=== PATIENT | female | born 1970 | race Caucasian/White ===

== ENCOUNTER → 2018-10-29 14:58 | Outpatient (CLI) | payer OTHER, SELFPAY ==
[2016-08-24 21:06] VITALS: BMI 31.6
[2018-11-04 07:36] LABS: HPV APTIMA, High Risk Negative (Negative)
== END ==
PROVIDERS: Visit Provider Obstetrics & Gynecology
DX: Z12.4 Encounter for screening for malignant neoplasm of cervix (principal)
CPT/HCPCS: 88175; G0145

== ENCOUNTER → 2018-12-22 13:17 | Outpatient (CLI) | payer OTHER, SELFPAY ==
--- NOTE | 2018-12-22 13:23 | BI_ITS ---
MAMMOGRAPHY - BILATERAL SCREENING REASON FOR EXAM: Female, 48 years old. Routine annual screening examination. PERTINENT HISTORY: Grandmother with breast cancer. TECHNIQUE: Digital bilateral breast kristen (3D mammographic acquisition) in the CC and MLO projections. 2-D mediolateral oblique (MLO) and craniocaudad (CC) views of both breasts were obtained. CAD: Full Field Digital Mammography with Computer Added Detection was performed. COMPARISON: Comparison is made with prior abdomen examination dated February 26, 2013. FINDINGS: Breast Composition: There are scattered areas of fibroglandular density. There is a 7.3 mm x 6.2 mm well-defined nodular density in the superior retroareolar region of the left breast. Correlation with ultrasound is recommended. Stable small bilateral axillary lymph nodes. No other significant abnormalities are identified. BI/SCREENING MAMM (CAD), BILAT IMPRESSION: 7.3 mm x 6.2 mm well-defined nodule in the superior retroareolar region of the left breast as described. Correlation with ultrasound is recommended. ASSESSMENT CATEGORY: BIRADS Category 0: Incomplete. Need additional imaging evaluation. A letter regarding these results will be sent to the patient by the facility within 30 days. Approximately 10% of breast cancers are not detected by mammography. A normal mammogram should not delay biopsy of a clinically suspicious abnormality. [id number] Electronically Signed: Wilberto Sommer MD at 12:26 EST , Service support ,
== END ==
PROVIDERS: Referring Provider Obstetrics & Gynecology; Visit Provider Obstetrics & Gynecology
DX: Z12.31 Encounter for screening mammogram for malignant neoplasm of breast (principal)
CPT/HCPCS: 77063; 77067

== ENCOUNTER → 2019-01-04 15:17 | Outpatient (CLI) | payer OTHER, SELFPAY ==
--- NOTE | 2019-01-04 15:19 | US_ITS ---
STUDY: ULTRASOUND BREAST - LEFT REASON FOR EXAM: Female, 48 years old. Abnormal screening mammogram. TECHNIQUE: Axial and longitudinal images of the LEFT breast were performed with a high resolution ultrasound transducer. COMPARISON: Comparison is made with prior mammogram dated December 22, 2018. FINDINGS: LEFT Breast: There is a 7 mm x 6 mm x 3 mm cyst at the 12:00 position breast at 1 cm from nipple. This corresponds to the mammographic abnormality. US/Breast Limited Unilateral IMPRESSION: The mammographic abnormality corresponds to a 7 mm x 6 mm x 3 mm cyst. Routine mammographic follow-up is recommended. ASSESSMENT CATEGORY: BIRADS Category 2: Benign. A letter regarding these results will be sent to the patient by the facility within 30 days. Electronically Signed: Wilberto Sommer MD at 8:40 EST , Service support ,
== END ==
PROVIDERS: Family Provider Internal Medicine; PCP Internal Medicine; Referring Provider Obstetrics & Gynecology; Visit Provider Obstetrics & Gynecology
DX: R92.8 Other abnormal and inconclusive findings on diagnostic imaging of breast (principal)
CPT/HCPCS: 76642

== ENCOUNTER → 2019-04-28 15:30 | Outpatient (CLI) | payer OTHER, SELFPAY ==
[2016-08-24 21:06] VITALS: BMI 31.6
--- NOTE | 2019-04-28 16:01 | EKG12_ITS ---
Test Reason : PRE-OP Blood Pressure : / mmHG Vent. Rate : 074 BPM Atrial Rate : 074 BPM P-R Int : 152 ms QRS Dur : 080 ms QT Int : 372 ms P-R-T Axes : 048 069 021 degrees QTc Int : 412 ms Normal sinus rhythm Normal ECG Confirmed by SUMIT ANGELO, SELVIN ([id number]), editorial writer MAL PINK ([id number]) on 04/29/2019 6:45:18 AM Referred By: Law Hoffman Confirmed By:SELVIN ARANA MD
[2019-04-28 16:45] LABS: Hematocrit 35.1 % (37-47); Hemoglobin 11.3 g/dl (12.0-15.0); Mean Corp Hgb Conc 32.2 g/gl (32-36); Mean Corpuscular Hgb 26.7 pg (27.0-32.0); Mean Corpuscular Volume 82.8 fL (81-99); Mean Platelet Vol. 12.1 fl (6.2-12.0); Platelet Count 235 K/mm3 (150-450); RBC Distribution Width CV 15.2 % (11.6-14.6); RBC Distribution Width SD 45.8 fl (35.1-43.9); Red Blood Count 4.24 M/mm3 (4.2-5.4); White Blood Count 8.4 K/mm3 (4.4-11.0)
[2019-04-28 16:55] LABS: Scan Indicated on CBC? Y/N NO
[2019-04-28 16:58] LABS: Anion Gap 6 (5-15); BUN 17 mg/dL (7-18); BUN/Creat Ratio 29.3 RATIO (10-20); Calcium,Total 8.7 mg/dL (8.5-10.1); Chloride 108 mmol/L (98-107); Creatinine, Serum 0.58 mg/dL (0.55-1.02); EST Glomerular Filtration Rate 117 mL/min (>60); Est Glom Filt Rate - Afr Amer 142 mL/min (>60); Glucose 101 mg/dL (74-106); Sodium Level 141 mmol/L (136-145)
== END ==
PROVIDERS: Family Provider Internal Medicine; PCP Internal Medicine; Referring Provider Physician Assistant; Visit Provider Physician Assistant
DX: Z01.818 Encounter for other preprocedural examination (principal); Z01.810 Encounter for preprocedural cardiovascular examination; E11.9 Type 2 diabetes mellitus without complications
CPT/HCPCS: 36415; 80048; 85027; 93005

== ENCOUNTER → 2019-11-24 | Outpatient (CLI) | payer OTHER, SELFPAY ==
[2019-06-17 08:36] VITALS: BMI 31.6
[2019-12-01 17:49] LABS: HPV APTIMA, High Risk Negative (Negative); HPV Reflexed? YES, CHARGE PATIENT
== END | disposition home or self-care (01) ==
LOC: LABSPEC 15:19
PROVIDERS: Visit Provider Obstetrics & Gynecology
DX: Z12.4 Encounter for screening for malignant neoplasm of cervix (principal)
CPT/HCPCS: 87624; 88175; G0145

== ENCOUNTER → 2019-12-23 15:25 | Outpatient (CLI) | payer OTHER, SELFPAY ==
[2019-06-17 08:36] VITALS: BMI 31.6
[2019-12-01 16:15] VITALS: BMI 31.6
--- NOTE | 2019-12-23 15:42 | BI_ITS ---
MAMMOGRAPHY - BILATERAL SCREENING REASON FOR EXAM: Female, 49 years old. Routine annual screening examination. PERTINENT HISTORY: Grandmother with breast cancer. TECHNIQUE: Digital bilateral breast jocy (3D mammographic acquisition) in the CC and MLO projections. 2-D mediolateral oblique (MLO) and craniocaudad (CC) views of both breasts were obtained. CAD: Full Field Digital Mammography with Computer Added Detection was performed. COMPARISON: Comparison is made with prior study dated December 22, 2018. FINDINGS: Breast Composition: There are scattered areas of fibroglandular density. There are no dominant masses or suspicious calcifications. Stable 7.3 mm by 8mm well-defined nodule density in the superior retroareolar region of the left breast. Prior ultrasound demonstrated this to be a small cyst. Stable small bilateral benign-appearing axillary lymph nodes. No other significant abnormalities are identified. There has been no significant change since the prior study. BI/SCREEN MAMM (CAD) W/JOCY BILAT IMPRESSION: Stable bilateral screening mammogram. Yearly follow-up mammogram recommended. (A) ASSESSMENT CATEGORY: BIRADS Category 2: Benign. A letter regarding these results will be sent to the patient by the facility within 30 days. Approximately 10% of breast cancers are not detected by mammography. A normal mammogram should not delay biopsy of a clinically suspicious abnormality. [id number] Electronically Signed: Wilberto Sommer, at 8:23 EST , Service support ,
== END ==
PROVIDERS: PCP Internal Medicine; Referring Provider Obstetrics & Gynecology; Visit Provider Obstetrics & Gynecology
DX: Z12.31 Encounter for screening mammogram for malignant neoplasm of breast (principal)
CPT/HCPCS: 77063; 77067

== ENCOUNTER → 2020-05-10 13:17 | Outpatient (CLI) | payer OTHER, SELFPAY ==
[2020-05-10 12:55] VITALS: BMI 31.6
[2020-05-10 15:27] LABS: Absolute Lymphocyte Count 1.92 X10^3/uL (0.83-4.51); Absolute Neutrophil Count 2.7 X10^3/uL (2.0-7.7); Basophil# 0.04 X10^3/uL; Basophil% 0.8 % (0-1); Eosinophil# 0.11 X10^3/uL; Eosinophils% 2.1 % (0-5); Hematocrit 41.2 % (37-47); Hemoglobin 13.4 g/dL (12.0-15.0); Lymphocyte # 1.92 X10^3/ul (4.0); Lymphocyte % 37.1 % (19-41); Mean Corp Hgb Conc 32.5 g/dL (32-36); Mean Corpuscular Hgb 27.3 pg (27.0-32.0); Mean Corpuscular Volume 83.9 fL (81-99); Monocyte# 0.44 X10^3/uL; Monocyte% 8.5 % (0-10); NRBC Flagged by Analyzer 0 % (0-5); Neutrophil # 2.66 X10^3/uL (2.7-7.7); Neutrophil % 51.3 % (47-70); Platelet Count 181 K/mm3 (150-450); RBC Distribution Width CV 15.3 % (11.6-14.6); RBC Distribution Width SD 46.4 fl (35.1-43.9); Red Blood Count 4.91 M/mm3 (4.2-5.4); White Blood Count 5.2 K/mm3 (4.4-11.0)
[2020-05-10 16:02] LABS: AST(SGOT) 11 U/L (15-37); Alanine Aminotransfer ALT/SGPT 16 U/L (13-56); Alkaline Phosphatase 51 U/L (45-117); Anion Gap 7 (5-15); BUN 10 mg/dL (7-18); BUN/Creat Ratio 15.9 RATIO (10-20); Calcium,Total 9.1 mg/dL (8.5-10.1); Chloride 102 mmol/L (98-107); Creatinine, Serum 0.63 mg/dL (0.55-1.02); EST Glomerular Filtration Rate 107 mL/min (>60); Est Glom Filt Rate - Afr Amer 129 mL/min (>60); Glucose 91 mg/dL (74-106); Potassium 4.1 mmol/L (3.5-5.1); Sodium Level 138 mmol/L (136-145)
== END ==
PROVIDERS: PCP Internal Medicine; Referring Provider Internal Medicine; Visit Provider Internal Medicine
DX: R06.02 Shortness of breath (principal)
CPT/HCPCS: 36415; 80053; 85025

== ENCOUNTER → 2020-05-10 13:40 | Outpatient (CLI) | payer OTHER, SELFPAY ==
[2020-05-10 12:55] VITALS: BMI 31.6
--- NOTE | 2020-05-10 13:40 | RAD_ITS ---
STUDY: X-RAY CHEST REASON FOR EXAM: Female, 49 years old. CHEST PRESSURE. DR ONLY ORDER PA VIEW TECHNIQUE: Single frontal view of the chest. COMPARISON: August 24, 2016 FINDINGS: The lungs are clear and expanded. There is no demonstrated pleural abnormality. Normal size heart. Normal mediastinum and binh. Normal visualized pulmonary arteries. Normal visualized aortic arch and descending thoracic aorta. Normal visualized thoracic spine. Normal visualized ribs, clavicles, and shoulders. There is no demonstrated abnormality of the visualized soft tissue structures of the upper abdomen. RAD/Chest 1 View IMPRESSION: Normal x-ray examination of the chest. Electronically Signed: Olegario Quinteros MD at 19:34 EDT Tel , Service support ,
== END ==
PROVIDERS: PCP Internal Medicine; Referring Provider Internal Medicine; Visit Provider Internal Medicine
DX: R06.02 Shortness of breath (principal)
CPT/HCPCS: 71045

== ENCOUNTER → 2020-06-07 07:41 | Outpatient (CLI) | payer OTHER, SELFPAY ==
[2020-05-10 12:55] VITALS: BMI 31.6
--- NOTE | 2020-06-07 07:47 | US_ITS ---
STUDY: THYROID ULTRASOUND REASON FOR EXAM: Female, 50 years old. Goiter TECHNIQUE: Ultrasound evaluation of the thyroid was performed with real-time and static myers-scale imaging. COMPARISON: None. FINDINGS: RIGHT LOBE: The right lobe of the thyroid gland is enlarged and measures 5.5 cm x 1.7 cm x 2.0 cm. There is a heterogeneous echotexture. There is a 9 mm x 10 mm x 4 mm solid hypoechoic nodule in the midpole of the right lobe. LEFT LOBE: The left lobe of the thyroid gland is enlarged and measures 5.2 cm x 1.8 cm x 1.6 cm. There is a heterogeneous echotexture. There is a 7 mm x 3 mm x 3 mm solid hypoechoic nodule in the midportion of the lobe. ISTHMUS: The isthmus measures 2.0 mm. The regional lymph nodes are normal. US/Thyroid IMPRESSION: Mild thyromegaly with heterogeneous echotexture. Small solid nodules in both lobes as described Electronically Signed: Wilberto Sommer, at 12:36 EDT , Service support ,
[2020-06-08 07:09] LABS: SARS-COV-2 TOTAL ABS Nonreactive (Nonreactive)
[2020-06-08 20:27] LABS: Anti-Thyroglobulin AB < 1.0 IU/mL (0.0-0.9); Thyroid Peroxidase AB < 9 IU/mL (0-34)
== END ==
PROVIDERS: PCP Internal Medicine; Referring Provider Otolaryngology; Visit Provider Otolaryngology
DX: Z03.818 Encounter for observation for suspected exposure to other biological agents ruled out (principal); E04.9 Nontoxic goiter, unspecified; R06.02 Shortness of breath
CPT/HCPCS: 36415; 76536; 84432; 84443; 86376; 86769; 86800; G2023

== ENCOUNTER 2020-09-14 07:24 | Day surgery (SDC) | payer OTHER, SELFPAY ==
[2020-06-13 16:22] VITALS: BMI 31.6
[2020-09-14 08:11] VITALS: BP 118/61; PULSE 62; RESP 16; TEMP 36.9; O2SAT 100; BMI 28.3
[2020-09-14] MEDS: Lactated Ringers 1,000 ML 100 ML IV (08:15)
--- NOTE | 2020-09-14 08:26 | H&P.OPEN ---
History of Present Illness Date of Admission: 09/14/20 The patient is a 50 year old F here for screening colonoscopy. The patient reports she has never had a colonoscopy in the past. She is not on any blood thinners. She has no abdominal pain or blood in her stool. No family history of colon cancer. Past Medical/Surgical History - Planned Operation Planned Operative Procedure/s: COLONOSCOPY Date of Operative Procedure: 09/14/20 Permit Signed: Yes S.O.S: No Is This Patient Having a Total Joint: No - Previous Hospitalizations/Surgeries HX Hospitalizations: No HX of Surgeries: T&A, BMT. TUBAL 2000. LEEP 2012. PILONIDAL CYST. L SHOULDER SURGERY Any Problems With Anesthesia: No You/Your Family Experience Fever (Hyperthermia) With Anes: No Cholinesterase deficiency: No - Cardiovascular Hx Chest Pain within Last 2 months: No Hx of Irregular Heartbeat and/or Afib: No Hx Heart Attack: No Hx Congestive Heart Failure: No Hx Rheumatic Fever: No Hx Hypertension: Yes - OFF MEDS FOR 5 YRS Hx Internal Defibrillator: No Hx Pacemaker: No Hx Cardiac Catheterization: No Hx Cardiac Surgery/Stents/Etc.: No Hx Stress Test: No HX Edema: No Hx Pain in Legs when Walking/Leg Cramps: No - Respiratory Chronic Cough: No HX of Shortness of Breath: No Hoarseness: No Hx Chronic Obstructive Pulmonary Disease (COPD): No Hx Asthma: No Hx Emphysema: No Hx Sleep Apnea: No Hx Oxygen Use at Home: No Hx Respiratory Tract Infection/Cold (presently): No Do You Snore Loudly (louder than talking or can be heard): No Do You Often Feel Tired/ Fatigued/ Sleepy Dring Daytime?: No Has Anyone Observed You Stop Breathing During Sleep?: No Result (for STOP score): Negative Hx Smoking: No Smoking Status: Never smoker - Gastrointestinal Hx Gastroesophageal Reflux: No Hx Gastrointestinal Disorders: Yes - IBS 25+ YRS AGO Hx Gastrointestinal Bleed: No Hx Ulcer: No Hx Hiatal Hernia: No Difficulty Chewing/Swallowing: No Recent Onset of Swallowing Problems: No Special diet followed at home: No Hx Unplanned Weight Loss of 20#: No HX Unplanned Weight Gain of 20#: No - Neurological Hx Seizures: No HX Syncope/Blackout Spells/Unconsciousness: No Hx CVA/Stroke: No Hx Transient Ischemic Attacks (TIA): No Hx Multiple Sclerosis: No Hx Parkinson's Disease: No Hx Head/Neck Injury: No Hx Headaches: Yes - HX OF MIGRAINES Hx Back Injury/Pain: No Recent Onset of Speech Difficulty: No Restless Legs: No Does patient have nerve stimulator: No - Blood Disorder Hx Leukemia: No Bleeding Tendencies: No Hx Deep Vein Thrombosis: No Hx High Cholesterol: Yes - NO MEDS Blood Transmitted Disease: No Hx Hepatitis: No Hx Cirrhosis: No Hx Anemia: No Hx Blood Disorders: No - Reproduction : No Is Patient Lactating: No Hx Hysterectomy: No Hx Tubal Ligation: Yes Are You Post Menopause: No - Genitourinary Hx Renal Disease: No - Musculoskeletal Hx Arthritis: No Hx Rheumatoid Arthritis: No Hx Gout: No Recent Onset of an Orthopedic Problem: No - Endocrine Hx Diabetes: No Thyroid Disease: No Hx Steroid Therapy: Yes - 03/2020 - Psycho/Social Hx Substance Use: No Hx Alcohol Use: No Hx Anxiety: No Hx Depression: No Mental Illness: No Hx Dementia: No - Miscellaneous Hx Cancer: No Recent Exposure to Contagious Disease: No Active MRSA: No Hx of C-Diff: No Any Loose Teeth: Yes - TEMPORARY CROWN LOWER BACK LEFT Allergies No Known Allergies Allergy (Verified 09/06/20 14:41) - Discharge Is Pt Admitted From a [facility], or a Fdc: No Who Could Help: SON After D/C, Where Do you Plan to Go: Return Home - Physical Exam Vitals/I&O's: Vital Signs Temp Pulse Resp BP Pulse Ox 98.4 F 62 16 118/61 100 09/14/20 08:11 09/14/20 08:11 09/14/20 08:11 09/14/20 08:11 09/14/20 08:11 Oxygen Delivery Method Room Air Weight: 186 lb 8.177 oz Body Mass Index (BMI) 28.3 General: Alert, Oriented x3 Neck: No JVD Lungs: Normal air movement Cardiovascular: Regular rate, Regular Rhythm Abdomen: Soft, Non Tender, Non-Distended Current Medications Lactated Ringer's () 1,000 mls @ 100 mls/hr IV .Q10H ULICES Last Admin: 09/14/20 08:15 Dose: 100 mls/hr Documented by: Assessment/Plan All Active Problems (Last Reviewed 06/13/20 @ 16:19 by Abena N Cogar) Frequent headaches (Resolved) Anemia (Resolved) 50-year-old here for screening colonoscopy I explained endoscopy in detail to the patient. I explained the risks including but not limited to stroke or heart attack with anesthesia, perforation of the GI tract, bleeding, infection. I explained that any of these could necessitate further emergency surgery. The patient understands and all questions were answered sufficiently. The patient wishes to proceed with procedure. Omar Guardado MD Pager: [facility] [address] [place] [address] [address] [place] [address] Office: Surgery Risks - Colonoscopy Risks Include but are not Limited To: Risks include but are not limited to: Bleeding, perforation requiring further surgery, inability to complete colonoscopy requiring barium enema.
--- NOTE | 2020-09-14 09:00 | OP.COLON_ITS ---
Patient Name: Carla Galindo Procedure Date: 09/14/2020 8:32 AM Date of : 1970 Age: 50 Procedure: Colonoscopy Indications: Screening for colorectal malignant neoplasm Providers: Omar Guardado MD Referring MD: Landry Bro MD Medicines: Monitored Anesthesia Care Patient Profile: This is a 50 year old female. Refer to note in patient chart for documentation of history and physical. Last Colonoscopy: none. The patient's first colonoscopy is today. Complications: No immediate complications. Procedure: Pre-Anesthesia Assessment: - Prior to the procedure, a History and Physical was performed, and patient medications and allergies were reviewed. The patient's tolerance of previous anesthesia was also reviewed. The risks and benefits of the procedure and the sedation options and risks were discussed with the patient. All questions were answered, and informed consent was obtained. Prior Anticoagulants: The patient has taken no previous anticoagulant or antiplatelet agents. After reviewing the risks and benefits, the patient was deemed in satisfactory condition to undergo the procedure. After I obtained informed consent, the scope was passed under direct vision. Throughout the procedure, the patient's blood pressure, pulse, and oxygen saturations were monitored continuously. The pediatric colonoscope was introduced through the anus and advanced to the cecum, identified by appendiceal orifice and ileocecal valve. The colonoscopy was performed without difficulty. The patient tolerated the procedure well. The quality of the bowel preparation was good. Scope In: 8:42:24 AM Scope Withdrawal Time 0 hours 6 minutes 8 seconds Scope Out: 8:56:19 AM Total Procedure Duration Time 0 hours 13 minutes 55 seconds Findings: The entire examined colon appeared normal on direct and retroflexion views. Impression: - The entire examined colon is normal on direct and retroflexion views. - No specimens collected. Recommendation: - Discharge patient to home. - Resume previous diet. - Continue present medications. - Repeat colonoscopy in 10 years for screening purposes. Procedure Code(s): --- Professional --- 27766, Colonoscopy, flexible; diagnostic, including collection of specimen(s) by brushing or washing, when performed (separate procedure) Diagnosis Code(s): --- Professional --- Z12.11, Encounter for screening for malignant neoplasm of colon CPT copyright 2017 [employer]. All rights reserved. The codes documented in this report are preliminary and upon alarm field technician review may be revised to meet current compliance requirements. Omar Guardado MD 09/14/2020 9:00:32 AM This report has been signed electronically. Number of Addenda: 0 Note Initiated On: 09/14/2020 8:32 AM
--- NOTE | 2020-09-14 09:01 | OP.CCLET_ITS ---
09/14/2020 Landry Bro MD [address] [place] [address] [place] [address] Re : Colonoscopy procedure for [facility] Dear Dr. Bro This procedure was performed on Monday, September 14, 2020. My impressions and recommendations are as follows: Impressions : - The entire examined colon is normal on direct and retroflexion views. - No specimens collected. Recommendations : - Discharge patient to home. - Resume previous diet. - Continue present medications. - Repeat colonoscopy in 10 years for screening purposes. My findings are described in the full procedure note, which is enclosed. If I can be of further assistance, please feel free to contact me at Doctor phone number(s): , Work: . Sincerely, Omar Guardado MD 09/14/2020 9:00:32 AM This report has been signed electronically.
[2020-09-14 09:02] VITALS: BP 118/61; BP 120/74; PULSE 72; RESP 18; TEMP 36.3; O2SAT 98
[2020-09-14 09:05] VITALS: BP 118/61; BP 118/79; PULSE 59; RESP 16; O2SAT 100
[2020-09-14 09:10] VITALS: BP 118/61; BP 119/74; PULSE 59; RESP 16; O2SAT 100
[2020-09-14 09:14] VITALS: BP 116/74; BP 118/61; PULSE 62; RESP 16; TEMP 36.3; O2SAT 100
[2020-09-14 09:22] VITALS: BP 118/61
== END 2020-09-14 09:30 | disposition home or self-care (01) ==
LOC: EN 07:24 → AC 07:25
PROVIDERS: Anesthesiology; PCP Internal Medicine; Referring Provider Internal Medicine; Visit Provider Surgery
PROC: 0DJD8ZZ Inspection of Lower Intestinal Tract, Via Natural or Artificial Opening Endoscopic (ICD-10-PCS; CPT 45378; principal; 2020-09-14 08:40)
DX: Z12.11 Encounter for screening for malignant neoplasm of colon (principal); Z20.828 Contact with and (suspected) exposure to other viral communicable diseases; I10 Essential (primary) hypertension
CPT/HCPCS: 45378; 87635; C9803; J7120; J2405; U0003

== ENCOUNTER → 2021-03-14 15:43 | Outpatient (CLI) | payer OTHER, SELFPAY ==
[2020-12-12 15:53] VITALS: BMI 31.3
--- NOTE | 2021-03-14 15:45 | BI_ITS ---
MAMMOGRAPHY - BILATERAL SCREENING REASON FOR EXAM: Female, 50 years old. Routine annual screening examination. PERTINENT HISTORY: Grandmother with breast cancer. TECHNIQUE: Digital bilateral breast jocy (3D mammographic acquisition) in the CC and MLO projections. 2-D mediolateral oblique (MLO) and craniocaudad (CC) views of both breasts were obtained. CAD: Full Field Digital Mammography with Computer Added Detection was performed. COMPARISON: Comparison is made with prior study dated 12/23/2019 and 12/22/2018. FINDINGS: Breast Composition: The breasts are heterogeneously dense, which may obscure small masses. There are no dominant masses or suspicious calcifications. The previously seen 7.3 mm x 8 mm well-defined nodule in the superior retroareolar region of the left breast is not seen at this time. Stable benign-appearing bilateral axillary lymph nodes. No other significant abnormalities are identified. BI/SCRN MAMM (CAD)W/JOCY BILAT IMPRESSION: Stable bilateral screening mammogram. Yearly follow-up mammogram recommended. (A) ASSESSMENT CATEGORY: BIRADS Category 2: Benign. A letter regarding these results will be sent to the patient by the facility within 30 days. Approximately 10% of breast cancers are not detected by mammography. A normal mammogram should not delay biopsy of a clinically suspicious abnormality. [id number] Electronically Signed: Wilberto Sommer MD at 8:11 EDT , Service support ,
== END ==
PROVIDERS: PCP Internal Medicine; Referring Provider Obstetrics & Gynecology; Visit Provider Obstetrics & Gynecology
DX: Z12.31 Encounter for screening mammogram for malignant neoplasm of breast (principal)
CPT/HCPCS: 77063; 77067

== ENCOUNTER 2021-04-01 12:54 | Outpatient (RCR) | payer OTHER, SELFPAY ==
[2020-12-12 15:53] VITALS: BMI 31.3
== END 2021-04-22 23:59 ==
LOC: NS 12:54
PROVIDERS: PCP Internal Medicine; Visit Provider Internal Medicine
DX: Z71.3 Dietary counseling and surveillance (principal); E66.9 Obesity, unspecified; Z68.31 Body mass index [BMI] 31.0-31.9, adult
CPT/HCPCS: 97802

== ENCOUNTER → 2021-05-03 12:42 | Outpatient (CLI) | payer OTHER, SELFPAY ==
[2021-04-24 13:09] VITALS: BMI 30.9
[2021-05-01 08:07] VITALS: BMI 30.9
--- NOTE | 2021-05-03 13:32 | ST.MBS ---
Modified Barium Swallow - Patient Information Study Date: 05/03/21 Study Time: 13:00 Direct Billable Minutes: 120 Total Minutes procedure & reportin Diagnosis: dysphagia, unspecified (R13.12) Referring Physician: Landry Bro Reason for Referral: To objectively assess swallow function under fluoroscopy and determine presence of aspiration. Medical History: The patient is a 50/F with past medical history including anemia, anxiety and depression, difficulty swallowing, frequent headaches, heart murmur, high blood pressure, hyperlipidemia, IBS (irritable bowel syndrome), sleep apnea, and throat tightness. Dentition: Natural Teeth Mental Status: WNL Respiratory Status: Oxygenating on Room Air - Study Findings Consistencies: Thin Liquid, [place] Thick Liquid, Honey Thick Liquid, Pudding, Cookie - Penetration-Aspiration Scale Penetration-Aspiration Scale: OBJECTIVE ASSESSMENT OF SWALLOW FUNCTION (QUANTITATIVE ? PER TRIAL): PENETRATION / ASPIRATION SCALE (PICHARDO): 1 = does not enter airway 2 = enters airway/above vocal folds/ejected 3 = enters airway/above vocal folds/not ejected 4 = enters airway/contacts vocal folds/ejected 5 = enters airway/contacts vocal folds/not ejected 6 = enters airway/below vocal folds/ejected 7 = enters airway/below vocal folds/not ejected despite effort 8 = enters airway/below vocal folds/no effort - Penetration-Aspiration Scale Score Thin Liquid via teaspoon Result: 1= does not enter airway Thin Liquid via small single sip from cup Result: 1= does not enter airway Thin Liquid via large single sip from cup Result: 1= does not enter airway Thin Liquid via sequential sips from cup Result: 1= does not enter airway [place] Thick Liquid via large single sip from cup Result: 1= does not enter airway Honey Thick Liquid via large single sip from cup Result: 1= does not enter airway Pudding via teaspoon Result: 1= does not enter airway Thin Liquid via sequential sips from straw Result: 1= does not enter airway - Oral Phase Labial Seal: No Labial Escape Tongue Control During Bolus Hold: Cohesive bolus between tongue to palatal seal Bolus Preparation/Mastication: Timely and efficient chewing and mashing Bolus Transport/Lingual Motion: Brisk tongue motion Oral Residue: Complete oral clearance - Pharyngeal Phase Initiation of Pharyngeal Swallow: Bolus head at posterior angle of ramus at first hyoid excursion Soft Palate Elevation: No bolus between soft palate and pharyngeal wall Laryngeal Elevation: Comp. Superior move thyroid cart w/comp. apprx arytenoid cart-epig pet Anterior Hyoid Excursion: Complete anterior movement Epiglottic Movement: Complete inversion Laryngeal Vestibule Closure at Height of Swallow: Complete; no air/contrast in laryngeal vestibule Pharyngeal Stripping Wave: Present - complete Pharyngoesophageal Segment Opening: Complete distension and complete duration; no obstruction of flow Tongue Base Retraction: No contrast between tongue base and posterior pharyngeal wall Pharyngeal Residue: Complete pharyngeal clearance - Esophageal Phase Esophageal Clearance: Complete clearance - Diagnosis/Impression Diagnosis: Swallow Function WNL Impression: Oral phase primarily marked by timely mastication of solid Vilma Doone shortbread cookie with effective oral clearance. Pharyngeal phase primarily marked by timely swallow onset with no aspiration of any consistencies trialed. No significant pharyngeal residue present. Swallow function within normal limits at this time. - Recommendations Diet: Regular Textures, Thin Liquids Compensatory Strategies: Small Bites, Small Sips, Sitting upright Recommend Repeat Modified Barium Swallow: No Need for Skilled Speech Therapy Services: No Education Completed: 1. Described result of evaluation. - Status Active ST Patient: Active - Contact Information [facility] Speech Therapy:: Radha Bernal MA, CCC-MACHINE OR MACHINERY MECHANIC [address] [place], [place] [id number] [email or web address]
== END ==
PROVIDERS: PCP Internal Medicine; Referring Provider Internal Medicine; Visit Provider Internal Medicine
DX: R13.10 Dysphagia, unspecified (principal); R68.89 Other general symptoms and signs
CPT/HCPCS: 74230; 92611

== ENCOUNTER 2021-05-10 06:45 | Day surgery (SDC) | payer OTHER, SELFPAY ==
[2021-05-01 08:07] VITALS: BMI 30.9
[2021-05-10 07:09] VITALS: BP 136/76; PULSE 65; RESP 16; TEMP 36.4; O2SAT 98; BMI 29.5
[2021-05-10] MEDS: Lactated Ringers 1,000 ML 100 ML IV (07:12)
--- NOTE | 2021-05-10 07:22 | PCM.HP.BLA ---
History and Physical Date of Admission: 05/10/21 Intake Vital Signs 05/01/21 08:03 05/01/21 08:07 Height 5 ft 8 in Weight: 205 lb BMI 31.1 30.9 BP 136/86 H Blood Pressure Location Rt brachial Position Sitting Respiration 16 Pulse 71 Pulse Source Monitor Temp 98.1 F Temp Source Temporal Pulse Oximetry (%) 97 Oxygen Delivery Method room air Intake Visit Reasons: DYSPHAGIA, EGD Chief Complaint: SOB/ Dysphagia Director Business Systems Required: No Accompanied by: Self Is patient in pain?: Yes (neck pain) Allergies No Known Allergies Allergy (Verified 05/01/21 08:04) Medications tizanidine 2 mg tablet 2 mg PO BID PRN #30 tab 04/24/21 [Rx Confirmed 05/01/21] aluminum chloride 20 % topical solution 1 applic TOPICAL ml 05/01/21 [History Confirmed 05/01/21] glycopyrrolate 1 mg tablet 1 mg PO ONCE tab 05/01/21 [History Confirmed 05/01/21] PFSH Medical History (Updated 05/01/21 @ 08:[address] Omar Guardado MD) Anemia Anxiety and depression Difficulty swallowing Fatigue Frequent headaches Heart murmur High blood pressure Hyperlipidemia IBS (irritable bowel syndrome) Sleep apnea Throat tightness Surgical History (Updated 05/01/21 @ 08:06 by Marisol Solitario) History of colonoscopy History of excision of pilonidal cyst History of loop electrosurgical excision procedure (LEEP) History of shoulder surgery History of tonsillectomy and adenoidectomy Family History (Updated 05/01/21 @ 08:02 by Marisol Solitario) Mother Anxiety Depression Father Cancer Melanoma Brother Cancer Hodgkin lymphoma Grandmother Breast cancer Social History (Updated 05/01/21 @ 08:02 by Marisol Solitario) Smoking Status: Never smoker second hand exposure: No alcohol intake: current alcohol intake frequency: a few times a month substance use type: does not use caffeine: Yes what type of physical activity do you participate in: none frequency: does not exercise HPI HPI HPI: COSTA ANDERSON, is a 50 F who presents to the office today for difficulty swallowing. The patient reports she has been short of breath and feeling like she cannot catch her breath and having tightness in her chest. This is been worked up and she was sent here for dysphagia. She also reports that when she swallows she feels lesions with a lot of effort and to not choking. ROS General General: Yes weight change and fatigue; No appetite, colon cancer, breast cancer or weakness HEENT HEENT: Yes difficulty swallowing; No eye injury, eye surgery, swollen glands or hoarseness Endo Endocrine: No thyroid disease, diabetes mellitus, thyroid cancer, Hair loss, heat intolerance or cold intolerance Skin Skin: No rash or changing moles Musc Musculoskeletal: No back problems, arthritis, rheumatoid arthritis, gout or joint pain Cardio Cardiovascular: Yes murmur; No pacemaker, heart disease, atrial fibrillation, high blood pressure, heart attack, heart stent, palpitations, shortness of breat with exertion or chest pain Psych Psychiatric: Yes depression and anxiety; No hearing voices Resp Respiratory: Yes shortness of breath, Yes sleep apnea, No cough, No COPD, No asthma, No emphysema and No wheezing Gastro Gastrointestinal: No abdominal pain, No nausea or vomiting, No diarrhea, No constipation, No blood in stool, No acid reflux, No hemorrhoids, No ulcers, No gallbladder problem and No black,tarry stools Flash Hematologic: No blood thinners, No blood disorders, No bleeding, No anemia and No blood clots Neuro Neurologic: No weakness Exam Const General: cooperative Orientation: alert and oriented x3 HENNY Head: normal to inspection Neck Neck: normal visual inspection and full ROM Chest Chest palpation & inspection: normal inspection of the chest Resp Effort & Inspection: normal respiratory effort Auscultation: clear to auscultation bilaterally Cardio Rate: regular rate Rhythm: regular rhythm GI Inspection: non-distended Palpation: soft and nontender Skin General: no rashes or lesions noted Neuro General: patient alert and patient oriented x3 Extrem General: full ROM Psych Appearance: grossly normal Mental Status: mental status grossly normal Assessment and Plan Assessment and Plan (1) Difficulty swallowing: Status: Acute Qualifiers: Dysphagia type: unspecified Qualified Code(s): R13.10 - Dysphagia, unspecified Orders: Orders: EGD Today Plan - Dr. Omar Guardado MD: The patient is having difficulty swallowing and was sent here for EGD. She is having a swallowing evaluation on Thursday. If this is normal I recommend proceeding with EGD. If this is abnormal she can likely stop her work-up. If EGD is normal she would then move to seeing a testing machine operator for her difficulty swallowing. I explained endoscopy in detail to the patient. I explained the risks including but not limited to stroke or heart attack with anesthesia, perforation of the GI tract, bleeding, infection. I explained that any of these could necessitate further emergency surgery. The patient understands and all questions were answered sufficiently. The patient wishes to proceed with procedure. Omar Guardado MD Pager: [facility] [address] [place] [address] [address] [place] [address] Office: I have re-examined the patient. There are no clinical changes since date of exam.
[2021-05-10 08:05] VITALS: BP 113/73; BP 136/76; PULSE 61; RESP 16; TEMP 36.2; O2SAT 98
[2021-05-10 08:10] VITALS: BP 114/86; BP 136/76; PULSE 59; RESP 16; O2SAT 98
[2021-05-10 08:15] VITALS: BP 129/93; BP 136/76; PULSE 65; RESP 16; O2SAT 99
[2021-05-10 08:20] VITALS: BP 129/69; BP 136/76; PULSE 62; RESP 16; TEMP 36.2; O2SAT 99
[2021-05-10 08:50] VITALS: BP 136/76
--- NOTE | 2021-05-10 12:12 | OP.CCLET_ITS ---
05/10/2021 Landry Bro MD [address] [place] [address] Re : Upper GI endoscopy procedure for Carla Galindo Dear Dr. Bro This procedure was performed on Monday, May 10, 2021. My impressions and recommendations are as follows: Impressions : - Normal esophagus. - Normal stomach. - Normal examined duodenum. - No specimens collected. Recommendations : - Discharge patient to home. - Resume previous diet. - Continue present medications. - Perform ambulatory esophageal manometry at appointment to be scheduled. My findings are described in the full procedure note, which is enclosed. If I can be of further assistance, please feel free to contact me at Doctor phone number(s): , Work: . Sincerely, Omar Guardado MD 05/10/2021 8:05:59 AM This report has been signed electronically.
--- NOTE | 2021-05-10 12:12 | OP.EGD_ITS ---
Patient Name: Carla Galindo Procedure Date: 05/10/2021 7:28 AM Date of : 1970 Age: 50 Procedure: Upper GI endoscopy Indications: Dysphagia Providers: Omar Guardado MD Referring MD: Omar Guardado MD Medicines: Monitored Anesthesia Care Patient Profile: This is a 50 year old female. Refer to note in patient chart for documentation of history and physical. Complications: No immediate complications. Procedure: Pre-Anesthesia Assessment: - Prior to the procedure, a History and Physical was performed, and patient medications and allergies were reviewed. The patient's tolerance of previous anesthesia was also reviewed. The risks and benefits of the procedure and the sedation options and risks were discussed with the patient. All questions were answered, and informed consent was obtained. Prior Anticoagulants: The patient has taken no previous anticoagulant or antiplatelet agents. After reviewing the risks and benefits, the patient was deemed in satisfactory condition to undergo the procedure. After obtaining informed consent, the endoscope was passed under direct vision. Throughout the procedure, the patient's blood pressure, pulse, and oxygen saturations were monitored continuously. The gastroscope was introduced through the mouth, and advanced to the second part of duodenum. The upper GI endoscopy was accomplished without difficulty. The patient tolerated the procedure well. Scope In: 7:57:46 AM Scope Out: 7:59:43 AM Total Procedure Duration Time 0 hours 1 minute 57 seconds Findings: The esophagus was normal. The stomach was normal. The examined duodenum was normal. Impression: - Normal esophagus. - Normal stomach. - Normal examined duodenum. - No specimens collected. Recommendation: - Discharge patient to home. - Resume previous diet. - Continue present medications. - Perform ambulatory esophageal manometry at appointment to be scheduled. Procedure Code(s): --- Professional --- 30878, Esophagogastroduodenoscopy, flexible, transoral; diagnostic, including collection of specimen(s) by brushing or washing, when performed (separate procedure) Diagnosis Code(s): --- Professional --- R13.10, Dysphagia, unspecified CPT copyright 2017 [employer]. All rights reserved. The codes documented in this report are preliminary and upon rfid specialist review may be revised to meet current compliance requirements. Omar Guardado MD 05/10/2021 8:05:59 AM This report has been signed electronically. Number of Addenda: 0 Note Initiated On: 05/10/2021 7:28 AM
== END 2021-05-10 08:55 ==
LOC: EN 06:46 → AC 06:46
PROVIDERS: PCP Internal Medicine; Referring Provider Surgery; Visit Provider Surgery
PROC: 0DJ08ZZ Inspection of Upper Intestinal Tract, Via Natural or Artificial Opening Endoscopic (ICD-10-PCS; CPT 43235; principal; 2021-05-10 07:55)
DX: R13.10 Dysphagia, unspecified (principal); I10 Essential (primary) hypertension; E78.5 Hyperlipidemia, unspecified; F41.9 Anxiety disorder, unspecified; F32.9 Major depressive disorder, single episode, unspecified; G47.30 Sleep apnea, unspecified; Z87.19 Personal history of other diseases of the digestive system; Z79.899 Other long term (current) drug therapy
CPT/HCPCS: 43235; J7120; J2405

== ENCOUNTER → 2021-06-06 06:54 | Outpatient (CLI) | payer OTHER, SELFPAY ==
[2021-06-04 12:25] VITALS: BMI 29.5
[2021-06-06 07:12] LABS: Absolute Lymphocyte Count 2.28 X10^3/uL (0.83-4.51); Absolute Neutrophil Count 3.2 X10^3/uL (2.0-7.7); Basophil# 0.06 X10^3/uL; Eosinophil# 0.18 X10^3/uL; Eosinophils% 2.9 % (0-5); Hematocrit 40.7 % (37-47); Hemoglobin 13.1 g/dL (12.0-15.0); Lymphocyte # 2.28 X10^3/ul (0.83-4.51); Lymphocyte % 36.1 % (19-41); Mean Corp Hgb Conc 32.2 g/dL (32-36); Mean Corpuscular Hgb 27.6 pg (27.0-32.0); Mean Corpuscular Volume 85.7 fL (81-99); Mean Platelet Vol. 11.5 fl (6.2-12.0); Monocyte# 0.61 X10^3/uL; Monocyte% 9.7 % (0-10); NRBC Flagged by Analyzer 0 % (0-5); Neutrophil # 3.15 X10^3/uL (2.7-7.7); Neutrophil % 49.8 % (47-70); Platelet Count 249 K/mm3 (150-450); RBC Distribution Width CV 14.3 % (11.6-14.6); Red Blood Count 4.75 M/mm3 (4.2-5.4); White Blood Count 6.3 K/mm3 (4.4-11.0)
[2021-06-06 08:11] LABS: ALB/GLOB Ratio 0.9 RATIO (0.9-2.4); AST(SGOT) 9 U/L (15-37); Alanine Aminotransfer ALT/SGPT 17 U/L (13-56); Albumin, Serum 3.7 g/dL (3.2-5.0); Alkaline Phosphatase 68 U/L (45-117); Anion Gap 6 (5-15); BUN 13 mg/dL (7-18); BUN/Creat Ratio 17.7 RATIO (10-20); Calcium,Total 9.1 mg/dL (8.5-10.1); Chloride 105 mmol/L (98-107); Cholesterol 294 mg/dL (200); Creatinine, Serum 0.73 mg/dL (0.55-1.02); EST Glomerular Filtration Rate 89 mL/min (>60); Est Glom Filt Rate - Afr Amer 107 mL/min (>60); Globulin 4.2 g/dL (2.2-4.2); Glucose 111 mg/dL (74-106); High Density Lipoprotein 61 mg/dL; Protein, Total 7.9 g/dL (6.4-8.2); Sodium Level 139 mmol/L (136-145); T4 Free Direct 0.96 ng/dL (0.76-1.46); Thyroid Stim Hormone (TSH) 2.07 uIU/mL (0.358-3.74); Triglycerides 169 mg/dL; Very Low Density Lipoprotein 34 mg/dL (5-40)
[2021-06-06 08:45] LABS: Vitamin D,25 Hydroxy 24.9 ng/mL
== END ==
PROVIDERS: PCP Internal Medicine; Referring Provider Physician Assistant; Visit Provider Physician Assistant
DX: Z00.00 Encounter for general adult medical examination without abnormal findings (principal); R49.0 Dysphonia; R53.83 Other fatigue
CPT/HCPCS: 36415; 80053; 80061; 82306; 84439; 84443; 85025

== ENCOUNTER → 2021-06-25 15:58 | Outpatient (CLI) | payer OTHER, SELFPAY ==
[2021-06-04 12:25] VITALS: BMI 29.5
--- NOTE | 2021-06-25 16:00 | US_ITS ---
STUDY: THYROID ULTRASOUND REASON FOR EXAM: Female, 51 years old. NODULE F/U TECHNIQUE: Ultrasound evaluation of the thyroid was performed with real-time and static myers-scale imaging. COMPARISON: 06/07/2020 FINDINGS: RIGHT LOBE: The right lobe of the thyroid gland is enlarged and measures 5.5 x 1.8 x 1.8 cm. There is a heterogeneous echotexture. There are multiple small nodules, increase in conspicuity possibly due to difference in ultrasound machines. There is a 10 x 10 x 5 mm solid hypoechoic nodule in the midpole of the right lobe, not substantially changed. LEFT LOBE: The left lobe of the thyroid gland is enlarged and measures 5.8 x 1.7 x 1.7 cm. There is a heterogeneous echotexture. There are multiple small nodules, increase in conspicuity possibly due to difference in ultrasound machines. Dominant solid and cystic nodule of the inferior left thyroid lobe measures 14 x 9 x 6 mm (previously measured 7 x 3 x 3 mm). ISTHMUS: The isthmus measures 4 mm. The regional lymph nodes are normal. US/Thyroid IMPRESSION: 1. Increased size of inferior left thyroid lobe nodule currently measuring 14 mm. 2. Overall, nodules and gland heterogeneity are increased in conspicuity, possibly due to variation across ultrasound machines. Electronically Signed: Moy Villeda MD (Brooks) at 13:45 EDT , Service support ,
== END ==
PROVIDERS: PCP Internal Medicine; Referring Provider Otolaryngology; Visit Provider Otolaryngology
DX: E04.2 Nontoxic multinodular goiter (principal)
CPT/HCPCS: 76536

== ENCOUNTER → 2021-07-01 15:46 | Outpatient (CLI) | payer OTHER, SELFPAY ==
[2021-06-04 12:25] VITALS: BMI 29.5
[2021-07-01 16:47] LABS: Absolute Lymphocyte Count 2.91 X10^3/uL (0.83-4.51); Absolute Neutrophil Count 5.2 X10^3/uL (2.0-7.7); Basophil# 0.07 X10^3/uL; Basophil% 0.8 % (0-1); Eosinophil# 0.13 X10^3/uL; Eosinophils% 1.4 % (0-5); Hematocrit 39.1 % (37-47); Hemoglobin 12.7 g/dL (12.0-15.0); Lymphocyte # 2.91 X10^3/ul (0.83-4.51); Lymphocyte % 32.4 % (19-41); Mean Corp Hgb Conc 32.5 g/dL (32-36); Mean Corpuscular Hgb 27.8 pg (27.0-32.0); Mean Corpuscular Volume 85.6 fL (81-99); Mean Platelet Vol. 12.3 fl (6.2-12.0); Monocyte# 0.65 X10^3/uL; Monocyte% 7.2 % (0-10); NRBC Flagged by Analyzer 0 % (0-5); Neutrophil # 5.18 X10^3/uL (2.7-7.7); Neutrophil % 57.6 % (47-70); Platelet Count 250 K/mm3 (150-450); RBC Distribution Width SD 43.6 fl (35.1-43.9); Red Blood Count 4.57 M/mm3 (4.2-5.4)
[2021-07-01 17:02] LABS: Erythrocyte Sedimentation Rate 26 mm/hr (0-30)
[2021-07-01 17:13] LABS: Rheumatoid Factor < 10.0 IU/mL (<15)
[2021-07-03 20:08] LABS: Cytoplasmic Ab (C-ANCA) <1:20 titer (Neg:<1:20); SJOGREN'S Anti-SS-A test < 0.2 AI (0.0-0.9); SJOGREN'S Anti-SS-B test < 0.2 AI (0.0-0.9)
[2021-07-04 13:25] LABS: Anti-Nuclear Antibody Test Negative (.)
[2021-07-04 13:26] LABS: Angiotensin Convert Enzyme 57 U/L (14-82); EBV Acute VCA IgM < 36.0 U/mL (0.0-35.9); EBV Early Antigen IgG <9.0 U/mL (0.0-8.9); EBV Nuclear Antigen IgG > 600.0 U/mL (0.0-17.9); EBV-VCA IgG > 600.0 U/mL (0.0-17.9); Perinuclear Ab (P-ANCA) <1:20 titer (Neg:<1:20)
== END ==
PROVIDERS: PCP Internal Medicine; Referring Provider Otolaryngology; Visit Provider Otolaryngology
DX: R53.81 Other malaise (principal)
CPT/HCPCS: 36415; 82164; 85025; 85652; 86038; 86235; 86256; 86431; 86663; 86664; 86665

== ENCOUNTER → 2021-10-11 10:32 | Outpatient (CLI) | payer OTHER, SELFPAY ==
--- NOTE | 2021-10-12 07:02 | PFT ---
INTRODUCTION: The patient is a 51-year-old female that presents for pulmonary function studies secondary to a diagnosis of shortness of breath. Respiratory therapy reported good patient effort. Bronchodilators were used during testing. INTERPRETATION: Forced expiration spirometry demonstrates no evidence of a large airways obstructive ventilatory defect. There was a robust response to aerosolized bronchodilators. Spirograms are of good quality and plateau normally. Body plus tomography was performed and revealed a decreased TLC to 4.79 L, 83% of predicted, indicative of a mild restrictive ventilatory impairment. Diffusing capacity by single breath CO is within normal limits. IMPRESSION: Mild restrictive ventilatory impairment, likely secondary to body habitus. Stigmata of small airways disease noted with significant bronchodilator response.
== END ==
PROVIDERS: PCP Internal Medicine; Referring Provider Internal Medicine Critical Care Medicine; Visit Provider Internal Medicine Critical Care Medicine
DX: R06.02 Shortness of breath (principal)
CPT/HCPCS: 94060; 94726; 94729

== ENCOUNTER → 2021-10-22 11:27 | Outpatient (CLI) | payer OTHER, SELFPAY ==
[2021-10-22 12:03] VITALS: PULSE 71; PULSE 89; PULSE 91; PULSE 92; PULSE 93; PULSE 95; O2SAT 97; O2SAT 98
--- NOTE | 2021-10-22 17:28 | PCM.PSN.6M ---
PSN 6 Minute Walk Test 6 Minute Walk Test 6 Minute Walk Test: 6 Minute Walk Test PSN:6-Minute Walk Test Start: 10/22/21 12:02 Freq: Status: Active Protocol: [id number].6MINW Document 10/22/21 12:03 TIBURCIO (Rec: 10/22/21 12:05 TIBURCIO [id number]) 6 Minute Walk Test Date Performed 10/22/21 Time Performed 11:30 Height 5 ft 8 in Weight: 97.522 kg Weight in Pounds 215.[address]: Nick Staples Assistive device used: None Pre-test Oxygen Delivery Method Room Air Pulse Ox (%) 97 Pulse Rate (60-100 beats/min) 71 Dyspnea Yamilka Scale (0-10) 0 Exertion Yamilka Scale (6-20) 6 1st minute Oxygen Delivery Method Room Air Pulse Ox (%) 97 Pulse Rate (60-100 beats/min) 89 2nd minute Oxygen Delivery Method Room Air Pulse Ox (%) 98 Pulse Rate (60-100 beats/min) 95 3rd minute Oxygen Delivery Method Room Air Pulse Ox (%) 97 Pulse Rate (60-100 beats/min) 91 4th minute Oxygen Delivery Method Room Air Pulse Ox (%) 97 Pulse Rate (60-100 beats/min) 92 5th minute Oxygen Delivery Method Room Air Pulse Ox (%) 97 Pulse Rate (60-100 beats/min) 92 6th minute Oxygen Delivery Method Room Air Pulse Ox (%) 98 Pulse Rate (60-100 beats/min) 93 Dyspnea Yamilka Scale (0-10) 3 Exertion Yamilka Scale (6-20) 13 Post-test Oxygen Delivery Method Room Air Pulse Ox (%) 97 Pulse Rate (60-100 beats/min) 71 Full Laps Walked 25 Partial Lap, Number of Tiles Walked 27 Total Distance Walked (ft) 1502 Interpretation Interpretation: The patient was able to ambulate 1502 feet over the course of 6 minutes on room air with no assistive device or break. The patient experienced no significant desaturation, but did have a peak heart rate of 95 beats per minute. These findings are consistent with deconditioning. Recommendations Recommendations: No supplemental oxygen is indicated at this time.
== END ==
PROVIDERS: PCP Internal Medicine; Referring Provider Internal Medicine Critical Care Medicine; Visit Provider Internal Medicine Critical Care Medicine
DX: R06.02 Shortness of breath (principal)
CPT/HCPCS: 94618

== ENCOUNTER 2021-12-09 11:11 | Outpatient (CLI) | payer OTHER, SELFPAY ==
--- NOTE | 2021-12-09 11:14 | US_ITS ---
STUDY: THYROID ULTRASOUND REASON FOR EXAM: Female, 51 years old. Thyroid nodules follow-up. TECHNIQUE: Ultrasound evaluation of the thyroid was performed with real-time and static myers-scale imaging. COMPARISON: None. FINDINGS: RIGHT LOBE: The right lobe of the thyroid gland is mildly enlarged and measures 5.2 cm x 1.8 cm x 1.4 cm. There is a heterogeneous echotexture. Several small hypoechoic solid nodules seen throughout the right lobe. The largest measures 10 mm x 10 mm x 5 mm. This is unchanged. LEFT LOBE: The left lobe of the thyroid gland is slightly enlarged and measures 5.1 cm x 1.7 cm x 1.2 cm. There is a heterogeneous echotexture. Stable appearance of the scattered solid and cystic nodules of the left lobe. The largest is 12 mm x 6 mm x 4 mm. This is essentially unchanged as compared to prior study. This is in the lower pole. ISTHMUS: The isthmus measures 3 mm. The regional lymph nodes are normal. US/Thyroid IMPRESSION: Mild enlargement of the thyroid gland. Stable appearance of the bilateral thyroid nodules. Electronically Signed: Wilberto Sommer MD at 12:43 EST , Service support ,
== END 2021-12-09 23:59 | disposition short-term general hospital (02) ==
LOC: US 11:12
PROVIDERS: PCP Internal Medicine; Referring Provider Otolaryngology; Visit Provider Otolaryngology
DX: E04.2 Nontoxic multinodular goiter (principal)
CPT/HCPCS: 76536

== ENCOUNTER → 2022-04-01 | Outpatient (CLI) | payer OTHER, SELFPAY ==
[2022-04-07 16:41] LABS: HPV Reflexed? NOT INDICATED
== END | disposition home or self-care (01) ==
PROVIDERS: PCP Internal Medicine; Visit Provider Obstetrics & Gynecology
DX: Z12.4 Encounter for screening for malignant neoplasm of cervix (principal)
CPT/HCPCS: 88175; G0145

== ENCOUNTER → 2022-04-08 | Outpatient (CLI) | payer OTHER, SELFPAY ==
--- NOTE | 2022-04-08 15:34 | BI_ITS ---
MAMMOGRAPHY - BILATERAL SCREENING REASON FOR EXAM: Female, 51 years old. Routine annual screening examination. PERTINENT HISTORY: Mother with breast cancer. Grandmother with breast cancer. TECHNIQUE: Digital bilateral breast jocy (3D mammographic acquisition) in the CC and MLO projections. 2-D mediolateral oblique (MLO) and craniocaudad (CC) views of both breasts were obtained. CAD: Full Field Digital Mammography with Computer Added Detection was performed. COMPARISON: Comparison is made with prior study dated 03/14/2021 and 12/23/2019. FINDINGS: Breast Composition: The breasts are heterogeneously dense, which may obscure small masses. There are no dominant masses or suspicious calcifications. Stable small benign-appearing bilateral axillary lymph nodes. No other significant abnormalities are identified. There has been no significant change since the prior study. BI/SCRN MAMM (CAD)W/JOCY BILAT IMPRESSION: Stable bilateral screening mammogram. Yearly follow-up mammogram recommended. (A) ASSESSMENT CATEGORY: BIRADS Category 2: Benign. A letter regarding these results will be sent to the patient by the facility within 30 days. Approximately 10% of breast cancers are not detected by mammography. A normal mammogram should not delay biopsy of a clinically suspicious abnormality. [id number] Electronically Signed: Wilberto Sommer MD at 8:17 EDT ,
== END | disposition home or self-care (01) ==
LOC: OPBI 15:33
PROVIDERS: PCP Internal Medicine; Visit Provider Obstetrics & Gynecology
DX: Z12.31 Encounter for screening mammogram for malignant neoplasm of breast (principal); Z80.3 Family history of malignant neoplasm of breast
CPT/HCPCS: 77063; 77067

== ENCOUNTER → 2022-09-01 | Outpatient (CLI) | payer OTHER, SELFPAY ==
[2022-09-01 12:12] LABS: Absolute Lymphocyte Count 2.26 X10^3/uL (0.83-4.51); Absolute Neutrophil Count 3.3 X10^3/uL (2.0-7.7); Basophil# 0.06 X10^3/uL; Basophil% 0.9 % (0-1); Eosinophil# 0.17 X10^3/uL; Eosinophils% 2.6 % (0-5); Hematocrit 39.4 % (37-47); Hemoglobin 12.6 g/dL (12.0-15.0); Lymphocyte # 2.26 X10^3/ul (0.83-4.51); Lymphocyte % 35.2 % (19-41); Mean Corpuscular Hgb 28.1 pg (27.0-32.0); Mean Corpuscular Volume 87.8 fL (81-99); Mean Platelet Vol. 13.4 fl (6.2-12.0); Monocyte# 0.59 X10^3/uL; Monocyte% 9.2 % (0-10); NRBC Flagged by Analyzer 0 % (0-5); Neutrophil # 3.32 X10^3/uL (2.7-7.7); Neutrophil % 51.8 % (47-70); Platelet Count 219 K/mm3 (150-450); RBC Distribution Width CV 15.4 % (11.6-14.6); Red Blood Count 4.49 M/mm3 (4.2-5.4); White Blood Count 6.4 K/mm3 (4.4-11.0)
[2022-09-01 12:22] LABS: ALB/GLOB Ratio 0.8 RATIO (0.9-2.4); AST(SGOT) 15 U/L (15-37); Alanine Aminotransfer ALT/SGPT 22 U/L (13-56); Albumin, Serum 3.4 g/dL (3.2-5.0); Alkaline Phosphatase 62 U/L (45-117); Anion Gap 6 (5-15); BUN 8 mg/dL (7-18); BUN/Creat Ratio 11.9 RATIO (10-20); Calcium,Total 9.1 mg/dL (8.5-10.1); Chloride 105 mmol/L (98-107); Cholesterol 194 mg/dL (200); Creatinine, Serum 0.68 mg/dL (0.55-1.02); EST Glomerular Filtration Rate 97 mL/min (>60); Est Glom Filt Rate - Afr Amer 118 mL/min (>60); Globulin 4.2 g/dL (2.2-4.2); Glucose 95 mg/dL (74-106); High Density Lipoprotein 49 mg/dL; Potassium 4.4 mmol/L (3.5-5.1); Protein, Total 7.6 g/dL (6.4-8.2); Sodium Level 139 mmol/L (136-145); Triglycerides 189 mg/dL; Very Low Density Lipoprotein 38 mg/dL (5-40)
[2022-09-01 12:27] LABS: Vitamin D,25 Hydroxy 21.4 ng/mL
--- NOTE | 2022-09-01 14:46 | ECHOD_ITS ---
Version 2 Reason For Study: MURMUR Procedure This was a 2D Doppler, Color Flow transthoracic echocardiogram. Exam performed in department. Left Ventricle Normal LV size. Left ventricular systolic function is normal. The estimated ejection fraction is 65 %. Normal diastology for age. No regional wall motion abnormalities noted. Right Ventricle Normal RV size. Normal systolic function. Atria The left atrium is mildly enlarged. Normal right atrium. Mitral Valve Normal mitral valve. Tricuspid Valve Normal tricuspid valve. Mild tricuspid valve insufficiency. Pulmonary artery systolic pressure is 25 mmHg. Aortic Valve Normal aortic valve. Trisinus/trileaflet aortic valve. Pulmonic Valve Normal pulmonic valve. Great Vessels Normal aortic root. The pulmonary artery is normal size. Normal inferior vena cava. Pericardium/Pleural No pericardial effusion. MMode/2D Measurements & Calculations LVIDd: 5.2 cm IVSd: 0.80 cm Ao root diam: 3.3 cm LVIDs: 3.0 cm LVPWd: 0.84 cm RVDd: 2.9 cm FS: 43.0 % LAV(MOD-sp4): 73.8 ml LVAd ap4: 33.5 cm2 SV(MOD-sp4): 66.6 ml LVLd ap4: 8.6 cm EDV(MOD-sp4): 109.1 ml EDV(sp4-el): 110.9 ml LVAs ap4: 18.2 cm2 LVLs ap4: 6.4 cm ESV(MOD-sp4): 42.5 ml ESV(sp4-el): 44.0 ml EF(MOD-sp4): 61.0 % EF(sp4-el): 60.3 % SV(sp4-el): 66.9 ml LA A4 area: 23.7 cm2 LA dimension(2D): 3.7 cm RA A4 area: 18.7 cm2 Time Measurements MV dec time: 0.23 sec Doppler Measurements & Calculations MV E max shimon: 106.7 cm/sec Lat Peak E' Shimon: 11.4 cm/sec Med Peak E' Shimon: 12.0 cm/sec MV A max shimon: 77.0 cm/sec E/E' lat: 9.4 E/E' med: 8.9 MV E/A: 1.4 MV V2 max: 106.8 cm/sec Ao V2 max: 181.9 cm/sec MV max P.6 mmHg MV dec slope: 470.4 cm/sec2 Ao max P.3 mmHg MV V2 mean: 65.9 cm/sec Ao V2 mean: 127.3 cm/sec MV mean P.0 mmHg Ao mean P.3 mmHg MV V2 VTI: 39.0 cm Ao V2 VTI: 39.2 cm LV V1 max: 140.7 cm/sec PA V2 max: 122.8 cm/sec TR max shimon: 239.3 cm/sec LV V1 max P.9 mmHg PA V2 mean: 90.3 cm/sec TR max P.9 mmHg LV V1 mean P.3 mmHg LV V1 mean: 98.1 cm/sec LV V1 VTI: 31.5 cm ECHO/Echo Complete Interpretation Summary Normal LV size. Left ventricular systolic function is normal. The estimated ejection fraction is 65 %. Pulmonary artery systolic pressure is 25 mmHg. The left atrium is mildly enlarged. The global longitudinal strain is normal. The global longitudinal strain = -22. 2 % (normal). Ordering Physician: Leah Salvador Referring Physician: Leah Salvador Performed By: Rafia Garza RCS
== END | disposition home or self-care (01) ==
LOC: CVS 08:05
PROVIDERS: PCP Internal Medicine; Referring Provider Internal Medicine; Visit Provider Internal Medicine
DX: R01.1 Cardiac murmur, unspecified (principal); E78.2 Mixed hyperlipidemia; E55.9 Vitamin D deficiency, unspecified
CPT/HCPCS: 36415; 80053; 80061; 82306; 85025; 93306

== ENCOUNTER → 2022-10-14 | Outpatient (CLI) | payer OTHER, SELFPAY ==
[2022-10-14 17:06] LABS: Anion Gap 5 (5-15); BUN 13 mg/dL (7-18); BUN/Creat Ratio 20.3 RATIO (10-20); Calcium,Total 9.2 mg/dL (8.5-10.1); Chloride 104 mmol/L (98-107); Creatinine, Serum 0.64 mg/dL (0.55-1.02); EST Glomerular Filtration Rate 103 mL/min (>60); Est Glom Filt Rate - Afr Amer 125 mL/min (>60); Glucose 103 mg/dL (74-106); Potassium 3.9 mmol/L (3.5-5.1); Sodium Level 140 mmol/L (136-145); Troponin-I HS 6 pg/mL (3.0-54.0)
== END | disposition home or self-care (01) ==
LOC: BIMLAB 16:06
PROVIDERS: PCP Internal Medicine; Referring Provider Internal Medicine; Visit Provider Internal Medicine
DX: I10 Essential (primary) hypertension (principal)
CPT/HCPCS: 36415; 80048; 84484

== ENCOUNTER 2022-11-04 16:00 | Outpatient (RCR) | payer OTHER, SELFPAY ==
--- NOTE | 2022-10-15 16:31 | HP.PTEVAL ---
Patient's Visit Information COSTA ANDERSON is a 52 year old F referred to Physical Therapy by NELSON Adams with a diagnosis of B PFS and OA knees. Date of Evaluation: 10/15/22 Physical Therapist: Javier Sims DPT, OCS, CSCS - Visit Plan Frequency: 2x /Week Duration: 4-6 Weeks Plan: 2x/week for 4-6 weeks for. 1. ensure full ROM flexion without pain, may PROM and stretch quad until full. 2. strengthen hips and knees without increased pain. 3. When painfree, progress back to crossfit esque workout for weight loss slowly as tolerated. ice as needed. - Subjective B knee pain, started with crossfit 5x/week early July and that is when pain started. Saw ortho pedic when she could not muscle through it. Diagnosed with PFS. She put her on meloxicam 09/24 and feels much better but still cannot squat or get down on floor. Knees hurt anteriorly R>L to 10/10 prior to meloxicam, now is 2-3/10 intermittently. Worse with lifting knee and bending it full. Descending steps and excessive walking also bother it. Sleep is not interrupted now. Has stopped exercising for last two weeks. Basic ADLs are getting done now but were difficult at first. H/o intermittent knee arthritic pain, saw [facility] years ago and did not get treated. 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 - Pain B anterior knees. Pain Intensity (Out of 10): 2 Pain Intensity Range: 0, 9 - Objective Walks normal today without antalgia. Trasnfers I bed and chair. Steps are reciprocal with slight pain R anterior knee ascending and descending with knee bent. Tender to touch lateral patella B minimally today. Tightness obvious in B HS and quads minimally causing pain with stretch R>L. AROM R knee 0-105 and L knee 0-130, R knee improved quickly with ROM but still some wincing pain. strength knee felxiona dn ext 4+ B without pain, ankles 4+ all directions without pain. hips abd and extension 4- no pain, flexion 4 no pain. - valgus and varus B. - bounce home B. - ant drawer. - patellar grind today. - Balance/Special Test Scores Lower Extremity Functional Score: 24 - Goals Goal 1:: Full AROM B knees without pain. Goal Time Frame: 4-6 Weeks Goal 2:: Patient feel knee pain is 99% better and daily work and home function normal Goal Time Frame: 6-8 Weeks Goal 3:: I ex to strengthen LE and wean back to general workout for weight loss Goal Time Frame: 4-6 Weeks Goal 4:: LEFS 64 Goal Time Frame: 4-6 Weeks - Rehabilitation Potential Physical Therapy Diagnosis: Inflammation in B knees form overuse and caused weakness and dysfunction Rehabilitation Potential: Good - Anticipated Interventions Patient/Client Instruction: Educate patient on: Condition, Plan of Care For the Purpose of:: To decrease pain, To increase ROM, To improve muscle performance and motor function, To increase tolerance to activity/condition/position Therapeutic Exercise to Include: Strength training, Flexibilty training, Passive ROM, Active ROM For the Purpose of:: To decrease pain, To increase ROM, To increase tolerance to activity/condition/position, To improve gait and locomotor functions Manual Therapy Techniques to Include: Passive ROM For the Purpose of:: To increase ROM Cryotherapy (ice pack, ice massage): Yes For the Purpose of:: To decrease pain, To decrease swelling/inflammation Thank you for the opportunity to evaluate your patient. For Medicare and Medicare HMO plans, please review the plan of care and approve it. It will need to be FAXED BACK to us at [phone] for Medicare purposes. For Medicare only, by signing this I certify the plan of care. Please let me know if there are questions or concerns regarding this plan of care. Physician Signature: Date:
--- NOTE | 2022-12-29 08:13 | HP.PT.NRP ---
COSTA ANDERSON was seen in my office for initial evaluation on 10/15/22. The following Plan of Care was established for this patient: Initial Frequency: 2x /Week Initial Duration: 4-6 Weeks Patient/Client Instruction: Educate patient on: Condition, Plan of Care For the Purpose of:: To decrease pain, To increase ROM, To improve muscle performance and motor function, To increase tolerance to activity/condition/position Therapeutic Exercise to Include: Strength training, Flexibilty training, Passive ROM, Active ROM For the Purpose of:: To decrease pain, To increase ROM, To increase tolerance to activity/condition/position, To improve gait and locomotor functions Manual Therapy Techniques to Include: Passive ROM For the Purpose of:: To increase ROM Cryotherapy (ice pack, ice massage): Yes For the Purpose of:: To decrease pain, To decrease swelling/inflammation This patient was last seen in our office 11/04/22. Pertinent comments regarding their Physical therapy will appear below: Pt seen 5 visits of POC and cancelled the last two due to illness. She was to call and get back on the schedule and did not. at this point, it has been over 6 weeks and I will discontinue due to nonattendance. At this point I will be discontinuing this patient from physical therapy. I would be happy to see this patient again in the future if found appropriate by the physician. Thank you! Javier Sims, DPT, OCS, CSCS Balance/Gait/Functional tests - Balance/Special Test Scores Lower Extremity Functional Score: 24
== END 2022-11-04 19:00 | disposition home or self-care (01) ==
LOC: PT 16:00
PROVIDERS: PCP Internal Medicine
DX: M22.2X1 Patellofemoral disorders, right knee (principal); M22.2X2 Patellofemoral disorders, left knee; M17.0 Bilateral primary osteoarthritis of knee
CPT/HCPCS: 97110; 97140; 97161

== ENCOUNTER → 2023-08-03 | Outpatient (CLI) | payer BC, SELFPAY ==
[2023-08-03 11:07] LABS: Bacteria 0 SEEN /hpf (None Seen); Mucous, Urine 0 SEEN /hpf (<or=2+); Red Blood Cells-Urine 0 SEEN /hpf (0-5)
[2023-08-03 12:11] LABS: Absolute Lymphocyte Count 2.69 X10^3/uL (0.83-4.51); Absolute Neutrophil Count 3.9 X10^3/uL (2.0-7.7); Basophil# 0.06 X10^3/uL; Basophil% 0.8 % (0-1); Eosinophil# 0.16 X10^3/uL; Eosinophils% 2.2 % (0-5); Hematocrit 41.1 % (37-47); Hemoglobin 13.4 g/dL (12.0-15.0); Lymphocyte # 2.69 X10^3/ul (0.83-4.51); Lymphocyte % 36.7 % (19-41); Mean Corp Hgb Conc 32.6 g/dL (32-36); Mean Corpuscular Hgb 28.4 pg (27.0-32.0); Mean Corpuscular Volume 87.1 fL (81-99); Mean Platelet Vol. 12.1 fl (6.2-12.0); Monocyte# 0.53 X10^3/uL; Monocyte% 7.2 % (0-10); NRBC Flagged by Analyzer 0 % (0-5); Neutrophil # 3.85 X10^3/uL (2.7-7.7); Neutrophil % 52.6 % (47-70); Platelet Count 263 K/mm3 (150-450); RBC Distribution Width SD 41.4 fl (35.1-43.9); Red Blood Count 4.72 M/mm3 (4.2-5.4); White Blood Count 7.3 K/mm3 (4.4-11.0)
[2023-08-03 12:23] LABS: Color, Urine Yellow (Yellow); Glucose, Dipstick Normal (Normal); Ketone-Dipstick Negative (Negative); Leukocyte Esterase-Dipstick 100 /ul (Negative); Nitrite-Dipstick Negative (Negative); Occult Blood-Urine Negative /ul (Negative); Protein-Dipstick Negative (Negative); Urine Bilirubin Dipstick Negative (Negative); Urine Clarity Clear (Clear); Urine Urobilinogen Normal (Normal)
[2023-08-03 12:47] LABS: Vitamin D,25 Hydroxy 20.6 ng/mL
[2023-08-03 13:05] LABS: Squamous Epithelial Cells - UA 0-5 SEEN /hpf (5-10); White Blood Cells 10-25 SEEN /hpf (0-5)
[2023-08-03 13:08] LABS: ALB/GLOB Ratio 0.8 RATIO (0.9-2.4); AST(SGOT) 13 U/L (15-37); Alanine Aminotransfer ALT/SGPT 22 U/L (13-56); Albumin, Serum 3.7 g/dL (3.2-5.0); Alkaline Phosphatase 88 U/L (45-117); Anion Gap 7 (5-15); BUN 10 mg/dL (7-18); BUN/Creat Ratio 13.1 RATIO (10-20); Calcium,Total 9.3 mg/dL (8.5-10.1); Chloride 104 mmol/L (98-107); Cholesterol 263 mg/dL (200); Creatinine, Serum 0.76 mg/dL (0.55-1.02); EST Glomerular Filtration Rate 84 mL/min (>60); Est Glom Filt Rate - Afr Amer 102 mL/min (>60); Globulin 4.6 g/dL (2.2-4.2); Glucose 93 mg/dL (74-106); High Density Lipoprotein 46 mg/dL; Potassium 3.9 mmol/L (3.5-5.1); Protein, Total 8.3 g/dL (6.4-8.2); Sodium Level 137 mmol/L (136-145); Thyroid Stim Hormone (TSH) 1.78 uIU/mL (0.358-3.74); Triglycerides 283 mg/dL; Very Low Density Lipoprotein 57 mg/dL (5-40)
== END | disposition home or self-care (01) ==
LOC: BIMLAB 11:05
PROVIDERS: PCP Internal Medicine; Referring Provider Internal Medicine; Visit Provider Internal Medicine
DX: I10 Essential (primary) hypertension (principal); E55.9 Vitamin D deficiency, unspecified; E66.9 Obesity, unspecified; R35.0 Frequency of micturition
CPT/HCPCS: 36415; 80053; 80061; 81001; 82306; 84443; 85025

== ENCOUNTER → 2023-08-07 | Outpatient (CLI) | payer BC, SELFPAY | END | disposition home or self-care (01) | LOC: BIMLAB 07:58 → LABSPEC 07:59 | PROVIDERS: PCP Internal Medicine; Referring Provider Internal Medicine; Visit Provider Internal Medicine | DX: R35.0 Frequency of micturition (principal) | CPT/HCPCS: 87086; 87088 ==

== ENCOUNTER → 2023-09-21 | Outpatient (CLI) | payer BC, SELFPAY ==
[2023-09-21 16:47] LABS: Hemoglobin A1c 6.2 % (3.8-5.6)
== END | disposition home or self-care (01) ==
LOC: BIMLAB 12:02
PROVIDERS: PCP Internal Medicine; Visit Provider Internal Medicine
DX: R73.09 Other abnormal glucose (principal)
CPT/HCPCS: 36415; 83036

== ENCOUNTER → 2024-02-24 | Outpatient (CLI) | payer BC, SELFPAY ==
[2024-02-24 15:20] LABS: Absolute Lymphocyte Count 1.09 X10^3/uL (0.83-4.51); Absolute Neutrophil Count 4.7 X10^3/uL (2.0-7.7); Basophil# 0.05 X10^3/uL; Basophil% 0.7 % (0-1); Eosinophil# 0.11 X10^3/uL; Eosinophils% 1.6 % (0-5); Hematocrit 40.9 % (37-47); Hemoglobin 13.5 g/dL (12.0-15.0); Lymphocyte # 1.09 X10^3/ul (0.83-4.51); Lymphocyte % 16.1 % (19-41); Mean Corpuscular Volume 84.9 fL (81-99); Mean Platelet Vol. 12.7 fl (6.2-12.0); Monocyte# 0.82 X10^3/uL; Monocyte% 12.1 % (0-10); NRBC Flagged by Analyzer 0 % (0-5); Neutrophil # 4.69 X10^3/uL (2.7-7.7); Neutrophil % 69.2 % (47-70); Platelet Count 219 K/mm3 (150-450); RBC Distribution Width CV 13.2 % (11.6-14.6); RBC Distribution Width SD 41.3 fl (35.1-43.9); Red Blood Count 4.82 M/mm3 (4.2-5.4); White Blood Count 6.8 K/mm3 (4.4-11.0)
[2024-02-24 15:33] LABS: ALB/GLOB Ratio 0.8 RATIO (0.9-2.4); AST(SGOT) 45 U/L (15-37); Alanine Aminotransfer ALT/SGPT 52 U/L (13-56); Albumin, Serum 3.5 g/dL (3.2-5.0); Alkaline Phosphatase 93 U/L (45-117); Anion Gap 6 (5-15); BUN 7 mg/dL (7-18); BUN/Creat Ratio 11.5 RATIO (10-20); Calcium,Total 8.8 mg/dL (8.5-10.1); Chloride 103 mmol/L (98-107); Creatinine, Serum 0.61 mg/dL (0.55-1.02); EST Glomerular Filtration Rate 109 mL/min (>60); Est Glom Filt Rate - Afr Amer 132 mL/min (>60); Globulin 4.3 g/dL (2.2-4.2); Glucose 146 mg/dL (74-106); Protein, Total 7.8 g/dL (6.4-8.2); Sodium Level 137 mmol/L (136-145)
[2024-02-24 16:40] LABS: Thyroid Stim Hormone (TSH) 1.15 uIU/mL (0.358-3.74); Troponin-I HS 4 pg/mL (3.0-54.0)
== END | disposition home or self-care (01) ==
LOC: BIMLAB 14:30
PROVIDERS: PCP Internal Medicine; Referring Provider Physician Assistant; Visit Provider Physician Assistant
DX: R53.83 Other fatigue (principal); R00.2 Palpitations
CPT/HCPCS: 36415; 80053; 84443; 84484; 85025

== ENCOUNTER → 2024-04-27 | Outpatient (CLI) | payer BC, SELFPAY ==
--- NOTE | 2024-04-26 16:41 | BI_ITS ---
MAMMOGRAPHY - BILATERAL SCREENING REASON FOR EXAM: Female, 53 years old. Routine annual screening examination. PERTINENT HISTORY: Mother with breast cancer. Grandmother with breast cancer. TECHNIQUE: Digital bilateral breast jocy (3D mammographic acquisition) in the CC and MLO projections. 2-D mediolateral oblique (MLO) and craniocaudad (CC) views of both breasts were obtained. CAD: Full Field Digital Mammography with Computer Added Detection was performed. COMPARISON: Comparison is made with prior study April 08, 2022 and March 14, 2021. FINDINGS: Breast Composition: There are scattered areas of fibroglandular density. There are no dominant masses or suspicious calcifications. Stable 7 mm x 6 mm well-defined nodule in the superior retroareolar region of the left breast. This was demonstrated to be a cyst on prior sonogram. Stable small benign-appearing bilateral axillary lymph nodes. No other significant abnormalities are identified. There has been no significant change since the prior study. BI/SCRN MAMM (CAD)W/JOCY BILAT IMPRESSION: Stable bilateral screening mammogram. Yearly follow-up mammogram recommended. (A) ASSESSMENT CATEGORY: BIRADS Category 2: Benign. A letter regarding these results will be sent to the patient by the facility within 30 days. Approximately 10% of breast cancers are not detected by mammography. A normal mammogram should not delay biopsy of a clinically suspicious abnormality. [id number] Electronically Signed: Wilberto Sommer MD at 8:39 EDT ,
== END | disposition home or self-care (01) ==
PROVIDERS: PCP Internal Medicine; Referring Provider Internal Medicine; Visit Provider Internal Medicine
DX: Z12.31 Encounter for screening mammogram for malignant neoplasm of breast (principal); Z80.3 Family history of malignant neoplasm of breast
CPT/HCPCS: 77063; 77067

== ENCOUNTER → 2024-04-28 | Outpatient (CLI) | payer BC, SELFPAY ==
[2024-04-28 12:51] LABS: Hemoglobin A1c 6.6 % (3.8-5.6)
[2024-04-28 12:56] LABS: Vitamin D,25 Hydroxy 14.8 ng/mL
== END | disposition home or self-care (01) ==
LOC: BIMLAB 08:01
PROVIDERS: PCP Internal Medicine; Referring Provider Internal Medicine; Visit Provider Internal Medicine
DX: E55.9 Vitamin D deficiency, unspecified (principal); R73.03 Prediabetes
CPT/HCPCS: 36415; 82306; 83036

== ENCOUNTER → 2024-05-02 | Outpatient (CLI) | payer BC, SELFPAY | END | disposition home or self-care (01) | PROVIDERS: PCP Internal Medicine; Referring Provider Internal Medicine; Visit Provider Internal Medicine | DX: G47.10 Hypersomnia, unspecified (principal); R29.818 Other symptoms and signs involving the nervous system | CPT/HCPCS: 95806 ==

== ENCOUNTER → 2024-06-13 | Outpatient (CLI) | payer BC, SELFPAY ==
--- NOTE | 2024-06-13 12:55 | US_ITS ---
STUDY: THYROID ULTRASOUND REASON FOR EXAM: Female, 54 years old. Thyroid nodules TECHNIQUE: Ultrasound evaluation of the thyroid was performed with real-time and static myers-scale imaging. COMPARISON: Comparison is made with prior study dated December 09, 2021. FINDINGS: RIGHT LOBE: The right lobe of the thyroid gland measures 4.9 cm x 1.8 cm x 2.5 cm. There is a heterogeneous echotexture. Multiple small hypoechoic nodules are seen scattered throughout the right lobe. The largest nodule measures 1 cm x 0.9 cm x 0.6 cm. This is unchanged. LEFT LOBE: The left lobe of the thyroid gland measures 4.9 cm x 1.8 cm x 1.8 cm. There is a heterogeneous echotexture. Multiple hypoechoic solid nodules are seen. The largest measures 8 mm x 8 mm x 6 mm. This has decreased in size as compared to prior study. ISTHMUS: The isthmus measures 3 mm. The regional lymph nodes are normal. US/Thyroid IMPRESSION: Heterogeneous appearance of both lobes of the thyroid gland. Multiple small hypoechoic solid nodule seen throughout both lobes. Essentially unchanged. Electronically Signed: Wilberto Sommer MD at 12:39 EDT ,
== END | disposition home or self-care (01) ==
PROVIDERS: PCP Internal Medicine; Referring Provider Internal Medicine; Visit Provider Internal Medicine
DX: E04.1 Nontoxic single thyroid nodule (principal)
CPT/HCPCS: 76536

== ENCOUNTER → 2024-06-29 | Outpatient (CLI) | payer BC, SELFPAY ==
[2024-06-29 12:21] LABS: Absolute Lymphocyte Count 2.97 X10^3/uL (0.83-4.51); Basophil# 0.05 X10^3/uL; Basophil% 0.8 % (0-1); Eosinophil# 0.11 X10^3/uL; Eosinophils% 1.7 % (0-5); Hematocrit 44.9 % (37-47); Hemoglobin 14.6 g/dL (12.0-15.0); Lymphocyte # 2.97 X10^3/ul (0.83-4.51); Lymphocyte % 44.7 % (19-41); Mean Corp Hgb Conc 32.5 g/dL (32-36); Mean Corpuscular Hgb 27.6 pg (27.0-32.0); Mean Corpuscular Volume 84.9 fL (81-99); Mean Platelet Vol. 13.1 fl (6.2-12.0); Monocyte# 0.48 X10^3/uL; Monocyte% 7.2 % (0-10); NRBC Flagged by Analyzer 0 % (0-5); Neutrophil # 3.02 X10^3/uL (2.7-7.7); Neutrophil % 45.3 % (47-70); Platelet Count 246 K/mm3 (150-450); RBC Distribution Width CV 13.2 % (11.6-14.6); Red Blood Count 5.29 M/mm3 (4.2-5.4); White Blood Count 6.7 K/mm3 (4.4-11.0)
[2024-06-29 12:39] LABS: ALB/GLOB Ratio 0.9 RATIO (0.9-2.4); AST(SGOT) 15 U/L (15-37); Alanine Aminotransfer ALT/SGPT 21 U/L (13-56); Albumin, Serum 3.9 g/dL (3.2-5.0); Alkaline Phosphatase 97 U/L (45-117); Anion Gap 6 (5-15); BUN 11 mg/dL (7-18); BUN/Creat Ratio 15.5 RATIO (10-20); Calcium,Total 9.5 mg/dL (8.5-10.1); Chloride 105 mmol/L (98-107); Cholesterol 240 mg/dL (200); Creatinine, Serum 0.71 mg/dL (0.55-1.02); EST Glomerular Filtration Rate 91 mL/min (>60); Est Glom Filt Rate - Afr Amer 111 mL/min (>60); Globulin 4.4 g/dL (2.2-4.2); Glucose 91 mg/dL (74-106); High Density Lipoprotein 45 mg/dL; Potassium 4.2 mmol/L (3.5-5.1); Protein, Total 8.3 g/dL (6.4-8.2); Sodium Level 139 mmol/L (136-145); Triglycerides 209 mg/dL; Very Low Density Lipoprotein 42 mg/dL (5-40)
[2024-06-29 12:40] LABS: Vitamin D,25 Hydroxy 62.7 ng/mL
[2024-06-30 14:09] LABS: ANTINUCLEAR ANTIBODIES DIRECT Negative (Negative)
== END | disposition home or self-care (01) ==
LOC: BIMLAB 11:05
PROVIDERS: PCP Internal Medicine; Referring Provider Physician Assistant; Visit Provider Physician Assistant
DX: R53.83 Other fatigue (principal); E78.5 Hyperlipidemia, unspecified; E55.9 Vitamin D deficiency, unspecified
CPT/HCPCS: 36415; 80053; 80061; 82306; 85025; 86038; 86225; 86235

== ENCOUNTER → 2024-08-10 | Outpatient (CLI) | payer BC, SELFPAY ==
--- NOTE | 2024-08-10 14:10 | STRESSREP ---
Stress Test Report Date: 08/10/2024 Procedure: Exercise tolerance test/imaging study Indications: Chest pain Consent: Per the patient Procedure: The patient exercised on a Isaiah protocol for 6 minutes and 30 seconds achieving a peak heart rate of 144 bpm (86% predicted maximal heart rate) with a peak blood pressure 168/80 mmHg and a peak MET capacity of 8.5 METs. The baseline ECG demonstrated sinus rhythm. The peak exercise ECG demonstrated no ischemic changes. Frequent PVCs noted with exercise and in recovery. The functional capacity was considered average. There was complaint of chest tightness with exercise. The examination was discontinued secondary to target heart rate being achieved and chest tightness. The patient was injected with 13.5 mCi of technetium 99m Cardiolite and subsequently rest SPECT Cardiolite nuclear imaging was obtained in the horizontal long, vertical long, and short axis views. Post-exercise, the patient was injected with 43.1 mCi of technetium 99m Cardiolite and subsequently stress SPECT Cardiolite nuclear imaging was obtained in the horizontal long, vertical long, and short axis views. A gated Cardiolite study at peak stress was obtained. Rest and stress SPECT Cardiolite nuclear imaging status post realignment, normalization, and attenuation correction, demonstrates mild reversible perfusion defect of the apex and septum. There is end systolic thickening and brightening. The gated Cardiolite study demonstrates myocardial thickening and inward wall motion. The reported LVEF is 77%. Impression: 1. Technically adequate (percent predicted maximal heart rate greater than 85%) exercise tolerance test 2. Peak exercise ECG with no ischemic changes 3. Frequent PVCs noted with exercise and in recovery 4. Rest and stress SPECT Cardiolite nuclear imaging demonstrate mildly reversible perfusion defect of the apex and septum, suggestive of ischemia. 5. The gated Cardiolite study reports an LVEF of 77%. This note was generated with [employer] software. It may contain incorrect words, spelling, and punctuation that were not noted in checking the note before signing.
== END | disposition home or self-care (01) ==
LOC: CVS 06:09
PROVIDERS: PCP Internal Medicine; Referring Provider Physician Assistant; Visit Provider Physician Assistant
DX: R07.89 Other chest pain (principal)
CPT/HCPCS: 78452; 93017; A9500; A4216

== ENCOUNTER 2024-08-29 19:22 | Emergency (ER) | payer BC, SELFPAY ==
[2024-08-29 19:22] VITALS: BP 129/80; PULSE 77; RESP 16; TEMP 36.4; O2SAT 98; BMI 33.3
[2024-08-29 20:46] LABS: Mucous, Urine 0 SEEN /hpf (<or=2+); Red Blood Cells-Urine 0 SEEN /hpf (0-5)
[2024-08-29 20:48] LABS: Absolute Lymphocyte Count 4.33 X10^3/uL (0.83-4.51); Absolute Neutrophil Count 5.5 X10^3/uL (2.0-7.7); Basophil# 0.07 X10^3/uL; Basophil% 0.6 % (0-1); Eosinophils% 1.8 % (0-5); Hematocrit 39.7 % (37-47); Hemoglobin 13.1 g/dL (12.0-15.0); Lymphocyte # 4.33 X10^3/ul (0.83-4.51); Lymphocyte % 38.9 % (19-41); Mean Corpuscular Hgb 28.4 pg (27.0-32.0); Mean Corpuscular Volume 86.1 fL (81-99); Mean Platelet Vol. 12.2 fl (6.2-12.0); Monocyte# 0.98 X10^3/uL; Monocyte% 8.8 % (0-10); NRBC Flagged by Analyzer 0 % (0-5); Neutrophil # 5.52 X10^3/uL (2.7-7.7); Neutrophil % 49.5 % (47-70); Platelet Count 238 K/mm3 (150-450); RBC Distribution Width CV 13.4 % (11.6-14.6); Red Blood Count 4.61 M/mm3 (4.2-5.4); White Blood Count 11.1 K/mm3 (4.4-11.0)
[2024-08-29 20:54] LABS: Color, Urine Yellow (Yellow); Glucose, Dipstick Normal (Normal); Ketone-Dipstick Negative (Negative); Leukocyte Esterase-Dipstick 100 /ul (Negative); Nitrite-Dipstick Negative (Negative); Occult Blood-Urine Negative /ul (Negative); Protein-Dipstick 15 mg/dl (Negative); Specific Gravity, Urine 1.025 (1.002-1.030); Urine Bilirubin Dipstick Negative (Negative); Urine Clarity Clear (Clear); Urine Urobilinogen 1 mg/dl (Normal)
[2024-08-29 21:02] LABS: Bacteria RARE /hpf (None Seen); Squamous Epithelial Cells - UA 0-5 SEEN /hpf (5-10); White Blood Cells 5-10 SEEN /hpf (0-5)
[2024-08-29 21:03] LABS: Amorphous Sediment R
[2024-08-29 21:07] LABS: ALB/GLOB Ratio 0.9 RATIO (0.9-2.4); AST(SGOT) 11 U/L (15-37); Alanine Aminotransfer ALT/SGPT 15 U/L (13-56); Albumin, Serum 3.7 g/dL (3.2-5.0); Alkaline Phosphatase 83 U/L (45-117); Anion Gap 7 (5-15); BUN 8 mg/dL (7-18); BUN/Creat Ratio 10.7 RATIO (10-20); Bilirubin, Direct < 0.05 mg/dL (0.00-0.30); Calcium,Total 9.7 mg/dL (8.5-10.1); Chloride 104 mmol/L (98-107); Creatinine, Serum 0.75 mg/dL (0.55-1.02); EST Glomerular Filtration Rate 86 mL/min (>60); Est Glom Filt Rate - Afr Amer 104 mL/min (>60); Estimated Creatinine Clearance 105.67 ml/min; Globulin 4.1 g/dL (2.2-4.2); Glucose 119 mg/dL (74-106); Lipase 27 U/L (13-75); Potassium 3.8 mmol/L (3.5-5.1); Protein, Total 7.8 g/dL (6.4-8.2); Sodium Level 140 mmol/L (136-145)
[2024-08-29 21:22] VITALS: BP 132/82; PULSE 86; RESP 18; O2SAT 100
--- NOTE | 2024-08-29 21:30 | EX.ED.DYSGE1 ---
HPI History of Present Illness Chief Complaint: Abd Pain Detail of Chief Complaint: Patient has pain in the right flank area that wraps around anteriorly. Informant: patient Onset/Context/Timing Onset: Month(s) (Off-and-on for approximately 1 month) Context: Sudden Onset Timing: Intermittent Quality: Pain Location: Right flank radiating anteriorly Current Severity: Mild Maximum Severity: Moderate Worsened by: Possibly fried/greasy food Relieved by: Nothing Associated Symptoms Associated Symptoms: Nausea Narrative Narrative: Patient is a 54-year-old woman who presents with flank pain that radiates anteriorly. She is concerned this is her gallbladder. At approximately 1930 patient had serial and fried eggs for dinner. There is no known history of biliary disease. There is no family's. She denies history of renal or ureterolithiasis. She denies dysuria, frequency, urgency or hematuria. She denies cough, shortness of breath or sputum production. She denies history of VTE or any risk factors. There is no history of direct or indirect trauma. She has not noted a rash. Prior similar symptoms: No Recent Illness/Hospitalization: No [facility] Medical History Wears contact lenses Wears glasses History of IBS Non-smoker Shortness of breath on exertion Hypertension Sleep apnea Fatigue Throat tightness Difficulty swallowing Anxiety and depression Heart murmur Hyperlipidemia High blood pressure Frequent headaches Anemia Home Medications ?Medication ?Instructions ?Recorded ?Last Taken ?Type levalbuterol tartrate 45 2 inh inhalation Q6H #15 grams 01/06/22 Unknown Rx mcg/actuation aerosol inhaler cholecalciferol (vitamin D3) 25 25 mcg PO DAILY 09/01/22 Unknown History mcg (1,000 unit) capsule SEMAGLUTIDE subcut 05/25/24 Unknown History lisinopril 20 mg tablet See Rx Instructions .Route 05/25/24 Unknown Rx .COMPLEX #30 tabs semaglutide 0.25 mg or 0.5 mg (2 0.5 mg (0.736 mL) subcut QWEEK #3 06/22/24 Unknown Rx mg/3 mL) subcutaneous pen injector mL (Ozempic) rosuvastatin 5 mg tablet 5 mg PO DAILY #30 tabs 06/29/24 Unknown Rx cholecalciferol (vitamin D3) 1,250 1,250 mcg PO QWEEK #12 caps 07/14/24 Unknown Rx mcg (50,000 unit) capsule escitalopram oxalate 5 mg tablet 5 mg PO DAILY #90 tabs 08/08/24 Unknown Rx Allergy/AdvReac Type Severity Reaction Status Date / Time No Known Allergies Allergy Verified 08/29/24 19:23 Family History Mother Anxiety Depression Breast cancer Father Cancer Melanoma Brother Cancer Hodgkin lymphoma Grandmother Breast cancer Surgical History Hx of tubal ligation History of colonoscopy History of shoulder surgery History of excision of pilonidal cyst History of tonsillectomy and adenoidectomy History of loop electrosurgical excision procedure (LEEP) Social History household members: spouse current occupational status: employed 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 Smoking Status: Never smoker Electronic Cigarette Use: not used second hand exposure: No alcohol intake: current alcohol intake frequency: a few times a month substance use type: does not use caffeine: Yes (1 cup daily) Type: coffee what type of physical activity do you participate in: weight training frequency: 3-4 times per week do you feel safe at home: Yes ROS ROS ED Constitutional Constitutional ED: Denies chills, fever(s), subjective, sweats or weight loss Eyes Eyes: Denies blurry vision or change in vision ENT ENT ED: Denies ear pain, rhinorrhea or sore throat Cardiovascular Cardiovascular: Denies chest pain, palpitations or racing heartbeat Respiratory/Chest Respiratory/Chest: Denies cough, dyspnea or dyspnea on exertion Gastrointestinal Gastrointestinal: Reports abdominal pain; Denies constipation, diarrhea, melena or vomiting Genitourinary Genitourinary ED: Denies dysuria, hematuria or urinary frequency Musculoskeletal Musculoskeletal: Reports back pain; Denies arthralgias, myalgias or neck pain Hematologic/Lymphatic Hematologic/Lymphatic: Reports systems reviewed and no addt'l complaints, except as documented EXAM Physical Exam Const Vital Signs: 08/29/24 19:22 Temperature 97.6 F L Temperature Source Temporal Pulse Rate 77 Respiratory Rate 16 Blood Pressure 129/80 H Blood Pressure Mean 96 Pulse Ox 98 Positive well nourished and well developed Constitutional Narrative: Patient grimaces with movement. Certain positions increase her pain as well. General Appearance ED: well developed and NAD; Negative for pallor HEENT Reports moist mucous membranes HEENT Narrative: Atraumatic and normocephalic. Ears normal. Nares patent. Mucosas moist. Eyes PERRL and EOMs intact bilaterally General Eye ED: Negative for pale conjunctiva or scleral icterus Neck no lymphadenopathy, supple and no JVD Chest Wall palpation of chest normal Resp normal respiratory effort and clear to auscultation bilaterally Cardio regular rate, regular rhythm, S1 normal heart sound, S2 normal heart sound and no murmurs GI normal to inspection, nondistended, normoactive bowel sounds, non-distended and no masses; Negative for non-tender or hepatosplenomegaly GI Narrative: There is tenderness in the epigastric area and she has a clinical Uribe sign. Auscultation: hypoactive bowel sounds Palpation: soft and tender epigastric and Uribe's sign; Negative for guarding, splenomegaly, mass or rebound tenderness present Back/Spine no CVA tenderness Cervical Spine: Negative for cervical spine tenderness Thoracic Spine / Upper Back: Negative for thoracic spinal tenderness Lumbar Spine / Lower Back: Negative for lumbar spinal tenderness Extremity normal to inspection General Extremety ED: Negative for edema or tenderness General Extremity: Negative for edema Neuro oriented x3 and CN's II-XII intact bilaterally Sensorium / Orientation: alert Motor Exam: strength 5/5 throughout Psych mental status grossly normal Skin no rashes or lesions noted, no wounds and skin turgor normal General Skin Exam: elasticity normal; Negative for jaundice or pallor MDM MDM MDM Narrative Medical decision making narrative: Differential diagnosis would be musculoskeletal pain, ureterolithiasis, doubt pyelonephritis is since she does not have CVA tenderness or urinary symptoms. There is disease, pain of unknown etiology most likely musculoskeletal extensors a positional component however with her clinical Uribe sign and intolerance to greasy food this may represent biliary disease. Patient was told the soonest a ultrasound could be obtained would be 1:30 AM/2:30 AM. If needed she could be kept overnight if enzymes were elevated otherwise outpatient ultrasound would be appropriate. Lab Data Attestation: I reviewed the patient's lab results. Lab results narrative: White count is slightly elevated 11.1 thousand with no shift. Comprehensive metabolic panel is normal. Urinalysis is unremarkable. She has 5-10 WBCs. More importantly she has no urinary symptoms. There is also rare bacteria. Labs: Laboratory Results - last 24 hr 08/29/24 08/29/24 20:40 20:42 WBC 11.1 H RBC 4.61 Hgb 13.1 Hct 39.7 MCV 86.1 MCH 28.4 MCHC 33.0 RDW Std Deviation 42.0 RDW Coeff of Ana 13.4 Plt Count 238 MPV 12.2 H Immature Gran % (Auto) 0.400 Neut % (Auto) 49.5 Lymph % (Auto) 38.9 [place] % (Auto) 8.8 Eos % (Auto) 1.8 Baso % (Auto) 0.6 Absolute Neuts (auto) 5.5 Absolute Lymphs (auto) 4.33 Nucleated RBC % 0 Sodium 140 Potassium 3.8 Chloride 104 Carbon Dioxide 29.0 Anion Gap 7 BUN 8 Creatinine 0.75 Estim Creat Clear Calc 105.67 Est GFR (MDRD) Af Amer 104 Est GFR (MDRD) Non-Af 86 BUN/Creatinine Ratio 10.7 Glucose 119 H Calcium 9.7 Total Bilirubin 0.20 Direct Bilirubin < 0.05 AST 11 L ALT 15 Alkaline Phosphatase 83 Total Protein 7.8 Albumin 3.7 Globulin 4.1 Albumin/Globulin Ratio 0.9 Lipase 27 Urine Color Yellow Urine Clarity Clear Urine pH 6.0 Ur Specific [place] 1.025 Urine Protein 15 H Urine Glucose (UA) Normal Urine Ketones Negative Urine Occult Blood Negative Urine Nitrite Negative Urine Bilirubin Negative Urine Urobilinogen 1 H Ur Leukocyte Esterase 100 H Urine RBC 0 SEEN Urine WBC 5-10 SEEN Ur Squamous Epith Cells 0-5 SEEN Amorphous Sediment R Urine Bacteria RARE Urine Mucus 0 SEEN Treatment and Re-Evaluation :: Patient was reexamined at 2136. She still has right upper quadrant pain. Will order gallbladder ultrasound as an outpatient since patient ate at 1930. Discharge Plan Triage Chief Complaint: Abd Pain Other Complaint: Back ED Provider: Syed,Cosmo Dx/Rx/DC Orders Clinical Impression: Intermittent right upper quadrant abdominal pain, Essential hypertension, Hyperlipidemia, Acute right flank pain, Adult BMI 33.0-33.9 kg/sq m Instructions: ED Abdominal Pain Gallstone Poss Prescriptions: No Action cholecalciferol (vitamin D3) 25 mcg (1,000 unit) capsule 25 mcg PO DAILY SEMAGLUTIDE subcut lisinopril 20 mg tablet See Rx Instructions .ROUTE .COMPLEX Qty: 30 0RF Dose Instruction: TAKE 1 TABLET BY MOUTH EVERY DAY Rx Instructions: TAKE 1 TABLET BY MOUTH EVERY DAY levalbuterol tartrate 45 mcg/actuation HFA aerosol inhaler 2 inh inhalation Q6H Qty: 15 6RF Ozempic 0.25 mg or 0.5 mg (2 mg/3 mL) pen injector 0.5 mg subcut QWEEK Qty: 3 0RF Rx Instructions: for 4 weeks rosuvastatin 5 mg tablet 5 mg PO DAILY Qty: 30 2RF cholecalciferol (vitamin D3) 1,250 mcg (50,000 unit) capsule 1,250 mcg PO QWEEK Qty: 12 1RF escitalopram oxalate 5 mg tablet 5 mg PO DAILY Qty: 90 0RF Other Ambulatory Orders: Gallbladder (Routine) Facility: [facility] - Location: [facility] Ordered By: Dr. Cosmo Syed Primary Care Provider: Leah Salvador Referrals: Leah Salvador MD [Primary Care Provider] - 3-5 Days if not improving Buddy Christiansen MD [Med Staff - Active Staff] - As Needed Activity Restrictions/Additional Instructions: If your gallbladder ultrasound reveals that you have gallbladder disease you should contact Dr. Christiansen Print Language: Kittitian Disposition Disposition: Home, Self Care
== END 2024-08-29 21:52 | disposition home or self-care (01) ==
PROVIDERS: Emergency Provider Emergency Medicine; PCP Internal Medicine; Visit Provider Emergency Medicine
DX: R10.11 Right upper quadrant pain (principal); I10 Essential (primary) hypertension; E78.5 Hyperlipidemia, unspecified; Z79.899 Other long term (current) drug therapy
CPT/HCPCS: 80048; 80053; 80076; 81001; 83690; 85025; 99285; A4216

== ENCOUNTER → 2024-08-30 | Outpatient (CLI) | payer BC, SELFPAY ==
--- NOTE | 2024-08-30 09:54 | US_ITS ---
STUDY: ABDOMINAL ULTRASOUND - RIGHT UPPER QUADRANT REASON FOR VISIT: Female, 54 years old Right upper quadrant pain, intolerance to greasy f -- Clinical Uribe sign TECHNIQUE: Ultrasound evaluation of the right upper quadrant was performed with real-time and static myers-scale imaging. TECHNICAL QUALITY: Adequate. COMPARISON: None. FINDINGS: Liver: The liver is mildly enlarged and measures 18.3 cm. There is increased echogenicity consistent with fatty infiltration. The bile ducts are within normal limits. There is hepatic color flow. The direction of portal flow is hepatopetal. There is no demonstrated mass lesion. Gallbladder: Normal distended gallbladder. The gallbladder wall measures 2.1 mm. There is a negative sonographic Uribe''s sign. There is no pericholecystic fluid. There are no gallstones. Common Bile Duct (C.B.D.): The common bile duct measures 3.5 mm. Pancreas: Normal size of the head, body and tail of the pancreas. There is increased echogenicity of the pancreas. There is no demonstrated pancreatic mass or cyst. Right Kidney: Normal size of the right kidney. The right kidney measures 11.8 cm x 5.3 cm x 4.3 cm. Normal renal cortex. The right cortex measures 1.1 cm. There is no demonstrated renal mass or cyst. There is no right hydronephrosis. US/Gallbladder IMPRESSION: Mild hepatomegaly and fatty infiltration of the liver. Electronically Signed: Wilberto Sommer MD at 12:56 EDT ,
== END | disposition home or self-care (01) ==
LOC: US 09:51
PROVIDERS: PCP Internal Medicine; Referring Provider Emergency Medicine; Visit Provider Emergency Medicine
DX: R10.11 Right upper quadrant pain (principal)
CPT/HCPCS: 76705

== ENCOUNTER → 2024-11-01 | Outpatient (CLI) | payer BC, SELFPAY ==
[2024-11-01 17:23] LABS: Hemoglobin A1c 5.6 % (3.8-5.6)
== END | disposition home or self-care (01) ==
LOC: BIMLAB 13:57
PROVIDERS: PCP Internal Medicine; Referring Provider Internal Medicine; Visit Provider Internal Medicine
DX: E11.9 Type 2 diabetes mellitus without complications (principal)
CPT/HCPCS: 36415; 83036

== ENCOUNTER → 2024-11-28 | Outpatient (CLI) | payer BC, SELFPAY ==
--- NOTE | 2024-11-28 14:33 | RAD_ITS ---
HISTORY: Cath pre op. TECHNIQUE: XR Chest 2 Views. COMPARISON: 05/10/2020. FINDINGS: CARDIOMEDIASTINAL BORDERS: Cardiac silhouette within normal limits in size. Mediastinal contour unremarkable. LUNGS: Radiographically clear. PLEURA: No pleural effusion or pneumothorax seen. OSSEOUS STRUCTURES: Unremarkable. RAD/Chest PA and Lateral IMPRESSION: No acute cardiopulmonary process identified. Electronically Signed: Ellen Garrido MD at 9:23 EST ,
[2024-11-28 15:04] LABS: Absolute Lymphocyte Count 2.29 X10^3/uL (0.83-4.51); Absolute Neutrophil Count 5.3 X10^3/uL (2.0-7.7); Basophil# 0.06 X10^3/uL; Basophil% 0.7 % (0-1); Eosinophil# 0.14 X10^3/uL; Eosinophils% 1.6 % (0-5); Hematocrit 40.3 % (37-47); Hemoglobin 13.5 g/dL (12.0-15.0); Lymphocyte # 2.29 X10^3/ul (0.83-4.51); Lymphocyte % 26.8 % (19-41); Mean Corp Hgb Conc 33.5 g/dL (32-36); Mean Corpuscular Hgb 28.5 pg (27.0-32.0); Mean Platelet Vol. 12.8 fl (6.2-12.0); Monocyte# 0.67 X10^3/uL; Monocyte% 7.8 % (0-10); NRBC Flagged by Analyzer 0 % (0-5); Neutrophil # 5.34 X10^3/uL (2.7-7.7); Neutrophil % 62.6 % (47-70); Platelet Count 226 K/mm3 (150-450); RBC Distribution Width CV 12.8 % (11.6-14.6); RBC Distribution Width SD 39.4 fl (35.1-43.9); Red Blood Count 4.74 M/mm3 (4.2-5.4); White Blood Count 8.5 K/mm3 (4.4-11.0)
[2024-11-28 16:15] LABS: Anion Gap 5 (5-15); BUN 10 mg/dL (7-18); BUN/Creat Ratio 11.8 RATIO (10-20); Calcium,Total 9.3 mg/dL (8.5-10.1); Chloride 105 mmol/L (98-107); Creatinine, Serum 0.85 mg/dL (0.55-1.02); EST Glomerular Filtration Rate 74 mL/min (>60); Est Glom Filt Rate - Afr Amer 90 mL/min (>60); Glucose 123 mg/dL (74-106); Potassium 3.9 mmol/L (3.5-5.1); Sodium Level 140 mmol/L (136-145)
== END | disposition home or self-care (01) ==
LOC: LAB 13:58
PROVIDERS: PCP Internal Medicine; Referring Provider Internal Medicine Cardiovascular Disease; Visit Provider Internal Medicine Cardiovascular Disease
DX: R07.9 Chest pain, unspecified (principal); R94.39 Abnormal result of other cardiovascular function study
CPT/HCPCS: 36415; 71046; 80048; 85025; 85610

== ENCOUNTER 2024-12-06 06:47 | Day surgery (SDC) | payer BC, SELFPAY ==
[2024-12-05 08:35] VITALS: BMI 33.7
--- NOTE | 2024-12-06 08:25 | CL.D_ITS ---
Patient Name: COSTA ANDERSON Study Date: 12/06/2024 Performing: Carlos Muniz MD Ht: 68 inches 172.72 cm : 1970 Wt: 222.01 lbs 100.7 kg Age: 54 Gender: female BSA: 2.14 PROCEDURE(S) PERFORMED [id number])LHC/COR/LV CLINICAL PROFILE AND INDICATIONS Indications: Suspected CAD Heart Failure: None Stress/Imaging Date: 08/10/24Stress Test with SPECT MPI: Positive Low Risk CAD Presentations: Symptom unlikely to be ischemic. CONCLUSIONS Normal coronary arteries Normal LV size, wall motion,and systolic function RECOMMENDATIONS Medical therapy DESCRIPTION OF PROCEDURE The patient arrived to the procedure lab. The risks and benefits of the procedure as well as a full description of our services here and current unavailability of surgical backup were fully explained to the patient and/or their significant other prior to the catheterization. The Timeout was completed, verifying the correct patient and procedure. The patient's procedural site was prepped and draped in the usual fashion. Local anesthetic was given subcutaneously to right radial region with Lidocaine 2%. Using a modified Seldinger technique, arterial access was obtained via the right radial artery, a 6Fr sheath was inserted. Left Coronary Artery selective angiography was performed in multiple views using a 5 Fr. 4.0 [place] catheter. Right Coronary Artery selective angiography was then performed in multiple views using a 5 Fr. 4.0 [place] catheter. Left Ventriculography was performed in MAYES projection using a 5 Fr. [place] catheter. LV to AO pullback pressures were then recorded.The arterial sheath was pulled and a TR Band was applied for hemostasis w/ 12ml air CORONARY ANGIOGRAPHY DOMINANCE: Right Dominant LEFT HEART ASSESSMENT Left Ventricular Ejection Fraction: by LV Gram 60 % Normal LV wall motion Normal Left Ventricular systolic function LEFT MAIN: Angiographically normal LEFT ANTERIOR DESCENDING ARTERY: Angiographically normal CIRCUMFLEX ARTERY: Angiographically normal RAMUS: Angiographically normal RIGHT CORONARY ARTERY: Angiographically normal COMPLICATIONS No Complications PROCEDURE MEDICATIONS Versed 1 mg IV Fentanyl 50 mcg IV Versed 1 mg IV Oxygen: 2 L/min via nasal cannula Aspirin (325mg) 1 Tabs PO @ 12/06/2024 07:15:16 Heparin given IA 12/06/2024 08:05:25 Verapamil 2.5mg, Ntg 100mcgs, 3000 units of Heparin given IA 12/06/2024 08:05:25 SUMMARY OF HEMODYNAMIC DATA Time AIR REST ECG 07:06:44 AO 135/89 (110) SA 08:07:12 LV 131/1, 7 08:13:12 LV 133/2, 12 08:13:20 LV 131/3, 11 08:13:44 LV 135/4, 15 08:13:52 LVp 132/3, 14 08:13:55 AOp 147/83 (110) 08:14:03 Signed By Carlos Muniz MD On 12/06/2024 08:24:16 Carlos Muniz MD
== END 2024-12-06 10:35 | disposition home or self-care (01) ==
PROVIDERS: PCP Internal Medicine; Referring Provider Internal Medicine Cardiovascular Disease; Visit Provider Internal Medicine Cardiovascular Disease
DX: R07.9 Chest pain, unspecified (principal); R94.39 Abnormal result of other cardiovascular function study
CPT/HCPCS: 93458; 99152; Q9967; C1769; C1894

== ENCOUNTER → 2025-04-06 | Outpatient (CLI) | payer BC, SELFPAY ==
[2025-04-06 12:32] LABS: Absolute Lymphocyte Count 2.81 X10^3/uL (0.83-4.51); Absolute Neutrophil Count 3.7 X10^3/uL (2.0-7.7); Basophil# 0.05 X10^3/uL; Basophil% 0.7 % (0-1); Eosinophil# 0.11 X10^3/uL; Eosinophils% 1.5 % (0-5); Hematocrit 42.7 % (37-47); Hemoglobin 14.2 g/dL (12.0-15.0); Lymphocyte # 2.81 X10^3/ul (0.83-4.51); Lymphocyte % 39.2 % (19-41); Mean Corp Hgb Conc 33.3 g/dL (32-36); Mean Corpuscular Hgb 28.6 pg (27.0-32.0); Mean Corpuscular Volume 85.9 fL (81-99); Mean Platelet Vol. 12.6 fl (6.2-12.0); Monocyte# 0.49 X10^3/uL; Monocyte% 6.8 % (0-10); NRBC Flagged by Analyzer 0 % (0-5); Neutrophil # 3.68 X10^3/uL (2.7-7.7); Neutrophil % 51.5 % (47-70); Platelet Count 266 K/mm3 (150-450); RBC Distribution Width CV 12.9 % (11.6-14.6); RBC Distribution Width SD 40.2 fl (35.1-43.9); Red Blood Count 4.97 M/mm3 (4.2-5.4); White Blood Count 7.2 K/mm3 (4.4-11.0)
[2025-04-06 13:08] LABS: ALB/GLOB Ratio 1.2 RATIO (0.9-2.4); AST(SGOT) 17 U/L (<=31); Alanine Aminotransfer ALT/SGPT 12 U/L (<=34); Albumin, Serum 4.3 g/dL (3.5-5.0); Alkaline Phosphatase 85 U/L (35-104); Amylase 68 U/L (28-100); Anion Gap 11 (5-15); BUN 8 mg/dL (4-19); BUN/Creat Ratio 14.3 RATIO (10-20); Calcium,Total 9.8 mg/dL (7.6-11.0); Carbon Dioxide 25.4 mmol/L (21.0-32.0); Chloride 101 mmol/L (98-108); Creatinine, Serum 0.58 mg/dL (0.70-1.20); EST Glomerular Filtration Rate 107 (>60); Globulin 3.7 g/dL (2.2-4.2); Glucose 88 mg/dL (70-99); Lipase 23 U/L (13-75); Potassium 4.7 mmol/L (3.3-5.1); Sodium Level 137 mmol/L (133-145); Total Bilirubin 0.34 mg/dL (0.00-1.30)
== END | disposition home or self-care (01) ==
LOC: BIMLAB 11:04
PROVIDERS: PCP Internal Medicine; Referring Provider Physician Assistant; Visit Provider Physician Assistant
DX: R10.11 Right upper quadrant pain (principal)
CPT/HCPCS: 36415; 80053; 82150; 83690; 85025

== ENCOUNTER → 2025-05-11 | Outpatient (CLI) | payer BC, SELFPAY ==
--- NOTE | 2025-05-11 09:35 | NM_ITS ---
PROCEDURE: HEPATOBILLIARY IMG W/PHARM INT 05/11/2025 REASON FOR EXAM: RUQ PAIN TECHNIQUE: Intravenous Choletec with planar imaging of the abdomen. 2 mcg Kinevac intravenously approximately 60 minutes after the radiopharmaceutical with additional anterior imaging and a region of interest drawn around the gallbladder to calculate a time-activity curve. RADIOPHARMACEUTICAL: Mebrofenin DOSE 5.6mCi COMPARISON: Prior ultrasound dated August 30, 2024. FINDINGS: There is good uptake of the radiopharmaceutical by the liver. Normal gallbladder visualization with the gallbladder identified by 30 minutes. Gallbladder Ejection Fraction: 15 % (Normal is >35%) NM/Hepatobilliary Img w/Pharm Int IMPRESSION: Abnormal gallbladder ejection fraction. Reading Location: [place] [id number]
--- OUTSIDE RECORDS SUMMARY | 2025-05-11 10:12 | XMS RPT_ITS | CCD ---
Author Organization [facility] CliniSyut Care Team Providers Care Rn Observation Name Role Phone Dr. Landry Bro Primary Care Provider [phone] Dr. Landry Bro Referring Provider [phone] Dr. Nick Staples Attending Provider Calli ENVIRONMENTAL TECH, CÉSAR Roldan Attending Provider [phone] Dr. Landry Bro Primary Care Provider [phone] Dr. Landry Bro Referring Provider [phone] Dr. Leah Salvador Attending Provider [phone] Dr. Leah Salvador Primary Care Provider Talib Wetzel Attending Provider Unavailable Dr. Carlos Muniz Attending Provider [phone] Dr. Leah Salvador Referring Provider [phone] NELSON Louis Attending Provider Unavail NELSON Suarez Attending Provider [phone] Dr. Leah Salvador Primary Care Provider Dr. Leah Salvador Attending Provider [phone] Dr. Leah Salvador Referring Provider [phone] Dr. Leah Salvador Primary Care Provider Dr. Leah Salvador Referring Provider [phone] NELSON Morales Attending Provider [phone] Dr. Leah Salvador MD Primary Care Provider [phone] Friendship MD, Dr. Leah Attending Provider Madeleine ANGELO Dr. Leah Referring Provider Dony Morales Attending Provider [phone] Dony Morales Referring Provider [phone] Madeleine, Leah Referring Unavailable Friendship, Leah Primary Care Unavailable Madeleine, Leah Attending Unavailable Friendship, Leah Primary Care Unavailable Madeleine, Leah Referring Unavailable Madeleine, Leah Attending Unavailable Friendship, Leah Primary Care Unavailable Wayt, Dony Referring Unavailable Wayt, Dony Attending Unavailable Madeleine, Leah Referring Unavailable Madeleine, Leah Primary Care Unavailable Madeleine, Leah Attending Unavailable Friendship, Leah Referring Unavailable Friendship, Leah Primary Care Unavailable Madeleine, Leah Attending Unavailable Madeleine, Leah Primary Care Unavailable Shyam Valencia Referring Unavailable Shyam Valencia Attending Unavailable Madeleine, Leah Primary Care Unavailable Wayt, Dony Referring Unavailable Wayt, Dony Attending Unavailable Friendship, Leah Primary Care Unavailable Wayt, Dony Referring Unavailable Wayt, Dony Attending Unavailable Friendship, Leah Referring Unavailable Madeleine, Leah Primary Care Unavailable Madeleine, Leah Attending Unavailable Madeleine, Leah Primary Care Unavailable Friendship, Leah Referring Unavailable Wayt, Dony Attending Unavailable Madeleine, Leah Primary Care Unavailable Cristy, Coleman Referring Unavailable Cristy, Coleman Attending Unavailable Madeleine, Leah Primary Care Unavailable Wayt, Dony Referring Unavailable WaytJoaquinew Attending Unavailable Friendship, Leah Primary Care Unavailable Friendship, Leah Referring Unavailable Shyam Valencia Attending Unavailable Madeleine, Leah Referring Unavailable Madeleine, Leah Attending Unavailable Friendship, Leah Primary Care Unavailable Friendship, Leah Referring Unavailable Wayt, Dony Attending Unavailable Madeleine, Leah Primary Care Unavailable Madeleine, Leah Primary Care Unavailable Friendship, Leah Referring Unavailable Friendship, Leah Attending Unavailable Kathy Carter Attending Unavailable Friendship, Leah Primary Care Unavailable Wayt, Dony Referring Unavailable Wayt, Dony Consulting Unavailable Cosmo Syed Attending Unavailable Leah Salvador Primary Care Unavailable Jesus Syedo Referring Unavailable Jesus Syedo Attending Unavailable Leah Salvador Primary Care Unavailable Leah Salvador Primary Care Unavailable Leah Salvador Referring Unavailable Leah Salvador Attending Unavailable Medications Current Medications Medication Drug Class(es) Dates Sig (Normalized) Sig (Original) famotidine 20 mg oral tablet (11 sources) Histamine-2 Receptor Antagonist Start: 04-06-2025 take 1 tablet by mouth twice daily Famotidine 20 mg tablet Active 20 mg PO TWICE A DAY 30 April 06, 2025 12:00am Start: 04-04-2020 End: 05-10-2020 take 1 tablet by mouth twice daily Famotidine 20 mg tablet Discontinued 20 mg PO TWICE A DAY 60 April 04, 2020 12:00am May 10, 2020 1:15pm Semaglutide (10 sources) Start: 06-22-2024 Semaglutide (O zempic) 0.25 mg or 0.5 mg (2 mg/3 mL) pen injector Active 0.5 mg SC EVERY WEEK 3 June 22, 2024 4:10pm for 4 weeks Start: 2024 End: 06-22-2024 Semaglutide (Ozempic) 0.25 m g or 0.5 mg (2 mg/3 mL) pen injector Discontinued 0.25 mg SC EVERY WEEK 3 2024 10:02am June 22, 2024 4:11pm for 4 weeks Start: 08-04-2023 End: 04-20-2024 Semaglutide (Ozempic) 0.25 m g or 0.5 mg (2 mg/3 mL) pen injector Discontinued 0.25 mg SC EVERY WEEK 3 August 04, 2023 12:00am April 20, 2024 7:28am for 4 weeks Start: 08-04-2023 Semaglutide (O zempic) 0.25 mg or 0.5 mg (2 mg/3 mL) pen injector Active 0.25 MG SC EVERY WEEK 3 August 04, 2023 12:00am for 4 weeks Completed/Discontinued Medications Medication Drug Class(es) Dates Sig (Normalized) Sig (Original) 200 actuat albuterol 0.09 mg/actuat dry powder inhaler (18 sources) beta2-Adrenergic Agonist Start: 01-01-2022 End: 01-06-2022 take 90 ug by inhalation every four hours as needed Albuterol Sulfate (Proair Respiclick) 90 mcg/actuation aerosol powdr breath activated Discontinued 2 NMA INHALATION Q4H as needed for shortness of breath or wheezing January 01, 2022 1:00am January 06, 2022 10:09am administer with spacer Start: 11-05-2021 End: 01-01-2022 take 1 puff(s) by inhalation every four hours Albuterol Sulfate (Ventolin Hfa) 90 mcg/actuation HFA aerosol inhaler Discontinued 2 PUFF INHALATION Q4H November 05, 2021 5:29pm January 01, 2022 1:49pm Start: 11-05-2021 End: 01-01-2022 Albuterol Sulfate (Ventolin Hfa) 90 mcg/actuation HFA aerosol inhaler Discontinued 2 NMA INHALATION Q4H as needed for shortness of breath or wheezing November 05, 2021 1:00am January 01, 2022 1:49pm Start: 11-05-2021 End: 01-01-2022 take 1 puff(s) by inhalation every four hours Albuterol Sulfate (Ventolin Hfa) 90 mcg/actuation HFA aerosol inhaler Discontinued 2 PUFF INHALATION Q4H November 05, 2021 1:00am January 01, 2022 1:49pm aluminum chloride 200 mg/ml topical solution (9 sources) Start: 05-01-2021 End: 10-14-2022 Aluminum Chloride 20 % solut ion Discontinued 1 NMA TOPICAL AT BEDTIME May 01, 2021 12:00am October 14, 2022 4:02pm Start: 05-01-2021 End: 10-14-2022 Aluminum Chloride Discontinu ed 1 APPLIC TOPICAL AT BEDTIME May 01, 2021 12:00am October 14, 2022 4:02pm atorvastatin 10 mg oral tablet (7 sources) HMG-CoA Reductase Inhibitor Start: 08-31-2023 End: 04-20-2024 take 1 tablet by mouth at bedtime Atorvastatin (Lipitor) 10 mg tablet Discontinued 10 mg PO AT BEDTIME November 02, 2023 4:15pm April 20, 2024 7:27am Budesonide-Formoter ol (20 sources) Corticosteroid, beta2-Adrenergic Agonist Start: 09-12-2022 End: 2024 Budesonide-Formoter ol (Symbicort) 160-4.5 mcg/actuation HFA aerosol inhaler Discontinued 2 NMA INHALATION TWICE A DAY September 12, 2022 2:21pm 2024 9:29am administer with spacer, rinse mouth after each use Start: 09-12-2022 take 1 puff(s) by [facility] twice daily Budesonide-Formoterol (Symbicort) 160-4.5 mcg/actuation HFA aerosol inhaler Active 2 PUFF INHALATION TWICE A DAY September 12, 2022 2:21pm administer with spacer, rinse mouth after each use Start: 09-12-2022 take 1 puff(s) by [facility] twice daily Budesonide-Formoterol (Symbicort) 160-4.5 mcg/actuation HFA aerosol inhaler Active 2 PUFF INHALATION TWICE A DAY September 12, 2022 1:21pm administer with spacer, rinse mouth after each use Start: 01-09-2022 End: 09-12-2022 Budesonide-Formoterol (Symbi joni) 160-4.5 mcg/actuation HFA aerosol inhaler Discontinued 2 NMA INHALATION TWICE A DAY 1 January 09, 2022 7:55am September 12, 2022 2:22pm administer with spacer, rinse mouth after each use Start: 01-09-2022 End: 09-12-2022 take 1 puff(s) by mouth twice daily Budesonide-Formoterol (Symbicort) 160-4.5 mcg/actuation HFA aerosol inhaler Discontinued 2 PUFF INHALATION TWICE A DAY 1 January 09, 2022 7:55am September 12, 2022 2:22pm administer with spacer, rinse mouth after each use Start: 01-09-2022 End: 09-12-2022 take 1 puff(s) by mouth twice daily Budesonide-Formoterol (Symbicort) 160-4.5 mcg/actuation HFA aerosol inhaler Discontinued 2 PUFF INHALATION TWICE A DAY 1 January 09, 2022 6:55am September 12, 2022 1:22pm administer with spacer, rinse mouth after each use Start: 01-09-2022 take 1 puff(s) by mo ut twice daily Budesonide-Formoterol (Symbicort) 160-4.5 mcg/actuation HFA aerosol inhaler Active 2 PUFF INHALATION TWICE A DAY January 09, 2022 7:55am administer with spacer, rinse mouth after each use Start: 12-18-2021 End: 01-09-2022 take 1 puff(s) by mouth twice daily Budesonide-Formoterol (Symbicort) 160-4.5 mcg/actuation HFA aerosol inhaler Discontinued 2 PUFF INHALATION TWICE A DAY 1 December 18, 2021 2:55pm January 09, 2022 7:56am administer with spacer, rinse mouth after each use Start: 12-18-2021 End: 01-09-2022 Budesonide-Formoterol (Symbi joni) 160-4.5 mcg/actuation HFA aerosol inhaler Discontinued 2 NMA INHALATION TWICE A DAY December 18, 2021 1:00am January 09, 2022 7:56am administer with spacer, rinse mouth after each use Start: 12-18-2021 End: 01-09-2022 take 1 puff(s) by mouth twice daily Budesonide-Formoterol (Symbicort) 160-4.5 mcg/actuation HFA aerosol inhaler Discontinued 2 PUFF INHALATION TWICE A DAY December 18, 2021 1:00am January 09, 2022 7:56am administer with spacer, rinse mouth after each use Start: 12-18-2021 End: 01-09-2022 take 1 puff(s) by mouth twice daily Budesonide-Formoterol (Symbicort) 160-4.5 mcg/actuation HFA aerosol inhaler Discontinued 2 PUFF INHALATION TWICE A DAY December 18, 2021 12:00am January 09, 2022 6:56am administer with spacer, rinse mouth after each use 12 hr buPROPion hydrochloride 150 mg extended release oral tablet (7 sources) Aminoketone Start: 08-31-2023 End: 04-20-2024 take 1 tablet by mouth once daily Bupropion Hcl (Wellbutrin Sr) 150 mg tablet sustained-release 12 hr Discontinued 150 mg PO DAILY October 06, 2023 9:24am April 20, 2024 7:59am cholecalciferol 1.25 mg oral capsule (13 sources) Vitamin D Start: 04-28-2024 End: 11-28-2024 take 1 capsule by mouth every week Cholecalciferol (Vitamin D3) 1,250 mcg (50,000 unit) capsule Discontinued 1250 ug PO EVERY WEEK July 14, 2024 11:56am November 28, 2024 2:05pm Start: 09-01-2022 End: 11-28-2024 take 1 capsule by mouth once daily Cholecalciferol (Vitamin D3) 25 mcg (1,000 unit) capsule Discontinued 25 ug PO DAILY September 01, 2022 12:00am November 28, 2024 2:05pm codeine phosphate 2 mg/ml / guaiFENesin 20 mg/ml oral solution (6 sources) Opioid Agonist Start: 12-17-2023 End: 02-24-2024 take 1 mL by mouth every six hours as needed for cough Codeine-Guaifenesin 10-100 mg/5 mL liquid Discontinued 5 mL PO EVERY 6 HOURS as needed for cough December 17, 2023 2:04pm February 24, 2024 12:54pm Start: 12-17-2023 End: 02-24-2024 take 1 mL by mouth every six hours Codeine-Guaifenesin Discontinued 5 ML PO EVERY 6 HOURS December 17, 2023 2:04pm February 24, 2024 12:54pm escitalopram 5 mg oral tablet (20 sources) Serotonin Reuptake Inhibitor Start: 12-23-2023 End: 04-12-2025 take 1 tablet by mouth once daily Escitalopram Oxalate 5 mg tablet Discontinued 5 mg PO DAILY August 08, 2024 10:54am January 11, 2025 10:40am Start: 08-31-2023 End: 12-23-2023 take 5 mg by mouth once daily Escitalopram Oxalate 10 mg tablet Discontinued 5 mg PO DAILY August 31, 2023 7:50am December 23, 2023 10:02am Start: 08-31-2023 End: 12-23-2023 take 5 mg by mouth once daily Escitalopram Oxalate Dis continued 5 MG PO DAILY August 31, 2023 7:50am December 23, 2023 10:02am Start: 08-03-2023 End: 08-31-2023 take 1 tablet by mouth once daily Escitalopram Oxalate 10 mg tablet Discontinued 10 mg PO DAILY August 03, 2023 10:27am August 31, 2023 7:50am Start: 08-26-2022 End: 08-03-2023 take 1 tablet by mouth once daily Escitalopram Oxalate 5 mg tablet Discontinued 0 .ROUTE .COMPLEX June 21, 2023 9:53am August 03, 2023 10:58am TAKE 1 TABLET BY MOUTH EVERY DAY Start: 06-17-2019 End: 12-01-2019 take 1 tablet by mouth once daily Escitalopram Oxalate 5 mg tablet Discontinued 5 mg PO DAILY June 17, 2019 12:00am December 01, 2019 5:14pm fluticasone propionate 0.05 mg/actuat metered dose nasal spray (18 sources) Corticosteroid Start: 11-13-2021 End: 08-26-2022 Fluticasone Propionate 50 mcg/actuation spray,suspension Discontinued 2 NMA INTRANASAL DAILY December 19, 2021 9:48am August 26, 2022 3:01pm Start: 11-13-2021 End: 08-26-2022 Fluticasone Propionate Disco ntinued 2 SPRAY INTRANASAL DAILY December 19, 2021 9:48am August 26, 2022 3:01pm glycopyrrolate 1 mg oral tablet (9 sources) Start: 05-01-2021 End: 10-14-2022 take 1 tablet by mouth twice daily Glycopyrrolate 1 mg tablet Discontinued 1 mg PO TWICE A DAY May 01, 2021 12:00am October 14, 2022 4:03pm ibuprofen 200 mg oral capsule (20 sources) Nonsteroidal Anti-inflammatory Drug Start: 08-26-2022 End: 10-14-2022 take 1 tablet by mouth once daily Ibuprofen 800 mg tablet Discontinued 800 mg PO DAILY August 26, 2022 12:00am October 14, 2022 4:46pm On Hold: Duplicate Order Start: 08-26-2022 End: 10-14-2022 take 4 capsules by mouth every six hours as needed Ibuprofen 200 mg capsule Discontinued 800 mg PO EVERY 6 HOURS as needed August 26, 2022 12:00am November 22nd, 2022 4:45pm On Hold: Order Changed Start: 08-26-2022 End: 10-14-2022 take 800 mg by mouth every six hours Ibuprofen Discontinued 800 MG PO EVERY 6 HOURS August 26, 2022 12:00am October 14, 2022 4:45pm On Hold: Order Changed Start: 06-17-2019 End: 06-13-2020 take 1 tablet by mouth every six hours as needed Ibuprofen 200 mg tablet Discontinued 200 mg PO EVERY 6 HOURS as needed June 17, 2019 12:00am June 13, 2020 4:19pm Leg Brace (Kane Knee Brace) misc (14 sources) Start: 09-01-2022 End: 2024 Leg Brace (Kane Knee Brace) m isc Discontinued 0 .Route September 01, 2022 8:14am 2024 9:30am As directed Start: 09-01-2022 Leg Brace (Kane Knee Brace) misc Active 0 .Route September 01, 2022 8:14am As directed Start: 09-01-2022 Leg Brace (Kane Knee Brace) misc Active 0 .Route September 01, 2022 7:14am As directed Start: 08-26-2022 End: 09-01-2022 Leg Brace (Kane Knee Brace) m isc Discontinued 0 .Route August 26, 2022 12:00am September 01, 2022 8:14am As directed Start: 08-26-2022 End: 09-01-2022 Leg Brace (Kane Knee Brace) m isc Discontinued 0 .Route August 25, 2022 11:00pm September 01, 2022 7:14am As directed 200 actuat levalbuterol 0.045 mg/actuat metered dose inhaler (9 sources) beta2-Adrenergic Agonist Start: 01-06-2022 End: 11-28-2024 Levalbuterol Tartrate 45 mcg/actuation HFA aerosol inhaler Discontinued 2 NMA INHALATION EVERY 6 HOURS January 06, 2022 1:00am November 28, 2024 2:06pm Start: 01-06-2022 Levalbuterol T artrate Active 2 INH INHALATION EVERY 6 HOURS January 06, 2022 1:00am lisinopril 20 mg oral tablet (20 sources) Angiotensin Converting Enzyme Inhibitor Start: 10-14-2022 End: 10-26-2024 take 1 tablet by mouth once daily Lisinopril 20 mg tablet Discontinued 0 .ROUTE .COMPLEX January 28, 2024 9:47am April 20, 2024 7:59am TAKE 1 TABLET BY MOUTH EVERY DAY meloxicam 15 mg oral tablet (7 sources) Nonsteroidal Anti-inflammatory Drug Start: 09-24-2022 End: 12-29-2022 take 1 tablet by mouth once daily Meloxicam 15 mg tablet Discontinued 15 mg PO DAILY September 24, 2022 12:00am December 29, 2022 2:35pm Do not take in conjunction with other NSAIDs. Tylenol is okay. Multivitamin With Minerals (Hair,Skin And Nails) tablet (2 sources) Start: 11-28-2024 End: 04-06-2025 Multivitamin With Minerals (Hair,Skin And Nails) tablet Discontinued 1 {tbl} PO daily November 28, 2024 1:00am April 06, 2025 10:04am omeprazole 40 mg delayed release oral capsule (9 sources) Proton Pump Inhibitor Start: 05-10-2020 End: 06-13-2020 take 1 capsule by mouth once daily Omeprazole 40 mg capsule,delayed release(DR/EC) Discontinued 40 mg PO DAILY May 10, 2020 12:00am June 13, 2020 4:19pm rosuvastatin calcium 5 mg oral tablet (6 sources) HMG-CoA Reductase Inhibitor Start: 06-29-2024 End: 03-27-2025 take 1 tablet by mouth once daily Rosuvastatin 5 mg tablet Discontinued 5 mg PO DAILY October 02, 2024 6:32pm March 27, 2025 7:40am SEMAGLUTIDE (2 sources) Start: 2024 End: 11-28-2024 SEMAGLUTIDE Discontinued SC 2024 12:00am November 28, 2024 2:06pm Semaglutide (Weight Loss) (6 sources) Start: 08-03-2023 End: 08-04-2023 Semaglutide (Weight Loss) (Wegovy) 0.25 mg/0.5 mL pen injector Discontinued 0.25 mg SC EVERY WEEK August 03, 2023 12:00am August 04, 2023 11:09am administer weeks 1 through 4 of therapy Start: 08-03-2023 End: 08-04-2023 Semaglutide (Weight Loss) (W egovy) 0.25 mg/0.5 mL pen injector Discontinued 0.25 MG SC EVERY WEEK August 03, 2023 12:00am August 04, 2023 11:09am administer weeks 1 through 4 of therapy tiZANidine 2 mg oral tablet (9 sources) Central alpha-2 Adrenergic Agonist Start: 04-24-2021 End: 08-26-2022 take 1 tablet by mouth twice daily as needed Tizanidine 2 mg tablet Discontinued 2 mg PO TWICE A DAY as needed for muscle spasticity April 24, 2021 12:00am August 26, 2022 3:01pm ubrogepant 50 mg oral tablet (7 sources) Start: 09-17-2022 End: 2024 take 1 tablet by mouth once Ubrogepant (Ubrelvy) 50 mg tablet Discontinued 50 mg PO ONCE September 17, 2022 12:00am 2024 9:30am as a single dose; may repeat once in >=2 hours after first dose if needed verapamil hydrochloride 40 mg oral tablet (20 sources) Calcium Channel Min Start: 10-06-2022 End: 10-14-2022 take 1 tablet by mouth three times daily Verapamil 40 mg tablet Discontinued 40 mg PO THREE TIMES A DAY 90 October 06, 2022 5:02pm October 14, 2022 4:48pm Start: 09-17-2022 End: 10-06-2022 take 1 tablet by mouth twice daily Verapamil 40 mg tablet Discontinued 40 mg PO TWICE A DAY 60 October 06, 2022 3:16pm October 06, 2022 5:03pm Problems Active Problems Problem Classification Problem Date Documented Da te Episodic/Chronic Abdominal pain (13 sources) Right upper quadrant pain; Translations: [Right upper quadrant pain] Onset: 09-20-2024 04-06-2025 Episodic Administrative/social admission (1 source) Persons encountering health services in other specified circumstances; Translations: [Other reasons for seeking consultation] Episodic Anxiety disorders (10 sources) Mixed anxiety and depressive disorder; Translations: [Anxiety disorder, unspecified] 05-07-2021 Chronic Asthma (20 sources) Asthma; Translations: [Unspecified asthma, uncomplicated] Chronic Deficiency and other anemia (9 sources) Anemia; Translations: [Anemia, unspecified] 08-26-2022 Episodic Comment on above: When teenager Diabetes mellitus without complication (5 sources) Diabetes mellitus; Translations: [Type 2 diabetes mellitus without complications] Onset: 11-30-2024 11-28-2024 Chronic Disorders of lipid metabolism (13 sources) Hyperlipidemia; Translations: [Hyperlipidemia, unspecified] Onset: 06-29-2024 Chronic Essential hypertension (20 sources) Hypertensive disorder; Translations: [Essential (primary) hypertension] Chronic Genitourinary symptoms and ill-defined conditions (3 sources) Frequency of micturition; Translations: [Urinary frequency] 08-03-2023 Episodic Headache; including migraine (1 source) Migraine, unspecified, not intractable, without status migrainosus; Translations: [Migraine, unspecified, without mention of intractable migraine without mention of status migrainosus] Chronic Headache; including migraine (10 sources) Frequent headache; Translations: [Frequent headaches] Episodic Comment on above: When teenager Heart valve disorders (10 sources) Heart murmur; Translations: [Cardiac murmur, unspecified] Episodic Joint disorders and dislocations; trauma-related (1 source) Patellofemoral disorders, right knee; Translations: [Pain in joint, lower leg] Chronic Mood disorders (8 sources) Major depressive disorder, single episode, moderate; Translations: [Major depressive affective disorder, single episode, moderate] Chronic Nutritional deficiencies (8 sources) Vitamin D deficiency, unspecified; Translations: [Unspecified vitamin D deficiency] Onset: 06-29-2024 Chronic Osteoarthritis (1 source) Bilateral primary osteoarthritis of knee; Translations: [Osteoarthrosis, localized, primary, lower leg] Chronic Other circulatory disease (9 sources) Tightness in throat; Translations: [Other specified symptoms and signs involving the circulatory and respiratory systems] 08-26-2022 Episodic Other gastrointestinal disorders (9 sources) Irritable bowel syndrome; Translations: [Irritable bowel syndrome without diarrhea] 08-26-2022 Chronic Other gastrointestinal disorders (9 sources) Dysphagia; Translations: [Dysphagia, unspecified] 08-26-2022 Episodic Other lower respiratory disease (9 sources) Dyspnea; Translations: [Shortness of breath] 08-26-2022 Episodic Other non-traumatic joint disorders (2 sources) Pain in left knee; Translations: [Pain in joint, lower leg] Episodic Other nutritional; endocrine; and metabolic disorders (11 sources) Obesity; Translations: [Obesity, unspecified] 01-09-2022 Chronic Other nutritional; endocrine; and metabolic disorders (7 sources) Obesity, unspecified; Translations: [Obesity, unspecified] Onset: 04-06-2025 Chronic Other nutritional; endocrine; and metabolic disorders (4 sources) Body mass index 30+ - obesity; Translations: [Body mass index (BMI) 33.0-33.9, adult] 09-06-2024 Chronic Other nutritional; endocrine; and metabolic disorders (1 source) Body mass index (BMI) 33.0-33.9, adult; Translations: [Body mass index [BMI] 33.0-33.9, adult] Onset: 04-06-2025 Chronic Other upper respiratory infections (9 sources) Posterior rhinorrhea; Translations: [Postnasal drip] 08-26-2022 Episodic Residual codes; unclassified (9 sources) Sleep apnea; Translations: [Sleep apnea, unspecified] 05-01-2021 Chronic Residual codes; unclassified (1 source) Hypersomnia, unspecified; Translations: [Hypersomnia, unspecified] Onset: 05-11-2024 Chronic Residual codes; unclassified (9 sources) History of colonoscopy; Translations: [Other specified postprocedural states] 08-26-2022 Episodic Comment on above: 09/14/2020 Spondylosis; intervertebral disc disorders; other back problems (2 sources) Disorder of right sciatic nerve; Translations: [Sciatica, right side] 01-24-2025 Episodic Thyroid disorders (1 source) Nontoxic single thyroid nodule; Translations: [Nontoxic single thyroid nodule] Onset: 07-06-2024 Chronic Past or Other Problems Problem Classification Problem Date Documented Date Episodic/Chronic Cardiac dysrhythmias (5 sources) Palpitations; Translations: [Palpitations] Onset: 11-28-2024 02-24-2024 Episodic Malaise and fatigue (11 sources) Fatigue; Translations: [Other fatigue] Onset: 07-24-2024 08-26-2022 Episodic Nonspecific chest pain (9 sources) Tight chest; Translations: [Other chest pain] Onset: 09-01-2024 06-29-2024 Episodic Other screening for suspected conditions (not mental disorders or infectious disease) (4 sources) Thallium stress test abnormal; Translations: [Abnormal result of other cardiovascular function study] Onset: 05-06-2024 11-28-2024 Episodic Results Test Name Value Interpretation Reference Range Facility Absolute lymphocyte countOrd ered By: Dony Blank on 04-06-2025 Lymphocytes Auto (Unsp spec) [#/Vol] 2.81 10*3/uL 0.83-4.51 [facility] Absolute neutrophil countOrd ered By: Dony Blank on 04-06-2025 Neutrophils (Bld) [#/Vol] 3.7 10*3/uL 2.0-7.7 [facility] Amylaseon 04-06-2025 JONE 68 U/L Normal 28-100 [facility] Comment on above: Performed By: #### L 100.0100, L500.4050, L501.2400, L501.2450 ####[facility] [id number] [place], [place], [id number] Anion gap in Serum or Plasma Ordered By: Dony Blank on 04-06-2025 Anion gap [Moles/Vol] 11 mmol/L 04-06 [facility] Automated lymphocyte count a s percentage of total leukocytesOrdered By: Dony Blank on 04-06-2025 Lymphocytes/100 WBC Auto (Unsp spec) 39.2 % - [facility] BUN/creatinine ratioOrdered By: Dony Blank on 04-06-2025 Urea nitrogen/Creatinine [Mass ratio] 14.3 mg/mg 10- [facility] Basophil percentageOrdered B y: Dony Blank on 04-06-2025 Basophils/100 WBC (Bld) 0.7 % 0-1 [facility] [facility] Bilirubin, totalOrdered By: Dony Blank on 04-06-2025 Bilirubin [Mass/Vol] 0.34 mg/dL 0.00-1.30 [facility] CBC W/Diff, Automatedon 03-23 Absolute Lymph 2.81 X10 3/uL Normal 0.83-4.51 [facility] Comment on above: Performed By: #### L 100.0100, L500.4050, L501.2400, L501.2450 ####[facility] [address] [place], [address] Absolute Neut 3.7 X10 3/uL Normal 2.0-7.7 [facility] Comment on above: Performed By: #### L 100.0100, L500.4050, L501.2400, L501.2450 ####[facility] [address] [place], [address] Basophils/100 WBC (Bld) 0.7 % Normal 0-1 [facility] Comment on above: Performed By: #### L 100.0100, L500.4050, L501.2400, L501.2450 ####[facility] [address] [place], [address] Eosinophils/100 WBC (Bld) 1.5 % Normal 0-5 [facility] Comment on above: Performed By: #### L 100.0100, L500.4050, L501.2400, L501.2450 ####[facility] [address] [place], [address] Erythrocyte distribution width (RBC) [Ratio] 12.9 % Normal 11.6-14.6 [facility] Comment on above: Performed By: #### L 100.0100, L500.4050, L501.2400, L501.2450 ####[facility] [address] [place], [address] Hematocrit (Bld) [Volume fraction] 42.7 % Normal 37-47 [facility] Comment on above: Performed By: #### L 100.0100, L500.4050, L501.2400, L501.2450 ####[facility] [address] [place], [address] Hemoglobin (Bld) [Mass/Vol] 14.2 g/dL Normal 12.0-15.0 [facility] Comment on above: Performed By: #### L 100.0100, L500.4050, L501.2400, L501.2450 ####[facility] [address] [place], [address] IG% 0.300 Normal 0.0-0.9 [facility] Comment on above: Result Comment: IG% - Immature Granulocytes (promyelocytes, myelocytes and metamyelocytes) > 1% indicates that a LEFT SHIFT is Present. Performed By: #### L 100.0100, L500.4050, L501.2400, L501.2450 ####[facility] [address] [place], [address] Lymphocytes/100 WBC (Bld) 39.2 % Normal 19-41 [facility] Comment on above: Performed By: #### L 100.0100, L500.4050, L501.2400, L501.2450 ####[facility] [address] [place], [address] MCH (RBC) [Entitic mass] 28.6 pg Normal 27.0-32.0 [facility] Comment on above: Performed By: #### L 100.0100, L500.4050, L501.2400, L501.2450 ####[facility] [address] [place], [address] MCHC (RBC) [Mass/Vol] 33.3 g/dL Normal 32-36 [facility] Comment on above: Performed By: #### L 100.0100, L500.4050, L501.2400, L501.2450 ####[facility] [address] [place], [address] MCV (RBC) [Entitic vol] 85.9 fL Normal 81-99 [facility] Comment on above: Performed By: #### L 100.0100, L500.4050, L501.2400, L501.2450 ####[facility] [address] [place], [address] Monocytes/100 WBC (Bld) 6.8 % Normal 0-10 [facility] Comment on above: Performed By: #### L 100.0100, L500.4050, L501.2400, L501.2450 ####[facility] [address] [place], [address] Neutrophils/100 WBC (Bld) 51.5 % Normal 47-70 [facility] Comment on above: Performed By: #### L 100.0100, L500.4050, L501.2400, L501.2450 ####[facility] [address] [place], [address] Nucleated RBC (Bld) [#/Vol] 0 10*3/uL Normal 0-5 [facility] Comment on above: Performed By: #### L 100.0100, L500.4050, L501.2400, L501.2450 ####[facility] [address] [place], [address] Platelet mean volume (Bld) [Entitic vol] 12.6 fL High 6.2-12.0 [facility] Comment on above: Performed By: #### L 100.0100, L500.4050, L501.2400, L501.2450 ####[facility] [address] [place], [address] Platelets (Bld) [#/Vol] 266 10*3/uL Normal 150-450 [facility] Comment on above: Performed By: #### L 100.0100, L500.4050, L501.2400, L501.2450 ####[facility] [address] [place], [address] RBC (Bld) [#/Vol] 4.97 10*6/uL Normal 4.2-5.4 [facility] Comment on above: Performed By: #### L 100.0100, L500.4050, L501.2400, L501.2450 ####[facility] [address] [place], [address] RDW SD 40.2 fl Normal 35.1-43.9 [facility] Comment on above: Performed By: #### L 100.0100, L500.4050, L501.2400, L501.2450 ####[facility] [address] [place], [address] WBC (Bld) [#/Vol] 7.2 10*3/uL Normal 4.4-11.0 [facility] Comment on above: Performed By: #### L 100.0100, L500.4050, L501.2400, L501.2450 ####[facility] [address] [place], [address] Carbon dioxide, total [Moles /volume] in Central venous bloodOrdered By: Dony Blank on 04-06-2025 CO2 [Moles/Vol] 25.4 mmol/L 21.0-32.0 [facility] Chloride assayOrdered By: Yang Blank on 04-06-2025 Chloride [Moles/Vol] 101 mmol/L 98-108 [facility] Comprehensive Metabolic Prof ilon 04-06-2025 Albumin [Mass/Vol] 4.3 g/dL Normal 3.5-5.0 [facility] Comment on above: Performed By: #### L 100.0100, L500.4050, L501.2400, L501.2450 ####[facility] [address] [place], [address] Albumin/Globulin [Mass ratio] 1.2 {ratio} Normal 0.9-2.4 [facility] Comment on above: Performed By: #### L 100.0100, L500.4050, L501.2400, L501.2450 ####[facility] [address] [place], [address] ALK PHOS 85 U/L Normal 35-104 [facility] Comment on above: Performed By: #### L 100.0100, L500.4050, L501.2400, L501.2450 ####[facility] [address] [place], [address] ALT [Catalytic activity/Vol] 12 U/L Normal <=34 [facility] Comment on above: Performed By: #### L 100.0100, L500.4050, L501.2400, L501.2450 ####[facility] [address] [place], [address] AST [Catalytic activity/Vol] 17 U/L Normal <=31 [facility] Comment on above: Performed By: #### L 100.0100, L500.4050, L501.2400, L501.2450 ####[facility] [address] [place], [address] Bilirubin [Mass/Vol] 0.34 mg/dL Normal 0.00-1.30 [facility] Comment on above: Performed By: #### L 100.0100, L500.4050, L501.2400, L501.2450 ####[facility] [address] [place], [address] BUN/CRE 14.3 RATIO Normal 10-20 [facility] Comment on above: Performed By: #### L 100.0100, L500.4050, L501.2400, L501.2450 ####[facility] [address] [place], [address] Calcium [Mass/Vol] 9.8 mg/dL Normal 7.6-11.0 [facility] Comment on above: Performed By: #### L 100.0100, L500.4050, L501.2400, L501.2450 ####[facility] [address] [place], [address] Chloride [Moles/Vol] 101 mmol/L Normal 98-108 [facility] Comment on above: Performed By: #### L 100.0100, L500.4050, L501.2400, L501.2450 ####[facility] [address] [place], [address] CO2 [Moles/Vol] 25.4 mmol/L Normal 21.0-32.0 [facility] Comment on above: Performed By: #### L 100.0100, L500.4050, L501.2400, L501.2450 ####[facility] [address] [place], [address] Creatinine [Mass/Vol] 0.58 mg/dL Low 0.70-1.20 [facility] Comment on above: Performed By: #### L 100.0100, L500.4050, L501.2400, L501.2450 ####[facility] [address] [place], [address] GAP 11 Normal 5-15 [facility] Comment on above: Performed By: #### L 100.0100, L500.4050, L501.2400, L501.2450 ####[facility] [address] [place], [address] GFR/1.73 sq M.predicted among non-blacks MDRD (S/P/Bld) [Vol rate/Area] 107 mL/min/{1.73_m2} Normal >60 [facility] Comment on above: Result Comment: mL/m in/1.73m2 CKD-EPI Creatinine Equation (2020) Performed By: #### L 100.0100, L500.4050, L501.2400, L501.2450 ####[facility] [address] [place], [address] Globulin (S) [Mass/Vol] 3.7 g/dL Normal 2.2-4.2 [facility] Comment on above: Performed By: #### L 100.0100, L500.4050, L501.2400, L501.2450 ####[facility] [address] [place], [address] Glucose [Mass/Vol] 88 mg/dL Normal 70-99 [facility] Comment on above: Performed By: #### L 100.0100, L500.4050, L501.2400, L501.2450 ####[facility] [address] [place], [address] Potassium [Moles/Vol] 4.7 mmol/L Normal 3.3-5.1 [facility] Comment on above: Performed By: #### L 100.0100, L500.4050, L501.2400, L501.2450 ####[facility] [address] [place], [address] Sodium [Moles/Vol] 137 mmol/L Normal 133-145 [facility] Comment on above: Performed By: #### L 100.0100, L500.4050, L501.2400, L501.2450 ####[facility] [address] [place], [address] T PROT 8.0 g/dL Normal 5.9-8.4 [facility] Comment on above: Performed By: #### L 100.0100, L500.4050, L501.2400, L501.2450 ####[facility] [address] [place], [address] Urea nitrogen [Mass/Vol] 8 mg/dL Normal 4-19 [facility] Comment on above: Performed By: #### L 100.0100, L500.4050, L501.2400, L501.2450 ####[facility] [address] [place], [address] Eosinophil percentageOrdered By: Dony Blank on 04-06-2025 Eosinophils/100 WBC (Bld) 1.5 % 0-5 [facility] Erythrocyte distribution wid th ratioOrdered By: Dony Blank on 04-06-2025 Erythrocyte distribution width (RBC) [Ratio] 12.9 % 11.6-14.6 [facility] Erythrocyte distribution wid th standard deviationOrdered By: Dony Blank on 04-06-2025 Erythrocyte distribution width (RBC) [Ratio] 40.2 fl 35.1-43.9 [facility] Glomerular filtration rate ( GFR) estimation/1.73 sq m using serum, plasma, or whole bOrdered By: Dony Wayt on 04-06-2025 GFR/1.73 sq M.predicted among non-blacks MDRD (S/P/Bld) [Vol rate/Area] 107 mL/min/{1.73_m2} >60 [facility] Comment on above: mL/min/1.73m2 CKD-EP I Creatinine Equation (2020) Hematocrit Auto (Bld) [Volum e fraction]Ordered By: Dony Blank on 04-06-2025 Hematocrit (Bld) [Volume fraction] 42.7 % 37-47 [facility] Hemoglobin measurementOrdere d By: Dony Blank on 04-06-2025 Hemoglobin (Bld) [Mass/Vol] 14.2 g/dL 12.0-15.0 [facility] Immature granulocytes/100 WB C Auto (Bld)Ordered By: Dony Blank on 04-06-2025 Immature granulocytes/100 WBC (Bld) 0.300 % 0.0-0.9 [facility] Comment on above: IG% - Immature Granu locytes (promyelocytes, myelocytes and metamyelocytes) > 1% indicates that a LEFT SHIFT is Present. Internal Medicine Office Vis jamshid 04-06-2025 Internal Medicine Office Visit [facility] [address] [place] [address] [place] [address] OFFICE VISIT Date of Service: 04/06/25 MR#: [id number] Acct: [id number] Name: CARLA ANDERSON Rep #: [id number] : 1970 Provider: NELSON Giraldo Age/Sex: 54/F Location: [facility] Status: Signed Intake Vital Signs 01/24/25 10:44 04/06/25 10:05 Height 5 ft 8 in 5 ft 8 in Weight: 219 lb 8 oz 220 lb BMI 33.3 33.4 BP 142/80 H 118/80 Blood Pressure Location Lt brachial Lt brachial Position Sitting Sitting Respiration 16 16 Pulse 81 71 Pulse Source Monitor Monitor Temp 96.9 F L 98.7 F Temp Source Temporal Temporal Pulse Oximetry (%) 96 99 Oxygen Delivery Method room air room air Intake Visit Reasons: UPPER RT SIDE PAIN 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 Is patient in pain?: Yes (RUQ) Pain scale (1-10): 6 Allergies No Known Allergies Allergy (Verified 04/06/25 09:53) Medications ???Medication ???Instructions ???Recorded ???Confirmed ???Type semaglutide 0.25 mg or 0.5 mg (2 0.5 mg (0.736 mL) subcut QWEEK #3 06/22/24 04/06/25 Rx mg/3 mL) subcutaneous pen injector mL (Ozempic) lisinopril 20 mg tablet See Rx Instructions .Route 4 04/06/25 Rx .COMPLEX #90 tabs escitalopram oxalate 5 mg tablet 5 mg PO DAILY #90 tabs 01/11/25 Rx rosuvastatin 5 mg tablet 5 mg PO DAILY #90 tabs 03/27/25 Rx famotidine 20 mg tablet 20 mg PO BID #30 tabs 04/06/25 Rx Nurse's Note: Pt still having intermittent RUQ pain, was addressed w/ Dr. Salvador. due to the ER visit in 08/2024 advised could be biliary colic, pt did nto want addition testing at time of last OV. Pt states it is happening more frequent. States tends to happen when she eats high fat/sugar foods and drinks. She has tried to steer clear and today it is a bit worse. Pt states when it happens it is there all the time until it eventually goes away, She states that the pain is a Dull achey pressure, that is in the bottom of R shoulder blade along w/ RUQ. Pt states she has had more loose stools but has attributed that and the nausea to Ozempic, she states she was wanting to come off of this and would discuss w/ pcp at next appointment. Denies abdominal cramping,reflux,vomitin g,SOB. Has been treating w/ diet change, and ibuprofen, leaning forward to try and alleviate pressure which is not longer helping. [facility] Medical History Wears contact lenses Wears glasses History of IBS Non-smoker Shortness of breath on exertion Hypertension Sleep apnea Fatigue Throat tightness Difficulty swallowing Anxiety and depression Heart murmur Hyperlipidemia High blood pressure Frequent headaches Anemia Surgical History Hx of tubal ligation History of colonoscopy History of shoulder surgery History of excision of pilonidal cyst History of tonsillectomy and adenoidectomy History of loop electrosurgical excision procedure (LEEP) Family History Mother Anxiety Depression Breast cancer Father Cancer Melanoma Brother Cancer Hodgkin lymphoma Grandmother Breast cancer Social History household members: spouse current occupational status: employed 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 She has been having this intermittently since August. She was evaluated in the ED at that time. She did have an outpatient U/S of the gallbladder which was normal. She had thought that things were doing better / had subsided until she started to have some return of symptoms recently. She states that she always had a little nausea with some fullness / bloating at the same time this was thought to be attributed to the Semaglutide. She states that she has occasional heartburn / belching with certain foods that she would expect at the same time nothing persistent or consistent. She had a history of some IBS when she was in high school but nothing after She does not currently take supplements or probiotics She states that the past few days she has tried to be drinking more water. She admits (more content not included)... Normal [facility] Laboratory - Chemistry and C hemistry - challengeOrdered By: Dony Blank on 04-06-2025 AST [Catalytic activity/Vol] 17 U/L <32 [facility] Lipaseon 04-06-2025 Lipase [Catalytic activity/Vol] 23 U/L Normal 13-75 [facility] Comment on above: Result Comment: Viri collins note: LIPASE revised reference range effective 23. New Lipase methodology. Expected to produce lower values than the previous assay method. NEW Reference Range: 13 - 75 U/L Performed By: #### L 100.0100, L500.4050, L501.2400, L501.2450 ####[facility] [address] [place], [address] Lipase measurementOrdered By : Dony Blank on 04-06-2025 Lipase [Catalytic activity/Vol] 23 U/L 13-75 [facility] Comment on above: Please note:LIPASE r evised reference range effective 23. New Lipase methodology. Expected to produce lower values than the previous assay method. NEW Reference Range: 13 - 75 U/L MCV (mean corpuscular volume ) determinationOrdered By: Dony Blank on 04-06-2025 MCV (RBC) [Entitic vol] 85.9 fL 81-99 [facility] Mean corpuscular hemoglobin (MCH) determinationOrdered By: Dony Blank on 04-06-2025 MCH (RBC) [Entitic mass] 28.6 pg 27.0-32.0 [facility] Mean corpuscular hemoglobin concentration (MCHC) determinationOrdered By: Dony Blank on 04-06-2025 MCHC (RBC) [Mass/Vol] 33.3 g/dL 32-36 [facility] Mean platelet volume determi nationOrdered By: Dony Blank on 04-06-2025 Platelet mean volume (Bld) [Entitic vol] 12.6 fL High 6.2-12.0 [facility] Monocyte percentageOrdered B y: Dony Blank on 04-06-2025 Monocytes/100 WBC (Bld) 6.8 % 0-10 [facility] Neutrophil percentageOrdered By: Dony Blank on 04-06-2025 Neutrophils/100 WBC (Bld) 51.5 % 47-70 [facility] Nucleated red blood cell per centageOrdered By: Dony Blank on 04-06-2025 Nucleated RBC/100 WBC (Bld) [Ratio] 0 % 0-5 [facility] Platelet countOrdered By: Yang Blank on 04-06-2025 Platelets (Bld) [#/Vol] 266 10*3/uL 150-450 [facility] Potassium measurement (mass/ volume)Ordered By: Dony Blank on 04-06-2025 Potassium (Unsp spec) [Mass/Vol] 4.7 mmol/L 3.3-5.1 [facility] RBC Auto (Bld) [#/Vol]Ordere d By: Dony Blank on 04-06-2025 RBC (Bld) [#/Vol] 4.97 10*6/uL 4.2-5.4 [facility] Serum creatinine measurement (mass/volume)Ordered By: Dony Blank on 04-06-2025 Creatinine [Mass/Vol] 0.58 mg/dL Low 0.70-1.20 [facility] Serum globulin measurementOr dered By: Dony Blank on 04-06-2025 Globulin (S) [Mass/Vol] 3.7 g/dL 2.2-4.2 [facility] Serum glucose measurement (m ass/volume)Ordered By: Dony Blank on 04-06-2025 Glucose [Mass/Vol] 88 mg/dL 70-99 [facility] Serum or plasma alanine zapata otransferase (ALT) measurementOrdered By: Dony Blank on 04-06-2025 ALT [Catalytic activity/Vol] 12 U/L <35 [facility] Serum or plasma albumin estefania urement (mass/volume)Ordered By: Dony Blank on 04-06-2025 Albumin [Mass/Vol] 4.3 g/dL 3.5-5.0 [facility] Serum or plasma albumin/glob ulin mass ratioOrdered By: Dony Blank on 04-06-2025 Albumin/Globulin [Mass ratio] 1.2 {ratio} 0.9-2.4 [facility] Serum or plasma alkaline russel sphatase measurementOrdered By: Dony Blank on 04-06-2025 ALP [Catalytic activity/Vol] 85 U/L 35-104 [facility] Serum or plasma amylase estefania urement (enzymatic activity/volume)Ordered By: Dony Blank on 04-06-2025 Amylase [Catalytic activity/Vol] 68 U/L 28-100 [facility] Serum or plasma calcium estefania urement (mass/volume)Ordered By: Dony Blank on 04-06-2025 Calcium [Mass/Vol] 9.8 mg/dL 7.6-11.0 [facility] Serum or plasma urea nitroge n measurement (mass/volume)Ordered By: Dony Blank on 04-06-2025 Urea nitrogen [Mass/Vol] 8 mg/dL 4-19 [facility] Sodium levelOrdered By: Gurdeep Blank on 04-06-2025 Sodium [Moles/Vol] 137 mmol/L 133-145 [facility] Total proteinOrdered By: Servando Blank on 04-06-2025 Protein [Mass/Vol] 8.0 g/dL 5.9-8.4 [facility] White blood cell (WBC) count Ordered By: Dony Blank on 04-06-2025 WBC (Bld) [#/Vol] 7.2 10*3/uL 4.4-11.0 [facility] Internal Medicine Office Vis jamshid 01-23-2025 Internal Medicine Office Visit [facility] [address] [place] [address] [place] [address] OFFICE VISIT Date of Service: 01/24/25 MR#: [id number] Acct: [id number] Name: CARLA ANDERSON Rep #: [id number] : 1970 Provider: Dr. 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 Accompanied by: Self Is patient in pain?: No Allergies No Known Allergies Allergy (Verified 01/24/25 10:41) Medications ???Medication ???Instructions ???Recorded ???Confirmed ???Type semaglutide 0.25 mg or 0.5 mg (2 0.5 mg (0.736 mL) subcut QWEEK #3 06/22/24 01/24/25 Rx mg/3 mL) subcutaneous pen injector mL (Ozempic) rosuvastatin 5 mg tablet 5 mg PO DAILY #90 tabs 10/02/24 Rx lisinopril 20 mg tablet See Rx Instructions .Route 4 01/24/25 Rx .COMPLEX #90 tabs multivitamin with minerals 1 tab PO QDAY 11/28/24 01/24/25 Hi story (Hair,Skin and Nails tablet) escitalopram oxalate 5 mg tablet 5 mg PO DAILY #90 tabs 01/11/25 Rx Have you fallen in the past year?: No PFSH Medical History Wears contact lenses Wears glasses History of IBS Non-smoker Shortness of breath on exertion Hypertension Sleep apnea Fatigue Throat tightness Difficulty swallowing Anxiety and depression Heart murmur Hyperlipidemia High blood pressure Frequent headaches Anemia Surgical History Hx of tubal ligation History of colonoscopy History of shoulder surgery History of excision of pilonidal cyst History of tonsillectomy and adenoidectomy History of loop electrosurgical excision procedure (LEEP) Family History Mother Anxiety Depression Breast cancer Father Cancer Melanoma Brother Cancer Hodgkin lymphoma Grandmother Breast cancer Social History household members: spouse current occupational status: employed 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 She is up to date on her routine blood work and screening.??? She previously declined a flu shot.??? The patient doesn't smoke and does need refills today. She has been trying to eat healthy. She hasn't been very active. The patient follows with pulmonology for her asthma, but only sees them as needed.??? She reports she rarely needs her rescue inhaler. She denies any recent flare ups. She hasn't been checking her blood pressure recently. She has been taking her medication as prescribed without problems. She is trying to monitor her salt intake. The patient continues to do well on the lexapro for her mental health. She reports that her symptoms wax and wane but feels that with the cold weather, she feels more depressed. She states she knows what triggers it and doesn't want to adjust her dosing. She denies any thoughts of suicide. She reports with being on the semaglutide, she continues to feel that she is less hungry. She reports in the last week, she increased her dose to 0.3mL(0.75mg) stating her weight has not changed much. She reports she is doing better in terms of eating healthy. She states she is trying to do better in terms of portion control. She reports her sciatic pain has been manageable. She reports it will flare up intermittently. She will take ibuprofen which usually helps. Since she was last seen, she underwent a heart catheterization which was normal. She reports that she is still having some shortness of breath with activity, but feels it is more related to being inactive and thinks it is doing better. She reports she still has some intermittent pain in her RUQ. She reports at this time, she doesn't want any further testing done, however. She has no other questions or concerns at this time. ROS Const Constitutional: No body ache, excessive swea (more content not included)... Normal [facility] Cardiac Cath Diagnosticon Cardiac Cath Diagnostic [facility] Imaging Services [address] [place] [address] Cardiac Cath Diagnostic MR#: [id number] Acct: [id number] Name: CARLA ANDERSON Rep #: [id number] : 1970 54 From: Carlos Muniz MD PCP: Dr. Leah Salvador MD Status:[facility] Patient Name: CARLA ANDERSON Study Date: 12/06/2024 Performing: Carlos Muniz MD Ht: 68 inches 172.72 cm : 1970 Wt: 222.01 lbs 100.7 kg Age: 54 Gender: female BSA: 2.14 PROCEDURE(S) PERFORMED DC01-(67976)LHC/COR/LV CLINICAL PROFILE AND INDICATIONS Indications: Suspected CAD Heart Failure: None Stress/Imaging Date: 08/10/24Stress Test with SPECT MPI: Positive Low Risk CAD Presentations: Symptom unlikely to be ischemic. CONCLUSIONS Normal coronary arteries Normal LV size, wall motion,and systolic function RECOMMENDATIONS Medical therapy DESCRIPTION OF PROCEDURE The patient arrived to the procedure lab. The risks and benefits of the procedure as well as a full description of our services here and current unavailability of surgical backup were fully explained to the patient and/or their significant other prior to the catheterization. The Timeout was completed, verifying the correct patient and procedure. The patient's procedural site was prepped and draped in the usual fashion. Local anesthetic was given subcutaneously to right radial region with Lidocaine 2%. Using a modified Seldinger technique, arterial access was obtained via the right radial artery, a 6Fr sheath was inserted. Left Coronary Artery selective angiography was performed in multiple views using a 5 Fr. 4.0 Wheatland catheter. Right Coronary Artery selective angiography was then performed in multiple views using a 5 Fr. 4.0 Wheatland catheter. Left Ventriculography was performed in MAYES projection using a 5 Fr. Pigtail catheter. LV to AO pullback pressures were then recorded.The arterial sheath was pulled and a TR Band was applied for hemostasis w/ 12ml air CORONARY ANGIOGRAPHY DOMINANCE: Right Dominant LEFT HEART ASSESSMENT Left Ventricular Ejection Fraction: by LV Gram 60 % Normal LV wall motion Normal Left Ventricular systolic function LEFT MAIN: Angiographically normal LEFT ANTERIOR DESCENDING ARTERY: Angiographically normal CIRCUMFLEX ARTERY: Angiographically normal RAMUS: Angiographically normal RIGHT CORONARY ARTERY: Angiographically normal COMPLICATIONS No Complications PROCEDURE MEDICATIONS Versed 1 mg IV Fentanyl 50 mcg IV Versed 1 mg IV Oxygen: 2 L/min via nasal cannula Aspirin (325mg) 1 Tabs PO @ 12/06/2024 07:15:16 Heparin given IA 12/06/2024 08:05:25 Verapamil 2.5mg, Ntg 100mcgs, 3000 units of Heparin given IA 12/06/2024 08:05:25 SUMMARY OF HEMODYNAMIC DATA Time AIR REST ECG 07:06:44 AO 135/89 (110) SA 08:07:12 LV 131/1, 7 08:13:12 LV 133/2, 12 08:13:20 LV 131/3, 11 08:13:44 LV 135/4, 15 08:13:52 LVp 132/3, 14 08:13:55 AOp 147/83 (110) 08:14:03 Signed By Carlos Muniz MD On 12/06/2024 08:24:16 Carlos Muniz MD 12/06/24 0825 Date Carlos Muniz MD Cosigner Signature: Date (if indicated) CC: Dr. Leah Salvador MD; Dr. Carlos Muniz MD Date Dictated: 12/06/24799 Date Transcribed: 12/06/24823 Granite Countertop Installer: [place] Signed Normal [facility] 12 Lead EKG performed by [facility] on 11-28-2024 12 Lead EKG performed by [facility] [address] [place] [address] 12 Lead EKG performed by [facility] 11/28/241044 MR#: [id number] Acct: [id number] Name: CARLA ANDERSON Rep #: [id number] : 1970 54 From: Shyam Valencia MD Attending Dr: Dr. Shyam Valencia MD Status: DE P AMB Ordering Dr: Shyam Valencia MD Date: 11/28/24 Location: [facility] Sex: F C Admitted: BMS/12 Lead EKG performed by [facility] ECG Report Interpretation ---Sinus Rhythm WITHIN NORMAL LIMITSElectronically signed on 11/28/2024 at 14:[address] Shyam Valencia [employer] Version 8610 11/28/24 1450 Date Shyam Valencia MD CC: Dr. Leah Salvador MD Date Dictated: 11/28/241044 Date Transcribed: 11/28/241044 Granite Countertop Installer: Signed Normal [facility] Basic Metabolic Profile (BMP )on 11-28-2024 BUN/CRE 11.8 RATIO Normal 10-20 [facility] Comment on above: Performed By: #### L 300.3900, L500.2500, L100.0100 #### [facility] Laboratory [address] [place], [address] CA,Total 9.3 mg/dL Normal 8.5-10.1 [facility] Comment on above: Performed By: #### L 300.3900, L500.2500, L100.0100 #### [facility] Laboratory [address] [place], [address] Chloride [Moles/Vol] 105 mmol/L Normal 98-107 [facility] Comment on above: Performed By: #### L 300.3900, L500.2500, L100.0100 #### [facility] Laboratory [address] [place], [address] CO2 [Moles/Vol] 30.0 mmol/L Normal 21.0-32.0 [facility] Comment on above: Performed By: #### L 300.3900, L500.2500, L100.0100 #### [facility] Laboratory [address] [place], [address] Creatinine [Mass/Vol] 0.85 mg/dL Normal 0.55-1.02 [facility] Comment on above: Result Comment: The validity of the calculated GFR GFRAA in patients over 70 years has not been determined. Clinical correlation is essential. Performed By: #### L 300.3900, L500.2500, L100.0100 #### [facility] Laboratory [address] [place], [address] EST GFR - AA 90 mL/min Normal >60 [facility] Comment on above: Result Comment: Afri can Honduran GFR Calc Performed By: #### L 300.3900, L500.2500, L100.0100 #### [facility] Laboratory [address] [place], [address] GAP 5 Normal 5-15 [facility] Comment on above: Performed By: #### L 300.3900, L500.2500, L100.0100 #### [facility] Laboratory [address] [place], [address] GFR/1.73 sq M.predicted among non-blacks MDRD (S/P/Bld) [Vol rate/Area] 74 mL/min/{1.73_m2} Normal >60 [facility] Comment on above: Result Comment: Non- GFR Calc Performed By: #### L 300.3900, L500.2500, L100.0100 #### [facility] Laboratory [address] [place], [address] Glucose [Mass/Vol] 123 mg/dL High 74-106 [facility] Comment on above: Result Comment: Fast ing Glucose result from 100 to 125 mg/dL suggests IMPAIRED HOMEOSTASIS per A.D.A. criteria. Performed By: #### L 300.3900, L500.2500, L100.0100 #### [facility] Laboratory [address] [place], [address] Potassium [Moles/Vol] 3.9 mmol/L Normal 3.5-5.1 [facility] Comment on above: Performed By: #### L 300.3900, L500.2500, L100.0100 #### [facility] Laboratory [address] [place], [address] Sodium [Moles/Vol] 140 mmol/L Normal 136-145 [facility] Comment on above: Performed By: #### L 300.3900, L500.2500, L100.0100 #### [facility] Laboratory [address] [place], [address] Urea nitrogen [Mass/Vol] 10 mg/dL Normal 7-18 [facility] Comment on above: Performed By: #### L 300.3900, L500.2500, L100.0100 #### [facility] Laboratory [address] [place], [address] CBC W/Diff, Automatedon 01-0 -2024 Absolute Lymph 2.29 X10 3/uL Normal 0.83-4.51 [facility] Comment on above: Performed By: #### L 300.3900, L500.2500, L100.0100 #### [facility] Laboratory [address] [place], [address] Absolute Neut 5.3 X10 3/uL Normal 2.0-7.7 [facility] Comment on above: Performed By: #### L 300.3900, L500.2500, L100.0100 #### [facility] Laboratory [address] [place], [address] Basophils/100 WBC (Bld) 0.7 % Normal 0-1 [facility] Comment on above: Performed By: #### L 300.3900, L500.2500, L100.0100 #### [facility] Laboratory [address] [place], [address] Eosinophils/100 WBC (Bld) 1.6 % Normal 0-5 [facility] Comment on above: Performed By: #### L 300.3900, L500.2500, L100.0100 #### [facility] Laboratory [address] [place], [address] Erythrocyte distribution width (RBC) [Ratio] 12.8 % Normal 11.6-14.6 [facility] Comment on above: Performed By: #### L 300.3900, L500.2500, L100.0100 #### [facility] Laboratory [address] [place], [address] Hematocrit (Bld) [Volume fraction] 40.3 % Normal 37-47 [facility] Comment on above: Performed By: #### L 300.3900, L500.2500, L100.0100 #### [facility] Laboratory [address] [place], [address] Hemoglobin (Bld) [Mass/Vol] 13.5 g/dL Normal 12.0-15.0 [facility] Comment on above: Performed By: #### L 300.3900, L500.2500, L100.0100 #### [facility] Laboratory [address] [place], [address] IG% 0.500 Normal 0.0-0.9 [facility] Comment on above: Result Comment: IG% - Immature Granulocytes (promyelocytes, myelocytes and metamyelocytes) > 1% indicates that a LEFT SHIFT is Present. Performed By: #### L 300.3900, L500.2500, L100.0100 #### [facility] Laboratory [address] [place], [address] Lymphocytes/100 WBC (Bld) 26.8 % Normal 19-41 [facility] Comment on above: Performed By: #### L 300.3900, L500.2500, L100.0100 #### [facility] Laboratory [address] [place], [address] MCH (RBC) [Entitic mass] 28.5 pg Normal 27.0-32.0 [facility] Comment on above: Performed By: #### L 300.3900, L500.2500, L100.0100 #### [facility] Laboratory [address] [place], [address] MCHC (RBC) [Mass/Vol] 33.5 g/dL Normal 32-36 [facility] Comment on above: Performed By: #### L 300.3900, L500.2500, L100.0100 #### [facility] Laboratory [address] [place], [address] MCV (RBC) [Entitic vol] 85.0 fL Normal 81-99 [facility] Comment on above: Performed By: #### L 300.3900, L500.2500, L100.0100 #### [facility] Laboratory [address] [place], [address] Monocytes/100 WBC (Bld) 7.8 % Normal 0-10 [facility] Comment on above: Performed By: #### L 300.3900, L500.2500, L100.0100 #### [facility] Laboratory [address] [place], [address] Neutrophils/100 WBC (Bld) 62.6 % Normal 47-70 [facility] Comment on above: Performed By: #### L 300.3900, L500.2500, L100.0100 #### [facility] Laboratory [address] [place], [address] Nucleated RBC (Bld) [#/Vol] 0 10*3/uL Normal 0-5 [facility] Comment on above: Performed By: #### L 300.3900, L500.2500, L100.0100 #### [facility] Laboratory [address] [place], [address] Platelet mean volume (Bld) [Entitic vol] 12.8 fL High 6.2-12.0 [facility] Comment on above: Performed By: #### L 300.3900, L500.2500, L100.0100 #### [facility] Laboratory [address] [place], [address] Platelets (Bld) [#/Vol] 226 10*3/uL Normal 150-450 [facility] Comment on above: Performed By: #### L 300.3900, L500.2500, L100.0100 #### [facility] Laboratory [address] [place], [address] RBC (Bld) [#/Vol] 4.74 10*6/uL Normal 4.2-5.4 [facility] Comment on above: Performed By: #### L 300.3900, L500.2500, L100.0100 #### [facility] Laboratory [address] [place], [address] RDW SD 39.4 fl Normal 35.1-43.9 [facility] Comment on above: Performed By: #### L 300.3900, L500.2500, L100.0100 #### [facility] Laboratory [address] [place], [address] WBC (Bld) [#/Vol] 8.5 10*3/uL Normal 4.4-11.0 [facility] Comment on above: Performed By: #### L 300.3900, L500.2500, L100.0100 #### [facility] Laboratory [address] [place], [address] Cardiology Visit Reporton Cardiology Visit Report [facility] [address] [place] [address] OFFICE VISIT Date of Service: 11/28/24 MR#: [id number] Acct: [id number] Name: CARLA ANDERSON Rep #: [id number] : 1970 Provider: Dr. Shyam sesay MD Age/Sex: 54/F Location: [facility] Status: Signed HPI HPI History of Present Illness Details: Patient comes in today for new patient visit. She is a pleasant 54-year-old white female that underwent a stress test back August 10, 2024. This stress test was done due to fatigue dyspnea on exertion and some chest discomfort. The patient describes this chest discomfort is occurring when she is profoundly fatigued like cleaning the house. Is associated with shortness of breath and the shortness of breath and chest discomfort resolved with sitting down and stopping in the fatigue eventually resolves. This has been going on for several months. The stress test she went 6 minutes on a Isaiah protocol and developed the chest discomfort she had been having at home. The nuclear scan showed apical and septal ischemia. The results of the July 2024 stress test were misplaced and were not located until just recently. She was subsequently referred to our office for further evaluation. The patient does not have a family history of early coronary disease she is not a smoker. She is diabetic recently started on semaglutide and her hemoglobin A1c fell from 6.4-5.6. She is also lost about 16 pounds of weight. The patient has a history of hypertension which is well-controlled in the office today and a history of hyperlipidemia just only recently started medical therapy. Last lipids from June 2024 showed a total cholesterol 240 HDL of 45 LDL 153 and triglycerides of 209. The patient does report that the symptoms have been progressive over the last several weeks. And is impacting her quality of life and ability to do anything. She is not able to exercise. EKG done in office today showed normal sinus rhythm at 66 bpm and is within normal limits. Intake Vital Signs 10/24/24 07:33 11/28/24 13:05 Height 5 ft 8 in 5 ft 8 in Weight: 222 lb 222 lb BMI 33.7 33.7 BP 118/82 H 114/75 Blood Pressure Location Lt brachial Lt brachial Position Sitting Sitting Respiration 14 18 Pulse 68 72 Pulse Source Monitor Monitor Temp 97.4 F L Pulse Oximetry (%) 97 95 Oxygen Delivery Method room air room air Intake Visit Reasons: ABN Stress (Madeleine) Ornamental Ironworker Required: No Accompanied by: Self Is patient in pain?: No Allergies No Known Allergies Allergy (Verified 11/28/24 13:05) Medications ???Medication ???Instructions ???Recorded ???Confirmed ???Type semaglutide 0.25 mg or 0.5 mg (2 0.5 mg (0.736 mL) subcut QWEEK #3 06/22/24 11/28/24 Rx mg/3 mL) subcutaneous pen injector mL (Ozempic) escitalopram oxalate 5 mg tablet 5 mg PO DAILY #90 tabs 08/08/24 11/28/24 Rx rosuvastatin 5 mg tablet 5 mg PO DAILY #90 tabs 10/02/24 11/28/24 Rx lisinopril 20 mg tablet See Rx Instructions .Route 10/26/24 11/28/24 Rx .COMPLEX #90 tabs multivitamin with minerals 1 tab PO QDAY 11/28/24 11/28/24 History (Hair,Skin and Nails tablet) Have you fallen in the past year?: No PFSH Medical History Wears contact lenses Wears glasses History of IBS Non-smoker Shortness of breath on exertion Hypertension Sleep apnea Fatigue Throat tightness Difficulty swallowing Anxiety and depression Heart murmur Hyperlipidemia High blood pressure Frequent headaches Anemia Surgical History Hx of tubal ligation History of colonoscopy History of shoulder surgery History of excision of pilonidal cyst History of tonsillectomy and adenoidectomy History of loop electrosurgical excision procedure (LEEP) Family History Mother Anxiety Depression Breast cancer Father Cancer Melanoma Brother Cancer Hodgkin lymphoma Grandmother Breast cancer Social History household members: spouse current occupational status: employed 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 Normal [facility] Chest PA and Lateralon 11-28 Chest PA and Lateral [facility] Imaging Services [address] [place] [address] Chest PA and Lateral MR#: [id number] Acct: [id number] Name: CARLA ANDERSON Rep #: [id number] : 1970 F 54 From: Ellen garcia MD PCP: Dr. Leah Salvador MD Status: [facility] Study: Chest PA and Lateral Date of Exam: 11/28/24 Exam# [id number] Ordering [place]: [place] [id number] HISTORY: Cath pre op. TECHNIQUE: XR Chest 2 Views. COMPARISON: 05/10/2020. FINDINGS: CARDIOMEDIASTINAL BORDERS: Cardiac silhouette within normal limits in size. Mediastinal contour unremarkable. LUNGS: Radiographically clear. PLEURA: No pleural effusion or pneumothorax seen. OSSEOUS STRUCTURES: Unremarkable. RAD/Chest PA and Lateral IMPRESSION: No acute cardiopulmonary process identified. Electronically Signed: Ellen Garrido MD at 9:23 EST , CC: Dr. Leah Salvador MD; Dr. Shyam Valencia MD Granite Countertop Installer: Signed Normal [facility] Prothrombin Time w/INRon INR Coag (PPP) [Relative time] 1.0 {INR} Normal [facility] Comment on above: Performed By: #### L 300.3900, L500.2500, L100.0100 #### [facility] Laboratory [address] [place], [address] PT Coag (PPP) [Time] 13.0 s Normal 11.7-14.9 [facility] Comment on above: Performed By: #### L 300.3900, L500.2500, L100.0100 #### [facility] Laboratory [address] [place], [address] Hemoglobin A1con 11-01-2024 HbA1c (Bld) [Mass fraction] 5.6 % Normal 3.8-5.6 [facility] Comment on above: Result Comment: Norm al < 5.7 % Prediabetic 5.7 - 6.4 % Diabetic >or= 6.5 % Please note range changes. Performed By: #### L 501.9989 ####[facility] [address] [place], [address] Internal Medicine Office Vis itoradha 10-19-2024 Internal Medicine Office Visit [facility] [place] [address] [place] [address] OFFICE VISIT Date of Service: 10/24/24 MR#: [id number] Acct: [id number] Name: JUSTINCARLA REBECCA Rep #: [id number] : 1970 Provider: Dr. Leah guadarrama MD Age/Sex: 54/F Location: [facility] Status: Signed Intake Vital Signs 04/20/24 07:28 08/29/24 19:22 10/24/24 07:33 Height 5 ft 8 in 5 ft 8 in 5 ft 8 in Weight: 222 lb BMI 33.7 BP 118/82 H Blood Pressure Location Lt brachial Position Sitting Respiration 14 Pulse 68 Pulse Source Monitor Temp 97.4 F L Temp Source Temporal Pulse Oximetry (%) 97 Oxygen Delivery Method room air Intake Visit Reasons: 6 M 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 Is patient in pain?: No Allergies No Known Allergies Allergy (Verified 10/24/24 07:29) Medications ???Medication ???Instructions ???Recorded ???Confirmed ???Type levalbuterol tartrate 45 2 inh inhalation Q6H #15 grams 01/06/22 10/24/24 Rx mcg/actuation aerosol inhaler cholecalciferol (vitamin D3) 25 25 mcg PO DAILY 09/01/22 10/24/24 History mcg (1,000 unit) capsule SEMAGLUTIDE subcut 05/25/24 10/24/24 History lisinopril 20 mg tablet See Rx Instructions .Route 05/25/24 10/24/24 Rx .COMPLEX #30 tabs semaglutide 0.25 mg or 0.5 mg (2 0.5 mg (0.736 mL) subcut QWEEK #3 06/22/24 10/24/24 Rx mg/3 mL) subcutaneous pen injector mL (Ozempic) cholecalciferol (vitamin D3) 1,250 1,250 mcg PO QWEEK #12 caps 07/14/24 10/24/24 Rx mcg (50,000 unit) capsule escitalopram oxalate 5 mg tablet 5 mg PO DAILY #90 tabs 08/08/24 10/24/24 Rx rosuvastatin 5 mg tablet 5 mg PO DAILY #90 tabs 10/02/24 10/24/24 Rx Nurse's Note: Declines flu vaccine. Wants to discuss stress results as she never heard back. [facility] Medical History Wears contact lenses Wears glasses History of IBS Non-smoker Shortness of breath on exertion Hypertension Sleep apnea Fatigue Throat tightness Difficulty swallowing Anxiety and depression Heart murmur Hyperlipidemia High blood pressure Frequent headaches Anemia Surgical History Hx of tubal ligation History of colonoscopy History of shoulder surgery History of excision of pilonidal cyst History of tonsillectomy and adenoidectomy History of loop electrosurgical excision procedure (LEEP) Family History Mother Anxiety Depression Breast cancer Father Cancer Melanoma Brother Cancer Hodgkin lymphoma Grandmother Breast cancer Social History (Updated 10/24/24 @ 07:[address] 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 She is up to date on her routine blood work and screening.??? She doesn't want a flu shot.??? The patient doesn't smoke and does not need refills today. She reports in the last month, she hasn't been doing great in terms of making healthy choices. She reports she hasn't been as active with the change in weather. The patient follows with pulmonology for her asthma, but only sees them as needed.??? She reports she rarely needs her rescue inhaler. She denies any recent flare ups. She hasn't been checking her blood pressure recently. She has been taking her medication as prescribed without problems and hasn't noticed any further palpitations. She reports she has cut back on her salt intake. The patient continues to do well on the lexapro for her mental health. She reports that her symptoms wax and wane but feels that with the cold weather, she feels more down/lethargic. She does occasionally miss a dose on the weekends and will notice it. She denies any thoughts of suicide. She reports she hasn't had any recent problems with migraines. She reports that she continues to do well with the semaglutide. She reports she stopped it for about a week due to nausea. She reports she has since resumed it. She states the nausea hasn't been as bad since restarting it. She still doesn't eat large portions, but, as above, hasn't made good choices recently. She reports her sciatic pain has been manageable. She reports it will flare up intermittently. She will take ibuprofen which usually helps. She was seen in the ED in (more content not included)... Normal [facility] Gallbladderon 08-30-2024 Gallbladder [facility] Services [address] [place], [place] [address] Gallbladder MR#: [id number] Acct: [id number] Name: CARLA ANDRESON Rep #: [id number] : 1970 F 54 From: Wilberto madrigal MD PCP: Dr. Leah Salvador MD Status: REG CLI Study: Gallbladder Date of Exam: 08/30/24 Exam# [id number] Ordering [place]: [place] [id number] STUDY: ABDOMINAL ULTRASOUND - RIGHT UPPER QUADRANT REASON FOR VISIT: Female, 54 years old Right upper quadrant pain, intolerance to greasy f -- Clinical Uribe sign TECHNIQUE: Ultrasound evaluation of the right upper quadrant was performed with real-time and static myers-scale imaging. TECHNICAL QUALITY: Adequate. COMPARISON: None. FINDINGS: Liver: The liver is mildly enlarged and measures 18.3 cm. There is increased echogenicity consistent with fatty infiltration. The bile ducts are within normal limits. There is hepatic color flow. The direction of portal flow is hepatopetal. There is no demonstrated mass lesion. Gallbladder: Normal distended gallbladder. The gallbladder wall measures 2.1 mm. There is a negative sonographic Uribe''s sign. There is no pericholecystic fluid. There are no gallstones. Common Bile Duct (C.B.D.): The common bile duct measures 3.5 mm. Pancreas: Normal size of the head, body and tail of the pancreas. There is increased echogenicity of the pancreas. There is no demonstrated pancreatic mass or cyst. Right Kidney: Normal size of the right kidney. The right kidney measures 11.8 cm x 5.3 cm x 4.3 cm. Normal renal cortex. The right cortex measures 1.1 cm. There is no demonstrated renal mass or cyst. There is no right hydronephrosis. US/Gallbladder IMPRESSION: Mild hepatomegaly and fatty infiltration of the liver. Electronically Signed: Wilberto Sommer MD at 12:56 EDT , CC: Dr. Leah Salvador MD; Dr. Cosmo Syed MD [employer]ite Countertop Installer: Signed Normal [facility] Basic Metabolic Profile (BMP )on 08-29-2024 BUN/CRE 10.7 RATIO Normal 10-20 [facility] Comment on above: Performed By: #### L 500.2500, L500.4050, L501.2450, L100.0100, L500.3400 ####[facility] [address] [place], [address] CA,Total 9.7 mg/dL Normal 8.5-10.1 [facility] Comment on above: Performed By: #### L 500.2500, L500.4050, L501.2450, L100.0100, L500.3400 ####[facility] [address] [place], [address] Chloride [Moles/Vol] 104 mmol/L Normal 98-107 [facility] Comment on above: Performed By: #### L 500.2500, L500.4050, L501.2450, L100.0100, L500.3400 ####[facility] [address] [place], [address] CO2 [Moles/Vol] 29.0 mmol/L Normal 21.0-32.0 [facility] Comment on above: Performed By: #### L 500.2500, L500.4050, L501.2450, L100.0100, L500.3400 ####[facility] [address] [place], [address] Creatinine [Mass/Vol] 0.75 mg/dL Normal 0.55-1.02 [facility] Comment on above: Result Comment: The validity of the calculated GFR GFRAA in patients over 70 years has not been determined. Clinical correlation is essential. Performed By: #### L 500.2500, L500.4050, L501.2450, L100.0100, L500.3400 ####[facility] [address] [place], [address] ECRCL 105.67 ml/min Normal [facility] Comment on above: Performed By: #### L 500.2500, L500.4050, L501.2450, L100.0100, L500.3400 ####[facility] [address] [place], [address] EST GFR - AA 104 mL/min Normal >60 [facility] Comment on above: Result Comment: Afri can Honduran GFR Calc Performed By: #### L 500.2500, L500.4050, L501.2450, L100.0100, L500.3400 ####[facility] [address] [place], [address] GAP 7 Normal 5-15 [facility] Comment on above: Performed By: #### L 500.2500, L500.4050, L501.2450, L100.0100, L500.3400 ####[facility] [address] [place], [address] GFR/1.73 sq M.predicted among non-blacks MDRD (S/P/Bld) [Vol rate/Area] 86 mL/min/{1.73_m2} Normal >60 [facility] Comment on above: Result Comment: Non- GFR Calc Performed By: #### L 500.2500, L500.4050, L501.2450, L100.0100, L500.3400 ####[facility] [address] [place], [address] Glucose [Mass/Vol] 119 mg/dL High 74-106 [facility] Comment on above: Result Comment: Fast ing Glucose result from 100 to 125 mg/dL suggests IMPAIRED HOMEOSTASIS per A.D.A. criteria. Performed By: #### L 500.2500, L500.4050, L501.2450, L100.0100, L500.3400 ####[facility] [address] [place], [address] Potassium [Moles/Vol] 3.8 mmol/L Normal 3.5-5.1 [facility] Comment on above: Performed By: #### L 500.2500, L500.4050, L501.2450, L100.0100, L500.3400 ####[facility] [address] [place], [address] Sodium [Moles/Vol] 140 mmol/L Normal 136-145 [facility] Comment on above: Performed By: #### L 500.2500, L500.4050, L501.2450, L100.0100, L500.3400 ####[facility] [address] [place], [address] Urea nitrogen [Mass/Vol] 8 mg/dL Normal 7-18 [facility] Comment on above: Performed By: #### L 500.2500, L500.4050, L501.2450, L100.0100, L500.3400 ####[facility] [address] [place], [address] CBC W/Diff, Automatedon 10-0 Absolute Lymph 4.33 X10 3/uL Normal 0.83-4.51 [facility] Comment on above: Performed By: #### L 500.2500, L500.4050, L501.2450, L100.0100, L500.3400 #### [facility] Laboratory [address] [place], [address] Absolute Neut 5.5 X10 3/uL Normal 2.0-7.7 [facility] Comment on above: Performed By: #### L 500.2500, L500.4050, L501.2450, L100.0100, L500.3400 #### [facility] Laboratory [address] [place], [address] Basophils/100 WBC (Bld) 0.6 % Normal 0-1 [facility] Comment on above: Performed By: #### L 500.2500, L500.4050, L501.2450, L100.0100, L500.3400 #### [facility] Laboratory [address] [place], [address] Eosinophils/100 WBC (Bld) 1.8 % Normal 0-5 [facility] Comment on above: Performed By: #### L 500.2500, L500.4050, L501.2450, L100.0100, L500.3400 #### [facility] Laboratory [address] [place], [address] Erythrocyte distribution width (RBC) [Ratio] 13.4 % Normal 11.6-14.6 [facility] Comment on above: Performed By: #### L 500.2500, L500.4050, L501.2450, L100.0100, L500.3400 #### [facility] Laboratory [address] [place], [address] Hematocrit (Bld) [Volume fraction] 39.7 % Normal 37-47 [facility] Comment on above: Performed By: #### L 500.2500, L500.4050, L501.2450, L100.0100, L500.3400 #### [facility] Laboratory [address] [place], [address] Hemoglobin (Bld) [Mass/Vol] 13.1 g/dL Normal 12.0-15.0 [facility] Comment on above: Performed By: #### L 500.2500, L500.4050, L501.2450, L100.0100, L500.3400 #### [facility] Laboratory [address] [place], [address] IG% 0.400 Normal 0.0-0.9 [facility] Comment on above: Result Comment: IG% - Immature Granulocytes (promyelocytes, myelocytes and metamyelocytes) > 1% indicates that a LEFT SHIFT is Present. Performed By: #### L 500.2500, L500.4050, L501.2450, L100.0100, L500.3400 #### [facility] Laboratory [address] [place], [address] Lymphocytes/100 WBC (Bld) 38.9 % Normal 19-41 [facility] Comment on above: Performed By: #### L 500.2500, L500.4050, L501.2450, L100.0100, L500.3400 #### [facility] Laboratory [address] [place], [address] MCH (RBC) [Entitic mass] 28.4 pg Normal 27.0-32.0 [facility] Comment on above: Performed By: #### L 500.2500, L500.4050, L501.2450, L100.0100, L500.3400 #### [facility] Laboratory [address] [place], [address] MCHC (RBC) [Mass/Vol] 33.0 g/dL Normal 32-36 [facility] Comment on above: Performed By: #### L 500.2500, L500.4050, L501.2450, L100.0100, L500.3400 #### [facility] Laboratory [address] [place], [address] MCV (RBC) [Entitic vol] 86.1 fL Normal 81-99 [facility] Comment on above: Performed By: #### L 500.2500, L500.4050, L501.2450, L100.0100, L500.3400 #### [facility] Laboratory [address] [place], [address] Monocytes/100 WBC (Bld) 8.8 % Normal 0-10 [facility] Comment on above: Performed By: #### L 500.2500, L500.4050, L501.2450, L100.0100, L500.3400 #### [facility] Laboratory [address] [place], [address] Neutrophils/100 WBC (Bld) 49.5 % Normal 47-70 [facility] Comment on above: Performed By: #### L 500.2500, L500.4050, L501.2450, L100.0100, L500.3400 #### [facility] Laboratory [address] [place], [address] Nucleated RBC (Bld) [#/Vol] 0 10*3/uL Normal 0-5 [facility] Comment on above: Performed By: #### L 500.2500, L500.4050, L501.2450, L100.0100, L500.3400 #### [facility] Laboratory [address] [place], [address] Platelet mean volume (Bld) [Entitic vol] 12.2 fL High 6.2-12.0 [facility] Comment on above: Performed By: #### L 500.2500, L500.4050, L501.2450, L100.0100, L500.3400 #### [facility] Laboratory [address] [place], [address] Platelets (Bld) [#/Vol] 238 10*3/uL Normal 150-450 [facility] Comment on above: Performed By: #### L 500.2500, L500.4050, L501.2450, L100.0100, L500.3400 #### [facility] Laboratory [address] [place], [address] RBC (Bld) [#/Vol] 4.61 10*6/uL Normal 4.2-5.4 [facility] Comment on above: Performed By: #### L 500.2500, L500.4050, L501.2450, L100.0100, L500.3400 #### [facility] Laboratory [address] [place], [address] RDW SD 42.0 fl Normal 35.1-43.9 [facility] Comment on above: Performed By: #### L 500.2500, L500.4050, L501.2450, L100.0100, L500.3400 #### [facility] Laboratory [address] [place], [address] WBC (Bld) [#/Vol] 11.1 10*3/uL High 4.4-11.0 [facility] Comment on above: Performed By: #### L 500.2500, L500.4050, L501.2450, L100.0100, L500.3400 #### [facility] Laboratory [address] [place], [address] Absolute Neut Normal 2.0-7.7 [facility] Comment on above: Result Comment: DUPL ICATE ORDER Performed By: #### L 100.0100 #### [facility] Laboratory [address] [place], [address] HCT Normal 37-47 [facility] Comment on above: Result Comment: DUPL ICATE ORDER Performed By: #### L 100.0100 #### [facility] Laboratory [address] [place], [address] HGB Normal 12.0-15.0 [facility] Comment on above: Result Comment: DUPL ICATE ORDER Performed By: #### L 100.0100 #### [facility] Laboratory [address] [place], [address] MCH Normal 27.0-32.0 [facility] Comment on above: Result Comment: DUPL ICATE ORDER Performed By: #### L 100.0100 #### [facility] Laboratory [address] [place], [address] MCHC Normal 32-36 [facility] Comment on above: Result Comment: DUPL ICATE ORDER Performed By: #### L 100.0100 #### [facility] Laboratory [address] [place], [address] MCV Normal 81-99 [facility] Comment on above: Result Comment: DUPL ICATE ORDER Performed By: #### L 100.0100 #### [facility] Laboratory [address] [place], [address] NEUT% Normal 47-70 [facility] Comment on above: Result Comment: DUPL ICATE ORDER Performed By: #### L 100.0100 #### [facility] Laboratory [address] [place], [address] PLT Normal 150-450 [facility] Comment on above: Result Comment: DUPL ICATE ORDER Performed By: #### L 100.0100 #### [facility] Laboratory [address] [place], [address] RBC Normal 4.2-5.4 [facility] Comment on above: Result Comment: DUPL ICATE ORDER Performed By: #### L 100.0100 #### [facility] Laboratory [address] [place], [address] RDW CV Normal 11.6-14.6 [facility] Comment on above: Result Comment: DUPL ICATE ORDER Performed By: #### L 100.0100 #### [facility] Laboratory [address] [place], [address] RDW SD Normal 35.1-43.9 [facility] Comment on above: Result Comment: DUPL ICATE ORDER Performed By: #### L 100.0100 #### [facility] Laboratory [address] [place], [address] WBC Normal 4.4-11.0 [facility] Comment on above: Result Comment: DUPL ICATE ORDER Performed By: #### L 100.0100 #### [facility] Laboratory [address] [place], [address] Comprehensive Metabolic Prof ilon 08-29-2024 Albumin/Globulin [Mass ratio] 0.9 {ratio} Normal 0.9-2.4 [facility] Comment on above: Performed By: #### L 500.2500, L500.4050, L501.2450, L100.0100, L500.3400 ####[facility] [address] [place], [address] Emergency Department Summary on 08-29-2024 Emergency Department Summary [facility] Medical Records Department [address] [place] [address] Emergency Department Summary 08/29/24 MR#: [id number] Acct: [id number] Name: CARLA ANDERSON Rep #: [id number] : 1970 54 From: Cosmo Syed MD PCP: Dr. Leah Salvador MD Status:REG ER Location: ED HPI History of Present Illness Chief Complaint: Abd Pain Detail of Chief Complaint: Patient has pain in the right flank area that wraps around anteriorly. Informant: patient Onset/Context/Timing Onset: Month(s) (Off-and-on for approximately 1 month) Context: Sudden Onset Timing: Intermittent Quality: Pain Location: Right flank radiating anteriorly Current Severity: Mild Maximum Severity: Moderate Worsened by: Possibly fried/greasy food Relieved by: Nothing Associated Symptoms Associated Symptoms: Nausea Narrative Narrative: Patient is a 54-year-old woman who presents with flank pain that radiates anteriorly. She is concerned this is her gallbladder. At approximately 1930 patient had serial and fried eggs for dinner. There is no known history of biliary disease. There is no family's. She denies history of renal or ureterolithiasis. She denies dysuria, frequency, urgency or hematuria. She denies cough, shortness of breath or sputum production. She denies history of VTE or any risk factors. There is no history of direct or indirect trauma. She has not noted a rash. Prior similar symptoms: No Recent Illness/Hospitalization : No [facility] Medical History Wears contact lenses Wears glasses History of IBS Non-smoker Shortness of breath on exertion Hypertension Sleep apnea Fatigue Throat tightness Difficulty swallowing Anxiety and depression Heart murmur Hyperlipidemia High blood pressure Frequent headaches Anemia Home Medications ???Medication ???Instructions ???Recorded ???Last Taken ???Type levalbuterol tartrate 45 2 inh inhalation Q6H #15 grams 01/06/22 Unknown Rx mcg/actuation aerosol inhaler cholecalciferol (vitamin D3) 25 25 mcg PO DAILY 09/01/22 Unknown History mcg (1,000 unit) capsule SEMAGLUTIDE subcut 05/25/24 Unknown History lisinopril 20 mg tablet See Rx Instructions .Route 05/25/24 Unknown Rx .COMPLEX #30 tabs semaglutide 0.25 mg or 0.5 mg (2 0.5 mg (0.736 mL) subcut QWEEK #3 06/22/24 Unknown Rx mg/3 mL) subcutaneous pen injector mL (Ozempic) rosuvastatin 5 mg tablet 5 mg PO DAILY #30 tabs 06/29/24 Unknown Rx cholecalciferol (vitamin D3) 1,250 1,250 mcg PO QWEEK #12 caps 07/14/24 Unknown Rx mcg (50,000 unit) capsule escitalopram oxalate 5 mg tablet 5 mg PO DAILY #90 tabs 08/08/24 Unknown Rx Allergy/AdvReac Type Severity Reaction Status Date / Time No Known Allergies Allergy Verified 08/29/24 19:23 Family History Mother Anxiety Depression Breast cancer Father Cancer Melanoma Brother Cancer Hodgkin lymphoma Grandmother Breast cancer Surgical History Hx of tubal ligation History of colonoscopy History of shoulder surgery History of excision of pilonidal cyst History of tonsillectomy and adenoidectomy History of loop electrosurgical excision procedure (LEEP) Social History household members: spouse current occupational status: employed 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 Smoking Status: Never smoker Electronic Cigarette Use: not used second hand exposure: No alcohol intake: current alcohol intake frequency: a few times a month substance use type: does not use caffeine: Yes (1 cup daily) Type: coffee what type of physical activity do you participate in: weight training frequency: 3-4 times per week do you feel safe at home: Yes ROS ROS ED Constitutional Constitutional ED: Denies chills, fever(s), subjective, sweats or weight loss Eyes Eyes: Denies blurry vision or change in vision ENT ENT ED: Denies ear pain, rhinorrhea or sore throat Cardiovascular Cardiovascular: Denies chest pain, palpitations or racing heartbeat Respiratory/Chest Respiratory/Chest: Denies cough, dyspnea or dyspnea on exertion Gastrointestinal Gastrointestinal: Reports abdominal pain; Denies constipation, diarrhea, melena or vomiting Genitourinary Genitourinary ED: Denies dysuria, hematuria or urinary frequency Musculoskeletal Musculoskeletal: Reports back pain; Denies arthralgias, myalgias or neck pain Hematologic/Lymphatic Hematologic/Lymphatic: Reports systems reviewed and no addt'l complaints, except as documented EXAM Physical Exam Const Vital Signs: 08/29/24 19:22 Temperature 97.6 F L Temperature Source Temporal Pulse Rate 77 Respiratory Rate 16 Blood Pre (more content not included)... Normal [facility] Lipaseon 08-29-2024 Lipase [Catalytic activity/Vol] 27 U/L Normal 13-75 [facility] Comment on above: Result Comment: Viri collins note: LIPASE revised reference range effective 23. New Lipase methodology. Expected to produce lower values than the previous assay method. NEW Reference Range: 13 - 75 U/L Performed By: #### L 500.2500, L500.4050, L501.2450, L100.0100, L500.3400 ####[facility] [address] [place], [address] Liver Profileon 08-29-2024 Albumin [Mass/Vol] 3.7 g/dL Normal 3.2-5.0 [facility] Comment on above: Performed By: #### L 500.2500, L500.4050, L501.2450, L100.0100, L500.3400 ####[facility] [address] [place], [address] ALK P 83 U/L Normal 45-117 [facility] Comment on above: Performed By: #### L 500.2500, L500.4050, L501.2450, L100.0100, L500.3400 ####[facility] [address] [place], [address] ALT [Catalytic activity/Vol] 15 U/L Normal 13-56 [facility] Comment on above: Performed By: #### L 500.2500, L500.4050, L501.2450, L100.0100, L500.3400 ####[facility] [address] [place], [address] AST [Catalytic activity/Vol] 11 U/L Low 15-37 [facility] Comment on above: Performed By: #### L 500.2500, L500.4050, L501.2450, L100.0100, L500.3400 ####[facility] [address] [place], [address] Bilirubin [Mass/Vol] 0.20 mg/dL Normal 0.20-1.00 [facility] Comment on above: Result Comment: For patients on eltrombopag therapy, use of Dimension [place] TBIL is not recommended. Performed By: #### L 500.2500, L500.4050, L501.2450, L100.0100, L500.3400 ####[facility] [address] [place], [address] D BILI < 0.05 Normal 0.00-0.30 [facility] Comment on above: Performed By: #### L 500.2500, L500.4050, L501.2450, L100.0100, L500.3400 ####[facility] [address] [place], [address] Globulin (S) [Mass/Vol] 4.1 g/dL Normal 2.2-4.2 [facility] Comment on above: Performed By: #### L 500.2500, L500.4050, L501.2450, L100.0100, L500.3400 ####[facility] [address] [place], [address] T PROT 7.8 g/dL Normal 6.4-8.2 [facility] Comment on above: Performed By: #### L 500.2500, L500.4050, L501.2450, L100.0100, L500.3400 ####[facility] [address] [place], [address] Urinalysis, Completeon 08-29 AMORPHOUS R Normal [facility] Comment on above: Order Comment: COLLE CTOR TO SPECIFY Performed By: #### L 400.0001 #### [facility] Laboratory [address] [place], [address] BACTERIA RARE Normal None Seen [facility] Comment on above: Order Comment: COLLE CTOR TO SPECIFY Performed By: #### L 400.0001 #### [facility] Laboratory [address] [place], [address] EPI,SQUAMOUS 0-5 SEEN Normal 5-10 [facility] Comment on above: Order Comment: COLLE CTOR TO SPECIFY Performed By: #### L 400.0001 #### [facility] Laboratory [address] [place], [address] WBC 5-10 SEEN Normal 0-5 [facility] Comment on above: Order Comment: JOANNE CTOR TO SPECIFY Performed By: #### L 400.0001 #### [facility] Laboratory [address] [place], [address] Mucus Ql (Urine sed) 0 SEEN Normal [facility] Comment on above: Order Comment: COLLE CTOR TO SPECIFY Performed By: #### L 400.0001 #### [facility] [address] [place], [address] RBC 0 SEEN Normal 0-5 [facility] Comment on above: Order Comment: COLLE CTOR TO SPECIFY Performed By: #### L 400.0001 #### [facility] Laboratory [address] [place], [address] BACTERIA Normal None Seen [facility] Comment on above: Order Comment: CLEAN CATCH Result Comment: DUPL ICATE ORDER Performed By: #### L 400.0001 #### [facility] [address] [place], [address] BILIRUBIN URINE Normal Negative [facility] Comment on above: Order Comment: CLEAN CATCH Result Comment: DUPL ICATE ORDER Performed By: #### L 400.0001 #### [facility] Laboratory [address] [place], [address] Clarity (U) Normal Clear [facility] Comment on above: Order Comment: CLEAN CATCH Result Comment: DUPL ICATE ORDER Performed By: #### L 400.0001 #### [facility] [address] [place], [address] Color (U) Normal Yellow [facility] Comment on above: Order Comment: CLEAN CATCH Result Comment: DUPL ICATE ORDER Performed By: #### L 400.0001 #### [facility] [address] [place], [address] EPI,SQUAMOUS Normal 5-10 [facility] Comment on above: Order Comment: CLEAN CATCH Result Comment: DUPL ICATE ORDER Performed By: #### L 400.0001 #### [facility] Laboratory [address] [place], [address] GLUCOSE, UR Normal Normal [facility] Comment on above: Order Comment: CLEAN CATCH Result Comment: DUPL ICATE ORDER Performed By: #### L 400.0001 #### [facility] [address] [place], [address] KETONE UR Normal Negative [facility] Comment on above: Order Comment: CLEAN CATCH Result Comment: DUPL ICATE ORDER Performed By: #### L 400.0001 #### [facility] [address] [place], [address] LEUK ESTERASE Normal Negative [facility] Comment on above: Order Comment: CLEAN CATCH Result Comment: DUPL ICATE ORDER Performed By: #### L 400.0001 #### [facility] [address] [place], [address] Mucus Ql (Urine sed) Normal [facility] Comment on above: Order Comment: CLEAN CATCH Result Comment: DUPL ICATE ORDER Performed By: #### L 400.0001 #### [facility] [address] [place], [address] Nitrite Ql (U) Normal Negative [facility] Comment on above: Order Comment: CLEAN CATCH Result Comment: DUPL ICATE ORDER Performed By: #### L 400.0001 #### [facility] [address] [place], [address] OCCULT BLOOD-UR Normal Negative [facility] Comment on above: Order Comment: CLEAN CATCH Result Comment: DUPL ICATE ORDER Performed By: #### L 400.0001 #### [facility] [address] [place], [address] pH UR Normal 5.0 - 8.0 [facility] Comment on above: Order Comment: CLEAN CATCH Result Comment: DUPL ICATE ORDER Performed By: #### L 400.0001 #### [facility] [address] [place], [address] PROT DIPSTX Normal Negative [facility] Comment on above: Order Comment: CLEAN CATCH Result Comment: DUPL ICATE ORDER Performed By: #### L 400.0001 #### [facility] Laboratory [address] [place], [address] RBC Normal 0-5 [facility] Comment on above: Order Comment: CLEAN CATCH Result Comment: DUPL ICATE ORDER Performed By: #### L 400.0001 #### [facility] [address] [place], [address] SP.GR. DIPSTX Normal 1.002-1.030 [facility] Comment on above: Order Comment: CLEAN CATCH Result Comment: DUPL ICATE ORDER Performed By: #### L 400.0001 #### [facility] Laboratory [address] [place], [address] UR Preservative Normal [facility] Comment on above: Order Comment: CLEAN CATCH Result Comment: DUPL ICATE ORDER Performed By: #### L 400.0001 #### [facility] Laboratory [address] [place], [address] UROBILI Normal Normal [facility] Comment on above: Order Comment: CLEAN CATCH Result Comment: DUPL ICATE ORDER Performed By: #### L 400.0001 #### [facility] Laboratory [address] [place], [address] WBC Normal 0-5 [facility] Comment on above: Order Comment: CLEAN CATCH Result Comment: DUPL ICATE ORDER Performed By: #### L 400.0001 #### [facility] Laboratory [address] [place], [address] Stress Reporton 08-10-2024 Stress Report [facility] [address] [place] [address] MR#: [id number] Acct: [id number] Name: CARLA ANDERSON Rep #: [id number] : 1970 54 From: Kathy Carter MD Primary Care: Dr. Leah Salvador MD Status: REG CLI Referring Dr: Dony Blank Sex: F C Stress Test Report Date: 08/10/2024 Procedure: Exercise tolerance test/imaging study Indications: Chest pain Consent: Per the patient Procedure: The patient exercised on a Isaiah protocol for 6 minutes and 30 seconds achieving a peak heart rate of 144 bpm (86% predicted maximal heart rate) with a peak blood pressure 168/80 mmHg and a peak MET capacity of 8.5 METs. The baseline ECG demonstrated sinus rhythm. The peak exercise ECG demonstrated no ischemic changes. Frequent PVCs noted with exercise and in recovery. The functional capacity was considered average. There was complaint of chest tightness with exercise. The examination was discontinued secondary to target heart rate being achieved and chest tightness. The patient was injected with 13.5 mCi of technetium 99m Cardiolite and subsequently rest SPECT Cardiolite nuclear imaging was obtained in the horizontal long, vertical long, and short axis views. Post-exercise, the patient was injected with 43.1 mCi of technetium 99m Cardiolite and subsequently stress SPECT Cardiolite nuclear imaging was obtained in the horizontal long, vertical long, and short axis views. A gated Cardiolite study at peak stress was obtained. Rest and stress SPECT Cardiolite nuclear imaging status post realignment, normalization, and attenuation correction, demonstrates mild reversible perfusion defect of the apex and septum. There is end systolic thickening and brightening. The gated Cardiolite study demonstrates myocardial thickening and inward wall motion. The reported LVEF is 77%. Impression: 1. Technically adequate (percent predicted maximal heart rate greater than 85%) exercise tolerance test 2. Peak exercise ECG with no ischemic changes 3. Frequent PVCs noted with exercise and in recovery 4. Rest and stress SPECT Cardiolite nuclear imaging demonstrate mildly reversible perfusion defect of the apex and septum, suggestive of ischemia. 5. The gated Cardiolite study reports an LVEF of 77%. This note was generated with [employer] software. It may contain incorrect words, spelling, and punctuation that were not noted in checking the note before signing. 08/10/24 1412 Date Kathy Carter MD CC: Dr. 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, [address] CBC W/Diff, Automatedon 08 Absolute Lymph 2.97 X10 3/uL Normal 0.83-4.51 [facility] Comment on above: Performed By: #### L 500.4050, L500.4100, L506.1000, L100.0100, L3100.5450 ####[facility] [address] [place], [address] Absolute Neut 3.0 X10 3/uL Normal 2.0-7.7 [facility] Comment on above: Performed By: #### L 500.4050, L500.4100, L506.1000, L100.0100, L3100.5450 ####[facility] [address] [place], [address] Basophils/100 WBC (Bld) 0.8 % Normal 0-1 [facility] Comment on above: Performed By: #### L 500.4050, L500.4100, L506.1000, L100.0100, L3100.5450 ####[facility] [address] [place], [address] Eosinophils/100 WBC (Bld) 1.7 % Normal 0-5 [facility] Comment on above: Performed By: #### L 500.4050, L500.4100, L506.1000, L100.0100, L3100.5450 ####[facility] [address] [place], [address] Erythrocyte distribution width (RBC) [Ratio] 13.2 % Normal 11.6-14.6 [facility] Comment on above: Performed By: #### L 500.4050, L500.4100, L506.1000, L100.0100, L3100.5450 ####[facility] [address] [place], [address] Hematocrit (Bld) [Volume fraction] 44.9 % Normal 37-47 [facility] Comment on above: Performed By: #### L 500.4050, L500.4100, L506.1000, L100.0100, L3100.5450 ####[facility] [address] [place], [address] Hemoglobin (Bld) [Mass/Vol] 14.6 g/dL Normal 12.0-15.0 [facility] Comment on above: Performed By: #### L 500.4050, L500.4100, L506.1000, L100.0100, L3100.5450 ####[facility] [address] [place], [address] IG% 0.300 Normal 0.0-0.9 [facility] Comment on above: Result Comment: IG% - Immature Granulocytes (promyelocytes, myelocytes and metamyelocytes) > 1% indicates that a LEFT SHIFT is Present. Performed By: #### L 500.4050, L500.4100, L506.1000, L100.0100, L3100.5450 ####[facility] [address] [place], [address] Lymphocytes/100 WBC (Bld) 44.7 % High 19-41 [facility] Comment on above: Performed By: #### L 500.4050, L500.4100, L506.1000, L100.0100, L3100.5450 ####[facility] [address] [place], [address] MCH (RBC) [Entitic mass] 27.6 pg Normal 27.0-32.0 [facility] Comment on above: Performed By: #### L 500.4050, L500.4100, L506.1000, L100.0100, L3100.5450 ####[facility] [address] [place], [address] MCHC (RBC) [Mass/Vol] 32.5 g/dL Normal 32-36 [facility] Comment on above: Performed By: #### L 500.4050, L500.4100, L506.1000, L100.0100, L3100.5450 ####[facility] [address] [place], [address] MCV (RBC) [Entitic vol] 84.9 fL Normal 81-99 [facility] Comment on above: Performed By: #### L 500.4050, L500.4100, L506.1000, L100.0100, L3100.5450 ####[facility] [address] [place], [address] Monocytes/100 WBC (Bld) 7.2 % Normal 0-10 [facility] Comment on above: Performed By: #### L 500.4050, L500.4100, L506.1000, L100.0100, L3100.5450 ####[facility] [address] [place], [address] Neutrophils/100 WBC (Bld) 45.3 % Low 47-70 [facility] Comment on above: Performed By: #### L 500.4050, L500.4100, L506.1000, L100.0100, L3100.5450 ####[facility] [address] [place], [address] Nucleated RBC (Bld) [#/Vol] 0 10*3/uL Normal 0-5 [facility] Comment on above: Performed By: #### L 500.4050, L500.4100, L506.1000, L100.0100, L3100.5450 ####[facility] [address] [place], [address] Platelet mean volume (Bld) [Entitic vol] 13.1 fL High 6.2-12.0 [facility] Comment on above: Performed By: #### L 500.4050, L500.4100, L506.1000, L100.0100, L3100.5450 ####[facility] [address] [place], [address] Platelets (Bld) [#/Vol] 246 10*3/uL Normal 150-450 [facility] Comment on above: Performed By: #### L 500.4050, L500.4100, L506.1000, L100.0100, L3100.5450 ####[facility] [address] [place], [address] RBC (Bld) [#/Vol] 5.29 10*6/uL Normal 4.2-5.4 [facility] Comment on above: Performed By: #### L 500.4050, L500.4100, L506.1000, L100.0100, L3100.5450 ####[facility] [address] [place], [address] RDW SD 41.0 fl Normal 35.1-43.9 [facility] Comment on above: Performed By: #### L 500.4050, L500.4100, L506.1000, L100.0100, L3100.5450 ####[facility] [address] [place], [address] WBC (Bld) [#/Vol] 6.7 10*3/uL Normal 4.4-11.0 [facility] Comment on above: Performed By: #### L 500.4050, L500.4100, L506.1000, L100.0100, L3100.5450 ####[facility] [address] [place], [address] [facility] Albumin [Mass/Vol] 3.9 g/dL Normal 3.2-5.0 [facility] Comment on above: Performed By: #### L 500.4050, L500.4100, L506.1000, L100.0100, L3100.5450 ####[facility] [address] [place], [address] Albumin/Globulin [Mass ratio] 0.9 {ratio} Normal 0.9-2.4 [facility] Comment on above: Performed By: #### L 500.4050, L500.4100, L506.1000, L100.0100, L3100.5450 ####[facility] [address] [place], [address] ALK P 97 U/L Normal 45-117 [facility] Comment on above: Performed By: #### L 500.4050, L500.4100, L506.1000, L100.0100, L3100.5450 ####[facility] [address] [place], [address] ALT [Catalytic activity/Vol] 21 U/L Normal 13-56 [facility] Comment on above: Performed By: #### L 500.4050, L500.4100, L506.1000, L100.0100, L3100.5450 ####[facility] [address] [place], [address] AST [Catalytic activity/Vol] 15 U/L Normal 15-37 [facility] Comment on above: Performed By: #### L 500.4050, L500.4100, L506.1000, L100.0100, L3100.5450 ####[facility] [address] [place], [address] Bilirubin [Mass/Vol] 0.40 mg/dL Normal 0.20-1.00 [facility] Comment on above: Result Comment: For patients on eltrombopag therapy, use of Dimension [place] TBIL is not recommended. Performed By: #### L 500.4050, L500.4100, L506.1000, L100.0100, L3100.5450 ####[facility] [address] [place], [address] BUN/CRE 15.5 RATIO Normal 10-20 [facility] Comment on above: Performed By: #### L 500.4050, L500.4100, L506.1000, L100.0100, L3100.5450 ####[facility] [address] [place], [address] CA,Total 9.5 mg/dL Normal 8.5-10.1 [facility] Comment on above: Performed By: #### L 500.4050, L500.4100, L506.1000, L100.0100, L3100.5450 ####[facility] [address] [place], [address] Chloride [Moles/Vol] 105 mmol/L Normal 98-107 [facility] Comment on above: Performed By: #### L 500.4050, L500.4100, L506.1000, L100.0100, L3100.5450 ####[facility] [address] [place], [address] CO2 [Moles/Vol] 28.0 mmol/L Normal 21.0-32.0 [facility] Comment on above: Performed By: #### L 500.4050, L500.4100, L506.1000, L100.0100, L3100.5450 ####[facility] [address] [place], [address] Creatinine [Mass/Vol] 0.71 mg/dL Normal 0.55-1.02 [facility] Comment on above: Result Comment: The validity of the calculated GFR GFRAA in patients over 70 years has not been determined. Clinical correlation is essential. Performed By: #### L 500.4050, L500.4100, L506.1000, L100.0100, L3100.5450 ####[facility] [address] [place], [address] EST GFR - AA 111 mL/min Normal >60 [facility] Comment on above: Result Comment: Afri can [place] GFR Calc Performed By: #### L 500.4050, L500.4100, L506.1000, L100.0100, L3100.5450 ####[facility] [address] [place], [address] GAP 6 Normal 5-15 [facility] Comment on above: Performed By: #### L 500.4050, L500.4100, L506.1000, L100.0100, L3100.5450 ####[facility] [address] [place], [address] GFR/1.73 sq M.predicted among non-blacks MDRD (S/P/Bld) [Vol rate/Area] 91 mL/min/{1.73_m2} Normal >60 [facility] Comment on above: Result Comment: Non- GFR Calc Performed By: #### L 500.4050, L500.4100, L506.1000, L100.0100, L3100.5450 ####[facility] [address] [place], [address] Globulin (S) [Mass/Vol] 4.4 g/dL High 2.2-4.2 [facility] Comment on above: Performed By: #### L 500.4050, L500.4100, L506.1000, L100.0100, L3100.5450 ####[facility] [address] [place], [address] Glucose [Mass/Vol] 91 mg/dL Normal 74-106 [facility] Comment on above: Performed By: #### L 500.4050, L500.4100, L506.1000, L100.0100, L3100.5450 ####[facility] [address] [place], [address] Potassium [Moles/Vol] 4.2 mmol/L Normal 3.5-5.1 [facility] Comment on above: Performed By: #### L 500.4050, L500.4100, L506.1000, L100.0100, L3100.5450 ####[facility] [address] [place], [address] Sodium [Moles/Vol] 139 mmol/L Normal 136-145 [facility] Comment on above: Performed By: #### L 500.4050, L500.4100, L506.1000, L100.0100, L3100.5450 ####[facility] [address] [place], [address] T PROT 8.3 g/dL High 6.4-8.2 [facility] Comment on above: Performed By: #### L 500.4050, L500.4100, L506.1000, L100.0100, L3100.5450 ####[facility] [address] [place], [address] Urea nitrogen [Mass/Vol] 11 mg/dL Normal 7-18 [facility] Comment on above: Performed By: #### L 500.4050, L500.4100, L506.1000, L100.0100, L3100.5450 ####[facility] [address] [place], [address] Internal Medicine Office Vis iton 06-29-2024 Internal Medicine Office Visit [facility] [address] [place] [address] [place] [address] OFFICE VISIT Date of Service: 06/29/24 MR#: [id number] Acct: [id number] Name: CARLA ANDERSON Rep #: [id number] : 1970 Provider: NELSON Giraldo Age/Sex: 54/F Location: [facility] Status: Signed Intake Vital Signs 05/25/24 09:33 06/29/24 09:41 Height 5 ft 8 in 5 ft 8 in Weight: 226 lb 219 lb 2 oz BMI 34.3 33.3 BP 118/88 H 122/70 H Blood Pressure Location Lt brachial Lt brachial Position Sitting Sitting Respiration 16 18 Pulse 68 71 Pulse Source Monitor Monitor Temp 98.4 F 97.0 F L Temp Source Temporal Temporal Pulse Oximetry (%) 98 98 Oxygen Delivery Method room air room air Intake Visit Reasons: 1 M FU Chief Complaint: 1 m 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 Accompanied by: Self Is patient in pain?: No Allergies No Known Allergies Allergy (Verified 06/29/24 09:38) Medications ???Medication ???Instructions ???Recorded ???Confirmed ???Type levalbuterol tartrate 45 2 inh inhalation Q6H #15 grams 01/06/22 06/29/24 Rx mcg/actuation aerosol inhaler cholecalciferol (vitamin D3) 25 25 mcg PO DAILY 09/01/22 06/29/24 History mcg (1,000 unit) capsule SEMAGLUTIDE subcut 05/25/24 06/29/24 History escitalopram oxalate 5 mg tablet 5 mg PO DAILY #30 tabs 05/25/24 06/29/24 Rx lisinopril 20 mg tablet See Rx Instructions .Route 05/25/24 06/29/24 Rx .COMPLEX #30 tabs cholecalciferol (vitamin D3) 1,250 1,250 mcg PO QWEEK #8 caps 06/21/24 06/29/24 Rx mcg (50,000 unit) capsule semaglutide 0.25 mg or 0.5 mg (2 0.5 mg (0.736 mL) subcut QWEEK #3 06/22/24 06/29/24 Rx mg/3 mL) subcutaneous pen injector mL (Ozempic) rosuvastatin 5 mg tablet 5 mg PO DAILY #30 tabs 06/29/24 Rx PFSH Medical History Wears contact lenses Wears glasses History of IBS Non-smoker Shortness of breath on exertion Hypertension Sleep apnea Fatigue Throat tightness Difficulty swallowing Anxiety and depression Heart murmur Hyperlipidemia High blood pressure Frequent headaches Anemia Surgical History Hx of tubal ligation History of colonoscopy History of shoulder surgery History of excision of pilonidal cyst History of tonsillectomy and adenoidectomy History of loop electrosurgical excision procedure (LEEP) Family History Mother Anxiety Depression Breast cancer Father Cancer Melanoma Brother Cancer Hodgkin lymphoma Grandmother Breast cancer Social History household members: spouse current occupational status: employed 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 She states that she overall has been tolerating the medication. She did notice a little bit of nausea when she increased from the 0.25mg to the 0.5mg at the same time has not had any vomiting at this dose. She does think that she has noticed a little bit of muscle aches / pains even a little cramping of the muscles at times. She does get a lot of exercise although she has been trying to be more active then she was (walking her dog, using stairs instead of elevator, parking further away). She has continued to work on her diet trying to make small changes in the types of foods she eats. She has not had any issues with her BP. She periodically checks it and her numbers have been great. She takes her meds regularly without any side effects or evidence of intolerance. She has continued taking the LExapro as directed stating that this still working well for her. She started this medication for a year or two. This is something that she definitely wants to continue at this time. ROS Const Constitutional: No body ache, chills, excessive sweating, fatigue, fever(s), frequent falls, headache(s), snoring, weakness or change in appetite Eyes Eyes: No blurry vision, change in vision, eye pain or Light sensitivity ENT ENT: No abnormal hearing, ear or mastoid pain, tinnitus, nasal congestion, headache(s), neck pain or sore throat Resp Respiratory: No cough, shortness of breath, snoring or wheezing Cardio Cardiology: No chest pain at rest, chest pain with (more content not included)... Normal [facility] Lipid Profileon 06-29-2024 Cholesterol [Mass/Vol] 240 mg/dL High 200 [facility] Comment on above: Result Comment: <200 mg/dL Desirable 200-240 mg/dL Borderline >240 mg/dL High Risk Performed By: #### L 500.4050, L500.4100, L506.1000, L100.0100, L3100.5450 ####[facility] [address] [place], [address] Cholesterol in HDL [Mass/Vol] 45 mg/dL Normal [facility] Comment on above: Result Comment: The drugs N-Acetylcysteine and Metamizole may falsely depress this assay. Reference Range HDL <40 mg/dL Low HDL Cholesterol HDL >or= 60 mg/dL High HDL Cholesterol Performed By: #### L 500.4050, L500.4100, L506.1000, L100.0100, L3100.5450 ####[facility] [id number] [place], [address] Cholesterol in LDL [Mass/Vol] 153 mg/dL High 0-130 [facility] Comment on above: Performed By: #### L 500.4050, L500.4100, L506.1000, L100.0100, L3100.5450 ####[facility] [address] [place], [address] Cholesterol in VLDL [Mass/Vol] 42 mg/dL High 5-40 [facility] Comment on above: Performed By: #### L 500.4050, L500.4100, L506.1000, L100.0100, L3100.5450 ####[facility] [address] [place], [address] Triglyceride [Mass/Vol] 209 mg/dL High [facility] Comment on above: Result Comment: The drugs N-Acetylcysteine and Metamizole may falsely depress this assay. Serum Triglycerides Reference Interval Normal <150 mg/dL Borderline high 150 - 199 mg/dL High 200 - 499 mg/dL Very High > or = 500 mg/dL Performed By: #### L 500.4050, L500.4100, L506.1000, L100.0100, L3100.5450 ####[facility] [address] [place], [address] Vitamin D,25 Hydroxyon 06-29 Vitamin D 25-OH 62.7 ng/mL Normal [facility] Comment on above: Result Comment: Alvina min D 25(OH) Status Range Deficiency <20 ng/mL (50nmol/L) Insufficiency 20 - 30 ng/mL (50 - 75 nmol/L) Sufficiency 30 - 100 ng/mL (75 - 250 nmol/L) Toxicity >100 ng/mL (>250 nmol/L) Performed By: #### L 500.4050, L500.4100, L506.1000, L100.0100, L3100.5450 ####[facility] [address] [place], [place], [address] Thyroidon 06-13-2024 Thyroid [facility] Imaging Services [address] [place] [address] Thyroid MR#: [id number] Acct: [id number] Name: CARLA ANDERSON Rep #: [id number] : 1970 F 54 From: Wilberto madrigal MD PCP: Dr. Leah Salvador MD Status: REG CLI Study: Thyroid Date of Exam: 06/13/24 Exam# [id number] Ordering Dr: [place] [id number] STUDY: THYROID ULTRASOUND REASON FOR EXAM: Female, 54 years old. Thyroid nodules TECHNIQUE: Ultrasound evaluation of the thyroid was performed with real-time and static myers-scale imaging. COMPARISON: Comparison is made with prior study dated December 09, 2021. FINDINGS: RIGHT LOBE: The right lobe of the thyroid gland measures 4.9 cm x 1.8 cm x 2.5 cm. There is a heterogeneous echotexture. Multiple small hypoechoic nodules are seen scattered throughout the right lobe. The largest nodule measures 1 cm x 0.9 cm x 0.6 cm. This is unchanged. LEFT LOBE: The left lobe of the thyroid gland measures 4.9 cm x 1.8 cm x 1.8 cm. There is a heterogeneous echotexture. Multiple hypoechoic solid nodules are seen. The largest measures 8 mm x 8 mm x 6 mm. This has decreased in size as compared to prior study. ISTHMUS: The isthmus measures 3 mm. The regional lymph nodes are normal. US/Thyroid IMPRESSION: Heterogeneous appearance of both lobes of the thyroid gland. Multiple small hypoechoic solid nodule seen throughout both lobes. Essentially unchanged. Electronically Signed: Wilberto Sommer MD at 12:39 EDT , CC: Dr. 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 Leah guadarrama MD Age/Sex: 53/F Location: [facility] Status: Signed Intake Vital Signs 04/20/24 07:28 05/25/24 09:33 Height 5 ft 8 in 5 ft 8 in Weight: 226 lb BMI 34.3 BP 118/88 H Blood Pressure Location Lt brachial Position Sitting Respiration 16 Pulse 68 Pulse Source Monitor Temp 98.4 F Temp Source Temporal Pulse Oximetry (%) 98 Oxygen Delivery Method room air Intake Visit Reasons: 4 WK FU Chief Complaint: 4 WK FU Is patient in pain?: No Allergies No Known Allergies Allergy (Verified 05/25/24 09:28) Medications ???Medication ???Instructions ???Recorded ???Confirmed ???Type levalbuterol tartrate 45 2 inh inhalation Q6H #15 grams 01/06/22 04/20/24 Rx mcg/actuation aerosol inhaler cholecalciferol (vitamin D3) 25 25 mcg PO DAILY 09/01/22 05/25/24 History mcg (1,000 unit) capsule cholecalciferol (vitamin D3) 1,250 1,250 mcg PO QWEEK #8 caps 04/28/24 05/25/24 Rx mcg (50,000 unit) capsule SEMAGLUTIDE subcut 05/25/24 History escitalopram oxalate 5 mg tablet 5 mg PO DAILY #30 tabs 05/25/24 05/25/24 Rx lisinopril 20 mg tablet See Rx Instructions .Route 05/25/24 05/25/24 Rx .COMPLEX #30 tabs semaglutide 0.25 mg or 0.5 mg (2 0.25 mg (0.368 mL) subcut QWEEK #3 05/25/24 05/25/24 Rx mg/3 mL) subcutaneous pen injector mL (Ozempic) Have you fallen in the past year?: No PFSH Medical History Wears contact lenses Wears glasses History of IBS Non-smoker Shortness of breath on exertion Hypertension Sleep apnea Fatigue Throat tightness Difficulty swallowing Anxiety and depression Heart murmur Hyperlipidemia High blood pressure Frequent headaches Anemia Surgical History Hx of tubal ligation History of colonoscopy History of shoulder surgery History of excision of pilonidal cyst History of tonsillectomy and adenoidectomy History of loop electrosurgical excision procedure (LEEP) Family History Mother Anxiety Depression Breast cancer Father Cancer Melanoma Brother Cancer Hodgkin lymphoma Grandmother Breast cancer Social History household members: spouse current occupational status: employed 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 She is up to date on her routine blood work and screening.??? She previously declined her shingles vaccines.??? The patient doesn't smoke and does need refills today. She reports she has been doing better in terms of eating healthy and increasing her activity. The patient follows with pulmonology for her asthma, but only sees them as needed.??? She reports she is using her inhaler as prescribed. She does rinse her mouth out after use.??? She reports she rarely needs her rescue inhaler. She denies any recent flare ups. She hasn't been checking her blood pressure recently. She has been taking her medication as prescribed without problems and hasn't noticed any further palpitations. She reports she has cut back on her salt intake. At her last office visit, she continued to complain of fatigue. Her vitamin D level was checked and found to be low and she was started on high dose replacement. A sleep study was also completed, but she did not meet criteria for sleep apnea. She reports that she doesn't feel as sleepy/exhausted. The patient continues to do well on the Metropiaapro for her mental health. She reports that her symptoms wax and wane. She denies any problems with depression/anxiety. She denies any thoughts of suicide. She reports she hasn't had any recent problems with migraines. At her last office visit, she continued to have concerns about her weight. Diet and exercise were discussed and she was started on a course of semaglutide. She reports that she has been doing well with it. She reports she doesn't feel focused on food. She reports she is trying to walk more and feels that she is making better choices. She reports she has been doing better in terms of portions as w (more content not included)... Normal [facility] Hemoglobin A1con 04-28-2024 HbA1c (Bld) [Mass fraction] 6.6 % High 3.8-5.6 [facility] Comment on above: Result Comment: Norm al < 5.7 % Prediabetic 5.7 - 6.4 % Diabetic >or= 6.5 % Please note range changes. Performed By: #### L 506.1000, L501.9985 ####[facility] [address] [place], [place], [address] Vitamin D,25 Hydroxyon 04-28 Vitamin D 25-OH 14.8 ng/mL Normal [facility] Comment on above: Result Comment: Alvina min D 25(OH) Status Range Deficiency <20 ng/mL (50nmol/L) Insufficiency 20 - 30 ng/mL (50 - 75 nmol/L) Sufficiency 30 - 100 ng/mL (75 - 250 nmol/L) Toxicity >100 ng/mL (>250 nmol/L) Performed By: #### L 506.1000, L501.9985 ####[facility] [address] [place], [address] SCRN MAMM (CAD)W/JOCY BILATo n 04-26-2024 SCRN MAMM (CAD)W/JOCY BILAT [facility] Imaging Services [address] [place] [address] SCRN MAMM (CAD)W/JOCY BILAT MR#: [id number] Acct: [id number] Name: CARLA ANDERSON Rep #: [id number] : 1970 F 53 From: Wilberto madrigal MD PCP: Dr. Leah Salvador MD Status: [facility] Study: SCRN MAMM (CAD)W/JOCY BILAT Date of Exam: 03/16 Exam# [id number] Ordering [place]: [place] [id number] MAMMOGRAPHY - BILATERAL SCREENING REASON FOR EXAM: Female, 53 years old. Routine annual screening examination. PERTINENT HISTORY: Mother with breast cancer. Grandmother with breast cancer. TECHNIQUE: Digital bilateral breast jocy (3D mammographic acquisition) in the CC and MLO projections. 2-D mediolateral oblique (MLO) and craniocaudad (CC) views of both breasts were obtained. CAD: Full Field Digital Mammography with Computer Added Detection was performed. COMPARISON: Comparison is made with prior study April 08, 2022 and March 14, 2021. FINDINGS: Breast Composition: There are scattered areas of fibroglandular density. There are no dominant masses or suspicious calcifications. Stable 7 mm x 6 mm well-defined nodule in the superior retroareolar region of the left breast. This was demonstrated to be a cyst on prior sonogram. Stable small benign-appearing bilateral axillary lymph nodes. No other significant abnormalities are identified. There has been no significant change since the prior study. BI/SCRN MAMM (CAD)W/JOCY BILAT IMPRESSION: Stable bilateral screening mammogram. Yearly follow-up mammogram recommended. (A) ASSESSMENT CATEGORY: BIRADS Category 2: Benign. A letter regarding these results will be sent to the patient by the facility within 30 days. Approximately 10% of breast cancers are not detected by mammography. A normal mammogram should not delay biopsy of a clinically suspicious abnormality. [id number] Electronically Signed: Wilberto Sommer MD at 8:39 EDT , CC: Dr. 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 Normal [facility] Absolute lymphocyte countOrd ered By: Dony Blank on 02-24-2024 Lymphocytes Auto (Unsp spec) [#/Vol] 1.09 10*3/uL 0.83-4.51 [facility] Automated lymphocyte count a s percentage of total leukocytesOrdered By: Dony Blank on 02-24-2024 Lymphocytes/100 WBC Auto (Unsp spec) 16.1 % 19-41 [facility] Basophil percentageOrdered B y: Dony Blank on 02-24-2024 Basophils/100 WBC (Bld) 0.7 % 0-1 [facility] Bilirubin [Mass/Vol] 0.20 mg/dL 0.20-1.00 [facility] Comment on above: For patients on eltr ombopag therapy, use of Dimension [place] TBIL is not recommended. Chloride [Moles/Vol] 103 mmol/L 98-107 [facility] Eosinophils/100 WBC (Bld) 1.6 % 0-5 [facility] Glucose [Mass/Vol] 146 mg/dL 74-106 [facility] Comment on above: Fasting Glucose resu lt greater than or equal to 126 mg/dL suggests DIABETES MELLITUS per A.D.A. criteria. Hemoglobin (Bld) [Mass/Vol] 13.5 g/dL 12.0-15.0 [facility] Monocytes/100 WBC (Bld) 12.1 % 0-10 [facility] Neutrophils (Bld) [#/Vol] 4.7 10*3/uL 2.0-7.7 [facility] Neutrophils/100 WBC (Bld) 69.2 % 47-70 [facility] Potassium [Moles/Vol] 4.0 mmol/L 3.5-5.1 [facility] Protein [Mass/Vol] 7.8 g/dL 6.4-8.2 [facility] Sodium [Moles/Vol] 137 mmol/L 136-145 [facility] WBC (Bld) [#/Vol] 6.8 10*3/uL 4.4-11.0 [facility] Determination of erythrocyte mean corpuscular volume (MCV)Ordered By: Dony Blank on 02-24-2024 MCV (RBC) [Entitic vol] 84.9 fL 81-99 [facility] Erythrocyte distribution wid th ratioOrdered By: Dony Blank on 02-24-2024 Erythrocyte distribution width (RBC) [Ratio] 13.2 % 11.6-14.6 [facility] Erythrocyte distribution wid th standard deviationOrdered By: Dony Blank on 02-24-2024 Erythrocyte distribution width (RBC) [Entitic vol] 41.3 fL 35.1-43.9 [facility] Hematocrit Auto (Bld) [Volum e fraction]Ordered By: Dony Blank on 02-24-2024 Hematocrit (Bld) [Volume fraction] 40.9 % 37-47 [facility] Immature granulocytes/100 WB C Auto (Bld)Ordered By: Dony Blank on 02-24-2024 Immature granulocytes/100 WBC (Bld) 0.300 % 0.0-0.9 [facility] Comment on above: IG% - Immature Granu locytes (promyelocytes, myelocytes and metamyelocytes) > 1% indicates that a LEFT SHIFT is Present. Laboratory - Chemistry and C hemistry - challengeOrdered By: Dony Blank on 02-24-2024 Albumin/Globulin [Mass ratio] 0.8 {ratio} 0.9-2.4 [facility] ALP [Catalytic activity/Vol] 93 U/L 45-117 [facility] ALT [Catalytic activity/Vol] 52 U/L 13-56 [facility] CO2 [Moles/Vol] 28.0 mmol/L 21.0-32.0 [facility] Globulin (S) [Mass/Vol] 4.3 g/dL 2.2-4.2 [facility] Urea nitrogen/Creatinine [Mass ratio] 11.5 mg/mg 10-20 [facility] Laboratory - Hematology and Cell countsOrdered By: Dony Blank on 02-24-2024 MCH (RBC) [Entitic mass] 28.0 pg 27.0-32.0 [facility] MCHC (RBC) [Mass/Vol] 33.0 g/dL 32-36 [facility] Nucleated RBC/100 WBC (Bld) [Ratio] 0 % 0-5 [facility] Platelet mean volume (Bld) [Entitic vol] 12.7 fL 6.2-12.0 [facility] Platelets (Bld) [#/Vol] 219 10*3/uL 150-450 [facility] No Panel InformationOrdered By: Dony Blank on 02-24-2024 Estimated GFR (MDRD) Amer 132 mL/min >60 [facility] Comment on above: GFR Calc Estimated GFR (MDRD) Non-Af Amer 109 mL/min >60 [facility] Comment on above: Non- GFR Calc Troponin I High Sensitivity 4 pg/mL 3.0-54.0 [facility] Comment on above: Please Note: New Amparo t Units and Gender Specific Reference Ranges. For more information see Policy Stat Procedure [place] High Sensitivity Troponin (TNIH) and attachments. RBC Auto (Bld) [#/Vol]Ordere d By: Dony Blank on 02-24-2024 RBC (Bld) [#/Vol] 4.82 10*6/uL 4.2-5.4 [facility] Serum or plasma calcium estefania urement (mass/volume)Ordered By: Dony Blank on 02-24-2024 Calcium [Mass/Vol] 8.8 mg/dL 8.5-10.1 [facility] Serum or plasma creatinine m easurement (mass/volume)Ordered By: Dony Blank on 02-24-2024 Creatinine [Mass/Vol] 0.61 mg/dL 0.55-1.02 [facility] Comment on above: The validity of the calculated GFR & GFRAA in patients over 70 years has not been determined. Clinical correlation is essential. Serum or plasma thyroid stim ulating hormone (TSH) measurement (units/volume)Ordered By: Dony Blank on 02-24-2024 TSH Qn 1.15 uIU/mL 0.358-3.74 [facility] Serum or plasma urea nitroge n measurement (mass/volume)Ordered By: Dony Blank on 02-24-2024 Urea nitrogen [Mass/Vol] 7 mg/dL 7-18 [facility] Thin prep Papanicolaou smear with manual screeningOrdered By: Dony Blank on 02-24-2024 Thin prep Papanicolaou smear with manual screening 3.5 g/dL 3.2-5.0 [facility] Thin prep Papanicolaou smear with manual screening 45 U/L 15-37 [facility] Thin prep Papanicolaou smear with manual screening 6 5-15 [facility] Whole blood hemoglobin A1c/t otal hemoglobin ratio (mass fraction)Ordered By: Leah Salvador on 09-21-2023 HbA1c (Bld) [Mass fraction] 6.2 % 3.8-5.6 [facility] Comment on above: Normal < 5.7 % Predi abetic 5.7 - 6.4 % Diabetic >or= 6.5 % Please note range changes. Basophil percentageOrdered B y: HEALTH ASSESSMENT on 09-03-2023 Cholesterol [Mass/Vol] 254 mg/dL <200 [facility] Comment on above: <200 mg/dL Desirable 200-240 mg/dL Borderline >240 mg/dL High Risk Glucose [Mass/Vol] 138 mg/dL 74-106 [facility] Comment on above: Fasting Glucose resu lt greater than or equal to 126 mg/dL suggests DIABETES MELLITUS per A.D.A. criteria. Triglyceride [Mass/Vol] 254 mg/dL <199 [facility] Comment on above: The drugs N-Acetylcy steine and Metamizole may falsely depress this assay.Serum Triglycerides Reference Interval Normal <150 mg/dL Borderline high 150 - 199 mg/dL High 200 - 499 mg/dL Very High > or = 500 mg/dL Serum or plasma cholesterol in HDL measurement (mass/volume)Ordered By: HEALTH ASSESSMENT on 09-03-2023 Cholesterol in HDL [Mass/Vol] 49 mg/dL >40 [facility] Comment on above: The drugs N-Acetylcy steine and Metamizole may falsely depress this assay. Reference Range HDL <40 mg/dL Low HDL Cholesterol HDL >or= 60 mg/dL High HDL Cholesterol Serum or plasma cholesterol in VLDL measurement (mass/volume)Ordered By: HEALTH ASSESSMENT on 09-03-2023 Cholesterol in VLDL [Mass/Vol] 51 mg/dL 5-40 [facility] Serum or plasma low density lipoprotein (LDL) cholesterol measurement (mass/volume)Ordered By: HEALTH ASSESSMENT on 09-03-2023 Cholesterol in LDL [Mass/Vol] 154 mg/dL 0-130 [facility] Culture, urineOrdered By: Honorio Salvador on 08-07-2023 Bacteria identified Cx Nom (U) Positive [facility] Absolute lymphocyte countOrd ered By: Leah Salvador on 08-03-2023 Lymphocytes Auto (Unsp spec) [#/Vol] 2.69 10*3/uL 0.83-4.51 [facility] Basophil percentageOrdered B y: Leah Salvador on 08-03-2023 Basophil percentage 10-25 SEEN /hpf 0-5 [facility] Basophils/100 WBC (Bld) 0.8 % 0-1 [facility] Bilirubin [Mass/Vol] 0.30 mg/dL 0.20-1.00 [facility] Comment on above: For patients on eltr ombopag therapy, use of Dimension [place] TBIL is not recommended. Chloride [Moles/Vol] 104 mmol/L 98-107 [facility] Cholesterol [Mass/Vol] 263 mg/dL <200 [facility] Comment on above: <200 mg/dL Desirable 200-240 mg/dL Borderline >240 mg/dL High Risk Eosinophils/100 WBC (Bld) 2.2 % 0-5 [facility] Glucose [Mass/Vol] 93 mg/dL 74-106 [facility] Neutrophils (Bld) [#/Vol] 3.9 10*3/uL 2.0-7.7 [facility] Neutrophils/100 WBC (Bld) 52.6 % 47-70 [facility] Potassium [Moles/Vol] 3.9 mmol/L 3.5-5.1 [facility] Protein [Mass/Vol] 8.3 g/dL 6.4-8.2 [facility] Sodium [Moles/Vol] 137 mmol/L 136-145 [facility] Triglyceride [Mass/Vol] 283 mg/dL <199 [facility] Comment on above: The drugs N-Acetylcy steine and Metamizole may falsely depress this assay.Serum Triglycerides Reference Interval Normal <150 mg/dL Borderline high 150 - 199 mg/dL High 200 - 499 mg/dL Very High > or = 500 mg/dL WBC (Bld) [#/Vol] 7.3 10*3/uL 4.4-11.0 [facility] Bilirubin Test strip Ql (U)O rdered By: Leah Salvador on 08-03-2023 Bilirubin Ql (U) Negative Negative [facility] Blood erythrocytes count (nu mber/volume)Ordered By: Leah Salvador on 08-03-2023 RBC (Bld) [#/Vol] 4.72 10*6/uL 4.2-5.4 [facility] Blood hemoglobin measurement (mass/volume)Ordered By: Leah Salvador on 08-03-2023 Hemoglobin (Bld) [Mass/Vol] 13.4 g/dL 12.0-15.0 [facility] Blood lymphocytes/100 leukoc ytesOrdered By: Leah Salvador on 08-03-2023 Lymphocytes/100 WBC (Bld) 36.7 % 19-41 [facility] Blood monocytes/100 leukocyt esOrdered By: Leah Salvador on 08-03-2023 Monocytes/100 WBC (Bld) 7.2 % 0-10 [facility] Blood platelet mean volumeOr dered By: Leah Salvador on 08-03-2023 Platelet mean volume (Bld) [Entitic vol] 12.1 fL 6.2-12.0 [facility] Determination of erythrocyte mean corpuscular volume (MCV)Ordered By: Leah Salvador on 08-03-2023 MCV (RBC) [Entitic vol] 87.1 fL 81-99 [facility] [facility] Hemat[facility]rit Auto (Bld) [Volum e fraction]Ordered By: Leah Salvador on 08-03-2023 Hematocrit (Bld) [Volume fraction] 41.1 % 37-47 [facility] Ketones Test strip Ql (U)Ord ered By: Leah Salvador on 08-03-2023 Ketones Ql (U) Negative Negative [facility] Laboratory - Chemistry and C hemistry - challengeOrdered By: Leah Salvador on 08-03-2023 ALP [Catalytic activity/Vol] 88 U/L 45-117 [facility] ALT [Catalytic activity/Vol] 22 U/L 13-56 [facility] CO2 [Moles/Vol] 26.0 mmol/L 21.0-32.0 [facility] Globulin (S) [Mass/Vol] 4.6 g/dL 2.2-4.2 [facility] Urea nitrogen/Creatinine [Mass ratio] 13.1 mg/mg 10-20 [facility] Laboratory - Hematology and Cell countsOrdered By: Leah Salvador on 08-03-2023 Erythrocyte distribution width (RBC) [Entitic vol] 41.4 fL 35.1-43.9 [facility] Erythrocyte distribution width (RBC) [Ratio] 13.0 % 11.6-14.6 [facility] Immature granulocytes/100 WBC (Bld) 0.500 % 0.0-0.9 [facility] Comment on above: IG% - Immature Granu locytes (promyelocytes, myelocytes and metamyelocytes) > 1% indicates that a LEFT SHIFT is Present. MCH (RBC) [Entitic mass] 28.4 pg 27.0-32.0 [facility] Nucleated RBC/100 WBC (Bld) [Ratio] 0 % 0-5 [facility] MCHC Auto (RBC) [Mass/Vol]Or dered By: Leah Salvador on 08-03-2023 MCHC (RBC) [Mass/Vol] 32.6 g/dL 32-36 [facility] Mucus LM Ql (Urine sed)Order ed By: Leah Salvador on 08-03-2023 Mucus Ql (Urine sed) 0 SEEN /hpf [facility] Nitrite Test strip Ql (U)Ord ered By: Leah Salvador on 08-03-2023 Nitrite Ql (U) Negative Negative [facility] No Panel InformationOrdered By: Leah Salvador on 08-03-2023 Estimated GFR (MDRD) Amer 102 mL/min >60 [facility] Comment on above: GFR Calc Estimated GFR (MDRD) Non-Af Amer 84 mL/min >60 [facility] Comment on above: Non- GFR Calc Thyroid Stimulating Hormone (TSH) 1.78 uIU/mL 0.358-3.74 [facility] Vitamin D 25-Hydroxy 20.6 ng/mL [facility] Comment on above: Vitamin D 25(OH) Sta tus Range Deficiency <20 ng/mL (50nmol/L) Insufficiency 20 - 30 ng/mL (50 - 75 nmol/L) Sufficiency 30 - 100 ng/mL (75 - 250 nmol/L) Toxicity >100 ng/mL (>250 nmol/L) Platelets bldOrdered By: David Salvador on 08-03-2023 Platelets (Bld) [#/Vol] 263 10*3/uL 150-450 [facility] Protein Test strip Ql (U)Ord ered By: Leah Salvador on 08-03-2023 Protein Ql (U) Negative Negative [facility] Serum or plasma albumin estefania urement (mass/volume)Ordered By: Leah Salvador on 08-03-2023 Albumin [Mass/Vol] 3.7 g/dL 3.2-5.0 [facility] Serum or plasma albumin/glob ulin mass ratioOrdered By: Leah Salvador on 08-03-2023 Albumin/Globulin [Mass ratio] 0.8 {ratio} 0.9-2.4 [facility] Serum or plasma calcium estefania urement (mass/volume)Ordered By: Leah Salvador on 08-03-2023 Calcium [Mass/Vol] 9.3 mg/dL 8.5-10.1 [facility] Serum or plasma cholesterol in HDL measurement (mass/volume)Ordered By: Leah Salvador on 08-03-2023 Cholesterol in HDL [Mass/Vol] 46 mg/dL >40 [facility] Comment on above: The drugs N-Acetylcy steine and Metamizole may falsely depress this assay. Reference Range HDL <40 mg/dL Low HDL Cholesterol HDL >or= 60 mg/dL High HDL Cholesterol Serum or plasma cholesterol in VLDL measurement (mass/volume)Ordered By: Leah Salvador on 08-03-2023 Cholesterol in VLDL [Mass/Vol] 57 mg/dL 5-40 [facility] Serum or plasma creatinine m easurement (mass/volume)Ordered By: Leah Salvador on 08-03-2023 Creatinine [Mass/Vol] 0.76 mg/dL 0.55-1.02 [facility] Comment on above: The validity of the calculated GFR & GFRAA in patients over 70 years has not been determined. Clinical correlation is essential. Serum or plasma low density lipoprotein (LDL) cholesterol measurement (mass/volume)Ordered By: Leah Salvador on 08-03-2023 Cholesterol in LDL [Mass/Vol] 160 mg/dL 0-130 [facility] Serum or plasma urea nitroge n measurement (mass/volume)Ordered By: Leah Salvador on 08-03-2023 Urea nitrogen [Mass/Vol] 10 mg/dL 7-18 [facility] Squamous epithelial cells de tection in urine sediment by light microscopyOrdered By: Leah Salvador on 08-03-2023 Epithelial cells.squamous LM Ql (Urine sed) 0-5 SEEN /hpf 5-10 [facility] Thin prep Papanicolaou smear with manual screeningOrdered By: Leah Salvador on 08-03-2023 Thin prep Papanicolaou smear with manual screening 13 U/L 15-37 [facility] Thin prep Papanicolaou smear with manual screening 7 5-15 [facility] Urine blood detectionOrdered By: Leah Salvador on 08-03-2023 RBC Ql (U) Negative Negative [facility] RBC Ql (U) 0 SEEN /hpf 0-5 [facility] Urine clarityOrdered By: David Salvador on 08-03-2023 Clarity (U) Clear Clear [facility] Urine color determinationOrd ered By: Leah Salvador on 08-03-2023 Color (U) Yellow Yellow [facility] Urine glucose detectionOrder ed By: Leah Salvador on 08-03-2023 Glucose Ql (U) Normal mg/dl Normal [facility] Urine leukocyte esterase det ection by dipstickOrdered By: Leah Salvador on 08-03-2023 Leukocyte esterase Test strip Ql (U) 100 /ul Negative [facility] Urine pHOrdered By: Leah ramirez on 08-03-2023 pH (U) 6.0 [pH] 5.0 - 8.0 [facility] Urine sediment bacteria coun t by microscopy (number/high power field)Ordered By: Leah Salvador on 08-03-2023 Bacteria LM.HPF (Urine sed) [#/Area] 0 /[HPF] None Seen [facility] Urine specific gravity measu rementOrdered By: Leah Salvador on 08-03-2023 Specific gravity (U) [Rel density] 1.020 1.002-1.030 [facility] Urobilinogen Auto test strip Ql (U)Ordered By: Leah Salvador on 08-03-2023 Urobilinogen Ql (U) Normal mg/dl Normal [facility] Basophil percentageon 2021 Chloride [Moles/Vol] 104 mmol/L 98-107 [facility] Work Phone: Glucose [Mass/Vol] 103 mg/dL 74-106 [facility] Work Phone: Comment on above: Fasting Glucose resu lt from 100 to 125 mg/dL suggests IMPAIRED HOMEOSTASIS per A.D.A. criteria. Potassium [Moles/Vol] 3.9 mmol/L 3.5-5.1 [facility] Work Phone: Sodium [Moles/Vol] 140 mmol/L 136-145 [facility] Work Phone: Laboratory - Chemistry and C hemistry - challengeon 10-14-2022 CO2 [Moles/Vol] 31.0 mmol/L 21.0-32.0 [facility] Work Phone: Urea nitrogen/Creatinine [Mass ratio] 20.3 mg/mg 10-20 [facility] Work Phone: No Panel Informationon 10-14 Estimated GFR (MDRD) Amer 125 mL/min >60 [facility] Work Phone: Comment on above: GFR Calc Estimated GFR (MDRD) Non-Af Amer 103 mL/min >60 [facility] Work Phone: Comment on above: Non- GFR Calc Troponin I High Sensitivity 6 pg/mL 3.0-54.0 [facility] Work Phone: Comment on above: Please Note: New Amparo t Units and Gender Specific Reference Ranges. For more information see Policy Stat Procedure [place] High Sensitivity Troponin (TNIH) and attachments. Serum or plasma calcium estefania urement (mass/volume)on 10-14-2022 Calcium [Mass/Vol] 9.2 mg/dL 8.5-10.1 [facility] Work Phone: Serum or plasma creatinine m easurement (mass/volume)on 10-14-2022 Creatinine [Mass/Vol] 0.64 mg/dL 0.55-1.02 [facility] Work Phone: Comment on above: The validity of the calculated GFR & GFRAA in patients over 70 years has not been determined. Clinical correlation is essential. Serum or plasma urea nitroge n measurement (mass/volume)on 10-14-2022 Urea nitrogen [Mass/Vol] 13 mg/dL 7-18 [facility] Work Phone: Thin prep Papanicolaou smear with manual screeningon 10-14-2022 Thin prep Papanicolaou smear with manual screening 5 5-15 [facility] Work Phone: [phone] Absolute lymphocyte counton 09-01-2022 Lymphocytes Auto (Unsp spec) [#/Vol] 2.26 10*3/uL 0.83-4.51 [facility] Work Phone: Basophil percentageon 2021 Basophils/100 WBC (Bld) 0.9 % 0-1 [facility] Work Phone: Bilirubin [Mass/Vol] 0.30 mg/dL 0.20-1.00 [facility] Work Phone: [phone] Comment on above: For patients on eltr ombopag therapy, use of Dimension [place] TBIL is not recommended. Chloride [Moles/Vol] 105 mmol/L 98-107 [facility] Work Phone: [phone] Cholesterol [Mass/Vol] 194 mg/dL <200 [facility] Work Phone: [phone] Comment on above: <200 mg/dL Desirable 200-240 mg/dL Borderline >240 mg/dL High Risk Eosinophils/100 WBC (Bld) 2.6 % 0-5 [facility] Work Phone: Glucose [Mass/Vol] 95 mg/dL 74-106 [facility] Work Phone: [phone] Neutrophils (Bld) [#/Vol] 3.3 10*3/uL 2.0-7.7 [facility] Work Phone: Neutrophils/100 WBC (Bld) 51.8 % 47-70 [facility] Work Phone: Potassium [Moles/Vol] 4.4 mmol/L 3.5-5.1 [facility] Work Phone: [phone] Protein [Mass/Vol] 7.6 g/dL 6.4-8.2 [facility] Work Phone: [phone] Sodium [Moles/Vol] 139 mmol/L 136-145 [facility] Work Phone: [phone] Triglyceride [Mass/Vol] 189 mg/dL <199 [facility] Work Phone: [phone] Comment on above: The drugs N-Acetylcy steine and Metamizole may falsely depress this assay.Serum Triglycerides Reference Interval Normal <150 mg/dL Borderline high 150 - 199 mg/dL High 200 - 499 mg/dL Very High > or = 500 mg/dL WBC (Bld) [#/Vol] 6.4 10*3/uL 4.4-11.0 [facility] Work Phone: Blood erythrocytes count (nu mber/volume)on 09-01-2022 RBC (Bld) [#/Vol] 4.49 10*6/uL 4.2-5.4 [facility] Work Phone: [phone] Blood hemoglobin measurement (mass/volume)on 09-01-2022 Hemoglobin (Bld) [Mass/Vol] 12.6 g/dL 12.0-15.0 [facility] Work Phone: [phone] Blood lymphocytes/100 leukoc yteson 09-01-2022 Lymphocytes/100 WBC (Bld) 35.2 % 19-41 [facility] Work Phone: [phone] Blood monocytes/100 leukocyt eson 09-01-2022 Monocytes/100 WBC (Bld) 9.2 % 0-10 [facility] Work Phone: [phone] Blood platelet mean volumeon 09-01-2022 Platelet mean volume (Bld) [Entitic vol] 13.4 fL 6.2-12.0 [facility] Work Phone: Determination of erythrocyte mean corpuscular volume (MCV)on 09-01-2022 MCV (RBC) [Entitic vol] 87.8 fL 81-99 [facility] Work Phone: Hematocrit Auto (Bld) [Volum e fraction]on 09-01-2022 Hematocrit (Bld) [Volume fraction] 39.4 % 37-47 [facility] Work Phone: Laboratory - Chemistry and C hemistry - challengeon 09-01-2022 ALP [Catalytic activity/Vol] 62 U/L 45-117 [facility] Work Phone: [phone] ALT [Catalytic activity/Vol] 22 U/L 13-56 [facility] Work Phone: [phone] CO2 [Moles/Vol] 28.0 mmol/L 21.0-32.0 [facility] Work Phone: [phone] Globulin (S) [Mass/Vol] 4.2 g/dL 2.2-4.2 [facility] Work Phone: Urea nitrogen/Creatinine [Mass ratio] 11.9 mg/mg 10-20 [facility] Work Phone: [phone] Laboratory - Hematology and Cell countson 09-01-2022 Erythrocyte distribution width (RBC) [Entitic vol] 49.0 fL 35.1-43.9 [facility] Work Phone: [phone] Erythrocyte distribution width (RBC) [Ratio] 15.4 % 11.6-14.6 [facility] Work Phone: [phone] Immature granulocytes/100 WBC (Bld) 0.300 % 0.0-0.9 [facility] Work Phone: [phone] Comment on above: IG% - Immature Granu locytes (promyelocytes, myelocytes and metamyelocytes) > 1% indicates that a LEFT SHIFT is Present. MCH (RBC) [Entitic mass] 28.1 pg 27.0-32.0 [facility] Work Phone: [phone] Nucleated RBC/100 WBC (Bld) [Ratio] 0 % 0-5 [facility] Work Phone: [phone] MCHC Auto (RBC) [Mass/Vol]on 09-01-2022 MCHC (RBC) [Mass/Vol] 32.0 g/dL 32-36 [facility] Work Phone: [phone] Panel Informationon 09-01 Estimated GFR (MDRD) Amer 118 mL/min >60 [facility] Work Phone: [phone] Comment on above: GFR Calc Estimated GFR (MDRD) Non-Af Amer 97 mL/min >60 [facility] Work Phone: [phone] Comment on above: Non- GFR Calc Vitamin D 25-Hydroxy 21.4 ng/mL [facility] Work Phone: [phone] Comment on above: Vitamin D 25(OH) Sta tus Range Deficiency <20 ng/mL (50nmol/L) Insufficiency 20 - 30 ng/mL (50 - 75 nmol/L) Sufficiency 30 - 100 ng/mL (75 - 250 nmol/L) Toxicity >100 ng/mL (>250 nmol/L) Platelets bldon 09-01-2022 Platelets (Bld) [#/Vol] 219 10*3/uL 150-450 [facility] Work Phone: Serum or plasma albumin estefania urement (mass/volume)on 09-01-2022 Albumin [Mass/Vol] 3.4 g/dL 3.2-5.0 [facility] Work Phone: Serum or plasma albumin/glob ulin mass ratioon 09-01-2022 Albumin/Globulin [Mass ratio] 0.8 {ratio} 0.9-2.4 [facility] Work Phone: Serum or plasma calcium estefania urement (mass/volume)on 09-01-2022 Calcium [Mass/Vol] 9.1 mg/dL 8.5-10.1 [facility] Work Phone: Serum or plasma cholesterol in HDL measurement (mass/volume)on 09-01-2022 Cholesterol in HDL [Mass/Vol] 49 mg/dL >40 [facility] Work Phone: Comment on above: The drugs N-Acetylcy steine and Metamizole may falsely depress this assay. Reference Range HDL <40 mg/dL Low HDL Cholesterol HDL >or= 60 mg/dL High HDL Cholesterol Serum or plasma cholesterol in VLDL measurement (mass/volume)on 09-01-2022 Cholesterol in VLDL [Mass/Vol] 38 mg/dL 5-40 [facility] Work Phone: Serum or plasma creatinine m easurement (mass/volume)on 09-01-2022 Creatinine [Mass/Vol] 0.68 mg/dL 0.55-1.02 [facility] Work Phone: Comment on above: The validity of the calculated GFR & GFRAA in patients over 70 years has not been determined. Clinical correlation is essential. Serum or plasma low density lipoprotein (LDL) cholesterol measurement (mass/volume)on 09-01-2022 Cholesterol in LDL [Mass/Vol] 107 mg/dL 0-130 [facility] Work Phone: Serum or plasma urea nitroge n measurement (mass/volume)on 09-01-2022 Urea nitrogen [Mass/Vol] 8 mg/dL 7-18 [facility] Work Phone: Thin prep Papanicolaou smear with manual screeningon 09-01-2022 Thin prep Papanicolaou smear with manual screening 15 U/L 15-37 [facility] Work Phone: Thin prep Papanicolaou smear with manual screening 6 5-15 [facility] Work Phone: Cervical or vagninal specime n microscopic examination by cytology stain (reported ason 04-01-2022 Cytology report Cyto stain Doc (Cvx/Vag) Comment [facility] Work Phone: Comment on above: The Pap smear is a s creening test designed to aid in thedetection of premalignant and malignant conditions of theuterine cervix. It is not a diagnostic procedure andshould not be used as the sole means of detecting cervicalcancer. Both false-positive and false-negative reports dooccur. Laboratory - Cytologyon 03-23 [place] Cyto stain Nom (Cvx/Vag) [ID] Comment [facility] Work Phone: Comment on above: Aiden Solo ytotechnologist (ASCP) Laboratory - Miscellaneous t estson 04-01-2022 Service comment (Unsp spec) [Interp] Comment [facility] Work Phone: Comment on above: This liquid based Th inPrep(R) pap test was screened withthe use of an image guided system. Service comment (Unsp spec) [Interp] . [facility] Work Phone: No Panel Informationon 04-01 Human Papillomavirus Screen Comment [facility] Work Phone: Comment on above: The HPV DNA reflex [place] were not met with this specimenresult therefore, no HPV testing was performed.Performed at: [address] [id number] Director: Georgiana Lindsay MD, Phone: [phone] Pathology report final diagnosis Narrative Comment [facility] Work Phone: Comment on above: NEGATIVE FOR INTRAEP ITHELIAL LESION OR MALIGNANCY. PROGRESSon 11-22-2019 PROGRESS HNO ID: [id number] Author: Nicole Tolliver Service: ? Author Type: Paper Stacker Type: Progress Notes Filed: 11/22/2019 12:39 PM Note Text: [facility] LOG RAFTER QUICKNOTE Provider Action/FYI: [employer] message read. Patient aware she's due for an appointment and Hm. Patient identified by name and . Nicole Tolliver CMA [facility] (INTMWS[facility] CARLA ANDERSON ([id number]) 1970 F Date Time Provider Department 11/18/19 NICOLE TOLLIVER (VER[place]) INTMWS During your visit today, we recorded the following information about you: Nicole Tolliver CMA 11/22/2019 12:39 PM Signed [facility] CARE GAP REGISTRY DOCUMENTATION (OUTSIDE TEAMLET) Provider Action/FYI: PSR Action/FYI: - r/s 6 month follow up (06/20) Health Maintenance Due: DTAP,TDAP,TD(1 - Tdap) due on 1981 INFLUENZA(1) due on 07/24/2019 Patient identified by name and date of . Last BP/Labs: Blood Pressure: Last 3 Encounter BP Readings: Date: BP: 03/25/2019 104/68 12/16/2018 130/84 11/10/2018 128/88 Lipids: Cholesterol, Total (mg/dL) Date Value 12/09/2018 192 12/28/2017 207 HDL Cholesterol (mg/dL) Date Value 12/09/2018 48 12/28/2017 67 LDL Cholesterol (mg/dL) Date Value 12/09/2018 129 12/28/2017 132 Triglyceride (mg/dL) Date Value 12/09/2018 76 12/28/2017 39 HGB A1C: No results found for: HBA1C TSH: No results found for: TSH) ? Patient has the following care gap registry disease diagnosis:HTN ? Hypercholesterolemia ? Patient has the following open care gaps: Health Maintenance Due: DTAP,TDAP,TD(1 - Tdap) due on 1981 INFLUENZA(1) due on 07/24/2019 ? Last office visit: 12/16/2018 ? Future office visit: r/s 6 month follow up VERNON Scherer CMA 11/22/2019 12:39 PM Signed [facility] LOG RAFTER RUPESHE Provider Action/FYI: 1st attempt - [employer] message sent. Patient identified by name and . VERNON Scherer CMA 11/22/2019 12:39 PM Signed [facility] LOG RAFTER SANDY Provider Action/FYI: [employer] message read. Patient aware she's due for an appointment and Hm. Patient identified by name and . Nicole Tolliver CMA Allergies As of Date: 11/18/2019 (No Known Allergies) Date Reviewed: 03/25/2019 Reviewed by: Rylie Galicia (Yasmine) YASMINE Salas - Fully Assessed Reason for Visit: PHMA/Care Gap Outreach [[id number]] Prescriptions as of 11/18/2019 Sig: ESCITALOPRAM 5 MG TABLET Take 1 tablet by mouth once d* MULTI VITAMIN ORAL Take 1 tablet by mouth twice * POTASSIUM CITRATE ORAL Take 1 tablet by mouth once d* ADULT MULTI PLUS OMEGA-3 ORAL Take 2 tablets by mouth once * ANEESH-MAG ORAL Take 2 tablets by mouth once * Problem List As Of Date 11/18/2019 Noted Resolved Hypercholesterolemia [E78.00] 08/19/2016 Essential hypertension [I10] 08/19/2016 Obesity (BMI 30.0-34.9) [E66.9] 08/19/2016 12/16/2018 Heart murmur, systolic [R01.1] 08/19/2016 Depression with anxiety [F41.8] 12/28/2017 ASCUS of cervix with negative high risk HPV [R8*07/30/2017 12/16/2018 More... Abnormal mammogram (right) [R92.8] 03/08/2013 Encounter Status:Closed by NICOLE TOLLIVER CMA on 11/22/19 [facility] 11-18-2019 PROGRESS HNO ID: [id number] Author: Nicole Tolliver Service: ? Author Type: Paper Stacker Type: Progress Notes Filed: 11/22/2019 12:39 PM Note Text: [facility] [place] [facility] LOG RAFTER QUICKNOTE Provider Action/FYI: 1st attempt - [employer] message sent. Patient identified by name and . Nicole Tolliver CMA [facility] PROGRESS HNO ID: [id number] Author: Nicole Vernon Unruly Service: ? Author Type: Paper Stacker Type: Progress Notes Filed: 11/22/2019 12:39 PM Note Text: [facility] CARE GAP REGISTRY DOCUMENTATION (OUTSIDE TEAMLET) Provider Action/FYI: PSR Action/FYI: - r/s 6 month follow up (06/20) Health Maintenance Due: DTAP,TDAP,TD(1 - Tdap) due on 1981 INFLUENZA(1) due on 07/24/2019 Patient identified by name and date of . Last BP/Labs: Blood Pressure: Last 3 Encounter BP Readings: Date: BP: 03/25/2019 104/68 12/16/2018 130/84 11/10/2018 128/88 Lipids: Cholesterol, Total (mg/dL) Date Value 12/09/2018 192 12/28/2017 207 HDL Cholesterol (mg/dL) Date Value 12/09/2018 48 12/28/2017 67 LDL Cholesterol (mg/dL) Date Value 12/09/2018 129 12/28/2017 132 Triglyceride (mg/dL) Date Value 12/09/2018 76 12/28/2017 39 HGB A1C: No results found for: HBA1C TSH: No results found for: TSH) ? Patient has the following care gap registry disease diagnosis:HTN ? Hypercholesterolemia ? Patient has the following open care gaps: Health Maintenance Due: DTAP,TDAP,TD(1 - Tdap) due on 1981 INFLUENZA(1) due on 07/24/2019 ? Last office visit: 12/16/2018 ? Future office visit: r/s 6 month follow up Nicole VERNON Tolliver [facility] CNCOon 04-27-2019 CNCO Letter Text [facility] CNOVon 03-25-2019 CNOV Office Visit (FAMPWS ) CARLA ANDERSON ([id number]) 1970 F Date Time Provider Department 03/25/19 9:00 AM JAJA CHAU (ELAN) LISANDRA During your visit today, we recorded the following information about you: Pulse Respiration Blood pressure Weight 64/minute 18/minute 104/68 71.8 kg Jaja Chau, BARREL HEADER.ELAN 03/25/2019 1:03 PM Signed 03/25/2019 Patient presents with: Pain: rt arm fell last night landed on this arm, states hurts to use shoots pain up arm SUBJECTIVE: This is a 48 year old that is here today for Above Complaints. Last evening slipped on ceramic tile and landed on right arm. Did not have immediate pain. As the night went on having shooting pains up and down arm medial and lateral aspect.. Aggravated by typing and turning meredith to start car. Some alleviation with motrin and holding arm flexed at elbow at 90 degree against abdomen. Denies previous or past hx of injury or fracture to arm, numbness, tingling, weakness, bruising, swelling, redness or warmth. PAST MEDICAL HISTORY Diagnosis Date - Abnormal mammogram (right) 03/08/2013 - Anxiety 2007 - ASCUS of cervix with negative high risk HPV 07/30/2017 - Depression 2007 - Fever of unknown origin (FUO) 1994 CMV infection - HTN (hypertension) 2015 - Hyperlipidemia 2015 ALLERGIES Patient has no known allergies. MEDICATIONS Current Outpatient Medications: escitalopram oxalate (LEXAPRO) 10 mg tablet Take 0.5 tablets by mouth once daily. escitalopram oxalate (LEXAPRO) 5 mg tablet Take 1 tablet by mouth once daily. MULTIVIT-MINERALS/MICHEL US FUM (MULTI VITAMIN ORAL) Take 1 tablet by mouth twice daily. POTASSIUM CITRATE ORAL Take 1 tablet by mouth once daily. MV-MIN/FA/D3/OM-3/DHA/E PA/FISH (ADULT MULTI PLUS OMEGA-3 ORAL) Take 2 tablets by mouth once daily. CALCIUM CARB/MAGNESIUM OX,CARB (ANEESH-MAG ORAL) Take 2 tablets by mouth once daily. Calcium, Magnesium, Zinc AND Vitamin D supplement No current facility-administered medications for this visit. Medications and allergies reviewed by this provider. 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 OBJECTIVE: BP 104/68 (BP Site: Left Arm, BP Position: Sitting, BP Cuff Size: Regular Adult) Pulse 64 Resp 18 Wt 71.8 kg (158 lb 6.4 oz) BMI 23.73 kg/m? . Vital signs reviewed by this provider. APPEARANCE Well appearing, alert, in no acute distress, well-hydrated, well nourished. Right shoulder : without pain, swelling, redness, painful movement, loss of ROM, effusion and numbness. of the acromium, AC joint, SC joint and biceps grove/tendon. strength flexion 5/5, extention 5/5, abduction 5/5, adduction 5/5, internal rotation 5/5, external rotation 5/5. Shoulder ROM: WNL Right elbow/forarm. : without swelling, redness, loss of ROM and numbness. of the medial epicondyle of humerus, lateral epicondyle of humerus, olecranon, radial head, radius, ulna. flexion normal, extension normal, supination normal, pronation normal. Elbow ROM: flexion: right 5/5, extension: right 5/5, supination: right 5/5 and pronation: right 5/5 Right wrist/hand : without pain, swelling, redness, painful movement, loss of ROM and numbness. of the distal radius and ulnar head. ROM: FROM ASSESSMENT/PLAN: 1. Right arm pain - ICD9: 729.5, ICD10: M79.601 (primary diagnosis) - no red flag exam findings, no obvious deformity, consider hairline fracture - will entire arm as the pain goes from wrist to mid bicep and is located laterally and medially - XR WRIST GENERAL 3V PA/LAT/OBL RT - XR FOREARM GENERAL 2V AP/LAT RT - XR HUMERUS 2V AP/LAT RT - XR SHOULDER [id number] AP/TRUE AP RT - XR ELBOW SPECIAL VIEWS AP/LAT/OTHER RT - SLING, ARM - discussed RICE - sling given for comfort - follow-up pending xray Jaja Chau APRN.EMR IMPLEMENTATION SPECIALIST Prescription instructions reviewed with patient as applicable. Patient advised if symptoms do not improve or if symptoms worsen sooner, to contact their primary care physician. Potential red flag symptoms discussed with the patient. Reviewed appropriate action plan to take if red flag symptoms occur. Patient agreeable to treatment plan. Jaja Chau APRN.ELAN 03/25/2019 9:09 AM Signed Ice or heat and motrin 600-800 mg every 6-8 hours as needed for pain Referring Provider: SELF [[id number]] Allergies As of Date: 03/25/2019 (No Known Allergies) Date Reviewed: 03/25/2019 Reviewed by: Rylie Galicia (Cloth Dyer) YASMINE Salas - Fully Assessed Reason for Visit: Pain [78] Cmt: rt arm fell last night landed on this arm, states hurts to use shoots pain up arm Primary Visit Diagnosis:Right arm pain [M79.601] Order(s):SLING, ARM [[id number]] Order #: [id number] XR WRIST GENERAL 3V PA/LAT/OBL RT [[id number]] Order #: [id number] FUTURE XR HUMERUS 2V AP/LAT RT [[id number]] Order #: [id number] FUTURE XR ELBOW SPECIAL VIEWS AP/LAT/OTHER RT [[id number]] Order #: [id number] FUTURE XR SHOULDER [id number] AP/TRUE AP RT [[id number]] Order #: [id number] FUTURE XR FOREARM GENERAL 2V AP/LAT RT [[id number]] Order #: [id number] FUTURE XR SHOULDER GENERAL 3V OR MORE AP/TRUE AP/OTHER RT [[id number]] Order #: [id number] FUTURE Prescriptions as of 03/25/2019 Sig: ESCITALOPRAM 10 MG TABLET Take 0.5 tablets by mouth onc* ESCITALOPRAM 5 MG TABLET Take 1 tablet by mouth once d* MULTI VITAMIN ORAL Take 1 tablet by mouth twice * POTASSIUM CITRATE ORAL Take 1 tablet by mouth once d* ADULT MULTI PLUS OMEGA-3 ORAL Take 2 tablets by mouth once * ANEESH-MAG ORAL Take 2 tablets by mouth once * Problem List As Of Date 03/25/2019 Noted Resolved Hypercholesterolemia [E78.00] INVALID FOR* Essential hypertension [I10] INVALID FOR* Obesity (BMI 30.0-34.9) [E66.9] INVALID FOR*12/16/2018 Heart murmur, systolic [R01.1] INVALID FOR* Depression with anxiety [F41.8] INVALID FOR* ASCUS of cervix with negative high risk HPV [R8*INVALID FOR*12/16/2018 More... Abnormal mammogram (right) [R92.8] INVALID FOR* Other instructions from your clinician: Ice or heat and motrin 600-800 mg every 6-8 hours as needed for pain Follow-up and Disposition History Recorded Encounter Status:Closed by PODLOGARJAJA CNP on 03/25/19 Normal [facility] PROGRESSon 03-25-2019 PROGRESS HNO ID: [id number] Author: Jaja (Elan) Podlogar Service: ? Author Type: Nurse Practitioner Type: Progress Notes Filed: 03/25/2019 1:03 PM Note Text: 03/25/2019 Patient presents with: Pain: rt arm fell last night landed on this arm, states hurts to use shoots pain up arm SUBJECTIVE: This is a 48 year old that is here today for Above Complaints. Last evening slipped on ceramic tile and landed on right arm. Did not have immediate pain. As the night went on having shooting pains up and down arm medial and lateral aspect.. Aggravated by typing and turning meredith to start car. Some alleviation with motrin and holding arm flexed at elbow at 90 degree against abdomen. Denies previous or past hx of injury or fracture to arm, numbness, tingling, weakness, bruising, swelling, redness or warmth. PAST MEDICAL HISTORY Diagnosis Date - Abnormal mammogram (right) 03/08/2013 - Anxiety 2007 - ASCUS of cervix with negative high risk HPV 07/30/2017 - Depression 2007 - Fever of unknown origin (FUO) 1994 CMV infection - HTN (hypertension) 2015 - Hyperlipidemia 2016 ALLERGIES Patient has no known allergies. MEDICATIONS Current Outpatient Medications: escitalopram oxalate (LEXAPRO) 10 mg tablet Take 0.5 tablets by mouth once daily. escitalopram oxalate (LEXAPRO) 5 mg tablet Take 1 tablet by mouth once daily. MULTIVIT-MINERALS/MICHEL US FUM (MULTI VITAMIN ORAL) Take 1 tablet by mouth twice daily. POTASSIUM CITRATE ORAL Take 1 tablet by mouth once daily. MV-MIN/FA/D3/OM-3/DHA/E PA/FISH (ADULT MULTI PLUS OMEGA-3 ORAL) Take 2 tablets by mouth once daily. CALCIUM CARB/MAGNESIUM OX,CARB (ANEESH-MAG ORAL) Take 2 tablets by mouth once daily. Calcium, Magnesium, Zinc AND Vitamin D supplement No current facility-administered medications for this visit. Medications and allergies reviewed by this provider. 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 OBJECTIVE: BP 104/68 (BP Site: Left Arm, BP Position: Sitting, BP Cuff Size: Regular Adult) Pulse 64 Resp 18 Wt 71.8 kg (158 lb 6.4 oz) BMI 23.73 kg/m? . Vital signs reviewed by this provider. APPEARANCE Well appearing, alert, in no acute distress, well-hydrated, well nourished. Right shoulder : without pain, swelling, redness, painful movement, loss of ROM, effusion and numbness. of the acromium, AC joint, SC joint and biceps grove/tendon. strength flexion 5/5, extention 5/5, abduction 5/5, adduction 5/5, internal rotation 5/5, external rotation 5/5. Shoulder ROM: WNL Right elbow/forarm. : without swelling, redness, loss of ROM and numbness. of the medial epicondyle of humerus, lateral epicondyle of humerus, olecranon, radial head, radius, ulna. flexion normal, extension normal, supination normal, pronation normal. Elbow ROM: flexion: right 5/5, extension: right 5/5, supination: right 5/5 and pronation: right 5/5 Right wrist/hand : without pain, swelling, redness, painful movement, loss of ROM and numbness. of the distal radius and ulnar head. ROM: FROM ASSESSMENT/PLAN: 1. Right arm pain - ICD9: 729.5, ICD10: M79.601 (primary diagnosis) - no red flag exam findings, no obvious deformity, consider hairline fracture - will entire arm as the pain goes from wrist to mid bicep and is located laterally and medially - XR WRIST GENERAL 3V PA/LAT/OBL RT - XR FOREARM GENERAL 2V AP/LAT RT - XR HUMERUS 2V AP/LAT RT - XR SHOULDER [id number] AP/TRUE AP RT - XR ELBOW SPECIAL VIEWS AP/LAT/OTHER RT - SLING, ARM - discussed RICE - sling given for comfort - follow-up pending andrae Chau, BARREL HEADER.EMR IMPLEMENTATION SPECIALIST Prescription instructions reviewed with patient as applicable. Patient advised if symptoms do not improve or if symptoms worsen sooner, to contact their primary care physician. Potential red flag symptoms discussed with the patient. Reviewed appropriate action plan to take if red flag symptoms occur. Patient agreeable to treatment plan. Normal [facility] XR FOREARM 2V AP/LAT RTon XR FOREARM 2V AP/LAT RT * * *Final Repor t* * * DATE OF EXAM: Mar 25 2019 9:55AM WOX [id number] - XR FOREARM 2V AP/LAT RT / PROCEDURE REASON: Right arm pain * * * * Physician Interpretation * * * * 3 studies discussed below: RIGHT shoulder / RIGHT humerus / RIGHT forearm EXAM DATE/TIME: 03/25/2019 9:56 AM HISTORY: 48 years old Clinical information: Right arm pain pt states fell last night and landed on her right side pain is mostly from right shoulder to mid forearm area TECHNIQUE: Images: XR SHLDR >/=3V AP/NEYDA AP/OTHR RT, XR FOREARM 2V AP/LAT RT, XR HUMERUS 2V AP/LAT RT Comparison: None. RESULT: Findings: RIGHT shoulder: No fractures or dislocations are seen. RIGHT humerus: No fractures or dislocations are seen. RIGHT forearm : Oblique lucency over the proximal radius probably represents a vascular groove. No other fractures or dislocations are seen. IMPRESSION: 1. Oblique lucency over the medial aspect of the proximal radius probably represents a vascular groove. This should be correlated with the area of pain 2. Study otherwise unremarkable Granite Countertop Installer: LESA Transcribe Date/Time: Mar 25 2019 10:09A Dictated by : GEORGIA ULRICH DO This examination was interpreted and the report reviewed and electronically signed by: GEORGIA ULRICH DO on Mar 25 2019 10:36AM EST [id number] Normal [facility] XR HUMERUS 2V AP/LAT RTon XR HUMERUS 2V AP/LAT RT * * *Final Repor t* * * DATE OF EXAM: Mar 25 2019 9:55AM WOX [id number] - XR HUMERUS 2V AP/LAT RT / PROCEDURE REASON: Right arm pain * * * * Physician Interpretation * * * * 3 studies discussed below: RIGHT shoulder / RIGHT humerus / RIGHT forearm EXAM DATE/TIME: 03/25/2019 9:56 AM HISTORY: 48 years old Clinical information: Right arm pain pt states fell last night and landed on her right side pain is mostly from right shoulder to mid forearm area TECHNIQUE: Images: XR SHLDR >/=3V AP/NEYDA AP/OTHR RT, XR FOREARM 2V AP/LAT RT, XR HUMERUS 2V AP/LAT RT Comparison: None. RESULT: Findings: RIGHT shoulder: No fractures or dislocations are seen. RIGHT humerus: No fractures or dislocations are seen. RIGHT forearm : Oblique lucency over the proximal radius probably represents a vascular groove. No other fractures or dislocations are seen. IMPRESSION: 1. Oblique lucency over the medial aspect of the proximal radius probably represents a vascular groove. This should be correlated with the area of pain 2. Study otherwise unremarkable Granite Countertop Installer: PSCB Transcribe Date/Time: Mar 25 2019 10:09A Dictated by : GEORGIA ULRICH DO This examination was interpreted and the report reviewed and electronically signed by: GEORGIA ULRICH DO on Mar 25 2019 10:36AM EST [id number] Normal [facility] XR SHLDR >/=3V AP/NEYDA AP/OTH R RTon 03-25-2019 XR SHLDR >/=3V AP/NEYDA AP/OTHR RT * * *Final Report* * * DATE OF EXAM: Mar 25 2019 9:56AM WOX [id number] - XR SHLDR >/=3V AP/NEYDA AP/OTHR RT / PROCEDURE REASON: Right arm pain * * * * Physician Interpretation * * * * 3 studies discussed below: RIGHT shoulder / RIGHT humerus / RIGHT forearm EXAM DATE/TIME: 03/25/2019 9:56 AM HISTORY: 48 years old Clinical information: Right arm pain pt states fell last night and landed on her right side pain is mostly from right shoulder to mid forearm area TECHNIQUE: Images: XR SHLDR >/=3V AP/NEYDA AP/OTHR RT, XR FOREARM 2V AP/LAT RT, XR HUMERUS 2V AP/LAT RT Comparison: None. RESULT: Findings: RIGHT shoulder: No fractures or dislocations are seen. RIGHT humerus: No fractures or dislocations are seen. RIGHT forearm : Oblique lucency over the proximal radius probably represents a vascular groove. No other fractures or dislocations are seen. IMPRESSION: 1. Oblique lucency over the medial aspect of the proximal radius probably represents a vascular groove. This should be correlated with the area of pain 2. Study otherwise unremarkable Granite Countertop Installer: LESA Transcribe Date/Time: Mar 25 2019 10:09A Dictated by : GEORGIA ULRICH DO This examination was interpreted and the report reviewed and electronically signed by: GEORGIA ULRICH DO on Mar 25 2019 10:36AM EST [id number] Normal [facility] PROGRESSon 01-11-2019 PROGRESS HNO ID: [id number] Author: Omid Dunlap Service: (none) Author Type: Psychologist Type: Progress Notes Filed: 01/11/2019 6:42 PM Note Text: [facility] Progress Note Carla Anderson 01/11/2019 [id number] Provider: Omid Dunlap, PHD CPT Code: 91601 Psychiatric diagnostic evaluation Time: Approximately 50 minutes was spent in therapy. Parties Present: Patient Patient Presentation/Concerns: INITIAL VISIT Pt grew up as 4th of 5 in [place] .. father was rn observation... went to college... 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 19 and 24 yo boys and 20 and 21 yo girls Anxiety... always a bit fearful.... ie of being alone but recent 2 yrs FEAR OF DRIVING AND FEAR OF SPIDERS ARE QUITE PROBLEMATIC Driving ... fear accident and hurt someone or cause an accident didnt drive til in college and works in [employer] and can drive her to work etc. PLAN: challenge but not overwhelm often ok in good weather.... rain snow and night are problems drive further locally and try driving home tomorrow since snow w husb in car and if need be let him take over discussed feeling some stress but not overwhelmed so can drive slowly etc. as long as it is challenging but not overwhelming educative: discussed amygdala and emotional vs intellectual thinking Mental Status: Mood: variable, anxious Affect: mood-congruent Thoughts/Associations:g oal directed Suicidal/Homicidal Ideation: None expressed or evidenced Other Observations: None Therapy Focus Self-care, Stress management and Mood/affect regulation MEDICATIONS: Per medical record: Current Outpatient Prescriptions: escitalopram oxalate (LEXAPRO) 5 mg tablet Take 1 tablet by mouth once daily. MULTIVIT-MINERALS/MICHEL US FUM (MULTI VITAMIN ORAL) Take 1 tablet by mouth twice daily. POTASSIUM CITRATE ORAL Take 1 tablet by mouth once daily. MV-MIN/FA/D3/OM-3/DHA/E PA/FISH (ADULT MULTI PLUS OMEGA-3 ORAL) Take 2 tablets by mouth once daily. CALCIUM CARB/MAGNESIUM OX,CARB (ANEESH-MAG ORAL) Take 2 tablets by mouth once daily. Calcium, Magnesium, Zinc AND Vitamin D supplement No current facility-administered medications for this visit. Psychiatric Medication Issues: see med record DIAGNOSIS: [place] I: Anxiety Phobia... driving and spiders [place] II: deferred [place] III: see med record [place] IV: phobias [place] V: 53 Treatment Modality/Interventions: Cognitive Behavioral Reassurance/Supportive Problem solving Psychoeducation TREATMENT ASSESSMENT/PROGRESS: . Progressing satisfactorily. TREATMENT PLAN/GOALS: Continue in therapy focusing on self-care, stress management, affect management and anxiety management. Next appointment: as scheduled Omid Dunlap, PHD [facility] 12-16-2018 [facility] Office Visit ([facility] ) CARLA ANDERSON ([id number]) 1970 F Date Time Provider Department 12/16/18 4:00 PM ANTONIO SILVA [facility] During your visit today, we recorded the following information about you: Temperature Pulse Respiration Blood pressure 97.9 degrees 68/minute 16/minute 130/84 Weight 84.4 kg Antonio Silva MD 12/16/2018 4:49 PM Signed This note was created using Tower Cloudriter. Subjective Carla Anderson was here for follow up of depression and anxiety. She was doing much better and phobias, mood swings, and motivation were so much better. She still had increased sleep. She was planning to reengage with bahai, and was thinking of starting a hobby. Medication was well tolerated. She was scheduled for counseling. She was scheduled for a mammogram c/o Dr. Zendejas. Review of Systems Per HPI. ACTIVE PROBLEM LIST Hypercholesterolemia Essential Hypertension Heart Murmur, Systolic Depression With Anxiety Abnormal mammogram (right) Current Outpatient Prescriptions: escitalopram oxalate (LEXAPRO) 5 mg tablet Take 1 tablet by mouth once daily. MULTIVIT-MINERALS/MICHEL US FUM (MULTI VITAMIN ORAL) Take 1 tablet by mouth twice daily. POTASSIUM CITRATE ORAL Take 1 tablet by mouth once daily. MV-MIN/FA/D3/OM-3/DHA/E PA/FISH (ADULT MULTI PLUS OMEGA-3 ORAL) Take 2 tablets by mouth once daily. CALCIUM CARB/MAGNESIUM OX,CARB (ANEESH-MAG ORAL) Take 2 tablets by mouth once daily. Calcium, Magnesium, Zinc AND Vitamin D supplement No current facility-administered medications for this visit. Objective BP 130/84 (BP Site: Left Arm, BP Position: Sitting, BP Cuff Size: Regular Adult) Pulse 68 Temp 36.6 ?C (97.9 ?F) (Temporal Artery) Resp 16 Wt 84.4 kg (186 lb) BMI 27.87 kg/m? Physical Exam Constitutional: No distress. Psychiatric: She has a normal mood and affect. Her behavior is normal. Thought content normal. KP PHQ-2 Score: 1 PHQ-9 Score: 1 Generalized Anxiety Disorder Questionnaire (HARJINDER-7) HARJINDER-2 Total Score: 0 Component Latest Ref Rng AND Units 12/09/2018 Glucose 74 - 99 mg/dL 95 BUN 7 - 21 mg/dL 9 Creatinine 0.58 - 0.96 mg/dL 0.64 Sodium 136 - 144 mmol/L 137 Potassium 3.7 - 5.1 mmol/L 4.4 Chloride 97 - 105 mmol/L 103 CO2 22 - 30 mmol/L 27 Anion Gap mmol/L 7 Calcium 8.5 - 10.2 mg/dL 9.7 eGFR- >60 eGFR-All Other Races . >60 Cholesterol, Total <200 mg/dL 192 Triglyceride <150 mg/dL 76 HDL Cholesterol >39 mg/dL 48 LDL Cholesterol <100 mg/dL 129 (H) Non HDL Cholesterol <130 mg/dL 144 (H) Fasting Time hrs 12 VLDL Cholesterol <30 mg/dL 15 TC:HDL Ratio <5.10 4.00 LDL:HDL Ratio <2.54 2.69 (H) ASSESSMENT/PLAN: 1. Depression with anxiety - ICD9: 300.4, ICD10: F41.8 (primary diagnosis) Controlled. - ESCITALOPRAM 5 MG TABLET 2. Hypercholesterolemia - ICD9: 272.0, ICD10: E78.00 - good control. - Encouraged following a low carbohydrate, healthy oil intake diet. - ACC/AHA estimated 10 year ASCVD risk: 2%. To reduce risk, heart healthy diet is recommended. 3. Essential hypertension - ICD9: 401.9, ICD10: I10 - Stage 1, diet controlled. - Discussed need and benefit for weight loss. - Goal of BP <130/80 15 minutes was spent, all for discussion. Antonio Silva MD Referring Provider: ANTONIO SILVA [[id number]] Allergies As of Date: 12/16/2018 (No Known Allergies) Date Reviewed: 12/16/2018 Reviewed by: Dominique Oliver LPN - Fully Assessed Reason for Visit: 6 week follow-up [Other] Primary Visit Diagnosis:Depression with anxiety [F41.8] Other Visit Diagnoses:Hypercholeste rolemia [E78.00] Essential hypertension [I10] Order(s):escitalopram oxalate (LEXAPRO) 5 mg tabletTake 1 tablet by mouth once daily.Disp: 90 tabletRfl: 1 Prescriptions as of 12/16/2018 Sig: ESCITALOPRAM 5 MG TABLET Take 1 tablet by mouth once d* MULTI VITAMIN ORAL Take 1 tablet by mouth twice * POTASSIUM CITRATE ORAL Take 1 tablet by mouth once d* ADULT MULTI PLUS OMEGA-3 ORAL Take 2 tablets by mouth once * ANEESH-MAG ORAL Take 2 tablets by mouth once * Problem List As Of Date 12/16/2018 Noted Resolved Hypercholesterolemia [E78.00] INVALID FOR* Essential hypertension [I10] INVALID FOR* Obesity (BMI 30.0-34.9) [E66.9] INVALID FOR*12/16/2018 Heart murmur, systolic [R01.1] INVALID FOR* Depression with anxiety [F41.8] INVALID FOR* ASCUS of cervix with negative high risk HPV [R8*INVALID FOR*12/16/2018 More... Abnormal mammogram (right) [R92.8] INVALID FOR* Prescriptions ordered this encounter Disp Refills Start End ESCITALOPRAM 5 MG TABLET 90 t* 1 12/16/2018 Route: ORAL Sig: Take 1 tablet by mouth once daily. Medications Discontinued During This Encounter escitalopram oxalate (LEXAPRO) 5 mg * 30 t* 2 11/10/2018 12/16/2018 Route: ORAL Sig: Take 1 tablet by mouth once daily. Disc: Reason for discontinue is not on file. Disposition: Return in about 6 months (around 06/15/2019). Follow-up and Disposition History Recorded Encounter Status:Closed by ANTONIO SILVA MD on 12/16/18 [facility] PROGRESSon 12-16-2018 PROGRESS HNO ID: [id number] Author: Antonio Silva Service: (none) Author Type: Physician Type: Progress Notes Filed: 12/16/2018 4:49 PM Note Text: This note was created using NoteWriter. Subjective Carla Anderson was here for follow up of depression and anxiety. She was doing much better and phobias, mood swings, and motivation were so much better. She still had increased sleep. She was planning to reengage with bahai, and was thinking of starting a hobby. Medication was well tolerated. She was scheduled for counseling. She was scheduled for a mammogram c/o Dr. Zendejas. Review of Systems Per HPI. ACTIVE PROBLEM LIST Hypercholesterolemia Essential Hypertension Heart Murmur, Systolic Depression With Anxiety Abnormal mammogram (right) Current Outpatient Prescriptions: escitalopram oxalate (LEXAPRO) 5 mg tablet Take 1 tablet by mouth once daily. MULTIVIT-MINERALS/MICHEL US FUM (MULTI VITAMIN ORAL) Take 1 tablet by mouth twice daily. POTASSIUM CITRATE ORAL Take 1 tablet by mouth once daily. MV-MIN/FA/D3/OM-3/DHA/E PA/FISH (ADULT MULTI PLUS OMEGA-3 ORAL) Take 2 tablets by mouth once daily. CALCIUM CARB/MAGNESIUM OX,CARB (ANEESH-MAG ORAL) Take 2 tablets by mouth once daily. Calcium, Magnesium, Zinc AND Vitamin D supplement No current facility-administered medications for this visit. Objective BP 130/84 (BP Site: Left Arm, BP Position: Sitting, BP Cuff Size: Regular Adult) Pulse 68 Temp 36.6 ?C (97.9 ?F) (Temporal Artery) Resp 16 Wt 84.4 kg (186 lb) BMI 27.87 kg/m? Physical Exam Constitutional: No distress. Psychiatric: She has a normal mood and affect. Her behavior is normal. Thought content normal. KP PHQ-2 Score: 1 PHQ-9 Score: 1 Generalized Anxiety Disorder Questionnaire (HARJINDER-7) HARJINDER-2 Total Score: 0 Component Latest Ref Rng AND Units 12/09/2018 Glucose 74 - 99 mg/dL 95 BUN 7 - 21 mg/dL 9 Creatinine 0.58 - 0.96 mg/dL 0.64 Sodium 136 - 144 mmol/L 137 Potassium 3.7 - 5.1 mmol/L 4.4 Chloride 97 - 105 mmol/L 103 CO2 22 - 30 mmol/L 27 Anion Gap mmol/L 7 Calcium 8.5 - 10.2 mg/dL 9.7 eGFR- >60 eGFR-All Other Races . >60 Cholesterol, Total <200 mg/dL 192 Triglyceride <150 mg/dL 76 HDL Cholesterol >39 mg/dL 48 LDL Cholesterol <100 mg/dL 129 (H) Non HDL Cholesterol <130 mg/dL 144 (H) Fasting Time hrs 12 VLDL Cholesterol <30 mg/dL 15 TC:HDL Ratio <5.10 4.00 LDL:HDL Ratio <2.54 2.69 (H) ASSESSMENT/PLAN: 1. Depression with anxiety - ICD9: 300.4, ICD10: F41.8 (primary diagnosis) Controlled. - ESCITALOPRAM 5 MG TABLET 2. Hypercholesterolemia - ICD9: 272.0, ICD10: E78.00 - good control. - Encouraged following a low carbohydrate, healthy oil intake diet. - ACC/AHA estimated 10 year ASCVD risk: 2%. To reduce risk, heart healthy diet is recommended. 3. Essential hypertension - ICD9: 401.9, ICD10: I10 - Stage 1, diet controlled. - Discussed need and benefit for weight loss. - Goal of BP <130/80 15 minutes was spent, all for discussion. Antonio Silva MD Normal [facility] Basic Metabolic Panlon 12-09 Anion gap [Moles/Vol] 7 mmol/L Normal [facility] Calcium [Mass/Vol] 9.7 mg/dL Normal 8.5-10.2 [facility] Chloride [Moles/Vol] 103 mmol/L Normal 97-105 [facility] CO2 [Moles/Vol] 27 mmol/L Normal 22-30 [facility] Creatinine [Mass/Vol] 0.64 mg/dL Normal 0.58-0.96 [facility] eGFR- Amer. >60 Normal [facility] GFR/1.73 sq M predicted among non-blacks MDRD (S/P/Bld) [Vol rate/Area] mL/min/{1.73_m2} Normal [facility] Comment on above: Result Comment: eGFR (Estimated GFR) Units of measure: mL/min/1.73 meters squared eGFR is derived from the reexpressed MDRD Study equation using the following parameters: serum creatinine, age, gender and race. The creatinine assay has been calibrated to be traceable to IDMS. An eGFR <60 mL/min/1.73m2 for >3 months is consistent with chronic kidney disease. Refer to KDOQI guidelines for clinical interpretation. In patients with unstable renal function, e.g. those with acute kidney injury, the eGFR may not accurately reflect actual GFR. Glucose [Mass/Vol] 95 mg/dL Normal 74-99 [facility] Potassium [Moles/Vol] 4.4 mmol/L Normal 3.7-5.1 [facility] Sodium [Moles/Vol] 137 mmol/L Normal 136-144 [facility] Urea nitrogen [Mass/Vol] 9 mg/dL Normal 7-21 [facility] Lipid Panel, [place] 019 Cholesterol [Mass/Vol] 192 mg/dL Normal <200 [facility] Comment on above: Result Comment: <200 mg/dL, Desirable 200-239 mg/dL, Borderline high >239 mg/dL, High Performed By: #### L IPB #### [facility] [address], [place] [address] Cholesterol in HDL [Mass/Vol] 48 mg/dL Normal >39 [facility] Comment on above: Result Comment: 40-5 9 mg/dL, Acceptable >59 mg/dL, High: Negative risk factor for coronary heart disease <40 mg/dL, Low: Positive risk factor for coronary heart disease Performed By: #### L IPB #### [facility] [address], [place] [address] Cholesterol in LDL [Mass/Vol] 129 mg/dL High <100 [facility] Comment on above: Result Comment: <100 mg/dL, Optimal 100-129 mg/dL, Near optimal/above optimal 130-159 mg/dL, Borderline high 160-189 mg/dL, High >189 mg/dL, Very high Secondary prevention optimal LDL Cholesterol levels are recommended to be < 70 mg/dL Performed By: #### L IPB #### [facility] [address], [place] [address] Fasting Time 12 hrs Normal [facility] Comment on above: Performed By: #### L IPB #### [facility] [address], [place] [address] LDL:HDL Ratio 2.69 High <2.54 [facility] Comment on above: Result Comment: Refe rence: 1. National Cholesterol Education Program ATP III Guideline At-A-Glance Quick Desk Reference: National Heart, Lung, and Blood [place]. National Institutes of Health. 2001: NIH Publication No. 01-3305. 2. An International Atherosclerosis Society position paper: global recommendations for the management of dyslipidemia: executive summary, Atherosclerosis. 2014: 232(2):410-413. Performed By: #### L IPB #### [place] [id number] [place] [address] Non HDL Cholesterol 144 mg/dL High <130 [facility] Comment on above: Result Comment: <130 mg/dL, Optimal 130-159 mg/dL, Near optimal/above optimal 160-189 mg/dL, Borderline high 190-219 mg/dL, High >219 mg/dL, Very high Secondary prevention optimal non HDL Cholesterol levels are recommended to be < 100 mg/dL Performed By: #### L IPB #### [place] [address] TC:HDL Ratio 4.00 Normal <5.10 [facility] Comment on above: Performed By: #### L IPB #### [place] [phone] Triglyceride [Mass/Vol] 76 mg/dL Normal <150 [facility] Comment on above: Result Comment: <150 mg/dL, Normal 150-199 mg/dL, Borderline high 200-499 mg/dL, High >499 mg/dL, Very high Performed By: #### L IPB #### [place] [address] VLDL Cholesterol 15 mg/dL Normal <30 [facility] Comment on above: Performed By: #### L IPB #### [place] [address] CNPTOUTREACHon 11-30-2018 CNPTOUTREACH Patient Outreach (FAMPST) RAFFA,CARLA C ([id number]) 1970 F Date Time Provider Department 11/30/18 ANTONIO SILVA During your visit today, we recorded the following information about you: Allergies As of Date: 11/30/2018 (No Known Allergies) Date Reviewed: 11/10/2018 Reviewed by: Sara Dick LPN - Fully Assessed Visit Diagnosis:Medication management [Z79.899] Order(s):BASIC METABOLIC PNL [SQBMP] Order #: [id number] FUTURE LIPID PANEL BASIC [SQLIPB] Order #: [id number] FUTURE Prescriptions as of 11/30/2018 Sig: ESCITALOPRAM 5 MG TABLET Take 1 tablet by mouth once d* MULTI VITAMIN ORAL Take 1 tablet by mouth twice * POTASSIUM CITRATE ORAL Take 1 tablet by mouth once d* ADULT MULTI PLUS OMEGA-3 ORAL Take 2 tablets by mouth once * ANEESH-MAG ORAL Take 2 tablets by mouth once * Problem List As Of Date 11/30/2018 Noted Resolved Hypercholesterolemia [E78.00] INVALID FOR* Essential hypertension [I10] INVALID FOR* Obesity (BMI 30.0-34.9) [E66.9] INVALID FOR* Heart murmur, systolic [R01.1] INVALID FOR* Anxiety [F41.9] INVALID FOR* ASCUS of cervix with negative high risk HPV [R8*INVALID FOR* More... Abnormal mammogram (right) [R92.8] INVALID FOR* Encounter Status:Closed by EPIC, PRODUSER on 12/15/18 Normal [facility] Vital Signs Date Time Vital Sign Value Performing Clinician Annalee rooney 04-06-2025 10:05040 Body height 172.[address] Leah Salvador MD Work Phone: [facility] 04-06-2025 10:05-040 Body mass index (BMI) [Ratio] 33.4 kg/m2 Dr. Leah Salvador MD Work Phone: [facility] 04-06-2025 10:05040 Body temperature 98.7 [degF] Dr. Leah Salvador MD Work Phone: [facility] 04-06-2025 10:05-0400 Body weight 99.[address] Leah Salvador MD Work Phone: [facility] 04-06-2025 10:05-0400 Diastolic blood pressure 80 mm[Hg] Dr. Leah Salvador MD Work Phone: [facility] 04-06-2025 10:05-0400 Heart rate 71 /min Dr. Leah Salvador MD Work Phone: [facility] 04-06-2025 10:05-0400 Respiratory rate 16 /min Dr. Leah Salvador MD Work Phone: [facility] 04-06-2025 10:05-0400 SaO2% (BldA) [Mass fraction] 99 % Dr. Leah Salvador MD Work Phone: [facility] 04-06-2025 10:05-0400 Systolic blood pressure 118 mm[Hg] Dr. Leah Salvador MD Work Phone: [facility] 01-24-2025 12:48-0500 Diastolic blood pressure 78 mm[Hg] Dr. Leah Salvador MD Work Phone: [facility] 01-24-2025 12:48-0500 Systolic blood pressure 114 mm[Hg] Dr. Leah Salvador MD Work Phone: [facility] 01-24-2025 10:44-0500 Body mass index (BMI) [Ratio] 33.3 kg/m2 Dr. Leah Salvador MD Work Phone: [facility] 01-24-2025 10:44-0500 Body temperature 96.9 [degF] Dr. Leah Salvador MD Work Phone: [facility] 01-24-2025 10:44-0500 Body weight 99.[address] Leah Salvador MD Work Phone: [facility] 01-24-2025 10:44-0500 Heart rate 81 /min Dr. Leah Salvador MD Work Phone: [facility] 01-24-2025 10:44-0500 Respiratory rate 16 /min Dr. Leah Salvador MD Work Phone: [facility] 01-24-2025 10:44-0500 SaO2% (BldA) [Mass fraction] 96 % Dr. Leah Salvador MD Work Phone: [facility] 02-24-2024 12:59-0400 Body height 172.[address] Leah Salvador Work Phone: [facility] 02-24-2024 12:59-0400 Body mass index (BMI) [Ratio] 36.1 kg/m2 Dr. Leah Salvador Work Phone: [facility] 02-24-2024 12:59-0400 Body temperature 99 [degF] Dr. Leah Salvador Work Phone: [facility] 02-24-2024 12:59-0400 Body weight 107.[address] Leah Salvador Work Phone: [facility] 02-24-2024 12:59-0400 Diastolic blood pressure 98 mm[Hg] Dr. Leah Salvador Work Phone: [facility] 02-24-2024 12:59-0400 Heart rate 107 /min Dr. Leah Salvador Work Phone: [facility] 02-24-2024 12:59-0400 Respiratory rate 20 /min Dr. Leah Salvador Work Phone: [facility] 02-24-2024 12:59-0400 SaO2% (BldA) [Mass fraction] 97 % Dr. Leah Salvador Work Phone: [facility] 02-24-2024 12:59-0400 Systolic blood pressure 152 mm[Hg] Dr. Leah Salvador Work Phone: [facility] 08-31-2023 07:31-0400 Body height 172.[address] Leah Salvador Work Phone: [facility] 08-31-2023 07:31-0400 Body mass index (BMI) [Ratio] 35.4 kg/m2 Dr. Leah Salvador Work Phone: [facility] 08-31-2023 07:31-0400 Body temperature 97.9 [degF] Dr. Leah Salvador Work Phone: [facility] 08-31-2023 07:31-0400 Body weight 105.[address] Leah Salvador Work Phone: [facility] 08-31-2023 07:31-0400 Diastolic blood pressure 82 mm[Hg] Dr. Leah Salvador Work Phone: [facility] 08-31-2023 07:31-0400 Heart rate 64 /min Dr. Leah Salvador Work Phone: [facility] 08-31-2023 07:31-0400 Respiratory rate 16 /min Dr. Leah Salvador Work Phone: [facility] 08-31-2023 07:31-0400 SaO2% (BldA) [Mass fraction] 97 % Dr. Leah Salvador Work Phone: [facility] 08-31-2023 07:31-0400 Systolic blood pressure 122 mm[Hg] Dr. Leah Salvador Work Phone: [facility] 08-03-2023 11:03-0400 Diastolic blood pressure 102 mm[Hg] Dr. Leah Salvador Work Phone: [facility] 08-03-2023 11:03-0400 Systolic blood pressure 146 mm[Hg] Dr. Leah Salvador Work Phone: [facility] 08-03-2023 10:10-0400 Body height 172.[address] Leah Salvador Work Phone: [facility] 08-03-2023 10:10-0400 Body mass index (BMI) [Ratio] 35.2 kg/m2 Dr. Leah Salvador Work Phone: [facility] 08-03-2023 10:10-0400 Body temperature 98.3 [degF] Dr. Leah Salvador Work Phone: [facility] 08-03-2023 10:10-0400 Body weight [address] Leah Salvador Work Phone: [facility] 08-03-2023 10:10-0400 Heart rate 60 /min Dr. Leah Salvador Work Phone: [facility] 08-03-2023 10:10-0400 Respiratory rate 16 /min Dr. Leah Salvador Work Phone: [facility] 08-03-2023 10:10-0400 SaO2% (BldA) [Mass fraction] 97 % Dr. Leah Salvador Work Phone: [facility] 10-14-2022 15:56-0500 Diastolic blood pressure 96 mm[Hg] Dr. Landry Bro Work Phone: [facility] Work Phone: 10-14-2022 15:56-0500 Systolic blood pressure 142 mm[Hg] Dr. Landry Bro Work Phone: [facility] Work Phone: 10-14-2022 15:06-0500 Body temperature 96.9 [degF] Dr. Landry Bro Work Phone: [facility] Work Phone: 10-14-2022 15:06-0500 Body weight 99.[address] Landry Bro Work Phone: [facility] Work Phone: 10-14-2022 15:06-0500 Heart rate 77 /min Dr. Landry Bro Work Phone: [facility] Work Phone: 10-14-2022 15:06-0500 Respiratory rate 18 /min Dr. Landry Bro Work Phone: [facility] Work Phone: 10-14-2022 15:06-0500 SaO2% (BldA) [Mass fraction] 99 % Dr. Landry Bro Work Phone: [facility] Work Phone: 09-24-2022 13:31-0400 Body height 172.[address] Landry Bro Work Phone: [facility] Work Phone: 09-24-2022 13:31-0400 Body mass index (BMI) [Ratio] 32.5 kg/m2 Dr. Landry Bro Work Phone: [facility] Work Phone: 09-24-2022 13:31-0400 Body weight 97.[address] Landry Bro Work Phone: [facility] Work Phone: 09-17-2022 13:53-0400 Body temperature 96.2 [degF] Dr. Landry Bro Work Phone: [facility] Work Phone: 09-17-2022 13:53-0400 Body weight 95.[address] Landry Bro Work Phone: [facility] Work Phone: 09-17-2022 13:53-0400 Diastolic blood pressure 96 mm[Hg] Dr. Landry Bro Work Phone: [facility] Work Phone: 09-17-2022 13:53-0400 Heart rate 83 /min Dr. Landry Bro Work Phone: [facility] Work Phone: 09-17-2022 13:53-0400 Respiratory rate 16 /min Dr. Landry Bro Work Phone: [facility] Work Phone: 09-17-2022 13:53-0400 SaO2% (BldA) [Mass fraction] 99 % Dr. Landry Bro Work Phone: [facility] Work Phone: 09-17-2022 13:53-0400 Systolic blood pressure 156 mm[Hg] Dr. Landry Bro Work Phone: [facility] Work Phone: 08-26-2022 15:04-0400 Body mass index (BMI) [Ratio] 32.3 kg/m2 Dr. Landry Bro Work Phone: [facility] Work Phone: 08-26-2022 15:04-0400 Body temperature 98.7 [degF] Dr. Landry Bro Work Phone: [facility] Work Phone: 08-26-2022 15:04-0400 Body weight 96.[address] Landry Bro Work Phone: [facility] Work Phone: 08-26-2022 15:04-0400 Diastolic blood pressure 84 mm[Hg] Dr. Landry Bro Work Phone: [facility] Work Phone: 08-26-2022 15:04-0400 Heart rate 65 /min Dr. Landry Bro Work Phone: [facility] Work Phone: 08-26-2022 15:04-0400 Respiratory rate 14 /min Dr. Landry Bro Work Phone: [facility] Work Phone: 08-26-2022 15:04-0400 SaO2% (BldA) [Mass fraction] 99 % Dr. Landry Bro Work Phone: [facility] Work Phone: 08-26-2022 15:04-0400 Systolic blood pressure 140 mm[Hg] Dr. Landry Bro Work Phone: [facility] Work Phone: 04-09-2022 07:37-0400 Body height 172.[address] Landry Bro Work Phone: [facility] Work Phone: 04-09-2022 07:37-0400 Body mass index (BMI) [Ratio] 33.3 kg/m2 Dr. Landry Bro Work Phone: [facility] Work Phone: 04-09-2022 07:37-0400 Body temperature 97.5 [degF] Dr. Landry Bro Work Phone: [facility] Work Phone: 04-09-2022 07:37-0400 Body weight 99.[address] Landry Bro Work Phone: [facility] Work Phone: 04-09-2022 07:37-0400 Diastolic blood pressure 81 mm[Hg] Dr. Landry Bro Work Phone: [facility] Work Phone: 04-09-2022 07:37-0400 Heart rate 70 /min Dr. Landry Bro Work Phone: [facility] Work Phone: 04-09-2022 07:37-0400 Respiratory rate 17 /min Dr. Landry Bro Work Phone: [facility] Work Phone: 04-09-2022 07:37-0400 SaO2% (BldA) [Mass fraction] 96 % Dr. Landry Bro Work Phone: [facility] Work Phone: 04-09-2022 07:37-0400 Systolic blood pressure 120 mm[Hg] Dr. Landry Bro Work Phone: [facility] Work Phone: 01-09-2022 05:30-0500 Body mass index (BMI) [Ratio] 32.2 kg/m2 Dr. Landry Bro Work Phone: [facility] Work Phone: 01-09-2022 05:30-0500 Body temperature 97.3 [degF] Dr. Landry Bro Work Phone: [facility] Work Phone: 01-09-2022 05:30-0500 Body weight 96.[address] Landry Bro Work Phone: [facility] Work Phone: 01-09-2022 05:30-0500 Diastolic blood pressure 72 mm[Hg] Dr. Landry Bro Work Phone: [facility] Work Phone: 01-09-2022 05:30-0500 Heart rate 78 /min Dr. Landry Bro Work Phone: [facility] Work Phone: 01-09-2022 05:30-0500 Respiratory rate 18 /min Dr. Landry Bro Work Phone: [facility] Work Phone: 01-09-2022 05:30-0500 SaO2% (BldA) [Mass fraction] 97 % Dr. Landry Bro Work Phone: [facility] Work Phone: 01-09-2022 05:30-0500 Systolic blood pressure 117 mm[Hg] Dr. Landry Bro Work Phone: [facility] Work Phone: Encounters Encounter Date Encounter Type Care Provider Facility Start: 05-11-2025 ambulatory Leah Friendship Facility :[facility] Start: 04-06-2025 End: 04-06-[address] Leah Salvador MD Work Phone: [facility] Work Phone: Start: 04-06-2025 End: 04-06-2025 Patient encounter procedure Dony DAMON -[facility] Start: 04-06-2025 End: 04-06-2025 Patient encounter procedure Dony DAMON -[facility] Work Phone: Start: 04-06-2025 End: 04-06-[address] Leah Salvador MD Work Phone: [facility] Work Phone: Start: 04-06-2025 End: 04-06-2025 ambulatory Leahnahomi Salvador Facility:[facility] Start: 01-24-2025 End: 01-24-[address] Leah Salvador MD -[facility] Work Phone: Start: 01-24-2025 End: 01-24-2025 ambulatory Leah Madeleine Facility:[facility] Start: 12-06-2024 End: 12-06-2024 ambulatory Leah Madeleine Facility:[facility] Start: 11-28-2024 End: 11-28-2024 ambulatory Leah Friendship Facility:[facility] Start: 11-28-2024 End: 11-28-2024 ambulatory Leah Madeleine Facility:[facility] Start: 11-01-2024 End: 11-01-2024 ambulatory Leah Madeleine Facility:[facility] Start: 10-24-2024 End: 10-24-2024 ambulatory Leah Friendship Facility:[facility] Start: 08-30-2024 End: 08-30-2024 ambulatory Cosmo Syed Facility:[facility] Start: 08-29-2024 End: 08-29-2024 Emergency department patient visit Cosmo Syed Facility:[facility] Start: 08-10-2024 ambulatory Kathy Raul Facility:[facility] Start: 08-10-2024 End: 08-10-2024 ambulatory Leah Friendship Facility:[facility] Start: 06-29-2024 End: 06-29-2024 ambulatory Leah Friendship Facility:[facility] Start: 06-29-2024 End: 06-29-2024 ambulatory Leah Friendship Facility:[facility] Start: 06-13-2024 End: 06-13-2024 ambulatory Leah Madeleine Facility:[facility] Start: 2024 End: 2024 ambulatory Leah Madeleine Facility:[facility] Start: 05-02-2024 End: 05-02-2024 ambulatory Leah Friendship Facility:[facility] Start: 04-28-2024 End: 04-28-2024 ambulatory Leah Madeleine Facility:[facility] Start: 04-27-2024 End: 04-27-2024 ambulatory Leah Madeleine Facility:[facility] Start: 02-24-2024 End: 02-24-[address] Leah Salvador Work Phone: [facility] Work Phone: Start: 02-24-2024 End: 02-24-[address] Leah Salvador Work Phone: [facility]-Laboratory, [place] Start: 02-24-2024 End: 02-24-[address] Leah Salvador Work Phone: [facility] Work Phone: Start: 09-21-2023 End: 09-21-[address] Leah Salvador Work Phone: [facility] Work Phone: Start: 09-21-2023 End: 09-21-[address] Leah Salvador Work Phone: [facility], [facility] Start: 09-03-[address] [facility] Work [facility]: Start: 08-31-2023 End: 08-31-[address] Leah Salvador Work Phone: [facility] Internal Medicine Work Phone: Start: 08-07-2023 End: 08-07-[address] Leah Salvador Work Phone: [facility] Work Phone: Start: 08-07-2023 End: 08-07-[address] [facility] Work Phone: Start: 08-03-2023 End: 08-03-[address] Leah Salvador Work Phone: [facility] Work Phone: Start: 08-03-2023 End: 08-03-[address] [facility] Start: 08-03-2023 End: 08-03-[address] Leah Salvador Work Phone: [facility] Internal Medicine Work Phone: Start: 10-15-[address] [facility] Start: 10-14-2022 End: 10-14-[address] Landry Bro Work Phone: [facility] Work Phone: Start: 10-14-2022 End: 10-14-[address] Landry Bro Work Phone: [facility], [facility] Start: 10-14-2022 End: 10-14-[address] Landry Bro Work Phone: [facility] Internal Medicine Start: 09-24-2022 End: 09-24-[address] Landry Bro Work Phone: [facility] Orthopaedic [facility] Start: 09-17-2022 End: 09-17-[address] Landry Bro Work Phone: [facility] Internal Medicine Start: 09-01-2022 Non-patient / Non-visit Dr. Alilson Bro Work Phone: [facility] Start: 09-01-2022 End: 09-01-[address] Landry Bro Work Phone: [facility]-Cardiovascular Services Start: 08-26-2022 End: 08-26-[address] Landry Bro Work Phone: [facility] Internal Medicine Start: 04-09-2022 End: 04-09-[address] Landry Bro Work Phone: [facility]-Pulmonary Medicine [facility] Start: 04-08-2022 End: 04-08-[address] Landry Bro Work Phone: [facility]-Outpatient Breast Imaging Start: 04-01-2022 End: 04-01-[address] 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 Landry Bro Work Phone: [facility]-Pulmonary Medicine [facility] Procedures Date Procedure Procedure Detail Performing Clinician Start: 08-07-[address] Ganesh Salvador Work Phone: Start: 09-24-2022 Radiologic examinati on of knee Dr. Landry Bro Work Phone: Start: 04-08-2022 Screening mammography Karla Bro Work Phone: Plan of Treatment Date Care Activity Detail Author Start: 04-06-2025 Amylase [Enzymatic activity/volume] in Serum or Plasma [facility] Start: 04-06-2025 CBC W Auto Different ial panel - Blood [facility] Start: 04-06-2025 Comprehensive metabo lic 2000 panel - Serum or Plasma [facility] Start: 04-06-2025 Triacylglycerol lipase measurement [facility] Start: 08-03-2023 Patient referral [facility] Work Phone: Start: 09-05-2022 Patient referral [facility] Work Phone: Alanine aminotransfe rase [Enzymatic activity/volume] in Serum or Plasma [facility] Albumin [Mass/volume ] in Serum or Plasma [facility] Alkaline phosphatase [Enzymatic activity/volume] in Serum or Plasma [facility] Anion gap in Serum or Plasma [facility] Bilirubin, total measurement [facility] BUN/Creatinine ratio [facility] Calcium [Mass/volume ] in Serum or Plasma [facility] Carbon dioxide, tota l [Moles/volume] in Central venous blood [facility] Creatinine [Mass/vol ume] in Serum or Plasma [facility] Erythrocyte mean cor puscular volume determination [facility] Glucose [Mass/volume ] in Serum or Plasma [facility] Hematocrit [Volume F raction] of Blood [facility] Hemoglobin [Mass/volume] in Blood [facility] Leukocytes [#/volume] in Blood [facility] Mean corpuscular hem oglobin concentration determination [facility] Mean corpuscular hem oglobin determination [facility] Measurement of renal function [facility] Neutrophil count [facility] Neutrophil percent d ifferential count [facility] Patient referral [facility] Work Phone: Platelets [#/volume] in Blood [facility] Potassium measurement [facility] Radionuclide study of abdomen [facility] Red blood cell count [facility] Red cell distributio n width determination [facility] Serum chloride measurement [facility] Sodium measurement [facility] Total protein measurement [facility] Urea nitrogen [Mass/ volume] in Serum or Plasma [facility] Immunizations Immunization Date Immunization Notes [facility] Covid (Pfizer) Dr. Landry Bro Work Phone: [facility] 02-07-2021 Covid (Pfizer) Dr. Landry Bro Work Phone: [facility] 01-17-2021 Covid (Pfizer) Dr. Landry Bro Work Phone: [facility] 08-31-2020 influenza, injectabl e, quadrivalent, preservative free Dr. Leah Salvador Work Phone: [facility] 08-31-2020 influenza, seasonal, injectable Dr. Landry Bro Work Phone: [facility] Work Phone: 08-18-2017 Influenza, injectabl e, Madin Janet Canine Kidney, preservative free, quadrivalent Dr. Landry Bro Work Phone: [facility] 07-24-2017 influenza, injectabl e, quadrivalent, preservative free Dr. Leah Salvador Work Phone: [facility] 07-24-2017 influenza, seasonal, injectable Dr. Landry Bro Work Phone: [facility] Work Phone: Payers Date Payer Category Payer Unknown 2024 Self-pay [id number] 2024 Unknown [id number] Unknown [id number] Unknown [id number] 2.16.8 [id number] Unknown [id number] 2.16.8 [id number] Unknown [id number] 2.16.8 40.1.904838.3.579.2.462 Unknown [id number] 2.16.8 40.1.188669.3.579.2.462 Unknown [id number] 2.16.8 40.1.513868.3.579.2.462 Unknown [id number] 2.16.8 40.1.627339.3.579.2.462 Unknown [id number] 2.16.8 40.1.530585.3.579.2.462 Unknown [id number] 2.16.8 40.1.451597.3.579.2.462 Unknown [id number] 2.16.8 40.1.467789.3.579.2.462 Unknown [id number] 2.16.8 40.1.234781.3.579.2.462 Unknown [id number] 2.16.8 40.1.227556.3.579.2.462 Unknown [id number] 2.16.8 40.1.640742.3.579.2.462 Unknown [id number] 2.16.8 40.1.109964.3.579.2.462 Unknown [id number] 2.16.8 40.1.597594.3.579.2.462 Unknown [id number] 2.16.8 40.1.428600.3.579.2.462 Unknown [id number] 2.16.8 40.1.799481.3.579.2.462 Unknown [id number] 2.16.8 40.1.810954.3.579.2.462 Unknown [id number] 2.16.8 40.1.185836.3.579.2.462 Unknown [id number] 2.16.8 40.1.947976.3.579.2.462 Unknown [id number] 2.16.8 40.1.671467.3.579.2.462 Unknown [id number] 2.16.8 40.1.913772.3.579.2.462 Social History Date Type Detail Facility Start: 04-09-2022 End: 02-24-2024 Tobacco smoking status NHIS Unknown if ever smoked [facility] Start: 09-06-2020 Non-smoker [facility] Start: 1970 Sex Assigned At Female [facility] Start: 12-06-2024 Tobacco smoking stat us NHIS Never smoked tobacco (finding) [facility] Clinical Notes 04-01-2022 to 04-06-2025 Note Date & Type Note Facility 04-06-2025 Progress note [facility] 04-06-2025 Progress note Note Date/Time April 06, 2025 11:04am [facility] [address] [place] [address] [place] [address] OFFICE VISIT Date of Service: 04/06/25 MR#: [id number] Acct: [id number] Name: JUSTINCARLA REBECCA Rep #: [id number] : 1970 Provider: NELSON Giraldo Age/Sex: 54/F Location: [facility] Status: Signed Intake Vital Signs 01/24/25 10:44 04/06/25 10:05 Height 5 ft 8 in 5 ft 8 in Weight: 219 lb 8 oz 220 lb BMI 33.3 33.4 BP 142/80 H 118/80 Blood Pressure Location Lt brachial Lt brachial Position Sitting Sitting Respiration 16 16 Pulse 81 71 Pulse Source Monitor Monitor Temp 96.9 F L 98.7 F Temp Source Temporal Temporal Pulse Oximetry (%) 96 99 Oxygen Delivery Method room air room air Intake Visit Reasons: UPPER RT SIDE PAIN 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 Is patient in pain?: Yes (RUQ) Pain scale (1-10): 6 Allergies No Known Allergies Allergy (Verified 04/06/25 09:53) Medications ?Medication ?Instructions ?Recorded ?Confirmed ?Type semaglutide 0.25 mg or 0.5 mg (2 0.5 mg (0.736 mL) sub cut QWEEK #3 06/22/24 04/06/25 Rx mg/3 mL) subcutaneous pen injector mL (Ozempic) lisinopril 20 mg tablet See Rx Instructions .Route 1 12/27/23 04/06/25 Rx .COMPLEX #90 tabs escitalopram oxalate 5 mg tablet 5 mg PO DAILY #90 tab s 01/11/25 04/06/25 Rx rosuvastatin 5 mg tablet 5 mg PO DAILY #90 tabs 03/2704/06/25 Rx famotidine 20 mg tablet 20 mg PO BID #30 tabs 04/06/25 Rx Nurse's Note: Pt still having intermittent RUQ pain, was addressed w/ Dr. Salvador. due to theER visit in 08/2024 advised could be biliary colic, pt did nto want addition testing at time of last OV. Pt states it is happening more frequent. States tends to happen when she eats high fat/sugar foods and drinks. She has tried to steer clear and today it is a bit worse. Pt states when it happens it is there all the time until it eventually goes away, She states that the pain is a Dull achey pressure, that is in the bottom of R shoulder blade along w/ RUQ. Pt states she has had more loose stools but has attributed that and the nausea to Ozempic, she states she was wanting to come off of this and would discuss w/ pcpat next appointment. Denies abdominal cramping,reflux,vomiting,SOB. Has been treating w/ diet change, and ibuprofen, leaning forward to try and alleviate pressure which is not longer helping. PFSH Medical History Wears contact lenses Wears glasses History of IBS Non-smoker Shortness of breath on exertion Hypertension Sleep apnea Fatigue Throat tightness Difficulty swallowing Anxiety and depression Heart murmur Hyperlipidemia High blood pressure Frequent headaches Anemia Surgical History Hx of tubal ligation History of colonoscopy History of shoulder surgery History of excision of pilonidal cyst History of tonsillectomy and adenoidectomy History of loop electrosurgical excision procedure (LEEP) Family History Mother Anxiety Depression Breast cancer Father Cancer Melanoma Brother Cancer Hodgkin lymphoma Grandmother Breast cancer Social History household members: spouse current occupational status: employed 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 She has been having this intermittently since August. She was evaluated in the ED at that time. She did have an outpatient U/S of the gallbladder which was normal. She had thought thatthings were doing better / had subsided until she started to have some return ofsymptoms recently. She states that she always had a little nausea with some fullness / bloating at the same time this was thought to be attributed to the Semaglutide. She states that she has occasional heartburn / belching with certain foods that she would expect at the same time nothing persistent or consistent. She had a history of some IBS when she was in high school but nothing after She does not currently take supplements or probiotics She states that the past few days she has tried to be drinking more water. She admits that she is a pretty big pop drinker. ROS Const Constitutional: No body ache, chills, excessive sweating, fatigue, fever(s), frequent falls, headache(s), snoring, weakness, sleep problems or change in appetite Eyes Eyes: No blurry vision, change in vision, eye pain or Light sensitivity ENT ENT: No abnormal hearing, ear or mastoid pain, tinnitus, nasal congestion, headache(s), neck pain or sore throat Resp Respiratory: No cough, shortness of breath, snoring or wheezing Cardio Cardiology: No chest pain at rest, chest pain with exertion, excessive sweating,shortness of breath, dyspnea on exertion, lightheadedness, orthopnea or palpitations Gastro GI: Positive for abdominal pain, loose stools, nausea/dyspepsia and other; No change in bowel habits, constipation, cramping, diarrhea or vomiting Genitourinary-Female: No burning urination, painful urination, urinary incontinence, urinary frequency, abnormal vaginal bleeding or pelvic pain Musc Musculoskeletal: No abnormal gait, joint pain, back pain, limited range of motion, neck pain or numbness Skin Skin: No dry skin, redness, lesions, itchy eyes, rash or wounds Neuro Neurology: No abnormal gait, abnormal hearing, weakness, frequent falls, headache(s), memory loss or numbness Psych Psychiatric: No anxiety, No change in appetite, No depression, No memory loss and No Thoughts of harming yourself/Others Endo Endocrine: No cold intolerance, excessive sweating, fatigue, flushing, heat intolerance, increased thirst/drinking or increased hunger Aller/Imm Allergy/Immunologic: No itchy eyes, seasonal allergy symptoms, hives or wheezing Flash/Lymp Hematologic/Lymphatic: No easy bleeding, easy bruising, enlarged lymph nodes or other Exam Const General: cooperative, healthy appearing, comfortable, no acute distress, well developed and well groomed Nutritional Appearance: average body habitus and overweight Orientation: alert, awake and oriented x3 Limitations: mental status not altered [facility] Head: normocephalic and atraumatic Ears: hearing grossly normal bilaterally Resp Effort & Inspection: normal respiratory effort, able to speak in complete sentences and symmetric chest movement Auscultation: Bilateral: Clear to Auscultation Cardio Rate: regular rate Rhythm: regular rhythm Heart Sounds: S1 normal and S2 normal GI Auscultation: normal bowel sounds Palpation: soft and tender in the RUQ and Uribe's sign positive Neuro General: patient alert, patient awake, patient oriented x3, gait normal and moves all extremities Cognition: normal cognition Speech: speech normal Gait: normal gait Psych Appearance: grossly normal Mental Status: mental status grossly normal Mood: congruent mood Affect: normal affect Speech and Movement: speech and movement normal Attitude: cooperative Coding Level of Care Code Off vis,est,level 3 Diagnoses Right upper quadrant abdominal pain R10.11 Class 1 obesity without serious comorbidity with body mass index (BMI) of 33.0 to 33.9 in adult, unspecified obesity type E66.9; Z68.33 Obesity type: unspecified obesity type Obesity classification: adult class 1 (BMI 30 - 34.9) Serious obesity comorbidity presence: without serious comorbidity Body mass index: BMI 33.0-33.9 Assessment and Plan Assessment and Plan (1) Right upper quadrant abdominal pain: Status: Acute Plan: Patient presents the today with right upper quadrant pain for the last couple ofdays however she has had some intermittent episodes since last fall. In generalshe has had some GI symptoms including some nausea some loose stools as well as some bloating/fullness which she attributed to her semaglutide. She did have anER evaluation back in August as well as an outpatient ultrasound which showed anormal structure of the gallbladder. Today in the office patient has some evident right upper quadrant tenderness with positive Uribe sign. At this timeI do think that her symptoms point more to the gallbladder and therefore with already having a normal structural ultrasound we will go ahead with a HIDA scan. Will get some basic labs to rule out acute cholecystitis patient is to continueto monitor for fevers, chills, worsening right upper quadrant pains, vomiting, or other symptoms. If she has any of these acute symptoms she is to seek attention through the emergency department. In the meantime patient is to avoidconsumption of fatty/greasy foods. (2) Obesity: Status: Acute Qualifiers: Obesity type: unspecified obesity type Obesity classification: adult class 1 (BMI 30 - 34.9) Serious obesity comorbidity presence: without serious comorbidity Body mass index: BMI 33.0-33.9 Qualified Code(s): E66.9 - Obesity,unspecified; Z68.33 - Body mass index [BMI] 33.0-33.9, adult Plan: Patient has been on semaglutide now for quite a while. She states initially she lost the weight but states that she has been pretty stagnant without any changes in her weight. She is concerned that she has never had GI symptoms until she started the GLP-1 and now she feels like she is having more side effects than she has benefit from the medication. We discussed that this definitely is not a life-saving medication and therefore if she really is having more complications/side effects than benefit then stopping it is definitely an option for her. She could at least then see if her symptoms improve or resolve. She can always go back on or try a different GLP-1 medication in the future and see if the side effects/symptoms return. Orders: Orders Hepatobilliary Img w/Pharm Int Today R10.11 - Right upper quadrant pain CBC W/Diff, Automated Today R10.11 - Right upper quadrant pain Comprehensive Metabolic Profil Today R10.11 - Right upper quadrant pain Amylase Today R10.11 - Right upper quadrant pain Lipase Today R10.11 - Right upper quadrant pain Medications: New famotidine 20 mg PO BID 30 tabs 0RF 04/06/25 1104 <Electronically signed by Dony DAMON> Date _ Dony DAMON Cosigner Signature: Date (if applicable) CC: ~ [facility] Work Phone: 1(929) 633-351803-04-2025 Evaluation note* Diagnosis Onset Date Resolution Status Admit Date Asthma acute January 24 10:41am Essential hypertension acute [facility] 2024 10:41am RUQ abdominal pain noneactive January 24, 2025 10:41am Right sided sciatica noneactive [facility] 2024 10:41am Moderate major depression noneactive January 24, 2025 10:41am Intermittent chest pain noneactive [facility] 2024 10:41am Type 2 diabetes mellitus noneactive January 24, 2025 10:41am Obesity (BMI 30-39.9) noneactive Jan 10:41am Obesity acute April 06, 2025 9:44am Right upper quadrant abdomin al pain acute April 06, 2025 9 :44am [facility] Work Phone: [phone] NotePap Smear Specimen AdequacyMay 2021 12:00pmCommentSatisfactory for evaluation. Endocervical and/or squamous metaplasticcells (endocervical component)are present.[facility] A#[id number] Work Phone: Comment on above:Satisfactory for evaluation. Endocervical and/or squamous metaplasticcells (endocervical component)are present.04-01-2022 NotePap Smear Specimen AdequacyMay 2021 12:00pmComment Satisfactory for evaluation. Endocervical and/or squamous metaplasticcells (endocervical component)are present.[facility] A#[id number] [facility] Work Phone: Comment on above:Satisfactory for evaluation. Endocervical and/or squamous metaplasticcells (endocervical component)are present.Evaluation note* Diagnosis Onset Date Resolution Status Asthma acute Obesity acute Asthma acute [facility] Work Phone: Evaluation note* Diagnosis Onset Date Resolution Status Asthma acute Heart murmur chronic Moderate major depression no neactive Establishing care with new doctor, encounter for noneactive Mixed hyperlipidemia noneact chapis Left knee pain noneactive Vitamin D deficiency noneact chapis High blood pressure chronic Migraine noneactive Bilateral primary osteoarthritis of knee noneactive Bilateral patellofemoral syndrome noneactive Asthma acute Essential hypertension acute Moderate major depression no neactive Headache noneactive Left knee pain noneactive [facility] Work Phone: Evaluation note* Diagnosis Onset Date Resolution Status Asthma acute Essential hypertension acute Moderate major depression no neactive Urinary frequency noneactive Obesity (BMI 30.0-34.9) none active Vitamin D deficiency noneact chapis [facility] Work Phone: Evaluation note* Diagnosis Onset Date Resolution Status Asthma acute Essential hypertension acute Moderate major depression no neactive Urinary frequency noneactive Obesity (BMI 30.0-34.9) none active Vitamin D deficiency noneact chapis Asthma acute Essential hypertension acute Moderate major depression no neactive Mixed hyperlipidemia noneact chapis Obesity (BMI 30.0-34.9) none active Vitamin D deficiency noneact chapis [facility] Work Phone: Evaluation note* Diagnosis Onset Date Resolution Status Essential hypertension acute Fatigue acute Palpitations acute Anxiety and depression chron ic Hyperlipidemia chronic [facility] Work Phone: Reason for referral (narrative)No reason for referral information availablePortage [facility] Services Work Phone: Summary Purpose Family History No Family History Records Found Relationship Condition Age at Onset Recorded Date/T hailey mother Anxiety Unknown Depression Unknown father Malignant neoplasm Unknown brother Malignant neoplasm Unknown Hodgkin lymphoma Unknown grandmother Malignant neoplasm of breast Unknown Relationship Condition Age at Onset Recorded Date/T hailey mother Anxiety Unknown Depression Unknown Malignant neoplasm of breast Unknown father Malignant neoplasm Unknown brother Malignant neoplasm Unknown Hodgkin lymphoma Unknown grandmother Malignant neoplasm of breast Unknown Advance Directives No Advanced Directives Records Found Advance Directive Response Recorded Date/ Time Living Will No May 07, 2021 9:38am Power of Communications And Signals Supervisor No May 07 1 9:38am Advance Directive Response Recorded Date/ Time Living Will No May 07, 2021 8:38am Power of Communications And Signals Supervisor No May 07 1 8:38am Advance Directive Response Recorded Date/ Time Living Will No February 24, 2024 11:16am Power of Communications And Signals Supervisor No February 23 4 11:16am Advance Directive Response Recorded Date/ Time Advance Directives No December 06, 2024 8:07am Chief Complaint and Reason for Visit Chief Complaint 6 wk FU SCREENING 3 M FU Reason for Visit Asthma Obesity Asthma Chief Complaint 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 MURMUR Amb Documentation HEADACHE, BP ISSUES BILAT KNEES Xray room 2 BP CLARIFICATIONS/CONCERNS PATELLOFEMORAL LR KNEE/RX HERE Reason for Visit Asthma Heart murmur Moderate major depression Establishing care with new doctor, encounter for Mixed hyperlipidemia Left knee pain Vitamin D deficiency High blood pressure Migraine Bilateral primary osteoarthritis of knee Bilateral patellofemoral syndrome Asthma Essential hypertension Moderate major depression Headache Left knee pain Chief Complaint 6 M FU, WANTS TO DIS CUSS WEIGHT LOSS MEDICATION Reason for Visit Asthma Essential hypertension Moderate major depression Urinary frequency Obesity (BMI 30.0-34.9) Vitamin D deficiency Chief Complaint 6 M FU, WANTS TO DIS CUSS WEIGHT LOSS MEDICATION 5 WK FU Reason for Visit Asthma Essential hypertension Moderate major depression Urinary frequency Obesity (BMI 30.0-34.9) Vitamin D deficiency Asthma Essential hypertension Moderate major depression Mixed hyperlipidemia Obesity (BMI 30.0-34.9) Vitamin D deficiency Chief Complaint ACUTE HEART FLUTTERI NG Reason for Visit Essential hypertensi on Fatigue Palpitations Anxiety and depression Hyperlipidemia Chief Complaint Admit Date fu January 24, 2025 10:4 1am UPPER RT SIDE PAIN April 06, 2025 9:44a m Reason for Visit Admit Date Asthma January 24, 2025 10:4 1am Essential hypertension January 24, 2025 1 0:41am RUQ abdominal pain January 24, 2025 10:4 1am Right sided sciatica January 24, 2025 10: 41am Moderate major depression January 24 10:41am Intermittent chest pain January 24, 2025 10:41am Type 2 diabetes mellitus January 24, 2025 10:41am Obesity (BMI 30-39.9) January 24, 2025 10 :41am Obesity April 06, 2025 9:44a m Right upper quadrant abdominal pain April 06, 2025 9:44am Additional Source Comments INFORMATION SOURCE (unrecogn ized section and content) DATE CREATED AUTHOR 11/22/2019 [facility] DATE CREATED AUTHOR AUTHOR'S ESPERANZA ATSRINIVAS 04/25/2025 [facility] Goals (unrecognized section and content) Goals may be documented in a n alternate sectionGoals may be documented in an alternate sectionGoals may be documented in an alternate sectionGoals may be documented in an alternate sectionGoals may be documented in an alternate sectionGoals may be documented in an alternate sectionGoals may be documented in an alternate sectionGoals may be documented in an alternate sectionGoals may be documented in an alternate section Care Teams (unrecognized sec tion and content) Team Status: Active Member Role Status Dates Dr. Leah Salvador MD Primary Care Provider Active Team Status: Inactive Member Role Status Dates Dr. Leah Salvador MD Primary Care Pro vider, Attending Provider, Referring Provider Active Team Status: Active Member Role Status Dates Dr. Leah Salvador MD Primary Care Provider Active Health Risk Assessment Attending Provider Active Team Status: Inactive Member Role Status Dates Dr. Leah Salvador MD Primary Care Provider, Attendi ng Provider Active Team Status: Inactive Member Role Status Dates Dr. Leah Salvador MD Primary Care Provider, Referri ng Provider Active NELSON Ellis Attending Provider Active Team Status: Inactive Member Role Status Dates Dr. Leah Salvador MD Primary Care Provider Active NESLON Ellis Attending Provider, Referring Prov ider Active Team Status: Inactive Member Role Status Dates Dr. Leah Salvador MD Primary Care Provider Active Start: January 24, 2025 End: January 24, 2025 Dr. Leah Salvador MD Attending Provider Active Start: January 24, 2025 End: January 24, 2025 Dr. Leah Salvador MD Referring Provider Active Start: January 24, 2025 End: January 24, 2025 Team Status: Inactive Member Role Status Dates Dr. Leah Salvador MD Primary Care Provider Active Start: April 06, 2025 End: April 06, 2025 Dr. Leah Salvador MD Referring Provider Active Start: April 06, 2025 End: April 06, 2025 NELSON Ellis Attending Provider Active St art: April 06, 2025 End: April 06, 2025 Team Status: Active Member Role Status Dates Dr. Leah Salvador MD Primary Care Provider Active Start: April 06, 2025 NELSON Ellis Attending Provider Active St art: April 06, 2025 NELSON Ellis Referring Provider Active St art: April 06, 2025 Team Status: Inactive Member Role Status Dates Dr. Leah Salvador MD Primary Care Provider Active Start: April 06, 2025 End: April 06, 2025 NELSON Ellis Attending Provider Active St art: April 06, 2025 End: April 06, 2025 Dony DAMON PA Referring Provider Active St art: April 06, 2025 End: April 06, 2025 FOR RECORDS PERTAINING TO PATIENTS WHO ARE OR HAVE BEEN ENROLLED IN A CHEMICAL DEPENDENCY/SUBSTANCEABUSE PROGRAM, SOME INFORMATION MAY BE OMITTED. This clinical summary was aggregated from multiple sources. Caution should be exercised in using it in the provision of clinical care. This summary normalizes information from multiple sources, and as a consequence, information in this document may materially change the coding, format and clinical context of patient data. In addition, data may be omitted in some cases. CLINICAL DECISIONS SHOULD BE BASED ON THE PRIMARY CLINICAL RECORDS. [employer] [facility]. provides no warranty or guarantee of the accuracy or completeness of information in this document.
== END | disposition home or self-care (01) ==
LOC: NM 09:33
PROVIDERS: PCP Internal Medicine; Referring Provider Physician Assistant; Visit Provider Physician Assistant
DX: R10.11 Right upper quadrant pain (principal)
CPT/HCPCS: 78227; A9537; J2805

== ENCOUNTER 2025-05-29 07:38 | Day surgery (SDC) | payer BC, SELFPAY ==
--- NOTE | 2025-05-25 14:26 | PAT.ANESEVAL ---
Pre-Assessment Diagnosis/Proposed Procedure Planned Operative Procedure(s): Robotic Cholecystectomy Anesthesia History Anesthesia History - instructional systems specialist: Anesthesia History - instructional systems specialist Hx Hospitalization No 05/25/25 10:04 Any Problems With Anesthesia No 05/25/25 10:04 Cholinesterase deficiency No 05/25/25 10:04 You/Your Family Experience No 05/25/25 10:04 fever (hyperthermia) with Relationship Recent Exposure to Contagious No 02/24/24 11:16 Disease Does patient have nerve No 05/25/25 10:04 stimulator Patient instructed to have device shut off --Does patient have Pacemaker or ICD? When Was Last Pacemaker Check QUESTION #4 FULL TEXT: You/Your Family Experience fever (hyperthermia) with Anesthesia Last Oral Intake Last Oral intake: Last Oral Intake NPO since Meds taken in AM with sips of water? Meds patient instructed to take am of surgery PONV PONV - instructional systems specialist: PONV - instructional systems specialist Female Yes 05/25/25 10:04 HX of Motion Sickness Yes 05/25/25 10:04 HX of N/V After Surgery No 05/25/25 10:04 Non-Smoker Yes 05/25/25 10:04 Duration of Surgery greater Yes 05/25/25 10:04 than 60 minutes Number of Risk Factors 4 05/25/25 10:04 PONV Score Severe Risk 05/25/25 10:04 Height & Weight Height & Weight: Anesthesia: Height & Weight Height 5 ft 8 in 05/23/25 13:44 Respiratory Assessment Respiratory Assessment - instructional systems specialist: Respiratory Tract Infection Hx - instructional systems specialist Hx Respiratory Tract Infection No 05/25/25 10:04 STOP Sleep Apnea STOP Sleep Apnea - instructional systems specialist: STOP Sleep Apnea - instructional systems specialist Hx Hypertension Yes 05/25/25 10:04 Hx Sleep Apnea No 05/25/25 10:04 CPAP No 02/24/24 11:16 BIPAP Do you snore loudly (louder No 05/25/25 10:04 than talking or can be heard Do you often feel tired/ No 05/25/25 10:04 fatigued/ sleepy during daytime? Has anyone observed you stop No 05/25/25 10:04 breathing during sleep? STOP Results Negative 05/25/25 10:04 QUESTION #5 FULL TEXT : Do you snore loudly (louder than talking or can be heard through closed doors)? Tobacco Use History Tobacco Use History - instructional systems specialist: Tobacco Use History - instructional systems specialist Tobacco Use Smoking Status Never smoker 05/25/25 10:04 Hx Tobacco Use No 05/25/25 10:04 Years Smoking Packs Smoked per Day Smoking Cessation Date was within the last 15 years Hx Smoking Cessation Date Hx Smoking Cessation Counseling Hematologic Medial History Hematologic Hx - instructional systems specialist: Hematologic Medical Hx - councilman Hx of Blood Transfusion No 05/25/25 10:04 Hx of Transfusion in last 3 No 05/25/25 10:04 Months Date of Last Transfusion (if within last 3 months) Ever experience any problems No 05/25/25 10:04 with transfusion(s)? Specify any problems Hx of Preganancy in last 3 No 05/25/25 10:04 Months Nurse Filling Out Transfusion [facility] 05/25/25 10:04 & Questions: Date: 05/25/25 05/25/25 10:04 Time: 10:10 05/25/25 10:04 Patient unable to answer at this time (ie. confused, unrespo /Reproduction History /Reproductive History - instructional systems specialist: /Reproductive Hx- instructional systems specialist Hx Now No 05/25/25 10:04 Gestational Age (in weeks): EDC: Hx Hx Para Hx Section SAB No 05/25/25 10:04 [facility] Medical History (Updated 05/25/25 @ 10:09 by Rosario Becerril) Depression Anxiety High cholesterol History of stress test History of echocardiogram Cardiology follow-up encounter Wears contact lenses Wears glasses History of IBS Non-smoker Shortness of breath on exertion Hypertension Sleep apnea Fatigue Throat tightness Difficulty swallowing Anxiety and depression Heart murmur Hyperlipidemia High blood pressure Frequent headaches Anemia Home Medications ?Medication ?Instructions ?Recorded ?Last Taken ?Type rosuvastatin 5 mg tablet 5 mg PO DAILY #90 tabs 03/27/25 Unknown Rx escitalopram oxalate 5 mg tablet 5 mg PO DAILY #90 TABLETS 04/12/25 Unknown Rx lisinopril 20 mg tablet See Rx Instructions .Route 04/24/25 Unknown Rx .COMPLEX #90 tabs Allergy/AdvReac Type Severity Reaction Status Date / Time No Known Allergies Allergy Verified 05/25/25 10:03 Family History (Updated 05/23/25 @ 13:44 by Teersa Mckeon) Mother Anxiety Depression Breast cancer Heart disease Hypertension Father Cancer Melanoma Diabetes Heart disease Brother Cancer Hodgkin lymphoma Grandmother Breast cancer Sister Asthma Surgical History Hx of tubal ligation History of colonoscopy History of shoulder surgery History of excision of pilonidal cyst History of tonsillectomy and adenoidectomy History of loop electrosurgical excision procedure (LEEP) Social History household members: spouse current occupational status: employed 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 Shyam Valencia, household personal assistant, after she had an abnormal nuclear stress test that demonstrated septal and apical ischemia. It was recommended that she have a cardiac cath done and she had a cardiac cath with Dr. Muniz on December 06, 2024. The cardiac cath did not demonstrate any abnormalities and she has been medically managed since then. Pertinent Findings EKG Perinent findings: EKG done on November 28, 2024: Sinus Rhythm WITHIN NORMAL LIMITS Stress test pertinent findings: Done on August 10, 2024 demonstrated abnormalities consistent with septal and apical ischemia. Echo (EF%) pertinent findings: Echo done on September 01, 2022: Normal LV size with an LVEF estimated around 65%. PASP 25 mmHg. Left atrium mildly enlarged. Global longitudinal strain is normal. Heart catheterization pertinent findings: Cath done 12/06/24: CONCLUSIONS Normal coronary arteries Normal LV size, wall motion,and systolic function RECOMMENDATIONS Medical therapy Recommendation Anesthesia Recommendation Anesthesia recommendation: OPTIMIZED for anesthesia
[2025-05-29] VITALS (16 sets, daily range): BP systolic 84–134; BP diastolic 55–79; PULSE 54–99; RESP 14–18; TEMP 36.1–36.8; O2SAT 88–100; BMI 35.5
--- NOTE | 2025-05-29 07:53 | PCM.PRE.AN2 ---
ASA Classification* ASA Classification ASA Classification: 2 Assessment & Plan Anesthesia* Anesthesia Assessment Anesthesia Assessment: Discussed sedation and/or anesthesia options, risks, benefits, and alternatives with patient/parents/legal guardian/POA. Questions invited. The patient/parents/legal guardian/POA seems to understand and agrees to proceed with anesthesia plan. Reviewed the physical assessment, medical history, allergy history and patient home medications list prior to surgery/procedure/anesthetic and documented any changes. Performed airway and anesthesia risk assessments. Anesthesia Type Anesthesia Type: General Anesthesia Focused Assessment* Airway Assessment Mouth opens: >3 cm Mallampati Score: II Labs Anesthesia Preop lab: CBC WBC 7.2 K/mm3 (4.4-11.0) 04/06/25 11:04 04/06/25 RBC 4.97 M/mm3 (4.2-5.4) 04/06/25 11:04 04/06/25 Hgb 14.2 g/dL (12.0-15.0) 04/06/25 11:04 04/06/25 Hct 42.7 % (37-47) 04/06/25 11:04 04/06/25 Plt Count 266 K/mm3 (150-450) 04/06/25 11:04 04/06/25 CHEMISTRY Potassium 4.7 mmol/L (3.3-5.1) 04/06/25 11:04 04/06/25 Sodium 137 mmol/L (133-145) 04/06/25 11:04 04/06/25 BUN 8 mg/dL (4-19) 04/06/25 11:04 04/06/25 Creatinine 0.58 mg/dL (0.70-1.20) L 04/06/25 11:04 04/06/25 Glucose 88 mg/dL (70-99) 04/06/25 11:04 04/06/25 TSH 1.15 uIU/mL (0.358-3.74) 02/24/24 14:30 02/24/24 COAG PT 13.0 SECONDS (11.7-14.9) 11/28/24 14:10 11/28/24 Pre-Assessment Diagnosis/Proposed Procedure Planned Operative Procedure(s): Robotic Cholecystectomy Anesthesia History Anesthesia History - home health care coordinator: Anesthesia History - home health care coordinator Hx Hospitalization No 05/25/25 10:04 Any Problems With Anesthesia No 05/25/25 10:04 Cholinesterase deficiency No 05/25/25 10:04 You/Your Family Experience No 05/25/25 10:04 fever (hyperthermia) with Relationship Recent Exposure to Contagious No 02/24/24 11:16 Disease Does patient have nerve No 05/25/25 10:04 stimulator Patient instructed to have device shut off --Does patient have Pacemaker or ICD? When Was Last Pacemaker Check QUESTION #4 FULL TEXT: You/Your Family Experience fever (hyperthermia) with Anesthesia Last Oral Intake Last Oral intake: Last Oral Intake NPO since Meds taken in AM with sips of water? Meds patient instructed to take am of surgery PONV PONV - home health care coordinator: PONV - home health care coordinator Female Yes 05/25/25 10:04 HX of Motion Sickness Yes 05/25/25 10:04 HX of N/V After Surgery No 05/25/25 10:04 Non-Smoker Yes 05/25/25 10:04 Duration of Surgery greater Yes 05/25/25 10:04 than 60 minutes Number of Risk Factors 4 05/25/25 10:04 PONV Score Severe Risk 05/25/25 10:04 Height & Weight Height & Weight: Anesthesia: Height & Weight Height 5 ft 8 in 05/23/25 13:44 Respiratory Assessment Respiratory Assessment - home health care coordinator: Respiratory Tract Infection Hx - home health care coordinator Hx Respiratory Tract Infection No 05/25/25 10:04 STOP Sleep Apnea STOP Sleep Apnea - home health care coordinator: STOP Sleep Apnea - home health care coordinator Hx Hypertension Yes 05/25/25 10:04 Hx Sleep Apnea No 05/25/25 10:04 CPAP No 02/24/24 11:16 BIPAP Do you snore loudly (louder No 05/25/25 10:04 than talking or can be heard Do you often feel tired/ No 05/25/25 10:04 fatigued/ sleepy during daytime? Has anyone observed you stop No 05/25/25 10:04 breathing during sleep? STOP Results Negative 05/25/25 10:04 QUESTION #5 FULL TEXT : Do you snore loudly (louder than talking or can be heard through closed doors)? Tobacco Use History Tobacco Use History - home health care coordinator: Tobacco Use History - home health care coordinator Tobacco Use Smoking Status Never smoker 05/25/25 10:04 Hx Tobacco Use No 05/25/25 10:04 Years Smoking Packs Smoked per Day Smoking Cessation Date was within the last 15 years Hx Smoking Cessation Date Hx Smoking Cessation Counseling Hematologic Medial History Hematologic Hx - home health care coordinator: Hematologic Medical Hx - ordnance engineering technician Hx of Blood Transfusion No 05/25/25 10:04 Hx of Transfusion in last 3 No 05/25/25 10:04 Months Date of Last Transfusion (if within last 3 months) Ever experience any problems No 05/25/25 10:04 with transfusion(s)? Specify any problems Hx of Preganancy in last 3 No 05/25/25 10:04 Months Nurse Filling Out Transfusion [facility] 05/25/25 10:04 & Questions: Date: 05/25/25 05/25/25 10:04 Time: 10:10 05/25/25 10:04 Patient unable to answer at this time (ie. confused, unrespo /Reproduction History /Reproductive History - home health care coordinator: /Reproductive Hx- home health care coordinator Hx Now No 05/25/25 10:04 Gestational Age (in weeks): EDC: Hx Hx Para Hx Section SAB No 05/25/25 10:04 Active Medications Active Medications: Current Medications Generic Name Dose Route Start Last Admin Trade Name Freq PRN Reason Stop Dose Admin Indocyanine Green 3.75 mg/ N/A 1.5 mls @ 999 mls/hr 05/29/25 09:15 IV 05/29/25 09:16 PREOP ONE Cefotetan Disodium 2 gm/ 100 mls @ 200 mls/hr 05/29/25 09:15 Sodium Chloride IV 05/29/25 09:44 INTRAOP ONE Lactated Ringer's 1,000 mls @ 15 mls/hr 05/29/25 08:00 IV .Q48H ULICES PFSH Medical History Depression Anxiety High cholesterol History of stress test History of echocardiogram Cardiology follow-up encounter Wears contact lenses Wears glasses History of IBS Non-smoker Shortness of breath on exertion Hypertension Sleep apnea Fatigue Throat tightness Difficulty swallowing Anxiety and depression Heart murmur Hyperlipidemia High blood pressure Frequent headaches Anemia Home Medications ?Medication ?Instructions ?Recorded ?Last Taken ?Type rosuvastatin 5 mg tablet 5 mg PO DAILY #90 tabs 03/27/25 Unknown Rx escitalopram oxalate 5 mg tablet 5 mg PO DAILY #90 TABLETS 04/12/25 Unknown Rx lisinopril 20 mg tablet See Rx Instructions .Route 04/24/25 Unknown Rx .COMPLEX #90 tabs Allergy/AdvReac Type Severity Reaction Status Date / Time No Known Allergies Allergy Verified 05/25/25 10:03 Family History Mother Anxiety Depression Breast cancer Heart disease Hypertension Father Cancer Melanoma Diabetes Heart disease Brother Cancer Hodgkin lymphoma Grandmother Breast cancer Sister Asthma Surgical History Hx of tubal ligation History of colonoscopy History of shoulder surgery History of excision of pilonidal cyst History of tonsillectomy and adenoidectomy History of loop electrosurgical excision procedure (LEEP) Social History household members: spouse current occupational status: employed 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
--- NOTE | 2025-05-29 07:54 | EKG12_ITS ---
Test Reason : PREOP Blood Pressure : */* mmHG Vent. Rate : 67 BPM Atrial Rate : 67 BPM P-R Int : 156 ms QRS Dur : 90 ms QT Int : 414 ms P-R-T Axes : 46 54 3 degrees QTcB Int : 437 ms Sinus rhythm with occasional Premature ventricular complexes Otherwise normal ECG When compared with ECG of 28-Apr-2019 16:11, Premature ventricular complexes are now Present Confirmed by ANNE-MARIE ANGELO, SYBIL ([id number]), senior technical editor BETHANY SEO ([id number]) on 05/29/2025 1:24:11 PM Referred By: Omar Guardado Confirmed By: SYBIL XIE MD
[2025-05-29] MEDS: Lactated Ringers 1,000 ML 15 ML IV (08:16)
[2025-05-29] MEDS: INDOCYANINE GREEN 3.75 MG in Syringe 1.5 ML 999 MG IV (08:24)
--- NOTE | 2025-05-29 08:38 | PCM.HP.BLA ---
History and Physical Date of Admission: 05/29/25 Intake Vital Signs 04/06/2510:05 05/23/2513:44 Height 5 ft 8 in 5 ft 8 in Weight: 220 lb 229 lb BMI 33.4 34.8 BP 118/80 134/79 H Blood Pressure Location Lt brachial Rt brachial Position Sitting Sitting Respiration 16 17 Pulse 71 66 Pulse Source Monitor Monitor Temp 98.7 F Temp Source Temporal Pulse Oximetry (%) 99 98 Oxygen Delivery Method room air room air Intake Visit Reasons: ABNORMAL HIDA Chief Complaint: abnormal hida Is patient in pain?: No Allergies No Known Allergies Allergy (Verified 05/23/25 13:45) Medications ?Medication ?Instructions ?Recorded ?Confirmed ?Type rosuvastatin 5 mg tablet 5 mg PO DAILY #90 tabs 03/27/25 05/23/25 Rx escitalopram oxalate 5 mg tablet 5 mg PO DAILY #90 TABLETS 04/12/25 05/23/25 Rx lisinopril 20 mg tablet See Rx Instructions .Route 04/24/25 05/23/25 Rx .COMPLEX #90 tabs PFSH Medical History Wears contact lenses Wears glasses History of IBS Non-smoker Shortness of breath on exertion Hypertension Sleep apnea Fatigue Throat tightness Difficulty swallowing Anxiety and depression Heart murmur Hyperlipidemia High blood pressure Frequent headaches Anemia Surgical History Hx of tubal ligation History of colonoscopy History of shoulder surgery History of excision of pilonidal cyst History of tonsillectomy and adenoidectomy History of loop electrosurgical excision procedure (LEEP) Family History (Updated 05/23/25 @ 13:44 by Teresa Mckeon) Mother Anxiety Depression Breast cancer Heart disease HypertensionFather Cancer Melanoma Diabetes Heart diseaseBrother Cancer Hodgkin lymphomaGrandmother Breast cancerSister Asthma Social History household members: spouse current occupational status: employed 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 She says this happens in episodes. She says greasy foods bring it on. She does not have attacks every day she said they are few times a month. ROS General General: Yes fatigue; No weight change, appetite, colon cancer, breast cancer or weakness HEENT HEENT: No difficulty swallowing, eye injury, eye surgery, swollen glands or hoarseness Endo Endocrine: No thyroid disease, diabetes mellitus, thyroid cancer, Hair loss, heat intolerance or cold intolerance Skin Skin: No rash or changing moles Musc Musculoskeletal: No back problems, arthritis, rheumatoid arthritis, gout or joint pain Cardio Cardiovascular: Yes murmur and high blood pressure; No pacemaker, heart disease, atrial fibrillation, heart attack, heart stent, palpitations, shortness of breath with exertion or chest pain Psych Psychiatric: Yes depression and anxiety; No hearing voices Resp Respiratory: No shortness of breath, No sleep apnea, No cough, No COPD, No asthma, No emphysema and No wheezing Gastro Gastrointestinal: No abdominal pain, Yes nausea or vomiting, Yes diarrhea, No constipation, No blood in stool, Yes acid reflux, No hemorrhoids, No ulcers, Yes gallbladder problem and No black,tarry stools Flash Hematologic: No blood thinners, No blood disorders, No bleeding, No anemia and No blood clots Neuro Neurologic: No system reviewed and no additional complaints, except as documented, No as per HPI, No abnormal gait, No abnormal hearing, No abnormal movements, No abnormal speech, No behavioral changes, No burning sensations, No confusion, No convulsions, No disequilibrium, No dizziness, No localized weakness, No frequent falls, No headache(s), No lack of coordination, No loss of vision, No memory loss, No numbness, No other visual disturbances, No radicular pain, No restless legs, No sensory deficit, No syncope, No tingling, No tremor(s), No weakness and No other Exam Const General: cooperative Orientation: alert and oriented x3 HENMT Head: normal to inspection Neck Neck: normal visual inspection and full ROM Chest Chest palpation & inspection: normal inspection of the chest Resp Effort & Inspection: normal respiratory effort Auscultation: clear to auscultation bilaterally Cardio Rate: regular rate Rhythm: regular rhythm GI Inspection: non-distended Palpation: soft and nontender Skin General: no rashes or lesions noted Neuro General: patient alert and patient oriented x3 Extrem General: full ROM Psych Appearance: grossly normal Mental Status: mental status grossly normal Assessment and Plan Assessment and Plan (1) Nonfunctioning gallbladder: Status: Acute Plan: The patient has biliary dyskinesia with an ejection fraction of 15%. I discussed robotic assisted laparoscopic cholecystectomy. I discussed the procedure in detail with the patient. I discussed the risks, benefits, and alternatives of the procedure. I discussed the risks including but not limited to bleeding, infection, injury to surrounding organs such as the liver, bile duct, bowels. I did discuss the possibility of having to convert to an open procedure as well as the possibility that if any injuries occurred this may necessitate further surgery at a tertiary care center. Omar Guardado MD Pager: [facility] [address] [place] [address], [address] [place] [address] Office: I have examined the patient and the H&P has been reviewed. There are no clinical changes since date of exam.
--- NOTE | 2025-05-29 08:54 | PCM.POST.ANE ---
Anesthesia: Postop Eval I Current Vital Signs Temperature: 97 F Pulse Rate: 99 Blood Pressure: 111/79 Respiratory Rate: 16 Pulse Ox: 100 Oxygen Delivery Method: Room Air Assessment Airway patent: Yes Spontaneous unlabored respirations: Yes Mental status: Awake nausea: No Vomiting: No Anesthesia Complication: No Fluid Hydration Crystalloid volume administer (ml): 1,000 Total IV fluid infused: 1,000 Progress Note Anesthesia document: Postop Eval 1 completed: Yes
--- NOTE | 2025-05-29 09:15 | GALL_PTH ---
PATIENT: COSTA ANDERSON LOC: [facility] [place] U#:[id number] AGE/SX: 55/F ROOM: RE05/29/[address]: Dr. Omar Guardado MD : 1970 BED: DIS: 05/29/2025 SPEC #: [id number] RECD: 05/29/25 12:56 STATUS: REGINA SONIA #: [id number] HALEY: 05/29/25 09:[address]: Omar Guardado DEPT: SURGICAL PATHOLOGY RECD BY: Isaac Leija ENTERED: 05/29/25 13:25 SP TYPE: MASOUD BOUDREAUX DR: Dr. Leah Salvador MD Tissues: A - Gallbladder, NOS Procedures: Surgery Specimen Level III HEADER OPERATION: Robotic cholecystectomy PRE-OP DIAGNOSIS: Nonfunctioning gallbladder TISSUE SUBMITTED: A- Gallbladder MICROSCOPIC DIAGNOSIS A. Gallbladder, nonfunctioning gallbladder, cholecystectomy: - Cholesterolosis. - Benign pericystic lymph node x1. MICROSCOPIC DESCRIPTION Slides are reviewed. GROSS DESCRIPTION A. Received in formalin labeled with the patient's name and date of . Designated as gallbladder is a 9.0 x 0.2 x 0.2 cm pink-green, intact gallbladder with attached patent cystic duct (inked black, shaved). A lymph node is present. Opening reveals yellow-green, tenacious bile devoid of choleliths. The mucosa is yellow-green and granular with a maximum wall thickness of <0.1 cm. Cholesterolosis is present. Forge Press Operator sections are submitted in 1 cassette. AK 05/29/2025 CPT:[id number]
[2025-05-29] MEDS: Cefotetan 2 GM in 0.9% Normal Saline (100mL MB+) 100 ML IV (09:47)
--- NOTE | 2025-05-29 10:41 | PCM.OPRPT ---
Operative Report (Standard) Operative Information Date of Procedure: 05/29/25 Pre-Operative Diagnosis: Biliary dyskinesia Post-Operative Diagnosis: Biliary dyskinesia Surgery/Procedure Performed: Robotic assisted laparoscopic cholecystectomy core extruder: Yes Electrotyper Apprentice: Benja Soto Tasks completed by medical office assistant instructor: Opening & closing and Retracting Type of Anesthesia: General/Regional RN Documented Start/Stop Times: Operation Date: 05/29/25 09:15 Case Time Into Pre-Op 05/29/25 07:50 Out of Pre-Op 05/29/25 09:30 Anesthesia Start 05/29/25 09:32 Into Room 05/29/25 09:32 Procedure Start 05/29/25 09:50 Procedure Start Time: 09:50 Procedure Stop Time: 10:50 Select all DRAINS/GRAFTS/IMPLANTS that apply: None Estimated Blood Loss: 5 Specimen collected: Yes Description of specimen(s) removed: Gallbladder Description of surgery: Patient was brought back to the operating room and general anesthesia was induced. The abdomen was prepped and draped in usual sterile fashion. A midline incision was made superior to the umbilicus and the fascia was grasped and elevated. A Veress needle was placed in the abdomen and drop test was performed. Next the abdomen was insufflated to 15 mmHg. The Veress needle was removed and a port was placed. Camera was placed into the abdomen and there were no injuries from entry. Under direct visualization 2 left upper quadrant ports were placed and a right upper quadrant port was placed. The gallbladder was retracted cephalad and the infundibulum was retracted laterally. The peritoneum was stripped and the dissection occurred. The cystic duct and cystic artery were identified. This was done with the assistance of ICG. The cystic duct was clipped triply and divided. The cystic artery was clipped triply and divided. The gallbladder was taken off of the gallbladder fossa using electrocautery hook. The gallbladder was then placed into a bag and removed. The robot was undocked and Pipo-Cullen needle was used to close the midline fascia using a [id number] 0 Vicryl suture. Next the incisions were injected with local anesthetic and closed with interrupted 4-0 Monocryl sutures. Steri-Strips and bandages were applied. Patient was taken to PACU in stable condition. Surgical Findings: None Complications Complications: No Admit VTE Documentation VTE Mechan Device Prophylaxis: SCD's
--- NOTE | 2025-05-29 10:45 | EX.PCM.DISCH ---
Discharge Instructions Procedure Gallbladder Diet Discharge Diet: Light diet - advance as tolerated Activity Discharge Activity: May Not Drive (for 2-3 days or while taking narcotic pain medications.) and - (Do not drive, work heavy equipment or sign legal documents for 24 hours.) May shower in (days): 1 Lifting Restrictions: 20 lbs for 2 weeks Additional Activity Instructions:: Pain medication may cause nausea. You should typically eat light foods as you take your pain medications. Pain medication may also cause constipation. If this is a problem for you, please discuss with your doctor. Alternate ibuprofen and Tylenol for pain control, oxycodone for breakthrough pain Dressing / Incision Call your doctor if your incision/area has: Continuous Slow Oozing, Sudden Increased Bleeding, Increased Pain/ Swelling, Increased Redness and Foul Smelling Discharge Call your doctor if you observe: Fever of 101 or Higher Suture Line Care: Avoid Pulling/Pushing and Avoid Pinching/Bending Remove Dressing in: 2 days Additional Dressing/Incision Instructions:: Leave operative bandaids on for 2 days. When you remove dressing, leave Steri-Strips on until your follow-up appointment, or until the Steri-Strips fall off on their own. Follow Up Care Please Follow Up With: Omar Guardado MD When: Please call to schedule 2 week follow up appointment. [phone] Test Results: Test results from this visit will be discussed in further detail at your follow-up appointment, if applicable. Discharge Plan Admission Attending Provider: Omar Guardado Primary Care Provider: Leah Salvador Instructions Print Language: Turkmen Discharge Orders/Prescriptions Prescriptions: New oxycodone 5 mg Tablet 5 - 10 mg PO Q4H PRN PRN (Reason: Pain Score 4-10) 5 Days Qty: 14 0RF No Action rosuvastatin 5 mg tablet 5 mg PO DAILY Qty: 90 1RF escitalopram oxalate 5 mg tablet 5 mg PO DAILY Qty: 90 0RF lisinopril 20 mg tablet See Rx Instructions .ROUTE .COMPLEX Qty: 90 0RF Dose Instruction: TAKE 1 TABLET BY MOUTH EVERY DAY Rx Instructions: TAKE 1 TABLET BY MOUTH EVERY DAY Referrals / Follow Up: Leah Salvador MD [Primary Care Provider] - Disposition Disposition (needs filled in before D/C Order can be placed): Home, Self Care
--- NOTE | 2025-05-29 10:58 | PCM.POST.ANE ---
Anesthesia: Postop Eval I Current Vital Signs Temperature: 97.1 F Pulse Rate: 68 Blood Pressure: 84/67 Respiratory Rate: 16 Pulse Ox: 99 Oxygen Delivery Method: Room Air Assessment Airway patent: Yes Spontaneous unlabored respirations: Yes Mental status: Awake nausea: No Vomiting: No Anesthesia Complication: No Fluid Hydration Crystalloid volume administer (ml): 600 Total IV fluid infused: 600 Progress Note Anesthesia document: Postop Eval 1 completed: Yes
--- NOTE | 2025-05-29 11:25 | POSTOPAN2_ITS ---
Anesthesia Postop Eval I Sum Postop Eval Completion status Anesthesia document: Postop Eval 1 completed: Yes Anesthesia Postop Eval I Summary Anesthesia Postop Eval I Summary: Anesthesia Postop Eval I: Assessment Summary Airway patent Yes 05/29/25 10:58 MANAGER ACQUISITION.APAT Spontaneous unlabored Yes 05/29/25 10:58 MANAGER ACQUISITION.APAT respirations Mental status Awake 05/29/25 10:58 MANAGER ACQUISITION.APAT nausea No 05/29/25 10:58 MANAGER ACQUISITION.APAT Vomiting No 05/29/25 10:58 MANAGER ACQUISITION.APAT Anesthesia Postop Eval I: Fluid Summary Crystalloid volume administer 600 05/29/25 10:58 MANAGER ACQUISITION.APAT (ml) Colloids volume administered ( ml) Blood Product volume administered (ml) Total IV fluid infused 600 05/29/25 10:58 MANAGER ACQUISITION.APAT Anesthesia Postop Eval I: Summary Notes Anesthesia Complication No 05/29/25 10:58 MANAGER ACQUISITION.APAT Anesthesia Complication Comment: Post-operative progress note Anesthesia: Postop Eval II Evaluation Mental status: Awake Pain Level: 2 nausea: No Vomiting: No
--- NOTE | 2025-05-29 11:25 | PCM.POSTANE2 ---
Anesthesia Postop Eval I Sum Postop Eval Completion status Anesthesia document: Postop Eval 1 completed: Yes Anesthesia Postop Eval I Summary Anesthesia Postop Eval I Summary: Anesthesia Postop Eval I: Assessment Summary Airway patent Yes 05/29/25 10:58 EVENT PLANNING INTERN.APAT Spontaneous unlabored Yes 05/29/25 10:58 EVENT PLANNING INTERN.APAT respirations Mental status Awake 05/29/25 10:58 EVENT PLANNING INTERN.APAT nausea No 05/29/25 10:58 EVENT PLANNING INTERN.APAT Vomiting No 05/29/25 10:58 EVENT PLANNING INTERN.APAT Anesthesia Postop Eval I: Fluid Summary Crystalloid volume administer 600 05/29/25 10:58 EVENT PLANNING INTERN.APAT (ml) Colloids volume administered ( ml) Blood Product volume administered (ml) Total IV fluid infused 600 05/29/25 10:58 EVENT PLANNING INTERN.APAT Anesthesia Postop Eval I: Summary Notes Anesthesia Complication No 05/29/25 10:58 EVENT PLANNING INTERN.APAT Anesthesia Complication Comment: Post-operative progress note Anesthesia: Postop Eval II Evaluation Mental status: Awake Pain Level: 2 nausea: No Vomiting: No
--- OUTSIDE RECORDS SUMMARY | 2025-05-31 23:09 | XMS RPT_ITS | CCD ---
Author Organization [facility] Care Team Providers Care [employer] Name Role Phone Dr. Landry Bro Primary Care Provider [phone] Dr. Landry Bro Referring Provider [phone] Dr. Nick Staples Attending Provider Calli ARCHITECTURAL INSPECTOR, CÉSAR Roldan Attending Provider [phone] Dr. Landry Bro Primary Care Provider [phone] Salvador MD Primary Care Provider [phone] Dr. Leah Salvador MD Attending Provider Dr. Leah Salvador MD Referring Provider Dony Morales Attending Provider [phone] Dony Morales Referring Provider [phone] Geo ANGELO, Dr. Nelson Attending Provider Madeleine, Leah Referring Unavailable Shyam Valencia Attending Unavailable Madeleine, Leah Primary Care Unavailable Syed, Cosmo Referring Unavailable Syed, Cosmo Attending Unavailable [place], Leah Primary Care Unavailable Syed, Cosmo Attending Unavailable Madeleine, Leah Primary Care Unavailable Madeleine, Leah Primary Care Unavailable Cristy, Carlos Referring Unavailable Cristy, [place] Attending Unavailable Kathy Carter Attending Unavailable Madeleine, Leah Primary Care Unavailable Wayt, Dony Referring Unavailable Wayt, Dony Consulting Unavailable [place], Leah Primary Care Unavailable Wayt, Dony Referring Unavailable WaytJoaquinew Attending Unavailable Madeleine, Leah Primary Care Unavailable Wayt Dony Referring Unavailable Wayt, Dony Attending Unavailable Madeleine, Leah Referring Unavailable [place], Leah Attending Unavailable [place], Leah Primary Care Unavailable Madeleine, Leah Primary Care Unavailable WaytJoaquinew Attending Unavailable Madeleine, Leah Referring Unavailable Madeleine, Leah Attending Unavailable [place], Leah Primary Care Unavailable Madeleine, Leah Referring Unavailable Madeleine, Leah Primary Care Unavailable Wayt, Dony Referring Unavailable WaytDony Attending Unavailable Shyam Valencia Referring Unavailable Shyam Valencia Attending Unavailable Madeleine, Leah Primary Care Unavailable [place], Leah Primary Care Unavailable Omar Guardado Referring Unavailable Omar Guardado Attending Unavailable [place], Leah Primary Care Unavailable Wayt, Dony Referring Unavailable WaytJoaquinew Attending Unavailable Madeleine, Leah Referring Unavailable [place], Leah Primary Care Unavailable Madeleine, Leah Attending Unavailable [place], Leah Primary Care Unavailable [place], Leah Referring Unavailable WaytDony Attending Unavailable [place], Leah Primary Care Unavailable Omar Guardado Attending Unavailable [place], Leah Referring Unavailable Madeleine, Leah Referring Unavailable Leah Salvador Attending Unavailable Leah Salvador Primary Care Unavailable Madeleine ANGELO, Dr. Lynn Primary Care Provider Madeleine ANGELO, Dr. Lynn Referring Provider Geo ANGELO, Dr. Nelson Referring Provider [phone] Geo ANGELO, Dr. Nelson Other Provider [phone] Medications Current Medications Medication Drug Class(es) Dates Sig (Normalized) Sig (Original) oxyCODONE hydrochloride 5 mg oral tablet (1 source) Opioid Agonist Start: 05-29-2025 take 5-10 mg by mouth every four hours as needed for pain Oxycodone 5 mg Tablet Active 5 - 10 mg PO EVERY 4 HOURS NEEDED as needed for Pain Score 4-10 14 5 0 May 29, 2025 Nonfunctioning gallbladder Other specified diseases of gallbladder Completed/Discontinued Medications Medication Drug Class(es) Dates Sig (Normalized) Sig (Original) 200 actuat albuterol 0.09 mg/actuat dry powder inhaler (20 sources) beta2-Adrenergic Agonist Start: 01-01-2022 End: 01-06-2022 take 90 ug by inhalation every four hours as needed Albuterol Sulfate (Proair Respiclick) 90 mcg/actuation aerosol powdr breath activated Discontinued 2 NMA INHALATION Q4H as needed for shortness of breath or wheezing 11 28January 01, 2022 1:00am January 06, 2022 10:09am [...] needed for shortness of breath or wheezing 10 05November 05, 2021 1:00am January 01, 2022 1:49pm Start: 11-05-2021 End: 01-01-2022 take 1 puff(s) by inhalation every four hours Albuterol Sulfate (Ventolin Hfa) 90 mcg/actuation HFA aerosol inhaler Discontinued 2 PUFF INHALATION Q4H November 05, 2021 1:00am January 01, 2022 1:49pm aluminum chloride 200 mg/ml topical solution (12 sources) Start: 05-01-2021 End: 10-14-2022 Aluminum Chloride 20 % solut ion Discontinued 1 NMA TOPICAL AT BEDTIME May 01, 2021 12:00am October 14, 2022 4:02pm Start: 05-01-2021 End: 10-14-2022 Aluminum Chloride Discontinu ed 1 APPLIC TOPICAL AT BEDTIME May 01, 2021 12:00am October 14, 2022 4:02pm atorvastatin 10 mg oral tablet (13 sources) HMG-CoA Reductase Inhibitor Start: 08-31-2023 End: 04-20-2024 take 1 tablet by mouth at bedtime Atorvastatin (Lipitor) 10 mg tablet Discontinued 10 mg PO AT BEDTIME 90 November 02, 2023 4:15pm April 20, 2024 7:27am Budesonide-Formoter ol (20 sources) Corticosteroid, beta2-Adrenergic Agonist Start: 09-12-2022 End: 2024 Budesonide-Formoter ol (Symbicort) 160-4.5 mcg/actuation HFA aerosol inhaler Discontinued 2 NMA INHALATION TWICE A DAY 11 28September 12, 2022 2:21pm 2024 9:29am administer with spacer, rinse mouth after each use Start: 09-12-2022 End: 2024 Budesonide-Formoterol (Symbi joni) 160-4.5 mcg/actuation HFA aerosol inhaler Discontinued 2 NMA INHALATION TWICE A DAY September 12, 2022 2:21pm 2024 9:29am administer with spacer, rinse mouth after each use Start: 09-12-2022 take 1 puff(s) by mo uth twice daily Budesonide-Formoterol (Symbicort) 160-4. 5 mcg/actuation HFA aerosol inhaler Active 2 PUFF INHALATION TWICE A DAY September 12, 2022 2:21pm administer with spacer, rinse mouth after each use Start: 09-12-2022 take 1 puff(s) by [facility] twice daily Budesonide-Formoterol (Symbicort) 160-4. 5 mcg/actuation HFA aerosol inhaler Active 2 PUFF INHALATION TWICE A DAY September 12, 2022 1:21pm administer with spacer, rinse mouth after each use Start: 01-09-2022 End: 09-12-2022 Budesonide-Formoterol (Symbi joni) 160-4.5 mcg/actuation HFA aerosol inhaler Discontinued 2 NMA INHALATION TWICE A DAY 11 28January 09, 2022 7:55am September 12, 2022 2:22pm administer with spacer, rinse mouth after each use Start: 01-09-2022 End: 09-12-2022 Budesonide-Formoterol (Symbi joni) 160-4.5 mcg/actuation HFA aerosol inhaler Discontinued 2 NMA INHALATION TWICE A DAY January 09, 2022 7:55am September 12, 2022 2:22pm administer with spacer, rinse mouth after each use Start: 01-09-2022 End: 09-12-2022 take 1 puff(s) by mouth twice daily Budesonide-Formoterol (Symbicort) 160-4. 5 mcg/actuation HFA aerosol inhaler Discontinued 2 PUFF INHALATION TWICE A DAY January 09, 2022 7:55am September 12, 2022 2:22pm administer with spacer, rinse mouth after each use Start: 01-09-2022 End: 09-12-2022 take 1 puff(s) by mouth twice daily Budesonide-Formoterol (Symbicort) 160-4. 5 mcg/actuation HFA aerosol inhaler Discontinued 2 PUFF INHALATION TWICE A DAY January 09, 2022 6:55am September 12, 2022 1:22pm administer with spacer, rinse mouth after each use Start: 01-09-2022 take 1 puff(s) by [facility] twice daily Budesonide-Formoterol (Symbicort) 160-4. 5 mcg/actuation HFA aerosol inhaler Active 2 PUFF INHALATION TWICE A DAY January 09, 2022 7:55am administer with spacer, rinse mouth after each use Start: 12-18-2021 End: 01-09-2022 take 1 puff(s) by mouth twice daily Budesonide-Formoterol (Symbicort) 160-4. 5 mcg/actuation HFA aerosol inhaler Discontinued 2 PUFF INHALATION TWICE A DAY 1 December 18, 2021 2:55pm January 09, 2022 7:56am administer with spacer, rinse mouth after each use Start: 12-18-2021 End: 01-09-2022 Budesonide-Formoterol (Symbi joni) 160-4.5 mcg/actuation HFA aerosol inhaler Discontinued 2 NMA INHALATION TWICE A DAY 1 December 18, 2021 1:00am January 09, 2022 7:56am administer with spacer, rinse mouth after each use Start: 12-18-2021 End: 01-09-2022 Budesonide-Formoterol (Symbi joni) 160-4.5 mcg/actuation HFA aerosol inhaler Discontinued 2 NMA INHALATION TWICE A DAY 1 December 18, 2021 1:00am January 09, 2022 7:56am administer with spacer, rinse mouth after each use Start: 12-18-2021 End: 01-09-2022 take 1 puff(s) by mouth twice daily Budesonide-Formoterol (Symbicort) 160-4. 5 mcg/actuation HFA aerosol inhaler Discontinued 2 PUFF INHALATION TWICE A DAY December 18, 2021 1:00am January 09, 2022 7:56am administer with spacer, rinse mouth after each use Start: 12-18-2021 End: 01-09-2022 take 1 puff(s) by mouth twice daily Budesonide-Formoterol (Symbicort) 160-4. 5 mcg/actuation HFA aerosol inhaler Discontinued 2 PUFF INHALATION TWICE A DAY December 18, 2021 12:00am January 09, 2022 6:56am administer with spacer, rinse mouth after each use 12 hr buPROPion hydrochloride 150 mg extended release oral tablet (13 sources) Aminoketone Start: 08-31-2023 End: 04-20-2024 take 1 tablet by mouth once daily Bupropion Hcl (Wellbutrin Sr) 150 mg tablet sustained-release 12 hr Discontinued 150 mg PO DAILY 90 0 October 06, 2023 9:24am April 20, 2024 7:59am cholecalciferol 1.25 mg oral capsule (20 sources) Vitamin D Start: 04-28-2024 End: 11-28-2024 take 1 capsule by mouth every week Cholecalciferol (Vitamin D3) 1,250 mcg (50,000 unit) capsule Discontinued 1250 ug PO EVERY WEEK 12 1 July 14, 2024 11:56am November 28, 2024 2:05pm Start: 09-01-2022 End: 11-28-2024 take 1 capsule by mouth once daily Cholecalciferol (Vitamin D3) 25 mcg (1,000 unit) capsule Discontinued 25 ug PO DAILY September 01, 2022 12:00am November 28, 2024 2:05pm codeine phosphate 2 mg/ml / guaiFENesin 20 mg/ml oral solution (12 sources) Opioid Agonist Start: 12-17-2023 End: 02-24-2024 take 1 mL by mouth every six hours as needed for cough Codeine-Guaifenesin 10-100 mg/5 mL liquid Discontinued 5 mL PO EVERY 6 HOURS as needed for cough 118 0 December 17, 2023 2:04pm February 24, 2024 12:54pm Start: 12-17-2023 End: 02-24-2024 take 1 mL by mouth every six hours Codeine-Guaifenesin Discontinued 5 ML PO EVERY 6 HOURS 118 December 17, 2023 2:04pm February 24, 2024 12:54pm escitalopram 5 mg oral tablet (20 sources) Serotonin Reuptake Inhibitor Start: 12-23-2023 End: 04-12-2025 take 1 tablet by mouth once daily Escitalopram Oxalate 5 mg tablet Discontinued 5 mg PO DAILY 90 0 August 08, 2024 10:54am January 11, 2025 [...] mg tablet Discontinued 10 mg PO DAILY 90 0 August 03, 2023 10:27am August 31, 2023 7:50am Start: 08-26-2022 End: 08-03-2023 take 1 tablet by mouth once daily Escitalopram Oxalate 5 mg tablet Discontinued 0 .ROUTE .COMPLEX 30 3 June 21, 2023 9:53am August 03, 2023 10:58am TAKE 1 TABLET BY MOUTH EVERY DAY Start: 06-17-2019 End: 12-01-2019 take 1 tablet by mouth once daily Escitalopram Oxalate 5 mg tablet Discontinued 5 mg PO DAILY June 17, 2019 12:00am December 01, 2019 5:14pm famotidine 20 mg oral tablet (20 sources) Histamine-2 Receptor Antagonist Start: 04-06-2025 End: 05-23-2025 take 1 tablet by mouth twice daily Famotidine 20 mg tablet Discontinued 20 mg PO TWICE A DAY 30 2 April 27, 2025 12:35pm May 23, 2025 1:45pm Start: 04-04-2020 End: 05-10-2020 take 1 tablet by mouth twice daily Famotidine 20 mg tablet Discontinued 20 mg PO TWICE A DAY 60 0 April 04, 2020 12:00am May 10, 2020 1:15pm fluticasone propionate 0.05 mg/actuat metered dose nasal spray (20 sources) Corticosteroid Start: 11-13-2021 End: 08-26-2022 Fluticasone Propionate 50 mcg/actuation spray,suspension Discontinued 2 NMA INTRANASAL DAILY 16 December 19, 2021 9:48am August 26, 2022 3:01pm Start: 11-13-2021 End: 08-26-2022 Fluticasone Propionate Disco ntinued 2 SPRAY INTRANASAL DAILY December 19, 2021 9:48am August 26, 2022 3:01pm glycopyrrolate 1 mg oral tablet (12 sources) Start: 05-01-2021 End: 10-14-2022 take 1 tablet by mouth twice daily Glycopyrrolate 1 mg tablet Discontinued 1 mg PO TWICE A DAY May 01, 2021 12:00am October 14, 2022 4:03pm ibuprofen 200 mg oral capsule (20 sources) Nonsteroidal Anti-inflammatory Drug Start: 08-26-2022 End: 10-14-2022 take 1 tablet by mouth once daily Ibuprofen 800 mg tablet Discontinued 800 mg PO DAILY 7 August 26, 2022 12:00am October 14, 2022 4:46pm On Hold: Duplicate Order Start: 08-26-2022 End: 10-14-2022 take 4 capsules by mouth every six hours as needed Ibuprofen 200 mg capsule Discontinued 800 mg PO EVERY 6 HOURS as needed August 26, 2022 12:00am October 14, 2022 [...] 4:19pm Leg Brace (Kane Knee Brace) misc (20 sources) Start: 09-01-2022 End: 2024 Leg Brace (Kane Knee Brace) m isc Discontinued 0 .Route 1 0 September 01, 2022 8:14am 2024 9:30am Left knee pain Pain in left knee As directed Start: 09-01-2022 End: 2024 Leg Brace (Kane Knee Brace) m isc Discontinued 0 .Route September 01, 2022 8:14am 2024 9:30am As directed Start: 09-01-2022 Leg Brace (Kane Knee Brace) misc Active 0 .Route 1 September 01, 2022 8:14am As directed Start: 09-01-2022 Leg Brace (Kane Knee Brace) misc Active 0 .Route September 01, 2022 7:14am As directed Start: 08-26-2022 End: 09-01-2022 Leg Brace (Kane Knee Brace) m isc Discontinued 0 .Route 1 August 26, 2022 12:00am September 01, 2022 8:14am Left knee pain Pain in left knee As directed Start: 08-26-2022 End: 09-01-2022 Leg Brace (Kane Knee Brace) m isc Discontinued 0 .Route August 26, 2022 12:00am September 01, 2022 8:14am As directed Start: 08-26-2022 End: 09-01-2022 Leg Brace (Kane Knee Brace) m isc Discontinued 0 .Route August 25, 2022 11:00pm September 01, 2022 7:14am As directed 200 actuat levalbuterol 0.045 mg/actuat metered dose inhaler (12 sources) beta2-Adrenergic Agonist Start: 01-06-2022 End: 11-28-2024 Levalbuterol Tartrate 45 mcg/actuation HFA aerosol inhaler Discontinued 2 NMA INHALATION EVERY 6 HOURS 07 05January 06, 2022 1:00am November 28, 2024 2:06pm Start: 01-06-2022 Levalbuterol T artrate Active 2 INH INHALATION EVERY 6 HOURS January 06, 2022 1:00am lisinopril 20 mg oral tablet (20 sources) Angiotensin Converting Enzyme Inhibitor Start: 10-14-2022 End: 04-24-2025 take 1 tablet by mouth once daily Lisinopril 20 mg tablet Discontinued 0 .ROUTE .COMPLEX 90 October 26, 2024 8:35am April 24, 2025 11:16pm TAKE 1 TABLET BY MOUTH EVERY DAY meloxicam 15 mg oral tablet (10 sources) Nonsteroidal Anti-inflammatory Drug Start: 09-24-2022 End: 12-29-2022 take 1 tablet by mouth once daily Meloxicam 15 mg tablet Discontinued 15 mg PO DAILY 30 September 24, 2022 12:00am December 29, 2022 2:35pm Primary osteoarthritis of both knees Bilateral primary osteoarthritis of knee Pain Do not take in conjunction with other NSAIDs. Tylenol is okay. Multivitamin With Minerals (Hair,Skin And Nails) tablet (5 sources) Start: 11-28-2024 End: 04-06-2025 Multivitamin With Minerals (Hair,Skin And Nails) tablet Discontinued 1 {tbl} PO daily November 28, 2024 1:00am April 06, 2025 10:04am omeprazole 40 mg delayed release oral capsule (12 sources) Proton Pump Inhibitor Start: 05-10-2020 End: 06-13-2020 take 1 capsule by mouth once daily Omeprazole 40 mg capsule,delayed release(DR/EC) Discontinued 40 mg PO DAILY 30 May 10, 2020 12:00am June 13, 2020 4:19pm rosuvastatin calcium 5 mg oral tablet (15 sources) HMG-CoA Reductase Inhibitor Start: 06-29-2024 End: 03-27-2025 take 1 tablet by mouth once daily Rosuvastatin 5 mg tablet Discontinued 5 mg PO DAILY 90 October 02, 2024 6:32pm March 27, 2025 7:40am Semaglutide (19 sources) Start: 06-22-2024 End: 05-23-2025 Semaglutide (Ozempic) 0.25 mg or 0.5 mg (2 mg/3 mL) pen injector Discontinued 0.5 mg SC EVERY WEEK 3 June 22, 2024 4:10pm May 23, 2025 1:45pm Type 2 diabetes mellitus Type 2 diabetes mellitus without complications for 4 weeks Start: 06-22-2024 Semaglutide (O zempic) 0.25 mg or 0.5 mg (2 mg/3 mL) pen injector Active 0.5 mg SC EVERY WEEK 3 June 22, 2024 4:10pm for 4 weeks Start: 2024 End: 06-22-2024 Semaglutide (Ozempic) 0.25 m g or 0.5 mg (2 mg/3 mL) pen injector Discontinued 0.25 mg SC EVERY WEEK 3 2024 10:02am June 22, 2024 4:11pm Type 2 diabetes mellitus Type 2 diabetes mellitus without complications for 4 weeks Start: 2024 End: 06-22-2024 [...] 2024 7:28am for 4 weeks Start: 08-04-2023 End: 04-20-2024 [...] August 04, 2023 12:00am for 4 weeks SEMAGLUTIDE (5 sources) Start: 2024 End: 11-28-2024 SEMAGLUTIDE Discontinued SC 2024 12:00am November 28, 2024 2:06pm Semaglutide (Weight Loss) (9 sources) Start: 08-03-2023 End: 08-04-2023 Semaglutide (Weight Loss) (W egovy) 0.25 mg/0.5 mL pen injector Discontinued 0.25 mg SC EVERY WEEK 2 August 03, 2023 12:00am August 04, 2023 11:09am administer weeks 1 through 4 of therapy Start: 08-03-2023 End: 08-04-2023 Semaglutide (Weight Loss) (W egovy) 0.25 mg/0.5 mL pen injector Discontinued 0.25 mg SC EVERY WEEK 2 August 03, 2023 12:00am August 04, 2023 11:09am administer weeks 1 through 4 of therapy Start: 08-03-2023 End: 08-04-2023 Semaglutide (Weight Loss) (W egovy) 0.25 mg/0.5 mL pen injector Discontinued 0.25 MG SC EVERY WEEK 2 August 03, 2023 12:00am August 04, 2023 11:09am administer weeks 1 through 4 of therapy tiZANidine 2 mg oral tablet (12 sources) Central alpha-2 Adrenergic Agonist Start: 04-24-2021 End: 08-26-2022 take 1 tablet by mouth twice daily as needed Tizanidine 2 mg tablet Discontinued 2 mg PO TWICE A DAY as needed for muscle spasticity 22 12April 24, 2021 12:00am August 26, 2022 3:01pm ubrogepant 50 mg oral tablet (10 sources) Start: 09-17-2022 End: 2024 take 1 tablet by mouth once Ubrogepant (Ubrelvy) 50 mg tablet Discontinued 50 mg PO ONCE 10 September 17, 2022 12:00am 2024 9:30am as [...] 2022 3:16pm October 06, 2022 5:03pm Problems Problem Classification Problem Date Documented Da te Episodic/Chronic Abdominal pain (20 sources) Right upper quadrant pain; Translations: [Right upper quadrant pain] Onset: 09-20-2024 04-06-2025 Episodic Administrative/social admission (1 source) Persons encountering health services in other specified circumstances; Translations: [Other reasons for seeking consultation] Episodic Anxiety disorders (13 sources) Mixed anxiety and depressive disorder; Translations: [Anxiety disorder, unspecified] 05-07-2021 Chronic Asthma (20 sources) Asthma; Translations: [Unspecified asthma, uncomplicated] Chronic Biliary tract disease (6 sources) Nonfunctioning gallbladder; Translations: [Other specified diseases of gallbladder] Onset: 05-23-2025 05-11-2025 Episodic Cardiac dysrhythmias (8 sources) Palpitations; Translations: [Palpitations] Onset: 11-28-2024 02-24-2024 Episodic Deficiency and other anemia (12 sources) Anemia; Translations: [Anemia, unspecified] 08-26-2022 Episodic Comment on above: When teenager Diabetes mellitus without complication (10 sources) Diabetes mellitus; Translations: [Type 2 diabetes mellitus without complications] Onset: 11-30-2024 11-28-2024 Chronic Disorders of lipid metabolism (16 sources) Hyperlipidemia; Translations: [Hyperlipidemia, unspecified] Onset: 06-29-2024 Chronic Essential hypertension (20 sources) Hypertensive disorder; Translations: [Essential (primary) hypertension] Chronic Genitourinary symptoms and ill-defined conditions (3 sources) Frequency of micturition; Translations: [Urinary frequency] 08-03-2023 Episodic Headache; including migraine (1 source) Migraine, unspecified, not intractable, without status migrainosus; Translations: [Migraine, unspecified, without mention of intractable migraine without mention of status migrainosus] Chronic Headache; including migraine (13 sources) Frequent headache; Translations: [Frequent headaches] Episodic Comment on above: When teenager Heart valve disorders (13 sources) Heart murmur; Translations: [Cardiac murmur, unspecified] Episodic Joint disorders and dislocations; trauma-related (1 source) Patellofemoral disorders, right knee; Translations: [Pain in joint, lower leg] Chronic Malaise and fatigue (14 sources) Fatigue; Translations: [Other fatigue] Onset: 07-24-2024 08-26-2022 Episodic Mood disorders (10 sources) Major depressive disorder, single episode, moderate; Translations: [Major depressive affective disorder, single episode, moderate] Chronic Nonspecific chest pain (17 sources) Tight chest; Translations: [Other chest pain] Onset: 09-01-2024 06-29-2024 Episodic Nutritional deficiencies (11 sources) Vitamin D deficiency, unspecified; Translations: [Unspecified vitamin D deficiency] Onset: 06-29-2024 Chronic Osteoarthritis (1 source) Bilateral primary osteoarthritis of knee; Translations: [Osteoarthrosis, localized, primary, lower leg] Chronic Other circulatory disease (12 sources) Tightness in throat; Translations: [Other specified symptoms and signs involving the circulatory and respiratory systems] 08-26-2022 Episodic Other gastrointestinal disorders (12 sources) Irritable bowel syndrome; Translations: [Irritable bowel syndrome without diarrhea] 08-26-2022 Chronic Other gastrointestinal disorders (12 sources) Dysphagia; Translations: [Dysphagia, unspecified] 08-26-2022 Episodic Other lower respiratory disease (12 sources) Dyspnea; Translations: [Shortness of breath] 08-26-2022 Episodic Other non-traumatic joint disorders (2 sources) Pain in left knee; Translations: [Pain in joint, lower leg] Episodic Other nutritional; endocrine; and metabolic disorders (17 sources) Obesity; Translations: [Obesity, unspecified] 01-09-2022 Chronic Other nutritional; endocrine; and metabolic disorders (7 sources) Obesity, unspecified; Translations: [Obesity, unspecified] Onset: 04-06-2025 Chronic Other nutritional; endocrine; and metabolic disorders (9 sources) Body mass index 30+ - obesity; Translations: [Body mass index (BMI) 33.0-33.9, adult] 09-06-2024 Chronic Other nutritional; endocrine; and metabolic disorders (1 source) Body mass index (BMI) 33.0-33.9, adult; Translations: [Body mass index [BMI] 33.0-33.9, adult] Onset: 04-06-2025 Chronic Other screening for suspected conditions (not mental disorders or infectious disease) (6 sources) Thallium stress test abnormal; Translations: [Abnormal result of other cardiovascular function study] Onset: 11-28-2024 11-28-2024 Episodic Other upper respiratory infections (12 sources) Posterior rhinorrhea; Translations: [Postnasal drip] 08-26-2022 Episodic Residual codes; unclassified (12 sources) Sleep apnea; Translations: [Sleep apnea, unspecified] 05-01-2021 Chronic Residual codes; unclassified (12 sources) History of colonoscopy; Translations: [Other specified postprocedural states] 08-26-2022 Episodic Comment on above: 09/14/2020 Spondylosis; intervertebral disc disorders; other back problems (4 sources) Disorder of right sciatic nerve; Translations: [Sciatica, right side] 01-24-2025 Episodic Thyroid disorders (1 source) Nontoxic single thyroid nodule; Translations: [Nontoxic single thyroid nodule] Onset: 07-06-2024 Chronic Results Test Name Value Interpretation Reference Range Facility Electrocardiogram reportOrde red By: Carlos Muniz on 05-29-2025 EKG study [facility] [address] [place] [address] 12 Lead EKG 05/29/25 0758 MR#: [id number] Acct: [id number] Name: CARLA ANDERSON Rep #:[id number] : 1970 55 From: Carlos Muniz MD Attending Dr: Dr. Omar Guardado MD Status: REG SDC Ordering Dr: Donnie Zendejas MD Date: 06/16 Location: Sex: F C Admitted: Test Reason : PREOP Blood Pressure : */* mmHG Vent. Rate : 67 BPM Atrial Rate : 67 BPM P-R Int : 156 ms QRS Dur : 90 ms QT Int : 414 ms P-R-T Axes : 46 54 3 degrees QTcB Int : 437 ms Sinus rhythm with occasional Premature ventricular complexes Otherwise normal ECG When compared with ECG of 28-Apr-2019 16:11, Premature ventricular complexes are now Present Confirmed by CRISTY ANGELO, CRALOS ([id number]), newspaper or periodical editor BETHANY [employer] ([id number]) on 05/29/2025 1:24:11 PM Referred By: Omar Guardado Confirmed By: CARLOS MUNIZ MD 05/29/25 1324 Date _ Carlos Muniz MD CC: Dr. Leah Salvador MD; Dr. Omar Guardado MD; Dr. Donnie Zendejas MD ~ [facility] Other Phone: MR/PATGrupo 2025 MR/PAT.[facility] Medical Records Department [address] [place] [address] PAT - Anesthesia 05/25/25 1426 MR#: [id number] Acct: [id number] Name: CARLA ANDERSON Rep #: [id number] : 1970 55 From: Beau John MD PCP: Dr. Leah Salvador MD Status:PRE [facility] [place] Y Race: C Location: [facility] [place] Pre-Assessment Diagnosis/Proposed Procedure Planned Operative Procedure(s): Robotic Cholecystectomy Anesthesia History Anesthesia History - ventilating expert: Anesthesia History - ventilating expert Hx Hospitalization No 05/25/25 10:04 Any Problems With Anesthesia No 05/25/25 10:04 Cholinesterase deficiency No 05/25/25 10:04 You/Your Family Experience No 05/25/25 10:04 fever (hyperthermia) with Relationship Recent Exposure to Contagious No 02/24/24 11:16 Disease Does patient have nerve No 05/25/25 10:04 stimulator Patient instructed to have device shut off --Does patient have Pacemaker or ICD? When Was Last Pacemaker Check QUESTION #4 FULL TEXT: You/Your Family Experience fever (hyperthermia) with Anesthesia Last Oral Intake Last Oral intake: Last Oral Intake NPO since Meds taken in AM with sips of water? Meds patient instructed to take am of surgery PONV PONV - ventilating expert: PONV - ventilating expert Female Yes 05/25/25 10:04 HX of Motion Sickness Yes 05/25/25 10:04 HX of N/V After Surgery No 05/25/25 10:04 Non-Smoker Yes 05/25/25 10:04 Duration of Surgery greater Yes 05/25/25 10:04 than 60 minutes Number of Risk Factors 4 05/25/25 10:04 PONV Score Severe Risk 05/25/25 10:04 Height Weight Height Weight: Anesthesia: Height Weight Height 5 ft 8 in 05/23/25 13:44 Respiratory Assessment Respiratory Assessment - ventilating expert: Respiratory Tract Infection Hx - ventilating expert Hx Respiratory Tract Infection No 05/25/25 10:04 STOP Sleep Apnea STOP Sleep Apnea - ventilating expert: STOP Sleep Apnea - ventilating expert Hx Hypertension Yes 05/25/25 10:04 Hx Sleep Apnea No 05/25/25 10:04 CPAP No 02/24/24 11:16 BIPAP Do you snore loudly (louder No 05/25/25 10:04 than talking or can be heard Do you often feel tired/ No 05/25/25 10:04 fatigued/ sleepy during daytime? Has anyone observed you stop No 05/25/25 10:04 breathing during sleep? STOP Results Negative 05/25/25 10:04 QUESTION #5 FULL TEXT : Do you snore loudly (louder than talking or can be heard through closed doors)? 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 Specify any problems Hx of Preganancy in last 3 No 05/25/25 10:04 Months Nurse Filling Out Transfusion [facility] 05/25/25 10:04 Questions: Date: 05/25/25 05/25/25 10:04 Time: 10:10 05/25/25 10:04 Patient unable to answer at this time (ie. confused, unrespo /Reproduction History /Reproductive History - ventilating expert: /Reproductive Hx- ventilating expert Hx Now No 05/25/25 10:04 Gestational Age (in weeks): EDC: Hx Hx Para Hx Section SAB No 05/25/25 10:04 [facility] Medical History (Updated 05/25/25 @ 10:09 by Rosario Becerril) Depression Anxiety High cholesterol History of stress test History of echocardiogram Cardiology follow-up encounter Wears contact lenses Wears glasses History of IBS Non-smoker Shortness of breath on exertion Hypertension Sleep apnea Fatigue Throat tightness Difficulty swallowing Anxiety and depression Heart murmur Hyperlipidemia High blood pressure Frequent headaches Anemia Home Medications ???Medication ???Instructions ???Recorded ???Last Taken ???Type rosuvastatin 5 mg tablet 5 mg PO DAILY #90 tabs 03/27/25 Un known Rx escitalopram oxalate 5 mg tablet 5 mg PO DAILY #90 TABLETS 04/12/25 Unknown Rx lisinopril 20 mg tablet See Rx Instructions .Route 5 Unknown Rx .COMPLEX #90 tabs Allergy/AdvReac Type Severity Reaction Status Date / Time No Known Allergies Allergy Verified 05/25/25 10:03 Family (more content not included)... Normal [facility] Surgery Visit Reporton 05-23 Surgery Visit Report [facility] [address] [place] [address] OFFICE VISIT Date of Service: 05/23/25 MR#: [id number] Acct: [id number] Name: CARLA ANDERSON Rep #: [id number] : 1970 Provider: Dr. Omar koroma MD Age/Sex: 54/F Location: [facility] Status: Signed Intake Vital Signs 04/06/25 10:05 05/23/25 13:44 Height 5 ft 8 in 5 ft 8 in Weight: 220 lb 229 lb BMI 33.4 34.8 BP 118/80 134/79 H Blood Pressure Location Lt brachial Rt brachial Position Sitting Sitting Respiration 16 17 Pulse 71 66 Pulse Source Monitor Monitor Temp 98.7 F Temp Source Temporal Pulse Oximetry (%) 99 98 Oxygen Delivery Method room air room air Intake Visit Reasons: ABNORMAL HIDA Chief Complaint: abnormal hida Is patient in pain?: No Allergies No Known Allergies Allergy (Verified 05/23/25 13:45) Medications ???Medication ???Instructions ???Recorded ???Confirmed ???Type rosuvastatin 5 mg tablet 5 mg PO DAILY #90 tabs 03/27/25 Rx escitalopram oxalate 5 mg tablet 5 mg PO DAILY #90 TABLETS 04/12/25 05/23/25 Rx lisinopril 20 mg tablet See Rx Instructions .Route 5 05/23/25 Rx .COMPLEX #90 tabs PFSH Medical History Wears contact lenses Wears [...] loop electrosurgical excision procedure (LEEP) Family History (Updated 05/23/25 @ 13:44 by Teresa Mckeon) Mother Anxiety Depression Breast cancer Heart disease Hypertension Father Cancer Melanoma Diabetes Heart disease Brother Cancer Hodgkin lymphoma Grandmother Breast cancer Sister Asthma Social History household members: spouse current occupational [...] feel safe at home: Yes HPI HPI HPI: Patient is a 54-year-old female here with right upper quadrant pain that radiates to the back and the right shoulder. She says this happens in episodes. She says greasy foods bring it on. She does not have attacks every day she said they are few times a month. ROS General General: Yes fatigue; No weight change, appetite, colon cancer, breast cancer or weakness HEENT HEENT: No difficulty swallowing, eye injury, eye surgery, swollen glands or hoarseness Endo Endocrine: No thyroid disease, diabetes mellitus, thyroid cancer, Hair loss, heat intolerance or cold intolerance Skin Skin: No rash or changing moles Musc Musculoskeletal: No back problems, arthritis, rheumatoid arthritis, gout or joint pain Cardio Cardiovascular: Yes murmur and high blood pressure; No pacemaker, heart disease, atrial fibrillation, heart attack, heart stent, palpitations, shortness of breath with exertion or chest pain Psych Psychiatric: Yes depression and anxiety; No hearing voices Resp Respiratory: No shortness of breath, No sleep apnea, No cough, No COPD, No asthma, No emphysema and No wheezing Gastro Gastrointestinal: No abdominal pain, Yes nausea or vomiting, Yes diarrhea, No constipation, No blood in stool, Yes acid reflux, No hemorrhoids, No ulcers, Yes gallbladder problem and No black,tarry stools Flash Hematologic: No blood thinners, No blood disorders, No bleeding, No anemia and No blood clots Neuro Neurologic: No system reviewed and no additional complaints, except as documented, No as per HPI, No abnormal gait, No abnormal hearing, No abnormal movements, No abnormal speech, No behavioral changes, No burning sensations, No confusion, No convulsions, No disequilibrium, No dizziness, No localized weakness, No frequent falls, No headache(s), No lack of coordination, No loss of vision, No memory loss, No numbness, No other visual disturbances, No radicular pain, No restless legs, No sensory deficit, No syncope, No tingling, No tremor(s), No weakness and No other Exam Const General: cooperative Orientation: alert and oriented x3 HENMT (more content not included)... Normal [facility] Hepatobilliary Img w/Pharm I nton 05-11-2025 Hepatobilliary Img w/Pharm Int [facility] [address] [place] [address] Hepatobilliary Img w/Pharm Int MR#: [id number] Acct: [id number] Name: CARLA ANDERSON Rep #: [id number] : 1970 F 54 From: Wilberto madrigal MD PCP: Dr. Leah Salvador MD Status: REG CLI Study: Hepatobilliary Img w/Pharm Int Date of Exam: 0 05/11/25 Exam# [id number] Ordering Dr: Dony Blank PA PROCEDURE: HEPATOBILLIARY IMG W/PHARM INT 05/11/2025 REASON FOR EXAM: RUQ PAIN TECHNIQUE: Intravenous Choletec with planar imaging of the abdomen. 2 mcg Kinevac intravenously approximately 60 minutes after the radiopharmaceutical with additional anterior imaging and a region of interest drawn around the gallbladder to calculate a time-activity curve. RADIOPHARMACEUTICAL: Mebrofenin DOSE 5.6mCi COMPARISON: Prior ultrasound dated August 30, 2024. FINDINGS: There is good uptake of the radiopharmaceutical by the liver. Normal gallbladder visualization with the gallbladder identified by 30 minutes. Gallbladder Ejection Fraction: 15 % (Normal is >35%) NM/Hepatobilliary Img w/Pharm Int IMPRESSION: Abnormal gallbladder ejection fraction. Reading Location: [place] [address] CC: Dr. Leah Salvador MD; NELSON Giraldo Addiction Psychiatrist: Signed Normal [facility] Absolute lymphocyte countOrd ered By: Dony Blank on 04-06-2025 Lymphocytes Auto (Unsp spec) [#/Vol] 2.81 10*3/uL 0.83-4.51 [facility] Absolute neutrophil countOrd ered By: Dony Blank on 04-06-2025 Neutrophils (Bld) [#/Vol] 3.7 10*3/uL 2.0-7.7 [facility] Amylaseon 04-06-2025 JONE 68 U/L Normal 28-100 [facility] Comment on above: Performed By: #### L 100.0100, L500.4050, L501.2400, L501.2450 ####[facility] [address] [place], [address] Anion gap in Serum or Plasma Ordered By: Dony Blank on 04-06-2025 Anion gap [Moles/Vol] 11 mmol/L 04-06 [facility] Automated lymphocyte count a s percentage of total leukocytesOrdered By: Dony Blank on 04-06-2025 Lymphocytes/100 WBC Auto (Unsp spec) 39.2 % - [facility] BUN/creatinine ratioOrdered By: Dony Blank on 04-06-2025 Urea nitrogen/Creatinine [Mass ratio] 14.3 mg/mg - [facility] Basophil percentageOrdered B y: Dony Blank on 04-06-2025 Basophils/100 WBC (Bld) 0.7 % 0-1 [facility] Bilirubin, totalOrdered By: Dony Blank on 04-06-2025 Bilirubin [Mass/Vol] 0.34 mg/dL 0.00-1.30 [facility] CBC W/Diff, Automatedon 03-23 Absolute Lymph 2.81 X10 3/uL Normal 0.83-4.51 [facility] Comment on above: Performed By: #### L 100.0100, L500.4050, L501.2400, L501.2450 ####[facility] [address] [place], [address] Absolute Neut 3.7 X10 3/uL Normal 2.0-7.7 [facility] Comment on above: Performed By: #### L 100.0100, L500.4050, L501.2400, L501.2450 ####[facility] [address] [place], [address] Basophils/100 WBC (Bld) 0.7 % Normal 0-1 [facility] Comment on above: Performed By: #### L 100.0100, L500.4050, L501.2400, L501.2450 ####[facility] [address] [place], [address] Eosinophils/100 WBC (Bld) 1.5 % Normal 0-5 [facility] Comment on above: Performed By: #### L 100.0100, L500.4050, L501.2400, L501.2450 ####[facility] [address] [place], [address] Erythrocyte distribution width (RBC) [Ratio] 12.9 % Normal 11.6-14.6 [facility] Comment on above: Performed By: #### L 100.0100, L500.4050, L501.2400, L501.2450 ####[facility] [address] [place], [address] Hematocrit (Bld) [Volume fraction] 42.7 % Normal 37-47 [facility] Comment on above: Performed By: #### L 100.0100, L500.4050, L501.2400, L501.2450 ####[facility] [address] [place], [address] Hemoglobin (Bld) [Mass/Vol] 14.2 g/dL Normal 12.0-15.0 [facility] Comment on above: Performed By: #### L 100.0100, L500.4050, L501.2400, L501.2450 ####[facility] [address] [place], [address] IG% 0.300 Normal 0.0-0.9 [facility] Comment on above: Result Comment: IG% - Immature Granulocytes (promyelocytes, myelocytes and metamyelocytes) > 1% indicates that a LEFT SHIFT is Present. Performed By: #### L 100.0100, L500.4050, L501.2400, L501.2450 ####[facility] [address] [place], [address] Lymphocytes/100 WBC (Bld) 39.2 % Normal 19-41 [facility] Comment on above: Performed By: #### L 100.0100, L500.4050, L501.2400, L501.2450 ####[facility] [address] [place], [address] MCH (RBC) [Entitic mass] 28.6 pg Normal 27.0-32.0 [facility] Comment on above: Performed By: #### L 100.0100, L500.4050, L501.2400, L501.2450 ####[facility] [address] [place], [address] MCHC (RBC) [Mass/Vol] 33.3 g/dL Normal 32-36 [facility] Comment on above: Performed By: #### L 100.0100, L500.4050, L501.2400, L501.2450 ####[facility] [address] [place], [address] MCV (RBC) [Entitic vol] 85.9 fL Normal 81-99 [facility] Comment on above: Performed By: #### L 100.0100, L500.4050, L501.2400, L501.2450 ####[facility] [address] [place], [address] Monocytes/100 WBC (Bld) 6.8 % Normal 0-10 [facility] Comment on above: Performed By: #### L 100.0100, L500.4050, L501.2400, L501.2450 ####[facility] [address] [place], [address] Neutrophils/100 WBC (Bld) 51.5 % Normal 47-70 [facility] Comment on above: Performed By: #### L 100.0100, L500.4050, L501.2400, L501.2450 ####[facility] [address] [place], [address] Nucleated RBC (Bld) [#/Vol] 0 10*3/uL Normal 0-5 [facility] Comment on above: Performed By: #### L 100.0100, L500.4050, L501.2400, L501.2450 ####[facility] [address] [place], [address] Platelet mean volume (Bld) [Entitic vol] 12.6 fL High 6.2-12.0 [facility] Comment on above: Performed By: #### L 100.0100, L500.4050, L501.2400, L501.2450 ####[facility] [address] [place], [address] Platelets (Bld) [#/Vol] 266 10*3/uL Normal 150-450 [facility] Comment on above: Performed By: #### L 100.0100, L500.4050, L501.2400, L501.2450 ####[facility] [address] [place], [address] RBC (Bld) [#/Vol] 4.97 10*6/uL Normal 4.2-5.4 [facility] Comment on above: Performed By: #### L 100.0100, L500.4050, L501.2400, L501.2450 ####[facility] [address] [place], [address] RDW SD 40.2 fl Normal 35.1-43.9 [facility] Comment on above: Performed By: #### L 100.0100, L500.4050, L501.2400, L501.2450 ####[facility] [address] [place], [address] WBC (Bld) [#/Vol] 7.2 10*3/uL Normal 4.4-11.0 [facility] Comment on above: Performed By: #### L 100.0100, L500.4050, L501.2400, L501.2450 ####[facility] [address] [place], [address] Carbon dioxide, total [Moles /volume] in Central venous bloodOrdered By: Dony Blank on 04-06-2025 CO2 [Moles/Vol] 25.4 mmol/L 21.0-32.0 [facility] Chloride assayOrdered By: Yang ttdesiree Blank on 04-06-2025 Chloride [Moles/Vol] 101 mmol/L 98-108 [facility] Comprehensive Metabolic Prof ilon 04-06-2025 Albumin [Mass/Vol] 4.3 g/dL Normal 3.5-5.0 [facility] Comment on above: Performed By: #### L 100.0100, L500.4050, L501.2400, L501.2450 ####[facility] [address] [place], [address] Albumin/Globulin [Mass ratio] 1.2 {ratio} Normal 0.9-2.4 [facility] Comment on above: Performed By: #### L 100.0100, L500.4050, L501.2400, L501.2450 ####[facility] [address] [place], [address] ALK PHOS 85 U/L Normal 35-104 [facility] Comment on above: Performed By: #### L 100.0100, L500.4050, L501.2400, L501.2450 ####[facility] [address] [place], [address] ALT [Catalytic activity/Vol] 12 U/L Normal <=34 [facility] Comment on above: Performed By: #### L 100.0100, L500.4050, L501.2400, L501.2450 ####[facility] [address] [place], [address] AST [Catalytic activity/Vol] 17 U/L Normal <=31 [facility] Comment on above: Performed By: #### L 100.0100, L500.4050, L501.2400, L501.2450 ####[facility] [address] [place], [address] Bilirubin [Mass/Vol] 0.34 mg/dL Normal 0.00-1.30 [facility] Comment on above: Performed By: #### L 100.0100, L500.4050, L501.2400, L501.2450 ####[facility] [address] [place], [address] BUN/CRE 14.3 RATIO Normal 10-20 [facility] Comment on above: Performed By: #### L 100.0100, L500.4050, L501.2400, L501.2450 ####[facility] [address] [place], [address] Calcium [Mass/Vol] 9.8 mg/dL Normal 7.6-11.0 [facility] Comment on above: Performed By: #### L 100.0100, L500.4050, L501.2400, L501.2450 ####[facility] [address] [place], [address] Chloride [Moles/Vol] 101 mmol/L Normal 98-108 [facility] Comment on above: Performed By: #### L 100.0100, L500.4050, L501.2400, L501.2450 ####[facility] [address] [place], [address] CO2 [Moles/Vol] 25.4 mmol/L Normal 21.0-32.0 [facility] Comment on above: Performed By: #### L 100.0100, L500.4050, L501.2400, L501.2450 ####[facility] [address] [place], [address] Creatinine [Mass/Vol] 0.58 mg/dL Low 0.70-1.20 [facility] Comment on above: Performed By: #### L 100.0100, L500.4050, L501.2400, L501.2450 ####[facility] [address] [place], [address] GAP 11 Normal 5-15 [facility] Comment on above: Performed By: #### L 100.0100, L500.4050, L501.2400, L501.2450 ####[facility] [address] [place], [address] GFR/1.73 sq M.predicted among non-blacks MDRD (S/P/Bld) [Vol rate/Area] 107 mL/min/{1.73_m2} Normal >60 [facility] Comment on above: Result Comment: mL/m in/1.73m2 CKD-EPI Creatinine Equation (2020) Performed By: #### L 100.0100, L500.4050, L501.2400, L501.2450 ####[facility] [address] [place], [address] Globulin (S) [Mass/Vol] 3.7 g/dL Normal 2.2-4.2 [facility] Comment on above: Performed By: #### L 100.0100, L500.4050, L501.2400, L501.2450 ####[facility] [address] [place], [address] Glucose [Mass/Vol] 88 mg/dL Normal 70-99 [facility] Comment on above: Performed By: #### L 100.0100, L500.4050, L501.2400, L501.2450 ####[facility] [address] [place], [address] Potassium [Moles/Vol] 4.7 mmol/L Normal 3.3-5.1 [facility] Comment on above: Performed By: #### L 100.0100, L500.4050, L501.2400, L501.2450 ####[facility] [address] [place], [address] Sodium [Moles/Vol] 137 mmol/L Normal 133-145 [facility] Comment on above: Performed By: #### L 100.0100, L500.4050, L501.2400, L501.2450 ####[facility] [address] [place], [address] T PROT 8.0 g/dL Normal 5.9-8.4 [facility] Comment on above: Performed By: #### L 100.0100, L500.4050, L501.2400, L501.2450 ####[facility] [address] [place], [address] Urea nitrogen [Mass/Vol] 8 mg/dL Normal 4-19 [facility] Comment on above: Performed By: #### L 100.0100, L500.4050, L501.2400, L501.2450 ####[facility] [address] [place], [address] Eosinophil percentageOrdered By: Dony Blank on 04-06-2025 Eosinophils/100 WBC (Bld) 1.5 % 0-5 [facility] Erythrocyte distribution wid th ratioOrdered By: Dony Blank on 04-06-2025 Erythrocyte distribution width (RBC) [Ratio] 12.9 % 11.6-14.6 [facility] Erythrocyte distribution wid th standard deviationOrdered By: Dony Blank on 04-06-2025 Erythrocyte distribution width (RBC) [Ratio] 40.2 fl 35.1-43.9 [facility] Glomerular filtration rate ( GFR) estimation/1.73 sq m using serum, plasma, or whole bOrdered By: Dony Blank on 04-06-2025 GFR/1.73 sq M.predicted among non-blacks MDRD (S/P/Bld) [Vol rate/Area] 107 mL/min/{1.73_m2} >60 [facility] Comment on above: mL/min/1.73m2 CKD-EP I Creatinine Equation (2020) Hematocrit Auto (Bld) [Volum e fraction]Ordered By: Dony Blank on 04-06-2025 Hematocrit (Bld) [Volume fraction] 42.7 % 37-47 [facility] Hemoglobin measurementOrdere d By: Dony Blank on 04-06-2025 Hemoglobin (Bld) [Mass/Vol] 14.2 g/dL 12.0-15.0 [facility] Immature granulocytes/100 WB C Auto (Bld)Ordered By: Dony Blank on 04-06-2025 Immature granulocytes/100 WBC (Bld) 0.300 % 0.0-0.9 [facility] Comment on above: IG% - Immature Granu locytes (promyelocytes, myelocytes and metamyelocytes) > 1% indicates that a LEFT SHIFT is Present. Internal Medicine Office Vis iton 04-06-2025 Internal Medicine Office Visit [facility] [address] [place] [address] [place] [address] OFFICE VISIT Date of Service: 04/06/25 MR#: [id number] Acct: [id number] Name: CARLA ANDERSON Rep #: [id number] : 1970 Provider: NELSON Giraldo Age/Sex: 54/F [place] [facility] Status: Signed Intake Vital Signs 01/24/25 10:44 [...] UPPER RT SIDE PAIN Chief Complaint: fu Orthopaedic Technologist Required: No Is patient in pain?: Yes [...] pressure which is not longer helping. [facility] Medical History Wears contact lenses Wears [...] She admits (more content not included)... Normal [facility] Laboratory - Chemistry and C hemistry - challengeOrdered By: Dony Blank on 04-06-2025 AST [Catalytic activity/Vol] 17 U/L <32 [facility] Lipaseon 04-06-2025 Lipase [Catalytic activity/Vol] 23 U/L Normal 13-75 [facility] Comment on above: Result Comment: Viri collins note: LIPASE revised reference range effective 23. New Lipase methodology. Expected to produce lower values than the previous assay method. NEW Reference Range: 13 - 75 U/L Performed By: #### L 100.0100, L500.4050, L501.2400, L501.2450 ####[facility] [address] [place], [address] Lipase measurementOrdered By : Dony Blank on 04-06-2025 Lipase [Catalytic activity/Vol] 23 U/L 13-75 [facility] Comment on above: Please note:LIPASE r evised reference range effective 23. New Lipase methodology. Expected to produce lower values than the previous assay method. NEW Reference Range: 13 - 75 U/L MCV (mean corpuscular volume ) determinationOrdered By: Dony Blank on 04-06-2025 MCV (RBC) [Entitic vol] 85.9 fL 81-99 [facility] Mean corpuscular hemoglobin (MCH) determinationOrdered By: Dony Blank on 04-06-2025 MCH (RBC) [Entitic mass] 28.6 pg 27.0-32.0 [facility] Mean corpuscular hemoglobin concentration (MCHC) determinationOrdered By: Dony Blank on 04-06-2025 MCHC (RBC) [Mass/Vol] 33.3 g/dL 32-36 [facility] Mean platelet volume determi nationOrdered By: Dony Blank on 04-06-2025 Platelet mean volume (Bld) [Entitic vol] 12.6 fL High 6.2-12.0 [facility] Monocyte percentageOrdered B y: Dony Blank on 04-06-2025 Monocytes/100 WBC (Bld) 6.8 % 0-10 [facility] Neutrophil percentageOrdered By: Dony Blank on 04-06-2025 Neutrophils/100 WBC (Bld) 51.5 % 47-70 [facility] Nucleated red blood cell per centageOrdered By: Dony Blank on 04-06-2025 Nucleated RBC/100 WBC (Bld) [Ratio] 0 % 0-5 [facility] Platelet countOrdered By: Yang Blank on 04-06-2025 Platelets (Bld) [#/Vol] 266 10*3/uL 150-450 [facility] Potassium measurement (mass/ volume)Ordered By: Dony Blank on 04-06-2025 Potassium (Unsp spec) [Mass/Vol] 4.7 mmol/L 3.3-5.1 [facility] RBC Auto (Bld) [#/Vol]Ordere d By: Dony Blank on 04-06-2025 RBC (Bld) [#/Vol] 4.97 10*6/uL 4.2-5.4 [facility] Serum creatinine measurement (mass/volume)Ordered By: Dony Blank on 04-06-2025 Creatinine [Mass/Vol] 0.58 mg/dL Low 0.70-1.20 [facility] Serum globulin measurementOr dered By: Dony Blank on 04-06-2025 Globulin (S) [Mass/Vol] 3.7 g/dL 2.2-4.2 [facility] Serum glucose measurement (m ass/volume)Ordered By: Dony Blank on 04-06-2025 Glucose [Mass/Vol] 88 mg/dL 70-99 [facility] Serum or plasma alanine zapata otransferase (ALT) measurementOrdered By: Dony Blank on 04-06-2025 ALT [Catalytic activity/Vol] 12 U/L <35 [facility] Serum or plasma albumin estefania urement (mass/volume)Ordered By: Dony Blank on 04-06-2025 Albumin [Mass/Vol] 4.3 g/dL 3.5-5.0 [facility] Serum or plasma albumin/glob ulin mass ratioOrdered By: Dony Blank on 04-06-2025 Albumin/Globulin [Mass ratio] 1.2 {ratio} 0.9-2.4 [facility] Serum or plasma alkaline russel sphatase measurementOrdered By: Dony Blank on 04-06-2025 ALP [Catalytic activity/Vol] 85 U/L 35-104 [facility] Serum or plasma amylase estefania urement (enzymatic activity/volume)Ordered By: Dony Blank on 04-06-2025 Amylase [Catalytic activity/Vol] 68 U/L 28-100 [facility] Serum or plasma calcium estefania urement (mass/volume)Ordered By: Dony Blank on 04-06-2025 Calcium [Mass/Vol] 9.8 mg/dL 7.6-11.0 [facility] Serum or plasma urea nitroge n measurement (mass/volume)Ordered By: Dony Blank on 04-06-2025 Urea nitrogen [Mass/Vol] 8 mg/dL 4-19 [facility] Sodium levelOrdered By: Gurdeep Blank on 04-06-2025 Sodium [Moles/Vol] 137 mmol/L 133-145 [facility] Total proteinOrdered By: Servando Blank on 04-06-2025 Protein [Mass/Vol] 8.0 g/dL 5.9-8.4 [facility] White blood cell (WBC) count Ordered By: Dony Blank on 04-06-2025 WBC (Bld) [#/Vol] 7.2 10*3/uL 4.4-11.0 [facility] Internal Medicine Office Vis iton 01-23-2025 Internal Medicine Office Visit [facility] [address] [place] [address] [place] [address] OFFICE VISIT Date of Service: 01/24/25 MR#: [id number] Acct: [id number] Name: CARLA ANDERSON Rep #: [id number] : 1970 Provider: Dr. Leah guadarrama MD Age/Sex: 54/F Location: [facility] Status: Signed Intake Vital Signs 12/06/24 07:07 [...] Intake Visit Reasons: fu Chief Complaint: fu Orthopaedic Technologist Required: No Accompanied by: Self Is patient [...] excessive swea (more content not included)... Normal [facility] Cardiac Cath Diagnosticon Cardiac Cath Diagnostic [facility] Imaging Services [address] [place] [address] Cardiac Cath Diagnostic MR#: [id number] Acct: [id number] Name: CARLA ANDERSON Rep #: [id number] : 1970 54 From: Carlos Muniz MD PCP: Dr. Leah Salvador MD Status:REG [facility] [place] [facility] Patient Name: CARLA ANDERSON Study Date: 12/06/2024 Performing: Carlos Muniz MD Ht: 68 inches 172.72 cm : 1970 Wt: 222.01 lbs 100.7 kg Age: 54 Gender: female BSA: 2.14 PROCEDURE(S) PERFORMED DC01-(70134)LHC/COR/LV CLINICAL PROFILE AND INDICATIONS Indications: Suspected CAD [...] multiple views using a 5 Fr. 4.0 Rush catheter. Right Coronary Artery selective angiography was then performed in multiple views using a 5 Fr. 4.0 Rush catheter. Left Ventriculography was performed in [place] [...] On 12/06/2024 08:24:16 Carlos Muniz MD 12/06/24 08 Date Carlos Murphy Signature: Date (if indicated) CC: Dr. Leah Salvador MD; Dr. Carlos Muniz MD Date Dictated: 12/06/24799 Date Transcribed: 12/06/24823 Addiction Psychiatrist: CO Signed Normal [facility] 12 Lead E[place] [facility] [place]28-2024 12 Lead EKG performed by [facility] [address] [place] [address] 12 Lead EKG performed by [facility] 11/28/24 1045 MR#: [id number] Acct: [id number] Name: CARLA ANDERSON Rep #: [id number] : 1970 54 From: Shyam Valencia MD Attending Dr: Dr. Shyam Valencia MD Status: DE P AMB Ordering Dr: Shyam Valencia MD Date: 11/28/24 Location: [place] Sex: F C Admitted: BMS/12 Lead EKG performed by [facility] ECG Report Interpretation ---Sinus Rhythm WITHIN NORMAL LIMITSElectronically signed on 11/28/2024 at 14:[address] Shyam Valencia [employer] Software Version 8610 11/28/24 1450 Date Shyam Valencia MD CC: Dr. Leah Salvador MD Date Dictated: 11/28/241044 Date Transcribed: 11/28/241044 Addiction Psychiatrist: Signed Normal [facility] Basic Metabolic Profile (BMP )on 11-28-2024 BUN/CRE 11.8 RATIO Normal 10-20 [facility] Comment on above: Performed By: #### L 300.3900, L500.2500, L100.0100 #### [facility] [address] [place], [address] CA,Total 9.3 mg/dL Normal 8.5-10.1 [facility] Comment on above: Performed By: #### L 300.3900, L500.2500, L100.0100 #### [facility] [address] [place], [address] Chloride [Moles/Vol] 105 mmol/L Normal 98-107 [facility] Comment on above: Performed By: #### L 300.3900, L500.2500, L100.0100 #### [facility] [address] [place], [address] CO2 [Moles/Vol] 30.0 mmol/L Normal 21.0-32.0 [facility] Comment on above: Performed By: #### L 300.3900, L500.2500, L100.0100 #### [facility] [address] [place], [address] Creatinine [Mass/Vol] 0.85 mg/dL Normal 0.55-1.02 [facility] Comment on above: Result Comment: The validity of the calculated GFR GFRAA in patients over 70 years has not been determined. Clinical correlation is essential. Performed By: #### L 300.3900, L500.2500, L100.0100 #### [facility] [address] [place], [address] EST GFR - AA 90 mL/min Normal >60 [facility] Comment on above: Result Comment: Afri can [place] GFR Calc Performed By: #### L 300.3900, L500.2500, L100.0100 #### [facility] [address] [place], [address] GAP 5 Normal 5-15 [facility] Comment on above: Performed By: #### L 300.3900, L500.2500, L100.0100 #### [facility] [address] [place], [address] GFR/1.73 sq M.predicted among non-blacks MDRD (S/P/Bld) [Vol rate/Area] 74 mL/min/{1.73_m2} Normal >60 [facility] Comment on above: Result Comment: Non- GFR Calc Performed By: #### L 300.3900, L500.2500, L100.0100 #### [facility] [address] [place], [address] Glucose [Mass/Vol] 123 mg/dL High 74-106 [facility] Comment on above: Result Comment: Fast ing Glucose result from 100 to 125 mg/dL suggests IMPAIRED HOMEOSTASIS per A.D.A. criteria. Performed By: #### L 300.3900, L500.2500, L100.0100 #### [facility] [address] [place], [address] Potassium [Moles/Vol] 3.9 mmol/L Normal 3.5-5.1 [facility] Comment on above: Performed By: #### L 300.3900, L500.2500, L100.0100 #### [facility] [address] [place], [address] Sodium [Moles/Vol] 140 mmol/L Normal 136-145 [facility] Comment on above: Performed By: #### L 300.3900, L500.2500, L100.0100 #### [facility] [address] [place], [address] Urea nitrogen [Mass/Vol] 10 mg/dL Normal 7-18 [facility] Comment on above: Performed By: #### L 300.3900, L500.2500, L100.0100 #### [facility] [address] [place], [address] CBC W/Diff, Automatedon 01-0 6-2024 Absolute Lymph 2.29 X10 3/uL Normal 0.83-4.51 [facility] Comment on above: Performed By: #### L 300.3900, L500.2500, L100.0100 #### [facility] [address] [place], [address] Absolute Neut 5.3 X10 3/uL Normal 2.0-7.7 [facility] Comment on above: Performed By: #### L 300.3900, L500.2500, L100.0100 #### [facility] [address] [place], [address] Basophils/100 WBC (Bld) 0.7 % Normal 0-1 [facility] Comment on above: Performed By: #### L 300.3900, L500.2500, L100.0100 #### [facility] [address] [place], [address] Eosinophils/100 WBC (Bld) 1.6 % Normal 0-5 [facility] Comment on above: Performed By: #### L 300.3900, L500.2500, L100.0100 #### [facility] [address] [place], [address] Erythrocyte distribution width (RBC) [Ratio] 12.8 % Normal 11.6-14.6 [facility] Comment on above: Performed By: #### L 300.3900, L500.2500, L100.0100 #### [facility] [address] [place], [address] Hematocrit (Bld) [Volume fraction] 40.3 % Normal 37-47 [facility] Comment on above: Performed By: #### L 300.3900, L500.2500, L100.0100 #### [facility] [address] [place], [address] Hemoglobin (Bld) [Mass/Vol] 13.5 g/dL Normal 12.0-15.0 [facility] Comment on above: Performed By: #### L 300.3900, L500.2500, L100.0100 #### [facility] [address] [place], [address] IG% 0.500 Normal 0.0-0.9 [facility] Comment on above: Result Comment: IG% - Immature Granulocytes (promyelocytes, myelocytes and metamyelocytes) > 1% indicates that a LEFT SHIFT is Present. Performed By: #### L 300.3900, L500.2500, L100.0100 #### [facility] [address] [place], [address] Lymphocytes/100 WBC (Bld) 26.8 % Normal 19-41 [facility] Comment on above: Performed By: #### L 300.3900, L500.2500, L100.0100 #### [facility] [address] [place], [address] MCH (RBC) [Entitic mass] 28.5 pg Normal 27.0-32.0 [facility] Comment on above: Performed By: #### L 300.3900, L500.2500, L100.0100 #### [facility] [address] [place], [address] MCHC (RBC) [Mass/Vol] 33.5 g/dL Normal 32-36 [facility] Comment on above: Performed By: #### L 300.3900, L500.2500, L100.0100 #### [facility] [address] [place], [address] MCV (RBC) [Entitic vol] 85.0 fL Normal 81-99 [facility] Comment on above: Performed By: #### L 300.3900, L500.2500, L100.0100 #### [facility] [address] [place], [address] Monocytes/100 WBC (Bld) 7.8 % Normal 0-10 [facility] Comment on above: Performed By: #### L 300.3900, L500.2500, L100.0100 #### [facility] [address] [place], [address] Neutrophils/100 WBC (Bld) 62.6 % Normal 47-70 [facility] Comment on above: Performed By: #### L 300.3900, L500.2500, L100.0100 #### [facility] [address] [place], [address] Nucleated RBC (Bld) [#/Vol] 0 10*3/uL Normal 0-5 [facility] Comment on above: Performed By: #### L 300.3900, L500.2500, L100.0100 #### [facility] [address] [place], [address] Platelet mean volume (Bld) [Entitic vol] 12.8 fL High 6.2-12.0 [facility] Comment on above: Performed By: #### L 300.3900, L500.2500, L100.0100 #### [facility] [address] [place], [address] Platelets (Bld) [#/Vol] 226 10*3/uL Normal 150-450 [facility] Comment on above: Performed By: #### L 300.3900, L500.2500, L100.0100 #### [facility] [address] [place], [address] RBC (Bld) [#/Vol] 4.74 10*6/uL Normal 4.2-5.4 [facility] Comment on above: Performed By: #### L 300.3900, L500.2500, L100.0100 #### [facility] [address] [place], [address] RDW SD 39.4 fl Normal 35.1-43.9 [facility] Comment on above: Performed By: #### L 300.3900, L500.2500, L100.0100 #### [facility] [address] [place], [address] WBC (Bld) [#/Vol] 8.5 10*3/uL Normal 4.4-11.0 [facility] Comment on above: Performed By: #### L 300.3900, L500.2500, L100.0100 #### [facility] [address] [place], [address] Cardiology Visit Reporton Cardiology Visit Report [facility] [address] [place] [address] OFFICE VISIT Date of Service: 11/28/24 MR#: [id number] Acct: [id number] Name: CARLA ANDERSON Rep #: [id number] : 1970 Provider: Dr. Shyam sesay MD Age/Sex: 54/F [place] [facility] Status: Signed HPI HPI History of Present [...] air Intake Visit Reasons: ABN Stress (Madeleine) Orthopaedic Technologist Required: No Accompanied by: Self Is patient [...] (chest t (more content not included)... Normal [facility] Chest PA and Lateralon 11-28 Chest PA and Lateral [facility] Imaging Services [address] [place], [place] [address] Chest PA and Lateral MR#: [id number] Acct: [id number] Name: CARLA ANDERSON Rep #: [id number] : 1970 F 54 From: Ellen garcia MD PCP: Dr. Leah Salvador MD Status: REG CLI Study: Chest PA and Lateral Date of Exam: 11/28/24 Exam# [id number] Ordering Dr: [place] [id number] HISTORY: Cath pre op. TECHNIQUE: XR Chest [...] Leah Salvador MD; Dr. Shyam Valencia MD Addiction Psychiatrist: Signed Normal [facility] Prothrombin Time w/INRon INR Coag (PPP) [Relative time] 1.0 {INR} Normal [facility] Comment on above: Performed By: #### L 300.3900, L500.2500, L100.0100 #### [facility] [address] [place], [place], [id number] PT Coag (PPP) [Time] 13.0 s Normal 11.7-14.9 [facility] Comment on above: Performed By: #### L 300.3900, L500.2500, L100.0100 #### [facility] [address] [place], [address] Hemoglobin A1con 11-01-2024 HbA1c (Bld) [Mass fraction] 5.6 % Normal 3.8-5.6 [facility] Comment on above: Result Comment: Norm al < 5.7 % Prediabetic 5.7 - 6.4 % Diabetic >or= 6.5 % Please note range changes. Performed By: #### L 501.9985 ####[facility] [address] [place], [address] Internal Medicine Office Vis iton 10-19-2024 Internal Medicine Office Visit [facility] [address] [place] [address] OFFICE VISIT Date of Service: 10/24/24 MR#: [id number] Acct: [id number] Name: CARLA ANDERSON Rep #: [id number] : 1970 Provider: Dr. Leah guadarrama MD Age/Sex: 54/F [place] [facility] Status: Signed Intake Vital Signs 04/20/24 07:28 [...] air Intake Visit Reasons: 6 M FU Orthopaedic Technologist Required: No Is patient in pain?: No [...] results as she never heard back. [facility] Medical History Wears contact lenses Wears [...] patient continues to do well on the [employer] for her mental health. She reports that [...] ED in (more content not included)... Normal [facility] Gallbladderon 08-30-2024 Gallbladder [facility] Imaging Services [address] [place] [address] Gallbladder MR#: [id number] Acct: [id number] Name: CARLA ANDERSON Rep #: [id number] : 1970 F 54 From: Wilberto madrigal MD PCP: Dr. Leah Salvador MD Status: REG CLI Study: Gallbladder Date of Exam: 08/30/24 Exam# [id number] Ordering Dr: [place] [id number] STUDY: ABDOMINAL ULTRASOUND - RIGHT UPPER QUADRANT [...] Leah Salvador MD; Dr. Cosmo Syed MD Addiction Psychiatrist: Signed Normal [facility] Basic Metabolic Profile (BMP )on 08-29-2024 BUN/CRE 10.7 RATIO Normal 10-20 [facility] Comment on above: Performed By: #### L 500.2500, L500.4050, L501.2450, L100.0100, L500.3400 ####[facility] [address] [place], [address] CA,Total 9.7 mg/dL Normal 8.5-10.1 [facility] Comment on above: Performed By: #### L 500.2500, L500.4050, L501.2450, L100.0100, L500.3400 ####[facility] [address] [place], [address] Chloride [Moles/Vol] 104 mmol/L Normal 98-107 [facility] Comment on above: Performed By: #### L 500.2500, L500.4050, L501.2450, L100.0100, L500.3400 ####[facility] [address] [place], [address] CO2 [Moles/Vol] 29.0 mmol/L Normal 21.0-32.0 [facility] Comment on above: Performed By: #### L 500.2500, L500.4050, L501.2450, L100.0100, L500.3400 ####[facility] [address] [place], [address] Creatinine [Mass/Vol] 0.75 mg/dL Normal 0.55-1.02 [facility] Comment on above: Result Comment: The validity of the calculated GFR GFRAA in patients over 70 years has not been determined. Clinical correlation is essential. Performed By: #### L 500.2500, L500.4050, L501.2450, L100.0100, L500.3400 ####[facility] [address] [place], [address] ECRCL 105.67 ml/min Normal [facility] Comment on above: Performed By: #### L 500.2500, L500.4050, L501.2450, L100.0100, L500.3400 ####[facility] [address] [place], [address] EST GFR - AA 104 mL/min Normal >60 [facility] Comment on above: Result Comment: Afri can [place] GFR Calc Performed By: #### L 500.2500, L500.4050, L501.2450, L100.0100, L500.3400 ####[facility] [address] [place], [address] GAP 7 Normal 5-15 [facility] Comment on above: Performed By: #### L 500.2500, L500.4050, L501.2450, L100.0100, L500.3400 ####[facility] [address] [place], [address] GFR/1.73 sq M.predicted among non-blacks MDRD (S/P/Bld) [Vol rate/Area] 86 mL/min/{1.73_m2} Normal >60 [facility] Comment on above: Result Comment: Non- GFR Calc Performed By: #### L 500.2500, L500.4050, L501.2450, L100.0100, L500.3400 ####[facility] [address] [place], [address] Glucose [Mass/Vol] 119 mg/dL High 74-106 [facility] Comment on above: Result Comment: Fast ing Glucose result from 100 to 125 mg/dL suggests IMPAIRED HOMEOSTASIS per A.D.A. criteria. Performed By: #### L 500.2500, L500.4050, L501.2450, L100.0100, L500.3400 ####[facility] [address] [place], [address] Potassium [Moles/Vol] 3.8 mmol/L Normal 3.5-5.1 [facility] Comment on above: Performed By: #### L 500.2500, L500.4050, L501.2450, L100.0100, L500.3400 ####[facility] [address] [place], [address] Sodium [Moles/Vol] 140 mmol/L Normal 136-145 [facility] Comment on above: Performed By: #### L 500.2500, L500.4050, L501.2450, L100.0100, L500.3400 ####[facility] [address] [place], [address] Urea nitrogen [Mass/Vol] 8 mg/dL Normal 7-18 [facility] Comment on above: Performed By: #### L 500.2500, L500.4050, L501.2450, L100.0100, L500.3400 ####[facility] [address] [place], [address] CBC W/Diff, Automatedon 10-0 Absolute Lymph 4.33 X10 3/uL Normal 0.83-4.51 [facility] Comment on above: Performed By: #### L 500.2500, L500.4050, L501.2450, L100.0100, L500.3400 ####[facility] [address] [place], [address] Absolute Neut 5.5 X10 3/uL Normal 2.0-7.7 [facility] Comment on above: Performed By: #### L 500.2500, L500.4050, L501.2450, L100.0100, L500.3400 ####[facility] [address] [place], [address] Basophils/100 WBC (Bld) 0.6 % Normal 0-1 [facility] Comment on above: Performed By: #### L 500.2500, L500.4050, L501.2450, L100.0100, L500.3400 ####[facility] [address] [place], [address] Eosinophils/100 WBC (Bld) 1.8 % Normal 0-5 [facility] Comment on above: Performed By: #### L 500.2500, L500.4050, L501.2450, L100.0100, L500.3400 ####[facility] [address] [place], [address] Erythrocyte distribution width (RBC) [Ratio] 13.4 % Normal 11.6-14.6 [facility] Comment on above: Performed By: #### L 500.2500, L500.4050, L501.2450, L100.0100, L500.3400 ####[facility] [address] [place], [address] Hematocrit (Bld) [Volume fraction] 39.7 % Normal 37-47 [facility] Comment on above: Performed By: #### L 500.2500, L500.4050, L501.2450, L100.0100, L500.3400 ####[facility] [address] [place], [address] Hemoglobin (Bld) [Mass/Vol] 13.1 g/dL Normal 12.0-15.0 [facility] Comment on above: Performed By: #### L 500.2500, L500.4050, L501.2450, L100.0100, L500.3400 ####[facility] [address] [place], [address] IG% 0.400 Normal 0.0-0.9 [facility] Comment on above: Result Comment: IG% - Immature Granulocytes (promyelocytes, myelocytes and metamyelocytes) > 1% indicates that a LEFT SHIFT is Present. Performed By: #### L 500.2500, L500.4050, L501.2450, L100.0100, L500.3400 ####[facility] [address] [place], [address] Lymphocytes/100 WBC (Bld) 38.9 % Normal 19-41 [facility] Comment on above: Performed By: #### L 500.2500, L500.4050, L501.2450, L100.0100, L500.3400 ####[facility] [address] [place], [address] MCH (RBC) [Entitic mass] 28.4 pg Normal 27.0-32.0 [facility] Comment on above: Performed By: #### L 500.2500, L500.4050, L501.2450, L100.0100, L500.3400 ####[facility] [address] [place], [address] MCHC (RBC) [Mass/Vol] 33.0 g/dL Normal 32-36 [facility] Comment on above: Performed By: #### L 500.2500, L500.4050, L501.2450, L100.0100, L500.3400 ####[facility] [address] [place], [address] MCV (RBC) [Entitic vol] 86.1 fL Normal 81-99 [facility] Comment on above: Performed By: #### L 500.2500, L500.4050, L501.2450, L100.0100, L500.3400 ####[facility] [address] [place], [address] Monocytes/100 WBC (Bld) 8.8 % Normal 0-10 [facility] Comment on above: Performed By: #### L 500.2500, L500.4050, L501.2450, L100.0100, L500.3400 ####[facility] [address] [place], [address] Neutrophils/100 WBC (Bld) 49.5 % Normal 47-70 [facility] Comment on above: Performed By: #### L 500.2500, L500.4050, L501.2450, L100.0100, L500.3400 ####[facility] [address] [place], [address] Nucleated RBC (Bld) [#/Vol] 0 10*3/uL Normal 0-5 [facility] Comment on above: Performed By: #### L 500.2500, L500.4050, L501.2450, L100.0100, L500.3400 ####[facility] [address] [place], [address] Platelet mean volume (Bld) [Entitic vol] 12.2 fL High 6.2-12.0 [facility] Comment on above: Performed By: #### L 500.2500, L500.4050, L501.2450, L100.0100, L500.3400 ####[facility] [address] [place], [address] Platelets (Bld) [#/Vol] 238 10*3/uL Normal 150-450 [facility] Comment on above: Performed By: #### L 500.2500, L500.4050, L501.2450, L100.0100, L500.3400 ####[facility] [address] [place], [address] RBC (Bld) [#/Vol] 4.61 10*6/uL Normal 4.2-5.4 [facility] Comment on above: Performed By: #### L 500.2500, L500.4050, L501.2450, L100.0100, L500.3400 ####[facility] [address] [place], [address] RDW SD 42.0 fl Normal 35.1-43.9 [facility] Comment on above: Performed By: #### L 500.2500, L500.4050, L501.2450, L100.0100, L500.3400 ####[facility] [address] [place], [address] WBC (Bld) [#/Vol] 11.1 10*3/uL High 4.4-11.0 [facility] Comment on above: Performed By: #### L 500.2500, L500.4050, L501.2450, L100.0100, L500.3400 ####[facility] [address] [place], [address] Absolute Neut Normal 2.0-7.7 [facility] Comment on above: Result Comment: DUPL ICATE ORDER Performed By: #### L 100.0100 #### [facility] [address] [place], [address] HCT Normal 37-47 [facility] Comment on above: Result Comment: DUPL ICATE ORDER Performed By: #### L 100.0100 #### [facility] [address] [place], [address] HGB Normal 12.0-15.0 [facility] Comment on above: Result Comment: DUPL ICATE ORDER Performed By: #### L 100.0100 #### [facility] [address] [place], [address] MCH Normal 27.0-32.0 [facility] Comment on above: Result Comment: DUPL ICATE ORDER Performed By: #### L 100.0100 #### [facility] [address] [place], [address] MCHC Normal 32-36 [facility] Comment on above: Result Comment: DUPL ICATE ORDER Performed By: #### L 100.0100 #### [facility] [address] [place], [address] MCV Normal 81-99 [facility] Comment on above: Result Comment: DUPL ICATE ORDER Performed By: #### L 100.0100 #### [facility] [address] [place], [address] NEUT% Normal 47-70 [facility] Comment on above: Result Comment: DUPL ICATE ORDER Performed By: #### L 100.0100 #### [facility] [address] [place], [address] PLT Normal 150-450 [facility] Comment on above: Result Comment: DUPL ICATE ORDER Performed By: #### L 100.0100 #### [facility] [address] [place], [address] RBC Normal 4.2-5.4 [facility] Comment on above: Result Comment: DUPL ICATE ORDER Performed By: #### L 100.0100 #### [facility] [address] [place], [address] RDW CV Normal 11.6-14.6 [facility] Comment on above: Result Comment: DUPL ICATE ORDER Performed By: #### L 100.0100 #### [facility] [address] [place], [address] RDW SD Normal 35.1-43.9 [facility] Comment on above: Result Comment: DUPL ICATE ORDER Performed By: #### L 100.0100 #### [facility] [address] [place], [address] WBC Normal 4.4-11.0 [facility] Comment on above: Result Comment: DUPL ICATE ORDER Performed By: #### L 100.0100 #### [facility] [address] [place], [address] Comprehensive Metabolic Prof ilon 08-29-2024 Albumin/Globulin [Mass ratio] 0.9 {ratio} Normal 0.9-2.4 [facility] Comment on above: Performed By: #### L 500.2500, L500.4050, L501.2450, L100.0100, L500.3400 ####[facility] [address] [place], [address] Emergency Department Summary on 08-29-2024 Emergency Department Summary [facility] Medical Records Department [address] [place] [address] Emergency Department Summary 08/29/24 MR#: [id number] Acct: [id number] Name: CARLA ANDERSON Rep #: [id number] : 1970 54 From: Cosmo Syed MD [...] similar symptoms: No Recent Illness/Hospitalization : No PFSH [facility] Medical History Wears contact lenses Wears [...] Blood Pre (more content not included)... Normal [facility] Lipaseon 08-29-2024 Lipase [Catalytic activity/Vol] 27 U/L Normal 13-75 [facility] Comment on above: Result Comment: Viri collins note: LIPASE revised reference range effective 23. New Lipase methodology. Expected to produce lower values than the previous assay method. NEW Reference Range: 13 - 75 U/L Performed By: #### L 500.2500, L500.4050, L501.2450, L100.0100, L500.3400 ####[facility] [address] [place], [place], [address] Liver Profileon 08-29-2024 Albumin [Mass/Vol] 3.7 g/dL Normal 3.2-5.0 [facility] Comment on above: Performed By: #### L 500.2500, L500.4050, L501.2450, L100.0100, L500.3400 ####[facility] [address] [place], [place], [address] ALK P 83 U/L Normal 45-117 [facility] Comment on above: Performed By: #### L 500.2500, L500.4050, L501.2450, L100.0100, L500.3400 ####[facility] [address] [place], [address] ALT [Catalytic activity/Vol] 15 U/L Normal 13-56 [facility] Comment on above: Performed By: #### L 500.2500, L500.4050, L501.2450, L100.0100, L500.3400 ####[facility] [address] [place], [address] AST [Catalytic activity/Vol] 11 U/L Low 15-37 [facility] Comment on above: Performed By: #### L 500.2500, L500.4050, L501.2450, L100.0100, L500.3400 ####[facility] [address] [place], [address] Bilirubin [Mass/Vol] 0.20 mg/dL Normal 0.20-1.00 [facility] Comment on above: Result Comment: For patients on eltrombopag therapy, use of Dimension [place] TBIL is not recommended. Performed By: #### L 500.2500, L500.4050, L501.2450, L100.0100, L500.3400 ####[facility] [address] [place], [address] D BILI < 0.05 Normal 0.00-0.30 [facility] Comment on above: Performed By: #### L 500.2500, L500.4050, L501.2450, L100.0100, L500.3400 ####[facility] [address] [place], [address] Globulin (S) [Mass/Vol] 4.1 g/dL Normal 2.2-4.2 [facility] Comment on above: Performed By: #### L 500.2500, L500.4050, L501.2450, L100.0100, L500.3400 ####[facility] [address] [place], [address] T PROT 7.8 g/dL Normal 6.4-8.2 [facility] Comment on above: Performed By: #### L 500.2500, L500.4050, L501.2450, L100.0100, L500.3400 ####[facility] [address] [place], [address] Urinalysis, Completeon 08-29 AMORPHOUS R Normal [facility] Comment on above: Order Comment: JOANNE CTOR TO SPECIFY Performed By: #### L 400.0001 #### [facility] [address] [place], [address] BACTERIA RARE Normal None Seen [facility] Comment on above: Order Comment: JOANNE CTOR TO SPECIFY Performed By: #### L 400.0001 #### [facility] [address] [place], [address] EPI,SQUAMOUS 0-5 SEEN Normal 5-10 [facility] Comment on above: Order Comment: JOANNE CTOR TO SPECIFY Performed By: #### L 400.0001 #### [facility] [address] [place], [address] WBC 5-10 SEEN Normal 0-5 [facility] Comment on above: Order Comment: JOANNE CTOR TO SPECIFY Performed By: #### L 400.0001 #### [facility] [address] [place], [address] Mucus Ql (Urine sed) 0 SEEN Normal [facility] Comment on above: Order Comment: JOANNE CTOR TO SPECIFY Performed By: #### L 400.0001 #### [facility] [address] [place], [address] RBC 0 SEEN Normal 0-5 [facility] Comment on above: Order Comment: JOANNE CTOR TO SPECIFY Performed By: #### L 400.0001 #### [facility] [address] [place], [address] BACTERIA Normal None Seen [facility] Comment on above: Order Comment: CLEAN CATCH Result Comment: DUPL ICATE ORDER Performed By: #### L 400.0001 #### [facility] [address] [place], [address] BILIRUBIN URINE Normal Negative [facility] Comment on above: Order Comment: CLEAN CATCH Result Comment: DUPL ICATE ORDER Performed By: #### L 400.0001 #### [facility] [address] [place], [address] Clarity (U) Normal Clear [facility] Comment on above: Order Comment: CLEAN CATCH Result Comment: DUPL ICATE ORDER Performed By: #### L 400.0001 #### [facility] [address] [place], [address] Color (U) Normal Yellow [facility] Comment on above: Order Comment: CLEAN CATCH Result Comment: DUPL ICATE ORDER Performed By: #### L 400.0001 #### [facility] [address] [place], [address] EPI,SQUAMOUS Normal 5-10 [facility] Comment on above: Order Comment: CLEAN CATCH Result Comment: DUPL ICATE ORDER Performed By: #### L 400.0001 #### [facility] [address] [place], [address] GLUCOSE, UR Normal Normal [facility] Comment on above: Order Comment: CLEAN CATCH Result Comment: DUPL ICATE ORDER Performed By: #### L 400.0001 #### [facility] [address] [place], [address] KETONE UR Normal Negative [facility] Comment on above: Order Comment: CLEAN CATCH Result Comment: DUPL ICATE ORDER Performed By: #### L 400.0001 #### [facility] [address] [place], [address] LEUK ESTERASE Normal Negative [facility] Comment on above: Order Comment: CLEAN CATCH Result Comment: DUPL ICATE ORDER Performed By: #### L 400.0001 #### [facility] [address] [place], [address] Mucus Ql (Urine sed) Normal [facility] Comment on above: Order Comment: CLEAN CATCH Result Comment: DUPL ICATE ORDER Performed By: #### L 400.0001 #### [facility] [address] [place], [address] Nitrite Ql (U) Normal Negative [facility] Comment on above: Order Comment: CLEAN CATCH Result Comment: DUPL ICATE ORDER Performed By: #### L 400.0001 #### [facility] [address] [place], [address] OCCULT BLOOD-UR Normal Negative [facility] Comment on above: Order Comment: CLEAN CATCH Result Comment: DUPL ICATE ORDER Performed By: #### L 400.0001 #### [facility] [address] [place], [address] pH UR Normal 5.0 - 8.0 [facility] Comment on above: Order Comment: CLEAN CATCH Result Comment: DUPL ICATE ORDER Performed By: #### L 400.0001 #### [facility] [address] [place], [address] PROT DIPSTX Normal Negative [facility] Comment on above: Order Comment: CLEAN CATCH Result Comment: DUPL ICATE ORDER Performed By: #### L 400.0001 #### [facility] [address] [place], [address] RBC Normal 0-5 [facility] Comment on above: Order Comment: CLEAN CATCH Result Comment: DUPL ICATE ORDER Performed By: #### L 400.0001 #### [facility] [address] [place], [address] SP.GR. DIPSTX Normal 1.002-1.030 [facility] Comment on above: Order Comment: CLEAN CATCH Result Comment: DUPL ICATE ORDER Performed By: #### L 400.0001 #### [facility] [address] [place], [address] UR Preservative Normal [facility] Comment on above: Order Comment: CLEAN CATCH Result Comment: DUPL ICATE ORDER Performed By: #### L 400.0001 #### [facility] [address] [place], [address] UROBILI Normal Normal [facility] Comment on above: Order Comment: CLEAN CATCH Result Comment: DUPL ICATE ORDER Performed By: #### L 400.0001 #### [facility] [address] [place], [address] WBC Normal 0-5 [facility] Comment on above: Order Comment: CLEAN CATCH Result Comment: DUPL ICATE ORDER Performed By: #### L 400.0001 #### [facility] [address] [place], [address] Stress Reporton 08-10-2024 Stress Report [facility] [address] [place] [address] MR#: [id number] Acct: [id number] Name: CARLA ANDERSON Rep #: [id number] : 1970 54 From: Kathy Carter MD [...] of 77%. This note was generated with [employer] software. It may contain incorrect words, spelling, and punctuation that were not noted in checking the note before signing. 08/10/241411 Date Kathy Carter MD CC: Dr. Leah Salvador MD; NELSON Giraldo Date Dictated: 08/10/241409 Date Transcribed: 08/10/241409 Addiction Psychiatrist: SHELLIE Signed Normal [facility] DEB w/ Reflex Mult Confirmon 06-30-2024 DEB,DIRECT Negative Normal Negative [facility] Comment on above: Result Comment: Perf ormed at: - [facility] [id number] Engineering Clerk: Greg iNcholson PhD, Phone: [phone] Performed By: #### L 500.4050, L500.4100, L506.1000, L100.0100, L3100.5450 ####[facility] [address] [place], [address] CBC W/Diff, Automatedon 08-0 7-2024 Absolute Lymph 2.97 X10 3/uL Normal 0.83-4.51 [facility] Comment on above: Performed By: #### L 500.4050, L500.4100, L506.1000, L100.0100, L3100.5450 ####[facility] [address] [place], [address] Absolute Neut 3.0 X10 3/uL Normal 2.0-7.7 [facility] Comment on above: Performed By: #### L 500.4050, L500.4100, L506.1000, L100.0100, L3100.5450 ####[facility] [address] [place], [address] Basophils/100 WBC (Bld) 0.8 % Normal 0-1 [facility] Comment on above: Performed By: #### L 500.4050, L500.4100, L506.1000, L100.0100, L3100.5450 ####[facility] [address] [place], [address] Eosinophils/100 WBC (Bld) 1.7 % Normal 0-5 [facility] Comment on above: Performed By: #### L 500.4050, L500.4100, L506.1000, L100.0100, L3100.5450 ####[facility] [address] [place], [address] Erythrocyte distribution width (RBC) [Ratio] 13.2 % Normal 11.6-14.6 [facility] Comment on above: Performed By: #### L 500.4050, L500.4100, L506.1000, L100.0100, L3100.5450 ####[facility] [address] [place], [address] Hematocrit (Bld) [Volume fraction] 44.9 % Normal 37-47 [facility] Comment on above: Performed By: #### L 500.4050, L500.4100, L506.1000, L100.0100, L3100.5450 ####[facility] [address] [place], [address] Hemoglobin (Bld) [Mass/Vol] 14.6 g/dL Normal 12.0-15.0 [facility] Comment on above: Performed By: #### L 500.4050, L500.4100, L506.1000, L100.0100, L3100.5450 ####[facility] [address] [place], [address] IG% 0.300 Normal 0.0-0.9 [facility] Comment on above: Result Comment: IG% - Immature Granulocytes (promyelocytes, myelocytes and metamyelocytes) > 1% indicates that a LEFT SHIFT is Present. Performed By: #### L 500.4050, L500.4100, L506.1000, L100.0100, L3100.5450 ####[facility] [address] [place], [address] Lymphocytes/100 WBC (Bld) 44.7 % High 19-41 [facility] Comment on above: Performed By: #### L 500.4050, L500.4100, L506.1000, L100.0100, L3100.5450 ####[facility] [address] [place], [address] MCH (RBC) [Entitic mass] 27.6 pg Normal 27.0-32.0 [facility] Comment on above: Performed By: #### L 500.4050, L500.4100, L506.1000, L100.0100, L3100.5450 ####[facility] [address] [place], [address] MCHC (RBC) [Mass/Vol] 32.5 g/dL Normal 32-36 [facility] Comment on above: Performed By: #### L 500.4050, L500.4100, L506.1000, L100.0100, L3100.5450 ####[facility] [address] [place], [address] MCV (RBC) [Entitic vol] 84.9 fL Normal 81-99 [facility] Comment on above: Performed By: #### L 500.4050, L500.4100, L506.1000, L100.0100, L3100.5450 ####[facility] [address] [place], [address] Monocytes/100 WBC (Bld) 7.2 % Normal 0-10 [facility] Comment on above: Performed By: #### L 500.4050, L500.4100, L506.1000, L100.0100, L3100.5450 ####[facility] [address] [place], [address] Neutrophils/100 WBC (Bld) 45.3 % Low 47-70 [facility] Comment on above: Performed By: #### L 500.4050, L500.4100, L506.1000, L100.0100, L3100.5450 ####[facility] [address] [place], [address] Nucleated RBC (Bld) [#/Vol] 0 10*3/uL Normal 0-5 [facility] Comment on above: Performed By: #### L 500.4050, L500.4100, L506.1000, L100.0100, L3100.5450 ####[facility] [address] [place], [address] Platelet mean volume (Bld) [Entitic vol] 13.1 fL High 6.2-12.0 [facility] Comment on above: Performed By: #### L 500.4050, L500.4100, L506.1000, L100.0100, L3100.5450 ####[facility] [address] [place], [address] Platelets (Bld) [#/Vol] 246 10*3/uL Normal 150-450 [facility] Comment on above: Performed By: #### L 500.4050, L500.4100, L506.1000, L100.0100, L3100.5450 ####[facility] [address] [place], [address] RBC (Bld) [#/Vol] 5.29 10*6/uL Normal 4.2-5.4 [facility] Comment on above: Performed By: #### L 500.4050, L500.4100, L506.1000, L100.0100, L3100.5450 ####[facility] [address] [place], [address] RDW SD 41.0 fl Normal 35.1-43.9 [facility] Comment on above: Performed By: #### L 500.4050, L500.4100, L506.1000, L100.0100, L3100.5450 ####[facility] [address] [place], [address] WBC (Bld) [#/Vol] 6.7 10*3/uL Normal 4.4-11.0 [facility] Comment on above: Performed By: #### L 500.4050, L500.4100, L506.1000, L100.0100, L3100.5450 ####[facility] [address] [place], [address] Comprehensive Metabolic Prof [facility] 06-29-2024 Albumin [Mass/Vol] 3.9 g/dL Normal 3.2-5.0 [facility] Comment on above: Performed By: #### L 500.4050, L500.4100, L506.1000, L100.0100, L3100.5450 ####[facility] [address] [place], [address] Albumin/Globulin [Mass ratio] 0.9 {ratio} Normal 0.9-2.4 [facility] Comment on above: Performed By: #### L 500.4050, L500.4100, L506.1000, L100.0100, L3100.5450 ####[facility] [address] [place], [address] ALK P 97 U/L Normal 45-117 [facility] Comment on above: Performed By: #### L 500.4050, L500.4100, L506.1000, L100.0100, L3100.5450 ####[facility] [address] [place], [address] ALT [Catalytic activity/Vol] 21 U/L Normal 13-56 [facility] Comment on above: Performed By: #### L 500.4050, L500.4100, L506.1000, L100.0100, L3100.5450 ####[facility] [address] [place], [address] AST [Catalytic activity/Vol] 15 U/L Normal 15-37 [facility] Comment on above: Performed By: #### L 500.4050, L500.4100, L506.1000, L100.0100, L3100.5450 ####[facility] [address] [place], [address] Bilirubin [Mass/Vol] 0.40 mg/dL Normal 0.20-1.00 [facility] Comment on above: Result Comment: For patients on eltrombopag therapy, use of Dimension [place] TBIL is not recommended. Performed By: #### L 500.4050, L500.4100, L506.1000, L100.0100, L3100.5450 ####[facility] [address] [place], [address] BUN/CRE 15.5 RATIO Normal 10-20 [facility] Comment on above: Performed By: #### L 500.4050, L500.4100, L506.1000, L100.0100, L3100.5450 ####[facility] [address] [place], [address] CA,Total 9.5 mg/dL Normal 8.5-10.1 [facility] Comment on above: Performed By: #### L 500.4050, L500.4100, L506.1000, L100.0100, L3100.5450 ####[facility] [address] [place], [address] Chloride [Moles/Vol] 105 mmol/L Normal 98-107 [facility] Comment on above: Performed By: #### L 500.4050, L500.4100, L506.1000, L100.0100, L3100.5450 ####[facility] [address] [place], [address] CO2 [Moles/Vol] 28.0 mmol/L Normal 21.0-32.0 [facility] Comment on above: Performed By: #### L 500.4050, L500.4100, L506.1000, L100.0100, L3100.5450 ####[facility] [address] [place], [address] Creatinine [Mass/Vol] 0.71 mg/dL Normal 0.55-1.02 [facility] Comment on above: Result Comment: The validity of the calculated GFR GFRAA in patients over 70 years has not been determined. Clinical correlation is essential. Performed By: #### L 500.4050, L500.4100, L506.1000, L100.0100, L3100.5450 ####[facility] [address] [place], [address] EST GFR - AA 111 mL/min Normal >60 [facility] Comment on above: Result Comment: Afri can [place] GFR Calc Performed By: #### L 500.4050, L500.4100, L506.1000, L100.0100, L3100.5450 ####[facility] [address] [place], [address] GAP 6 Normal 5-15 [facility] Comment on above: Performed By: #### L 500.4050, L500.4100, L506.1000, L100.0100, L3100.5450 ####[facility] [address] [place], [address] GFR/1.73 sq M.predicted among non-blacks MDRD (S/P/Bld) [Vol rate/Area] 91 mL/min/{1.73_m2} Normal >60 [facility] Comment on above: Result Comment: Non- GFR Calc Performed By: #### L 500.4050, L500.4100, L506.1000, L100.0100, L3100.5450 ####[facility] [address] [place], [address] Globulin (S) [Mass/Vol] 4.4 g/dL High 2.2-4.2 [facility] Comment on above: Performed By: #### L 500.4050, L500.4100, L506.1000, L100.0100, L3100.5450 ####[facility] [address] [place], [address] Glucose [Mass/Vol] 91 mg/dL Normal 74-106 [facility] Comment on above: Performed By: #### L 500.4050, L500.4100, L506.1000, L100.0100, L3100.5450 ####[facility] [address] [place], [address] Potassium [Moles/Vol] 4.2 mmol/L Normal 3.5-5.1 [facility] Comment on above: Performed By: #### L 500.4050, L500.4100, L506.1000, L100.0100, L3100.5450 ####[facility] [address] [place], [address] Sodium [Moles/Vol] 139 mmol/L Normal 136-145 [facility] Comment on above: Performed By: #### L 500.4050, L500.4100, L506.1000, L100.0100, L3100.5450 ####[facility] [address] [place], [address] T PROT 8.3 g/dL High 6.4-8.2 [facility] Comment on above: Performed By: #### L 500.4050, L500.4100, L506.1000, L100.0100, L3100.5450 ####[facility] [address] [place], [address] Urea nitrogen [Mass/Vol] 11 mg/dL Normal 7-18 [facility] Comment on above: Performed By: #### L 500.4050, L500.4100, L506.1000, L100.0100, L3100.5450 ####[facility] [address] [place], [address] Internal Medicine Office Vis jamshid 06-29-2024 Internal Medicine Office Visit [facility] [address] [place] [address] [place] [address] OFFICE VISIT Date of Service: 06/29/24 MR#: [id number] Acct: [id number] Name: CARLA ANDERSON Rep #: [id number] : 1970 Provider: NELSON Giraldo Age/Sex: 54/F Location: [facility] Status: Signed Intake Vital Signs 05/25/24 09:33 [...] M FU Chief Complaint: 1 m FU Orthopaedic Technologist Required: No Accompanied by: Self Is patient [...] pain with (more content not included)... Normal [facility] Lipid Profileon 06-29-2024 Cholesterol [Mass/Vol] 240 mg/dL High 200 [facility] [place] Comment on above: Result Comment: <200 mg/dL Desirable 200-240 mg/dL Borderline >240 mg/dL High Risk Performed By: #### L 500.4050, L500.4100, L506.1000, L100.0100, L3100.5450 ####[facility] [id number] [place], [address] Cholesterol in HDL [Mass/Vol] 45 mg/dL Normal [facility] Comment on above: Result Comment: The drugs N-Acetylcysteine and Metamizole may falsely depress this assay. Reference Range HDL <40 mg/dL Low HDL Cholesterol HDL >or= 60 mg/dL High HDL Cholesterol Performed By: #### L 500.4050, L500.4100, L506.1000, L100.0100, L3100.5450 ####[facility] [id number] [place], [address] Cholesterol in LDL [Mass/Vol] 153 mg/dL High 0-130 [facility] Comment on above: Performed By: #### L 500.4050, L500.4100, L506.1000, L100.0100, L3100.5450 ####[facility] [address] [place], [address] Cholesterol in VLDL [Mass/Vol] 42 mg/dL High 5-40 [facility] Comment on above: Performed By: #### L 500.4050, L500.4100, L506.1000, L100.0100, L3100.5450 ####[facility] [address] [facility] [place], [address] Triglyceride [Mass/Vol] 209 mg/dL High [facility] Comment on above: Result Comment: The drugs N-Acetylcysteine and Metamizole may falsely depress this assay. Serum Triglycerides Reference Interval Normal <150 mg/dL Borderline high 150 - 199 mg/dL High 200 - 499 mg/dL Very High > or = 500 mg/dL Performed By: #### L 500.4050, L500.4100, L506.1000, L100.0100, L3100.5450 ####[facility] [id number] [facility], [address] Vitamin D,25 Hydroxyon 06-29 Vitamin D 25-OH 62.7 ng/mL Normal [facility] Comment on above: Result Comment: Alvina min D 25(OH) Status Range Deficiency <20 ng/mL (50nmol/L) Insufficiency 20 - 30 ng/mL (50 - 75 nmol/L) Sufficiency 30 - 100 ng/mL (75 - 250 nmol/L) Toxicity >100 ng/mL (>250 nmol/L) Performed By: #### L 500.4050, L500.4100, L506.1000, L100.0100, L3100.5450 ####[facility] [address] [place], [address] Thyroidon 06-13-2024 Thyroid [facility] [address] [place] [address] Thyroid MR#: [id number] Acct: [id number] Name: CARLA ANDERSON Rep #: [id number] : 1970 F 54 From: Wilberto madrigal MD PCP: Dr. Leah Salvador MD Status: [facility] Study: Thyroid Date of Exam: 06/13/24 Exam# [id number] Ordering Dr: [place] [id number] STUDY: THYROID ULTRASOUND REASON FOR EXAM: Female, [...] EDT , CC: Dr. Leah Salvador MD Addiction Psychiatrist: Signed Normal [facility] Absolute lymphocyte countOrd ered By: Dony Blank on 02-24-2024 Lymphocytes Auto (Unsp spec) [#/Vol] 1.09 10*3/uL 0.83-4.51 [facility] Automated lymphocyte count a s percentage of total leukocytesOrdered By: Dony Blank on 02-24-2024 Lymphocytes/100 WBC Auto (Unsp spec) 16.1 % 19-41 [facility] Basophil percentageOrdered B y: Dony Blank on 02-24-2024 Basophils/100 WBC (Bld) 0.7 % 0-1 [facility] Bilirubin [Mass/Vol] 0.20 mg/dL 0.20-1.00 [facility] Comment on above: For patients on eltr ombopag therapy, use of Dimension [place] TBIL is not recommended. Chloride [Moles/Vol] 103 mmol/L 98-107 [facility] Eosinophils/100 WBC (Bld) 1.6 % 0-5 [facility] Glucose [Mass/Vol] 146 mg/dL 74-106 [facility] Comment on above: Fasting Glucose resu lt greater than or equal to 126 mg/dL suggests DIABETES MELLITUS per A.D.A. criteria. Hemoglobin (Bld) [Mass/Vol] 13.5 g/dL 12.0-15.0 [facility] Monocytes/100 WBC (Bld) 12.1 % 0-10 [facility] Neutrophils (Bld) [#/Vol] 4.7 10*3/uL 2.0-7.7 [facility] Neutrophils/100 WBC (Bld) 69.2 % 47-70 [facility] Potassium [Moles/Vol] 4.0 mmol/L 3.5-5.1 [facility] Protein [Mass/Vol] 7.8 g/dL 6.4-8.2 [facility] Sodium [Moles/Vol] 137 mmol/L 136-145 [facility] WBC (Bld) [#/Vol] 6.8 10*3/uL 4.4-11.0 [facility] Determination of erythrocyte mean corpuscular volume (MCV)Ordered By: Dony Blank on 02-24-2024 MCV (RBC) [Entitic vol] 84.9 fL 81-99 [facility] Erythrocyte distribution wid th ratioOrdered By: Dony Blank on 02-24-2024 Erythrocyte distribution width (RBC) [Ratio] 13.2 % 11.6-14.6 [facility] Erythrocyte distribution wid th standard deviationOrdered By: Dony Blank on 02-24-2024 Erythrocyte distribution width (RBC) [Entitic vol] 41.3 fL 35.1-43.9 [facility] Hematocrit Auto (Bld) [Volum e fraction]Ordered By: Dony Blank on 02-24-2024 Hematocrit (Bld) [Volume fraction] 40.9 % 37-47 [facility] Immature granulocytes/100 WB C Auto (Bld)Ordered By: Dony Blank on 02-24-2024 Immature granulocytes/100 WBC (Bld) 0.300 % 0.0-0.9 [facility] Comment on above: IG% - Immature Granu locytes (promyelocytes, myelocytes and metamyelocytes) > 1% indicates that a LEFT SHIFT is Present. Laboratory - Chemistry and C hemistry - challengeOrdered By: Dony Blank on 02-24-2024 Albumin/Globulin [Mass ratio] 0.8 {ratio} 0.9-2.4 [facility] ALP [Catalytic activity/Vol] 93 U/L 45-117 [facility] ALT [Catalytic activity/Vol] 52 U/L 13-56 [facility] CO2 [Moles/Vol] 28.0 mmol/L 21.0-32.0 [facility] Globulin (S) [Mass/Vol] 4.3 g/dL 2.2-4.2 [facility] Urea nitrogen/Creatinine [Mass ratio] 11.5 mg/mg 10-20 [facility] Laboratory - Hematology and Cell countsOrdered By: Dony Blank on 02-24-2024 MCH (RBC) [Entitic mass] 28.0 pg 27.0-32.0 [facility] MCHC (RBC) [Mass/Vol] 33.0 g/dL 32-36 [facility] Nucleated RBC/100 WBC (Bld) [Ratio] 0 % 0-5 [facility] Platelet mean volume (Bld) [Entitic vol] 12.7 fL 6.2-12.0 [facility] Platelets (Bld) [#/Vol] 219 10*3/uL 150-450 [facility] No Panel InformationOrdered By: Dony Blank on 02-24-2024 Estimated GFR (MDRD) Amer 132 mL/min >60 [facility] Comment on above: GFR Calc Estimated GFR (MDRD) Non-Af Amer 109 mL/min >60 [facility] Comment on above: Non- GFR Calc Troponin I High Sensitivity 4 pg/mL 3.0-54.0 [facility] Comment on above: Please Note: New Amparo t Units and Gender Specific Reference Ranges. For more information see Policy Stat Procedure [place] High Sensitivity Troponin (TNIH) and attachments. RBC Auto (Bld) [#/Vol]Ordere d By: Dony Blank on 02-24-2024 RBC (Bld) [#/Vol] 4.82 10*6/uL 4.2-5.4 [facility] Serum or plasma calcium estefania urement (mass/volume)Ordered By: Dony Blank on 02-24-2024 Calcium [Mass/Vol] 8.8 mg/dL 8.5-10.1 [facility] Serum or plasma creatinine m easurement (mass/volume)Ordered By: Dony Blank on 02-24-2024 Creatinine [Mass/Vol] 0.61 mg/dL 0.55-1.02 [facility] Comment on above: The validity of the calculated GFR & GFRAA in patients over 70 years has not been determined. Clinical correlation is essential. Serum or plasma thyroid stim ulating hormone (TSH) measurement (units/volume)Ordered By: Dony Blank on 02-24-2024 TSH Qn 1.15 uIU/mL 0.358-3.74 [facility] Serum or plasma urea nitroge n measurement (mass/volume)Ordered By: Dony Blank on 02-24-2024 Urea nitrogen [Mass/Vol] 7 mg/dL 7-18 [facility] Thin prep Papanicolaou smear with manual screeningOrdered By: Dony Blank on 02-24-2024 Thin prep Papanicolaou smear with manual screening 3.5 g/dL 3.2-5.0 [facility] Thin prep Papanicolaou smear with manual screening 45 U/L 15-37 [facility] Thin prep Papanicolaou smear with manual screening 6 5-15 [facility] Whole blood hemoglobin A1c/t otal hemoglobin ratio (mass fraction)Ordered By: Leah Salvador on 09-21-2023 HbA1c (Bld) [Mass fraction] 6.2 % 3.8-5.6 [facility] Comment on above: Normal < 5.7 % Predi abetic 5.7 - 6.4 % Diabetic >or= 6.5 % Please note range changes. Basophil percentageOrdered B y: HEALTH ASSESSMENT on 09-03-2023 Cholesterol [Mass/Vol] 254 mg/dL <200 [facility] [place] Comment on above: <200 mg/dL Desirable 200-240 mg/dL Borderline >240 mg/dL High Risk Glucose [Mass/Vol] 138 mg/dL 74-106 [facility] Comment on above: Fasting Glucose resu lt greater than or equal to 126 mg/dL suggests DIABETES MELLITUS per A.D.A. criteria. Triglyceride [Mass/Vol] 254 mg/dL <199 [facility] Comment on above: The drugs N-Acetylcy steine and Metamizole may falsely depress this assay.Serum Triglycerides Reference Interval Normal <150 mg/dL Borderline high 150 - 199 mg/dL High 200 - 499 mg/dL Very High > or = 500 mg/dL Serum or plasma cholesterol in HDL measurement (mass/volume)Ordered By: HEALTH ASSESSMENT on 09-03-2023 Cholesterol in HDL [Mass/Vol] 49 mg/dL >40 [facility] Comment on above: The drugs N-Acetylcy steine and Metamizole may falsely depress this assay. Reference Range HDL <40 mg/dL Low HDL Cholesterol HDL >or= 60 mg/dL High HDL Cholesterol Serum or plasma cholesterol in VLDL measurement (mass/volume)Ordered By: HEALTH ASSESSMENT on 09-03-2023 Cholesterol in VLDL [Mass/Vol] 51 mg/dL 5-40 [facility] Serum or plasma low density lipoprotein (LDL) cholesterol measurement (mass/volume)Ordered By: HEALTH ASSESSMENT on 09-03-2023 Cholesterol in LDL [Mass/Vol] 154 mg/dL 0-130 [facility] Culture, urineOrdered By: Honorio Salvador on 08-07-2023 Bacteria identified Cx Nom (U) Positive [facility] Absolute lymphocyte countOrd ered By: Leah Salvador on 08-03-2023 Lymphocytes Auto (Unsp spec) [#/Vol] 2.69 10*3/uL 0.83-4.51 [facility] Basophil percentageOrdered B y: Leah Salvador on 08-03-2023 Basophil percentage 10-25 SEEN /hpf 0-5 [facility] Basophils/100 WBC (Bld) 0.8 % 0-1 [facility] Bilirubin [Mass/Vol] 0.30 mg/dL 0.20-1.00 [facility] Comment on above: For patients on eltr ombopag therapy, use of Dimension [place] TBIL is not recommended. Chloride [Moles/Vol] 104 mmol/L 98-107 [facility] Cholesterol [Mass/Vol] 263 mg/dL <200 [facility] [place] Comment on above: <200 mg/dL Desirable 200-240 mg/dL Borderline >240 mg/dL High Risk Eosinophils/100 WBC (Bld) 2.2 % 0-5 [facility] Glucose [Mass/Vol] 93 mg/dL 74-106 [facility] Neutrophils (Bld) [#/Vol] 3.9 10*3/uL 2.0-7.7 [facility] Neutrophils/100 WBC (Bld) 52.6 % 47-70 [facility] Potassium [Moles/Vol] 3.9 mmol/L 3.5-5.1 [facility] Protein [Mass/Vol] 8.3 g/dL 6.4-8.2 [facility] Sodium [Moles/Vol] 137 mmol/L 136-145 [facility] Triglyceride [Mass/Vol] 283 mg/dL <199 [facility] Comment on above: The drugs N-Acetylcy steine and Metamizole may falsely depress this assay.Serum Triglycerides Reference Interval Normal <150 mg/dL Borderline high 150 - 199 mg/dL High 200 - 499 mg/dL Very High > or = 500 mg/dL WBC (Bld) [#/Vol] 7.3 10*3/uL 4.4-11.0 [facility] Bilirubin Test strip Ql (U)O rdered By: Leah Salvador on 08-03-2023 Bilirubin Ql (U) Negative Negative [facility] Blood erythrocytes count (nu mber/volume)Ordered By: Leah Salvador on 08-03-2023 RBC (Bld) [#/Vol] 4.72 10*6/uL 4.2-5.4 [facility] Blood hemoglobin measurement (mass/volume)Ordered By: Leah Salvador on 08-03-2023 Hemoglobin (Bld) [Mass/Vol] 13.4 g/dL 12.0-15.0 [facility] Blood lymphocytes/100 leukoc ytesOrdered By: Leah Salvador on 08-03-2023 Lymphocytes/100 WBC (Bld) 36.7 % 19-41 [facility] Blood monocytes/100 leukocyt esOrdered By: Leah Salvador on 08-03-2023 Monocytes/100 WBC (Bld) 7.2 % 0-10 [facility] Blood platelet mean volumeOr dered By: Leah Salvador on 08-03-2023 Platelet mean volume (Bld) [Entitic vol] 12.1 fL 6.2-12.0 [facility] Determination of erythrocyte mean corpuscular volume (MCV)Ordered By: Leah Salvador on 08-03-2023 MCV (RBC) [Entitic vol] 87.1 fL 81-99 [facility] Hematocrit Auto (Bld) [Volum e fraction]Ordered By: Leah Salvador on 08-03-2023 Hematocrit (Bld) [Volume fraction] 41.1 % 37-47 [facility] Ketones Test strip Ql (U)Ord ered By: Leah Salvador on 08-03-2023 Ketones Ql (U) Negative Negative [facility] Laboratory - Chemistry and C hemistry - challengeOrdered By: Leah Salvador on 08-03-2023 ALP [Catalytic activity/Vol] 88 U/L 45-117 [facility] ALT [Catalytic activity/Vol] 22 U/L 13-56 [facility] CO2 [Moles/Vol] 26.0 mmol/L 21.0-32.0 [facility] Globulin (S) [Mass/Vol] 4.6 g/dL 2.2-4.2 [facility] Urea nitrogen/Creatinine [Mass ratio] 13.1 mg/mg 10-20 [facility] Laboratory - Hematology and Cell countsOrdered By: Leah Salvador on 08-03-2023 Erythrocyte distribution width (RBC) [Entitic vol] 41.4 fL 35.1-43.9 [facility] Erythrocyte distribution width (RBC) [Ratio] 13.0 % 11.6-14.6 [facility] Immature granulocytes/100 WBC (Bld) 0.500 % 0.0-0.9 [facility] Comment on above: IG% - Immature Granu locytes (promyelocytes, myelocytes and metamyelocytes) > 1% indicates that a LEFT SHIFT is Present. MCH (RBC) [Entitic mass] 28.4 pg 27.0-32.0 [facility] Nucleated RBC/100 WBC (Bld) [Ratio] 0 % 0-5 [facility] MCHC Auto (RBC) [Mass/Vol]Or dered By: Leah Salvador on 08-03-2023 MCHC (RBC) [Mass/Vol] 32.6 g/dL 32-36 [facility] Mucus LM Ql (Urine sed)Order ed By: Leah Salvador on 08-03-2023 Mucus Ql (Urine sed) 0 SEEN /hpf [facility] Nitrite Test strip Ql (U)Ord ered By: Leah Salvador on 08-03-2023 Nitrite Ql (U) Negative Negative [facility] No Panel InformationOrdered By: Leah Salvador on 08-03-2023 Estimated GFR (MDRD) Amer 102 mL/min >60 [facility] Comment on above: GFR Calc Estimated GFR (MDRD) Non-Af Amer 84 mL/min >60 [facility] Comment on above: Non- GFR Calc Thyroid Stimulating Hormone (TSH) 1.78 uIU/mL 0.358-3.74 [facility] Vitamin D 25-Hydroxy 20.6 ng/mL [facility] Comment on above: Vitamin D 25(OH) Sta tus Range Deficiency <20 ng/mL (50nmol/L) Insufficiency 20 - 30 ng/mL (50 - 75 nmol/L) Sufficiency 30 - 100 ng/mL (75 - 250 nmol/L) Toxicity >100 ng/mL (>250 nmol/L) Platelets bldOrdered By: David Salvador on 08-03-2023 Platelets (Bld) [#/Vol] 263 10*3/uL 150-450 [facility] Protein Test strip Ql (U)Ord ered By: Leah Salvador on 08-03-2023 Protein Ql (U) Negative Negative [facility] Serum or plasma albumin estefania urement (mass/volume)Ordered By: Leah Salvador on 08-03-2023 Albumin [Mass/Vol] 3.7 g/dL 3.2-5.0 [facility] Serum or plasma albumin/glob ulin mass ratioOrdered By: Leah Salvador on 08-03-2023 Albumin/Globulin [Mass ratio] 0.8 {ratio} 0.9-2.4 [facility] Serum or plasma calcium estefania urement (mass/volume)Ordered By: Leah Salvador on 08-03-2023 Calcium [Mass/Vol] 9.3 mg/dL 8.5-10.1 [facility] Serum or plasma cholesterol in HDL measurement (mass/volume)Ordered By: Leah Salvador on 08-03-2023 Cholesterol in HDL [Mass/Vol] 46 mg/dL >40 [facility] Comment on above: The drugs N-Acetylcy steine and Metamizole may falsely depress this assay. Reference Range HDL <40 mg/dL Low HDL Cholesterol HDL >or= 60 mg/dL High HDL Cholesterol Serum or plasma cholesterol in VLDL measurement (mass/volume)Ordered By: Leah Salvador on 08-03-2023 Cholesterol in VLDL [Mass/Vol] 57 mg/dL 5-40 [facility] Serum or plasma creatinine m easurement (mass/volume)Ordered By: Leah Salvador on 08-03-2023 Creatinine [Mass/Vol] 0.76 mg/dL 0.55-1.02 [facility] Comment on above: The validity of the calculated GFR & GFRAA in patients over 70 years has not been determined. Clinical correlation is essential. Serum or plasma low density lipoprotein (LDL) cholesterol measurement (mass/volume)Ordered By: Leah Salvador on 08-03-2023 Cholesterol in LDL [Mass/Vol] 160 mg/dL 0-130 [facility] Serum or plasma urea nitroge n measurement (mass/volume)Ordered By: Leah Salvador on 08-03-2023 Urea nitrogen [Mass/Vol] 10 mg/dL 7-18 [facility] Squamous epithelial cells de tection in urine sediment by light microscopyOrdered By: Leah Salvador on 08-03-2023 Epithelial cells.squamous LM Ql (Urine sed) 0-5 SEEN /hpf 5-10 [facility] Thin prep Papanicolaou smear with manual screeningOrdered By: Leah Salvador on 08-03-2023 Thin prep Papanicolaou smear with manual screening 13 U/L 15-37 [facility] Thin prep Papanicolaou smear with manual screening 7 5-15 [facility] Urine blood detectionOrdered By: Leah Salvador on 08-03-2023 RBC Ql (U) Negative Negative [facility] RBC Ql (U) 0 SEEN /hpf 0-5 [facility] Urine clarityOrdered By: David Salvador on 08-03-2023 Clarity (U) Clear Clear [facility] Urine color determinationOrd ered By: Leah Salvador on 08-03-2023 Color (U) Yellow Yellow [facility] Urine glucose detectionOrder ed By: Leah Salvador on 08-03-2023 Glucose Ql (U) Normal mg/dl Normal [facility] Urine leukocyte esterase det ection by dipstickOrdered By: Leah Salvador on 08-03-2023 Leukocyte esterase Test strip Ql (U) 100 /ul Negative [facility] Urine pHOrdered By: Leah ramirez on 08-03-2023 pH (U) 6.0 [pH] 5.0 - 8.0 [facility] Urine sediment bacteria coun t by microscopy (number/high power field)Ordered By: Leah Salvador on 08-03-2023 Bacteria LM.HPF (Urine sed) [#/Area] 0 /[HPF] None Seen [facility] Urine specific gravity measu rementOrdered By: Leah Salvador on 08-03-2023 Specific gravity (U) [Rel density] 1.020 1.002-1.030 [facility] Urobilinogen Auto test strip Ql (U)Ordered By: Leah Salvador on 08-03-2023 Urobilinogen Ql (U) Normal mg/dl Normal [facility] Basophil percentageon 2021 Chloride [Moles/Vol] 104 mmol/L 98-107 [facility] Work Phone: Glucose [Mass/Vol] 103 mg/dL 74-106 [facility] Work Phone: Comment on above: Fasting Glucose resu lt from 100 to 125 mg/dL suggests IMPAIRED HOMEOSTASIS per A.D.A. criteria. Potassium [Moles/Vol] 3.9 mmol/L 3.5-5.1 [facility] Work Phone: Sodium [Moles/Vol] 140 mmol/L 136-145 [facility] Work Phone: Laboratory - Chemistry and C hemistry - challengeon 10-14-2022 CO2 [Moles/Vol] 31.0 mmol/L 21.0-32.0 [facility] Work Phone: Urea nitrogen/Creatinine [Mass ratio] 20.3 mg/mg 10-20 [facility] Work Phone: No Panel Informationon 10-14 Estimated GFR (MDRD) Amer 125 mL/min >60 [facility] Work Phone: Comment on above: GFR Calc Estimated GFR (MDRD) Non-Af Amer 103 mL/min >60 [facility] Work Phone: Comment on above: Non- GFR Calc Troponin I High Sensitivity 6 pg/mL 3.0-54.0 [facility] Work Phone: Comment on above: Please Note: New Amparo t Units and Gender Specific Reference Ranges. For more information see Policy Stat Procedure [place] High Sensitivity Troponin (TNIH) and attachments. Serum or plasma calcium estefania urement (mass/volume)on 10-14-2022 Calcium [Mass/Vol] 9.2 mg/dL 8.5-10.1 [facility] Work Phone: Serum or plasma creatinine m easurement (mass/volume)on 10-14-2022 Creatinine [Mass/Vol] 0.64 mg/dL 0.55-1.02 [facility] Work Phone: Comment on above: The validity of the calculated GFR & GFRAA in patients over 70 years has not been determined. Clinical correlation is essential. Serum or plasma urea nitroge n measurement (mass/volume)on 10-14-2022 Urea nitrogen [Mass/Vol] 13 mg/dL 7-18 [facility] Work Phone: Thin prep Papanicolaou smear with manual screeningon 10-14-2022 Thin prep Papanicolaou smear with manual screening 5 5-15 [facility] Work Phone: Absolute lymphocyte counton 09-01-2022 Lymphocytes Auto (Unsp spec) [#/Vol] 2.26 10*3/uL 0.83-4.51 [facility] Work Phone: Basophil percentageon 2021 Basophils/100 WBC (Bld) 0.9 % 0-1 [facility] Work Phone: Bilirubin [Mass/Vol] 0.30 mg/dL 0.20-1.00 [facility] Work Phone: Comment on above: For patients on eltr ombopag therapy, use of Dimension [place] TBIL is not recommended. Chloride [Moles/Vol] 105 mmol/L 98-107 [facility] Work Phone: Cholesterol [Mass/Vol] 194 mg/dL <200 [facility] Work Phone: Comment on above: <200 mg/dL Desirable 200-240 mg/dL Borderline >240 mg/dL High Risk Eosinophils/100 WBC (Bld) 2.6 % 0-5 [facility] Work Phone: Glucose [Mass/Vol] 95 mg/dL 74-106 [facility] Work Phone: Neutrophils (Bld) [#/Vol] 3.3 10*3/uL 2.0-7.7 [facility] Work Phone: Neutrophils/100 WBC (Bld) 51.8 % 47-70 [facility] Work Phone: Potassium [Moles/Vol] 4.4 mmol/L 3.5-5.1 [facility] Work Phone: Protein [Mass/Vol] 7.6 g/dL 6.4-8.2 [facility] Work Phone: [phone] Sodium [Moles/Vol] 139 mmol/L 136-145 [facility] Work Phone: [phone] Triglyceride [Mass/Vol] 189 mg/dL <199 [facility] Work Phone: [phone] Comment on above: The drugs N-Acetylcy steine and Metamizole may falsely depress this assay.Serum Triglycerides Reference Interval Normal <150 mg/dL Borderline high 150 - 199 mg/dL High 200 - 499 mg/dL Very High > or = 500 mg/dL WBC (Bld) [#/Vol] 6.4 10*3/uL 4.4-11.0 [facility] Work Phone: [phone] Blood erythrocytes count (nu mber/volume)on 09-01-2022 RBC (Bld) [#/Vol] 4.49 10*6/uL 4.2-5.4 [facility] Work Phone: [phone] Blood hemoglobin measurement (mass/volume)on 09-01-2022 Hemoglobin (Bld) [Mass/Vol] 12.6 g/dL 12.0-15.0 [facility] Work Phone: Blood lymphocytes/100 leukoc yteson 09-01-2022 Lymphocytes/100 WBC (Bld) 35.2 % 19-41 [facility] Work Phone: [phone] Blood monocytes/100 leukocyt eson 09-01-2022 Monocytes/100 WBC (Bld) 9.2 % 0-10 [facility] Work Phone: Blood platelet mean volumeon 09-01-2022 Platelet mean volume (Bld) [Entitic vol] 13.4 fL 6.2-12.0 [facility] Work Phone: [phone] Determination of erythrocyte mean corpuscular volume (MCV)on 09-01-2022 MCV (RBC) [Entitic vol] 87.8 fL 81-99 [facility] Work Phone: [phone] Hematocrit Auto (Bld) [Volum e fraction]on 09-01-2022 Hematocrit (Bld) [Volume fraction] 39.4 % 37-47 [facility] Work Phone: [phone] Laboratory - Chemistry and C hemistry - challengeon 09-01-2022 ALP [Catalytic activity/Vol] 62 U/L 45-117 [facility] Work Phone: [phone] ALT [Catalytic activity/Vol] 22 U/L 13-56 [facility] Work Phone: [phone] CO2 [Moles/Vol] 28.0 mmol/L 21.0-32.0 [facility] Work Phone: [phone] Globulin (S) [Mass/Vol] 4.2 g/dL 2.2-4.2 [facility] Work Phone: [phone] Urea nitrogen/Creatinine [Mass ratio] 11.9 mg/mg 10-20 [facility] Work Phone: [phone] Laboratory - Hematology and Cell countson 09-01-2022 Erythrocyte distribution width (RBC) [Entitic vol] 49.0 fL 35.1-43.9 [facility] Work Phone: [phone] Erythrocyte distribution width (RBC) [Ratio] 15.4 % 11.6-14.6 [facility] Work Phone: [phone] Immature granulocytes/100 WBC (Bld) 0.300 % 0.0-0.9 [facility] Work Phone: [phone] Comment on above: IG% - Immature Granu locytes (promyelocytes, myelocytes and metamyelocytes) > 1% indicates that a LEFT SHIFT is Present. MCH (RBC) [Entitic mass] 28.1 pg 27.0-32.0 [facility] Work Phone: [phone] Nucleated RBC/100 WBC (Bld) [Ratio] 0 % 0-5 [facility] Work Phone: [phone] MCHC Auto (RBC) [Mass/Vol]on 09-01-2022 MCHC (RBC) [Mass/Vol] 32.0 g/dL 32-36 [facility] Work Phone: [phone] No Panel Informationon 09-01 Estimated GFR (MDRD) Amer 118 mL/min >60 [facility] Work Phone: Comment on above: GFR Calc Estimated GFR (MDRD) Non-Af Amer 97 mL/min >60 [facility] Work Phone: Comment on above: Non- GFR Calc Vitamin D 25-Hydroxy 21.4 ng/mL [facility] Work Phone: Comment on above: Vitamin D 25(OH) Sta tus Range Deficiency <20 ng/mL (50nmol/L) Insufficiency 20 - 30 ng/mL (50 - 75 nmol/L) Sufficiency 30 - 100 ng/mL (75 - 250 nmol/L) Toxicity >100 ng/mL (>250 nmol/L) Platelets bldon 09-01-2022 Platelets (Bld) [#/Vol] 219 10*3/uL 150-450 [facility] Work Phone: Serum or plasma albumin estefania urement (mass/volume)on 09-01-2022 Albumin [Mass/Vol] 3.4 g/dL 3.2-5.0 [facility] Work Phone: Serum or plasma albumin/glob ulin mass ratioon 09-01-2022 Albumin/Globulin [Mass ratio] 0.8 {ratio} 0.9-2.4 [facility] Work Phone: Serum or plasma calcium estefania urement (mass/volume)on 09-01-2022 Calcium [Mass/Vol] 9.1 mg/dL 8.5-10.1 [facility] Work Phone: Serum or plasma cholesterol in HDL measurement (mass/volume)on 09-01-2022 Cholesterol in HDL [Mass/Vol] 49 mg/dL >40 [facility] Work Phone: Comment on above: The drugs N-Acetylcy steine and Metamizole may falsely depress this assay. Reference Range HDL <40 mg/dL Low HDL Cholesterol HDL >or= 60 mg/dL High HDL Cholesterol Serum or plasma cholesterol in VLDL measurement (mass/volume)on 10-10-2022 Cholesterol in VLDL [Mass/Vol] 38 mg/dL 5-40 [facility] Work Phone: Serum or plasma creatinine m easurement (mass/volume)on 09-01-2022 Creatinine [Mass/Vol] 0.68 mg/dL 0.55-1.02 [facility] Work Phone: Comment on above: The validity of the calculated GFR & GFRAA in patients over 70 years has not been determined. Clinical correlation is essential. Serum or plasma low density lipoprotein (LDL) cholesterol measurement (mass/volume)on 09-01-2022 Cholesterol in LDL [Mass/Vol] 107 mg/dL 0-130 [facility] Work Phone: Serum or plasma urea nitroge n measurement (mass/volume)on 09-01-2022 Urea nitrogen [Mass/Vol] 8 mg/dL 7-18 [facility] Work Phone: Thin prep Papanicolaou smear with manual screeningon 09-01-2022 Thin prep Papanicolaou smear with manual screening 15 U/L 15-37 [facility] Work Phone: Thin prep Papanicolaou smear with manual screening 6 5-15 [facility] Work Phone: Cervical or vagninal specime n microscopic examination by cytology stain (reported ason 04-01-2022 Cytology report Cyto stain Doc (Cvx/Vag) Comment [facility] Work Phone: Comment on above: The Pap smear is a s creening test designed to aid in thedetection of premalignant and malignant conditions of theuterine cervix. It is not a diagnostic procedure andshould not be used as the sole means of detecting cervicalcancer. Both false-positive and false-negative reports dooccur. Laboratory - Cytologyon 03-23 Handle Lathe Operator Cyto stain Nom (Cvx/Vag) [ID] Comment [facility] Work Phone: Comment on above: Aiden Solo ytotechnologist (ASCP) Laboratory - Miscellaneous t estson 04-01-2022 Service comment (Unsp spec) [Interp] Comment [facility] Work Phone: Comment on above: This liquid based Th inPrep(R) pap test was screened withthe use of an image guided system. Service comment (Unsp spec) [Interp] . [facility] Work Phone: No Panel Informationon 04-01 Human Papillomavirus Screen Comment [facility] Work Phone: Comment on above: The HPV DNA reflex c jenna were not met with this specimenresult therefore, no HPV testing was performed.Performed at: [address] [id number] Director: Georgiana Lindsay MD, Phone: [phone] Pathology report final diagnosis Narrative Comment [facility] Work Phone: Comment on above: NEGATIVE FOR INTRAEP ITHELIAL LESION OR MALIGNANCY. PROGRESSon 11-22-2019 PROGRESS HNO ID: [id number] Author: Nicole Marquez Service: ? Author Type: Cinnamon Grinder Type: Progress Notes Filed: 11/22/2019 12:39 PM Note Text: [facility] BUSINESS SERVICES SALES REPRESENTATIVE QUICKNOTE Provider Action/FYI: MyChart message read. Patient aware she's due for an appointment and Hm. Patient identified by name and . Nicole Marquez CMA [facility] CNPTOUTREACHoradha 11-18-2019 [facility] Patient Outreach (INTMWS) CARLA ANDERSON ([id number]) 1970 F Date Time Provider Department 11/18/19 NICOLE MARQUEZ) ERIKAMWS During your visit today, we recorded the following information about you: Nicole Marquez CMA 11/22/2019 12:39 PM Signed PHMA CARE GAP REGISTRY DOCUMENTATION (OUTSIDE TEAMLET) Provider Action/FYI: PSR Action/FYI: - r/s 6 month follow up (can 06/20) Health Maintenance Due: DTAP,TDAP,TD(1 - Tdap) due [...] office visit: r/s 6 month follow up APRIL Scherer [facility] 11/22/2019 12:39 PM Signed [facility] BUSINESS SERVICES SALES REPRESENTATIVE SANDY Provider Action/FYI: 1st attempt - Btiquest message sent. Patient identified by name and . APRIL Scherer [facility] 11/22/2019 12:39 PM Signed [facility] BUSINESS SERVICES SALES REPRESENTATIVE SANDY Provider Action/FYI: Storybirdhart message read. Patient aware she's due for an appointment and . Patient identified by name and . Nicole Marquez [facility] Allergies As of Date: 11/18/2019 (No Known Allergies) Date Reviewed: 03/25/2019 Reviewed by: Rylie Galicia (Yasmine) YASMINE Salas - Fully Assessed Reason for Visit: PHAR/Care Gap Outreach [4047] Prescriptions as of 11/18/2019 Sig: ESCITALOPRAM 5 [...] (right) [R92.8] 03/08/2013 Encounter Status:Closed by NICOLE MARQUEZ CMA on 11/22/19 [facility] PROGRESSon 11-18-2019 PROGRESS HNO ID: [id number] Author: Nicole Marquez Service: ? Author Type: Cinnamon Grinder Type: Progress Notes Filed: 11/22/2019 12:39 PM Note Text: [facility] BUSINESS SERVICES SALES REPRESENTATIVE QUICKNOTE Provider Action/FYI: 1st attempt - zkipster message sent. Patient identified by name and . Nicole Marquez CMA [facility] PROGRESS HNO ID: [id number] Author: Nicole Marquez Service: ? Author Type: Cinnamon Grinder Type: Progress Notes Filed: 11/22/2019 12:39 PM Note Text: PHMA CARE GAP REGISTRY DOCUMENTATION (OUTSIDE TEAMLET) [...] visit: r/s 6 month follow up Nicole Marquez CMA [facility] CNCOon 04-27-2019 CNCO Letter Text [facility] CNOVon 03-25-2019 CNOV Office Visit (FAMPWS ) CARLA ANDERSON ([id number]) 1970 F Date Time Provider Department 03/25/19 9:00 AM [facility] During your visit today, we recorded the following information about you: Pulse Respiration Blood pressure Weight 64/minute 18/minute 104/68 71.8 kg Jaja Chau APRN.CNP 03/25/2019 1:03 PM Signed 03/25/2019 Patient presents [...] non-medical: Not on file 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 Patient advised if symptoms do not improve or if symptoms worsen sooner, to contact their primary care physician. Potential red flag symptoms discussed with the patient. Reviewed appropriate action plan to take if red flag symptoms occur. Patient agreeable to treatment plan. Jaja Chau APRN.CALCULUS TUTOR 03/25/2019 9:09 AM Signed Ice or heat [...] Visit Diagnosis:Right arm pain [M79.601] Order(s):SLING, ARM [[id number]] Order #: [id number] XR WRIST GENERAL 3V PA/LAT/OBL RT [[id number]] Order #: [id number] FUTURE XR HUMERUS 2V AP/LAT RT [[id number]] Order #: [id number] FUTURE XR ELBOW SPECIAL VIEWS AP/LAT/OTHER RT [[id number]] Order #: [id number] FUTURE XR SHOULDER [id number] AP/TRUE AP RT [[id number]] Order #: [id number] FUTURE XR FOREARM GENERAL 2V AP/LAT RT [[id number]] Order #: [id number] FUTURE XR SHOULDER GENERAL 3V OR MORE AP/TRUE AP/OTHER RT [[id number]] Order #: [id number] FUTURE Prescriptions as of 03/25/2019 Sig: ESCITALOPRAM [...] Status:Closed by PODLOGARJAJA CNP on 03/25/19 Normal [facility] PROGRESSon 03-25-2019 PROGRESS HNO ID: [id number] Author: Jaja Christine) Podlogar Service: ? 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 Patient advised if symptoms do not improve or if symptoms worsen sooner, to contact their primary care physician. Potential red flag symptoms discussed with the patient. Reviewed appropriate action plan to take if red flag symptoms occur. Patient agreeable to treatment plan. Normal [facility] XR FOREARM 2V AP/LAT RTon XR [...] area of pain 2. Study otherwise unremarkable Addiction Psychiatrist: PSCB Transcribe Date/Time: Mar 25 2019 10:09A Dictated by : GEORGIA ULRICH DO This examination was interpreted and the report reviewed and electronically signed by: GEORGIA ULRICH DO on Mar 25 2019 10:36AM EST [id number] Normal [facility] XR HUMERUS 2V AP/LAT RTon XR [...] area of pain 2. Study otherwise unremarkable Addiction Psychiatrist: LESA Transcribe Date/Time: Mar 25 2019 10:09A Dictated by : GEORGIA ULRICH DO This examination was interpreted and the report reviewed and electronically signed by: GEORGIA ULRICH DO on Mar 25 2019 10:36AM EST [id number] Normal [facility] XR SHLDR >/=3V AP/NEYDA AP/OTH R [...] area of pain 2. Study otherwise unremarkable Addiction [facility] Transcribe Date/Time: Mar 25 2019 10:09A Dictated by : GEORGIA ULRICH DO This examination was interpreted and the report reviewed and electronically signed by: GEORGIA ULIRCH DO on Mar 25 2019 10:36AM EST [id number] Normal [facility] PROGRESSon 01-11-2019 PROGRESS HNO ID: [id number] Author: Omid Dunlap Service: (none) Author Type: Psychologist Type: Progress Notes Filed: 01/11/2019 6:42 PM Note Text: [facility] Progress Note Carla Wolfe Josie 01/11/2019 [id number] Provider: Omid Dunlap, PHD CPT Code: 20321 Psychiatric diagnostic evaluation Time: Approximately 50 minutes was spent in therapy. Parties Present: Patient Patient Presentation/Concerns: INITIAL VISIT Pt grew up as 4th of 5 in [place] .. father was manager union... 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 19 and 24 yo boys and 20 and 21 yo girls Anxiety... always a bit fearful.... ie of being alone but recent 2 yrs FEAR OF DRIVING AND FEAR OF SPIDERS ARE QUITE PROBLEMATIC Driving ... fear accident and hurt someone or cause an accident didnt drive til in college and works in [employer] and can drive her to work etc. [...] Psychiatric Medication Issues: see med record DIAGNOSIS: Maynard I: Anxiety Phobia... driving and spiders Maynard II: deferred Maynard III: see med record Maynard IV: phobias Maynard V: 53 Treatment Modality/Interventions: Cognitive Behavioral Reassurance/Supportive Problem solving Psychoeducation TREATMENT ASSESSMENT/PROGRESS: . Progressing satisfactorily. TREATMENT PLAN/GOALS: Continue in therapy focusing on self-care, stress management, affect management and anxiety management. Next appointment: as scheduled [facility] (INTMWS ) CARLA ANDERSON ([id number]) 1970 F Date Time Provider Department 12/16/18 4:00 PM ANTONIO MONTILLA INTMWS During your visit today, we recorded the following information about you: Temperature Pulse Respiration Blood pressure 97.9 degrees 68/minute 16/minute 130/84 Weight 84.4 kg Antonio Montilla MD 12/16/2018 4:49 PM Signed This note was created using NoteWriter. Subjective Carlatriny Anderson was here for follow up of depression and anxiety. She was doing much better and phobias, mood swings, and motivation were so much better. She still had increased sleep. She was planning to reengage with temple, and was thinking of starting a hobby. [...] minutes was spent, all for discussion. Antonio Montilla MD Referring Provider: ANTONIO MONTILLA [[id number]] Allergies As of Date: 12/16/2018 (No Known [...] Disposition History Recorded Encounter Status:Closed by ANTONIO MONTILLA MD on 12/16/18 [facility] PRO[facility]ESS[facility] 12-16-2018 PROGRESS HNO ID: [id number] Author: Antonio Montilla Service: (none) Author Type: Physician Type: Progress Notes Filed: 12/16/2018 4:49 PM Note Text: This note was created using Keep Holdingsriter. Subjective Carla Anderosn was here for follow up of depression and anxiety. She was doing much better and phobias, mood swings, and motivation were so much better. She still had increased sleep. She was planning to reengage with temple, and was thinking of starting a hobby. [...] Her behavior is normal. Thought content normal. PHQ-2 Score: 1 PHQ-9 Score: 1 Generalized [...] minutes was spent, all for discussion. Antonio Montilla MD Normal [facility] Basic Metabolic Panlon 12-09 Anion gap [Moles/Vol] 7 mmol/L Normal [facility] Calcium [Mass/Vol] 9.7 mg/dL Normal 8.5-10.2 [facility] Chloride [Moles/Vol] 103 mmol/L Normal 97-105 [facility] CO2 [Moles/Vol] 27 mmol/L Normal 22-30 [facility] Creatinine [Mass/Vol] 0.64 mg/dL Normal 0.58-0.96 [facility] eGFR- Amer. >60 Normal [facility] GFR/1.73 sq M predicted among non-blacks MDRD (S/P/Bld) [Vol rate/Area] mL/min/{1.73_m2} Normal [facility] Comment on above: Result Comment: eGFR [...] GFR. Glucose [Mass/Vol] 95 mg/dL Normal 74-99 [facility] Potassium [Moles/Vol] 4.4 mmol/L Normal 3.7-5.1 [facility] Sodium [Moles/Vol] 137 mmol/L Normal 136-144 [facility] Urea nitrogen [Mass/Vol] 9 mg/dL Normal 7-21 [facility] Lipid Panel, [place] 019 Cholesterol [Mass/Vol] 192 mg/dL Normal <200 [facility] Comment on above: Result Comment: <200 mg/dL, Desirable 200-239 mg/dL, Borderline high >239 mg/dL, High Performed By: #### L IPB #### [facility] [employer] [address] [place], [place] [address] Cholesterol in HDL [Mass/Vol] 48 mg/dL Normal >39 [facility] Comment on above: Result Comment: 40-5 9 mg/dL, Acceptable >59 mg/dL, High: Negative risk factor for coronary heart disease <40 mg/dL, Low: Positive risk factor for coronary heart disease Performed By: #### L IPB #### [facility] [address] [place], [place] [address] Cholesterol in LDL [Mass/Vol] 129 mg/dL High <100 [facility] Comment on above: Result Comment: <100 mg/dL, Optimal 100-129 mg/dL, Near optimal/above optimal 130-159 mg/dL, Borderline high 160-189 mg/dL, High >189 mg/dL, Very high Secondary prevention optimal LDL Cholesterol levels are recommended to be < 70 mg/dL Performed By: #### L IPB #### [place] [address] [place] [phone] Fasting Time 12 hrs Normal [facility] Comment on above: Performed By: #### L IPB #### [place] [address] [place] [phone] LDL:HDL Ratio 2.69 High <2.54 [facility] Comment on above: Result Comment: Refe rence: 1. National Cholesterol Education Program ATP III Guideline At-A-Glance Quick Desk Reference: National Heart, Lung, and Blood [place]. National Institutes of Health. 2001: NIH Publication No. 01-3305. 2. An International Atherosclerosis Society position paper: global recommendations for the management of dyslipidemia: executive summary, Atherosclerosis. 2014: 232(2):410-413. Performed By: #### L IPB #### [phone] Non HDL Cholesterol 144 mg/dL High <130 [facility] Comment on above: Result Comment: <130 mg/dL, Optimal 130-159 mg/dL, Near optimal/above optimal 160-189 mg/dL, Borderline high 190-219 mg/dL, High >219 mg/dL, Very high Secondary prevention optimal non HDL Cholesterol levels are recommended to be < 100 mg/dL Performed By: #### L IPB #### [place] [address] [place] [phone] TC:HDL Ratio 4.00 Normal <5.10 [facility] Comment on above: Performed By: #### L IPB #### [place] [address] [place] [phone] Triglyceride [Mass/Vol] 76 mg/dL Normal <150 [facility] Comment on above: Result Comment: <150 mg/dL, Normal 150-199 mg/dL, Borderline high 200-499 mg/dL, High >499 mg/dL, Very high Performed By: #### L IPB #### [facility] [address] [place], [place] [address] VLDL Cholesterol 15 mg/dL Normal <30 [facility] Comment on above: Performed By: #### L IPB #### [facility] [address] [place], [place] [address] CNPTOUTREACHoradha 11-30-2018 [facility] (FAMPST) CARLA ANDERSON ([id number]) 1970 F Date Time Provider Department 11/30/18 [facility] During your visit today, we recorded the following information about you: Allergies As of Date: 11/30/2018 (No Known Allergies) Date Reviewed: 11/10/2018 Reviewed by: Sara Dick LPN - Fully Assessed Visit Diagnosis:Medication management [Z79.899] Order(s):BASIC METABOLIC PNL [SQBMP] Order #: [id number] FUTURE LIPID PANEL BASIC [SQLIPB] Order #: [id number] FUTURE Prescriptions as of 11/30/2018 Sig: ESCITALOPRAM [...] Status:Closed by EPIC, PRODUSER on 12/15/18 Normal [facility] Vital Signs Date Time Vital Sign Value Performing Clinician Annalee rooney 05-29-2025 14:42-0400 Body temperature 98.3 [degF] Dr. Leah Salvador MD Work Phone: [facility] 05-29-2025 14:42-0400 Diastolic blood pressure 55 mm[Hg] Dr. Leah Salvador MD Work Phone: [facility] 05-29-2025 14:42-0400 Heart rate 63 /min Dr. Leah Salvador MD Work Phone: [facility] 05-29-2025 14:42-0400 Respiratory rate 16 /min Dr. Leah Salvador MD Work Phone: [facility] 05-29-2025 14:42-0400 SaO2% (BldA) [Mass fraction] 98 % Dr. Leah Salvador MD Work Phone: [facility] 05-29-2025 14:42-0400 Systolic blood pressure 134 mm[Hg] Dr. Leah Salvador MD Work Phone: [facility] 05-29-2025 12:45-0400 Inhaled oxygen flow rate 2 L/min Dr. Leah Salvador MD Work Phone: [facility] 05-29-2025 08:07-0400 Body height 170.[address] Leah Salvador MD Work Phone: [facility] 05-29-2025 08:07-0400 Body mass index (BMI) [Ratio] 35.5 kg/m2 Dr. Leah Salvador MD Work Phone: [facility] 05-29-2025 08:07-0400 Body weight 102.[address] Leah Salvador MD Work Phone: [facility] 05-23-2025 13:44-0400 Body height 172.[address] Leah Salvador MD Work Phone: [facility] 05-23-2025 13:44-0400 Body mass index (BMI) [Ratio] 34.8 kg/m2 Dr. Leah Salvador MD Work Phone: [facility] 05-23-2025 13:44-0400 Body weight 103.[address] Leah Salvador MD Work Phone: [facility] 05-23-2025 13:44-0400 Diastolic blood pressure 79 mm[Hg] Dr. Leah Salvador MD Work Phone: [facility] 05-23-2025 13:44-0400 Heart rate 66 /min Dr. Leah Salvador MD Work Phone: [facility] 05-23-2025 13:44-0400 Respiratory rate 17 /min Dr. Leah Salvador MD Work Phone: [facility] 05-23-2025 13:44-0400 SaO2% (BldA) [Mass fraction] 98 % Dr. Leah Salvador MD Work Phone: [facility] 05-23-2025 13:44-0400 Systolic blood pressure 134 mm[Hg] Dr. Leah Salvador MD Work Phone: [facility] 04-06-2025 10:05-0400 Body height 172.[address] Leah Salvador MD Work Phone: [facility] 04-06-2025 10:05-0400 Body mass index (BMI) [Ratio] 33.4 kg/m2 Dr. Leah Salvador MD Work Phone: [facility] 04-06-2025 10:05-0400 Body temperature 98.7 [degF] Dr. Leah Salvador MD Work Phone: [facility] 04-06-2025 10:05-0400 Body weight 99.[address] Leah Salvador MD Work Phone: [facility] 04-06-2025 10:05-0400 Diastolic blood pressure 80 mm[Hg] Dr. Leah Salvador MD Work Phone: [facility] 04-06-2025 10:05-0400 Heart rate 71 /min Dr. Leah Salvador MD Work Phone: [facility] 04-06-2025 10:05-0400 Respiratory rate 16 /min Dr. Leah Salvador MD Work Phone: [facility] 04-06-2025 10:05-0400 SaO2% (BldA) [Mass fraction] 99 % Dr. Leah Salvador MD Work Phone: [facility] 04-06-2025 10:05-0400 Systolic blood pressure 118 mm[Hg] Dr. Leah Salvador MD Work Phone: [facility] 01-24-2025 12:48-0500 Diastolic blood pressure 78 mm[Hg] Dr. Leah Salvador MD Work Phone: [facility] 01-24-2025 12:48-0500 Systolic blood pressure 114 mm[Hg] Dr. Leah Salvador MD Work Phone: [facility] 01-24-2025 10:44-0500 Body mass index (BMI) [Ratio] 33.3 kg/m2 Dr. Leah Salvador MD Work Phone: [facility] 01-24-2025 10:44-0500 Body temperature 96.9 [degF] Dr. Leah Salvador MD Work Phone: [facility] 01-24-2025 10:44-0500 Body weight 99.[address] Leah Salvador MD Work Phone: [facility] 01-24-2025 10:44-0500 Heart rate 81 /min Dr. Leah Salvador MD Work Phone: [facility] 01-24-2025 10:44-0500 Respiratory rate 16 /min Dr. Leah Salvador MD Work Phone: [facility] 01-24-2025 10:44-0500 SaO2% (BldA) [Mass fraction] 96 % Dr. Leah Salvador MD Work Phone: [facility] 02-24-2024 12:59-0400 Body height 172.[address] Leah Salvador Work Phone: [facility] 02-24-2024 12:59-0400 Body mass index (BMI) [Ratio] 36.1 kg/m2 Dr. Leah Salvador Work Phone: [facility] 02-24-2024 12:59-0400 Body temperature 99 [degF] Dr. Leah Salvador Work Phone: [facility] 02-24-2024 12:59-0400 Body weight 107.[address] Leah Salvador Work Phone: [facility] 02-24-2024 12:59-0400 Diastolic blood pressure 98 mm[Hg] Dr. Leah Salvador Work Phone: [facility] 02-24-2024 12:59-0400 Heart rate 107 /min Dr. Leah Salvador Work Phone: [facility] 02-24-2024 12:59-0400 Respiratory rate 20 /min Dr. Leah Salvador Work Phone: [facility] 02-24-2024 12:59-0400 SaO2% (BldA) [Mass fraction] 97 % Dr. Leah Salvador Work Phone: [facility] 02-24-2024 12:59-0400 Systolic blood pressure 152 mm[Hg] Dr. Leah Salvador Work Phone: [facility] 08-31-2023 07:31-0400 Body height 172.[address] Leah Salvador Work Phone: [facility] 08-31-2023 07:31-0400 Body mass index (BMI) [Ratio] 35.4 kg/m2 Dr. Leah Salvador Work Phone: [facility] 08-31-2023 07:31-0400 Body temperature 97.9 [degF] Dr. Leah Salvador Work Phone: [facility] 08-31-2023 07:31-0400 Body weight 105.[address] Leah Salvador Work Phone: [facility] 08-31-2023 07:31-0400 Diastolic blood pressure 82 mm[Hg] Dr. Leah Salvador Work Phone: [facility] 08-31-2023 07:31-0400 Heart rate 64 /min Dr. Leah Salvador Work Phone: [facility] 08-31-2023 07:31-0400 Respiratory rate 16 /min Dr. Leah Salvador Work Phone: [facility] 08-31-2023 07:31-0400 SaO2% (BldA) [Mass fraction] 97 % Dr. Leah Salvadro Work Phone: [facility] 08-31-2023 07:31-0400 Systolic blood pressure 122 mm[Hg] Dr. Leah Salvador Work Phone: [facility] 08-03-2023 11:03-0400 Diastolic blood pressure 102 mm[Hg] Dr. Leah Salvador Work Phone: [facility] 08-03-2023 11:03-0400 Systolic blood pressure 146 mm[Hg] Dr. Leah Salvador Work Phone: [facility] 08-03-2023 10:10-0400 Body height 172.[address] Leah Salvador Work Phone: [facility] 08-03-2023 10:10-0400 Body mass index (BMI) [Ratio] 35.2 kg/m2 Dr. Leah Salvador Work Phone: [facility] 08-03-2023 10:10-0400 Body temperature 98.3 [degF] Dr. Leah Salvador Work Phone: [facility] 08-03-2023 10:10-0400 Body weight [address] Leah Salvador Work Phone: [facility] 08-03-2023 10:10-0400 Heart rate 60 /min Dr. Leah Salvador Work Phone: [facility] 08-03-2023 10:10-0400 Respiratory rate 16 /min Dr. Leah Salvador Work Phone: [facility] 08-03-2023 10:10-0400 SaO2% (BldA) [Mass fraction] 97 % Dr. Leah Salvador Work Phone: [facility] 10-14-2022 15:56-0500 Diastolic blood pressure 96 mm[Hg] Dr. Landry Bro Work Phone: [facility] Work Phone: 10-14-2022 15:56-0500 Systolic blood pressure 142 mm[Hg] Dr. Landry Bro Work Phone: [facility] Work Phone: 10-14-2022 15:06-0500 Body temperature 96.9 [degF] Dr. Landry Bro Work Phone: [facility] Work Phone: 10-14-2022 15:06-0500 Body weight 99.[address] Landry Bro Work Phone: [facility] Work Phone: 10-14-2022 15:06-0500 Heart rate 77 /min Dr. Landry Bro Work Phone: [facility] Work Phone: 10-14-2022 15:06-0500 Respiratory rate 18 /min Dr. Landry Bro Work Phone: [facility] Work Phone: 10-14-2022 15:06-0500 SaO2% (BldA) [Mass fraction] 99 % Dr. Landry Bro Work Phone: [facility] Work Phone: 09-24-2022 13:31-0400 Body height 172.[address] Landry Bro Work Phone: [facility] Work Phone: 09-24-2022 13:31-0400 Body mass index (BMI) [Ratio] 32.5 kg/m2 Dr. Landry Bro Work Phone: [facility] Work Phone: 09-24-2022 13:31-0400 Body weight 97.[address] Landry Bro Work Phone: [facility] Work Phone: 09-17-2022 13:53-0400 Body temperature 96.2 [degF] Dr. Landry Bro Work Phone: [facility] Work Phone: 09-17-2022 13:53-0400 Body weight 95.[address] Landry Bro Work Phone: [facility] Work Phone: 09-17-2022 13:53-0400 Diastolic blood pressure 96 mm[Hg] Dr. Landry Bro Work Phone: [facility] Work Phone: 09-17-2022 13:53-0400 Heart rate 83 /min Dr. Landry Bro Work Phone: [facility] Work Phone: 09-17-2022 13:53-0400 Respiratory rate 16 /min Dr. Landry Bro Work Phone: [facility] Work Phone: 09-17-2022 13:53-0400 SaO2% (BldA) [Mass fraction] 99 % Dr. Landry Bro Work Phone: [facility] Work Phone: 09-17-2022 13:53-0400 Systolic blood pressure 156 mm[Hg] Dr. Landry Bro Work Phone: [facility] Work Phone: 08-26-2022 15:04-0400 Body mass index (BMI) [Ratio] 32.3 kg/m2 Dr. Landry Bro Work Phone: [facility] Work Phone: 08-26-2022 15:04-0400 Body temperature 98.7 [degF] Dr. Landry Bro Work Phone: [facility] Work Phone: 08-26-2022 15:04-0400 Body weight 96.[address] Landry Bro Work Phone: [facility] Work Phone: 08-26-2022 15:04-0400 Diastolic blood pressure 84 mm[Hg] Dr. Landry Bro Work Phone: [facility] Work Phone: 08-26-2022 15:04-0400 Heart rate 65 /min Dr. Landry Bro Work Phone: [facility] Work Phone: 08-26-2022 15:04-0400 Respiratory rate 14 /min Dr. Landry Bro Work Phone: [facility] Work Phone: 08-26-2022 15:04-0400 SaO2% (BldA) [Mass fraction] 99 % Dr. Landry Bro Work Phone: [facility] Work Phone: 08-26-2022 15:04-0400 Systolic blood pressure 140 mm[Hg] Dr. Landry Bro Work Phone: [facility] Work Phone: 04-09-2022 07:37-0400 Body height 172.[address] Landry Bro Work Phone: [facility] Work Phone: 04-09-2022 07:37-0400 Body mass index (BMI) [Ratio] 33.3 kg/m2 Dr. Landry Bro Work Phone: [facility] Work Phone: 04-09-2022 07:37-0400 Body temperature 97.5 [degF] Dr. Landry Bro Work Phone: [facility] Work Phone: 04-09-2022 07:37-0400 Body weight 99.[address] Landry Bro Work Phone: [facility] Work Phone: 04-09-2022 07:37-0400 Diastolic blood pressure 81 mm[Hg] Dr. Landry Bro Work Phone: [facility] Work Phone: 04-09-2022 07:37-0400 Heart rate 70 /min Dr. Landry Bro Work Phone: [facility] Work Phone: 04-09-2022 07:37-0400 Respiratory rate 17 /min Dr. Landry Bro Work Phone: [facility] Work Phone: 04-09-2022 07:37-0400 SaO2% (BldA) [Mass fraction] 96 % Dr. Landry Bro Work Phone: [facility] Work Phone: 04-09-2022 07:37-0400 Systolic blood pressure 120 mm[Hg] Dr. Landry Bro Work Phone: [facility] Work Phone: 01-09-2022 05:30-0500 Body mass index (BMI) [Ratio] 32.2 kg/m2 Dr. Landry Bro Work Phone: [facility] Work Phone: 01-09-2022 05:30-0500 Body temperature 97.3 [degF] Dr. Landry Bro Work Phone: [facility] Work Phone: 01-09-2022 05:30-0500 Body weight 96.[address] Landry Bro Work Phone: [facility] Work Phone: 01-09-2022 05:30-0500 Diastolic blood pressure 72 mm[Hg] Dr. Landry Bro Work Phone: [facility] Work Phone: 01-09-2022 05:30-0500 Heart rate 78 /min Dr. Landry Bro Work Phone: [facility] Work Phone: 01-09-2022 05:30-0500 Respiratory rate 18 /min Dr. Landry Bro Work Phone: [facility] Work Phone: 01-09-2022 05:30-0500 SaO2% (BldA) [Mass fraction] 97 % Dr. Landry Bro Work Phone: [facility] Work Phone: 01-09-2022 05:30-0500 Systolic blood pressure 117 mm[Hg] Dr. Landry Bro Work Phone: [facility] Work Phone: Encounters Encounter Date Encounter Type Care Provider Facility Start: 05-29-2025 ambulatory Leah Salvador Facility :[facility] Start: 05-29-2025 Non-patient / Non-visit Dr. Omar Guardado MD -[facility] Start: 05-29-2025 End: 05-29-2025 Admission to same day surgery center Dr. Omar Guardado [facility] Start: 05-29-2025 End: 05-29-[address] Leah Salvador MD Work Phone: [facility] Start: 05-23-2025 End: 05-23-[address] Omar Guardado MD -[facility] Work Phone: Start: 05-23-2025 End: 05-23-[address] Leah Salvador MD Work Phone: -[facility] Start: 05-11-2025 End: 05-11-[address] Leah Salvador MD Work Phone: [facility] Work Phone: Start: 05-11-2025 End: 05-11-2025 Patient encounter procedure Dony DAMON -Nuclear Medicine [facility] Work Phone: Start: 05-11-2025 End: 05-11-2025 ambulatory Leah Salvador Facility:[facility] Start: 04-06-2025 End: 04-06-[address] Leah Salvador MD Work Phone: [facility] Work Phone: Start: 04-06-2025 End: 04-06-2025 Patient encounter procedure Dony DAMON -Laboratory [facility] Start: 04-06-2025 End: 04-06-2025 Patient encounter procedure Dony DAMON -[facility] Work Phone: Start: 04-06-2025 End: 04-06-[address] Leah Salvador MD Work Phone: [facility] Work Phone: Start: 04-06-2025 End: 04-06-2025 ambulatory Leah Madeleine Facility:[facility] Start: 01-24-2025 End: 01-24-[address] Leah Salvador MD -[facility] Work Phone: Start: 01-24-2025 End: 01-24-2025 ambulatory Leah Oakland Facility:[facility] Start: 12-06-2024 End: 12-06-2024 ambulatory Leah Oakland Facility:[facility] Start: 11-28-2024 End: 11-28-2024 ambulatory Leah Oakland Facility:[facility] Start: 11-28-2024 End: 11-28-2024 ambulatory Shyam Valencia Facility:[facility] Start: 11-01-2024 End: 11-01-2024 ambulatory Leah Oakland Facility:[facility] Start: 10-24-2024 End: 10-24-2024 ambulatory Leah Oakland Facility:[facility] Start: 08-30-2024 End: 08-30-2024 ambulatory Cosmo Syed Facility:[facility] Start: 08-29-2024 End: 08-29-2024 Emergency department patient visit Cosmo Syed Facility:[facility] Start: 08-10-2024 ambulatory Kathy Carter Facility:[facility] Start: 08-10-2024 End: 08-10-2024 ambulatory Leah Oakland Facility:[facility] Start: 06-29-2024 End: 06-29-2024 ambulatory Leah Oakland Facility:[facility] Start: 06-29-2024 End: 06-29-2024 ambulatory Leah Madeleine Facility:[facility] Start: 06-13-2024 End: 06-13-2024 ambulatory Leah Salvador Facility:[facility] Start: 02-24-2024 End: 02-24-[address] Leah Salvador Work Phone: [facility] Work Phone: Start: 02-24-2024 End: 02-24-[address] [facility] Start: 02-24-2024 End: 02-24-[address] Leah Salvador Work Phone: [facility] Internal Medicine Work Phone: Start: 09-21-2023 End: 09-21-[address] Leah Salvador Work Phone: [facility] Work Phone: Start: 09-21-2023 End: 09-21-[address] [facility] Salvador [facility] Start: 09-03-[address] Leah Salvador Work Phone: [facility] Work Phone: Start: 08-31-2023 End: 08-31-[address] Leah Salvador Work Phone: [facility] Internal Medicine Work Phone: Start: 08-07-2023 End: 08-07-[address] Leah Salvador Work Phone: [facility] Work Phone: Start: 08-07-2023 End: 08-07-[address] Leah Salvador [facility] Work Phone: Start: 08-03-2023 End: 08-03-[address] Leah Salvador Work Phone: [facility] Work Phone: Start: 08-03-2023 End: 08-03-[address] Leah Salvador Work Phone: [facility] [place] Start: 08-03-2023 End: 08-03-[address] Leah Salvador Work Phone: [facility] Internal Medicine Work Phone: Start: 10-15-[address] Terri Bro Work Phone: [facility]-Physical Therapy Start: 10-14-2022 End: 10-14-[address] Landry Bro Work Phone: [facility] Work Phone: Start: 10-14-2022 End: 10-14-[address] Landry Bro Work Phone: [facility] [place] Start: 10-14-2022 End: 10-14-[address] Landry Bro Work Phone: [facility] Internal Medicine Start: 09-24-2022 End: 09-24-[address] Landry Bro Work Phone: [facility] Orthopaedic Specia Start: 09-17-2022 End: 09-17-[address] Landry Bro Work Phone: [facility] Internal Medicine Start: 09-01-2022 Non-patient / Non-visit Dr. Landry Bro Work Phone: [facility] Start: 09-01-2022 End: 09-01-[address] Landry Bro Work Phone: [facility]-Cardiovascular Services Start: 08-26-2022 End: 08-26-[address] Landry Bro Work Phone: [facility] Internal Medicine Start: 04-09-2022 End: 04-09-[address] Landry [facility] Start: 04-08-2022 End: 04-08-[address] Landry Bro Work Phone: [facility]-Outpatient Breast Imaging Start: 04-01-2022 End: 04-01-[address] Landry Bro Work Phone[facility] Start: 01-09-2022 End: 01-09-[address] Landry Bro [facility] Procedures Date Procedure Procedure Detail Performing Clinician Start: 05-29-[address] Leah Salvador MD Work Phone: Start: 05-11-2025 Radionuclide study o f abdomen Dr. Leah Salvador MD Work Phone: Start: 08-07-[address] Ganesh Salvador Work Phone: Start: 09-24-2022 Radiologic examinati on of knee Dr. Landry Bro Work Phone: Start: 04-08-2022 Screening mammography Karla Bro Work Phone: Plan of Treatment Date Care Activity Detail Author Start: 05-29-2025 Patient discharge [facility] Start: 04-06-2025 Amylase [Enzymatic activity/volume] in Serum or Plasma [facility] Start: 04-06-2025 CBC W Auto Different ial panel - Blood [facility] Start: 04-06-2025 Comprehensive metabo lic 2000 panel - Serum or Plasma [facility] Start: 04-06-2025 Triacylglycerol lipase measurement [facility] Start: 08-03-2023 Patient referral [facility] Work Phone: Start: 09-05-2022 Patient referral [facility] Work Phone: Alanine aminotransfe rase [Enzymatic activity/volume] in Serum or Plasma [facility] Albumin [Mass/volume ] in Serum or Plasma [facility] Alkaline phosphatase [Enzymatic activity/volume] in Serum or Plasma [facility] Anion gap in Serum or Plasma [facility] Bilirubin, total measurement [facility] BUN/Creatinine ratio [facility] Calcium [Mass/volume ] in Serum or Plasma [facility] Carbon dioxide, tota l [Moles/volume] in Central venous blood [facility] Creatinine [Mass/vol ume] in Serum or Plasma [facility] Erythrocyte mean cor puscular volume determination [facility] Glucose [Mass/volume ] in Serum or Plasma [facility] Hematocrit [Volume F raction] of Blood [facility] Hemoglobin [Mass/volume] in Blood [facility] Leukocytes [#/volume] in Blood [facility] Mean corpuscular hem oglobin concentration determination [facility] Mean corpuscular hem oglobin determination [facility] Measurement of renal function [facility] Neutrophil count [facility] Neutrophil percent d ifferential count [facility] Patient referral [facility] Work Phone: Platelets [#/volume] in Blood [facility] Potassium measurement [facility] Radionuclide study of abdomen [facility] Red blood cell count [facility] Red cell distributio n width determination [facility] Serum chloride measurement [facility] Sodium measurement [facility] Total protein measurement [facility] Urea nitrogen [Mass/ volume] in Serum or Plasma [facility] Immunizations Immunization Date Immunization Notes Care Provider Fa cility 12-10-2021 Covid ([employer]rip[employer]) Dr. Landry Bro Work Phone: [facility] 02-07-2021 Covid (Pfizer) Dr. Landry Bro Work Phone: [facility] 01-17-2021 Covid (Pfizer) Dr. Landry Bro Work Phone: [facility] 08-31-2020 influenza, injectabl e, quadrivalent, preservative free Dr. Leah Salvador Work Phone: [facility] 08-31-2020 influenza, seasonal, injectable Dr. Landry Bro Work Phone: [facility] Work Phone: 08-18-2017 Influenza, injectabl e, Madin Janet Canine Kidney, preservative free, quadrivalent Dr. Landry Bro Work Phone: [facility] 07-24-2017 influenza, injectabl e, quadrivalent, preservative free Dr. Leah Salvador Work Phone: [facility] 07-24-2017 influenza, seasonal, injectable Dr. Landry Bro Work Phone: [facility] Work Phone: Payers Date Payer Category Payer Self-pay [id number] 2024 Unknown 2024 Unknown [id number] Unknown [id number] Unknown [id number] 2.16.8 [id number] Unknown [id number] 2.16.8 [id number] Unknown [id number] 2.16.8 [id number] Unknown [id number] 2.16.8 [id number] Unknown [id number] 2.16.8 [id number] Unknown [id number] 2.16.8 40.1.655479.3.579.2.462 Unknown [id number] 2.16.8 40.1.807414.3.579.2.462 Unknown [id number] 2.16.8 40.1.358039.3.579.2.462 Unknown [id number] 2.16.8 40.1.506324.3.579.2.462 Unknown [id number] 2.16.8 40.1.689893.3.579.2.462 Unknown [id number] 2.16.8 40.1.558508.3.579.2.462 Unknown [id number] 2.16.8 40.1.875877.3.579.2.462 Unknown [id number] 2.16.8 40.1.504732.3.579.2.462 Unknown [id number] 2.16.8 40.1.837016.3.579.2.462 Unknown [id number] 2.16.8 40.1.006930.3.579.2.462 Unknown [id number] 2.16.8 40.1.688455.3.579.2.462 Unknown [id number] 2.16.8 40.1.583752.3.579.2.462 Unknown [id number] 2.16.8 [id number] Unknown [id number] 2.16.8 40.1.191689.3.579.2.462 Social History Date Type Detail Facility Start: 04-09-2022 End: 02-24-2024 Tobacco smoking status IDIS Unknown if ever smoked [facility] Start: 09-06-2020 Non-smoker [facility] Start: 1970 Sex Assigned At Female [facility] Start: 12-06-2024 End: 2025 Tobacco smoking status NHIS Never smoked tobacco (finding) [facility] NEGATED: Highlighted row Not [facility] Goals Date Patient Goal Desired Activity /State Mental Status Date Assessment Result Facility 05-29-2025 Cognitive function Level Of Consciousness Drowsy [facility] Work Phone: Clinical Notes 04-01-2022 to 05-29-2025 Note Date & Type Note Facility 05-29-2025 Consult note Note Date/Time May 29, 2025 11:25 am [facility] Medical Records Department [address] [place] [address] Anesthesia Postop Eval II 05/29/25 1125 MR#: [id number] Acct: [id number] Name: CARLA ANDERSON Rep #:[id number] : 1970 55 From: Donnie Zendejas MD PCP: Dr. 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 Spontaneous unlabored Yes 05/29/25 10:58 J[employer] BUILDER APPRENTICE.APAT respirations Mental status Awake 05/29/25 10:58 [employer] BUIL[employer] APPRENTICE.APAT nausea No 05/29/25 10:58 J[employer] AND [employer]TURE BUILDER APPRENTICE.APAT Vomiting No 05/29/25 10:58 [employer] AND [employer]TURE BUILDER APPRENTICE.APAT Anesthesia Postop Eval I: Fluid Summary Crystalloid volume administer 600 05/29/25 10:58 J[employer] AND FIXTURE BUILDER APPRENTICE.APAT (ml) Colloids volume administered ( ml) Blood Product volume administered (ml) Total IV fluid infused 600 05/29/25 10:58 J[employer] BUILDER APPRENTICE.APAT Anesthesia Postop Eval I: Summary Notes Anesthesia Complication No 05/29/25 10:58 J[employer] AND FIXTURE BUILDER APPRENTICE.APAT Anesthesia Complication Comment: Post-operative progress note Anesthesia: Postop Eval II Evaluation Mental status: Awake Pain Level: 2 nausea: No Vomiting: No 05/29/25 1125 <Electronically signed by Donnie Zendejas MD > Date _ Donnie Murphy Signature: Date CC: ~ Signed [facility] Work Phone: 1(948) 439-102807-07-2025 Consult note Author Graeme Mccormack [facility] Note Date/Time May 29, 2025 10:58 am [facility] Medical Records Department [address] [place] [address] Anesthesia Postop Eval I 05/29/25 1058 MR#: [id number] Acct: [id number] Name: CARLA ANDERSON Rep #:[id number] : 1970 55 From: Graeme Mccormack CRNA PCP: Dr. Leah Salvador MD Status:REG [facility] Y Race: C Location: [place] [address] Anesthesia: Postop Eval I Current Vital Signs Temperature: 97.1 F Pulse Rate: 68 Blood Pressure: 84/67 Respiratory Rate: 16 Pulse Ox: 99 Oxygen Delivery Method: Room Air Assessment Airway patent: Yes Spontaneous unlabored respirations: Yes Mental status: Awake nausea: No Vomiting: No Anesthesia Complication: No Fluid Hydration Crystalloid volume administer (ml): 600 Total IV fluid infused: 600 Progress Note Anesthesia document: Postop Eval 1 completed: Yes 05/29/251057 <Electronically signed by Graeme garcia JIG AND FIXTURE BUILDER APPRENTICE> Date _ Graeme Amaraligner Signature: Date CC: ~ Signed [facility] Work Phone: 1(140) 897-775407-07-2025 Discharge summary Author Omar Guardado [facility] Note Date/Time May 29, 2025 10:47 am [facility] Medical Records Department [address] [place] [address] Instructions for Home/Discharge Instructions 05/29/25 1045 MR#: [id number] Acct: [id number] Name: CARLA ANDERSON Rep #:[id number] : 1970 55 From: Omar longoria MD PCP: Dr. Leah Salvador MD Status:REG SDC Discharge Instructions Procedure Gallbladder Diet Discharge Diet: Light diet - advance as tolerated Activity Discharge Activity: May Not Drive (for 2-3 days or while taking narcotic pain medications.) and - (Do not drive, work heavy equipment or sign legal documents for 24 hours.) May shower in (days): 1 Lifting Restrictions: 20 lbs for 2 weeks Additional Activity Instructions:: Pain medication may cause nausea. You should typically eat light foods as you take your pain medications. Pain medication may also cause constipation. If this is a problem for you, please discuss with your doctor. Alternate ibuprofen and Tylenol for pain control, oxycodone for breakthrough pain Dressing / Incision Call your doctor if your incision/area has: Continuous Slow Oozing, Sudden Increased Bleeding, Increased Pain/ Swelling, Increased Redness and Foul Smelling Discharge Call your doctor if you observe: Fever of 101 or Higher Suture Line Care: Avoid Pulling/Pushing and Avoid Pinching/Bending Remove Dressing in: 2 days Additional Dressing/Incision Instructions:: Leave operative bandaids on for 2 days. When you remove dressing, leave Steri-Strips on until your follow-up appointment, or until the Steri-Strips fall off on their own. Follow Up Care Please Follow Up With: Omar Guardado MD When: Please call to schedule 2 week follow up appointment. [phone] Test Results: Test results from this visit will be discussed in further detail at your follow- up appointment, if applicable. Discharge Plan Admission Attending Provider: Omar Guardado Primary Care Provider: Leah Salvador Instructions Print Language: Faroese Discharge Orders/Prescriptions Prescriptions: New oxycodone 5 mg Tablet 5 - 10 mg PO Q4H PRN PRN (Reason: Pain Score 4-10) 5 Days Qty: 14 0RF No Action rosuvastatin 5 mg tablet 5 mg PO DAILY Qty: 90 1RF escitalopram oxalate 5 mg tablet 5 mg PO DAILY Qty: 90 0RF lisinopril 20 mg tablet See Rx Instructions .ROUTE .COMPLEX Qty: 90 0RF Dose Instruction: TAKE 1 TABLET BY MOUTH EVERY DAY Rx Instructions: TAKE 1 TABLET BY MOUTH EVERY DAY Referrals / Follow Up: Leah Salvador MD [Primary Care Provider] - Disposition Disposition (needs filled in before D/C Order can be placed): Home, Self Care 05/29/25 1047<Electronically signed by Omar Guardado MD>Omar Guardado MD CC: Dr. Leah Salvador MD ~ Signed [facility] Work Phone: 1(805) 451-884807-07-2025 Consult note [facility] Medical Records Department [address] [place] [address] Anesthesia Postop Eval II 05/29/25 1125 MR#: [id number] Acct: [id number] Name: CARLA ANDERSON Rep #:[id number] : 1970 55 From: Donnie Zendejas MD PCP: Dr. Leah Salvador MD Status:REG SD Y Race: C Location: [address] Anesthesia Postop Eval I Sum Postop Eval Completion status Anesthesia document: Postop Eval 1 completed: Yes Anesthesia Postop Eval I Summary Anesthesia Postop Eval I Summary: Anesthesia Postop Eval I: Assessment Summary 3 Airway patent Yes 05/29/25 10:58 JIG AND FIXTURE BUILDER APPRENTICE.APAT Spontaneous unlabored Yes 05/29/25 10:58 JIG AND FIXTURE BUILDER APPRENTICE.APAT respirations Mental status Awake 05/29/25 10:58 JIG AND FIXTURE BUILDER APPRENTICE.APAT nausea No 05/29/25 10:58 JIG AND FIXTURE BUILDER APPRENTICE.APAT Vomiting No 05/29/25 10:58 JIG AND FIXTURE BUILDER APPRENTICE.APAT Anesthesia Postop Eval I: Fluid Summary Crystalloid volume administer 600 05/29/25 10:58 JIG AND FIXTURE BUILDER APPRENTICE.APAT (ml) Colloids volume administered ( ml) Blood Product volume administered (ml) Total IV fluid infused 600 05/29/25 10:58 JIG AND FIXTURE BUILDER APPRENTICE.APAT Anesthesia Postop Eval I: Summary Notes Anesthesia Complication No 05/29/25 10:58 JIG AND FIXTURE BUILDER APPRENTICE.APAT Anesthesia Complication Comment: Post-operative progress note Anesthesia: Postop Eval II Evaluation Mental status: Awake Pain Level: 2 nausea: No Vomiting: No 05/29/25 1125 > Date _ Donnie Zendejas MD Cosigner Signature: Date CC: ~ Signed [facility]07-07-2025 Consult note [facility] Medical Records Department [address] [address] Anesthesia Postop Eval I 05/29/25 1058 MR#: [id number] Acct: [id number] Name: CARLA ANDERSON Rep #:[id number] : 1970 55 From: Graeme Mccormack CRNA PCP: Dr. Leah Salvador MD Status:[facility] Y Race: C Location: [place] [address] Anesthesia: Postop Eval I Current Vital Signs Temperature: 97.1 F Pulse Rate: 68 Blood Pressure: 84/67 Respiratory Rate: 16 Pulse Ox: 99 Oxygen Delivery Method: Room Air Assessment Airway patent: Yes Spontaneous unlabored respirations: Yes Mental status: Awake nausea: No Vomiting: No Anesthesia Complication: No Fluid Hydration Crystalloid volume administer (ml): 600 Total IV fluid infused: 600 Progress Note Anesthesia document: Postop Eval 1 completed: Yes 05/29/25 1058 n JIG AND FIXTURE BUILDER APPRENTICE> Date _ Graeme Mccormack CRNA Cosigner Signature: Date CC: ~ Signed [facility]07-07-2025 Consult note Author Graeme Mccormack [facility] Note Date/Time May 29, 2025 8:55a m [facility] Medical Records Department [address] [facility] [place] [address] Anesthesia Postop Eval I 05/29/25 0854 MR#: [id number] Acct: [id number] Name: CARLA ANDERSON REBECCA Rep #:[id number] : 1970 55 From: Graeme Mccormack CRNA PCP: Dr. Leah Salvador MD Status:[facility] Y Race: C Location: [place] [address] Anesthesia: Postop Eval I Current Vital Signs Temperature: 97 F Pulse Rate: 99 Blood Pressure: 111/79 Respiratory Rate: 16 Pulse Ox: 100 Oxygen Delivery Method: Room Air Assessment Airway patent: Yes Spontaneous unlabored respirations: Yes Mental status: Awake nausea: No Vomiting: No Anesthesia Complication: No Fluid Hydration Crystalloid volume administer (ml): 1,000 Total IV fluid infused: 1,000 Progress Note Anesthesia document: Postop Eval 1 completed: Yes 05/29/25 08 <Electronically signed by Graeme garcia CRNA> Date _ Graeme Mccormack CRNA Cosigner Signature: Date CC: ~ Signed [facility] Work Phone: 1(458) 428-428007-07-2025 Discharge summary [facility] Medical Records Department [facility] [place] [address] Instructions for Home/Discharge Instructions 05/29/25 1045 MR#: [id number] Acct: [id number] Name: CARLA ANDERSON REBECCA Rep #:[id number] : 1970 55 From: Omar longoria MD PCP: Dr. Leah Salvador MD Status:[facility] Discharge Instructions Procedure Gallbladder Diet Discharge Diet: Light diet - advance as tolerated Activity Discharge Activity: May Not Drive (for 2-3 days or while taking narcotic pain medications.) and - (Do not drive, work heavy equipment or sign legal documents for 24 hours.) May shower in (days): 1 Lifting Restrictions: 20 lbs for 2 weeks Additional Activity Instructions:: Pain medication may cause nausea. You should typically eat lightfoods as you take your pain medications. Pain medication may also cause constipation. If this is a problem for you, please discuss with yourdoctor. Alternate ibuprofen and Tylenol for pain control, oxycodone for breakthrough pain Dressing / Incision Call your doctor if your incision/area has: Continuous Slow Oozing, Sudden Increased Bleeding, Increased Pain/ Swelling, Increased Redness and Foul Smelling Discharge Call your doctor if you observe: Fever of 101 or Higher Suture Line Care: Avoid Pulling/Pushing and Avoid Pinching/Bending Remove Dressing in: 2 days Additional Dressing/Incision Instructions:: Leave operative bandaids on for 2 days. When you removedressing, leave Steri-Strips on until your follow-up appointment, or until the Steri-Strips fall off on their own. Follow Up Care Please Follow Up With: Omar Guardado MD When: Please call to schedule 2 week follow up appointment. [phone] Test Results: Test results from this visit will be discussed in further detail at your follow- up appointment, if applicable. Discharge Plan Admission Attending Provider: Omar Guardado Primary Care Provider: Leah aSlvador Instructions Print Language: Faroese Discharge Orders/Prescriptions Prescriptions: New oxycodone 5 mg Tablet 5 - 10 mg PO Q4H PRN PRN (Reason: Pain Score 4-10) 5 Days Qty: 14 0RF No Action rosuvastatin 5 mg tablet 5 mg PO DAILY Qty: 90 1RF escitalopram oxalate 5 mg tablet 5 mg PO DAILY Qty: 90 0RF lisinopril 20 mg tablet See Rx Instructions .ROUTE .COMPLEX Qty: 90 0RF Dose Instruction: TAKE 1 TABLET BY MOUTH EVERY DAY Rx Instructions: TAKE 1 TABLET BY MOUTH EVERY DAY Referrals / Follow Up: Leah Salvador MD [Primary Care Provider] - Disposition Disposition (needs filled in before D/C Order can be placed): Home, Self Care 05/29/25 1047Akedar Guardado MD CC: Dr. Leah Salvador MD ~ Signed [facility]07-07-2025 Procedure note [facility] Medical Records Department [address] [place] [address] Operative Report 05/29/25 1041 MR#: [id number] Acct: [id number] Name: CARLA ANDERSON Rep #:[id number] : 1970 55 From: Omar longoria MD PCP: Dr. Leah Salvador MD Status:[facility] Location: [place] [address] Operative Report (Standard) Operative Information Date of Procedure: 05/29/25 Pre-Operative Diagnosis: Biliary dyskinesia Post-Operative Diagnosis: Biliary dyskinesia Surgery/Procedure Performed: Robotic assisted laparoscopic cholecystectomy logistics analytics manager: Yes Coat Ironer Hand: Benja Soto Tasks completed by spa assistant manager: Opening & closing and Retracting Type of Anesthesia: General/Regional RN Documented Start/Stop Times: Operation Date: 05/29/25 09:15 Case Time Into Pre-Op 05/29/25 07:50 Out of Pre-Op 05/29/25 09:30 Anesthesia Start 05/29/25 09:32 Into Room 05/29/25 09:32 Procedure Start 05/29/25 09:50 Procedure Start Time: 09:50 Procedure Stop Time: 10:50 Select all DRAINS/GRAFTS/IMPLANTS that apply: None Estimated Blood Loss: 5 Specimen collected: Yes Description of specimen(s) removed: Gallbladder Description of surgery: Patient was brought back to the operating room and general anesthesia was induced. The abdomen was prepped and draped in usual sterile fashion. A midline incision was made superior to the umbilicus and the fascia was grasped and elevated. A Veress needle was placed in the abdomen and drop test was performed. Next the abdomen was insufflated to 15 mmHg. The Veress needle was removed and a port wasplaced. Camera was placed into the abdomen and there were no injuries from entry. Under direct visualization 2 left upper quadrant ports were placed and a right upper quadrant port was placed. The gallbladder was retracted cephalad and the infundibulum was retracted laterally. The peritoneum was str ipped and the dissection occurred. The cystic duct and cysticartery were identified. This was done with the assistance of ICG. The cystic duct was clipped triply and divided. The cystic artery was clipped triply and divided. The gallbladder was taken off of the gallbladder fossa using electrocautery hook. The gallbladder was then placed into a bag and removed. The robot was undocked and Pipo-Cullen needle was used to close the midline fascia using a [id number] 0 Vicryl suture. Next theincisions were injected with local anesthetic and closed with interrupted 4-0 Monocryl sutures. Steri-Strips and bandages were applied. Patient was taken to PACU in stable condition. Surgical Findings: None Complications Complications: No Admit VTE Documentation VTE Mechan Device Prophylaxis: SCD's 05/29/25 1045 Cosigner Signature (if applicable): CC: Dr. Leah Salvador MD; Dr. Omar Guardado MD~ Signed [facility]07-07-2025 History and physical note Author Omar Guardado [facility] Note Date/Time May 29, 2025 8:38a m [facility] Medical Records Department [address] [facility] [place] [address] History & Physical Exam 05/29/25 0838 MR#: [id number] Acct: [id number] Name: CARLA ANDERSON Rep #:[id number] : 1970 55 From: Omar longoria MD PCP: Dr. Leah Salvador MD Status:[facility] Location: [place] [address] History and Physical Date of Admission: 05/29/25 Intake Vital Signs 04/06/2510:05 05/23/2513:44 Height 5 ft 8 in 5 ft 8 in Weight: 220 lb 229 lb BMI 33.4 34.8 BP 118/80 134/79 H Blood Pressure Location Lt brachial Rt brachial Position Sitting Sitting Respiration 16 17 Pulse 71 66 Pulse Source Monitor Monitor Temp 98.7 F Temp Source Temporal Pulse Oximetry (%) 99 98 Oxygen Delivery Method room air room air Intake Visit Reasons: ABNORMAL HIDA Chief Complaint: abnormal hida Is patient in pain?: No Allergies No Known Allergies Allergy (Verified 05/23/25 13:45) Medications ?Medication ?Instructions ?Recorded ?Confirmed ?Type rosuvastatin 5 mg tablet 5 mg PO DAILY #90 tabs 03/27/25 05/23/25 Rx escitalopram oxalate 5 mg tablet 5 mg PO DAILY #90 TABLETS 04/12/2505/23 Rx lisinopril 20 mg tablet See Rx Instructions .Route 04/24/25 05/23/25 Rx .COMPLEX #90 tabs PFSH Medical History Wears contact lenses Wears [...] loop electrosurgical excision procedure (LEEP) Family History (Updated 05/23/25 @ 13:44 by Teresa Mckeon) Mother Anxiety Depression Breast cancer Heart disease HypertensionFather Cancer Melanoma Diabetes Heart diseaseBrother Cancer Hodgkin lymphomaGrandmother Breast cancerSister Asthma Social History household members: spouse current occupational [...] feel safe at home: Yes HPI HPI HPI: Patient is a 54-year-old female here with right upper quadrant pain that radiates to the back and the right shoulder. She says this happens in episodes. She says greasy foods bring it on. She does not have attacks every day she said they are few times a month. ROS General General: Yes fatigue; No weight change, appetite, colon cancer, breast cancer or weakness HEENT HEENT: No difficulty swallowing, eye injury, eye surgery, swollen glands or hoarseness Endo Endocrine: No thyroid disease, diabetes mellitus, thyroid cancer, Hair loss, heat intolerance or cold intolerance Skin Skin: No rash or changing moles Musc Musculoskeletal: No back problems, arthritis, rheumatoid arthritis, gout or joint pain Cardio Cardiovascular: Yes murmur and high blood pressure; No pacemaker, heart disease, atrial fibrillation, heart attack, heart stent, palpitations, shortness of breath with exertion or chest pain Psych Psychiatric: Yes depression and anxiety; No hearing voices Resp Respiratory: No shortness of breath, No sleep apnea, No cough, No COPD, No asthma, No emphysema and No wheezing Gastro Gastrointestinal: No abdominal pain, Yes nausea or vomiting, Yes diarrhea, No constipation, No blood in stool, Yes acid reflux, No hemorrhoids, No ulcers, Yesgallbladder problem and No black,tarry stools Flash Hematologic: No blood thinners, No blood disorders, No bleeding, No anemia and No blood clots Neuro Neurologic: No system reviewed and no additional complaints, except as documented, No as per HPI, No abnormal gait, No abnormal hearing, No abnormal movements, No abnormal speech, No behavioral changes, No burning sensations, No confusion, No convulsions, No disequilibrium, No dizziness, No localized weakness, No frequent falls, No headache(s), No lack of coordination, No loss ofvision, No memory loss, No numbness, No other visual disturbances, No radicular pain, No restless legs, No sensory deficit, No syncope, No tingling, No tremor(s), No weakness and No other Exam Const General: cooperative Orientation: alert and oriented x3 HENMT Head: normal to inspection Neck Neck: normal visual inspection and full ROM Chest Chest palpation & inspection: normal inspection of the chest Resp Effort & Inspection: normal respiratory effort Auscultation: clear to auscultation bilaterally Cardio Rate: regular rate Rhythm: regular rhythm GI Inspection: non-distended Palpation: soft and nontender Skin General: no rashes or lesions noted Neuro General: patient alert and patient oriented x3 Extrem General: full ROM Psych Appearance: grossly normal Mental Status: mental status grossly normal Assessment and Plan Assessment and Plan (1) Nonfunctioning gallbladder: Status: Acute Plan: The patient has biliary dyskinesia with an ejection fraction of 15%. I discussed robotic assisted laparoscopic cholecystectomy. I discussed the procedure in detail with the patient. I discussed the risks, benefits, and alternatives of the procedure. I discussed the risks including but not limited to bleeding, infection, injury to surrounding organs such as the liver, bile duct, bowels. I did discuss the possibility of having to convert to an open procedure as well as the possibility that if any injuries occurred this may necessitate further surgery at a tertiary care center. Omar Guardado MD Pager: [facility] [address] [place] [address], [address] [place] [address] Office: I have examined the patient and the H&P has been reviewed. There are no clinicalchanges since date of exam. 05/29/25 0838 <Electronically signed by Omar Guardado MD> Cosigner Signature (if applicable): CC: Dr. Leah Salvador MD; Dr. Omar Guardado MD~ Signed [facility] Work Phone: 1(983) 842-977507-07-2025 Consult note Author Donnie Zendejas [facility] Note Date/Time May 29, 2025 7:54a m [facility] Medical Records Department [address] [place] [address] Pre-Anesthesia Evaluation 05/29/25 0753 MR#: [id number] Acct: [id number] Name: CARLA ANDERSON Rep #:[id number] : 1970 55 From: Donnie Zendejas MD PCP: Dr. Leah Salvador MD Status:REG [facility] Y Race: C Location: [place] [address] ASA Classification* ASA Classification ASA Classification: 2 Assessment & Plan Anesthesia* Anesthesia Assessment Anesthesia Assessment: Discussed sedation and/or anesthesia options, risks, benefits, and alternatives with patient/parents/legal guardian/POA. Questions invited. The patient/parents/legal guardian/POA seems to understand and agrees to proceedwith anesthesia plan. Reviewed the physical assessment, medical history, allergy history and patient home medications list prior to surgery/procedure/anesthetic and documented any changes. Performed airway and anesthesia risk assessments. Anesthesia Type Anesthesia Type: General Anesthesia Focused Assessment* Airway Assessment Mouth opens: >3 cm Mallampati Score: II Labs Anesthesia Preop lab: CBC WBC 7.2 K/mm3 (4.4-11.0) 04/06/25 11:04/06/25 RBC 4.97 M/mm3 (4.2-5.4) 04/06/25 11:04/06/25 Hgb 14.2 g/dL (12.0-15.0) 04/06/25 11:04/06/25 Hct 42.7 % (37-47) 04/06/25 11:04 04/06/25 Plt Count 266 K/mm3 (150-450) 04/06/25 11:04 04/06/25 CHEMISTRY Potassium 4.7 mmol/L (3.3-5.1) 04/06/25 11:04 04/06/25 Sodium 137 mmol/L (133-145) 04/06/25 11:04 04/06/25 BUN 8 mg/dL (4-19) 04/06/25 11:04 04/06/25 Creatinine 0.58 mg/dL (0.70-1.20) L 04/06/25 11:04 Glucose 88 mg/dL (70-99) 04/06/25 11:04 04/06/25 TSH 1.15 uIU/mL (0.358-3.74) 02/24/24 14:30 COAG PT 13.0 SECONDS (11.7-14.9) 11/28/24 14:10 Pre-Assessment Diagnosis/Proposed Procedure Planned Operative Procedure(s): Robotic Cholecystectomy Anesthesia History Anesthesia History - ventilating expert: Anesthesia History - ventilating expert Hx Hospitalization No 05/25/25 10:04 Any Problems With Anesthesia No 05/25/25 10:04 Cholinesterase deficiency No 05/25/25 10:04 You/Your Family Experience No 05/25/25 10:04 fever (hyperthermia) with Relationship Recent Exposure to Contagious No 02/24/24 11:16 Disease Does patient have nerve No 05/25/25 10:04 stimulator Patient instructed to have device shut off --Does patient have Pacemaker or ICD? When Was Last Pacemaker Check QUESTION #4 FULL TEXT: You/Your Family Experience fever (hyperthermia) with Anesthesia Last Oral Intake Last Oral intake: Last Oral Intake NPO since Meds taken in AM with sips of water? Meds patient instructed to take am of surgery PONV PONV - ventilating expert: PONV - ventilating expert Female Yes 05/25/25 10:04 HX of Motion Sickness Yes 05/25/25 10:04 HX of N/V After Surgery No 05/25/25 10:04 Non-Smoker Yes 05/25/25 10:04 Duration of Surgery greater Yes 05/25/25 10:04 than 60 minutes Number of Risk Factors 4 05/25/25 10:04 PONV Score Severe Risk 05/25/25 10:04 Height & Weight Height & Weight: Anesthesia: Height & Weight Height 5 ft 8 in 05/23/25 13:44 Respiratory Assessment Respiratory Assessment - ventilating expert: Respiratory Tract Infection Hx - ventilating expert Hx Respiratory Tract Infection No 05/25/25 10:04 STOP Sleep Apnea STOP Sleep Apnea - ventilating expert: STOP Sleep Apnea - ventilating expert Hx Hypertension Yes 05/25/25 10:04 Hx Sleep Apnea No 05/25/25 10:04 CPAP No 02/24/24 11:16 BIPAP Do you snore loudly (louder No 05/25/25 10:04 than talking or can be heard Do you often feel tired/ No 05/25/25 10:04 fatigued/ sleepy during daytime? Has anyone observed you stop No 05/25/25 10:04 breathing during sleep? STOP Results Negative 05/25/25 10:04 QUESTION #5 FULL TEXT : Do you snore loudly (louder than talking or can be heard through closed doors)? 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 Specify any problems Hx of Preganancy in last 3 No 05/25/25 10:04 Months Nurse Filling Out Transfusion [facility] 05/25/25 10:04 & Questions: Date: 05/25/25 05/25/25 10:04 Time: 10:10 05/25/25 10:04 Patient unable to answer at this time (ie. confused, unrespo /Reproduction History /Reproductive History - ventilating expert: /Reproductive Hx- ventilating expert Hx Now No 05/25/25 10:04 Gestational Age (in weeks): EDC: Hx Hx Para Hx Section SAB No 05/25/25 10:04 Active Medications Active Medications: Current Medications Generic Name Dose Route Start Last Admin Trade Name Subhash PRN Reason Stop Dose Admin Indocyanine Green 3.75 mg/ N/A 1.5 mls @ 999 mls/hr 05/29/25 09:15 IV 05/29/25 09:16 PREOP ONE Cefotetan Disodium 2 gm/ 100 mls @ 200 mls/hr 05/29/25 09:15 Sodium Chloride IV 05/29/25 09:44 INTRAOP ONE Lactated Ringer's 1,000 mls @ 15 mls/hr 05/29/25 08:00 IV .Q48H ULICES PFSH Medical History Depression Anxiety High cholesterol History of stress test History of echocardiogram Cardiology follow-up encounter Wears contact lenses Wears glasses History of IBS Non-smoker Shortness of breath on exertion Hypertension Sleep apnea Fatigue Throat tightness Difficulty swallowing Anxiety and depression Heart murmur Hyperlipidemia High blood pressure Frequent headaches Anemia Home Medications ?Medication ?Instructions ?Recorded ?Last Taken ?Type rosuvastatin 5 mg tablet 5 mg PO DAILY #90 tabs 03/27 Unknown Rx escitalopram oxalate 5 mg tablet 5 mg PO DAILY #90 TAB LETS 04/12/25 Unknown Rx lisinopril 20 mg tablet See Rx Instructions .Route 0 04/24/25 Unknown Rx .COMPLEX #90 tabs Allergy/AdvReac Type Severity Reaction Status Date / Time No Known Allergies Allergy Verified 05/25/25 10:03 Family History Mother Anxiety Depression Breast cancer Heart disease Hypertension Father Cancer Melanoma Diabetes Heart disease Brother Cancer Hodgkin lymphoma Grandmother Breast cancer Sister Asthma Surgical History Hx of tubal ligation History [...] do you feel safe at home: Yes Review of Systems (Anesthesia) ROS Narrative System reviewed and no additional complaints, except as documented. 05/29/25 0754 <Electronically signed by Donnie Zendejas MD > Date _ Donnie Murphy Signature: Date CC: ~ Signed [facility] Work Phone: 1(994) 400-235207-07-2025 Consult note [facility] Medical Records Department [address] [place] [address] Anesthesia Postop Eval I 05/29/25 0854 MR#: [id number] Acct: [id number] Name: CARLA ANDERSON Rep #:[id number] : 1970 55 From: Graeme Mccormack CRNA PCP: Dr. Leah Salvador MD Status:REG [facility] Y Race: C Location: [place] [address] Anesthesia: Postop Eval I Current Vital Signs Temperature: 97 F Pulse Rate: 99 Blood Pressure: 111/79 Respiratory Rate: 16 Pulse Ox: 100 Oxygen Delivery Method: Room Air Assessment Airway patent: Yes Spontaneous unlabored respirations: Yes Mental status: Awake nausea: No Vomiting: No Anesthesia Complication: No Fluid Hydration Crystalloid volume administer (ml): 1,000 Total IV fluid infused: 1,000 Progress Note Anesthesia document: Postop Eval 1 completed: Yes 05/29/25 0855 n JIG AND FIXTURE BUILDER APPRENTICE> Date _ Graeme Mccormack JIG AND FIXTURE BUILDER APPRENTICE Cosigner Signature: Date CC: ~ Signed [facility]07-07-2025 History and physical note [facility] Medical Records Department [address] [place] [address] History & Physical Exam 05/29/25 0838 MR#: [id number] Acct: [id number] Name: CARLA ANDERSON Rep #:[id number] : 1970 55 From: Omar longoria MD PCP: Dr. Leah Salvador MD Status:[facility] Location: [place] [address] History and Physical Date of Admission: 05/29/25 Intake Vital Signs 04/06/2510:05 05/23/2513:44 Height 5 ft 8 in 5 ft 8 in Weight: 220 lb 229 lb BMI 33.4 34.8 BP 118/80 134/79 H Blood Pressure Location Lt brachial Rt brachial Position Sitting Sitting Respiration 16 17 Pulse 71 66 Pulse Source Monitor Monitor Temp 98.7 F Temp Source Temporal Pulse Oximetry (%) 99 98 Oxygen Delivery Method room air room air Intake Visit Reasons: ABNORMAL HIDA Chief Complaint: abnormal hida Is patient in pain?: No Allergies No Known Allergies Allergy (Verified 05/23/25 13:45) Medications ?Medication ?Instructions ?Recorded ?Confirmed ?Type rosuvastatin 5 mg tablet 5 mg PO DAILY #90 tabs 03/27/25 05/23/25 Rx escitalopram oxalate 5 mg tablet 5 mg PO DAILY #90 TABLETS 04/12/2505/23 Rx lisinopril 20 mg tablet See Rx Instructions .Route 04/24/25 05/23/25 Rx .COMPLEX #90 tabs PFSH Medical History Wears contact lenses Wears [...] loop electrosurgical excision procedure (LEEP) Family History (Updated 05/23/25 @ 13:44 by Teresa Mckeon) Mother Anxiety Depression Breast cancer Heart disease HypertensionFather Cancer Melanoma Diabetes Heart diseaseBrother Cancer Hodgkin lymphomaGrandmother Breast cancerSister Asthma Social History household members: spouse current occupational [...] feel safe at home: Yes HPI HPI HPI: Patient is a 54-year-old female here with right upper quadrant pain that radiates to the back and the right shoulder. She says this happens in episodes. She says greasy foods bring it on. She does not have attacks every day she said they are few times a month. ROS General General: Yes fatigue; No weight change, appetite, colon cancer, breast cancer or weakness HEENT HEENT: No difficulty swallowing, eye injury, eye surgery, swollen glands or hoarseness Endo Endocrine: No thyroid disease, diabetes mellitus, thyroid cancer, Hair loss, heat intolerance or cold intolerance Skin Skin: No rash or changing moles Musc Musculoskeletal: No back problems, arthritis, rheumatoid arthritis, gout or joint pain Cardio Cardiovascular: Yes murmur and high blood pressure; No pacemaker, heart disease, atrial fibrillation, heart attack, heart stent, palpitations, shortness of breath with exertion or chest pain Psych Psychiatric: Yes depression and anxiety; No hearing voices Resp Respiratory: No shortness of breath, No sleep apnea, No cough, No COPD, No asthma, No emphysema andNo wheezing Gastro Gastrointestinal: No abdominal pain, Yes nausea or vomiting, Yes diarrhea, No constipation, No blood in stool, Yes acid reflux, No hemorrhoids, No ulcers, Yesgallbladder problem and No black,tarry stools Flash Hematologic: No blood thinners, No blood disorders, No bleeding, No anemia and No blood clots Neuro Neurologic: No system reviewed and no additional complaints, except as documented, No as per HPI, No abnormal gait, No abnormal hearing, No abnormal movements, No abnormal speech, No behavioral changes, No burning sensations, No confusion, No convulsions, No disequilibrium, No dizziness, No localized weakness, No frequent falls, No headache(s), No lack of coordination, No loss ofvision, No memoryloss, No numbness, No other visual disturbances, No radicular pain, No restless legs, No sensory deficit, No syncope, No tingling, No tremor(s), No weakness and No other Exam Const General: cooperative Orientation: alert and oriented x3 HENMT Head: normal to inspection Neck Neck: normal visual inspection and full ROM Chest Chest palpation & inspection: normal inspection of the chest Resp Effort & Inspection: normal respiratory effort Auscultation: clear to auscultation bilaterally Cardio Rate: regular rate Rhythm: regular rhythm GI Inspection: non-distended Palpation: soft and nontender Skin General: no rashes or lesions noted Neuro General: patient alert and patient oriented x3 Extrem General: full ROM Psych Appearance: grossly normal Mental Status: mental status grossly normal Assessment and Plan Assessment and Plan (1) Nonfunctioning gallbladder: Status: Acute Plan: The patient has biliary dyskinesia with an ejection fraction of 15%. I discussed robotic assisted laparoscopic cholecystectomy. I discussed the procedure in detail with the patient. I discussed the risks, benefits, and alternatives of the procedure. I discussed the risks including but not limited to bleeding, infection, injury to surrounding organs such as the liver, bile duct, bowels. I did discuss the possibility of having to convert to an open procedure as well as the possibility that if anyinjuries occurred this may necessitate further surgery at a tertiary care center. Omar Guardado MD Pager: [facility] [address] [place] [address], [address] [place] [address] Office: I have examined the patient and the H&P has been reviewed. There are no clinicalchanges since date of exam. 05/29/25 0804 Cosigner Signature (if applicable): CC: Dr. Leah Salvador MD; Dr. Omar Guardado MD~ Signed [facility]07-07-2025 Consult note [facility] Medical Records Department [address] [place] [address] Pre-Anesthesia Evaluation 05/29/25 0753 MR#: [id number] Acct: [id number] Name: CARLA ANDERSON Rep #:[id number] : 1970 55 From: Donnie Zendejas MD PCP: Dr. Leah Salvador MD Status:REG SDC Y Race: C Location: [place] [address] ASA Classification* ASA Classification ASA Classification: 2 Assessment & Plan Anesthesia* Anesthesia Assessment Anesthesia Assessment: Discussed sedation and/or anesthesia options, risks, benefits, and alternatives with patient/parents/legal guardian/POA. Questions invited. The patient/parents/legal guardian/POA seems to understand and agrees to proceedwith anesthesia plan. Reviewed the physical assessment, medical history, allergy history and patient home medications list prior to surgery/procedure/anesthetic and documented any changes. Performed airway and anesthesia risk assessments. Anesthesia Type Anesthesia Type: General Anesthesia Focused Assessment* Airway Assessment Mouth opens: >3 cm Mallampati Score: II Labs Anesthesia Preop lab: CBC WBC 7.2 K/mm3 (4.4-11.0) 04/06/25 11:04 04/06/25 RBC 4.97 M/mm3 (4.2-5.4) 04/06/25 11:04 04/06/25 Hgb 14.2 g/dL (12.0-15.0) 04/06/25 11:04 04/06/25 Hct 42.7 % (37-47) 04/06/25 11:04 04/06/25 Plt Count 266 K/mm3 (150-450) 04/06/25 11:04 04/06/25 CHEMISTRY Potassium 4.7 mmol/L (3.3-5.1) 04/06/25 11:04 04/06/25 Sodium 137 mmol/L (133-145) 04/06/25 11:04 04/06/25 BUN 8 mg/dL (4-19) 04/06/25 11:04 04/06/25 Creatinine 0.58 mg/dL (0.70-1.20) L 04/06/25 11:04 Glucose 88 mg/dL (70-99) 04/06/25 11:04 04/06/25 TSH 1.15 uIU/mL (0.358-3.74) 02/24/24 14:30 COAG PT 13.0 SECONDS (11.7-14.9) 11/28/24 14:10 Pre-Assessment Diagnosis/Proposed Procedure Planned Operative Procedure(s): Robotic Cholecystectomy Anesthesia History Anesthesia History - ventilating expert: Anesthesia History - ventilating expert Hx Hospitalization No 05/25/25 10:04 Any Problems With Anesthesia No 05/25/25 10:04 Cholinesterase deficiency No 05/25/25 10:04 You/Your Family Experience No 05/25/25 10:04 fever (hyperthermia) with Relationship Recent Exposure to Contagious No 02/24/24 11:16 Disease Does patient have nerve No 05/25/25 10:04 stimulator Patient instructed to have device shut off --Does patient have Pacemaker or ICD? When Was Last Pacemaker Check QUESTION #4 FULL TEXT: You/Your Family Experience fever (hyperthermia) with Anesthesia Last Oral Intake Last Oral intake: Last Oral Intake NPO since Meds taken in AM with sips of water? Meds patient instructed to take am of surgery PONV PONV - ventilating expert: PONV - ventilating expert Female Yes 05/25/25 10:04 HX of Motion Sickness Yes 05/25/25 10:04 HX of N/V After Surgery No 05/25/25 10:04 Non-Smoker Yes 05/25/25 10:04 Duration of Surgery greater Yes 05/25/25 10:04 than 60 minutes Number of Risk Factors 4 05/25/25 10:04 PONV Score Severe Risk 05/25/25 10:04 Height & Weight Height & Weight: Anesthesia: Height & Weight Height 5 ft 8 in 05/23/25 13:44 Respiratory Assessment Respiratory Assessment - ventilating expert: Respiratory Tract Infection Hx - ventilating expert Hx Respiratory Tract Infection No 05/25/25 10:04 STOP Sleep Apnea STOP Sleep Apnea - ventilating expert: STOP Sleep Apnea - ventilating expert Hx Hypertension Yes 05/25/25 10:04 Hx Sleep Apnea No 05/25/25 10:04 CPAP No 02/24/24 11:16 BIPAP Do you snore loudly (louder No 05/25/25 10:04 than talking or can be heard Do you often feel tired/ No 05/25/25 10:04 fatigued/ sleepy during daytime? Has anyone observed you stop No 05/25/25 10:04 breathing during sleep? STOP Results Negative 05/25/25 10:04 QUESTION #5 FULL TEXT : Do you snore loudly (louder than talking or can be heard through closeddoors)? 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 Specify any problems Hx of Preganancy in last 3 No 05/25/25 10:04 Months Nurse Filling Out Transfusion [facility] 05/25/25 10:04 & Questions: Date: 05/25/25 05/25/25 10:04 Time: 10:10 05/25/25 10:04 Patient unable to answer at this time (ie. confused, unrespo /Reproduction History /Reproductive History - ventilating expert: /Reproductive Hx- ventilating expert Hx Now No 05/25/25 10:04 Gestational Age (in weeks): EDC: Hx Hx Para Hx Section SAB No 05/25/25 10:04 Active Medications Active Medications: Current Medications Generic Name Dose Route Start Last Admin Trade Name Freq PRN Reason Stop Dose Admin Indocyanine Green 3.75 mg/ N/A 1.5 mls @ 999 mls/hr 05/29/25 09:15 IV 05/29/25 09:16 PREOP ONE Cefotetan Disodium 2 gm/ 100 mls @ 200 mls/hr 05/29/25 09:15 Sodium Chloride IV 05/29/25 09:44 INTRAOP ONE Lactated Ringer's 1,000 mls @ 15 mls/hr 05/29/25 08:00 IV .Q48H ULICES PFSH Medical History Depression Anxiety High cholesterol History of stress test History of echocardiogram Cardiology follow-up encounter Wears contact lenses Wears glasses History of IBS Non-smoker Shortness of breath on exertion Hypertension Sleep apnea Fatigue Throat tightness Difficulty swallowing Anxiety and depression Heart murmur Hyperlipidemia High blood pressure Frequent headaches Anemia Home Medications ?Medication ?Instructions ?Recorded ?Last Taken ?Type rosuvastatin 5 mg tablet 5 mg PO DAILY #90 tabs 03/27 Unknown Rx escitalopram oxalate 5 mg tablet 5 mg PO DAILY #90 TAB LETS 04/12/25 Unknown Rx lisinopril 20 mg tablet See Rx Instructions .Route 0 04/24/25 Unknown Rx .COMPLEX #90 tabs Allergy/AdvReac Type Severity Reaction Status Date / Time No Known Allergies Allergy Verified 05/25/25 10:03 Family History Mother Anxiety Depression Breast cancer Heart disease Hypertension Father Cancer Melanoma Diabetes Heart disease Brother Cancer Hodgkin lymphoma Grandmother Breast cancer Sister Asthma Surgical History Hx of tubal ligation History [...] do you feel safe at home: Yes Review of Systems (Anesthesia) ROS Narrative System reviewed and no additional complaints, except as documented. 05/29/25 0754 > Date _ Donnie Weeman MD Cosigner Signature: Date CC: ~ Signed [facility]07-01-2025 Progress [facility] [address] [place] [address] OFFICE VISIT Date of Service: 05/23/25 MR#: [id number] Acct: [id number] Name: CARLA ANDERSON Rep #: [id number] : 1970 Provider: Dr. Priscilla Guardado MD Age/Sex: 54/F Location: [facility] Status: Signed Intake Vital Signs 04/06/25 10:05 05/23/25 13:44 Height 5 ft 8 in 5 ft 8 in Weight: 220 lb 229 lb BMI 33.4 34.8 BP 118/80 134/79 H Blood Pressure Location Lt brachial Rt brachial Position Sitting Sitting Respiration 16 17 Pulse 71 66 Pulse Source Monitor Monitor Temp 98.7 F Temp Source Temporal Pulse Oximetry (%) 99 98 Oxygen Delivery Method room air room air Intake Visit Reasons: ABNORMAL HIDA Chief Complaint: abnormal hida Is patient in pain?: No Allergies No Known Allergies Allergy (Verified 05/23/25 13:45) Medications ?Medication ?Instructions ?Recorded ?Confirmed ?Type rosuvastatin 5 mg tablet 5 mg PO DAILY #90 tabs 03/2705/23/25 Rx escitalopram oxalate 5 mg tablet 5 mg PO DAILY #90 TAB LETS 04/12/25 05/23/25 Rx lisinopril 20 mg tablet See Rx Instructions .Route 0 04/24/25 05/23/25 Rx .COMPLEX #90 tabs PFSH Medical History Wears contact lenses Wears [...] loop electrosurgical excision procedure (LEEP) Family History (Updated 05/23/25 @ 13:44 by Teresa Mckeon) Mother Anxiety Depression Breast cancer Heart disease Hypertension Father Cancer Melanoma Diabetes Heart disease Brother Cancer Hodgkin lymphoma Grandmother Breast cancer Sister Asthma Social History household members: spouse current occupational [...] feel safe at home: Yes HPI HPI HPI: Patient is a 54-year-old female here with right upper quadrant pain that radiates to the back and the right shoulder. She says this happens in episodes. She says greasy foods bring it on. She does not have attacks every day she said they are few times a month. ROS General General: Yes fatigue; No weight change, appetite, colon cancer, breast cancer or weakness HEENT HEENT: No difficulty swallowing, eye injury, eye surgery, swollen glands or hoarseness Endo Endocrine: No thyroid disease, diabetes mellitus, thyroid cancer, Hair loss, heat intolerance or cold intolerance Skin Skin: No rash or changing moles Musc Musculoskeletal: No back problems, arthritis, rheumatoid arthritis, gout or joint pain Cardio Cardiovascular: Yes murmur and high blood pressure; No pacemaker, heart disease, atrial fibrillation, heart attack, heart stent, palpitations, shortness of breath with exertion or chest pain Psych Psychiatric: Yes depression and anxiety; No hearing voices Resp Respiratory: No shortness of breath, No sleep apnea, No cough, No COPD, No asthma, No emphysema andNo wheezing Gastro Gastrointestinal: No abdominal pain, Yes nausea or vomiting, Yes diarrhea, No constipation, No blood in stool, Yes acid reflux, No hemorrhoids, No ulcers, Yesgallbladder problem and No black,tarry stools Flash Hematologic: No blood thinners, No blood disorders, No bleeding, No anemia and No blood clots Neuro Neurologic: No system reviewed and no additional complaints, except as documented, No as per HPI, No abnormal gait, No abnormal hearing, No abnormal movements, No abnormal speech, No behavioral changes, No burning sensations, No confusion, No convulsions, No disequilibrium, No dizziness, No localized weakness, No frequent falls, No headache(s), No lack of coordination, No loss ofvision, No memoryloss, No numbness, No other visual disturbances, No radicular pain, No restless legs, No sensory deficit, No syncope, No tingling, No tremor(s), No weakness and No other Exam Const General: cooperative Orientation: alert and oriented x3 HENMT Head: normal to inspection Neck Neck: normal visual inspection and full ROM Chest Chest palpation & inspection: normal inspection of the chest Resp Effort & Inspection: normal respiratory effort Auscultation: clear to auscultation bilaterally Cardio Rate: regular rate Rhythm: regular rhythm GI Inspection: non-distended Palpation: soft and nontender Skin General: no rashes or lesions noted Neuro General: patient alert and patient oriented x3 Extrem General: full ROM Psych Appearance: grossly normal Mental Status: mental status grossly normal Assessment and Plan Assessment and Plan (1) Nonfunctioning gallbladder: Status: Acute Plan: The patient has biliary dyskinesia with an ejection fraction of 15%. I discussed robotic assisted laparoscopic cholecystectomy. I discussed the procedure in detail with the patient. I discussed the risks, benefits, and alternatives of the procedure. I discussed the risks including but not limited to bleeding, infection, injury to surrounding organs such as the liver, bile duct, bowels. I did discuss the possibility of having to convert to an open procedure as well as the possibility that if anyinjuries occurred this may necessitate further surgery at a tertiary care center. Omar Guardado MD Pager: [facility] [address] [place] [address], [address] [place] [address] Office: Coding Level of Care Code Off vis,new,level 4 Diagnoses Nonfunctioning gallbladder K82.8 05/23/25 Alise carranza MD> Date _ Omar Guardado MD Cosigner Signature: Date (if applicable) CC: Dr. Leah Salvador MD ~ [facility] [id number] Progress note Author Omar Guardado [facility] Note Date/Time May 23, 2025 1:53p m [facility] [address] [place] [address] OFFICE VISIT Date of Service: 05/23/25 MR#: [id number] Acct: [id number] Name: CARLA ANDERSON Rep #: [id number] : 1970 Provider: Dr. Priscilla Guardado MD Age/Sex: 54/F Location: [facility] Status: Signed Intake Vital Signs 04/06/25 10:05 05/23/25 13:44 Height 5 ft 8 in 5 ft 8 in Weight: 220 lb 229 lb BMI 33.4 34.8 BP 118/80 134/79 H Blood Pressure Location Lt brachial Rt brachial Position Sitting Sitting Respiration 16 17 Pulse 71 66 Pulse Source Monitor Monitor Temp 98.7 F Temp Source Temporal Pulse Oximetry (%) 99 98 Oxygen Delivery Method room air room air Intake Visit Reasons: ABNORMAL HIDA Chief Complaint: abnormal hida Is patient in pain?: No Allergies No Known Allergies Allergy (Verified 05/23/25 13:45) Medications ?Medication ?Instructions ?Recorded ?Confirmed ?Type rosuvastatin 5 mg tablet 5 mg PO DAILY #90 tabs 03/2705/23/25 Rx escitalopram oxalate 5 mg tablet 5 mg PO DAILY #90 TAB LETS 04/12/25 05/23/25 Rx lisinopril 20 mg tablet See Rx Instructions .Route 0 04/24/25 05/23/25 Rx .COMPLEX #90 tabs PFSH Medical History Wears contact lenses Wears [...] loop electrosurgical excision procedure (LEEP) Family History (Updated 05/23/25 @ 13:44 by Teresa Mckeon) Mother Anxiety Depression Breast cancer Heart disease Hypertension Father Cancer Melanoma Diabetes Heart disease Brother Cancer Hodgkin lymphoma Grandmother Breast cancer Sister Asthma Social History household members: spouse current occupational [...] feel safe at home: Yes HPI HPI HPI: Patient is a 54-year-old female here with right upper quadrant pain that radiates to the back and the right shoulder. She says this happens in episodes. She says greasy foods bring it on. She does not have attacks every day she said they are few times a month. ROS General General: Yes fatigue; No weight change, appetite, colon cancer, breast cancer or weakness HEENT HEENT: No difficulty swallowing, eye injury, eye surgery, swollen glands or hoarseness Endo Endocrine: No thyroid disease, diabetes mellitus, thyroid cancer, Hair loss, heat intolerance or cold intolerance Skin Skin: No rash or changing moles Musc Musculoskeletal: No back problems, arthritis, rheumatoid arthritis, gout or joint pain Cardio Cardiovascular: Yes murmur and high blood pressure; No pacemaker, heart disease, atrial fibrillation, heart attack, heart stent, palpitations, shortness of breath with exertion or chest pain Psych Psychiatric: Yes depression and anxiety; No hearing voices Resp Respiratory: No shortness of breath, No sleep apnea, No cough, No COPD, No asthma, No emphysema and No wheezing Gastro Gastrointestinal: No abdominal pain, Yes nausea or vomiting, Yes diarrhea, No constipation, No blood in stool, Yes acid reflux, No hemorrhoids, No ulcers, Yesgallbladder problem and No black,tarry stools Flash Hematologic: No blood thinners, No blood disorders, No bleeding, No anemia and No blood clots Neuro Neurologic: No system reviewed and no additional complaints, except as documented, No as per HPI, No abnormal gait, No abnormal hearing, No abnormal movements, No abnormal speech, No behavioral changes, No burning sensations, No confusion, No convulsions, No disequilibrium, No dizziness, No localized weakness, No frequent falls, No headache(s), No lack of coordination, No loss ofvision, No memory loss, No numbness, No other visual disturbances, No radicular pain, No restless legs, No sensory deficit, No syncope, No tingling, No tremor(s), No weakness and No other Exam Const General: cooperative Orientation: alert and oriented x3 HENMT Head: normal to inspection Neck Neck: normal visual inspection and full ROM Chest Chest palpation & inspection: normal inspection of the chest Resp Effort & Inspection: normal respiratory effort Auscultation: clear to auscultation bilaterally Cardio Rate: regular rate Rhythm: regular rhythm GI Inspection: non-distended Palpation: soft and nontender Skin General: no rashes or lesions noted Neuro General: patient alert and patient oriented x3 Extrem General: full ROM Psych Appearance: grossly normal Mental Status: mental status grossly normal Assessment and Plan Assessment and Plan (1) Nonfunctioning gallbladder: Status: Acute Plan: The patient has biliary dyskinesia with an ejection fraction of 15%. I discussed robotic assisted laparoscopic cholecystectomy. I discussed the procedure in detail with the patient. I discussed the risks, benefits, and alternatives of the procedure. I discussed the risks including but not limited to bleeding, infection, injury to surrounding organs such as the liver, bile duct, bowels. I did discuss the possibility of having to convert to an open procedure as well as the possibility that if any injuries occurred this may necessitate further surgery at a tertiary care center. Omar Guardado MD Pager: [facility] [address] [place] [address], [address] [place] [address] Office: Coding Level of Care Code Off vis,new,level 4 Diagnoses Nonfunctioning gallbladder K82.8 05/23/25 2739 <Electronically signed by Omar carranza MD> Date _ [facility] Signature: Date (if applicable) CC: Dr. Leah Salvador MD ~ [facility] Work Phone: 1(854) 982-549706-19-2025 Nuclear medicine Diagnostic study note [facility] [address] [place], [place] [id number] Hepatobilliary Img w/Pharm Int MR#: [id number] Acct: [id number] Name: CARLA ANDERSON Rep #: [id number] : 1970 F 54 From: Nicho Sommer MD PCP: Dr. Leah Salvador MD Status: REG CLI Study:Hepatobilliary Img w/Pharm Int Date of Exam: 05/11/25 Exam# [id number] Ordering Dr: Servando Blank PROCEDURE: HEPATOBILLIARY IMG W/PHARM INT 05/11/2025 REASON FOR EXAM: RUQ PAIN TECHNIQUE: Intravenous Choletec with planar imaging of the abdomen. 2 mcg Kinevac intravenously approximately 60 minutes after the radiopharmaceutical with additional anterior imaging and a region of interest drawn around the gallbladder to calculate a time-activity curve. RADIOPHARMACEUTICAL: Mebrofenin DOSE 5.6mCi COMPARISON: Prior ultrasound dated August 30, 2024. FINDINGS: There is good uptake of the radiopharmaceutical by the liver. Normal gallbladder visualization with the gallbladder identified by 30 minutes. Gallbladder Ejection Fraction: 15 % (Normal is >35%) NM/Hepatobilliary Img w/Pharm Int IMPRESSION: Abnormal gallbladder ejection fraction. Reading Location: [facility] CC: Dr. Leah Salvador MD; NELSON Giraldo ~ Addiction Psychiatrist: Signed [place] [id number] Evaluation note* Diagnosis Onset Date Resolution Status Admit Date Obesity acute April 06, 2025 9:44am Right upper quadrant abdomin al pain acute April 06, 2025 9 :44am Nonfunctioning gallbladder acute May 23, 2025 1:32pm [facility] Work Phone: 1(790) 571-843105-15-2025 [facility] [address] [place] [address] [place] [address] OFFICE VISIT Date of Service: 04/06/25 MR#: [id number] Acct: [id number] Name: CARLA ANDERSON Rep #: [id number] : 1970 Provider: NELSON Giraldo Age/Sex: 54/F [facility] [facility] Status: Signed Intake Vital Signs 01/24/25 10:44 [...] UPPER RT SIDE PAIN Chief Complaint: fu Orthopaedic Technologist Required: No Is patient in pain?: Yes [...] tablet 20 mg PO BID #30 tabs 05/15/ 25 05/15/25 Rx Nurse's Note: Pt still having intermittent RUQ pain, was addressed w/ Dr. Salvador. due to theER visit in 08/2024 advised could be biliary colic, pt did nto want addition testing at time of last OV. Pt states it ishappening more frequent. States tends to happen when [...] pressure which is not longer helping. [facility] Medical History Wears contact lenses Wears [...] at the same time nothing persistent or con sistent. She had a history of some IBS when she was in high school but nothing after She does not currently take supplements or probiotics She states that the past few days she has tried to be drinking more water. She admits that she is apretty big pop drinker. ROS Const Constitutional: No [...] oriented x3 Limitations: mental status not altered [facility] Head: normocephalic and atraumatic Ears: hearing [...] out acute cholecystitis patient is to continueto monitorfor fevers, chills, worsening right upper quadrant pains, [...] serious comorbidity Body mass index: BMI 33.0-33.9 QualifiedCode(s): E66.9 - Obesity,unspecified; Z68.33 - Body mass index [BMI] 33.0-33.9, adult Plan: Patient has been on semaglutide now for quite a while. She states initially she lost the weight butstates that she has been pretty stagnant without [...] PO BID 30 tabs 0RF 04/06/25 1104 PA PA> Date _ Dony DAMON Cosigner Signature: Date (if applicable) CC: ~ [facility] [facility] Progress note Author Dony Blank [facility] Note Date/Time April 06, 2025 11:04 am [facility] [address] [place], [place] [id number] OFFICE VISIT Date of Service: 04/06/25 MR#: [id number] Acct: [id number] Name: CARLA ANDERSON Rep #: [id number] : 1970 Provider: NELSON Giraldo Age/Sex: 54/F [place] [facility] Status: Signed Intake Vital Signs 01/24/25 10:44 [...] UPPER RT SIDE PAIN Chief Complaint: fu Orthopaedic Technologist Required: No Is patient in pain?: Yes [...] pressure which is not longer helping. [facility] Medical History Wears contact lenses Wears [...] oriented x3 Limitations: mental status not altered HENMT Head: normocephalic and atraumatic Ears: hearing grossly [...] Cosigner Signature: Date (if applicable) CC: ~ [facility] Work Phone: 1(672) 306-243603-04-2025 Evaluation note* Diagnosis Onset Date Resolution Status Admit Date Asthma acute January 24 10:41am Essential hypertension acute [facility] 2024 10:41am RUQ abdominal pain noneactive January 24, 2025 10:41am Right sided sciatica noneactive [facility] 2024 10:41am Moderate major depression noneactive January 24, 2025 10:41am Intermittent chest pain noneactive [facility] 2024 10:41am Type 2 diabetes mellitus noneactive January 24, 2025 10:41am Obesity (BMI 30-39.9) noneactive [facility] 2024 10:41am Obesity acute April 06, 2025 9:44am Right upper quadrant abdomin al pain acute April 06, 2025 9 :44am [facility] Work Phone: 1(159) 237-947103-04-2025 Evaluation note* Diagnosis Onset Date Resolution Status Admit Date Asthma acute January 24 10:41am Essential hypertension acute [facility] 2024 10:41am RUQ abdominal pain noneactive January 24, 2025 10:41am Right sided sciatica noneactive [facility] 2024 10:41am Moderate major depression noneactive January 24, 2025 10:41am Intermittent chest pain noneactive [facility] 2024 10:41am Type 2 diabetes mellitus noneactive January 24, 2025 10:41am Obesity (BMI 30-39.9) noneactive [facility] 2024 10:41am Obesity acute April 06, 2025 9:44am Right upper quadrant abdomin al pain acute April 06, 2025 9 :44am Nonfunctioning gallbladder acute May 23, 2025 1:32pm [facility] Work Phone: [phone] NotePap Smear Specimen AdequacyMay 2021 12:00pmCommentSatisfactory for evaluation. Endocervical and/or squamous metaplasticcells (endocervical component)are present.[facility][id number] Work Phone: Comment on above:Satisfactory for evaluation. Endocervical and/or squamous metaplasticcells (endocervical component)are present.04-01-2022 NotePap Smear Specimen AdequacyMay 2021 12:00pmComment Satisfactory for evaluation. Endocervical and/or squamous metaplasticcells (endocervical component)are present.[facility] A#[id number] City [facility] Work Phone: Comment on above:Satisfactory for evaluation. Endocervical and/or squamous metaplasticcells (endocervical component)are present.Evaluation note* Diagnosis Onset Date Resolution Status Asthma acute Obesity acute Asthma acute [facility] Work Phone: Evaluation note* Diagnosis Onset Date [...] neactive Headache noneactive Left knee pain noneactive [facility] Work Phone: Evaluation note* Diagnosis Onset Date Resolution Status Asthma acute Essential hypertension acute Moderate major depression no neactive Urinary frequency noneactive Obesity (BMI 30.0-34.9) none active Vitamin D deficiency noneact chapis [facility] Work Phone: Evaluation note* Diagnosis Onset Date Resolution Status Asthma acute Essential hypertension acute Moderate major depression no neactive Urinary frequency noneactive Obesity (BMI 30.0-34.9) none active Vitamin D deficiency noneact chapis Asthma acute Essential hypertension acute Moderate major depression no neactive Mixed hyperlipidemia noneact chapis Obesity (BMI 30.0-34.9) none active Vitamin D deficiency noneact chapis [facility] Work Phone: Evaluation note* Diagnosis Onset Date Resolution Status Essential hypertension acute Fatigue acute Palpitations acute Anxiety and depression chron ic Hyperlipidemia chronic [facility] Work Phone: Reason for referral (narrative)No reason for referral information availableB[facility] Work Phone: Summary Purpose Family History Relationship Condition Age at Onset Recorded Date/T [...] Depression Unknown Malignant neoplasm of breast Unknown Cardiac disease Unknown Hypertension Unknown father Malignant neoplasm Unknown Diabetes mellitus Unknown brother Malignant neoplasm Unknown Hodgkin lymphoma Unknown grandmother Malignant neoplasm of breast Unknown sister Asthma Unknown Advance Directives Advance Directive Response Recorded Date/ Time Living Will No May 07, 2021 9:38am Power of Supervisory Examiner No May 07 9:38am Advance Directive Response Recorded Date/ Time Living Will No May 07, 2021 8:38am Power of Supervisory Examiner No May 07 8:38am Advance Directive Response Recorded Date/ Time Living Will No February 24, 2024 11:16am Power of Supervisory Examiner No February 23 11:16am Advance Directive Response Recorded Date/ Time Advance Directives No December 06, 2024 8:07am Advance Directive Response Recorded Date/ Time Do you have a Healthcare Power of Supervisory Examiner? 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 MURMUR Amb [...] and depression Hyperlipidemia Chief Complaint Admit Date January 24, 2025 10:4 1am UPPER RT [...] quadrant abdominal pain April 06, 2025 9:44am Chief Complaint Admit Date January 24, 2025 10:4 1am UPPER RT SIDE PAIN April 06, 2025 9:44a m RUQ PAIN May 11, 2025 9:31 am Chief Complaint Admit Date January 24, 2025 10:4 1am UPPER RT SIDE PAIN April 06, 2025 9:44a m RUQ PAIN May 11, 2025 9:31 am ABNORMAL HIDA May 23, 2025 1:32p m Reason for Visit Admit Date Asthma January 24, 2025 10:4 1am Essential hypertension January 24, 2025 1 0:41am RUQ abdominal pain January 24, 2025 10:4 1am Right sided sciatica March 4th, 2025 10: 41am Moderate major depression January 24 10:41am Intermittent chest pain January 24, 2025 10:41am Type 2 diabetes mellitus January 24, 2025 10:41am Obesity (BMI 30-39.9) January 24, 2025 10 :41am Obesity April 06, 2025 9:44a m Right upper quadrant abdominal pain April 06, 2025 9:44am Nonfunctioning gallbladder May 23 1:32pm Chief Complaint Admit Date UPPER RT SIDE PAIN April 06, 2025 9:44a m RUQ PAIN May 11, 2025 9:31 am ABNORMAL HIDA May 23, 2025 1:32p m Robotic Cholecystectomy May 29, 2025 7 :38am Robotic Cholecystectomy May 29, 2025 8 :38am Reason for Visit Admit Date Obesity April 06, 2025 9:44a m Right upper quadrant abdominal pain April 06, 2025 9:44am Nonfunctioning gallbladder May 23 1:32pm Additional Source Comments INFORMATION SOURCE (unrecogn ized section and content) DATE CREATED AUTHOR 11/22/2019 [facility] DATE CREATED AUTHOR AUTHOR'S ORGANIZ ATION 05/27/2025 [facility] Goals (unrecognized section and content) Goals may [...] Primary Care Provider, Referri ng Provider Active Dony DAMON PA Attending Provider Active Team Status: Inactive Member Role Status Dates Dr. Leah Salvador MD Primary Care Provider Active Dony DAMON PA Attending Provider, Referring Prov ider Active Team [...] End: April 06, 2025 Dony DAMON PA Attending Provider Active St art: April 06, 2025 End: April 06, 2025 Team Status: Active Member Role Status Dates Dr. Leah Salvador MD Primary Care Provider Active Start: April 06, 2025 Dony DAMON PA Attending Provider Active St art: April 06, 2025 Dony DAMON, PA Referring Provider Active St art: April 06, 2025 Team Status: Inactive Member Role Status Dates Dr. Leah Salvador MD Primary Care Provider Active Start: April 06, 2025 End: April 06, 2025 Dony DAMON PA Attending Provider Active St art: April 06, 2025 End: April 06, 2025 Dony Blank PA, PA Referring Provider Active St art: April 06, 2025 End: April 06, 2025 Team Status: Inactive Member Role Status Dates Dr. Leah Salvador MD Primary Care Provider Active Start: May 11, 2025 End: May 11, 2025 Dony Blank PA, PA Attending Provider Active St art: May 11, 2025 End: May 11, 2025 Dony Blank PA, PA Referring Provider Active St art: May 11, 2025 End: May 11, 2025 Team Status: Inactive Member Role/Relationship Status Dates Dr. Leah Salvador MD Primary Care Provider Active Start: January 24, 2025 End: January 24, 2025 Dr. Leah Salvador MD Attending Provider Active Start: January 24, 2025 End: January 24, 2025 Dr. Leah Salvador MD Referring Provider Active Start: January 24, 2025 End: January 24, 2025 Team Status: Inactive Member Role/Relationship Status Dates Dr. Leah Salvador MD Primary Care Provider Active Start: April 06, 2025 End: April 06, 2025 Dr. Leah Salvador MD Referring Provider Active Start: April 06, 2025 End: April 06, 2025 Dony DAMON PA Attending Provider Active St art: April 06, 2025 End: April 06, 2025 Team Status: Inactive Member Role/Relationship Status Dates Dr. Leah Salvador MD Primary Care Provider Active Start: April 06, 2025 End: April 06, 2025 Dony DAMON PA Attending Provider Active St art: April 06, 2025 End: April 06, 2025 Dony DAMON PA Referring Provider Active St art: April 06, 2025 End: April 06, 2025 Team Status: Inactive Member Role/Relationship Status Dates Dr. Leah Salvador MD Primary Care Provider Active Start: May 11, 2025 End: May 11, 2025 Dony DAMON PA Attending Provider Active St art: May 11, 2025 End: May 11, 2025 Dony DAMON PA Referring Provider Active St art: May 11, 2025 End: May 11, 2025 Team Status: Inactive Member Role/Relationship Status Dates Dr. Leah Salvador MD Referring Provider Active Start: May 23, 2025 End: May 23, 2025 Dr. Omar Guardado MD Attending Provider Active Start: May 23, 2025 End: May 23, 2025 Team Status: Active Member Role/Relationship Status Dates Dr. Leah Salvador MD Primary Care Provider Active Team Status: Inactive Member Role/Relationship Status Dates Dr. Omar Guardado MD Attending Provider Active Start: May 29, 2025 End: May 29, 2025 Dr. Omar Guardado MD Referring Provider Active Start: May 29, 2025 End: May 29, 2025 Dr. Leah Salvador MD Primary Care Provider Active Start: May 29, 2025 End: May 29, 2025 Team Status: Active Member Role/Relationship Status Dates Dr. Omar Guardado MD Attending Provider Active Start: May 29, 2025 Dr. Omar Guardado MD Referring Provider Active Start: May 29, 2025 Dr. Omar Guardado MD Other Provider Active Start: May 29, 2025 Dr. Leah Salvador MD Primary Care Provider Active Start: May 29, 2025 FOR RECORDS PERTAINING TO PATIENTS WHO [...] BE BASED ON THE PRIMARY CLINICAL RECORDS. [facility] [employer] provides no warranty or guarantee of the accuracy or completeness of information in this document.
== END 2025-05-29 14:45 | disposition home or self-care (01) ==
LOC: SDC 07:38 → AC 07:39
PROVIDERS: PCP Internal Medicine; Referring Provider Surgery; Visit Provider Surgery
PROC: 0FT44ZZ Resection of Gallbladder, Percutaneous Endoscopic Approach (ICD-10-PCS; CPT 47562; principal; 2025-05-29 08:55)
DX: K82.4 Cholesterolosis of gallbladder (principal); K82.8 Other specified diseases of gallbladder; D36.0 Benign neoplasm of lymph nodes; I10 Essential (primary) hypertension; E78.00 Pure hypercholesterolemia, unspecified; Z79.899 Other long term (current) drug therapy
CPT/HCPCS: 47562; S2900; 00790; 88304; 93005; J2405

== ENCOUNTER → 2025-07-27 | Outpatient (CLI) | payer BC, SELFPAY ==
--- NOTE | 2025-07-27 14:50 | ADUUE_ITS ---
Reason For Study Reason For Study: Injury to artery RIGHT Radial artery mid, 0.22 x 0.21 cm. Radial artery mid, 109.5 cm/sec. Radial artery distal, 0.22 x 0.21 cm. Radial artery distal, 103 cm/sec. Ulnar artery distal, 0.17 x 0.18 cm. Ulnar artert distal, 104.3 cm/sec. Radial V, Ulnar V, and Cephalic V are compressible. Vascularized area noted at area of concern that measures 0.14 x 0.17 cm. Preliminary report given to Meggan SAINI. / Art Duplex Unilat UP Extrem Interpretation Summary Right upper extremity arteries patent with normal velocities and no evidence of stenosis. Right upper extremity veins patent and compressible. Vascularized area noted at area of concern that measures 0.14 x 0.17 cm with no communication with radial artery visualized. Ordering Physician: Diane Broderick Referring Physician: Leah Salvador Performed By: Natalia Nash RVT
== END | disposition home or self-care (01) ==
LOC: CVS 14:49
PROVIDERS: PCP Internal Medicine; Referring Provider Physician Assistant Medical; Visit Provider Physician Assistant Medical
DX: S55.101A Unspecified injury of radial artery at forearm level, right arm, initial encounter (principal); X58.XXXA Exposure to other specified factors, initial encounter
CPT/HCPCS: 93931

== ENCOUNTER 2025-08-09 10:48 | Outpatient (CLI) | payer BC, SELFPAY ==
--- NOTE | 2025-08-09 10:51 | ECHOD_ITS ---
Reason For Study Reason For Study: MURMUR Procedure This was a 2D Doppler, Color Flow transthoracic echocardiogram. Exam performed in department. Left Ventricle Normal LV size. Left ventricular systolic function is normal. The left ventricular ejection fraction is 65 %. No regional wall motion abnormalities noted. Right Ventricle Normal RV size. Normal systolic function. Atria Normal left atrium. Normal right atrium. Mitral Valve Normal mitral valve. Tricuspid Valve Normal tricuspid valve. Mild (1+) tricuspid valve insufficiency. Pulmonary artery systolic pressure is 26 mmHg. Aortic Valve Trisinus/trileaflet aortic valve. Pulmonic Valve Normal pulmonic valve. Great Vessels Normal aortic root. The pulmonary artery is normal size. Inferior vena cava collapse with respiration. Pericardium/Pleural No pericardial effusion. MMode/2D Measurements & Calculations LVIDd: 4.8 cm IVSd: 1.0 cm Ao root diam: 3.3 cm LVIDs: 2.8 cm LVPWd: 0.98 cm RVDd: 3.6 cm FS: 40.8 % LAV(MOD-bp): 50.5 ml LVAd ap4: 26.5 cm2 LVAd ap2: 26.1 cm2 LAV(MOD-bp) Indexed: 23.4 ml/m2 LVLd ap4: 7.2 cm LVLd ap2: 7.4 cm LAV(MOD-sp2): 52.4 ml EDV(MOD-sp4): 79.8 ml EDV(MOD-sp2): 79.1 ml LAV(MOD-sp4): 44.3 ml EDV(sp4-el): 82.5 ml EDV(sp2-el): 78.0 ml LVAs ap4: 13.0 cm2 LVAs ap2: 13.2 cm2 LVLs ap4: 5.6 cm LVLs ap2: 6.0 cm ESV(MOD-sp4): 26.4 ml ESV(MOD-sp2): 25.7 ml ESV(sp4-el): 25.8 ml ESV(sp2-el): 24.3 ml EF(MOD-sp4): 66.9 % EF(MOD-sp2): 67.5 % EF(sp4-el): 68.8 % SV(MOD-sp4): 53.4 ml SV(MOD-sp2): 53.4 ml SV(sp4-el): 56.7 ml SI(MOD-sp4): 24.7 ml/m2 SI(MOD-sp2): 24.8 ml/m2 LA A4 area: 16.9 cm2 LA dimension(2D): 3.3 cm RA A4 area: 14.0 cm2 TAPSE: 2.0 cm Time Measurements MV dec time: 0.25 sec Doppler Measurements & Calculations MV E max shimon: 105.8 cm/sec Lat Peak E' Shimon: 11.0 cm/sec Med Peak E' Shimon: 9.6 cm/sec MV A max shimon: 93.1 cm/sec E/E' lat: 9.6 E/E' med: 11.0 MV E/A: 1.1 MV V2 max: 116.5 cm/sec MV P1/2t max shimon: 116.5 cm/sec Ao V2 max: 156.9 cm/sec MV max P.4 mmHg MV P1/2t: 51.5 msec Ao max P.9 mmHg MV V2 mean: 62.3 cm/sec Ao V2 mean: 107.0 cm/sec MV mean P.9 mmHg MV dec slope: 662.1 cm/sec2 Ao mean P.3 mmHg MV V2 VTI: 34.3 cm MVA(P1/2t): 4.3 cm2 Ao V2 VTI: 35.0 cm AV (velocity ratio): 0.80 LV V1 max: 128.2 cm/sec PA V2 max: 124.3 cm/sec LV V1 max P.6 mmHg PA V2 mean: 91.9 cm/sec PI dec slope: 166.1 cm/sec2 LV V1 mean P.3 mmHg LV V1 mean: 82.6 cm/sec LV V1 VTI: 27.8 cm TR max shimon: 236.2 cm/sec TR max P.3 mmHg ECHO/Echo Complete Interpretation Summary Normal LV size. Left ventricular systolic function is normal. The left ventricular ejection fraction is 65 %. Structurally normal valves. Ordering Physician: Diane Broderick Referring Physician: Leah Salvador Performed By: Willow Medrano, ROLANDO, RVT
== END 2025-08-09 23:59 | disposition home or self-care (01) ==
LOC: CVS 10:50
PROVIDERS: PCP Internal Medicine; Referring Provider Physician Assistant Medical; Visit Provider Physician Assistant Medical
DX: R01.1 Cardiac murmur, unspecified (principal)
CPT/HCPCS: 93306

== ENCOUNTER 2025-09-14 12:09 | Day surgery (SDC) | payer BC, SELFPAY ==
[2025-09-14] VITALS (10 sets, daily range): BP systolic 137–159; BP diastolic 65–99; PULSE 61–75; RESP 15–16; TEMP 36.2–37.1; O2SAT 94–98; BMI 36.7
[2025-09-14] MEDS: 0.9% Normal Saline (500mL Bag) 500 ML 15 ML IV (12:42)
[2025-09-14] MEDS: Midazolam 2 MG/2 ML Syringe IV (13:36)
[2025-09-14] MEDS: 0.9% Normal Saline (1000mL) 400 ML IV (13:53)
[2025-09-14] MEDS: Cefazolin 1 GM/5 ML Vial 2 GM IV (14:48)
== END 2025-09-14 16:59 | disposition home or self-care (01) ==
LOC: SDC 12:10 → AC 12:11
PROVIDERS: PCP Internal Medicine; Referring Provider Surgery Trauma Surgery; Visit Provider Surgery Trauma Surgery
PROC: (CPT 35190; principal; 2025-09-14 13:45)
DX: I77.0 Arteriovenous fistula, acquired (principal); I10 Essential (primary) hypertension; E78.00 Pure hypercholesterolemia, unspecified; Z79.899 Other long term (current) drug therapy
CPT/HCPCS: 35190; 64415; 01840; A4648; J2405

== ENCOUNTER → 2025-10-12 | Outpatient (CLI) | payer BC, SELFPAY ==
--- NOTE | 2025-10-12 12:49 | ADUUE_ITS ---
Reason For Study Reason For Study: S/P Rt radial fistula ligation RIGHT Radial artery mid, 0.25 x 0.25 cm. Radial artery mid, 72.1 cm/sec. Radial artery distal, 0.25 x 0.25 cm. Radial artery distal, 54.8 cm/sec. Ulnar artery distal, 0.15 x 0.16 cm. Ulnar artert distal, 69.2 cm/sec. Radial V, Ulnar V, and Cephalic V are compressible. Superficial vein noted at area of bump at wrist that connects to radial vein. VL/US Art Duplex Unilat UP Extrem Interpretation Summary Right upper extremity vessels patent with normal flow pattern. No pseudoaneurysm or fistula identified. Ordering Physician: Ladan Barraza Referring Physician: Leah Salvador Performed By: Natalia Nash RVT
== END | disposition home or self-care (01) ==
LOC: CVS 12:48
PROVIDERS: PCP Internal Medicine; Referring Provider Physician Assistant; Visit Provider Physician Assistant
DX: I77.0 Arteriovenous fistula, acquired (principal)
CPT/HCPCS: 93931

== ENCOUNTER → 2025-11-22 | Outpatient (CLI) | payer BC, SELFPAY ==
--- OUTSIDE RECORDS SUMMARY | 2025-11-22 07:31 | XMS RPT_ITS | CCD ---
Author Organization [facility]ini[facility] Care Team Providers Care Surgical Specialist Name Role Phone Dr. Landry Bro Primary Care Provider [phone] Dr. Landry Bro Referring Provider [phone] Dr. Nick Staples Attending Provider Calli PERSONAL PROPERTY APPRAISER, CÉSAR Roldan Attending Provider Dr. Landry Bro Primary Care Provider [phone] Dr. Leah Salvador MD Attending Provider Madeleine ANGELO, Dr. Lynn Referring Provider Dony Morales Attending Provider [phone] Dony Morales Referring Provider [phone] Geo ANGELO, Dr. Nelson Attending Provider Madeleine ANGELO, Dr. Lynn Primary Care Provider [phone] Madeleine ANGELO, Dr. Lynn Referring Provider Geo ANGELO, Dr. Nelson Referring Provider Geo ANGELO, Dr. Nelson Other Provider [phone] Cristy ANGELO, Dr. Gonzalez Attending Provider [phone] Cristy ANGELO, Dr. Gonzalez Referring Provider [phone] Diane Jenkins Attending Provider [phone] Diane Jenkins Referring Provider [phone] Dr. Javier Christie MD Attending Provider [phone] Madeleine ANGELO, Dr. Lynn Primary Care Physician [phone] Dony Morales Attending Physician [phone] Dony Morales Referring Provider [phone] Madeleine ANGELO, Dr. Lynn Referring Provider Geo ANGELO, Dr. Nelson Attending Physician Cristy ANGELO, Dr. Gonzalez Attending Physician [phone] Geo ANGELO, Dr. Nelson Nurse Practitioner [phone] Diane Jenkins Attending Physician [phone] Dr. Javier Christie MD Attending Physician Madeleine, Leah Primary Care Unavailable Zap, Leah Referring Unavailable Ladan Barraza Attending Unavailable Zap, Leah Referring Unavailable Zap, Leah Primary Care Unavailable Madeleine, Leah Attending Unavailable Madeleine, Leah Primary Care Unavailable Carlos Muniz Attending Unavailable Cristy, Carlos Attending Unavailable Zap, Leah Primary Care Unavailable Cristy, [place] Referring Unavailable Calabretta, Omar Referring Unavailable CalabrettaOmar Attending Unavailable Madeleine, Leah Primary Care Unavailable Zap, Leah Primary Care Unavailable BarrazaTeLadan Referring Unavailable BarrazaTe hoodison Attending Unavailable Zap, Leah Primary Care Unavailable Zap, Leah Referring Unavailable Zap, Leah Attending Unavailable Shyam Valencia Referring Unavailable Shyam Valencia Attending Unavailable Madeleine, Leah Primary Care Unavailable Shahnaz Javier Attending Unavailable Madeleine, Leah Primary Care Unavailable Zap, Leah Primary Care Unavailable Cristy, [place] Referring Unavailable Cristy, Carlos Attending Unavailable Zap, Leah Primary Care Unavailable Concord, Javier Referring Unavailable ConcordJean-Pierreic Attending Unavailable Concord, Javier Consulting Unavailable Geo Omar Referring Unavailable CalOmar viera Attending Unavailable Calabretta Omar Consulting Unavailable Madeleine, Leah Primary Care Unavailable Madeleine, Leah Primary Care Unavailable Madeleine, Leah Referring Unavailable Joaquin Blankew Attending Unavailable Zap, Leah Primary Care Unavailable Madeleine, Leah Referring Unavailable Diane Jenkins Attending Unavail able Zap, Leah Primary Care Unavailable Zap, Leah Referring Unavailable Zap, Leah Attending Unavailable Madeleine, Leah Primary Care Unavailable Wayt, Dony Referring Unavailable WaytJoaquinew Attending Unavailable Madeleine, Leah Primary Care Unavailable Wayt, Dony Referring Unavailable Wayt Dony Attending Unavailable Zap, Leah Primary Care Unavailable Diane Jenkins Referring Unavail able Diane Jenkins Attending Unavail able Zap, Leah Primary Care Unavailable Diane Jenkins Referring Unavail able Diane Jenkins Attending Unavail able Madeleine, Leah Primary Care Unavailable Shahnaz, Javier Referring Unavailable Concord Javier Attending Unavailable Zap, Leah Referring Unavailable Shyam Valencia Attending Unavailable Madeleine, Leah Primary Care Unavailable Madeleine, Leah Primary Care Unavailable Madeleine, Leah Referring Unavailable ShahnazJean-Pierreic Attending Unavailable Omar Guardado Attending Unavailable Madeleine, Leah Primary Care Unavailable Leah Salvador Referring Unavailable Leah Salvador Primary Care Unavailable Leah Salvador Referring Unavailable Leah Salvador Attending Unavailable Medications Current Medications Medication Drug Class(es) Dates Sig (Normalized) Sig (Original) Multivitamin tablet (4 sources) Start: 07-06-2025 Multivitamin tablet Active 1 {tbl} PO daily July 06, 2025 12:00am Complies with drug therapy Start: 07-06-2025 Start: 07-06-2025 Multivitamin t ablet Active 1 {tbl} PO daily July 06, 2025 12:00am Completed/Discontinued Medications Medication Drug Class(es) Dates Sig [...] 1:49pm aluminum chloride 200 mg/ml topical solution (16 sources) Start: 05-01-2021 End: 10-14-2022 Aluminum Chloride 20 % solut ion Discontinued 1 NMA TOPICAL AT BEDTIME May 01, 2021 12:00am October 14, 2022 4:02pm Start: 05-01-2021 End: 10-14-2022 Aluminum Chloride Discontinu ed 1 APPLIC TOPICAL AT BEDTIME May 01, 2021 12:00am October 14, 2022 4:02pm atorvastatin 10 mg oral tablet (20 sources) HMG-CoA Reductase Inhibitor Start: 08-31-2023 End: [...] Start: 09-12-2022 take 1 puff(s) by mo ut twice daily Budesonide-Formoterol (Symbicort) 160-4. 5 mcg/actuation HFA aerosol inhaler Active 2 PUFF INHALATION TWICE A DAY September 12, 2022 2:21pm administer with spacer, rinse mouth after each use Start: 09-12-2022 take 1 puff(s) by mo ut twice daily Budesonide-Formoterol (Symbicort) 160-4. 5 mcg/actuation [...] Start: 01-09-2022 take 1 puff(s) by mo uth twice daily Budesonide-Formoterol (Symbicort) 160-4. 5 mcg/actuation HFA aerosol inhaler Active 2 PUFF INHALATION TWICE A DAY 1 January 09, 2022 7:55am administer with spacer, rinse mouth after each use Start: 12-18-2021 End: 01-09-2022 take 1 puff(s) by mouth twice daily Budesonide-Formoterol (Symbicort) 160-4. 5 mcg/actuation HFA aerosol inhaler Discontinued 2 PUFF INHALATION TWICE A DAY December 18, 2021 2:55pm January 09, 2022 [...] hydrochloride 150 mg extended release oral tablet (20 sources) Aminoketone Start: 08-31-2023 End: 04-20-2024 take [...] mg/ml / guaiFENesin 20 mg/ml oral solution (20 sources) Opioid Agonist Start: 12-17-2023 End: 02-24-2024 [...] sources) Serotonin Reuptake Inhibitor Start: 12-23-2023 End: 07-11-2025 take 1 tablet by mouth once daily Escitalopram Oxalate 5 mg tablet Discontinued 5 mg PO DAILY 90 0 April 12, 2025 7:54am July 11, 2025 8:26am Start: 08-31-2023 End: 12-23-2023 take 5 mg [...] 2022 3:01pm glycopyrrolate 1 mg oral tablet (16 sources) Start: 05-01-2021 End: 10-14-2022 take 1 tablet by mouth twice daily Glycopyrrolate 1 mg tablet Discontinued 1 mg PO TWICE A DAY May 01, 2021 12:00am October 14, 2022 4:03pm ibuprofen 200 mg oral capsule (20 sources) Nonsteroidal Anti-inflammatory Drug Start: 08-26-2022 End: 10-14-2022 take 1 tablet by mouth once daily Ibuprofen 800 mg tablet Discontinued 800 mg PO DAILY 7 0 August 26, 2022 12:00am October 14, 2022 [...] 12:00am June 13, 2020 4:19pm Leg Brace (Tonja Knee Brace) misc (20 sources) Start: 09-01-2022 End: 2024 Leg Brace (Tonja Knee Brace) m isc Discontinued 0 .Route 1 0 September 01, 2022 8:14am 2024 9:30am Left knee pain Pain in left knee As directed Start: 09-01-2022 End: 2024 Leg Brace (Tonja Knee Brace) m isc Discontinued 0 .Route 1 September 01, 2022 8:14am 2024 9:30am As directed Start: 09-01-2022 Leg Brace (Tonja Knee Brace) misc Active 0 .Route 1 September 01, 2022 8:14am As directed Start: 09-01-2022 Leg Brace (Tonja Knee Brace) misc Active 0 .Route 1 September 01, 2022 7:14am As directed Start: 08-26-2022 End: 09-01-2022 Leg Brace (Tonja Knee Brace) m isc Discontinued 0 .Route 1 August 26, 2022 12:00am September 01, 2022 8:14am Left knee pain Pain in left knee As directed Start: 08-26-2022 End: 09-01-2022 Leg Brace (Tonja Knee Brace) m isc Discontinued 0 .Route 1 August 26, 2022 12:00am September 01, 2022 8:14am As directed Start: 08-26-2022 End: 09-01-2022 Leg Brace (Tonja Knee Brace) m isc Discontinued 0 .Route August 25, 2022 11:00pm September 01, 2022 7:14am As directed 200 actuat levalbuterol 0.045 mg/actuat metered dose inhaler (16 sources) beta2-Adrenergic Agonist Start: 01-06-2022 End: 11-28-2024 Levalbuterol Tartrate 45 mcg/actuation HFA aerosol inhaler Discontinued 2 NMA INHALATION EVERY 6 HOURS 07 05January 06, 2022 1:00am November 28, 2024 2:06pm Start: 01-06-2022 Levalbuterol T artrate Active 2 INH INHALATION EVERY 6 HOURS January 06, 2022 1:00am lisinopril 20 mg oral tablet (20 sources) Angiotensin Converting Enzyme Inhibitor Start: 10-14-2022 End: 07-31-2025 take 1 tablet by mouth once daily Lisinopril 20 mg tablet Discontinued 0 .ROUTE .COMPLEX 90 0 April 24, 2025 11:15pm July 31, 2025 8:20am TAKE 1 TABLET BY MOUTH EVERY DAY meloxicam 15 mg oral tablet (14 sources) Nonsteroidal Anti-inflammatory Drug Start: 09-24-2022 End: 12-29-2022 take 1 tablet by mouth once daily Meloxicam 15 mg tablet Discontinued 15 mg PO DAILY 22 12September 24, 2022 12:00am December 29, 2022 2:35pm Primary osteoarthritis of both knees Bilateral primary osteoarthritis of knee Pain Do not take in conjunction with other NSAIDs. Tylenol is okay. Multivitamin With Minerals (Hair,Skin And Nails) tablet (9 sources) Start: 11-28-2024 End: 04-06-2025 Multivitamin With Minerals (Hair,Skin And Nails) tablet Discontinued 1 {tbl} PO daily November 28, 2024 1:00am April 06, 2025 10:04am omeprazole 40 mg delayed release oral capsule (16 sources) Proton Pump Inhibitor Start: 05-10-2020 End: 06-13-2020 take 1 capsule by mouth once daily Omeprazole 40 mg capsule,delayed release(DR/EC) Discontinued 40 mg PO DAILY 30 May 10, 2020 12:00am June 13, 2020 4:19pm oxyCODONE hydrochloride 5 mg oral tablet (5 sources) Opioid Agonist Start: 05-29-2025 End: 07-06-2025 take 5-10 mg by mouth every four hours as needed for pain Oxycodone 5 mg Tablet Discontinued 5 - 10 mg PO EVERY 4 HOURS NEEDED as needed for Pain Score 4-10 14 5 0 May 29, 2025 July 06, 2025 2:18pm Nonfunctioning gallbladder Other specified diseases of gallbladder rosuvastatin calcium 5 mg oral tablet (20 sources) HMG-CoA Reductase Inhibitor Start: 06-29-2024 End: 03-27-2025 take 1 tablet by mouth once daily Rosuvastatin 5 mg tablet Discontinued 5 mg PO DAILY 90 October 02, 2024 6:32pm March 27, 2025 7:40am Semaglutide (20 sources) Start: 06-22-2024 End: 05-23-2025 Semaglutide (Ozempic) [...] injector Discontinued 0.25 mg SC EVERY WEEK 2024 10:02am June 22, 2024 4:11pm for 4 weeks Start: 08-04-2023 End: 04-20-2024 Semaglutide (Ozempic) 0.25 m g or 0.5 mg (2 mg/3 mL) pen injector Discontinued 0.25 mg SC EVERY WEEK 3 0 August 04, 2023 12:00am April 20, 2024 [...] 04, 2023 12:00am for 4 weeks SEMAGLUTIDE (9 sources) Start: 2024 End: 11-28-2024 SEMAGLUTIDE Discontinued SC 2024 12:00am November 28, 2024 2:06pm Semaglutide (Weight Loss) (13 sources) Start: 08-03-2023 End: 08-04-2023 Semaglutide (Weight Loss) (W egovy) 0.25 mg/0.5 mL pen injector Discontinued 0.25 mg SC EVERY WEEK 2 0 August 03, 2023 12:00am August 04, 2023 [...] of therapy tiZANidine 2 mg oral tablet (16 sources) Central alpha-2 Adrenergic Agonist Start: 04-24-2021 End: 08-26-2022 take 1 tablet by mouth twice daily as needed Tizanidine 2 mg tablet Discontinued 2 mg PO TWICE A DAY as needed for muscle spasticity 30 April 24, 2021 12:00am August 26, 2022 3:01pm ubrogepant 50 mg oral tablet (14 sources) Start: 09-17-2022 End: 2024 take 1 [...] Classification Problem Date Documented Da te Episodic/Chronic Administrative/social admission (1 source) Persons encountering health services in other specified circumstances; Translations: [Other reasons for seeking consultation] Episodic Anxiety disorders (17 sources) Mixed anxiety and depressive disorder; Translations: [Anxiety disorder, unspecified] 05-07-2021 Chronic Asthma (20 sources) Asthma; Translations: [Unspecified asthma, uncomplicated] Chronic Crushing injury or internal injury (10 sources) Injury of radial artery; Translations: [Unspecified injury of radial artery at forearm level, unspecified arm, initial encounter] Onset: 07-06-2025 07-06-2025 Episodic Deficiency and other anemia (16 sources) Anemia; Translations: [Anemia, unspecified] 08-26-2022 Episodic Comment on above: When teenager Diabetes mellitus without complication (14 sources) Diabetes mellitus; Translations: [Type 2 diabetes mellitus without complications] Onset: 10-02-2025 11-28-2024 Chronic Disorders of lipid metabolism (20 sources) Hyperlipidemia; Translations: [Hyperlipidemia, unspecified] Chronic Essential hypertension (20 sources) Hypertensive disorder; Translations: [Essential (primary) hypertension] Onset: 10-02-2025 Chronic Genitourinary symptoms and ill-defined conditions (3 sources) Frequency of micturition; Translations: [Urinary frequency] 08-03-2023 Episodic Headache; including migraine (1 source) Migraine, unspecified, not intractable, without status migrainosus; Translations: [Migraine, unspecified, without mention of intractable migraine without mention of status migrainosus] Chronic Headache; including migraine (17 sources) Frequent headache; Translations: [Frequent headaches] Episodic Comment on above: When teenager Headache; including migraine (1 source) Headache; including migraine; Translations: [Headache, unspecified] Onset: 10-02-2025 Heart valve disorders (20 sources) Heart murmur; Translations: [Cardiac murmur, unspecified] Onset: 08-19-2025 Episodic Joint disorders and dislocations; trauma-related (1 source) Patellofemoral disorders, right knee; Translations: [Pain in joint, lower leg] Chronic Malaise and fatigue (17 sources) Fatigue; Translations: [Other fatigue] 08-26-2022 Episodic Mood disorders (10 sources) Major depressive disorder, single episode, moderate; Translations: [Major depressive affective disorder, single episode, moderate] Chronic Nutritional deficiencies (14 sources) Vitamin D deficiency, unspecified; Translations: [Unspecified vitamin D deficiency] Chronic Osteoarthritis (1 source) Bilateral primary osteoarthritis of knee; Translations: [Osteoarthrosis, localized, primary, lower leg] Chronic Other circulatory disease (2 sources) Arteriovenous fistula, acquired; Translations: [Arteriovenous fistula, acquired] Onset: 09-14-2025 Chronic Other circulatory disease (16 sources) Tightness in throat; Translations: [Other specified symptoms and signs involving the circulatory and respiratory systems] 08-26-2022 Episodic Other gastrointestinal disorders (16 sources) Irritable bowel syndrome; Translations: [Irritable bowel syndrome without diarrhea] 08-26-2022 Chronic Other gastrointestinal disorders (16 sources) Dysphagia; Translations: [Dysphagia, unspecified] 08-26-2022 Episodic Other lower respiratory disease (16 sources) Dyspnea; Translations: [Shortness of breath] 08-26-2022 Episodic Other non-traumatic joint disorders (2 sources) Pain in left knee; Translations: [Pain in joint, lower leg] Episodic Other nutritional; endocrine; and metabolic disorders (20 sources) Obesity; Translations: [Obesity, unspecified] 01-09-2022 Chronic Other nutritional; endocrine; and metabolic disorders (7 sources) Obesity, unspecified; Translations: [Obesity, unspecified] Onset: 04-06-2025 Chronic Other nutritional; endocrine; and metabolic disorders (13 sources) Body mass index 30+ - obesity; Translations: [Body mass index (BMI) 33.0-33.9, adult] 09-06-2024 Chronic Other nutritional; endocrine; and metabolic disorders (1 source) Body mass index (BMI) 33.0-33.9, adult; Translations: [Body mass index [BMI] 33.0-33.9, adult] Onset: 04-06-2025 Chronic Other upper respiratory infections (16 sources) Posterior rhinorrhea; Translations: [Postnasal drip] 08-26-2022 Episodic Residual codes; unclassified (16 sources) Sleep apnea; Translations: [Sleep apnea, unspecified] 05-01-2021 Chronic Residual codes; unclassified (16 sources) History of colonoscopy; Translations: [Other specified postprocedural states] 08-26-2022 Episodic Comment on above: 09/14/2020 Residual codes; unclassified (1 source) Nervousness; Translations: [Nervousness] Onset: 10-02-2025 Episodic Spondylosis; intervertebral disc disorders; other back problems (4 sources) Disorder of right sciatic nerve; Translations: [Sciatica, right side] 01-24-2025 Episodic Past or Other Problems Problem Classification Problem Date Documented Date Episodic/Chronic Abdominal pain (20 sources) Right upper quadrant pain; Translations: [Right upper quadrant pain] Onset: 05-16-2025 04-06-2025 Episodic Biliary tract disease (14 sources) Nonfunctioning gallbladder; Translations: [Other specified diseases of gallbladder] Onset: 06-12-2025 05-11-2025 Episodic Cardiac dysrhythmias (12 sources) Palpitations; Translations: [Palpitations] Onset: 11-28-2024 02-24-2024 Episodic Nonspecific chest pain (20 sources) Tight chest; Translations: [Other chest pain] Onset: 11-28-2024 06-29-2024 Episodic Other screening for suspected conditions (not mental disorders or infectious disease) (10 sources) Thallium stress test abnormal; Translations: [Abnormal result of other cardiovascular function study] Onset: 11-28-2024 11-28-2024 Episodic Results Test Name Value Interpretation Reference Range Facility Surgery Visit Reporton 09-29 Surgery Visit Report [facility] [address] [place] [address] OFFICE VISIT Date of Service: 09/29/25 MR#: [id number] Acct: [id number] Name: CARLA ANDERSON Rep #: [id number] : 1970 Provider: NELSON Pickard Age/Sex: 55/F Location: [facility] [place].[facility] Status: Signed Intake Vital Signs 07/06/25 14:20 09/14/25 12:33 09/29/25 13:02 Height 5 ft 7 in 5 ft 7 in 5 ft 7 in Weight: 231 lb BMI 36.1 BP 128/81 H Blood Pressure Location Lt brachial Position Sitting Respiration 16 Pulse 69 Pulse Source NIBP Temp 98.6 F Temp Source Temporal Pulse Oximetry (%) 95 Oxygen Delivery Method room air Intake Visit Reasons: RADIAL FISTULA 2 WK F/U Chief Complaint: abnormal hida Paper Coater Required: No Accompanied by: Self Is patient in pain?: No Allergies No Known Allergies Allergy (Verified 09/29/25 13:00) Medications ???Medication ???Instructions ???Recorded ???Confirmed ???Type rosuvastatin 5 mg tablet 5 mg PO DAILY #90 tabs 03/27/25 Rx escitalopram oxalate 5 mg tablet 5 mg PO DAILY #90 TABLETS 07/11/25 09/29/25 Rx lisinopril 20 mg tablet See Rx Instructions .Route 5 09/29/25 Rx .COMPLEX #90 tabs Subjective Details: Carla Anderson is a 55 y/o female who presents to the office today for follow-up s/p R radial iatrogenic fistula ligation. She notes that the area across the incision feels tight. She has had some persistent swelling and had more postoperative pain than expected and still has some persistent discomfort. The incision did heal well, all the skin glue has peeled off. There has been no drainage from the area. Objective Details: A Ox3, NAD RRR Nonlabored respirations R radial pulse palpable; R wrist incision site is well-healed. There is some edema around the incision site, generally soft to palpation Coding Level of Care Code Global Post Op Diagnoses Iatrogenic arteriovenous fistula I77.0 [facility] Medical History History of left heart catheterization Depression Anxiety High cholesterol History of stress test History of echocardiogram Cardiology follow-up encounter Wears contact lenses Wears glasses History of IBS Non-smoker Shortness of breath on exertion Hypertension Sleep apnea Fatigue Throat tightness Difficulty swallowing Anxiety and depression Heart murmur Hyperlipidemia High blood pressure Frequent headaches Anemia Surgical History Hx of cholecystectomy Hx of tubal ligation History of colonoscopy [...] do you feel safe at home: Yes Assessment and Plan (No Qualifiers) Assessment and Plan (1) Iatrogenic arteriovenous fistula: Status: Chronic Comment: s/p ligation Plan I think the persistent swelling and discomfort is likely secondary to phlebitic reaction to the vein ligation and expect this to continue to improve with more time over the next few weeks. I advise applying ice/cool compresses, supporting the wrist during typing/using computer mouse, and can apply TONJA wrap for compression as well. Discussed that I will order repeat ultrasound to rule out other complications, if her symptoms are still persistent over the next few weeks then complete the ultrasound or if the symptoms resolve then can cancel. Plan for return to the office as needed if symptoms do not resolve or new concerns arise. 09/29/25 1652 Date Ladan DAMON 09/29/25 1724 Cosigner Signature: Date (if applicable) Javier Christie MD CC: Normal [facility] Office Visit Reporton [address] [facility] [address] [place] [address] OFFICE VISIT Date of Service: 09/25/25 MR#: [id number] Acct: [id number] Patient: CARLA ANDERSON Rep #: [id number] : 1970 Provider: BRANDY NURSE Age/Sex: 55/F Location: [facility] Status: Signed Intake Vital Signs 09/14/25 12:33 09/25/25 15:44 Height 5 ft 7 in BP 112/84 H Blood Pressure Location Lt brachial Position Sitting Respiration 16 Pulse 77 Pulse Source Monitor Pulse Oximetry (%) 95 Oxygen Delivery Method room air Intake Visit Reasons: BP sugar check Chief Complaint: abnormal hida Allergies No Known Allergies Allergy (Verified 09/14/25 12:32) Nurse's Note: BG and and BP check per Madeleine. Patient called reporting feeling off today; feels tingly, lightheaded, hot, jittery, GROSSMAN starting. Patient reports that she has eaten yogurt, grapes, haile's pie, chips, and one can of soda today. Patient is asking if she should come in for a BP and sugar check. Please advise. Results POC Glucose POC Glucose 123 mg/dL Last Edit by Roselyn Brunson on 09/25/25 15:48 Nursing Note Patient here for BP and glucose check. Glucose 123; last meal was at 11:30 AM. Reviewed symptoms with patient that would warrant an ED visit. 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 insulin use: without longterm use Diabetes mellitus complication status: without complication Qualified Code(s): E11.9 - Type 2 diabetes mellitus without complications Orders: Orders POC Glucose Today R45.0 - Nervousness, R51.9 - Headache, unspecified 09/25/25 1606 Date Leah Salvador MD Cosigner Signature: Date (if applicable) CC: Normal [facility] Discharge Instructionon 08-24 Discharge Instruction [facility] Medical Records Department [address] [place] [id number] Instructions for Home/Discharge Instructions 09/14/25 1459 MR#: [id number] Acct: [id number] Name: CARLA ANDERSON Rep #: [id number] : 1970 55 From: Javier Christie MD PCP: Dr. Leah Salvador MD Status:REG [facility] [place] Discharge Instructions Diet Discharge Diet: No restrictions Activity May shower in (days): 2 Lifting Restrictions: do not lift > 20 lbs with right arm for 14 days Additional Activity Instructions:: do not submerge incision for 14 days Dressing / Incision Call your doctor if your incision/area has: Sudden Increased Bleeding, Increased Pain/ Swelling, Increased Redness and Foul Smelling Discharge Call your doctor if you observe: Coldness, Increased Pain and Numbness or Tingling Change Dressing in: 2 days Cleanse incision/area with: Soap Water Follow Up Care Test Results: Test results from this visit will be discussed in further detail at your follow-up appointment, if applicable. Discharge Plan Admission Attending Provider: Javier Christie Primary Care Provider: Leah Salvador Instructions Print Language: Australian Discharge Orders/Prescriptions Prescriptions: New oxycodone 5 mg tablet 5 mg PO BID PRN (Reason: pain) 2 Days Qty: 5 0RF Continued rosuvastatin 5 mg tablet 5 mg PO DAILY Qty: 90 1RF escitalopram oxalate 5 mg tablet 5 mg PO DAILY Qty: 90 0RF lisinopril 20 mg tablet See Rx Instructions .ROUTE .COMPLEX Qty: 90 0RF Dose Instruction: TAKE 1 TABLET BY MOUTH EVERY DAY Rx Instructions: TAKE 1 TABLET BY MOUTH EVERY DAY Referrals / Follow Up: Leah Salvador MD [Primary Care Provider, Internal Medicine] Disposition Disposition (needs filled in before D/C Order can be placed): Home, Self Care 09/14/25 1502 Javier Christie MD CC: Dr. Leah Salvador MD Signed [facility] MR/POSTOP.ANE 09-14-2025 MR/POSTOP.[facility] Medical Records Department [address] [place] [address] Anesthesia Postop Eval I 09/14/25 1520 MR#: [id number] Acct: [id number] Name: CARLA ANDERSON Rep #: [id number] : 1970 55 From: Maverick Larios CRNA PCP: Dr. Leah Salvdaor MD Status:REG SD Y Race: C Location: [place] [address] Anesthesia: Postop Eval I Current Vital Signs Temperature: 97.9 F Pulse Rate: 70 Blood Pressure: 137/84 Respiratory Rate: 16 Pulse Ox: 95 Assessment Airway patent: Yes Spontaneous unlabored respirations: Yes nausea: No Vomiting: No Anesthesia Complication: No Fluid Hydration Crystalloid volume administer (ml): 400 Total IV fluid infused: 400 Progress Note Anesthesia document: Postop Eval 1 completed: Yes 09/14/25 1521 Date Maverick Larios [employer] Cosigner Signature: Date CC: Signed [facility] MR/VFMDGIAG1sy 09-14-2025 MR/POSTOPAN2 [facility] Medical Records Department [address] [place] [address] Anesthesia Postop Eval II 09/14/25 1615 MR#: [id number] Acct: [id number] Name: CARLA ANDERSON Rep #: [id number] : 1970 55 From: Bairon Kauffman MD PCP: Dr. Leah Salvador MD Status:REG SDC Y Race: C Location: [address] Anesthesia Postop Eval I Sum Postop Eval Completion status Anesthesia document: Postop Eval 1 completed: Yes Anesthesia Postop Eval I Summary Anesthesia Postop Eval I Summary: Anesthesia Postop Eval I: Assessment Summary Airway patent Yes 09/14/25 15:20 [employer].TNES Spontaneous unlabored Yes 09/14/25 15:20 [employer].TNES respirations Mental status nausea No 09/14/25 15:20 [employer]CH[employer]IC.TNES Vomiting No 09/14/25 15:20 [employer]CH[employer].TNES Anesthesia Postop Eval I: Fluid Summary Crystalloid volume administer 400 09/14/25 15:20 [employer]CH[employer]IC.TNES (ml) Colloids volume administered ( ml) Blood Product volume administered (ml) Total IV fluid infused 400 09/14/25 15:20 [employer].TNES Anesthesia Postop Eval I: Summary Notes Anesthesia Complication No 09/14/25 15:20 [employer].TNES Anesthesia Complication Comment: Post-operative progress note Anesthesia: Postop Eval II Evaluation Mental status: Awake and Calm Pain Level: 1 nausea: No Vomiting: No Complications Anesthesia Complication: No 09/14/25 161 Date Bairon Kauffman MD Cosigner Signature: Date CC: Signed Normal [facility] Operative Reporton 5 Operative Report [facility] Medical Records Department [address] [place] [address] Operative Report 09/14/25 1527 MR#: [id number] Acct: [id number] Name: CARLA ANDERSON Rep #: [id number] : 1970 55 From: Javier Christie MD PCP: Dr. 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 Post-Operative Diagnosis: Same Surgery/Procedure Performed: Ligation right radial fistula head paper tester: Yes Waitress: iLnda Shirley Tasks completed by health care assistant: Opening, Closing, Opening closing, Hemostasis: Electrocautery and Retracting Type of Anesthesia: Block,Regional and MAC RN Documented Start/Stop Times: Operation Date: 09/14/25 14:00 Case Time Into Pre-Op 09/14/25 12:15 Anesthesia Start 09/14/25 13:53 Into Room 09/14/25 13:53 Procedure Start 09/14/25 14:20 Procedure End 09/14/25 15:09 Anesthesia End 09/14/25 15:13 Out of Room 09/14/25 15:13 Into Recovery 09/14/25 15:15 Procedure Start Time: 14:20 Procedure Stop Time: 15:10 Select all DRAINS/GRAFTS/IMPLANTS that apply: None Estimated Blood Loss: 1 Specimen collected: No Description of surgery: HPI: Patient is a 55-year-old female who previously underwent right radial access coronary catheterization. She had developed an intermittently bleeding blister over the access site and a duplex revealed what appeared to be fistula pattern flow in the radial artery. Further assessment with ultrasound the office confirmed communication with an adjacent vein that had fistula pattern flow into the subcutaneous venous branches. She is taken now for exploration with possible repair versus ligation. Description of procedure: Upon obtaining informed consent and verification correct patient procedure and site the patient was taken to the operating where she had a regional block administered by anesthesia. She was then positioned prepped and draped in usual sterile fashion and timeout performed. Additional moderate sedation was then administered by anesthesia. Ultrasound was used to evaluate the radial artery and the location of the apparent fistula connection marked. Longitudinal incision was then made with ellipse to excise the ulcerated skin. Bovie was then used to dissect down through subcutaneous tissue and self-retaining retractors put in position. Once the radial artery was visualized sharp dissection was used to dissect free proximal distal right angle used to place a vessel loop. In the midportion of the vessel there was a significant amount of reactive tissue likely at the site of cath access and fistula formation. There were multiple small vein branches emanating from this site and they were ligated with small clips and divided. The vessel was skeletonized freeing it from all adjacent tissue including the surrounding venous plexus which were subsequently ligated. The vessel was then assessed with Doppler and found to have a normal arterial flow pattern with no further evidence of fistula flow. The incision was then inspected for hemostasis and closed with 3-0 Vicryl followed by 4-0 Monocryl and Dermabond for the skin. The patient was then taken to the recovery room with anticipated discharge to home. Surgical Findings: Fistula communication between radial artery and adjacent radial vein that pressurized a superficial venous branch Complications Complications: No 09/14/25 1535 Cosigner Signature (if applicable): CC: Dr. Leah Salvador MD; Dr. Javier Christie MD Signed [facility] MR/PAT.[facility] Medical Records Department [address] [place] [address] PAT - Anesthesia 09/07/25 1552 MR#: [id number] Acct: [id number] Name: CARLA ANDERSON Rep #: [id number] : 1970 55 From: Bairon Kauffman MD PCP: Dr. Leah Salvador MD Status:PRE [facility] Y Race: C Location: [facility] Pre-Assessment Diagnosis/Proposed Procedure Planned Operative Procedure(s): (R) Repair right radial fistula Anesthesia History Anesthesia History - mandrel puller: Anesthesia History - mandrel puller Hx Hospitalization No 09/07/25 14:14 Any Problems With Anesthesia No 09/07/25 14:14 Cholinesterase deficiency No 09/07/25 14:14 You/Your Family Experience No 09/07/25 14:14 fever (hyperthermia) with Relationship Recent Exposure to Contagious No 05/29/25 08:07 Disease Does patient have nerve No 09/07/25 14:14 stimulator Patient instructed to have device shut off --Does patient have Pacemaker or ICD? When Was Last Pacemaker Check QUESTION #4 FULL TEXT: You/Your Family Experience fever (hyperthermia) with Anesthesia Last Oral Intake Last Oral intake: Last Oral Intake NPO since Meds taken in AM with sips of water? Meds patient instructed to take am of surgery PONV PONV - mandrel puller: PONV - mandrel puller Female Yes 09/07/25 14:14 HX of Motion Sickness Yes 09/07/25 14:14 HX of N/V After Surgery No 09/07/25 14:14 Non-Smoker Yes 09/07/25 14:14 Duration of Surgery greater Yes 09/07/25 14:14 than 60 minutes Number of Risk Factors 4 09/07/25 14:14 PONV Score Severe Risk 09/07/25 14:14 Height Weight Height Weight: Anesthesia: Height Weight Height 5 ft 7 in 07/06/25 14:20 Respiratory Assessment Respiratory Assessment - mandrel puller: Respiratory Tract Infection Hx - mandrel puller Hx Respiratory Tract Infection No 09/07/25 14:14 STOP Sleep Apnea STOP Sleep Apnea - mandrel puller: STOP Sleep Apnea - mandrel puller Hx Hypertension Yes: CONTROLLED ON MED 09/07/25 14:14 Hx Sleep Apnea No 09/07/25 14:14 CPAP No 09/07/25 14:14 BIPAP Do you snore loudly (louder No 09/07/25 14:14 than talking or can be heard Do you often feel tired/ No 09/07/25 14:14 fatigued/ sleepy during daytime? Has anyone observed you stop No 09/07/25 14:14 breathing during sleep? STOP Results Negative 09/07/25 14:14 QUESTION #5 FULL TEXT : Do you snore loudly (louder than talking or can be heard through closed doors)? Tobacco Use History Tobacco Use History - mandrel puller: Tobacco Use History - mandrel puller Tobacco Use Smoking Status Never smoker 09/07/25 14:14 Hx Tobacco Use No 09/07/25 14:14 Years Smoking Packs Smoked per Day Smoking Cessation Date was within the last 15 years Hx Smoking Cessation Date Hx Smoking Cessation Counseling Hematologic Medial History Hematologic Hx - mandrel puller: Hematologic Medical Hx - [employer] Hx of Blood Transfusion No 09/07/25 14:14 Hx of Transfusion in last 3 No 09/07/25 14:14 Months Date of Last Transfusion (if within last 3 months) Ever experience any problems No 09/07/25 14:14 with transfusion(s)? Specify any problems Hx of Preganancy in last 3 No 09/07/25 14:14 Months Nurse Filling Out Transfusion VCHRISTIN 09/07/25 14:14 Questions: Date: 09/07/25 09/07/25 14:14 Time: 14:16 09/07/25 14:14 Patient unable to answer at this time (ie. confused, unrespo /Reproduction History /Reproductive History - mandrel puller: /Reproductive Hx- mandrel puller Hx Now No 09/07/25 14:14 Gestational Age (in weeks): EDC: Hx Hx Para Hx Section SAB No 09/07/25 14:14 [facility] Medical History (Updated 09/07/25 @ 14:14 by Fany Fernandez) History of left heart catheterization Depression Anxiety High cholesterol History of stress [...] tablet 5 mg PO DAILY #90 TABLETS 07/11/25 Unknown Rx lisinopril 20 mg tablet See Rx Instructions .Route 5 Unknown Rx .COMPLEX #90 tabs Allergy/AdvReac Type Severity Reaction Status Date / (more content not included)... Normal [facility] MR/BMS.Angy 08-30-2025 MR/BMS.[facility] [address] [place] [address] OFFICE VISIT Date of Service: 08/30/25 MR#: [id number] Acct: [id number] Name: CARLA ANDERSON Rep #: [id number] : 1970 Provider: Dr. Javier Christie MD Age/Sex: 55/F Location: [facility] Status: Signed Intake Vital Signs 07/06/25 14:20 08/30/25 15:37 Height 5 ft 7 in Weight: 232 lb BP 156/82 H Blood Pressure Location Lt radial Position Sitting Respiration 16 Pulse 80 Pulse Source Monitor Temp 97.5 F L Temp Source Temporal Pulse Oximetry (%) 97 Oxygen Delivery Method room air Intake Visit Reasons: Questionable Fistula Is patient in pain?: No Allergies No Known Allergies Allergy (Verified 08/30/25 15:38) Medications ???Medication ???Instructions ???Recorded ???Confirmed ???Type rosuvastatin 5 mg tablet 5 mg PO DAILY #90 tabs 03/27/25 Rx multivitamin 1 tab PO QDAY 07/06/25 08/30/25 Hi story escitalopram oxalate 5 mg tablet 5 mg PO DAILY #90 TABLETS 07/11/25 08/30/25 Rx lisinopril 20 mg tablet See Rx Instructions .Route 5 08/30/25 Rx .COMPLEX #90 tabs Is last menstrual period known: No Post menopausal: Yes Patient : No Have you fallen in the past year?: No PFSH Medical History History of left heart catheterization Depression Anxiety High cholesterol History of stress test History of echocardiogram Cardiology follow-up encounter Wears contact lenses Wears glasses History of IBS Non-smoker Shortness of breath on exertion Hypertension Sleep apnea Fatigue Throat tightness Difficulty swallowing Anxiety and depression Heart murmur Hyperlipidemia High blood pressure Frequent headaches Anemia Surgical History Hx of cholecystectomy Hx of tubal ligation History of colonoscopy [...] safe at home: Yes HPI HPI HPI: CARLA ANDERSON, is a 55 F who presents to the office today for evaluation of right wrist scab/bleeding several months after a radial access cardiac catheterization She states initially site appeared normal and there was no skin compromise. Over the past several weeks scab has formed and sloughed with some bleeding easily controlled with manual pressure, non-pulsatile. She had a duplex that suggested possible fistula flow adjacent to area. Her cath was negative for any significant stenosis and no intervention was required. ROS General General: Yes weight change and fatigue; No appetite, colon cancer, breast cancer or weakness HEENT HEENT: No difficulty swallowing, eye injury, eye surgery, swollen glands or hoarseness Endo Endocrine: Yes heat intolerance; No thyroid disease, diabetes mellitus, thyroid cancer, Hair loss or cold intolerance Skin Skin: No rash or changing moles Musc Musculoskeletal: No back problems, arthritis, rheumatoid arthritis, gout or joint pain Cardio Cardiovascular: Yes murmur and high blood pressure; No pacemaker, heart disease, atrial fibrillation, heart attack, heart stent, palpitations, shortness of breath with exertion or chest pain Psych Psychiatric: Yes depression and anxiety; No hearing voices Resp Respiratory: Yes shortness of breath, No sleep apnea, No cough, No COPD, No asthma, No emphysema and No wheezing Gastro Gastrointestinal: No abdominal pain, Yes nausea or vomiting, No diarrhea, No constipation, No blood in stool, No acid reflux, No hemorrhoids, No ulcers, No gallbladder problem and No black,tarry stools Flash Hematologic: No blood thinners, No blood disorders, No bleeding, No anemia and No blood clots Neuro Neurologic: No system reviewed and no additional complaints, except as documented, No as per HPI, No abnorma (more content not included)... Normal [facility] Echo Completeon 08-09-2025 Echo Complete [facility] Cardiovascular Services [address] [place] [address] Echo Complete 08/09/25 1055 MR#: [id number] Acct: [id number] Name: CARLA ANDERSON Rep #: [id number] : 1970 55 From: Carlos Muniz MD Attending Dr: NELSON Lloyd Status: REG CLI Ordering Dr: Diane Broderick Date: 07/24 06/16 Location: [facility] Sex: F C Admitted: Reason For Study Reason For Study: MURMUR Procedure This was a 2D Doppler, Color Flow transthoracic echocardiogram. Exam performed in department. Left Ventricle Normal LV size. Left ventricular systolic function is normal. The left ventricular ejection fraction is 65 %. No regional wall motion abnormalities noted. Right Ventricle Normal RV size. Normal systolic function. Atria Normal left atrium. Normal right atrium. Mitral Valve Normal mitral valve. Tricuspid Valve Normal tricuspid valve. Mild (1+) tricuspid valve insufficiency. Pulmonary artery systolic pressure is 26 mmHg. Aortic Valve Trisinus/trileaflet aortic valve. Pulmonic Valve Normal pulmonic valve. Great Vessels Normal aortic root. The pulmonary artery is normal size. Inferior vena cava collapse with respiration. Pericardium/Pleural No pericardial effusion. MMode/2D Measurements Calculations LVIDd: 4.8 cm IVSd: 1.0 cm Ao root diam: 3.3 cm LVIDs: 2.8 cm LVPWd: 0.98 cm RVDd: 3.6 cm FS: 40.8 % LAV(MOD-bp): 50.5 ml LVAd ap4: 26.5 cm2 LVAd ap2: 26.1 cm2 LAV(MOD-bp) Indexed: 23.4 ml/m2 LVLd ap4: 7.2 cm LVLd ap2: 7.4 cm LAV(MOD-sp2): 52.4 ml EDV(MOD-sp4): 79.8 ml EDV(MOD-sp2): 79.1 ml LAV(MOD-sp4): 44.3 ml EDV(sp4-el): 82.5 ml EDV(sp2-el): 78.0 ml LVAs ap4: 13.0 cm2 LVAs ap2: 13.2 cm2 LVLs ap4: 5.6 cm LVLs ap2: 6.0 cm ESV(MOD-sp4): 26.4 ml ESV(MOD-sp2): 25.7 ml ESV(sp4-el): 25.8 ml ESV(sp2-el): 24.3 ml EF(MOD-sp4): 66.9 % EF(MOD-sp2): 67.5 % EF(sp4-el): 68.8 % SV(MOD-sp4): 53.4 ml SV(MOD-sp2): 53.4 ml SV(sp4-el): 56.7 ml SI(MOD-sp4): 24.7 ml/m2 SI(MOD-sp2): 24.8 ml/m2 LA A4 area: 16.9 cm2 LA dimension(2D): 3.3 cm RA A4 area: 14.0 cm2 TAPSE: 2.0 cm Time Measurements MV dec time: 0.25 sec Doppler Measurements Calculations MV E max emmanuel: 105.8 cm/sec Lat Peak E' Emmanuel: 11.0 cm/sec Med Peak E' Emmanuel: 9.6 cm/sec MV A max emmanuel: 93.1 cm/sec E/E' lat: 9.6 E/E' med: 11.0 MV E/A: 1.1 MV V2 max: 116.5 cm/sec MV P1/2t max emmanuel: 116.5 cm/sec Ao V2 max: 156.9 cm/sec MV max P.4 mmHg MV P1/2t: 51.5 msec Ao max P.9 mmHg MV V2 mean: 62.3 cm/sec Ao V2 mean: 107.0 cm/sec MV mean P.9 mmHg MV dec slope: 662.1 cm/sec2 Ao mean P.3 mmHg MV V2 VTI: 34.3 cm MVA(P1/2t): 4.3 cm2 Ao V2 VTI: 35.0 cm AV (velocity ratio): 0.80 LV V1 max: 128.2 cm/sec PA V2 max: 124.3 cm/sec LV V1 max P.6 mmHg PA V2 mean: 91.9 cm/sec PI dec slope: 166.1 cm/sec2 LV V1 mean P.3 mmHg LV V1 mean: 82.6 cm/sec LV V1 VTI: 27.8 cm TR max emmanuel: 236.2 cm/sec TR max P.3 mmHg ECHO/Echo Complete Interpretation Summary Normal LV size. Left ventricular systolic function is normal. The left ventricular ejection fraction is 65 %. Structurally normal valves. Ordering Physician: Diane Broderick Referring Physician: Leah Salvador Performed By: Willow Medrano, ROLANDO, RVT 08/09/251538 Date Carlos Muniz MD CC: Dr. Leah Salvador MD; NELSON Lloyd Date Dictated: 08/09/25 105 Date Transcribed: 08/09/251538 Production Proofreader: Signed Normal [facility] Echocardiogram study reportO rdered By: Carlos Muniz on 08-09-2025 Study report [facility] Cardi[facility] Services [address] [place] [address] Echo Complete 08/09/251054 MR#: [id number] Acct: [id number] Name: CARLA ANDERSON Rep #:[id number] : 1970 55 From: Carlos Acosta Attending Dr: NELSON Lloyd Status: REG CLI Ordering Dr: Diane Broderick Date: 08/09/25 Location: [facility] Sex: F C Admitted: Reason For Study Reason For Study: MURMUR Procedure This was a 2D Doppler, Color Flow transthoracic echocardiogram. Exam performed in department. Left Ventricle Normal LV size. Left ventricular systolic function is normal. The left ventricular ejection fraction is 65 %. No regional wall motion abnormalities noted. Right Ventricle Normal RV size. Normal systolic function. Atria Normal left atrium. Normal right atrium. Mitral Valve Normal mitral valve. Tricuspid Valve Normal tricuspid valve. Mild (1+) tricuspid valve insufficiency. Pulmonary artery systolic pressure is 26 mmHg. Aortic Valve Trisinus/trileaflet aortic valve. Pulmonic Valve Normal pulmonic valve. Great Vessels Normal aortic root. The pulmonary artery is normal size. Inferior vena cava collapse with respiration. Pericardium/Pleural No pericardial effusion. MMode/2D Measurements & Calculations LVIDd: 4.8 cm IVSd: 1.0 cm Ao root diam: 3.3 cm LVIDs: 2.8 cm LVPWd: 0.98 cm RVDd: 3.6 cm FS: 40.8 % LAV(MOD-bp): 50.5 ml LVAd ap4: 26.5 cm2 LVAd ap2: 26.1 cm2 LAV(MOD-bp) Indexed: 23.4 ml/m2 LVLd ap4: 7.2 cm LVLd ap2: 7.4 cm LAV(MOD-sp2): 52.4 ml EDV(MOD-sp4): 79.8 ml EDV(MOD-sp2): 79.1 ml LAV(MOD-sp4): 44.3 ml EDV(sp4-el): 82.5 ml EDV(sp2-el): 78.0 ml LVAs ap4: 13.0 cm2 LVAs ap2: 13.2 cm2 LVLs ap4: 5.6 cm LVLs ap2: 6.0 cm ESV(MOD-sp4): 26.4 ml ESV(MOD-sp2): 25.7 ml ESV(sp4-el): 25.8 ml ESV(sp2-el): 24.3 ml EF(MOD-sp4): 66.9 % EF(MOD-sp2): 67.5 % EF(sp4-el): 68.8 % SV(MOD-sp4): 53.4 ml SV(MOD-sp2): 53.4 ml SV(sp4-el): 56.7 ml SI(MOD-sp4): 24.7 ml/m2 SI(MOD-sp2): 24.8 ml/m2 LA A4 area: 16.9 cm2 LA dimension(2D): 3.3 cm RA A4 area: 14.0 cm2 TAPSE: 2.0 cm Time Measurements MV dec time: 0.25 sec Doppler Measurements & Calculations MV E max emmanuel: 105.8 cm/sec Lat Peak E' Emmanuel: 11.0 cm/sec Med Peak E' Emmanuel: 9.6 cm/sec MV A max emmanuel: 93.1 cm/sec E/E' lat: 9.6 E/E' med: 11.0 MV E/A: 1.1 MV V2 max: 116.5 cm/sec MV P1/2t max emmanuel: 116.5 cm/sec Ao V2 max: 156.9 cm/sec MV max P.4 mmHg MV P1/2t: 51.5 msec Ao max P.9 mmHg MV V2 mean: 62.3 cm/sec Ao V2 mean: 107.0 cm/sec MV mean P.9 mmHg MV dec slope: 662.1 cm/sec2 Ao mean P.3 mmHg MV V2 VTI: 34.3 cm MVA(P1/2t): 4.3 cm2 Ao V2 VTI: 35.0 cm AV (velocity ratio): 0.80 LV V1 max: 128.2 cm/sec PA V2 max: 124.3 cm/sec LV V1 max P.6 mmHg PA V2 mean: 91.9 cm/sec PI dec slope: 166.1 cm/sec2 LV V1 mean P.3 mmHg LV V1 mean: 82.6 cm/sec LV V1 VTI: 27.8 cm TR max emmanuel: 236.2 cm/sec TR max P.3 mmHg ECHO/Echo Complete Interpretation Summary Normal LV size. Left ventricular systolic function is normal. The left ventricular ejection fraction is 65 %. Structurally normal valves. Ordering Physician: Diane Broderick Referring Physician: Leah Salvador Performed By: Willow Medrano, ROLANDO, RVT 08/09/25 1539 Date _ Carlos Muniz MD CC: Dr. Leah Salvador MD; NELSON Lloyd ~ Date Dictated: 08/09/25 1055 Date Transcribed: 08/09/25 1539 Production Proofreader: Signed [facility] Work Phone: Arterial Doppler ultrasound reportOrdered By: Javier Christie on 07-31-2025 Study report [facility] Cardi[facility] [address] [place] [address] US Art Duplex Unilat UP Extrem 07/27/25 1502 MR#: [id number] Acct: [id number] Name: CARLA ANDERSON Rep #:[id number] : 1970 55 From: Javier Acosta Attending Dr: NELSON Lloyd Status: REG CLI Ordering Dr: Diane Broderick PA Date: 07/27/25 Location: [facility] Sex: F C Admitted: Reason For Study Reason For Study: Injury to artery RIGHT Radial artery mid, 0.22 x 0.21 cm. Radial artery mid, 109.5 cm/sec. Radial artery distal, 0.22 x 0.21 cm. Radial artery distal, 103 cm/sec. Ulnar artery distal, 0.17 x 0.18 cm. Ulnar artert distal, 104.3 cm/sec. Radial V, Ulnar V, and Cephalic V are compressible. Vascularized area noted at area of concern that measures 0.14 x 0.17 cm. Preliminary report given to Meggan DAMON . /US Art Duplex Unilat UP Extrem Interpretation Summary Right upper extremity arteries patent with normal velocities and no evidence of stenosis. Right upper extremity veins patent and compressible. Vascularized area noted at area of concern that measures 0.14 x 0.17 cm with no communication with radial artery visualized. Ordering Physician: Diane Broderick Referring Physician: Leah Salvador Performed By: Natalia Nash RVT 07/31/25 1234 Date _ Javier Christie MD CC: Dr. Leah Salvador MD; NELSON Lloyd ~ Date Dictated: 07/27/25 1502 Date Transcribed: 07/31/25 1234 Production Proofreader: Signed [facility] Work Phone: US Art Duplex Unilat UP Extr emo 07-27-2025 Art Duplex Unilat UP Extrem [facility] Cardiovascular Services [address] [place] [address] Art Duplex Unilat UP Extrem 07/27/25 1502 MR#: [id number] Acct: [id number] Name: CARLA ANDERSON Rep #: [id number] : 1970 55 From: Javier Christie MD Attending Dr: Diane Broderick PA Status: REG CLI Ordering Dr: Diane Broderick PA Date: 03/17 Location: [facility] Sex: F C Admitted: Reason For Study Reason For Study: Injury to artery RIGHT Radial artery mid, 0.22 x 0.21 cm. Radial artery mid, 109.5 cm/sec. Radial artery distal, 0.22 x 0.21 cm. Radial artery distal, 103 cm/sec. Ulnar artery distal, 0.17 x 0.18 cm. Ulnar artert distal, 104.3 cm/sec. Radial V, Ulnar V, and Cephalic V are compressible. Vascularized area noted at area of concern that measures 0.14 x 0.17 cm. Preliminary report given to Meggan SAINI. /US Art Duplex Unilat UP Extrem Interpretation Summary Right upper extremity arteries patent with normal velocities and no evidence of stenosis. Right upper extremity veins patent and compressible. Vascularized area noted at area of concern that measures 0.14 x 0.17 cm with no communication with radial artery visualized. Ordering Physician: Diane Broderick Referring Physician: Leah Salvador Performed By: Natalia Nash, RVT 07/31/25 1234 Date Javier Christie MD CC: Dr. Leah Salvador MD; NELSON Lloyd Date Dictated: 07/27/25 1502 Date Transcribed: 07/31/25 1234 Production Proofreader: Signed Normal [facility] Cardiology Visit Reporton Cardiology Visit Report [facility] [address] [place] [address] OFFICE VISIT Date of Service: 07/06/25 MR#: [id number] Acct: [id number] Name: CARLA ANDERSON Rep #: [id number] : 1970 Provider: NELSON Williamson Age/Sex: 55/F Location: [facility] Status: Signed HPI HPI History of Present Illness Details: This is a 55-year-old female that recently established with us in November 2024. In July 2024 she had a stress test for fatigue, dyspnea and chest discomfort. Stress test demonstrated apical and septal ischemia. She did undergo a diagnostic heart catheterization on December 06, 2024 which demonstrated normal coronary arteries. She also has a history of hyperlipidemia. Patient is no longer having chest pain. However she is concerned about a raised area on the area of her heart catheterization. It is red and does appear pulsatile. She does not have any worsening shortness of breath. Intake Vital Signs 05/29/25 08:07 07/06/25 14:20 Height 5 ft 7 in 5 ft 7 in Weight: 231 lb BMI 36.1 BP 125/78 H Blood Pressure Location Lt brachial Position Sitting Respiration 16 Pulse 70 Pulse Source Monitor Intake Visit Reasons: O/D for FU/Lump in Wrist from Cath Paper Coater Required: No Accompanied by: Self Is patient in pain?: No Allergies No Known Allergies Allergy (Verified 07/06/25 14:17) Medications ???Medication ???Instructions ???Recorded ???Confirmed ???Type rosuvastatin 5 mg tablet 5 mg PO DAILY #90 tabs 03/27/25 Rx escitalopram oxalate 5 mg tablet 5 mg PO DAILY #90 TABLETS 04/12/25 07/06/25 Rx lisinopril 20 mg tablet See Rx Instructions .Route 5 07/06/25 Rx .COMPLEX #90 tabs multivitamin 1 tab PO QDAY 07/06/25 07/06/25 Hi story Ejection fraction %: 77 Have you fallen in the past year?: No PFSH Medical History (Updated 07/06/25 @ 14:52 by Diane Broderick PA, PA) History of left heart catheterization Depression Anxiety High cholesterol History of stress test History of echocardiogram Cardiology follow-up encounter Wears contact lenses Wears glasses History of IBS Non-smoker Shortness of breath on exertion Hypertension Sleep apnea Fatigue Throat tightness Difficulty swallowing Anxiety and depression Heart murmur Hyperlipidemia High blood pressure Frequent headaches Anemia Surgical History Hx of cholecystectomy Hx of tubal ligation History of colonoscopy [...] Const: Positive for fatigue; Negative for weakness Eyes Eyes: Negative for change in vision ENT ENT: Negative for dizziness or balance problems Cardio Chest Pain: No Palpitations: No Edema: None Resp Respiratory: Negative for SOB with activity, SOB at rest or SOB orthopnea SOB lying down GI GI: Negative nausea or heartburn Musc Musc: Negative for balance problems Neuro Neuro: Negative for dizziness, lightheadedness, near syncope, syncope or weakness Endo Endo: Positive for fatigue ROS Narrative has lump in right wrist where cath was performed. Cardiology Exam Const Appearance: cooperative, healthy appearing, comfortable and no acute distress Nutritional Appearance: overweight Head Head: normal to inspection Eyes General: appearance normal, both eyes and all related structures Neck Neck: no JVD Carotids: Negative bruit Chest Chest inspection: normal inspection of the chest Auscultation: Bilateral: Clear to Auscultation Cardio Rate: regular rate Rhythm: regular rhythm Heart sounds: S1 normal, S2 normal and murmur; Negative rub or gallop Murmur: Grade 2/6, mid systolic, LLSB and LVOT GI GI: normal to inspection Neuro General: patient alert and patient oriented x3 (more content not included)... Normal [facility] 12 Lead EKGon 05-29-2025 12 Lead EKG [facility] Cardiovascular Services [address] [place] [address] 12 Lead EKG 05/29/25 0758 MR#: [id number] Acct: [id number] Name: CARLA ANDERSON Rep #: [id number] : 1970 55 From: Carlos Muniz MD Attending Dr: Dr. Omar Guardado MD Status: REG [facility] Ordering Dr: Donnie Zendejas MD Date: 05/29/25 Location: AC Sex: F C Admitted: Test Reason : [...] ventricular complexes are now Present Confirmed by CARLOS MUNIZ MD ([id number]), editor in chief newspaper [employer] ([id number]) on 05/29/2025 1:24:11 PM Referred By: Omar Guardado Confirmed By: CARLOS MUNIZ MD 05/29/25 1324 Date Carlos Muniz MD CC: Dr. Leah Salvador MD; Dr. Omar Guardado MD; Dr. Donnie Zendejas MD Signed Normal [facility] Discharge Instructionon 07 Discharge Instruction [facility] Medical Records Department [address] [place] [address] Instructions for Home/Discharge Instructions 05/29/25 1045 MR#: [id number] Acct: [id number] Name: CARLA ANDERSON Rep #: [id number] : 1970 55 From: Omar Guardado MD PCP: Dr. Leah Salvador MD Status:REG [facility] Discharge Instructions Procedure Gallbladder Diet Discharge [...] to schedule 2 week follow up appointment. [phone] Test Results: Test results from this visit will be discussed in further detail at your follow-up appointment, if applicable. Discharge Plan Admission Attending Provider: Omar Guardado Primary Care Provider: Leah Salvador Instructions Print Language: Australian Discharge Orders/Prescriptions Prescriptions: New oxycodone 5 mg [...] can be placed): Home, Self Care 05/29/25 1047 Omar Guardado MD CC: Dr. Leah Salvador MD Signed Normal [facility] Electrocardiogram reportOrde red By: Carlos Muniz on 05-29-2025 EKG study [facility] Cardiovascular Services [address] [place] [address] 12 Lead EKG 05/29/25 0758 MR#: [id number] Acct: [id number] Name: CARLA ANDERSON Rep #:[id number] : 1970 55 From: Carlos Muniz MD Attending Dr: Dr. Omar Guardado MD Status: REG SDC Ordering Dr: Donnie Zendejas MD Date: 06/16 Location: AC Sex: F C Admitted: Test Reason : [...] ventricular complexes are now Present Confirmed by CARLOS MUNIZ MD ([id number]), editor in chief newspaper [employer] ([id number]) on 05/29/2025 1:24:11 PM Referred By: Omar Guardado Confirmed By: CARLOS MUNIZ MD 05/29/25 1324 Date _ Carlos Muniz MD CC: Dr. Leah Salvador MD; Dr. Omar Guardado MD; Dr. Donnie Zendejas MD ~ Signed [facility] Other Phone: MR/POSTOP.ANElisset 05-29-2025 MR/POSTOP.[facility] Medical Records Department [address] [place] [address] Anesthesia Postop Eval I 05/29/25 1058 MR#: [id number] Acct: [id number] Name: CARLA ANDERSON Rep #: [id number] : 1970 55 From: Graeme Mccormack CRNA PCP: Dr. Leah Salvador MD Status:REG SDC Y Race: C Location: [place] [address] Anesthesia: Postop Eval I Current Vital Signs [...] document: Postop Eval 1 completed: Yes 05/29/25 105 Date Graeme Mccormack CRNA Cosigner Signature: Date CC: Signed [facility] MR/POSTOP.[facility] Medical Records Department [address] [place] [address] Anesthesia Postop Eval I 05/29/25 0854 MR#: [id number] Acct: [id number] Name: CARLA ANDERSON Rep #: [id number] : 1970 55 From: Graeme Mccormack CRNA PCP: Dr. Leah Salvador MD Status:REG SDC Y Race: C Location: [place] [address] Anesthesia: Postop Eval I Current Vital Signs [...] Postop Eval 1 completed: Yes 05/29/25 0855 Date Graeme Mccormack GARAGE CONSTRUCTION EQUIPMENT MECHANIC Cosigner Signature: Date CC: Signed Normal [facility] MR/IUSVNKUR3hb 05-29-2025 [facility] Medical Records Department [address] [place] [address] Anesthesia Postop Eval II 05/29/25 1125 MR#: [id number] Acct: [id number] Name: CARLA ANDERSON Rep #: [id number] : 1970 55 From: Donnie Zendejas MD PCP: Dr. Leah Salvador MD Status:REG SDC Y Race: C Location: [place] [address] Anesthesia Postop Eval I Sum Postop Eval Completion status Anesthesia document: Postop Eval 1 completed: Yes Anesthesia Postop Eval I Summary Anesthesia Postop Eval I Summary: Anesthesia Postop Eval I: Assessment Summary Airway patent Yes 05/29/25 10:58 [employer]ARAGE CONSTRU[employer] EQUIPMENT MECHANIC.APAT Spontaneous unlabored Yes 05/29/25 10:58 [employer]ARAGE [employer]STRU[employer] EQUIPMENT MECHANIC.APAT respirations Mental status Awake 05/29/25 10:58 [employer]ARAGE [employer]STRU[employer] EQUIPMENT MECHANIC.APAT nausea No 05/29/25 10:58 GARAGE CONSTRUCTION EQUIPMENT MECHANIC.APAT Vomiting No 05/29/25 10:58 GARAGE CONSTRUCTION EQUIPMENT MECHANIC.APAT Anesthesia Postop Eval I: Fluid Summary Crystalloid volume administer 600 05/29/25 10:58 [employer]AGE [employer]STRU[employer] EQUIPMENT MECHANIC.APAT (ml) Colloids volume administered ( ml) Blood Product volume administered (ml) Total IV fluid infused 600 05/29/25 10:58 [employer]ARAGE [employer]STRU[employer] EQUIPMENT MECHANIC.APAT Anesthesia Postop Eval I: Summary Notes Anesthesia Complication No 05/29/25 10:58 [employer]AGE [employer]STRU[employer] EQUIPMENT MECHANIC.APAT Anesthesia Complication Comment: Post-operative progress note Anesthesia: Postop Eval II Evaluation Mental status: Awake Pain Level: 2 nausea: No Vomiting: No 05/29/25 1125 Date Donnie Murphy Signature: Date CC: Signed Normal [facility] Operative Reporton 5 Operative Report [facility] Medical Records Department [address] [place] [address] Operative Report 05/29/25 1041 MR#: [id number] Acct: [id number] Name: CARLA ANDERSON Rep #: [id number] : 1970 55 From: Omar Guardado MD PCP: Dr. Leah Salvador MD Status:REG [facility] Location: [place] [address] Operative Report (Standard) Operative Information Date of Procedure: 05/29/25 Pre-Operative Diagnosis: Biliary dyskinesia Post-Operative Diagnosis: Biliary dyskinesia Surgery/Procedure Performed: Robotic assisted laparoscopic cholecystectomy head paper tester: Yes Waitress: Benja Soto Tasks completed by health care assistant: Opening closing and Retracting Type of Anesthesia: General/Regional [...] Veress needle was removed and a port was placed. Camera was placed into the abdomen and there were no injuries from entry. Under direct visualization 2 left upper quadrant ports were placed and a right upper quadrant port was placed. The gallbladder was retracted cephalad and the infundibulum was retracted laterally. The peritoneum was stripped and the dissection occurred. The cystic duct and cystic artery were identified. This was done with the [...] to close the midline fascia using a [id number] 0 Vicryl suture. Next the incisions were injected with local anesthetic and closed with interrupted 4-0 Monocryl sutures. Steri-Strips and bandages were applied. Patient was taken to PACU in stable condition. Surgical Findings: None Complications Complications: No Admit VTE Documentation VTE Mechan Device Prophylaxis: SCD's 05/29/25 1045 Cosigner Signature (if applicable): CC: Dr. Leah Salvador MD; Dr. Omar Guardado MD Signed Normal [facility] Surgery Specimen Level IIIon 05-29-2025 Surgery Specimen Level III Patient Age/Sex Location Account Attending Physician CARLA ANDERSON 55/F [facility] [id number] Dr. Omar Guardado MD Specimen: [id number] Received: 05/29/25 Status: REGINA Duarte Num: [id number] Spec Type: MASOUD Stephens Dr: Dr. Omar Guardado MD HEADER OPERATION: Robotic cholecystectomy PRE-OP DIAGNOSIS: Nonfunctioning gallbladder TISSUE SUBMITTED: A- Gallbladder MICROSCOPIC DIAGNOSIS A. Gallbladder, nonfunctioning gallbladder, cholecystectomy: - Cholesterolosis. - Benign pericystic lymph node x1. MICROSCOPIC DESCRIPTION Slides are reviewed. GROSS DESCRIPTION A. Received in formalin labeled with the patient's name and date of . Designated as gallbladder is a 9.0 x 0.2 x 0.2 cm pink-green, intact gallbladder with attached patent cystic duct (inked black, shaved). A lymph node is present. Opening reveals yellow-green, tenacious bile devoid of choleliths. The mucosa is yellow-green and granular with a maximum wall thickness of <0.1 cm. Cholesterolosis is present. Registered Appraiser sections are submitted in 1 cassette. [place] 05/29/2025 CPT:95232 Patient Age/Sex Location Account Attending Physician CARLA ANDERSON 55/F [facility] [id number] Dr. Omar Guardado MD Signed (signature on file) Dr. Felecia Trinidad MD 06/02/25 1137 Normal [facility] Comment on above: Performed By: #### P SUIII ####[facility] [address] [place], [address] MR/PATCalliPRATIMAlisset 2025 MR/PAT.PRATIMA [facility] Medical Records Department [address] [place] [address] PAT - Anesthesia 05/25/25 1426 MR#: [id number] Acct: [id number] Name: CARLA ANDERSON Rep #: [id number] : 1970 55 From: Beau John MD PCP: Dr. Leah Salvador MD Status:PRE [facility] Y Race: C Location: [facility] Pre-Assessment Diagnosis/Proposed Procedure Planned Operative Procedure(s): Robotic Cholecystectomy Anesthesia History Anesthesia History - mandrel puller: Anesthesia History - mandrel puller Hx Hospitalization No 05/25/25 10:04 Any Problems [...] take am of surgery PONV PONV - mandrel puller: PONV - mandrel puller Female Yes 05/25/25 10:04 HX of Motion [...] 05/23/25 13:44 Respiratory Assessment Respiratory Assessment - mandrel puller: Respiratory Tract Infection Hx - mandrel puller Hx Respiratory Tract Infection No 05/25/25 10:04 STOP Sleep Apnea STOP Sleep Apnea - mandrel puller: STOP Sleep Apnea - mandrel puller Hx Hypertension Yes 05/25/25 10:04 Hx Sleep [...] Tobacco Use History Tobacco Use History - mandrel puller: Tobacco Use History - mandrel puller Tobacco Use Smoking Status Never smoker 05/25/25 10:04 Hx Tobacco Use No 05/25/25 10:04 Years Smoking Packs Smoked per Day Smoking Cessation Date was within the last 15 years Hx Smoking Cessation Date Hx Smoking Cessation Counseling Hematologic Medial History Hematologic Hx - mandrel puller: 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 Specify any problems Hx of Preganancy in last 3 No 05/25/25 10:04 Months Nurse Filling Out Transfusion [facility] 05/25/25 10:04 Questions: Date: 05/25/25 05/25/25 10:04 Time: 10:10 05/25/25 10:04 Patient unable to answer at this time (ie. confused, unrespo /Reproduction History /Reproductive History - mandrel puller: /Reproductive Hx- mandrel puller Hx Now No 05/25/25 10:04 Gestational Age (in weeks): EDC: Hx Hx Para Hx Section SAB No 05/25/25 10:04 [facility] Medical History (Updated 05/25/25 @ 10:09 [...] 10:03 Family (more content not included)... Normal [facility] Surgery Visit Reporton 05-23 Surgery Visit Report [facility] [address] [place] [address] OFFICE VISIT Date of Service: 05/23/25 MR#: [id number] Acct: [id number] Name: CARLA ANDERSON Rep #: [id number] : 1970 Provider: Dr. Omar koroma MD Age/Sex: 54/F Location: [facility] Status: Signed Intake Vital Signs 04/06/25 10:05 [...] x3 HENMT (more content not included)... Normal [facility] Hepatobilliary Img w/Pharm I nton 05-11-2025 Hepatobilliary Img w/Pharm Int [facility] Imaging Services [address] [place] [address] Hepatobilliary Img w/Pharm Int MR#: [id number] Acct: [id number] Name: CARLA ANDERSON Rep #: [id number] : 1970 F 54 From: Wilberto madrigal MD PCP: Dr. Leah Salvador MD Status: REG [facility] Study: Hepatobilliary Img w/Pharm Int Date of Exam: 0 05/11/25 Exam# [id number] Ordering Dr: Dony Blank PROCEDURE: HEPATOBILLIARY IMG W/PHARM INT 05/11/2025 [...] IMPRESSION: Abnormal gallbladder ejection fraction. Reading Location: [place] [address] CC: Dr. Leah Salvador MD; NELSON Giraldo Production Proofreader: Signed Normal [facility] Absolute lymphocyte countOrd ered By: Dony Blank on 04-06-2025 Lymphocytes Auto (Unsp spec) [#/Vol] 2.81 10*3/uL 0.83-4.51 [facility] Absolute neutrophil countOrd ered By: Dony Blank on 04-06-2025 Neutrophils (Bld) [#/Vol] 3.7 10*3/uL 2.0-7.7 [facility] Amylaseon 04-06-2025 JONE 68 U/L Normal 28-100 [facility] Comment on above: Performed By: #### L 501.2400, L501.2450, L100.0100, L500.4050 ####[facility] [address] [place], [place], [id number] Anion gap in Serum or Plasma Ordered By: Dony Blank on 04-06-2025 Anion gap [Moles/Vol] 11 mmol/L 04-06 [facility] Automated lymphocyte count a s percentage of total leukocytesOrdered By: Dony Blank on 04-06-2025 Lymphocytes/100 WBC Auto (Unsp spec) 39.2 % - [facility] BUN/creatinine ratioOrdered By: Dony Blank on 04-06-2025 Urea nitrogen/Creatinine [Mass ratio] 14.3 mg/mg 10- [facility] Basophil percentageOrdered B y: Dony Blank on 04-06-2025 Basophils/100 WBC (Bld) 0.7 % 0-1 [facility] Bilirubin, totalOrdered By: Dony Blank on 04-06-2025 Bilirubin [Mass/Vol] 0.34 mg/dL 0.00-1.30 [facility] CBC W/Diff, Automatedon -2024 Absolute Lymph 2.81 X10 3/uL Normal 0.83-4.51 [facility] Comment on above: Performed By: #### L 501.2400, L501.2450, L100.0100, L500.4050 ####[facility] [address] [place], [address] Absolute Neut 3.7 X10 3/uL Normal 2.0-7.7 [facility] Comment on above: Performed By: #### L 501.2400, L501.2450, L100.0100, L500.4050 ####[facility] [address] [place], [address] Basophils/100 WBC (Bld) 0.7 % Normal 0-1 [facility] Comment on above: Performed By: #### L 501.2400, L501.2450, L100.0100, L500.4050 ####[facility] [address] [place], [address] Eosinophils/100 WBC (Bld) 1.5 % Normal 0-5 [facility] Comment on above: Performed By: #### L 501.2400, L501.2450, L100.0100, L500.4050 ####[facility] [address] [place], [address] Erythrocyte distribution width (RBC) [Ratio] 12.9 % Normal 11.6-14.6 [facility] Comment on above: Performed By: #### L 501.2400, L501.2450, L100.0100, L500.4050 ####[facility] [address] [place], [address] Hematocrit (Bld) [Volume fraction] 42.7 % Normal 37-47 [facility] Comment on above: Performed By: #### L 501.2400, L501.2450, L100.0100, L500.4050 ####[facility] [address] [place], [address] Hemoglobin (Bld) [Mass/Vol] 14.2 g/dL Normal 12.0-15.0 [facility] Comment on above: Performed By: #### L 501.2400, L501.2450, L100.0100, L500.4050 ####[facility] [address] [place], [address] IG% 0.300 Normal 0.0-0.9 [facility] Comment on above: Result Comment: IG% - Immature Granulocytes (promyelocytes, myelocytes and metamyelocytes) > 1% indicates that a LEFT SHIFT is Present. Performed By: #### L 501.2400, L501.2450, L100.0100, L500.4050 ####[facility] [address] [place], [address] Lymphocytes/100 WBC (Bld) 39.2 % Normal 19-41 [facility] Comment on above: Performed By: #### L 501.2400, L501.2450, L100.0100, L500.4050 ####[facility] [address] [place], [address] MCH (RBC) [Entitic mass] 28.6 pg Normal 27.0-32.0 [facility] Comment on above: Performed By: #### L 501.2400, L501.2450, L100.0100, L500.4050 ####[facility] [address] [place], [address] MCHC (RBC) [Mass/Vol] 33.3 g/dL Normal 32-36 [facility] Comment on above: Performed By: #### L 501.2400, L501.2450, L100.0100, L500.4050 ####[facility] [address] [place], [address] MCV (RBC) [Entitic vol] 85.9 fL Normal 81-99 [facility] Comment on above: Performed By: #### L 501.2400, L501.2450, L100.0100, L500.4050 ####[facility] [address] [place], [address] Monocytes/100 WBC (Bld) 6.8 % Normal 0-10 [facility] Comment on above: Performed By: #### L 501.2400, L501.2450, L100.0100, L500.4050 ####[facility] [address] [place], [address] Neutrophils/100 WBC (Bld) 51.5 % Normal 47-70 [facility] Comment on above: Performed By: #### L 501.2400, L501.2450, L100.0100, L500.4050 ####[facility] [address] [place], [address] Nucleated RBC (Bld) [#/Vol] 0 10*3/uL Normal 0-5 [facility] Comment on above: Performed By: #### L 501.2400, L501.2450, L100.0100, L500.4050 ####[facility] [address] [place], [address] Platelet mean volume (Bld) [Entitic vol] 12.6 fL High 6.2-12.0 [facility] Comment on above: Performed By: #### L 501.2400, L501.2450, L100.0100, L500.4050 ####[facility] [address] [place], [address] Platelets (Bld) [#/Vol] 266 10*3/uL Normal 150-450 [facility] Comment on above: Performed By: #### L 501.2400, L501.2450, L100.0100, L500.4050 ####[facility] [address] [place], [address] RBC (Bld) [#/Vol] 4.97 10*6/uL Normal 4.2-5.4 [facility] Comment on above: Performed By: #### L 501.2400, L501.2450, L100.0100, L500.4050 ####[facility] [address] [place], [address] RDW SD 40.2 fl Normal 35.1-43.9 [facility] Comment on above: Performed By: #### L 501.2400, L501.2450, L100.0100, L500.4050 ####[facility] [address] [place], [address] WBC (Bld) [#/Vol] 7.2 10*3/uL Normal 4.4-11.0 [facility] Comment on above: Performed By: #### L 501.2400, L501.2450, L100.0100, L500.4050 ####[facility] [address] [place], [address] Carbon dioxide, total [Moles /volume] in Central venous bloodOrdered By: Dony Blank on 04-06-2025 CO2 [Moles/Vol] 25.4 mmol/L 21.0-32.0 [facility] Chloride assayOrdered By: Yang Blank on 04-06-2025 Chloride [Moles/Vol] 101 mmol/L 98-108 [facility] Comprehensive Metabolic Prof ilon 04-06-2025 Albumin [Mass/Vol] 4.3 g/dL Normal 3.5-5.0 [facility] Comment on above: Performed By: #### L 501.2400, L501.2450, L100.0100, L500.4050 ####[facility] [address] [place], [address] Albumin/Globulin [Mass ratio] 1.2 {ratio} Normal 0.9-2.4 [facility] Comment on above: Performed By: #### L 501.2400, L501.2450, L100.0100, L500.4050 ####[facility] [address] [place], [address] ALK PHOS 85 U/L Normal 35-104 [facility] Comment on above: Performed By: #### L 501.2400, L501.2450, L100.0100, L500.4050 ####[facility] [address] [place], [address] ALT [Catalytic activity/Vol] 12 U/L Normal <=34 [facility] [facility] Comment on above: Performed By: #### L 501.2400, L501.2450, L100.0100, L500.4050 ####[facility] [address] [place], [address] AST [Catalytic activity/Vol] 17 U/L Normal <=31 [facility] Comment on above: Performed By: #### L 501.2400, L501.2450, L100.0100, L500.4050 ####[facility] [address], [address] Bilirubin [Mass/Vol] 0.34 mg/dL Normal 0.00-1.30 [facility] Comment on above: Performed By: #### L 501.2400, L501.2450, L100.0100, L500.4050 ####[facility] [address] [place], [address] BUN/CRE 14.3 RATIO Normal 10-20 [facility] Comment on above: Performed By: #### L 501.2400, L501.2450, L100.0100, L500.4050 ####[facility] [address] [place], [address] Calcium [Mass/Vol] 9.8 mg/dL Normal 7.6-11.0 [facility] Comment on above: Performed By: #### L 501.2400, L501.2450, L100.0100, L500.4050 ####[facility] [address] [place], [address] Chloride [Moles/Vol] 101 mmol/L Normal 98-108 [facility] Comment on above: Performed By: #### L 501.2400, L501.2450, L100.0100, L500.4050 ####[facility] [address] [place], [address] CO2 [Moles/Vol] 25.4 mmol/L Normal 21.0-32.0 [facility] Comment on above: Performed By: #### L 501.2400, L501.2450, L100.0100, L500.4050 ####[facility] [address] [place], [address] Creatinine [Mass/Vol] 0.58 mg/dL Low 0.70-1.20 [facility] Comment on above: Performed By: #### L 501.2400, L501.2450, L100.0100, L500.4050 ####[facility] [address] [place], [address] GAP 11 Normal 5-15 [facility] Comment on above: Performed By: #### L 501.2400, L501.2450, L100.0100, L500.4050 ####[facility] [address] [place], [address] GFR/1.73 sq M.predicted among non-blacks MDRD (S/P/Bld) [Vol rate/Area] 107 mL/min/{1.73_m2} Normal >60 [facility] Comment on above: Result Comment: mL/m in/1.73m2 CKD-EPI Creatinine Equation (2020) Performed By: #### L 501.2400, L501.2450, L100.0100, L500.4050 ####[facility] [address] [place], [address] Globulin (S) [Mass/Vol] 3.7 g/dL Normal 2.2-4.2 [facility] Comment on above: Performed By: #### L 501.2400, L501.2450, L100.0100, L500.4050 ####[facility] [address] [place], [address] Glucose [Mass/Vol] 88 mg/dL Normal 70-99 [facility] Comment on above: Performed By: #### L 501.2400, L501.2450, L100.0100, L500.4050 ####[facility] [address] [place], [address] Potassium [Moles/Vol] 4.7 mmol/L Normal 3.3-5.1 [facility] Comment on above: Performed By: #### L 501.2400, L501.2450, L100.0100, L500.4050 ####[facility] [address] [place], [address] Sodium [Moles/Vol] 137 mmol/L Normal 133-145 [facility] Comment on above: Performed By: #### L 501.2400, L501.2450, L100.0100, L500.4050 ####[facility] [address] [place], [address] T PROT 8.0 g/dL Normal 5.9-8.4 [facility] Comment on above: Performed By: #### L 501.2400, L501.2450, L100.0100, L500.4050 ####[facility] [address] [place], [address] Urea nitrogen [Mass/Vol] 8 mg/dL Normal 4-19 [facility] Comment on above: Performed By: #### L 501.2400, L501.2450, L100.0100, L500.4050 ####[facility] [address] [place], [address] Eosinophil percentageOrdered By: Dony Blank on 04-06-2025 Eosinophils/100 WBC (Bld) 1.5 % 0-5 [facility] Erythrocyte distribution wid th ratioOrdered By: Dony Wayt on 04-06-2025 Erythrocyte distribution width (RBC) [Ratio] 12.9 % 11.6-14.6 [facility] Erythrocyte distribution wid th standard deviationOrdered By: Dony Blank on 04-06-2025 Erythrocyte distribution width (RBC) [Ratio] 40.2 fl 35.1-43.9 [facility] Glomerular filtration rate ( GFR) estimation/1.73 sq m using serum, plasma, or whole bOrdered By: Dony Blank on 04-06-2025 GFR/1.73 sq M.predicted among non-blacks MDRD (S/P/Bld) [Vol rate/Area] 107 mL/min/{1.73_m2} >60 [facility] Comment on above: mL/min/1.73m2 CKD-EP I Creatinine Equation (2020) Hematocrit Auto (Bld) [Volum e fraction]Ordered By: Dony Blank on 04-06-2025 Hematocrit (Bld) [Volume fraction] 42.7 % 37-47 [facility] Hemoglobin measurementOrdere d By: Dony Blank on 04-06-2025 Hemoglobin (Bld) [Mass/Vol] 14.2 g/dL 12.0-15.0 [facility] Immature granulocytes/100 WB C Auto (Bld)Ordered By: Dony Blank on 04-06-2025 Immature granulocytes/100 WBC (Bld) 0.300 % 0.0-0.9 [facility] Comment on above: IG% - Immature Granu locytes (promyelocytes, myelocytes and metamyelocytes) > 1% indicates that a LEFT SHIFT is Present. Internal Medicine Office Vis iton 04-06-2025 Internal Medicine Office Visit [facility] [address] [place], [place] [address] OFFICE VISIT Date of Service: 04/06/25 MR#: [id number] Acct: [id number] Name: CARLA ANDERSON Rep #: [id number] : 1970 Provider: NELSON Giraldo Age/Sex: 54/F Location: [facility] Status: Signed Intake Vital Signs 01/24/25 10:44 [...] UPPER RT SIDE PAIN Chief Complaint: fu Paper Coater Required: No Is patient in pain?: Yes [...] alleviate pressure which is not longer helping. [facility] Medical History Wears contact lenses Wears [...] She admits (more content not included)... Normal [facility] Laboratory - Chemistry and C hemistry - challengeOrdered By: Dony Blank on 04-06-2025 AST [Catalytic activity/Vol] 17 U/L <32 [facility] Lipaseon 04-06-2025 Lipase [Catalytic activity/Vol] 23 U/L Normal 13-75 [facility] Comment on above: Result Comment: Viri collins note: LIPASE revised reference range effective 23. New Lipase methodology. Expected to produce lower values than the previous assay method. NEW Reference Range: 13 - 75 U/L Performed By: #### L 501.2400, L501.2450, L100.0100, L500.4050 ####[facility] [address] [place], [address] Lipase measurementOrdered By : Dony Blank on 04-06-2025 Lipase [Catalytic activity/Vol] 23 U/L 13-75 [facility] Comment on above: Please note:LIPASE r evised reference range effective 23. New Lipase methodology. Expected to produce lower values than the previous assay method. NEW Reference Range: 13 - 75 U/L MCV (mean corpuscular volume ) determinationOrdered By: Dony Blank on 04-06-2025 MCV (RBC) [Entitic vol] 85.9 fL 81-99 [facility] Mean corpuscular hemoglobin (MCH) determinationOrdered By: Dony Blank on 04-06-2025 MCH (RBC) [Entitic mass] 28.6 pg 27.0-32.0 [facility] Mean corpuscular hemoglobin concentration (MCHC) determinationOrdered By: Dony Blank on 04-06-2025 MCHC (RBC) [Mass/Vol] 33.3 g/dL 32-36 [facility] Mean platelet volume determi nationOrdered By: Dony Blank on 04-06-2025 Platelet mean volume (Bld) [Entitic vol] 12.6 fL High 6.2-12.0 [facility] Monocyte percentageOrdered B y: Dony Blank on 04-06-2025 Monocytes/100 WBC (Bld) 6.8 % 0-10 [facility] Neutrophil percentageOrdered By: Dony Blank on 04-06-2025 Neutrophils/100 WBC (Bld) 51.5 % 47-70 [facility] Nucleated red blood cell per centageOrdered By: Dony Blank on 04-06-2025 Nucleated RBC/100 WBC (Bld) [Ratio] 0 % 0-5 [facility] Platelet countOrdered By: Yang ttdesiree Blank on 04-06-2025 Platelets (Bld) [#/Vol] 266 10*3/uL 150-450 [facility] Potassium measurement (mass/ volume)Ordered By: Dony Blank on 04-06-2025 Potassium (Unsp spec) [Mass/Vol] 4.7 mmol/L 3.3-5.1 [facility] RBC Auto (Bld) [#/Vol]Ordere d By: Dony Blank on 04-06-2025 RBC (Bld) [#/Vol] 4.97 10*6/uL 4.2-5.4 [facility] Serum creatinine measurement (mass/volume)Ordered By: Dony Blank on 04-06-2025 Creatinine [Mass/Vol] 0.58 mg/dL Low 0.70-1.20 [facility] Serum globulin measurementOr dered By: Dony Blank on 04-06-2025 Globulin (S) [Mass/Vol] 3.7 g/dL 2.2-4.2 [facility] Serum glucose measurement (m ass/volume)Ordered By: Dony Blank on 04-06-2025 Glucose [Mass/Vol] 88 mg/dL 70-99 [facility] Serum or plasma alanine zapata otransferase (ALT) measurementOrdered By: Dony Blank on 04-06-2025 ALT [Catalytic activity/Vol] 12 U/L <35 [facility] Serum or plasma albumin estefania urement (mass/volume)Ordered By: Dony Blank on 04-06-2025 Albumin [Mass/Vol] 4.3 g/dL 3.5-5.0 [facility] Serum or plasma albumin/glob ulin mass ratioOrdered By: Dony Blank on 04-06-2025 Albumin/Globulin [Mass ratio] 1.2 {ratio} 0.9-2.4 [facility] Serum or plasma alkaline russel sphatase measurementOrdered By: Dony Blank on 04-06-2025 ALP [Catalytic activity/Vol] 85 U/L 35-104 [facility] Serum or plasma amylase estefania urement (enzymatic activity/volume)Ordered By: Dony Blank on 04-06-2025 Amylase [Catalytic activity/Vol] 68 U/L 28-100 [facility] Serum or plasma calcium estefania urement (mass/volume)Ordered By: Dony Blank on 04-06-2025 Calcium [Mass/Vol] 9.8 mg/dL 7.6-11.0 [facility] Serum or plasma urea nitroge n measurement (mass/volume)Ordered By: Dony Blank on 04-06-2025 Urea nitrogen [Mass/Vol] 8 mg/dL 4-19 [facility] Sodium levelOrdered By: Gurdeep Blank on 04-06-2025 Sodium [Moles/Vol] 137 mmol/L 133-145 [facility] Total proteinOrdered By: Servando Blank on 04-06-2025 Protein [Mass/Vol] 8.0 g/dL 5.9-8.4 [facility] White blood cell (WBC) count Ordered By: Dony Blank on 04-06-2025 WBC (Bld) [#/Vol] 7.2 10*3/uL 4.4-11.0 [facility] Internal Medicine Office Vis jamshid 03-03-2025 Internal Medicine Office Visit [facility] [address] [place] [address] [place] [address] OFFICE VISIT Date of Service: 01/24/25 MR#: [id number] Acct: [id number] Name: CARLA ANDERSON Rep #: [id number] : 1970 Provider: Dr. Leah guadarrama MD Age/Sex: 54/F Location: [facility] Status: Signed Intake Vital Signs 12/06/24 07:07 [...] Intake Visit Reasons: fu Chief Complaint: fu Paper Coater Required: No Accompanied by: Self Is patient [...] excessive swea (more content not included)... Normal [facility] Cardiac Cath Diagnosticon Cardiac Cath Diagnostic [facility] Imaging Services [address] [place] [address] Cardiac Cath Diagnostic MR#: [id number] Acct: [id number] Name: CARLA ANDERSON REBECCA Rep #: [id number] : 1970 54 From: Carlos Muniz MD PCP: Dr. Leah Salvador MD Status:REG [facility] Patient Name: CARLA ANDERSON Study Date: 12/06/2024 Performing: Carlos Muniz MD Ht: 68 inches 172.72 cm : 1970 Wt: 222.01 lbs 100.7 kg Age: 54 Gender: female BSA: 2.14 PROCEDURE(S) PERFORMED DC01-(17120)LHC/COR/LV CLINICAL PROFILE AND INDICATIONS Indications: Suspected CAD [...] multiple views using a 5 Fr. 4.0 Alto catheter. Right Coronary Artery selective angiography was then performed in multiple views using a 5 Fr. 4.0 [place] catheter. Left Ventriculography was performed in [place] [...] Carlos Muniz MD 12/06/24 0825 Date Carlos Amaraligner Signature: Date (if indicated) CC: Dr. Leah Salvador MD; Dr. Carlos Muniz MD Date Dictated: 12/06/24799 Date Transcribed: 12/06/24823 Production Proofreader: CO Signed Normal [facility] 12 Lead EKG performed by [facility] on 11-28-2024 12 Lead EKG performed by [address] [address] 12 Lead EKG performed by [facility] 11/28/241044 MR#: [id number] Acct: [id number] Name: CARLA ANDERSON Rep #: [id number] : 1970 54 From: Shyam Valencia MD Attending Dr: Dr. Shyam Valencia MD Status: DE P AMB Ordering Dr: Shyam Valencia MD Date: 11/28/24 Location: [facility] Sex: F C Admitted: [facility]/12 Lead EKG performed by [facility] ECG Report Interpretation ---Sinus Rhythm WITHIN NORMAL LIMITSElectronically signed on 11/28/2024 at 14:[address] Shyam Valencia [employer] Version 8610 11/28/24 1450 Date Shyam Valencia MD CC: Dr. Leah Salvador MD Date Dictated: 11/28/241044 Date Transcribed: 11/28/241044 Production Proofreader: Signed Normal [facility] Basic Metabolic Profile (BMP )on 11-28-2024 BUN/CRE 11.8 RATIO Normal 10-20 [facility] Comment on above: Performed By: #### L 300.3900, L500.2500, L100.0100 ####[facility] [address] [place], [address] CA,Total 9.3 mg/dL Normal 8.5-10.1 [facility] Comment on above: Performed By: #### L 300.3900, L500.2500, L100.0100 ####[facility] [address] [place], [address] Chloride [Moles/Vol] 105 mmol/L Normal 98-107 [facility] Comment on above: Performed By: #### L 300.3900, L500.2500, L100.0100 ####[facility] [address] [place], [address] CO2 [Moles/Vol] 30.0 mmol/L Normal 21.0-32.0 [facility] Comment on above: Performed By: #### L 300.3900, L500.2500, L100.0100 ####[facility] [address] [place], [address] Creatinine [Mass/Vol] 0.85 mg/dL Normal 0.55-1.02 [facility] Comment on above: Result Comment: The validity of the calculated GFR GFRAA in patients over 70 years has not been determined. Clinical correlation is essential. Performed By: #### L 300.3900, L500.2500, L100.0100 ####[facility] [address] [place], [address] EST GFR - AA 90 mL/min Normal >60 [facility] Comment on above: Result Comment: Afri can Slovak GFR Calc Performed By: #### L 300.3900, L500.2500, L100.0100 ####[facility] [address] [place], [address] GAP 5 Normal 5-15 [facility] Comment on above: Performed By: #### L 300.3900, L500.2500, L100.0100 ####[facility] [address] [place], [address] GFR/1.73 sq M.predicted among non-blacks MDRD (S/P/Bld) [Vol rate/Area] 74 mL/min/{1.73_m2} Normal >60 [facility] Comment on above: Result Comment: Non- GFR Calc Performed By: #### L 300.3900, L500.2500, L100.0100 ####[facility] [address] [place], [address] Glucose [Mass/Vol] 123 mg/dL High 74-106 [facility] Comment on above: Result Comment: Fast ing Glucose result from 100 to 125 mg/dL suggests IMPAIRED HOMEOSTASIS per A.D.A. criteria. Performed By: #### L 300.3900, L500.2500, L100.0100 ####[facility] [address] [place], [address] Potassium [Moles/Vol] 3.9 mmol/L Normal 3.5-5.1 [facility] Comment on above: Performed By: #### L 300.3900, L500.2500, L100.0100 ####[facility] [address] [place], [address] Sodium [Moles/Vol] 140 mmol/L Normal 136-145 [facility] Comment on above: Performed By: #### L 300.3900, L500.2500, L100.0100 ####[facility] [address] [place], [address] Urea nitrogen [Mass/Vol] 10 mg/dL Normal 7-18 [facility] Comment on above: Performed By: #### L 300.3900, L500.2500, L100.0100 ####[facility] [address] [place], [address] CBC W/Diff, Automatedon 01-0 -2024 Absolute Lymph 2.29 X10 3/uL Normal 0.83-4.51 [facility] Comment on above: Performed By: #### L 300.3900, L500.2500, L100.0100 #### [facility] Laboratory [address] [place], [address] Absolute Neut 5.3 X10 3/uL Normal 2.0-7.7 [facility] Comment on above: Performed By: #### L 300.3900, L500.2500, L100.0100 #### [facility] [address] [place], [address] Basophils/100 WBC (Bld) 0.7 % Normal 0-1 [facility] Comment on above: Performed By: #### L 300.3900, L500.2500, L100.0100 #### [facility] [address] [place], [address] Eosinophils/100 WBC (Bld) 1.6 % Normal 0-5 [facility] Comment on above: Performed By: #### L 300.3900, L500.2500, L100.0100 #### [facility] [address] [place], [address] Erythrocyte distribution width (RBC) [Ratio] 12.8 % Normal 11.6-14.6 [facility] Comment on above: Performed By: #### L 300.3900, L500.2500, L100.0100 #### [facility] [address] [place], [address] Hematocrit (Bld) [Volume fraction] 40.3 % Normal 37-47 [facility] Comment on above: Performed By: #### L 300.3900, L500.2500, L100.0100 #### [facility] [address] [place], [address] Hemoglobin (Bld) [Mass/Vol] 13.5 g/dL Normal 12.0-15.0 [facility] Comment on above: Performed By: #### L 300.3900, L500.2500, L100.0100 #### [facility] [address] [place], [address] IG% 0.500 Normal 0.0-0.9 [facility] Comment on above: Result Comment: IG% - Immature Granulocytes (promyelocytes, myelocytes and metamyelocytes) > 1% indicates that a LEFT SHIFT is Present. Performed By: #### L 300.3900, L500.2500, L100.0100 #### [facility] [address] [place], [address] Lymphocytes/100 WBC (Bld) 26.8 % Normal 19-41 [facility] Comment on above: Performed By: #### L 300.3900, L500.2500, L100.0100 #### [facility] [address] [place], [address] MCH (RBC) [Entitic mass] 28.5 pg Normal 27.0-32.0 [facility] Comment on above: Performed By: #### L 300.3900, L500.2500, L100.0100 #### [facility] [address] [place], [address] MCHC (RBC) [Mass/Vol] 33.5 g/dL Normal 32-36 [facility] Comment on above: Performed By: #### L 300.3900, L500.2500, L100.0100 #### [facility] [address] [place], [address] MCV (RBC) [Entitic vol] 85.0 fL Normal 81-99 [facility] Comment on above: Performed By: #### L 300.3900, L500.2500, L100.0100 #### [facility] [address] [place], [address] Monocytes/100 WBC (Bld) 7.8 % Normal 0-10 [facility] Comment on above: Performed By: #### L 300.3900, L500.2500, L100.0100 #### [facility] [address] [place], [address] Neutrophils/100 WBC (Bld) 62.6 % Normal 47-70 [facility] Comment on above: Performed By: #### L 300.3900, L500.2500, L100.0100 #### [facility] [address] [place], [address] Nucleated RBC (Bld) [#/Vol] 0 10*3/uL Normal 0-5 [facility] Comment on above: Performed By: #### L 300.3900, L500.2500, L100.0100 #### [facility] [address] [place], [address] Platelet mean volume (Bld) [Entitic vol] 12.8 fL High 6.2-12.0 [facility] Comment on above: Performed By: #### L 300.3900, L500.2500, L100.0100 #### [facility] [address] [place], [address] Platelets (Bld) [#/Vol] 226 10*3/uL Normal 150-450 [facility] Comment on above: Performed By: #### L 300.3900, L500.2500, L100.0100 #### [facility] [address] [place], [address] RBC (Bld) [#/Vol] 4.74 10*6/uL Normal 4.2-5.4 [facility] Comment on above: Performed By: #### L 300.3900, L500.2500, L100.0100 #### [facility] [address] [place], [address] RDW SD 39.4 fl Normal 35.1-43.9 [facility] Comment on above: Performed By: #### L 300.3900, L500.2500, L100.0100 #### [facility] [address] [place], [address] WBC (Bld) [#/Vol] 8.5 10*3/uL Normal 4.4-11.0 [facility] Comment on above: Performed By: #### L 300.3900, L500.2500, L100.0100 #### [facility] [address] [place], [address] Cardiology Visit Reporton Cardiology Visit Report [facility] [address] [place] [address] OFFICE VISIT Date of Service: 11/28/24 MR#: [id number] Acct: [id number] Name: CARLA ANDERSON Rep #: [id number] : 1970 Provider: Dr. Shyam sesay MD Age/Sex: 54/F Location: [facility] [facility] Status: Signed HPI HPI History [...] air Intake Visit Reasons: ABN Stress (Madeleine) Paper Coater Required: No Accompanied by: Self Is patient [...] (chest t (more content not included)... Normal [facility] Chest PA and Lateralon 11-28 Chest PA and Lateral [facility] Imaging Services [address] [place] [address] Chest PA and Lateral MR#: [id number] Acct: [id number] Name: CARLA ANDERSON Rep #: [id number] : 1970 F 54 From: Ellen garcia MD PCP: Dr. Leah Salvador MD Status: REG CLI Study: Chest PA and Lateral Date of Exam: 11/28/24 Exam# [id number] Ordering [place]: [place] [id number] HISTORY: Cath pre op. TECHNIQUE: XR Chest [...] Leah Salvador MD; Dr. Shyam Valencia MD Production Proofreader: Signed Normal [facility] Prothrombin Time w/INRon INR Coag (PPP) [Relative time] 1.0 {INR} Normal [facility] Comment on above: Performed By: #### L 300.3900, L500.2500, L100.0100 ####[facility] [address] [place], [address] PT Coag (PPP) [Time] 13.0 s Normal 11.7-14.9 [facility] Comment on above: Performed By: #### L 300.3900, L500.2500, L100.0100 ####[facility] [address] [place], [address] Hemoglobin A1con 11-01-2024 HbA1c (Bld) [Mass fraction] 5.6 % Normal 3.8-5.6 [facility] Comment on above: Result Comment: Norm al < 5.7 % Prediabetic 5.7 - 6.4 % Diabetic >or= 6.5 % Please note range changes. Performed By: #### L 501.9985 #### [facility] Laboratory [address] [place], [address] Internal Medicine Office Vis iton 10-19-2024 Internal Medicine Office Visit [facility] [address] [place] [address] [place] [address] OFFICE VISIT Date of Service: 10/24/24 MR#: [id number] Acct: [id number] Name: CARLA ANDERSON Rep #: [id number] : 1970 Provider: Dr. Leah guadarrama MD Age/Sex: 54/F Location: [facility] [place] Status: Signed Intake Vital Signs 04/20/24 07:28 [...] air Intake Visit Reasons: 6 M FU Paper Coater Required: No Is patient in pain?: No [...] stress results as she never heard back. [facility] Medical History Wears contact lenses Wears [...] patient continues to do well on the [facility] for [facility] health. She reports that [...] ED in (more content not included)... Normal [facility] Absolute lymphocyte countOrd ered By: Dony Blank on 02-24-2024 Lymphocytes Auto (Unsp spec) [#/Vol] 1.09 10*3/uL 0.83-4.51 [facility] Automated lymphocyte count a s percentage of total leukocytesOrdered By: Dony Blank on 02-24-2024 Lymphocytes/100 WBC Auto (Unsp spec) 16.1 % 19-41 [facility] Basophil percentageOrdered B y: Dony Blank on 02-24-2024 Basophils/100 WBC (Bld) 0.7 % 0-1 [facility] Bilirubin [Mass/Vol] 0.20 mg/dL 0.20-1.00 [facility] Comment on above: For patients on eltr ombopag therapy, use of Dimension [place] TBIL is not recommended. Chloride [Moles/Vol] 103 mmol/L 98-107 [facility] Eosinophils/100 WBC (Bld) 1.6 % 0-5 [facility] Glucose [Mass/Vol] 146 mg/dL 74-106 [facility] Comment on above: Fasting Glucose resu lt greater than or equal to 126 mg/dL suggests DIABETES MELLITUS per A.D.A. criteria. Hemoglobin (Bld) [Mass/Vol] 13.5 g/dL 12.0-15.0 [facility] Monocytes/100 WBC (Bld) 12.1 % 0-10 [facility] Neutrophils (Bld) [#/Vol] 4.7 10*3/uL 2.0-7.7 [facility] Neutrophils/100 WBC (Bld) 69.2 % 47-70 [facility] Potassium [Moles/Vol] 4.0 mmol/L 3.5-5.1 [facility] Protein [Mass/Vol] 7.8 g/dL 6.4-8.2 [facility] Sodium [Moles/Vol] 137 mmol/L 136-145 [facility] WBC (Bld) [#/Vol] 6.8 10*3/uL 4.4-11.0 [facility] Determination of erythrocyte mean corpuscular volume (MCV)Ordered By: Dony Blank on 02-24-2024 MCV (RBC) [Entitic vol] 84.9 fL 81-99 [facility] Erythrocyte distribution wid th ratioOrdered By: Dony Blank on 02-24-2024 Erythrocyte distribution width (RBC) [Ratio] 13.2 % 11.6-14.6 [facility] Erythrocyte distribution wid th standard deviationOrdered By: Dony Blank on 02-24-2024 Erythrocyte distribution width (RBC) [Entitic vol] 41.3 fL 35.1-43.9 [facility] Hematocrit Auto (Bld) [Volum e fraction]Ordered By: Dony Blank on 02-24-2024 Hematocrit (Bld) [Volume fraction] 40.9 % 37-47 [facility] Immature granulocytes/100 WB C Auto (Bld)Ordered By: Dony Blank on 02-24-2024 Immature granulocytes/100 WBC (Bld) 0.300 % 0.0-0.9 [facility] Comment on above: IG% - Immature Granu locytes (promyelocytes, myelocytes and metamyelocytes) > 1% indicates that a LEFT SHIFT is Present. Laboratory - Chemistry and C hemistry - challengeOrdered By: Dony Blank on 02-24-2024 Albumin/Globulin [Mass ratio] 0.8 {ratio} 0.9-2.4 [facility] ALP [Catalytic activity/Vol] 93 U/L 45-117 [facility] ALT [Catalytic activity/Vol] 52 U/L 13-56 [facility] CO2 [Moles/Vol] 28.0 mmol/L 21.0-32.0 [facility] Globulin (S) [Mass/Vol] 4.3 g/dL 2.2-4.2 [facility] Urea nitrogen/Creatinine [Mass ratio] 11.5 mg/mg 10-20 [facility] Laboratory - Hematology and Cell countsOrdered By: Dony Blank on 02-24-2024 MCH (RBC) [Entitic mass] 28.0 pg 27.0-32.0 [facility] MCHC (RBC) [Mass/Vol] 33.0 g/dL 32-36 [facility] Nucleated RBC/100 WBC (Bld) [Ratio] 0 % 0-5 [facility] Platelet mean volume (Bld) [Entitic vol] 12.7 fL 6.2-12.0 [facility] Platelets (Bld) [#/Vol] 219 10*3/uL 150-450 [facility] No Panel InformationOrdered By: Dony Blank on 02-24-2024 Estimated GFR (MDRD) Amer 132 mL/min >60 [facility] Comment on above: GFR Calc Estimated GFR (MDRD) Non-Af Amer 109 mL/min >60 [facility] Comment on above: Non- GFR Calc Troponin I High Sensitivity 4 pg/mL 3.0-54.0 [facility] Comment on above: Please Note: New Amparo t Units and Gender Specific Reference Ranges. For more information see Policy Stat Procedure [place] High Sensitivity Troponin (TNIH) and attachments. RBC Auto (Bld) [#/Vol]Ordere d By: Dony Blank on 02-24-2024 RBC (Bld) [#/Vol] 4.82 10*6/uL 4.2-5.4 [facility] Serum or plasma calcium estefania urement (mass/volume)Ordered By: Dony Blank on 02-24-2024 Calcium [Mass/Vol] 8.8 mg/dL 8.5-10.1 [facility] Serum or plasma creatinine m easurement (mass/volume)Ordered By: Dony Blank on 02-24-2024 Creatinine [Mass/Vol] 0.61 mg/dL 0.55-1.02 [facility] Comment on above: The validity of the calculated GFR & GFRAA in patients over 70 years has not been determined. Clinical correlation is essential. Serum or plasma thyroid stim ulating hormone (TSH) measurement (units/volume)Ordered By: Dony Blank on 02-24-2024 TSH Qn 1.15 uIU/mL 0.358-3.74 [facility] Serum or plasma urea nitroge n measurement (mass/volume)Ordered By: Dony Blank on 02-24-2024 Urea nitrogen [Mass/Vol] 7 mg/dL 7-18 [facility] Thin prep Papanicolaou smear with manual screeningOrdered By: Dony Blank on 02-24-2024 Thin prep Papanicolaou smear with manual screening 3.5 g/dL 3.2-5.0 [facility] Thin prep Papanicolaou smear with manual screening 45 U/L 15-37 [facility] Thin prep Papanicolaou smear with manual screening 6 5-15 [facility] Whole blood hemoglobin A1c/t otal hemoglobin ratio (mass fraction)Ordered By: Leah Salvador on 09-21-2023 HbA1c (Bld) [Mass fraction] 6.2 % 3.8-5.6 [facility] Comment on above: Normal < 5.7 % Predi abetic 5.7 - 6.4 % Diabetic >or= 6.5 % Please note range changes. Basophil percentageOrdered B y: HEALTH ASSESSMENT on 09-03-2023 Cholesterol [Mass/Vol] 254 mg/dL <200 [facility] Comment on above: <200 mg/dL Desirable 200-240 mg/dL Borderline >240 mg/dL High Risk Glucose [Mass/Vol] 138 mg/dL 74-106 [facility] Comment on above: Fasting Glucose resu lt greater than or equal to 126 mg/dL suggests DIABETES MELLITUS per A.D.A. criteria. Triglyceride [Mass/Vol] 254 mg/dL <199 [facility] Comment on above: The drugs N-Acetylcy steine and Metamizole may falsely depress this assay.Serum Triglycerides Reference Interval Normal <150 mg/dL Borderline high 150 - 199 mg/dL High 200 - 499 mg/dL Very High > or = 500 mg/dL Serum or plasma cholesterol in HDL measurement (mass/volume)Ordered By: HEALTH ASSESSMENT on 09-03-2023 Cholesterol in HDL [Mass/Vol] 49 mg/dL >40 [facility] Comment on above: The drugs N-Acetylcy steine and Metamizole may falsely depress this assay. Reference Range HDL <40 mg/dL Low HDL Cholesterol HDL >or= 60 mg/dL High HDL Cholesterol Serum or plasma cholesterol in VLDL measurement (mass/volume)Ordered By: HEALTH ASSESSMENT on 09-03-2023 Cholesterol in VLDL [Mass/Vol] 51 mg/dL 5-40 [facility] Serum or plasma low density lipoprotein (LDL) cholesterol measurement (mass/volume)Ordered By: HEALTH ASSESSMENT on 09-03-2023 Cholesterol in LDL [Mass/Vol] 154 mg/dL 0-130 [facility] Culture, urineOrdered By: Honorio Salvador on 08-07-2023 Bacteria identified Cx Nom (U) Positive [facility] Absolute lymphocyte countOrd ered By: Leah Salvador on 08-03-2023 Lymphocytes Auto (Unsp spec) [#/Vol] 2.69 10*3/uL 0.83-4.51 [facility] Basophil percentageOrdered B y: Leah Salvador on 08-03-2023 Basophil percentage 10-25 SEEN /hpf 0-5 [facility] Basophils/100 WBC (Bld) 0.8 % 0-1 [facility] Bilirubin [Mass/Vol] 0.30 mg/dL 0.20-1.00 [facility] Comment on above: For patients on eltr ombopag therapy, use of Dimension [place] TBIL is not recommended. Chloride [Moles/Vol] 104 mmol/L 98-107 [facility] Cholesterol [Mass/Vol] 263 mg/dL <200 [facility] Comment on above: <200 mg/dL Desirable 200-240 mg/dL Borderline >240 mg/dL High Risk Eosinophils/100 WBC (Bld) 2.2 % 0-5 [facility] Glucose [Mass/Vol] 93 mg/dL 74-106 [facility] Neutrophils (Bld) [#/Vol] 3.9 10*3/uL 2.0-7.7 [facility] Neutrophils/100 WBC (Bld) 52.6 % 47-70 [facility] Potassium [Moles/Vol] 3.9 mmol/L 3.5-5.1 [facility] Protein [Mass/Vol] 8.3 g/dL 6.4-8.2 [facility] Sodium [Moles/Vol] 137 mmol/L 136-145 [facility] Triglyceride [Mass/Vol] 283 mg/dL <199 [facility] Comment on above: The drugs N-Acetylcy steine and Metamizole may falsely depress this assay.Serum Triglycerides Reference Interval Normal <150 mg/dL Borderline high 150 - 199 mg/dL High 200 - 499 mg/dL Very High > or = 500 mg/dL WBC (Bld) [#/Vol] 7.3 10*3/uL 4.4-11.0 [facility] Bilirubin Test strip Ql (U)O rdered By: Leah Salvador on 08-03-2023 Bilirubin Ql (U) Negative Negative [facility] Blood erythrocytes count (nu mber/volume)Ordered By: Leah Salvador on 08-03-2023 RBC (Bld) [#/Vol] 4.72 10*6/uL 4.2-5.4 [facility] Blood hemoglobin measurement (mass/volume)Ordered By: Leah Salvador on 08-03-2023 Hemoglobin (Bld) [Mass/Vol] 13.4 g/dL 12.0-15.0 [facility] Blood lymphocytes/100 leukoc ytesOrdered By: Leah Salvador on 08-03-2023 Lymphocytes/100 WBC (Bld) 36.7 % 19-41 [facility] Blood monocytes/100 leukocyt esOrdered By: Leah Salvador on 08-03-2023 Monocytes/100 WBC (Bld) 7.2 % 0-10 [facility] Blood platelet mean volumeOr dered By: Leah Salvador on 08-03-2023 Platelet mean volume (Bld) [Entitic vol] 12.1 fL 6.2-12.0 [facility] Determination of erythrocyte mean corpuscular volume (MCV)Ordered By: Leah Salvador on 08-03-2023 MCV (RBC) [Entitic vol] 87.1 fL 81-99 [facility] Hematocrit Auto (Bld) [Volum e fraction]Ordered By: Leah Salvador on 08-03-2023 Hematocrit (Bld) [Volume fraction] 41.1 % 37-47 [facility] Ketones Test strip Ql (U)Ord ered By: Leah Salvador on 08-03-2023 Ketones Ql (U) Negative Negative [facility] Laboratory - Chemistry and C hemistry - challengeOrdered By: Leah Salvador on 08-03-2023 ALP [Catalytic activity/Vol] 88 U/L 45-117 [facility] ALT [Catalytic activity/Vol] 22 U/L 13-56 [facility] CO2 [Moles/Vol] 26.0 mmol/L 21.0-32.0 [facility] Globulin (S) [Mass/Vol] 4.6 g/dL 2.2-4.2 [facility] Urea nitrogen/Creatinine [Mass ratio] 13.1 mg/mg 10-20 [facility] Laboratory - Hematology and Cell countsOrdered By: Leah Salvador on 08-03-2023 Erythrocyte distribution width (RBC) [Entitic vol] 41.4 fL 35.1-43.9 [facility] Erythrocyte distribution width (RBC) [Ratio] 13.0 % 11.6-14.6 [facility] Immature granulocytes/100 WBC (Bld) 0.500 % 0.0-0.9 [facility] Comment on above: IG% - Immature Granu locytes (promyelocytes, myelocytes and metamyelocytes) > 1% indicates that a LEFT SHIFT is Present. MCH (RBC) [Entitic mass] 28.4 pg 27.0-32.0 [facility] Nucleated RBC/100 WBC (Bld) [Ratio] 0 % 0-5 [facility] MCHC Auto (RBC) [Mass/Vol]Or dered By: Leah Salvador on 08-03-2023 MCHC (RBC) [Mass/Vol] 32.6 g/dL 32-36 [facility] Mucus LM Ql (Urine sed)Order ed By: Leah Salvador on 08-03-2023 Mucus Ql (Urine sed) 0 SEEN /hpf [facility] Nitrite Test strip Ql (U)Ord ered By: Leah Salvador on 08-03-2023 Nitrite Ql (U) Negative Negative [facility] No Panel InformationOrdered By: Leah Salvador on 08-03-2023 Estimated GFR (MDRD) Amer 102 mL/min >60 [facility] Comment on above: GFR Calc Estimated GFR (MDRD) Non-Af Amer 84 mL/min >60 [facility] Comment on above: Non- GFR Calc Thyroid Stimulating Hormone (TSH) 1.78 uIU/mL 0.358-3.74 [facility] Vitamin D 25-Hydroxy 20.6 ng/mL [facility] Comment on above: Vitamin D 25(OH) Sta tus Range Deficiency <20 ng/mL (50nmol/L) Insufficiency 20 - 30 ng/mL (50 - 75 nmol/L) Sufficiency 30 - 100 ng/mL (75 - 250 nmol/L) Toxicity >100 ng/mL (>250 nmol/L) Platelets bldOrdered By: David Salvador on 08-03-2023 Platelets (Bld) [#/Vol] 263 10*3/uL 150-450 [facility] Protein Test strip Ql (U)Ord ered By: Leah Salvador on 08-03-2023 Protein Ql (U) Negative Negative [facility] Serum or plasma albumin estefania urement (mass/volume)Ordered By: Leah Salvador on 08-03-2023 Albumin [Mass/Vol] 3.7 g/dL 3.2-5.0 [facility] Serum or plasma albumin/glob ulin mass ratioOrdered By: Leah Salvador on 08-03-2023 Albumin/Globulin [Mass ratio] 0.8 {ratio} 0.9-2.4 [facility] Serum or plasma calcium estefania urement (mass/volume)Ordered By: Leah Salvador on 08-03-2023 Calcium [Mass/Vol] 9.3 mg/dL 8.5-10.1 [facility] Serum or plasma cholesterol in HDL measurement (mass/volume)Ordered By: Leah Salvador on 08-03-2023 Cholesterol in HDL [Mass/Vol] 46 mg/dL >40 [facility] Comment on above: The drugs N-Acetylcy steine and Metamizole may falsely depress this assay. Reference Range HDL <40 mg/dL Low HDL Cholesterol HDL >or= 60 mg/dL High HDL Cholesterol Serum or plasma cholesterol in VLDL measurement (mass/volume)Ordered By: Leah Salvador on 08-03-2023 Cholesterol in VLDL [Mass/Vol] 57 mg/dL 5-40 [facility] Serum or plasma creatinine m easurement (mass/volume)Ordered By: Leah Salvador on 08-03-2023 Creatinine [Mass/Vol] 0.76 mg/dL 0.55-1.02 [facility] Comment on above: The validity of the calculated GFR & GFRAA in patients over 70 years has not been determined. Clinical correlation is essential. Serum or plasma low density lipoprotein (LDL) cholesterol measurement (mass/volume)Ordered By: Leah Salvador on 08-03-2023 Cholesterol in LDL [Mass/Vol] 160 mg/dL 0-130 [facility] Serum or plasma urea nitroge n measurement (mass/volume)Ordered By: Leah Salvador on 08-03-2023 Urea nitrogen [Mass/Vol] 10 mg/dL 7-18 [facility] Squamous epithelial cells de tection in urine sediment by light microscopyOrdered By: Leah Salvador on 08-03-2023 Epithelial cells.squamous LM Ql (Urine sed) 0-5 SEEN /hpf 5-10 [facility] Thin prep Papanicolaou smear with manual screeningOrdered By: Leah Salvador on 08-03-2023 Thin prep Papanicolaou smear with manual screening 13 U/L 15-37 [facility] Thin prep Papanicolaou smear with manual screening 7 5-15 [facility] Urine blood detectionOrdered By: Leah Salvador on 08-03-2023 RBC Ql (U) Negative Negative [facility] RBC Ql (U) 0 SEEN /hpf 0-5 [facility] Urine clarityOrdered By: David Salvador on 08-03-2023 Clarity (U) Clear Clear [facility] Urine color determinationOrd ered By: Leah Salvador on 08-03-2023 Color (U) Yellow Yellow [facility] Urine glucose detectionOrder ed By: Leah Salvador on 08-03-2023 Glucose Ql (U) Normal mg/dl Normal [facility] Urine leukocyte esterase det ection by dipstickOrdered By: Leah Salvador on 08-03-2023 Leukocyte esterase Test strip Ql (U) 100 /ul Negative [facility] Urine pHOrdered By: Leah ramirez on 08-03-2023 pH (U) 6.0 [pH] 5.0 - 8.0 [facility] Urine sediment bacteria coun t by microscopy (number/high power field)Ordered By: Leah Salvador on 08-03-2023 Bacteria LM.HPF (Urine sed) [#/Area] 0 /[HPF] None Seen [facility] Urine specific gravity measu rementOrdered By: Leah Salvador on 08-03-2023 Specific gravity (U) [Rel density] 1.020 1.002-1.030 [facility] Urobilinogen Auto test strip Ql (U)Ordered By: Leah Salvador on 08-03-2023 Urobilinogen Ql (U) Normal mg/dl Normal [facility] Basophil percentageon 2021 Chloride [Moles/Vol] 104 mmol/L 98-107 [facility] Work Phone: Glucose [Mass/Vol] 103 mg/dL 74-106 [facility] Work Phone: Comment on above: Fasting Glucose resu lt from 100 to 125 mg/dL suggests IMPAIRED HOMEOSTASIS per A.D.A. criteria. Potassium [Moles/Vol] 3.9 mmol/L 3.5-5.1 [facility] Work Phone: Sodium [Moles/Vol] 140 mmol/L 136-145 [facility] Work Phone: Laboratory - Chemistry and C hemistry - challengeon 10-14-2022 CO2 [Moles/Vol] 31.0 mmol/L 21.0-32.0 [facility] Work Phone: Urea nitrogen/Creatinine [Mass ratio] 20.3 mg/mg 10-20 [facility] Work Phone: No Panel Informationon 10-14 Estimated GFR (MDRD) Amer 125 mL/min >60 [facility] Work Phone: Comment on above: GFR Calc Estimated GFR (MDRD) Non-Af Amer 103 mL/min >60 [facility] Work Phone: Comment on above: Non- GFR Calc Troponin I High Sensitivity 6 pg/mL 3.0-54.0 [facility] Work Phone: Comment on above: Please Note: New Amparo t Units and Gender Specific Reference Ranges. For more information see Policy Stat Procedure [place] High Sensitivity Troponin (TNIH) and attachments. Serum or plasma calcium estefania urement (mass/volume)on 10-14-2022 Calcium [Mass/Vol] 9.2 mg/dL 8.5-10.1 [facility] Work Phone: [phone] Serum or plasma creatinine m easurement (mass/volume)on 10-14-2022 Creatinine [Mass/Vol] 0.64 mg/dL 0.55-1.02 [facility] Work Phone: Comment on above: The validity of the calculated GFR & GFRAA in patients over 70 years has not been determined. Clinical correlation is essential. Serum or plasma urea nitroge n measurement (mass/volume)on 10-14-2022 Urea nitrogen [Mass/Vol] 13 mg/dL 7-18 [facility] Work Phone: [phone] Thin prep Papanicolaou smear with manual screeningon 10-14-2022 Thin prep Papanicolaou smear with manual screening 5 5-15 [facility] Work Phone: [phone] Absolute lymphocyte counton 09-01-2022 Lymphocytes Auto (Unsp spec) [#/Vol] 2.26 10*3/uL 0.83-4.51 [facility] Work Phone: [phone] Basophil percentageon 2021 Basophils/100 WBC (Bld) 0.9 % 0-1 [facility] Work Phone: [phone] Bilirubin [Mass/Vol] 0.30 mg/dL 0.20-1.00 [facility] Work Phone: Comment on above: For patients on eltr ombopag therapy, use of Dimension [place] TBIL is not recommended. Chloride [Moles/Vol] 105 mmol/L 98-107 [facility] Work Phone: Cholesterol [Mass/Vol] 194 mg/dL <200 [facility] Work Phone: Comment on above: <200 mg/dL Desirable 200-240 mg/dL Borderline >240 mg/dL High Risk Eosinophils/100 WBC (Bld) 2.6 % 0-5 [facility] Work Phone: Glucose [Mass/Vol] 95 mg/dL 74-106 [facility] Work Phone: Neutrophils (Bld) [#/Vol] 3.3 10*3/uL 2.0-7.7 [facility] Work Phone: Neutrophils/100 WBC (Bld) 51.8 % 47-70 [facility] Work Phone: Potassium [Moles/Vol] 4.4 mmol/L 3.5-5.1 [facility] Work Phone: [phone] Protein [Mass/Vol] 7.6 g/dL 6.4-8.2 [facility] Work Phone: Sodium [Moles/Vol] 139 mmol/L 136-145 [facility] Work Phone: Triglyceride [Mass/Vol] 189 mg/dL <199 [facility] Work Phone: Comment on above: The drugs N-Acetylcy steine and Metamizole may falsely depress this assay.Serum Triglycerides Reference Interval Normal <150 mg/dL Borderline high 150 - 199 mg/dL High 200 - 499 mg/dL Very High > or = 500 mg/dL WBC (Bld) [#/Vol] 6.4 10*3/uL 4.4-11.0 [facility] Work Phone: Blood erythrocytes count (nu mber/volume)on 09-01-2022 RBC (Bld) [#/Vol] 4.49 10*6/uL 4.2-5.4 [facility] Work Phone: Blood hemoglobin measurement (mass/volume)on 09-01-2022 Hemoglobin (Bld) [Mass/Vol] 12.6 g/dL 12.0-15.0 [facility] Work Phone: Blood lymphocytes/100 leukoc yteson 09-01-2022 Lymphocytes/100 WBC (Bld) 35.2 % 19-41 [facility] Work Phone: Blood monocytes/100 leukocyt eson 09-01-2022 Monocytes/100 WBC (Bld) 9.2 % 0-10 [facility] Work Phone: Blood platelet mean volumeon 09-01-2022 Platelet mean volume (Bld) [Entitic vol] 13.4 fL 6.2-12.0 [facility] Work Phone: Determination of erythrocyte mean corpuscular volume (MCV)on 09-01-2022 MCV (RBC) [Entitic vol] 87.8 fL 81-99 [facility] Work Phone: Hematocrit Auto (Bld) [Volum e fraction]on 09-01-2022 Hematocrit (Bld) [Volume fraction] 39.4 % 37-47 [facility] Work Phone: Laboratory - Chemistry and C hemistry - challengeon 09-01-2022 ALP [Catalytic activity/Vol] 62 U/L 45-117 [facility] Work Phone: ALT [Catalytic activity/Vol] 22 U/L 13-56 [facility] Work Phone: CO2 [Moles/Vol] 28.0 mmol/L 21.0-32.0 [facility] Work Phone: Globulin (S) [Mass/Vol] 4.2 g/dL 2.2-4.2 [facility] Work Phone: Urea nitrogen/Creatinine [Mass ratio] 11.9 mg/mg 10-20 [facility] Work Phone: Laboratory - Hematology and Cell countson 09-01-2022 Erythrocyte distribution width (RBC) [Entitic vol] 49.0 fL 35.1-43.9 [facility] Work Phone: Erythrocyte distribution width (RBC) [Ratio] 15.4 % 11.6-14.6 [facility] Work Phone: [phone] Immature granulocytes/100 WBC (Bld) 0.300 % 0.0-0.9 [facility] Work Phone: [phone] Comment on above: IG% - Immature Granu locytes (promyelocytes, myelocytes and metamyelocytes) > 1% indicates that a LEFT SHIFT is Present. MCH (RBC) [Entitic mass] 28.1 pg 27.0-32.0 [facility] Work Phone: [phone] Nucleated RBC/100 WBC (Bld) [Ratio] 0 % 0-5 [facility] Work Phone: [phone] MCHC Auto (RBC) [Mass/Vol]on 09-01-2022 MCHC (RBC) [Mass/Vol] 32.0 g/dL 32-36 [facility] Work Phone: No Panel Informationon 09-01 Estimated GFR (MDRD) Amer 118 mL/min >60 [facility] Work Phone: [phone] Comment on above: GFR Calc Estimated GFR (MDRD) Non-Af Amer 97 mL/min >60 [facility] Work Phone: [phone] Comment on above: Non- GFR Calc Vitamin D 25-Hydroxy 21.4 ng/mL [facility] Work Phone: [phone] Comment on above: Vitamin D 25(OH) Sta tus Range Deficiency <20 ng/mL (50nmol/L) Insufficiency 20 - 30 ng/mL (50 - 75 nmol/L) Sufficiency 30 - 100 ng/mL (75 - 250 nmol/L) Toxicity >100 ng/mL (>250 nmol/L) Platelets bldon 09-01-2022 Platelets (Bld) [#/Vol] 219 10*3/uL 150-450 [facility] Work Phone: [phone] Serum or plasma albumin estefania urement (mass/volume)on 09-01-2022 Albumin [Mass/Vol] 3.4 g/dL 3.2-5.0 [facility] Work Phone: Serum or plasma albumin/glob ulin mass ratioon 09-01-2022 Albumin/Globulin [Mass ratio] 0.8 {ratio} 0.9-2.4 [facility] Work Phone: Serum or plasma calcium estefania urement (mass/volume)on 09-01-2022 Calcium [Mass/Vol] 9.1 mg/dL 8.5-10.1 [facility] Work Phone: Serum or plasma cholesterol in HDL measurement (mass/volume)on 09-01-2022 Cholesterol in HDL [Mass/Vol] 49 mg/dL >40 [facility] Work Phone: Comment on above: The drugs N-Acetylcy steine and Metamizole may falsely depress this assay. Reference Range HDL <40 mg/dL Low HDL Cholesterol HDL >or= 60 mg/dL High HDL Cholesterol Serum or plasma cholesterol in VLDL measurement (mass/volume)on 09-01-2022 Cholesterol in VLDL [Mass/Vol] 38 mg/dL 5-40 [facility] Work Phone: Serum or plasma creatinine m easurement (mass/volume)on 09-01-2022 Creatinine [Mass/Vol] 0.68 mg/dL 0.55-1.02 [facility] Work Phone: Comment on above: The validity of the calculated GFR & GFRAA in patients over 70 years has not been determined. Clinical correlation is essential. Serum or plasma low density lipoprotein (LDL) cholesterol measurement (mass/volume)on 09-01-2022 Cholesterol in LDL [Mass/Vol] 107 mg/dL 0-130 [facility] Work Phone: Serum or plasma urea nitroge n measurement (mass/volume)on 09-01-2022 Urea nitrogen [Mass/Vol] 8 mg/dL 7-18 [facility] Work Phone: [phone] Thin prep Papanicolaou smear with manual screeningon 09-01-2022 Thin prep Papanicolaou smear with manual screening 15 U/L 15-37 [facility] Work Phone: [phone] Thin prep Papanicolaou smear with manual screening 6 5-15 [facility] Work Phone: Cervical or vagninal specime n microscopic examination by cytology stain (reported ason 04-01-2022 Cytology report Cyto stain Doc (Cvx/Vag) Comment [facility] Work Phone: Comment on above: The Pap smear is a s creening test designed to aid in thedetection of premalignant and malignant conditions of theuterine cervix. It is not a diagnostic procedure andshould not be used as the sole means of detecting cervicalcancer. Both false-positive and false-negative reports dooccur. Laboratory - Cytologyon 03-23 Teletray Operator Cyto stain Nom (Cvx/Vag) [ID] Comment [facility] Work Phone: Comment on above: Aiden Solo ytotechnologist (ASCP) Laboratory - Miscellaneous t estson 04-01-2022 Service comment (Unsp spec) [Interp] Comment [facility] Work Phone: Comment on above: This liquid based Th inPrep(R) pap test was screened withthe use of an image guided system. Service comment (Unsp spec) [Interp] . [facility] Work Phone: No Panel Informationon 04-01 Human Papillomavirus Screen Comment [facility] Work Phone: Comment on above: The HPV DNA reflex c jenna were not met with this specimenresult therefore, no HPV testing was performed.Performed at: [address] [id number] Director: Georgiana Lindsay MD, Phone: [phone] Pathology report final diagnosis Narrative Comment [facility] Work Phone: Comment on above: NEGATIVE FOR INTRAEP ITHELIAL LESION OR MALIGNANCY. PROGRESSon 11-22-2019 PROGRESS HNO ID: [id number] Author: Nicole Marquez Service: ? Author Type: Ux Research Associate Type: Progress Notes Filed: 11/22/2019 12:39 PM Note Text: [facility] SHELLFISH BED WORKER QUICKNOTE Provider Action/FYI: [email or web address] message read. Patient aware she's due for an appointment and Hm. Patient identified by name and . Nicole Marquez CMA [facility] (INT[facility] CARLA ANDERSON ([id number]) 1970 F Date Time Provider Department 11/18/19 NICOLE MARQUEZ ([facility]) INTMWS During your visit today, we recorded the following information about you: Nicole Marquez CMA 11/22/2019 12:39 PM Signed [facility] GAP REGISTRY DOCUMENTATION (OUTSIDE TEAMLET) Provider [...] r/s 6 month follow up APRIL Scherer CMA 11/22/2019 12:39 PM Signed [facility] SHELLFISH BED WORKER RUPESHE Provider Action/FYI: 1st attempt - MyChart message sent. Patient identified by name and . APRIL Scherer CMA 11/22/2019 12:39 PM Signed [facility] SHELLFISH BED WORKER SANDY Provider Action/FYI: MyChart message read. Patient aware she's due for an appointment and . Patient identified by name and . Nicole Marquez CMA Allergies As of Date: 11/18/2019 (No Known Allergies) Date Reviewed: 03/25/2019 Reviewed by: Rylie Galicia (Aged Or Disabled Care Worker) YASMINE Salas - Fully Assessed Reason for Visit: PHMA/Care Gap Outreach [[id number]] Prescriptions as of 11/18/2019 Sig: ESCITALOPRAM 5 [...] Status:Closed by NICOLE MARQUEZ CMA on 11/22/19 [facility] PROGRESSon 11-18-2019 PROGRESS HNO ID: [id number] Author: Nicole Marquez Service: ? Author Type: Ux Research Associate Type: Progress Notes Filed: 11/22/2019 12:39 PM Note Text: [facility] SHELLFISH BED WORKER SANDY Provider Action/FYI: 1st attempt - MyChart message sent. Patient identified by name and . Nicole Marquez CMA [facility] PROGRESS HNO ID: [id number] Author: Nicole Marquez Service: ? 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 [...] Visit Diagnosis:Right arm pain [M79.601] Order(s):SLING, ARM [[id number]] Order #: [id number] XR WRIST GENERAL 3V PA/LAT/OBL RT [[id number]] Order #: [id number] FUTURE XR HUMERUS 2V AP/LAT RT [[id number]] Order #: [id number] FUTURE XR ELBOW SPECIAL VIEWS AP/LAT/OTHER RT [[id number]] Order #: [id number] FUTURE XR SHOULDER [id number] AP/TRUE AP RT [[id number]] Order #: [id number] FUTURE XR FOREARM GENERAL 2V AP/LAT RT [[id number]] Order #: [id number] FUTURE XR SHOULDER GENERAL 3V OR MORE AP/TRUE AP/OTHER RT [[id number]] Order #: [id number] FUTURE Prescriptions as of 03/25/2019 Sig: ESCITALOPRAM [...] and Disposition History Recorded Encounter Status:Closed by PODLOGAR, JAJA HO on 03/25/19 Normal [facility] PROGRESSon 03-25-2019 PROGRESS HNO ID: [id number] Author: Jaja (Elan) Podlogar Service: ? 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 Patient advised if symptoms do not improve or if symptoms worsen sooner, to contact their primary care physician. Potential red flag symptoms discussed with the patient. Reviewed appropriate action plan to take if red flag symptoms occur. Patient agreeable to treatment plan. Normal [facility] XR FOREARM 2V AP/LAT RTon [...] area of pain 2. Study otherwise unremarkable Production Proofreader: PSCB Transcribe Date/Time: Mar 25 2019 10:09A Dictated by : GEORGIA ULRICH DO This examination was interpreted and the report reviewed and electronically signed by: GEORGIA ULRICH DO on Mar 25 2019 10:36AM EST [id number] Normal [facility] XR HUMERUS 2V AP/LAT RTon [...] area of pain 2. Study otherwise unremarkable Production Proofreader: PSCB Transcribe Date/Time: Mar 25 2019 10:09A Dictated by : GEORGIA ULRICH DO This examination was interpreted and the report reviewed and electronically signed by: GEORGIA ULRICH DO on Mar 25 2019 10:36AM EST [id number] Normal [facility] XR SHLDR >/=3V AP/NEYDA AP/OTH [...] area of pain 2. Study otherwise unremarkable Production Proofreader: PSCB Transcribe Date/Time: Mar 25 2019 10:09A Dictated by : GEORGIA ULRICH DO This examination was interpreted and the report reviewed and electronically signed by: GEORGIA ULRICH DO on Mar 25 2019 10:36AM EST [id number] Normal [facility] PROGRESSon 01-11-2019 PROGRESS HNO ID: [id number] Author: Omid Dunlap Service: (none) Author Type: Psychologist Type: Progress Notes Filed: 01/11/2019 6:42 PM Note Text: [facility] Progress Note Carla Anderson 01/11/2019 [id number] Provider: Omid Dunlap, PHD CPT Code: 83634 Psychiatric diagnostic evaluation Time: Approximately 50 minutes was spent in therapy. Parties Present: Patient Patient Presentation/Concerns: INITIAL VISIT Pt grew up as 4th of 5 in [place] .. father was clinical research spec... went to college... 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 19 and 24 yo boys and 20 and 21 yo girls Anxiety... always a bit fearful.... ie of being alone but recent 2 yrs FEAR OF DRIVING AND FEAR OF SPIDERS ARE QUITE PROBLEMATIC Driving ... fear accident and hurt someone or cause an accident didnt drive til in college and works in [employer] and can drive her to work etc. [...] Psychiatric Medication Issues: see med record DIAGNOSIS: Murdock I: Anxiety Phobia... driving and spiders Murdock II: deferred Murdock III: see med record Murdock IV: phobias Murdock V: 53 Treatment Modality/Interventions: Cognitive Behavioral Reassurance/Supportive Problem solving Psychoeducation TREATMENT ASSESSMENT/PROGRESS: . Progressing satisfactorily. TREATMENT PLAN/GOALS: Continue in therapy focusing on self-care, stress management, affect management and anxiety management. Next appointment: as scheduled Omid Dunlap, PHD [facility] Precious 12-16-2018 CNOV Office Visit (INTMWS ) CARLA ANDERSON ([id number]) 1970 F Date Time Provider Department 12/16/18 4:00 PM ANTONIO MONTILLA During your visit today, we recorded the [...] sleep. She was planning to reengage with advent, and was thinking of starting a hobby. [...] Antonio Montilla MD Referring Provider: ANTONIO MONTILLA [[id number]] Allergies As of Date: 12/16/2018 (No Known [...] by ANTONIO MONTILLA MD on 12/16/18 Normal [facility] PROGRESSon 12-16-2018 PROGRESS HNO ID: [id number] Author: Antonio Montilla Service: (none) Author Type: Physician Type: Progress Notes Filed: 12/16/2018 4:49 PM Note Text: This note was created using NoteWriter. Subjective Carla Anderson was here for follow up of depression and anxiety. She was doing much better and phobias, mood swings, and motivation were so much better. She still had increased sleep. She was planning to reengage with advent, and was thinking of starting a hobby. [...] minutes was spent, all for discussion. Antonio oMntilla MD Normal [facility] Basic Metabolic Panlon 12-09 Anion gap [Moles/Vol] 7 mmol/L Normal [facility] Calcium [Mass/Vol] 9.7 mg/dL Normal 8.5-10.2 [facility] Chloride [Moles/Vol] 103 mmol/L Normal 97-105 [facility] CO2 [Moles/Vol] 27 mmol/L Normal 22-30 [facility] Creatinine [Mass/Vol] 0.64 mg/dL Normal 0.58-0.96 [facility] eGFR- Amer. >60 Normal [facility] GFR/1.73 sq M predicted among non-blacks MDRD (S/P/Bld) [Vol rate/Area] mL/min/{1.73_m2} Normal [facility] Comment on above: Result Comment: [...] GFR. Glucose [Mass/Vol] 95 mg/dL Normal 74-99 [facility] Potassium [Moles/Vol] 4.4 mmol/L Normal 3.7-5.1 [facility] Sodium [Moles/Vol] 137 mmol/L Normal 136-144 [facility] Urea nitrogen [Mass/Vol] 9 mg/dL Normal 7-21 [facility] Lipid Panel, Bas[place] 019 Cholesterol [Mass/Vol] 192 mg/dL Normal <200 [facility] Comment on above: Result Comment: <200 mg/dL, Desirable 200-239 mg/dL, Borderline high >239 mg/dL, High Performed By: #### L IPB #### [facility] [employer] [address], [place] [address] Cholesterol in HDL [Mass/Vol] 48 mg/dL Normal >39 [facility] Comment on above: Result Comment: 40-5 9 mg/dL, Acceptable >59 mg/dL, High: Negative risk factor for coronary heart disease <40 mg/dL, Low: Positive risk factor for coronary heart disease Performed By: #### L IPB #### [facility] [address], [place] [address] Cholesterol in LDL [Mass/Vol] 129 mg/dL High <100 [facility] Comment on above: Result Comment: <100 mg/dL, Optimal 100-129 mg/dL, Near optimal/above optimal 130-159 mg/dL, Borderline high 160-189 mg/dL, High >189 mg/dL, Very high Secondary prevention optimal LDL Cholesterol levels are recommended to be < 70 mg/dL Performed By: #### L IPB #### [facility] [address], [place] [address] Fasting Time 12 hrs Normal [facility] Comment on above: Performed By: #### L IPB #### [facility] [address], [place] [address] LDL:HDL Ratio 2.69 High <2.54 [facility] Comment on above: Result Comment: Refe anselmo: 1. National Cholesterol Education Program ATP III Guideline At-A-Glance Quick Desk Reference: National Heart, Lung, and Blood [place]. National Institutes of Health. 2001: NIH Publication No. 01-3305. 2. An International Atherosclerosis Society position paper: global recommendations for the management of dyslipidemia: executive summary, Atherosclerosis. 2014: 232(2):410-413. Performed By: #### L IPB #### [facility] [employer] [address], [place] [address] Non HDL Cholesterol 144 mg/dL High <130 [facility] Comment on above: Result Comment: <130 mg/dL, Optimal 130-159 mg/dL, Near optimal/above optimal 160-189 mg/dL, Borderline high 190-219 mg/dL, High >219 mg/dL, Very high Secondary prevention optimal non HDL Cholesterol levels are recommended to be < 100 mg/dL Performed By: #### L IPB #### [place] [address] [place] [address] TC:HDL Ratio 4.00 Normal <5.10 [facility] Comment on above: Performed By: #### L IPB #### [address] [place] [address] Triglyceride [Mass/Vol] 76 mg/dL Normal <150 [facility] Comment on above: Result Comment: <150 mg/dL, Normal 150-199 mg/dL, Borderline high 200-499 mg/dL, High >499 mg/dL, Very high Performed By: #### L IPB #### [address] [address] [place] [address] VLDL Cholesterol 15 mg/dL Normal <30 [facility] Comment on above: Performed By: #### L IPB #### [place] [id number] CNPTOUTREACHon 11-30-2018 CNPTOUTREACH Patient Outreach (FAMPST) CARLA ANDERSON ([id number]) 1970 F Date Time Provider Department 11/30/18 ANTONIO MONTILLA FAMPST During your visit today, we recorded the following information about you: Allergies As of Date: 11/30/2018 (No Known Allergies) Date Reviewed: 11/10/2018 Reviewed by: Sara E Mayelin COMMUNITY SUPPORT PROFESSIONAL - Fully Assessed Visit Diagnosis:Medication management [Z79.899] Order(s):BASIC METABOLIC PNL [SQBMP] Order #: [id number] FUTURE LIPID PANEL BASIC [SQLIPB] Order #: [id number] FUTURE Prescriptions as of 11/30/2018 Sig: ESCITALOPRAM [...] (right) [R92.8] INVALID FOR* Encounter Status:Closed by [employer], PRODUSER on 12/15/18 Normal [facility] Vital Signs Date Time Vital Sign Value Performing Clinician Faci lity 08-30-2025 15:37-0400 Body temperature 97.5 [degF] Dr. Leah Salvador MD Work Phone: [facility] 08-30-2025 15:37-0400 Body weight 105.[address] Leah Salvador MD Work Phone: [facility] 08-30-2025 15:37-0400 Diastolic blood pressure 82 mm[Hg] Dr. Leah Salvador MD Work Phone: [facility] 08-30-2025 15:37-0400 Heart rate 80 /min Dr. Leah Salvador MD Work Phone: [facility] 08-30-2025 15:37-0400 Respiratory rate 16 /min Dr. Leah Salvador MD Work Phone: [facility] 08-30-2025 15:37-0400 SaO2% (BldA) [Mass fraction] 97 % Dr. Leah Salvador MD Work Phone: [facility] 08-30-2025 15:37-0400 Systolic blood pressure 156 mm[Hg] Dr. Leah Salvador MD Work Phone: [facility] 07-06-2025 14:20-0400 Body height 170.[address] Leah Salvador MD Work Phone: [facility] 07-06-2025 14:20-0400 Body mass index (BMI) [Ratio] 36.1 kg/m2 Dr. Leah Salvador MD Work Phone: [facility] 07-06-2025 14:20-0400 Body weight 104.[address] Leah Salvador MD Work Phone: [facility] 07-06-2025 14:20-0400 Diastolic blood pressure 78 mm[Hg] Dr. Leah Salvador MD Work Phone: [facility] 07-06-2025 14:20-0400 Heart rate 70 /min Dr. Leah Salvador MD Work Phone: [facility] 07-06-2025 14:20-0400 Respiratory rate 16 /min Dr. Leah Salvador MD Work Phone: [facility] 07-06-2025 14:20-0400 Systolic blood pressure 125 mm[Hg] Dr. Leah Salvador MD Work Phone: [facility] 05-29-2025 14:42-0400 Body temperature 98.3 [degF] Dr. Leah Salvador MD Work Phone: [facility] 05-29-2025 14:42-0400 Diastolic blood pressure 55 mm[Hg] Dr. Leah Salvador MD Work Phone: [facility] 05-29-2025 14:42-0400 Heart rate 63 /min Dr. Leah Salvador MD Work Phone: [facility] 05-29-2025 14:42-0400 Respiratory rate 16 /min Dr. Leah Salvador MD Work Phone: [facility] 05-29-2025 14:42-0400 SaO2% (BldA) [Mass fraction] 98 % Dr. Leah Salvador MD Work Phone: [facility] 05-29-2025 14:42-0400 Systolic blood pressure 134 mm[Hg] Dr. Leah Salvador MD Work Phone: [facility] 05-29-2025 12:45-0400 Inhaled oxygen flow rate 2 L/min Dr. Leah Salvador MD Work Phone: [facility] 05-29-2025 08:07-0400 Body height 170.[address] Leah Salvador MD Work Phone: [facility] 05-29-2025 08:07-0400 Body mass index (BMI) [Ratio] 35.5 kg/m2 Dr. Leah Salvador MD Work Phone: [facility] 05-29-2025 08:07-0400 Body weight 102.[address] Leah Salvador MD Work Phone: [facility] 05-23-2025 13:44-0400 Body height 172.[address] Leah Salvador MD Work Phone: [facility] 05-23-2025 13:44-0400 Body mass index (BMI) [Ratio] 34.8 kg/m2 Dr. Leah Salvador MD Work Phone: [facility] 05-23-2025 13:44-0400 Body weight 103.[address] Leah Salvador MD Work Phone: [facility] 05-23-2025 13:44-0400 Diastolic blood pressure 79 mm[Hg] Dr. Leah Salvador MD Work Phone: [facility] 05-23-2025 13:44-0400 Heart rate 66 /min Dr. Leah Salvador MD Work Phone: [facility] 05-23-2025 13:44-0400 Respiratory rate 17 /min Dr. Leah Salvador MD Work Phone: [facility] 05-23-2025 13:44-0400 SaO2% (BldA) [Mass fraction] 98 % Dr. Leah Salvador MD Work Phone: [facility] 05-23-2025 13:44-0400 Systolic blood pressure 134 mm[Hg] Dr. Leah Salvador MD Work Phone: [facility] 04-06-2025 10:05-0400 Body height 172.[address] Leah Salvador MD Work Phone: [facility] 04-06-2025 10:05-0400 Body mass index (BMI) [Ratio] 33.4 kg/m2 Dr. Leah Salvador MD Work Phone: [facility] 04-06-2025 10:05-0400 Body temperature 98.7 [degF] Dr. Leah Salvador MD Work Phone: [facility] 04-06-2025 10:05-0400 Body weight 99.[address] Leah Salvador MD Work Phone: [facility] 04-06-2025 10:05-0400 Diastolic blood pressure 80 mm[Hg] Dr. Leah Salvador MD Work Phone: [facility] 04-06-2025 10:05-0400 Heart rate 71 /min Dr. Leah Salvador MD Work Phone: [facility] 04-06-2025 10:05-0400 Respiratory rate 16 /min Dr. Leah Salvador MD Work Phone: [facility] 04-06-2025 10:05-0400 SaO2% (BldA) [Mass fraction] 99 % Dr. Leah Salvador MD Work Phone: [facility] 04-06-2025 10:05-0400 Systolic blood pressure 118 mm[Hg] Dr. Leah Salvador MD Work Phone: [facility] 01-24-2025 12:48-0500 Diastolic blood pressure 78 mm[Hg] Dr. Leah Salvador MD Work Phone: [facility] 01-24-2025 12:48-0500 Systolic blood pressure 114 mm[Hg] Dr. Leah Salvador MD Work Phone: [facility] 01-24-2025 10:44-0500 Body mass index (BMI) [Ratio] 33.3 kg/m2 Dr. Leah Salvador MD Work Phone: [facility] 01-24-2025 10:44-0500 Body temperature 96.9 [degF] Dr. Leah Salvador MD Work Phone: [facility] 01-24-2025 10:44-0500 Body weight 99.[address] Leah Salvador MD Work Phone: [facility] 01-24-2025 10:44-0500 Heart rate 81 /min Dr. Leah Salvador MD Work Phone: [facility] 01-24-2025 10:44-0500 Respiratory rate 16 /min Dr. Leah Salvador MD Work Phone: [facility] 01-24-2025 10:44-0500 SaO2% (BldA) [Mass fraction] 96 % Dr. Leah Salvador MD Work Phone: [facility] 02-24-2024 12:59-0400 Body height 172.[address] Leah Salvador Work Phone: [facility] 02-24-2024 12:59-0400 Body mass index (BMI) [Ratio] 36.1 kg/m2 Dr. Leah Salvador Work Phone: [facility] [facility]24 12:59-0400 Body temperature 99 [degF] Dr. Leah Salvador Work Phone: [facility] 02-24-2024 12:59-0400 Body weight 107.[address] Leah Salvador Work Phone: [facility] 02-24-2024 12:59-0400 Diastolic blood pressure 98 mm[Hg] Dr. Leah Salvador Work Phone: [facility] 02-24-2024 12:59-0400 Heart rate 107 /min Dr. Leah Salvador Work Phone: [facility] 02-24-2024 12:59-0400 Respiratory rate 20 /min Dr. Leah Salvador Work Phone: [facility] 02-24-2024 12:59-0400 SaO2% (BldA) [Mass fraction] 97 % Dr. Leah Salvador Work Phone: [facility] 02-24-2024 12:59-0400 Systolic blood pressure 152 mm[Hg] Dr. Leah Salvador Work Phone: [facility] 08-31-2023 07:31-0400 Body height 172.[address] Leah Salvador Work Phone: [facility] 08-31-2023 07:31-0400 Body mass index (BMI) [Ratio] 35.4 kg/m2 Dr. Leah Salvador Work Phone: [facility] 08-31-2023 07:31-0400 Body temperature 97.9 [degF] Dr. Leah Salvador Work Phone: [facility] 08-31-2023 07:31-0400 Body weight 105.[address] Leah Salvador Work Phone: [facility] 08-31-2023 07:31-0400 Diastolic blood pressure 82 mm[Hg] Dr. Leah Salvador Work Phone: [facility] 08-31-2023 07:31-0400 Heart rate 64 /min Dr. Leah Salvador Work Phone: [facility] 08-31-2023 07:31-0400 Respiratory rate 16 /min Dr. Leah Salvador Work Phone: [facility] 08-31-2023 07:31-0400 SaO2% (BldA) [Mass fraction] 97 % Dr. Leah Salvador Work Phone: [facility] 08-31-2023 07:31-0400 Systolic blood pressure 122 mm[Hg] Dr. Leah Salvador Work Phone: [facility] 08-03-2023 11:03-0400 Diastolic blood pressure 102 mm[Hg] Dr. Leah Salvador Work Phone: [facility] 08-03-2023 11:03-0400 Systolic blood pressure 146 mm[Hg] Dr. Leah Salvador Work Phone: [facility] 08-03-2023 10:10-0400 Body height 172.[address] Leah Salvador Work Phone: [facility] 08-03-2023 10:10-0400 Body mass index (BMI) [Ratio] 35.2 kg/m2 Dr. Leah Salvador Work Phone: [facility] 08-03-2023 10:10-0400 Body temperature 98.3 [degF] Dr. Leah Salvador Work Phone: [facility] 08-03-2023 10:10-0400 Body weight [address] Leah Salvador Work Phone: [facility] 08-03-2023 10:10-0400 Heart rate 60 /min Dr. Leah Salvador Work Phone: [facility] 08-03-2023 10:10-0400 Respiratory rate 16 /min Dr. Leah Salvador Work Phone: [facility] 08-03-2023 10:10-0400 SaO2% (BldA) [Mass fraction] 97 % Dr. Leah Salvador Work Phone: [facility] 10-14-2022 15:56-0500 Diastolic blood pressure 96 mm[Hg] Dr. Landry Bro Work Phone: [facility] Work Phone: 10-14-2022 15:56-0500 Systolic blood pressure 142 mm[Hg] Dr. Landry Bro Work Phone: [facility] Work Phone: 10-14-2022 15:06-0500 Body temperature 96.9 [degF] Dr. Landry Bro Work Phone: [facility] Work Phone: 10-14-2022 15:06-0500 Body weight 99.[address] Landry Bro Work Phone: [facility] Work Phone: 10-14-2022 15:06-0500 Heart rate 77 /min Dr. Landry Bor Work Phone: [facility] Work Phone: 10-14-2022 15:06-0500 Respiratory rate 18 /min Dr. Landry Bro Work Phone: [facility] Work Phone: 10-14-2022 15:06-0500 SaO2% (BldA) [Mass fraction] 99 % Dr. Landry Bro Work Phone: [facility] Work Phone: 09-24-2022 13:31-0400 Body height 172.[address] Landry Bro Work Phone: [facility] Work Phone: 09-24-2022 13:31-0400 Body mass index (BMI) [Ratio] 32.5 kg/m2 Dr. Landry Bro Work Phone: [facility] Work Phone: 09-24-2022 13:31-0400 Body weight 97.[address] Landry Bro Work Phone: [facility] Work Phone: 09-17-2022 13:53-0400 Body temperature 96.2 [degF] Dr. Landry Bro Work Phone: [facility] Work Phone: 09-17-2022 13:53-0400 Body weight 95.[address] Landry Bro Work Phone: [facility] Work Phone: 09-17-2022 13:53-0400 Diastolic blood pressure 96 mm[Hg] Dr. Landry Bro Work Phone: [facility] Work Phone: 09-17-2022 13:53-0400 Heart rate 83 /min Dr. Landry Bro Work Phone: [facility] Work Phone: 09-17-2022 13:53-0400 Respiratory rate 16 /min Dr. Landry Bro Work Phone: [facility] Work Phone: 09-17-2022 13:53-0400 SaO2% (BldA) [Mass fraction] 99 % Dr. Landry Bro Work Phone: [facility] Work Phone: 09-17-2022 13:53-0400 Systolic blood pressure 156 mm[Hg] Dr. Landry Bro Work Phone: [facility] Work Phone: 08-26-2022 15:04-0400 Body mass index (BMI) [Ratio] 32.3 kg/m2 Dr. Landry Bro Work Phone: [facility] Work Phone: 08-26-2022 15:04-0400 Body temperature 98.7 [degF] Dr. Landry Bro Work Phone: [facility] Work Phone: 08-26-2022 15:04-0400 Body weight 96.[address] Landry Bro Work Phone: [facility] Work Phone: 08-26-2022 15:04-0400 Diastolic blood pressure 84 mm[Hg] Dr. Landry Bro Work Phone: [facility] Work Phone: 08-26-2022 15:04-0400 Heart rate 65 /min Dr. Landry Bro Work Phone: [facility] Work Phone: 08-26-2022 15:04-0400 Respiratory rate 14 /min Dr. Landry Bro Work Phone: [facility] Work Phone: 08-26-2022 15:04-0400 SaO2% (BldA) [Mass fraction] 99 % Dr. Landry Bro Work Phone: [facility] Work Phone: 08-26-2022 15:04-0400 Systolic blood pressure 140 mm[Hg] Dr. Landry Bro Work Phone: [facility] Work Phone: 04-09-2022 07:37-0400 Body height 172.[address] Landry Bro Work Phone: [facility] Work Phone: 04-09-2022 07:37-0400 Body mass index (BMI) [Ratio] 33.3 kg/m2 Dr. Landry Bro Work Phone: [facility] Work Phone: 04-09-2022 07:37-0400 Body temperature 97.5 [degF] Dr. Landry Bro Work Phone: [facility] Work Phone: 04-09-2022 07:37-0400 Body weight 99.[address] Landry Bro Work Phone: [facility] Work Phone: 04-09-2022 07:37-0400 Diastolic blood pressure 81 mm[Hg] Dr. Landry Bro Work Phone: [facility] Work Phone: 04-09-2022 07:37-0400 Heart rate 70 /min Dr. Landry Bro Work Phone: [facility] Work Phone: 04-09-2022 07:37-0400 Respiratory rate 17 /min Dr. Landry Bro Work Phone: [facility] Work Phone: 04-09-2022 07:37-0400 SaO2% (BldA) [Mass fraction] 96 % Dr. Landry Bro Work Phone: [facility] Work Phone: 04-09-2022 07:37-0400 Systolic blood pressure 120 mm[Hg] Dr. Landry Bro Work Phone: [facility] Work Phone: 01-09-2022 05:30-0500 Body mass index (BMI) [Ratio] 32.2 kg/m2 Dr. Landry Bro Work Phone: [facility] Work Phone: 01-09-2022 05:30-0500 Body temperature 97.3 [degF] Dr. Landry Bro Work Phone: [facility] Work Phone: 01-09-2022 05:30-0500 Body weight 96.[address] Landry Bro Work Phone: [facility] Work Phone: 01-09-2022 05:30-0500 Diastolic blood pressure 72 mm[Hg] Dr. Landry Bro Work Phone: [facility] Work Phone: 01-09-2022 05:30-0500 Heart rate 78 /min Dr. Landry Bro Work Phone: [facility] Work Phone: 01-09-2022 05:30-0500 Respiratory rate 18 /min Dr. Landry rBo Work Phone: [facility] Work Phone: 01-09-2022 05:30-0500 SaO2% (BldA) [Mass fraction] 97 % Dr. Landry Bro Work Phone: [facility] Work Phone: 01-09-2022 05:30-0500 Systolic blood pressure 117 mm[Hg] Dr. Landry Bro Work Phone: [facility] Work Phone: Encounters Encounter Date Encounter Type Care Provider Facility Start: 10-12-2025 ambulatory Leah Zap Facility :[facility] Start: 09-29-2025 End: 09-29-2025 ambulatory Leah Madeleine Facility:[facility] Start: 09-25-2025 End: 09-25-2025 ambulatory Leah Zap Facility:[facility] Start: 09-14-2025 ambulatory Leah Cagelay Facility :[facility] Start: 09-14-2025 End: 09-14-2025 ambulatory Leahnahomi Cagelay Facility:[facility] Start: 08-30-2025 End: 08-30-[address] Javier Christie MD -[facility] Work Phone: Start: 08-30-2025 End: 08-30-[address] Leah Salvador MD Work Phone: -[facility] Start: 08-09-2025 Non-patient / Non-visit Dr. Carlos Muniz MD -[facility] Start: 08-09-2025 End: 08-09-2025 Patient encounter procedure Diane DAMON -[facility] Work Phone: Start: 08-09-2025 End: 08-09-[address] Leah Salvador MD Work Phone: -[facility] Start: 07-27-2025 Non-patient / Non-visit Dr. Javier Christie MD -[facility] Start: 07-27-2025 End: 07-27-[address] Leah Salvador MD Work Phone: -[facility] Start: 07-27-2025 End: 07-27-2025 Patient encounter procedure Diane Broderick PA -Cardiovascular Services Work Phone: Start: 07-27-2025 End: 07-27-2025 ambulatory Leah Salvador Facility:[facility] Start: 07-06-2025 End: 07-06-2025 Patient encounter procedure Diane DAMON -[facility] Work Phone: Start: 07-06-2025 End: 07-06-[address] Leah Salvador MD Work Phone: -[facility] Start: 05-29-2025 End: 05-29-2025 Non-patient / Non-visit [facility]. Omar [facility]ado [facility] Start: 05-29-2025 End: 05-29-2025 Admission to same day surgery center Dr. Omar Guardado MD -[facility] Start: 05-29-2025 End: 05-29-[address] Leah Salvador MD Work Phone: -[facility] Start: 05-23-2025 End: 05-23-[address] Omar Guardado MD -[facility] Work Phone: Start: 05-23-2025 End: 05-23-[address] Leah Salvador MD Work Phone: -[facility] Start: 05-11-2025 End: 05-11-[address] Leah Salvador MD Work Phone: [facility] Work Phone: Start: 05-11-2025 End: 05-11-2025 Patient encounter procedure Dony DAMON -Nuclear Medicine [facility] Work Phone: Start: 05-11-2025 End: 05-11-2025 ambulatory Leah Salvador Facility:[facility] Start: 04-06-2025 End: 04-06-[address] Leah Salvador MD Work Phone: [facility] Work Phone: Start: 04-06-2025 End: 04-06-2025 Patient encounter procedure Dony DAMON -Laboratory [facility] Start: 04-06-2025 End: 04-06-2025 Patient encounter procedure Dony DAMON -[facility] Work Phone: Start: 04-06-2025 End: 04-06-[address] Leah Salvador MD Work Phone: [facility] Work Phone: Start: 04-06-2025 End: 04-06-2025 ambulatory Leha Salvador Facility:[facility] Start: 01-24-2025 End: 01-24-[address] Leah Salvador MD -[facility] Work Phone: Start: 01-24-2025 End: 01-24-2025 ambulatory Leah Salvador Facility:[facility] Start: 12-06-2024 End: 12-06-2024 ambulatory Leah Salvador Facility:[facility] Start: 11-28-2024 End: 11-28-2024 ambulatory Leah Salvador Facility:[facility] Start: 11-28-2024 End: 11-28-2024 ambulatory Shyam Valencia Facility:[facility] Start: 11-01-2024 End: 11-01-2024 ambulatory Leah Cagelay Facility:[facility] Start: 10-24-2024 End: 10-24-2024 ambulatory Leah Salvador Facility:[facility] Start: 02-24-2024 End: 02-24-[address] Leah Salvador Work Phone: [facility] Work Phone: Start: 02-24-2024 End: 02-24-[address] Leah Salvador Work Phone: [facility]atory, [place] Start: 02-24-2024 End: 02-24-[address] Leah Salvador Work Phone: [facility] Internal Medicine Work Phone: Start: 09-21-2023 End: 09-21-[address] Leah Salvador Work Phone: [facility] Work Phone: Start: 09-21-2023 End: 09-21-[address] [facility] [place] Start: 09-03-[address] Leah Salvador Work Phone: [facility]-Health & Wellness Work Phone: Start: 08-31-2023 End: 08-31-[address] Leah Salvador Work Phone: [facility] Internal Medicine Work Phone: Start: 08-07-2023 End: 08-07-[address] Leah Salvador Work Phone: [facility] Work Phone: Start: 08-07-2023 End: 08-07-[address] Leah Salvador Work Phone: [facility] Work Phone: Start: 08-03-2023 End: 08-03-[address] Leah Salvador Work Phone: [facility] Work Phone: Start: 08-03-2023 End: 08-03-[address] Leah Salvador Work Phone: [facility] [place] Start: 08-03-2023 End: 08-03-[address] Leah Salvador Work Phone: [facility] Internal Medicine Work Phone: Start: 10-15-[address] Terri Bro Work Phone: [facility]-Physical Therapy Start: 10-14-2022 End: 10-14-[address] Landry Bro Work Phone: [facility] Work Phone: Start: 10-14-2022 End: 10-14-[address] Landry Bro Work Phone: [facility] [place] Start: 10-14-2022 End: 10-14-[address] Landry Bro Work Phone: [facility] Internal Medicine Start: 09-24-2022 End: 09-24-[address] Landry Bro Work Phone: [facility] Orthopaedic Specia Start: 09-17-2022 End: 09-17-[address] Landry Bro Work Phone: [facility] Internal Medicine Start: 09-01-2022 Non-patient / Non-visit Dr. Landry Bro Work Phone: [facility] Start: 09-01-2022 End: 09-01-[address] Landry Bro Work Phone: [facility]-Cardiovascular Services Start: 08-26-2022 End: 08-26-[address] Landry Bro Work Phone: [facility] Internal Medicine Start: 04-09-2022 End: 04-09-[address] Land[facility] Start: 04-08-2022 End: 04-08-[address] Landry Bro Work Phone: [facility]-Outpatient Breast Imaging Start: 04-01-2022 End: 04-01-[address] Landry Bro Work [facility] process [facility] Start: 01-09-2022 End: 01-09-[address] [facility] Procedures Date Procedure Procedure Detail Performing Clinician [...] Date Care Activity Detail Author Start: 05-29-2025 Anes intraperitoneal upper abdomen w/laps nos ANES IPER UPR ABD NOS [facility] Start: 05-29-2025 Laparoscopic cholecystectomy LAPAROSCOPIC CHOLECYSTECTOMY [facility] Start: 05-29-2025 Laparoscopy surg cholecystectomy LAPAROSCOPIC CHOLECYSTECTOMY [facility] Start: 05-29-2025 Patient discharge [facility] Start: 04-06-2025 Amylase [Enzymatic activity/volume] in Serum or Plasma [facility] Start: 04-06-2025 CBC W Auto Differential panel - Blood [facility] Start: 04-06-2025 Comprehensive metabolic 2000 panel - Serum or Plasma [facility] Start: 04-06-2025 Triacylglycerol lipase measurement [facility] Start: 08-03-2023 Patient referral [facility] Work Phone: Start: 09-05-2022 Patient referral [facility] Work Phone: Alanine aminotransfe rase [Enzymatic activity/volume] in Serum or Plasma [facility] Albumin [Mass/volume ] in Serum or Plasma [facility] Alkaline phosphatase [Enzymatic activity/volume] in Serum or Plasma [facility] Anion gap in Serum o r Plasma [facility] Bilirubin, total measurement [facility] BUN/Creatinine ratio [facility] Calcium [Mass/volume ] in Serum or Plasma [facility] Carbon dioxide, tota l [Moles/volume] in Central venous blood [facility] Creatinine [Mass/vol ume] in Serum or Plasma [facility] Erythrocyte mean corpuscular volume determination [facility] Glucose [Mass/volume ] in Serum or Plasma [facility] Hematocrit [Volume Fraction] of Blood [facility] Hemoglobin [Mass/vol ume] in Blood [facility] Leukocytes [#/volume ] in Blood [facility] Mean corpuscular hemoglobin concentration determination [facility] Mean corpuscular hemoglobin determination [facility] Measurement of renal function [facility] Measurement of segme ntal blood pressure of artery of limb using doppler ultrasonography [facility] Neutrophil count [facility] Neutrophil percent differential count [facility] Patient referral [facility] Work Phone: Platelets [#/volume] in Blood [facility] Potassium measurement [facility] Radionuclide study o f abdomen [facility] Red blood cell count [facility] Red cell distributio n width determination [facility] Serum chloride measurement [facility] Sodium measurement [facility] Total protein measurement [facility] Urea nitrogen [Mass/volume] in Serum or Plasma [facility] Immunizations Immunization Date Immunization Notes Care Provider Fa cility 12-10-2021 Covid (Pfizer) Dr. Landry Bro Work Phone: [facility] 02-07-2021 Covid (Pfizer) Dr. Landry Bro Work Phone: [facility] 01-17-2021 Covid (Pfizer) Dr. Landry Bro Work Phone: [facility] 08-31-2020 influenza, injectabl e, quadrivalent, preservative free Dr. Leah Salvador Work Phone: [facility] 08-31-2020 influenza, seasonal, injectable Dr. Landry Bro Work Phone: [facility] Work Phone: 08-18-2017 Influenza, injectabl e, Madin Janet Canine Kidney, preservative free, quadrivalent Dr. Landry Bro Work Phone: [facility] 07-24-2017 influenza, injectabl e, quadrivalent, preservative free Dr. Leah Salvador Work Phone: [facility] 07-24-2017 influenza, seasonal, injectable Dr. Landry Bro Work Phone: [facility] Work Phone: Payers Date Payer Category Payer Self-pay [id number] 2024 Unknown [id number] Unknown [id number] Unknown [id number] 2.16.8 [id number] Unknown [id number] 2.16.8 [id number] Unknown [id number] 2.16.8 [id number] Unknown [id number] 2.16.8 40.1.757920.3.579.2.462 Unknown [id number] 2.16.8 40.1.365504.3.579.2.462 Unknown [id number] 2.16.8 40.1.267653.3.579.2.462 Unknown [id number] 2.16.8 40.1.005089.3.579.2.462 Unknown [id number] 2.16.8 40.1.330862.3.579.2.462 Unknown [id number] 2.16.8 40.1.132841.3.579.2.462 Unknown [id number] 2.16.8 40.1.009933.3.579.2.462 Unknown [id number] 2.16.8 40.1.506859.3.579.2.462 Unknown [id number] 2.16.8 40.1.475264.3.579.2.462 Unknown [id number] 2.16.8 40.1.133109.3.579.2.462 Unknown [id number] 2.16.8 40.1.259237.3.579.2.462 Unknown [id number] 2.16.8 40.1.808666.3.579.2.462 Unknown [id number] 2.16.8 40.1.960235.3.579.2.462 Unknown [id number] 2.16.8 40.1.392498.3.579.2.462 Unknown [id number] 2.16.8 40.1.123094.3.579.2.462 Unknown [id number] 2.16.8 40.1.931827.3.579.2.462 Unknown [id number] 2.16.8 40.1.230575.3.579.2.462 Unknown [id number] 2.16.8 40.1.987638.3.579.2.462 Unknown [id number] 2.16.8 40.1.511587.3.579.2.462 Unknown [id number] 2.16.8 40.1.517175.3.579.2.462 Unknown [id number] 2.16.8 40.1.577253.3.579.2.462 Unknown [id number] 2.16.8 40.1.213323.3.579.2.462 Social History Date Type Detail Facility Start: 04-09-2022 End: 02-24-2024 Tobacco smoking status NHIS Unknown if ever smoked [facility] Start: 09-06-2020 Non-smoker [facility] Start: 1970 Sex Assigned At Female [facility] Start: 12-06-2024 End: 2025 Tobacco smoking status NHIS Never smoked tobacco (finding) [facility] Not [facility] NEGATED: Highlighted row Not [facility] Medical Equipment Procedure Code Equipment Code Equipment Original Text Equipment Identifier Dates Robot-assisted laparoscopic cholecystectomy without cholangiography OTIS DAVID LG FDA Start: 05-29-2025 Robot-assisted laparoscopic cholecystectomy without cholangiography OTIS DAVID [facility] Start: 05-29-2025 Robot-assisted laparoscopic cholecystectomy without cholangiography OTIS DAVID [facility] FDA Start: 05-29-2025 Robot-assisted laparoscopic cholecystectomy without cholangiography CLIP,OTIS [place] FDA Start: 05-29-2025 Robot-assisted laparoscopic cholecystectomy without cholangiography CLIP,OTIS [place] FDA Start: 05-29-2025 Robot-assisted laparoscopic cholecystectomy without cholangiography CLIP,OTIS [place] FDA Start: 05-29-2025 Robot-assisted laparoscopic cholecystectomy without cholangiography CLIP,OTIS [place] FDA Start: 05-29-2025 Robot-assisted laparoscopic cholecystectomy without cholangiography CLIP,OTIS [place] FDA Start: 05-29-2025 Goals Date Patient Goal Desired Activity /State Mental Status Date Assessment Result Facility 05-29-2025 Cognitive function Level Of Consciousness [facility] [address] [place] [facility] Work Phone: Clinical Notes 04-01-2022 to 09-14-2025 Note Date & Type Note Facility 09-14-2025 Note [facility] Medical Records Department [address] [place] [id number] History Physical Exam 09/14/25 1326 MR#: [id number] Acct: [id number] Name: CARLA ANDERSON Rep #: [id number] : 1970 55 From: Javier Christie MD PCP: Dr. Leah Salvador MD Status:[facility] Location: [place] [address] History and Physical Allergies No Known Allergies Allergy (Verified 08/30/25 15:38) Medications ???Medication ???Instructions ???Recorded ???Confirmed ???Type rosuvastatin 5 mg tablet 5 mg PO DAILY #90 tabs 03/27/25 08/30/25 Rx multivitamin 1 tab PO QDAY 07/06/25 08/30/25 History escitalopram oxalate 5 mg tablet 5 mg PO DAILY #90 TABLETS 07/11/25 08/30/25 Rx lisinopril 20 mg tablet See Rx Instructions .Route 07/31/25 08/30/25 Rx .COMPLEX #90 tabs Is last menstrual period known: No Post menopausal: Yes Patient : No Have you fallen in the past year?: No PFSH Medical History History of left heart catheterization Depression Anxiety High cholesterol History of stress test History of echocardiogram Cardiology follow-up encounter Wears contact lenses Wears glasses History of IBS Non-smoker Shortness of breath on exertion Hypertension Sleep apnea Fatigue Throat tightness Difficulty swallowing Anxiety and depression Heart murmur Hyperlipidemia High blood pressure Frequent headaches Anemia Surgical History Hx of cholecystectomy Hx of tubal ligation History of colonoscopy [...] safe at home: Yes HPI HPI HPI: CARLA ANDERSON, is a 55 F who presents to the office today for evaluation of right wrist scab/bleeding several months after a radial access cardiac catheterization She states initially site appeared normal and there was no skin compromise. Over the past several weeks scab has formed and sloughed with some bleeding easily controlled with manual pressure, non-pulsatile. She had a duplex that suggested possible fistula flow adjacent to area. Her cath was negative for any significant stenosis and no intervention was required. ROS General General: Yes weight change and fatigue; No appetite, colon cancer, breast cancer or weakness HEENT HEENT: No difficulty swallowing, eye injury, eye surgery, swollen glands or hoarseness Endo Endocrine: Yes heat intolerance; No thyroid disease, diabetes mellitus, thyroid cancer, Hair loss or cold intolerance Skin Skin: No rash or changing moles Musc Musculoskeletal: No back problems, arthritis, rheumatoid arthritis, gout or joint pain Cardio Cardiovascular: Yes murmur and high blood pressure; No pacemaker, heart disease, atrial fibrillation, heart attack, heart stent, palpitations, shortness of breath with exertion or chest pain Psych Psychiatric: Yes depression and anxiety; No hearing voices Resp Respiratory: Yes shortness of breath, No sleep apnea, No cough, No COPD, No asthma, No emphysema and No wheezing Gastro Gastrointestinal: No abdominal pain, Yes nausea or vomiting, No diarrhea, No constipation, No blood in stool, No acid reflux, No hemorrhoids, No ulcers, No gallbladder problem and No black,tarry stools Flash [...] radicular pain, No restless legs, No sensory defi (more content not included)... [facility] 05-29-2025 Consult note Note Date/Time May 29, 2025 11:25 am [facility] Medical Records Department [address] [place] [address] Anesthesia Postop Eval II 05/29/25 1125 MR#: [id number] Acct: [id number] Name: CARLA ANDERSON Rep #:[id number] : 1970 55 From: Donnie Zendejas MD PCP: Dr. Leah Salvador MD Status:REG [facility] Y Race: C Location: [place] [address] Anesthesia Postop Eval I Sum Postop Eval Completion status Anesthesia document: Postop Eval 1 completed: Yes Anesthesia Postop Eval I Summary Anesthesia Postop Eval I Summary: Anesthesia Postop Eval I: Assessment Summary 3 Airway patent Yes 05/29/25 10:58 [employer] EQUIPMENT MECHANIC.APAT Spontaneous unlabored Yes 05/29/25 10:58 [employer] E[employer]IPMENT MECHANIC.APAT respirations Mental status Awake 05/29/25 10:58 [employer]AGE [employer]STRU[employer] EQUIPMENT MECHANIC.APAT nausea No 05/29/25 10:58 [employer]AGE [employer]STRU[employer] EQUIPMENT MECHANIC.APAT Vomiting No 05/29/25 10:58 [employer]AGE [employer]STRU[employer] EQUIPMENT MECHANIC.APAT Anesthesia Postop Eval I: Fluid Summary Crystalloid volume administer 600 05/29/25 10:58 [employer]AGE [employer] EQUIPMENT MECHANIC.APAT (ml) Colloids volume administered ( ml) Blood Product volume administered (ml) Total IV fluid infused 600 05/29/25 10:58 [employer] EQUIPMENT MECHANIC.APAT Anesthesia Postop Eval I: Summary Notes Anesthesia Complication No 05/29/25 10:58 [employer] EQUIPMENT MECHANIC.APAT Anesthesia Complication Comment: Post-operative progress note Anesthesia: Postop Eval II Evaluation Mental status: Awake Pain Level: 2 nausea: No Vomiting: No 05/29/25 1125 <Electronically signed by Donnie Zendejas MD > Date _ Donnie Zendejas MD Cosigner Signature: Date CC: ~ Signed [facility] Work Phone: 1(242) 504-644407-07-2025 Consult note Author Graeme Mccormack [facility] Note Date/Time May 29, 2025 10:58 am [facility] Medical Records Department [address] [place] [address] Anesthesia Postop Eval I 05/29/25 1058 MR#: [id number] Acct: [id number] Name: JUSTINCARLASherlyn FERNANDEZ Rep #:[id number] : 1970 55 From: Graeme Mccormack CRNA PCP: Dr. Leah Salvador MD Status:REG SDC Y Race: C Location: [place] [address] Anesthesia: Postop Eval I Current Vital Signs [...] Postop Eval 1 completed: Yes 05/29/25 1058 <Electronically signed by Graeme garcia [employer] EQUIPMENT MECHANIC> Date _ Graeme Easton [employer] EQUIPMENT MECHANIC Cosigner Signature: Date ___ CC: ~ Signed [facility] Work Phone: [phone]) [phone] Discharge summary Author Omar Guardado [facility] Note Date/Time May 29, 2025 10:47 am [facility] Medical Records Department [address] [place] [address] Instructions for Home/Discharge Instructions 05/29/25 1045 MR#: [id number] Acct: [id number] Name: CARLA ANDERSON REBECCA Rep #:[id number] : 1970 55 From: Omar longoria MD PCP: Dr. Leah Salvador MD Status:REG [facility] Discharge Instructions Procedure Gallbladder Diet Discharge [...] to schedule 2 week follow up appointment. [phone] Test Results: Test results from this visit will be discussed in further detail at your follow- up appointment, if applicable. Discharge Plan Admission Attending Provider: Omar Guardado Primary Care Provider: Leah Salvador Instructions Print Language: Australian Discharge Orders/Prescriptions Prescriptions: New oxycodone 5 mg [...] EVERY DAY Referrals / Follow Up: Leah Salavdor MD [Primary Care Provider] - Disposition Disposition (needs filled in before D/C Order can be placed): Home, Self Care 05/29/25 1047<Electronically signed by Omar Guardado MD>Omar Guardado MD CC: Dr. Leah Salvador MD ~ Signed [facility] Work Phone: 1(357) 802-917607-07-2025 Consult note [facility] Medical Records Department [address] [place] [address] Anesthesia Postop Eval II 05/29/25 1125 MR#: [id number] Acct: [id number] Name: CARLA ANDERSON Rep #:[id number] : 1970 55 From: Donnie Zendejas MD PCP: Dr. Leah Salvador MD Status:REG [facility] Y Race: C Location: [place]- Anesthesia Postop Eval I Sum Postop Eval Completion status Anesthesia document: Postop Eval 1 completed: Yes Anesthesia Postop Eval I Summary Anesthesia Postop Eval I Summary: Anesthesia Postop Eval I: Assessment Summary 3 Airway patent Yes 05/29/25 10:58 [employer] MECH[employer]IC.APAT Spontaneous unlabored Yes 05/29/25 10:58 [employer]MENT MECHANIC.APAT respirations Mental status Awake 05/29/25 10:58 [employer] EQU[employer]MENT MECHANIC.APAT nausea No 05/29/25 10:58 [employer]AGE [employer] EQUIPMENT MECHANIC.APAT Vomiting No 05/29/25 10:58 [employer]AGE [employer] EQUIPMENT MECHANIC.APAT Anesthesia Postop Eval I: Fluid Summary Crystalloid volume administer 600 05/29/25 10:58 [employer] EQUIPMENT MECHANIC.APAT (ml) Colloids volume administered ( ml) Blood Product volume administered (ml) Total IV fluid infused 600 05/29/25 10:58 [employer] EQUIPMENT MECHANIC.APAT Anesthesia Postop Eval I: Summary Notes Anesthesia Complication No 05/29/25 10:58 [employer]IPMENT MECHANIC.APAT Anesthesia Complication Comment: Post-operative progress note Anesthesia: Postop Eval II Evaluation Mental status: Awake Pain Level: 2 nausea: No Vomiting: No 05/29/25 1125 > Date _ Donnie Murphy Signature: Date CC: ~ Signed [facility]07-07-2025 Consult note [facility] Medical Records Department [address] [place] [address] Anesthesia Postop Eval I 05/29/25 1058 MR#: [id number] Acct: [id number] Name: JUSTINCARLASherlyn FERNANDEZ Rep #:[id number] : 1970 55 From: Graeme Mccormack CRNA PCP: Dr. Leah Salvador MD Status:REG SDC Y Race: C Location: [place] [address] Anesthesia: Postop Eval I Current Vital Signs [...] Eval 1 completed: Yes 05/29/25 1058 n [employer] MECHANIC> Date _ Graeme Mccormack [employer]QU[employer]MENT MECHANIC Cosigner Signature: Date CC: ~ Signed [facility]07-07-2025 Consult note Author Graeme Mccormack [facility] Note Date/Time May 29, 2025 8:55a [facility] Medical Records Department [address] [facility] [place] [address] Anesthesia Postop Eval I 05/29/25 0854 MR#: [id number] Acct: [id number] Name: CARLA ANDERSON Rep #:[id number] : 1970 55 From: Graeme Mccormack CRNA PCP: Dr. Leah Salvador MD Status:REG [facility] Y Race: C Location: [place] [address] Anesthesia: Postop Eval I Current Vital Signs [...] Postop Eval 1 completed: Yes 05/29/25 0855 <Electronically signed by Graeme garcia [employer] EQU[employer]MENT MECHANIC> Date _ Graeme Mccormack [employer] EQUIPMENT MECHANIC Cosigner Signature: Date CC: ~ Signed [facility] Work Phone: 1(237) 609-947907-07-2025 Discharge summary [facility] Medical Records Department [address] [place] [address] Instructions for Home/Discharge Instructions 05/29/25 1045 MR#: [id number] Acct: [id number] Name: CARLA ANDERSON Rep #:[id number] : 1970 55 From: Omar longoria MD PCP: Dr. Leah Salvador MD Status:REG [facility] Discharge Instructions Procedure Gallbladder Diet Discharge [...] to schedule 2 week follow up appointment. [phone] Test Results: Test results from this visit will be discussed in further detail at your follow- up appointment, if applicable. Discharge Plan Admission Attending Provider: Omar Guardado Primary Care Provider: Leah Salvador Instructions Print Language: Australian Discharge Orders/Prescriptions Prescriptions: New oxycodone 5 mg [...] CC: Dr. Leah Salvador MD ~ Signed [facility]07-07-2025 Procedure note [facility] Medical Records Department [address] [place] [address] Operative Report 05/29/25 1041 MR#: [id number] Acct: [id number] Name: CARLA ANDERSON Rep #:[id number] : 1970 55 From: Omar longoria MD PCP: Dr. Leah Salvador MD Status:[facility] Location: [place] [address] Operative Report (Standard) Operative Information Date of Procedure: 05/29/25 Pre-Operative Diagnosis: Biliary dyskinesia Post-Operative Diagnosis: Biliary dyskinesia Surgery/Procedure Performed: Robotic assisted laparoscopic cholecystectomy head paper tester: Yes Waitress: Benja Soto Tasks completed by health care assistant: Opening & closing and Retracting Type of [...] to close the midline fascia using a [id number] 0 Vicryl suture. Next theincisions were injected with local anesthetic and closed with interrupted 4-0 Monocryl sutures. Steri-Strips and bandages were applied. Patient was taken to PACU in stable condition. Surgical Findings: None Complications Complications: No Admit VTE Documentation VTE Mechan Device Prophylaxis: SCD's 05/29/25 1045 Cosigner Signature (if applicable): CC: Dr. Leah Salvador MD; Dr. Omar Guardado MD~ Signed [facility]07-07-2025 History and physical note Author Omar Guardado [facility] Note Date/Time May 29, 2025 8:38a m [facility] Medical Records Department [address] [place] [address] History & Physical Exam 05/29/25 0838 MR#: [id number] Acct: [id number] Name: CARLA ANDERSON Rep #:[id number] : 1970 55 From: Omar longoria MD PCP: Dr. Leah Salvador MD Status:[facility] Location: [place] [address] History and Physical Date of Admission: 05/29/25 [...] tertiary care center. Omar Guardado MD Pager: [facility] [address] [place] [address], [address] [place] [address] Office: I have examined the patient and the H&P has been reviewed. There are no clinicalchanges since date of exam. 05/29/25 0838 <Electronically signed by Omar Guardado MD> Cosigner Signature (if applicable): CC: Dr. Leah Salvador MD; Dr. Omar Guardado MD~ Signed [facility] Work Phone: 1(730) [phone] Consult note Author Donnie cassy [facility] Note Date/Time May 29, 2025 7:54a m [facility] Medical Records Department [address] [place] [address] Pre-Anesthesia Evaluation 05/29/25 0753 MR#: [id number] Acct: [id number] Name: CARLA ANDERSON Rep #:[id number] : 1970 55 From: Donnie Zendejas MD PCP: Dr. Leah Salvador MD Status:REG SD Y Race: C Location: [place] [address]- ASA Classification* ASA Classification ASA Classification: 2 [...] Robotic Cholecystectomy Anesthesia History Anesthesia History - mandrel puller: Anesthesia History - mandrel puller Hx Hospitalization No 05/25/25 10:04 Any Problems [...] take am of surgery PONV PONV - mandrel puller: PONV - mandrel puller Female Yes 05/25/25 10:04 HX of Motion [...] 05/23/25 13:44 Respiratory Assessment Respiratory Assessment - mandrel puller: Respiratory Tract Infection Hx - mandrel puller Hx Respiratory Tract Infection No 05/25/25 10:04 STOP Sleep Apnea STOP Sleep Apnea - mandrel puller: STOP Sleep Apnea - mandrel puller Hx Hypertension Yes 05/25/25 10:04 Hx Sleep [...] Tobacco Use History Tobacco Use History - mandrel puller: Tobacco Use History - mandrel puller Tobacco Use Smoking Status Never smoker 05/25/25 10:04 Hx Tobacco Use No 05/25/25 10:04 Years Smoking Packs Smoked per Day Smoking Cessation Date was within the last 15 years Hx Smoking Cessation Date Hx Smoking Cessation Counseling Hematologic Medial History Hematologic Hx - mandrel puller: 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 Specify any problems Hx of Preganancy in last 3 No 05/25/25 10:04 Months Nurse Filling Out Transfusion [facility] 05/25/25 10:04 & Questions: Date: 05/25/25 05/25/25 10:04 Time: 10:10 05/25/25 10:04 Patient unable to answer at this time (ie. confused, unrespo /Reproduction History /Reproductive History - mandrel puller: /Reproductive Hx- mandrel puller Hx Now No 05/25/25 10:04 Gestational Age [...] no additional complaints, except as documented. 05/29/25 1791 <Electronically signed by Donnie Zendejas MD > Date _ Donnie Zendejas MD Cosigner Signature: Date CC: ~ Signed [facility] Work Phone: 1(277) 593-585907-07-2025 Consult note [facility] Medical Records Department [address] [place] [address] Anesthesia Postop Eval I 05/29/25 0854 MR#: [id number] Acct: [id number] Name: CARLA ANDERSON Rep #:[id number] : 1970 55 From: Graeme Mccormack CRNA PCP: Dr. Leah Salvador MD Status:REG [facility] Y Race: C Location: [place] [address] Anesthesia: Postop Eval I Current Vital Signs [...] Eval 1 completed: Yes 05/29/25 0855 n [employer] MECHANIC> Date _ Graeme Mccormack [employer] EQU[employer]MENT MECHANIC Cosigner Signature: Date CC: ~ Signed [facility]07-07-2025 History and physical note [facility] Medical Records Department [address] [place] [address] History & Physical Exam 05/29/25 0838 MR#: [id number] Acct: [id number] Name: CARLA ANDERSON Rep #:[id number] : 1970 55 From: Omar longoria MD PCP: Dr. Leah Salvador MD Status:[facility] Location: [place] [address] History and Physical Date of Admission: 05/29/25 [...] tertiary care center. Omar Guardado MD Pager: [facility] [address] [facility], [address] [place] [address] Office: I have examined the patient and the H&P has been reviewed. There are no clinicalchanges since date of exam. 05/29/25837 Cosigner Signature (if applicable): CC: Dr. Leah Salvador MD; Dr. Omar Guardado MD~ Signed [facility]07-07-2025 [facility] Medical Records Department [address] [place] [address] History Physical Exam 05/29/25837 MR#: [id number] Acct: [id number] Name: CARLA ANDERSON Rep #: [id number] : 1970 55 From: Omar Guardado MD PCP: Dr. Leah Salvador MD Status:[facility] Location: [place] [address] History and Physical Date of Admission: 05/29/25 [...] General: cooperative Orientation: alert and oriented x3 (more content not included)...[facility]07-07-2025 Consult note [facility] Medical Records Department [address] [place] [address] Pre-Anesthesia Evaluation 05/29/25 0753 MR#: [id number] Acct: [id number] Name: CARLA ANDERSON Rep #:[id number] : 1970 55 From: Donnie Zendejas MD PCP: Dr. Leah Salvador MD Status:REG [facility] Y Race: C Location: [place] [address] ASA Classification* ASA Classification ASA Classification: 2 [...] Robotic Cholecystectomy Anesthesia History Anesthesia History - mandrel puller: Anesthesia History - mandrel puller Hx Hospitalization No 05/25/25 10:04 Any Problems [...] take am of surgery PONV PONV - mandrel puller: PONV - mandrel puller Female Yes 05/25/25 10:04 HX of Motion [...] 05/23/25 13:44 Respiratory Assessment Respiratory Assessment - mandrel puller: Respiratory Tract Infection Hx - mandrel puller Hx Respiratory Tract Infection No 05/25/25 10:04 STOP Sleep Apnea STOP Sleep Apnea - mandrel puller: STOP Sleep Apnea - mandrel puller Hx Hypertension Yes 05/25/25 10:04 Hx Sleep [...] Tobacco Use History Tobacco Use History - mandrel puller: Tobacco Use History - mandrel puller Tobacco Use Smoking Status Never smoker 05/25/25 10:04 Hx Tobacco Use No 05/25/25 10:04 Years Smoking Packs Smoked per Day Smoking Cessation Date was within the last 15 years Hx Smoking Cessation Date Hx Smoking Cessation Counseling Hematologic Medial History Hematologic Hx - mandrel puller: 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 Specify any problems Hx of Preganancy in last 3 No 05/25/25 10:04 Months Nurse Filling Out Transfusion [facility] 05/25/25 10:04 & Questions: Date: 05/25/25 05/25/25 10:04 Time: 10:10 05/25/25 10:04 Patient unable to answer at this time (ie. confused, unrespo /Reproduction History /Reproductive History - mandrel puller: /Reproductive Hx- mandrel puller Hx Now No 05/25/25 10:04 Gestational Age [...] documented. 05/29/25 0754 > Date _ [facility] Date CC: ~ Signed [facility]07-01-2025 Evaluation note* Diagnosis Onset Date Resolution Status Admit Date Nonfunctioning gallbladder acute May 23, 2025 1:32pm Essential hypertension [place] 2024 2:10pm Injury of radial artery acute [place] 2024 2:10pm Heart murmur chronic July 06, 2025 2:10pm [facility] Work Phone: 1(539) 396-470007-01-2025 Progress [facility] [address] [place] [address] OFFICE VISIT Date of Service: 05/23/25 MR#: [id number] Acct: [id number] Name: CARLA ANDERSON Rep #: [id number] : 1970 Provider: Dr. Priscilla Guardado MD Age/Sex: 54/F Location: [facility] Status: Signed Intake Vital Signs 04/06/25 10:05 [...] tertiary care center. Omar Guardado MD Pager: [facility] [address] [place] [address] Office: Coding Level of Care Code Off vis,new,level 4 Diagnoses Nonfunctioning gallbladder K82.8 05/23/25 1353 dillon ANGELO> Date _ Omar Guardado MD Cosigner Signature: Date (if applicable) CC: Dr. Leah Salvador MD ~ [facility]07-01-2025 Progress note Author Omar Guardado [facility] Note Date/Time May 23, 2025 1:53p m [facility] [address] [place] [address] OFFICE VISIT Date of Service: 05/23/25 MR#: [id number] Acct: [id number] Name: CARLA ANDERSON Rep #: [id number] : 1970 Provider: Dr. Priscilla Guardado MD Age/Sex: 54/F Location: [facility] Status: Signed Intake Vital Signs 04/06/25 10:05 [...] tertiary care center. Omar Guardado MD Pager: [facility] [address] [place] [address], [address] [place] [address] Office: Coding Level of Care Code Off vis,new,level 4 Diagnoses Nonfunctioning gallbladder K82.8 05/23/25 1353 <Electronically signed by Omar carranza MD> Date _ Omar Guardado MD Cosigner Signature: Date (if applicable) CC: Dr. Leah Salvador MD ~ [facility] [employer] Work Phone: 1(647) 469-775606-19-2025 Nuclear medicine Diagnostic study note [facility] Imaging Services [address] [place] [address] Hepatobilliary Img w/Pharm Int MR#: [id number] Acct: [id number] Name: CARLA ANDERSON Rep #: [id number] : 1970 F 54 From: Nicho Sommer MD PCP: Dr. Leah Salvador MD Status: REG CLI Study:Hepatobilliary Img w/Pharm Int Date of Exam: 05/11/25 Exam# [id number] Ordering Dr: Servando Blank PROCEDURE: HEPATOBILLIARY IMG [...] IMPRESSION: Abnormal gallbladder ejection fraction. Reading Location: [place] [address] CC: Dr. Leah Salvador MD; NELSON Giraldo ~ Production Proofreader: Signed [facility]05-15-2025 Evaluation note* Diagnosis Onset Date Resolution Status Admit Date Obesity acute April 06, 2025 9:44am Right upper quadrant abdomin al pain acute April 06, 2025 9 :44am Nonfunctioning gallbladder acute May 23, 2025 1:32pm [facility] Work Phone: 1(824) 607-558005-15-2025 Evaluation note* Diagnosis Onset Date Resolution Status Admit Date Obesity acute April 06, 2025 9:44am Right upper quadrant abdomin al pain acute April 06, 2025 9 :44am Nonfunctioning gallbladder acute May 23, 2025 1:32pm Essential hypertension [place] 2024 2:10pm Injury of radial artery acute [place] 2024 2:10pm Heart murmur chronic July 06, 2025 2:10pm Hyperlipidemia chronic June 2:10pm [facility] Work Phone: 1(408) 651-193305-15-2025 Evaluation note* Diagnosis Onset Date Resolution Status Admit Date Obesity acute April 06, 2025 9:44am Right upper quadrant abdomin al pain acute April 06, 2025 9 :44am Nonfunctioning gallbladder acute May 23, 2025 1:32pm Essential hypertension acute [place] 2024 2:10pm Injury of radial artery acute A ugust 2024 2:10pm Heart murmur chronic July 06, 2025 2:10pm [facility] Work Phone: 1(177) 503-843705-15-2025 [facility] [address] [place] [address] [place] [address] OFFICE VISIT Date of Service: 04/06/25 MR#: [id number] Acct: [id number] Name: CARLA ANDERSON Rep #: [id number] : 1970 Provider: NELSON Giraldo Age/Sex: 54/F Location: [facility] [place] Status: Signed Intake Vital Signs 01/24/25 10:44 [...] UPPER RT SIDE PAIN Chief Complaint: fu Paper Coater Required: No Is patient in pain?: Yes [...] alleviate pressure which is not longer helping. [facility] Medical History Wears contact lenses Wears [...] oriented x3 Limitations: mental status not altered [facility] Head: normocephalic and atraumatic Ears: hearing grossly [...] PO BID 30 tabs 0RF 04/06/25 1104 NELSON DAMON> Date _ Dony DAMON Cosigner Signature: Date (if applicable) CC: ~ [facility]05-15-2025 Progress note Author Dony Blank [facility] Note Date/Time April 06, 2025 11:04 am [facility] [address] [place] [address] [place] [address] OFFICE VISIT Date of Service: 04/06/25 MR#: [id number] Acct: [id number] Name: CARLA ANDERSON Rep #: [id number] : 1970 Provider: NELSON Giraldo Age/Sex: 54/F Location: [facility] [place] Status: Signed Intake Vital Signs 01/24/25 10:44 [...] UPPER RT SIDE PAIN Chief Complaint: fu Paper Coater Required: No Is patient in pain?: Yes [...] alleviate pressure which is not longer helping. [facility] Medical History Wears contact lenses Wears [...] oriented x3 Limitations: mental status not altered [facility] Head: normocephalic and atraumatic Ears: hearing grossly [...] Cosigner Signature: Date (if applicable) CC: ~ [facility] Work Phone: 1(141) 970-882403-04-2025 Evaluation note* Diagnosis Onset Date Resolution Status Admit Date Asthma acute January 24 10:41am Essential hypertension acute [facility] 2024 10:41am RUQ abdominal pain noneactive January 24, 2025 10:41am Right sided sciatica noneactive [facility] 2024 10:41am Moderate major depression noneactive January 24, 2025 10:41am Intermittent chest pain noneactive [facility] 2024 10:41am Type 2 diabetes mellitus noneactive January 24, 2025 10:41am Obesity (BMI 30-39.9) noneactive [facility] 2024 10:41am Obesity acute April 06, 2025 9:44am Right upper quadrant abdomin al pain acute April 06, 2025 9 :44am [facility] [employer] [facility] Work Phone: 1(848) 916-557703-04-2025 Evaluation note* Diagnosis Onset Date Resolution Status Admit Date Asthma acute January 24 10:41am Essential hypertension acute [facility] 2024 10:41am RUQ abdominal pain noneactive January 24, 2025 10:41am Right sided sciatica noneactive [facility] 2024 10:41am Moderate major depression noneactive January 24, 2025 10:41am Intermittent chest pain noneactive [facility] 2024 10:41am Type 2 diabetes mellitus noneactive January 24, 2025 10:41am Obesity (BMI 30-39.9) noneactive [facility] 2024 10:41am Obesity acute April 06, 2025 9:44am Right upper quadrant abdomin al pain acute April 06, 2025 9 :44am Nonfunctioning gallbladder acute May 23, 2025 1:32pm [facility] Work Phone: [phone] 407-2890285642-06-3222 NotePap Smear Specimen AdequacyMay 2021 12:00pmCommentSatisfactory for evaluation. Endocervical and/or squamous metaplasticcells (endocervical component)are present.[employer] INTERFACED A#[id number] [facility]heastern [facility] Work Phone: Comment on above:Satisfactory for evaluation. Endocervical and/or squamous metaplasticcells (endocervical component)are present.04-01-2022 NotePap Smear Specimen AdequacyMay 2021 12:00pmComment Satisfactory for evaluation. Endocervical and/or squamous metaplasticcells (endocervical component)are present.[employer] A#[id number] Southeastern Medical Center Work Phone: Comqdrc on above:Satisfactory for evaluation. Endocervical and/or squamous metaplasticcells (endocervical component)are present.Evaluation note* Diagnosis Onset Date Resolution Status Asthma acute Obesity acute Asthma acute [facility] Work Phone: Evaluation note* Diagnosis Onset Date [...] neactive Headache noneactive Left knee pain noneactive [facility] Work Phone: Evaluation note* Diagnosis Onset Date Resolution Status Asthma acute Essential hypertension acute Moderate major depression no neactive Urinary frequency noneactive Obesity (BMI 30.0-34.9) none active Vitamin D deficiency noneact chapis [facility] Work Phone: Evaluation note* Diagnosis Onset Date Resolution Status Asthma acute Essential hypertension acute Moderate major depression no neactive Urinary frequency noneactive Obesity (BMI 30.0-34.9) none active Vitamin D deficiency noneact chapis Asthma acute Essential hypertension acute Moderate major depression no neactive Mixed hyperlipidemia noneact chapis Obesity (BMI 30.0-34.9) none active Vitamin D deficiency noneact chapis [facility] Work Phone: Evaluation note* Diagnosis Onset Date Resolution Status Essential hypertension acute Fatigue acute Palpitations acute Anxiety and depression chron ic Hyperlipidemia chronic [facility] Work Phone: Reason for referral (narrative)No reason for referral information availableSt. [facility] Work Phone: Summary Purpose Family [...] breast Unknown sister Asthma Unknown Advance Directives No Advanced Directives Records Found Advance Directive Response Recorded Date/ Time Living Will No May 07, 2021 9:38am Power of Dip Painter No May 07 9:38am Advance Directive Response Recorded Date/ Time Living Will No May 07, 2021 8:38am Power of Dip Painter No May 07 8:38am Advance Directive Response Recorded Date/ Time Living Will No February 24, 2024 11:16am Power of Dip Painter No February 23 11:16am Advance Directive Response Recorded Date/ Time Advance Directives No December 06, 2024 8:07am Advance Directive Response Recorded Date/ Time Do you have a Healthcare Power of Dip Painter? 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 MURMUR Amb [...] 2025 9:31 am Chief Complaint Admit Date fu January 24, [...] Robotic Cholecystectomy May 29, 2025 7 :38am PREOP May 29, 2025 7:58a m Robotic Cholecystectomy May 29, 2025 8 :38am O/D for FU/Lump in Wrist from Cath Aug[facility] t 2024 2:10pm Reason for Visit Admit Date Obesity April 06, 2025 9:44a m Right upper quadrant abdominal pain April 06, 2025 9:44am Nonfunctioning gallbladder May 23 1:32pm Essential hypertension July 06, 2025 2:10pm Injury of radial artery July 06 2:10pm Heart murmur July 06, 2025 2: 10pm Hyperlipidemia July 06, 2025 2: 10pm Chief Complaint Admit Date UPPER RT SIDE PAIN April 06, 2025 9:44a m RUQ PAIN May 11, 2025 9:31 am ABNORMAL HIDA May 23, 2025 1:32p m Robotic Cholecystectomy May 29, 2025 7 :38am PREOP May 29, 2025 7:58a m Robotic Cholecystectomy May 29, 2025 8 :38am O/D for FU/Lump in Wrist from Cath Aug 2024 2:10pm MURMUR, RT RADIAL ARTERY INJURY Septembe r 2024 2:49pm Reason for Visit Admit Date Obesity April 06, 2025 9:44a m Right upper quadrant abdominal pain April 06, 2025 9:44am Nonfunctioning gallbladder May 23 1:32pm Essential hypertension July 06, 2025 2:10pm Injury of radial artery July 06 2:10pm Heart murmur July 06, 2025 2: 10pm Chief Complaint Admit Date RUQ PAIN May 11, 2025 9:31 am ABNORMAL HIDA May 23, 2025 1:32p m Robotic Cholecystectomy May 29, 2025 7 :38am PREOP May 29, 2025 7:58a m Robotic Cholecystectomy May 29, 2025 8 :38am O/D for FU/Lump in Wrist from [facility] 2024 2:10pm MURMUR, RT RADIAL ARTERY INJURY Septembe r 2024 2:49pm MURMUR August 09, 2025 10:48am Reason for Visit Admit Date Nonfunctioning gallbladder May 23 1:32pm Essential hypertension July 06, 2025 2:10pm Injury of radial artery July 06 2:10pm Heart murmur July 06, 2025 2: 10pm Chief Complaint Admit Date RUQ PAIN May 11, 2025 9:31 am ABNORMAL HIDA May 23, 2025 1:32p m Robotic Cholecystectomy May 29, 2025 7 :38am PREOP May 29, 2025 7:58a m Robotic Cholecystectomy May 29, 2025 8 :38am O/D for FU/Lump in Wrist from Cath [facility] 2024 2:10pm MURMUR, RT RADIAL ARTERY INJURY Septembe r 2024 2:49pm MURMUR August 09, 2025 10:48am Questionable Fistula August 30, 2025 3 :29pm Additional Source Comments INFORMATION SOURCE (unrecogn ized section and content) DATE CREATED AUTHOR 11/22/2019 [facility] DATE CREATED AUTHOR AUTHOR'S ORGANIZ ATION 10/04/2025 [facility] Goals (unrecognized section and content) Goals [...] Leah Salvador MD Primary Care Provider Active NELSON Ellis Attending Provider, Referring Prov ider Active [...] April 06, 2025 Dony Blank PA, PA Attending Provider Active St art: April 06, 2025 End: April 06, 2025 Team Status: Active Member Role Status Dates Dr. Leah Salvador MD Primary Care Provider Active Start: April 06, 2025 Dony Blank PA, PA Attending Provider Active St art: April 06, 2025 Dony Blank PA, PA Referring Provider Active St art: April 06, 2025 Team Status: Inactive Member Role Status Dates Dr. Leah Salvador MD Primary Care Provider Active Start: April 06, 2025 End: April 06, 2025 Dony Blank PA, PA Attending Provider Active St art: April 06, 2025 End: April 06, 2025 Dony Blank PA, PA Referring Provider Active St art: April 06, 2025 End: April 06, 2025 Team Status: Inactive Member Role Status Dates Dr. Leah Salvador MD Primary Care Provider Active Start: May 11, 2025 End: May 11, 2025 Dony DAMON, PA Attending Provider Active St art: May [...] May 11, 2025 End: May 11, 2025 NELSON Ellis Attending Provider Active St art: May 11, 2025 End: May 11, 2025 NELSON Ellis Referring Provider Active St art: May 11, [...] Care Provider Active Start: May 29, 2025 Team Status: Active Member Role/Relationship Status Dates Dr. Leah Salvador MD Primary Care Provider Active Start: May 29, 2025 End: May 29, 2025 Dr. Carlos Muniz MD Attending Provider Active S tart: May 29, 2025 End: May 29, 2025 Dr. Carlos Muniz MD Referring Provider Active S tart: May 29, 2025 End: May 29, 2025 Team Status: Active Member Role/Relationship Status Dates Dr. Omar Guardado MD Attending Provider Active Start: May 29, 2025 Dr. Omar Guardado MD Referring Provider Active Start: May 29, 2025 Dr. Omar Guardado MD Other Provider Active Start: May 29, 2025 Dr. Leah Salvador MD Primary Care Provider Active Start: May 29, 2025 Team Status: Inactive Member Role/Relationship Status Dates Dr. Leah Salvador MD Primary Care Provider Active Start: July 06, 2025 End: July 06, 2025 Dr. Leah Salvador MD Referring Provider Active Start: July 06, 2025 End: July 06, 2025 Diane DAMON PA Attending Provider Active Start: July 06, 2025 End: July 06, 2025 Team Status: Inactive Member Role/Relationship Status Dates Dr. Leah Salvador MD Primary Care Provider Active Start: July 27, 2025 End: July 27, 2025 Diane DAMON PA Attending Provider Active Start: July 27, 2025 End: July 27, 2025 Diane DAMON, PA Referring Provider Active Start: July 27, 2025 End: July 27, 2025 Team Status: Active Member Role/Relationship Status Dates Dr. Leah Salvador MD Primary Care Provider Active Start: July 27, 2025 Dr. Javier Christie MD Attending Provider Active S tart: July 27, 2025 Team Status: Active Member Role/Relationship Status Dates Dr. Leah Salvador MD Primary care physician Active Team Status: Inactive Member Role/Relationship Status Dates Dr. Leah Salvador MD Primary care physician Active Start: May 11, 2025 End: May 11, 2025 Dony DAMON PA Attending physician Active S tart: May 11, 2025 End: May 11, 2025 Dony DAMON PA Referring Provider Active St art: May 11, 2025 End: May 11, 2025 Team Status: Inactive Member Role/Relationship Status Dates Dr. Leah Salvador MD Referring Provider Active Start: May 23, 2025 End: May 23, 2025 Dr. Omar Guardado MD Attending physician Active Start: May 23, 2025 End: May 23, 2025 Team Status: Inactive Member Role/Relationship Status Dates Dr. Omar Guardado MD Attending physician Active Start: May 29, 2025 End: May 29, 2025 Dr. Omar Guardado MD Referring Provider Active Start: May 29, 2025 End: May 29, 2025 Dr. Leah Salvador MD Primary care physician Active Start: May 29, 2025 End: May 29, 2025 Team Status: Active Member Role/Relationship Status Dates Dr. Leah Salvador MD Primary care physician Active Start: May 29, 2025 End: May 29, 2025 Dr. Carlos Muniz MD Attending physician Active Start: May 29, 2025 End: May 29, 2025 Dr. Carlos Muniz MD Referring Provider Active S tart: May 29, 2025 End: May 29, 2025 Team Status: Active Member Role/Relationship Status Dates Dr. Omar Guardado MD Attending physician Active Start: May 29, 2025 Dr. Omar Guardado MD Referring Provider Active Start: May 29, 2025 Dr. Omar Guardado MD Nurse Practitioner Active Start: May 29, 2025 Dr. Leah Salvador MD Primary care physician Active Start: May 29, 2025 Team Status: Inactive Member Role/Relationship Status Dates Dr. Leah Salvador MD Primary care physician Active Start: July 06, 2025 End: July 06, 2025 Dr. Leah Salvador MD Referring Provider Active Start: July 06, 2025 End: July 06, 2025 Diane Broderick PA, PA Attending physician Active Start: July 06, 2025 End: July 06, 2025 Team Status: Inactive Member Role/Relationship Status Dates Dr. Leah Salvador MD Primary care physician Active Start: July 27, 2025 End: July 27, 2025 Diane Broderick PA, PA Attending physician Active Start: July 27, 2025 End: July 27, 2025 NELSON Meeks Referring Provider Active Start: July 27, 2025 End: July 27, 2025 Team Status: Active Member Role/Relationship Status Dates Dr. Leah Salvador MD Primary care physician Active Start: July 27, 2025 Dr. Javier Christie MD Attending physician Active Start: July 27, 2025 Team Status: Inactive Member Role/Relationship Status Dates Dr. Leah Salvador MD Primary care physician Active Start: August 09, 2025 End: August 09, 2025 NELSON Meeks Attending physician Active Start: August 09, 2025 End: August 09, 2025 NELSON Meeks Referring Provider Active Start: August 09, 2025 End: August 09, 2025 Team Status: Active Member Role/Relationship Status Dates Dr. Leah Salvador MD Primary care physician Active Start: August 09, 2025 Dr. Carlos Muniz MD Attending physician Active Start: August 09, 2025 Team Status: Inactive Member Role/Relationship Status Dates Dr. Leah Salvador MD Primary care physician Active Start: August 30, 2025 End: August 30, 2025 Dr. Leah Salvador MD Referring Provider Active Start: August 30, 2025 End: August 30, 2025 Dr. Javier Christie MD Attending physician Active Start: August 30, 2025 End: August 30, 2025 FOR RECORDS PERTAINING TO PATIENTS WHO [...] BE BASED ON THE PRIMARY CLINICAL RECORDS. [employer] provides no warranty or guarantee of the accuracy or completeness of information in this document.
[2025-11-22 08:00] LABS: Hematocrit 40.9 % (37-47); Hemoglobin 13.7 g/dL (12.0-15.0); Immature Granulocytes Count 0.030 X10^3/uL (0.0-0.0); Mean Corp Hgb Conc 33.5 g/dL (32-36); Mean Corpuscular Volume 84.9 fL (81-99); Mean Platelet Vol. 12.4 fl (6.2-12.0); NRBC Flagged by Analyzer 0 % (0-5); Platelet Count 261 K/mm3 (150-450); RBC Distribution Width CV 12.7 % (11.6-14.6); RBC Distribution Width SD 39.1 fl (35.1-43.9); Red Blood Count 4.82 M/mm3 (4.2-5.4); White Blood Count 6.8 K/mm3 (4.4-11.0)
--- NOTE | 2025-11-22 08:00 | BI_ITS ---
EXAM: SCRN MAMM (CAD)W/JOCY BILAT DATE: 11/22/2025 CLINICAL HISTORY: F, Age 55 y/o , SCREENING TECHNIQUE: Procedure Code: [id number] Modality: MG Procedure: SCRN MAMM (CAD)W/JOCY BILAT COMPARISON: Prior exam(s) were compared FINDINGS: TISSUE DENSITY: The breasts are heterogeneously dense, which may obscure small masses. Bilateral Breast Mammographic Findings: No significant masses, calcifications or other abnormalities are identified. BI/SCRN MAMM (CAD)W/JOCY BILAT IMPRESSION: No mammographic evidence of malignancy. OVERALL FINAL ASSESSMENT BI-RADS 1: NEGATIVE. RECOMMENDATION: Routine annual follow-up in 1 Year Additional Recommendation none A letter with findings and recommendations will be mailed to the patient. Reading Location: [id number]
[2025-11-22 08:54] LABS: AST(SGOT) 20 U/L (<=31); Alanine Aminotransfer ALT/SGPT 16 U/L (<=34); Albumin, Serum 4.2 g/dL (3.5-5.0); Alkaline Phosphatase 77 U/L (35-104); Anion Gap 12 (7-18); BUN 8 mg/dL (4-19); BUN/Creat Ratio 14.0 RATIO (10-20); Calcium,Total 9.4 mg/dL (7.6-11.0); Carbon Dioxide 22.5 mmol/L (20.0-29.0); Chloride 104 mmol/L (96-106); Cholesterol 247 mg/dL (<=200); Globulin 3.3 g/dL (2.2-4.2); Glucose 123 mg/dL (70-99); Low Density Lipoprotein Calc. 152 mg/dL; Potassium 4.3 mmol/L (3.5-5.1); Triglycerides 256 mg/dL; Very Low Density Lipoprotein 51 mg/dL (5-40); Vitamin D,25 Hydroxy 18.2 ng/mL (30-100); cholesterol:hdl ratio screen 5.15
== END | disposition home or self-care (01) ==
LOC: OPBI 07:27
PROVIDERS: PCP Internal Medicine; Referring Provider Internal Medicine; Visit Provider Internal Medicine
DX: Z12.31 Encounter for screening mammogram for malignant neoplasm of breast (principal); F32.1 Major depressive disorder, single episode, moderate; E11.9 Type 2 diabetes mellitus without complications; I10 Essential (primary) hypertension; E55.9 Vitamin D deficiency, unspecified
CPT/HCPCS: 36415; 77063; 77067; 80053; 80061; 82306; 85025